=== PATIENT | female | born 1990 | race Caucasian/White ===

== ENCOUNTER → 2023-12-25 | Outpatient (CLI) | payer OTHER, SELFPAY ==
[2024-01-01 21:07] LABS: HPV APTIMA, High Risk Positive (Negative); HPV Genotype 16, Aptima Negative (Negative); HPV Genotype 18,45 Aptima Positive (Negative)
== END | disposition home or self-care (01) ==
PROVIDERS: Referring Provider Nurse Practitioner Family; Visit Provider Nurse Practitioner Family
DX: Z12.4 Encounter for screening for malignant neoplasm of cervix (principal)
CPT/HCPCS: 87624; 88175; G0145

== ENCOUNTER → 2024-03-01 | Outpatient (CLI) | payer OTHER, SELFPAY ==
[2024-03-04 21:07] LABS: Chlamydia By Nucleic Acid AMP Negative (Negative); Gonococcus By Nucleic Acid AMP Negative (Negative)
== END | disposition home or self-care (01) ==
LOC: LABSPEC 15:40
PROVIDERS: Referring Provider Advanced Practice Midwife; Visit Provider Advanced Practice Midwife
DX: Z34.00 Encounter for supervision of normal first pregnancy, unspecified trimester (principal)
CPT/HCPCS: 87086; 87491; 87591

== ENCOUNTER → 2024-04-02 | Outpatient (CLI) | payer OTHER, SELFPAY ==
[2024-04-02 10:59] LABS: Absolute Lymphocyte Count 2.43 X10^3/uL (0.83-4.51); Absolute Neutrophil Count 6.7 X10^3/uL (2.0-7.7); Basophil# 0.03 X10^3/uL; Basophil% 0.3 % (0-1); Eosinophil# 0.13 X10^3/uL; Eosinophils% 1.3 % (0-5); Hematocrit 38.5 % (37-47); Lymphocyte # 2.43 X10^3/ul (0.83-4.51); Lymphocyte % 24.8 % (19-41); Mean Corp Hgb Conc 33.8 g/dL (32-36); Mean Corpuscular Hgb 28.1 pg (27.0-32.0); Mean Corpuscular Volume 83.2 fL (81-99); Mean Platelet Vol. 11.4 fl (6.2-12.0); Monocyte# 0.51 X10^3/uL; Monocyte% 5.2 % (0-10); NRBC Flagged by Analyzer 0 % (0-5); Neutrophil # 6.67 X10^3/uL (2.7-7.7); Neutrophil % 68.1 % (47-70); Platelet Count 269 K/mm3 (150-450); RBC Distribution Width CV 13.6 % (11.6-14.6); RBC Distribution Width SD 41.1 fl (35.1-43.9); Red Blood Count 4.63 M/mm3 (4.2-5.4); White Blood Count 9.8 K/mm3 (4.4-11.0)
[2024-04-02 20:39] LABS: HIV Nonreactive (Nonreactive); Hepatitis C Antibody Nonreactive (Nonreactive); Rubella IgG REAC (Nonreactive); Syphilis Antibodies Nonreactive (Nonreactive)
[2024-04-03 16:05] LABS: Hepatitis B Surface Antigen Nonreactive (Nonreactive)
[2024-04-03 20:54] LABS: Hemoglobin A1c 5.2 % (<=5.6)
== END | disposition home or self-care (01) ==
LOC: BWCLAB 09:51
PROVIDERS: Referring Provider Advanced Practice Midwife; Visit Provider Advanced Practice Midwife
DX: Z34.01 Encounter for supervision of normal first pregnancy, first trimester (principal)
CPT/HCPCS: 83036; 85025; 86703; 86762; 86780; 86803; 86850; 86900; 86901; 87340

== ENCOUNTER → 2024-06-24 | Outpatient (CLI) | payer OTHER, SELFPAY ==
[2024-06-24 16:58] LABS: Absolute Lymphocyte Count 1.97 X10^3/uL (0.83-4.51); Absolute Neutrophil Count 7.8 X10^3/uL (2.0-7.7); Basophil# 0.02 X10^3/uL; Basophil% 0.2 % (0-1); Hematocrit 33.4 % (37-47); Lymphocyte # 1.97 X10^3/ul (0.83-4.51); Lymphocyte % 18.8 % (19-41); Mean Corp Hgb Conc 32.9 g/dL (32-36); Mean Corpuscular Hgb 27.9 pg (27.0-32.0); Mean Corpuscular Volume 84.8 fL (81-99); Mean Platelet Vol. 10.4 fl (6.2-12.0); Monocyte# 0.52 X10^3/uL; NRBC Flagged by Analyzer 0 % (0-5); Neutrophil % 74.5 % (47-70); Platelet Count 290 K/mm3 (150-450); RBC Distribution Width CV 14.4 % (11.6-14.6); RBC Distribution Width SD 44.6 fl (35.1-43.9); Red Blood Count 3.94 M/mm3 (4.2-5.4); White Blood Count 10.5 K/mm3 (4.4-11.0)
[2024-06-24 17:47] LABS: Glucose Challenge Gest 1H 50g 139 mg/dL (70-140); HIV Nonreactive (Nonreactive); Syphilis Antibodies Nonreactive (Nonreactive)
== END | disposition home or self-care (01) ==
LOC: BWCLAB 15:37
PROVIDERS: Obstetrics & Gynecology; Referring Provider Advanced Practice Midwife; Visit Provider Advanced Practice Midwife
DX: O09.92 Supervision of high risk pregnancy, unspecified, second trimester (principal); Z3A.00 Weeks of gestation of pregnancy not specified; Z13.1 Encounter for screening for diabetes mellitus
CPT/HCPCS: 36415; 82950; 85025; 86703; 86780

== ENCOUNTER → 2024-07-03 | Outpatient (CLI) | payer OTHER, SELFPAY ==
[2024-07-03 07:13] LABS: Glucose GTT-Gestation. Fasting 96 mg/dL (<105)
[2024-07-03 11:26] LABS: Glucose GTT-Gestational 1 Hr 162 mg/dL (<190)
[2024-07-03 13:07] LABS: Glucose GTT-Gestational 3 Hr 134 L (<145)
[2024-07-03 13:27] LABS: Glucose GTT-Gestational 2 Hr 103 mg/dL (<165)
== END | disposition home or self-care (01) ==
LOC: LAB 06:44
PROVIDERS: Referring Provider Obstetrics & Gynecology; Visit Provider Obstetrics & Gynecology
DX: Z13.1 Encounter for screening for diabetes mellitus (principal)
CPT/HCPCS: 36415; 82951; 82952

== ENCOUNTER → 2024-07-22 | Outpatient (CLI) | payer OTHER, SELFPAY ==
--- NOTE | 2024-07-22 16:05 | US_ITS ---
PROCEDURE: OB LIMITED WITH BIOMETRICS 07/22/2024 REASON FOR EXAM: GROWTH TECHNIQUE: OB LIMITED WITH BIOMETRICS COMPARISON: None FINDINGS Number: 1 Position: Vertex Placental Position: Posterior and not low-lying Placental Abnormalities: No evidence of previa. DIMENSIONS: Biparietal Diameter: 8.3 cm: 33 weeks and 4 days: 98 percentile./ Head Circumference: 30.4 cm: 33 weeks and 6 days: 93rd percentile/ Abdominal Circumference: 27.4 cm: 31 weeks and 3 days: 72nd percentile/ Femur Length: 6.1 cm: 31 weeks and 6 days: 71st percentile/ ESTIMATED WEIGHT: 1880 g plus/-282 g ESTIMATED WEIGHT PERCENTILE (24+ weeks): 83 ESTIMATED GESTATIONAL AGE: Baseline: 30 weeks and 4 days By Ultrasound: 33 weeks and 0 days ESTIMATED DATE OF DELIVERY: Baseline: September 26, 2024 By Ultrasound: September 09, 2024 BIOPHYSICAL ASSESSMENT: Amniotic Fluid Volume: 5.7 Amniotic Fluid Index: 11.2 (8-24 cm normal range) Cardiac Motion: 152 beats per minute (average) Trunk and Limb Motion: Present. MATERNAL ANATOMY: Adnexa: Neither maternal ovary is successfully identified. US/OB Limited With Biometrics IMPRESSION: Single live intrauterine gestation with a mean gestational age of 33 weeks and 0 days. Reading Location: [facility]--1
== END | disposition home or self-care (01) ==
LOC: US 16:02
PROVIDERS: Referring Provider Nurse Practitioner Women's Health; Visit Provider Nurse Practitioner Women's Health
DX: O26.849 Uterine size-date discrepancy, unspecified trimester (principal); Z3A.00 Weeks of gestation of pregnancy not specified
CPT/HCPCS: 76816

== ENCOUNTER → 2024-08-21 | Outpatient (CLI) | payer OTHER, SELFPAY ==
--- NOTE | 2024-08-21 07:55 | US_ITS ---
PROCEDURE: OB LIMITED WITH BIOMETRICS 08/21/2024 REASON FOR EXAM: GROWTH Large for dates. TECHNIQUE: OB LIMITED WITH BIOMETRICS COMPARISON: Prior study dated July 22, 2024. FINDINGS Number: 1 Position: Vertex Placental Position: Posterior and not low-lying. Placental Abnormalities: No evidence of previa. DIMENSIONS: Biparietal Diameter: 9.4 cm: 38 weeks and 2 days: 100 percentile/ Head Circumference: 32.5 cm: 36 weeks and 5 days: 64 percentile/ Abdominal Circumference: 33.2 cm: 37 weeks and 1 day: 97 percentile/ Femur Length: 7.2 cm: 37 weeks and 1 day: 91st percentile/ ESTIMATED WEIGHT: 3220 g plus/-483 g ESTIMATED WEIGHT PERCENTILE (24+ weeks): 97 ESTIMATED GESTATIONAL AGE: Baseline: 34 weeks and 6 days By Ultrasound: 36 weeks and 6 days ESTIMATED DATE OF DELIVERY: Baseline: September 26, 2024 By Ultrasound: September 12, 2024 BIOPHYSICAL ASSESSMENT: Amniotic Fluid Volume: 5.3 cm Amniotic Fluid Index: 11.5 (8-24 cm normal range) Cardiac Motion: 145 beats per minute (average) Trunk and Limb Motion: Present. MATERNAL ANATOMY: Adnexa: Neither maternal ovary is successfully identified. US/OB Limited With Biometrics IMPRESSION: Single live intrauterine gestation with a mean gestational age of 37 weeks and 1 day. The measurements obtained today fall with the normal expected range. Reading Location: [place] [id number]
--- NOTE | 2024-08-21 07:55 | US_ITS ---
PROCEDURE: OB LIMITED WITH BIOMETRICS 08/21/2024 REASON FOR EXAM: GROWTH Large for dates. TECHNIQUE: OB LIMITED WITH BIOMETRICS COMPARISON: Prior study dated July 22, 2024. FINDINGS Number: 1 Position: Vertex Placental Position: Posterior and not low-lying. Placental Abnormalities: No evidence of previa. DIMENSIONS: Biparietal Diameter: 9.4 cm: 38 weeks and 2 days: 100 percentile/ Head Circumference: 32.5 cm: 36 weeks and 5 days: 64 percentile/ Abdominal Circumference: 33.2 cm: 37 weeks and 1 day: 97 percentile/ Femur Length: 7.2 cm: 37 weeks and 1 day: 91st percentile/ ESTIMATED WEIGHT: 3220 g plus/-483 g ESTIMATED WEIGHT PERCENTILE (24+ weeks): 97 ESTIMATED GESTATIONAL AGE: Baseline: 34 weeks and 6 days By Ultrasound: 36 weeks and 6 days ESTIMATED DATE OF DELIVERY: Baseline: September 26, 2024 By Ultrasound: September 12, 2024 BIOPHYSICAL ASSESSMENT: Amniotic Fluid Volume: 5.3 cm Amniotic Fluid Index: 11.5 (8-24 cm normal range) Cardiac Motion: 145 beats per minute (average) Trunk and Limb Motion: Present. MATERNAL ANATOMY: Adnexa: Neither maternal ovary is successfully identified. US/OB Limited With Biometrics IMPRESSION: Single live intrauterine gestation with a mean gestational age of 37 weeks and 1 day. The measurements obtained today fall with the normal expected range. Reading Location: [place] [id number]
--- OUTSIDE RECORDS SUMMARY | 2024-08-21 08:18 | XMS RPT_ITS | CCD ---
Author Organization [facility] CliniSyga Care Team Providers Care Home Health Care Physician Name Role Phone Ankush CHOPRA-CLaura Attending Provider [phone] Ankush CHOPRA-CLaura Referring Provider [phone] Care Physician, No Primary Primary Care Provider Unavailable Care Physician, No Primary Referring Provider Un available Earline Andrade CNM Attending Provider [phone] Earline Andrade CNM Referring Provider [phone] Shmuel JURADO, Dr. Pollock Attending Provider [phone] NO PRIMARY CARE, MD Primary Care Unavailable KEVIN DEE Attending Unavailable MARIS ARAGON Referring Unavailabl e MARIS ARAGON Referring Unavailabl e NO PRIMARY CARE, Primary Care Unavailable TIMOTEO GUERRERO Attending Unavailable Care Physician, No Primary Primary Care Provider Unavailable Shea Farley Attending Provider [phone] Dr. Rhina Sweeney DO Attending Provider Care Physician, No Primary Primary Care Provider Unavailable Care Physician, No Primary Referring Provider Un available Earline Andrade CNM Attending Provider [phone] Earline Andrade CNM Referring Provider [phone] Dr. Rhina Sweeney DO Referring Provider Jennifre CHOPRA-CShea Referring Provider [phone] Care Physician, No Primary Primary Care Provider Unavailable Care Physician, No Primary Referring Provider Un available Earline Andrade CNM Attending Provider [phone] Earline Andrade CNM Referring Provider [phone] Care Physician, No Primary Primary Care Unava ilable Jennifer PUMP INSTALLATION AND SERVICERShea Referring Unavailable Shea Rodriguez NP Attending Unavailable Care Physician, No Primary Referring Unava ilable Care Physician, No Primary Primary Care Unava ilable Rhina Sweeney Attending Unavailabl e Care Physician, No Primary Primary Care Unava ilable Care Physician, No Primary Referring Unava ilable Maris Aragon Attending Unavailable Care Physician, No Primary Primary Care Unava ilable Care Physician, No Primary Referring Unava ilable Rhina Sweeney Attending Unavailabl e Care Physician, No Primary Primary Care Unava ilable Care Physician, No Primary Referring Unava ilable [place] PUMP INSTALLATION AND SERVICER, Shea Attending Unavailable Care Physician, No Primary Primary Care Unava ilable Care Physician, No Primary Referring Unava ilable Earline Andrade Attending Unavailable Care Physician, No Primary Primary Care Unava ilable Care Physician, No Primary Referring Unava ilable Earline Andrade Attending Unavailable Care Physician, No Primary Primary Care Unava ilable Care Physician, No Primary Referring Unava ilable [place] PU[employer] INSTALLATION AND SERVICER, Shea Attending Unavailable Care Physician, No Primary Primary Care Unava ilable Care Physician, No Primary Referring Unava ilable Jennifer PUMP INSTALLATION AND SERVICER, Shea Attending Unavailable Care Physician, No Primary Primary Care Unava ilable Rhina Sweeney Attending Unavailabl e Care Physician, No Primary Referring Unava ilable Laura Lechuga Attending Unavailable Barkman, Laura Referring Unavailable Laura Lechuga Attending Unavailable Care Physician, No Primary Primary Care Unava ilable Care Physician, No Primary Primary Care Unava ilable Earline Andrade Attending Unavailable Earline Andrade Referring Unavailable Care Physician, No Primary Primary Care Unava ilable Earline Andrade Attending Unavailable Earline Andrade Referring Unavailable Care Physician, No Primary Primary Care Unava ilable Earline Andrade Attending Unavailable Earline Andrade Referring Unavailable Care Physician, No Primary Primary Care Unava ilable Rhina Sweeney Referring Unavailabl e Rhina Sweeney Attending Unavailabl e Care Physician, No Primary Primary Care Unava ilable [place] PU[employer] INSTALLATION AND SERVICER, Shea Referring Unavailable [place] PU[employer] INSTALLATION AND SERVICER, Shea Attending Unavailable Medications Current Medications Medication Drug Class(es) Dates Sig (Normalized) Sig (Original) Blood-Glucose Meter misc (5 sources) Start: 07-03-2024 Blood-Glucose Meter misc Active 0 .MEDSUPPLY 1 0 July 03, 2024 12:00am As directed- Test fasting 3-4 times per week Start: 07-03-2024 Blood-Glucose Meter misc Active 0 .MEDSUPPLY 1 July 03, 2024 12:00am As directed- Test fasting 3-4 times per week Mv-Mins 42-Zeth-Ijgyc No.1-D hearn (Pnv-Revere) 28-1-300 mg capsule (7 sources) Start: 02-23-2024 Mv-Mins 71-Iro n-Folic No.1-Dha (Pnv-Revere) 28-1-300 mg capsule Active NMA PO February 23, 2024 1:00am Problems Active Problems Problem Classification Problem Date Documented Da te Episodic/Chronic Diabetes or abnormal glucose tolerance complicating ; childbirth; or the puerperium (14 sources) with abnormal glucose tolerance test; Translations: [Abnormal glucose complicating ] Onset: 08-12-2024 07-03-2024 Episodic Comment on above: normal 3 hr, however the fasting was elevated. - monitor at home fasting levels normal 3 hr, however the fasting was elevated. - monitor at home fasting levels: 2 wk of readings WNL except 2 and states high carb snack night prior. Will continue to monitor Early or threatened labor (2 sources) Premature uterine contraction; Translations: [False labor before 37 completed weeks of gestation, unspecified trimester] 08-12-2024 Episodic Immunizations and screening for infectious disease (1 source) Encounter for immunization; Translations: [Encounter for immunization] Onset: 07-16-2024 Episodic Other complications of ; puerperium affecting management of mother (10 sources) Large for gestation age fetus 07-16-2024 Episodic Comment on above: Growth US Growth US: 83% EFW, 72% AC 30wk Other complications of (20 sources) Maternal obesity complicating , childbirth and the puerperium, antepartum; Translations: [Obesity complicating , unspecified trimester] 04-04-2024 Chronic Comment on above: HgbA1c 5.2 , BMI 44. HgbA1c 5.2 , BMI 44. - weekly nsts starting at 34 weeks Other complications of (1 source) Obesity complicating , third trimester; Translations: [Obesity complicating , third trimester] Onset: 08-12-2024 Chronic Other complications of (1 source) Obesity complicating , second trimester; Translations: [Obesity complicating , second trimester] Onset: 06-24-2024 Chronic Other complications of (1 source) Obesity complicating , unspecified trimester; Translations: [Obesity complicating , unspecified trimester] Onset: 04-02-2024 Chronic Other complications of (20 sources) High risk ; Translations: [Supervision of high risk , unspecified, unspecified trimester] 04-03-2024 Episodic Comment on above: PRR, , LORY , Mc Other complications of (3 sources) Excessive growth affecting management of mother; Translations: [Maternal care for excessive growth, unspecified trimester, not applicable or unspecified] 08-12-2024 Episodic Comment on above: Growth US: 83% EFW, 72% AC 30wk. Rpt 4wkNST wkly at 34 wk. FBS daily WNL Other complications of (2 sources) Uterine size-date discrepancy, unspecified trimester; Translations: [Uterine size-date discrepancy, unspecified trimester] Onset: 07-25-2024 Episodic Other complications of (1 source) Maternal care for excessive growth, unspecified trimester, not applicable or unspecified; Translations: [Maternal care for excessive growth, unspecified trimester, not applicable or unspecified] Onset: 08-19-2024 Episodic Other complications of (1 source) Other abnormal findings on screening of mother; Translations: [Other abnormal findings on screening of mother] Onset: 08-19-2024 Episodic Other complications of (1 source) Supervision of high risk , unspecified, third trimester; Translations: [Supervision of high risk , unspecified, third trimester] Onset: 08-12-2024 Episodic Other complications of (1 source) Supervision of high risk , unspecified, second trimester; Translations: [Supervision of high risk , unspecified, second trimester] Onset: 06-27-2024 Episodic Other screening for suspected conditions (not mental disorders or infectious disease) (2 sources) Encounter for screening for diabetes mellitus; Translations: [Encounter for screening for malignant neoplasm of cervix] Onset: 01-22-2024 Episodic Other upper respiratory disease (20 sources) Seasonal allergy; Translations: [Other seasonal allergic rhinitis] 12-25-2023 Chronic Other upper respiratory disease (1 source) Other seasonal allergic rhinitis; Translations: [Other seasonal allergic rhinitis] Onset: 08-12-2024 Chronic Residual codes; unclassified (1 source) 33 weeks gestation of ; Translations: [33 weeks gestation of ] Onset: 08-12-2024 Episodic Residual codes; unclassified (1 source) 26 weeks gestation of ; Translations: [26 weeks gestation of ] Onset: 06-24-2024 Episodic Viral infection (20 sources) Human papilloma virus infection; Translations: [Papillomavirus as the cause of diseases classified elsewhere] Onset: 08-12-2024 01-08-2024 Episodic Comment on above: pap neg 2017 & 2023. Repeat pap 2024 pap neg 2017 & 2023. Repeat pap 2024 @ pp visit Past or Other Problems Problem Classification Problem Date Documented Da te Episodic/Chronic Other complications of (1 source) Supervision of high risk , unspecified, unspecified trimester; Translations: [Supervision of high risk , unspecified, unspecified trimester] Onset: 04-02-2024 Episodic Other and delivery including normal (20 sources) Normal ; Translations: [Encounter for supervision of normal first , unspecified trimester] Onset: 03-20-2024 04-02-2024 Episodic Comment on above: NIPT low risk NIPT low risk, nl an atomy Residual codes; unclassified (1 source) 14 weeks gestation of ; Translations: [14 weeks gestation of ] Onset: 04-02-2024 Episodic Residual codes; unclassified (1 source) 10 weeks gestation of ; Translations: [10 weeks gestation of ] Onset: 03-01-2024 Episodic Results Test Name Value Interpretation Reference Range Facility Fiber Analyst Office Visit Reporton 08-19-2024 Fiber Analyst Office Visit Report [facility] [address], [address] [place] [address] OFFICE VISIT Date of Service: 08/19/24 MR#: [id number] Acct: [id number] Name: SAMEER CABALLERO KELSEY Rep #: [id number] : 1990 Provider: Dr. Rhina Santos DO Age/Sex: 34/F [place] [facility] [place]: Signed Intake Vital Signs 07/16/24 15:29 08/12/24 08:12 08/19/24 08:37 08/19/24 08:37 Height 5 ft 5 in 5 ft 5 in 5 ft 5 in 5 ft 5 in Weight: 298 lb 6 oz BMI 49.6 BP 126/77 H Intake Visit Reasons: 35 wk ob/nst 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: 35wk Ob/nst Hematology Nurse Educator Required: No Is patient in pain?: No Allergies No Known Allergies Allergy (Verified 08/19/24 08:35) Medications ???Medication ???Instructions ???Recorded ???Confirmed ???Type multivit-min no.71-iron fum 28 cap PO 02/23/24 08/19/24 History mg-folate no.1 1 mg-dha 300 mg capsule (PNV-Revere) blood sugar diagnostic (Blood #120 ea 07/03/24 08/19/24 Rx Glucose Test strips) blood-glucose meter #1 ea 07/03/24 08/19/24 Rx lancets #100 ea 07/03/24 08/19/24 Rx Last Menstrual Period: 12/21/23 : No Have you fallen in the past year?: No PFSH PFSH Medical History Seasonal allergies History of frequent headaches Surgical History [address] teeth extracted Family History Grandmother CVA (cerebral vascular accident) Maternal Diabetes Maternal Grandfather Myocardial infarction, Onset Age: 54 Maternal Social History adopted: No household members: spouse housing: house number of children: 0 current occupational status: employed current occupation: [employer] current occupational exposures/hazards: No pets and animals: Yes pets and animals: dog(s) history of recent travel: Yes ([place] in January) out of state: Yes out of country: No sexually active: Yes Smoking Status: Never smoker alcohol intake: current alcohol intake frequency: other details: once a month- not while substance use type: does not use well-balanced diet: about half the time caffeine: No eating out: 1-3 times/week during the past year weight has: remained stable what type of physical activity do you participate in: none ganesh/jewish: Latter Day seatbelt use: always do you feel safe at home: Yes additional social history: - Mc - hankins History 1 Elective abortions Hx Para 0 Spontaneous abortions Hx # Term Pregnancies Ectopic pregnancies Hx # Pregnancies Multiple births # of living children HPI 35 wk ob/nst Details: SAMEER CABALLERO is a 34 year old who presents for routine OB visit. OB Visit LORY Calculator Estimated Delivery Date Method Current WG Current Estimate 09/26/24 LMP (Certain) 34w 4d Other Estimates 09/25/24 Ultrasound #1 34w 5d Expected Delivery Route/Plan Labor Preferences- CB/BF classes: scheduled labor support person: Mc labor intervention preferences: open to epidural pain management options preferred: cut cord/dad catch: cord : yes PP control planned: discussed discussed possible routes of delivery and associated risks: [] special requests: [] Specific Issue/Plans Covid status: [] Flu vaccine: [] Tdap vaccine: given Rhogam: na LARC form signed: yes Problem list reviewed and updated with the most current plan of care details and appropriate orders placed. Relevant counseling for the gestational age provided. Continue routine care and follow up unless otherwise noted in visit notes/problem list details Initial Weight: 267 lb Date -???-???-???-???-???- ???-???-???-???-???-? ??-???- EGA Weight BP Urine Prot -???-???-???-???-???- ???-???-???-???-???-? ??-???- Glucose FHR FuHt Pres Dilation -???-???-???-???-???- ???-???-???-???-???-? ??-???- Effaced St Visit Note 03/01/24 -???-???-???-???-???- ???-???-???-???-???-? ??-???- 10w 1d 267 lb 2 oz (+2 oz) 137/83 -???-???-???-???-???- ???-???-???-???-???-? ??-???- 172 -???-???-???-???-???- ???-???-???-???-???-? ??-???- KW- CRL cons with dates. accepts NIPT. Labs at next appt 04/02/24 -???-???-???-???-???- ???-???-???-???-???-? ??-???- 14w 5d 265 lb 8 oz (-1 lb 8 oz) 133/86 Negative -???-???-???-???-???- ???-???-???-???-???-? ??-???- Negative 155 -???-???-???-???-???- ???-???-???-???-???-? ??-???- Sm- no vb cr amping labs today 05/02/24 -???-???-???-???-???- ???-???-???-???-???-? ??-???- 19w 0d 278 lb 2 oz (+11 lb 2 oz) 126/84 Negative -???-???-???-???-???- ???-???-???-???-???-? ??-???- Negative 146 -???-???-???-???-???- ???-???-???-???-???-? ??-???- (more content not included)... Normal [facility] - Chemistry and C hemistry - challengeOrdered By: Rhina Murcia on 08-12-2024 Glucose Ql (U) Negative [facility] - UrinalysisOrder ed By: Rhina Divina on 08-12-2024 Protein Ql (U) Negative [facility] Fiber Analyst Office Visit Reporton 08-12-2024 Fiber Analyst Office Visit Report [facility] [address], [address] [place] [address] OFFICE VISIT Date of Service: 08/12/24 MR#: [id number] Acct: [id number] Name: SAMEER CABALLERO Rep #: [id number] : 1990 Provider: Dr. Rhina Santos DO Age/Sex: 34/F [place] [facility] [place] Status: Signed Intake Vital Signs 07/16/24 15:29 07/30/24 08:28 08/12/24 08:11 08/12/24 08:12 Height 5 ft 5 in 5 ft 5 in 5 ft 5 in 5 ft 5 in Weight: 297 lb 6 oz BMI 49.4 BP 130/84 H Intake Visit Reasons: 34 wk ob/NST Hematology Nurse Educator Required: No Is patient in pain?: No Allergies No Known Allergies Allergy (Verified 08/12/24 08:11) Medications ???Medication ???Instructions ???Recorded ???Confirmed ???Type multivit-min no.71-iron fum 28 cap PO 02/23/24 08/12/24 History mg-folate no.1 1 mg-dha 300 mg capsule (PNV-Revere) blood sugar diagnostic (Blood #120 ea 07/03/24 08/12/24 Rx Glucose Test strips) blood-glucose meter #1 ea 07/03/24 08/12/24 Rx lancets #100 ea 07/03/24 08/12/24 Rx Last Menstrual Period: 12/21/23 Zika: Zika virus screening: Negative : No PFSH PFSH Medical History Seasonal allergies History of frequent headaches Surgical History [address] teeth extracted Family History Grandmother CVA (cerebral vascular accident) Maternal Diabetes Maternal Grandfather Myocardial infarction, Onset Age: 54 Maternal Social History adopted: No household members: spouse housing: house number of children: 0 current occupational status: employed current occupation: [employer] current occupational exposures/hazards: No pets and animals: Yes pets and animals: dog(s) history of recent travel: Yes ([place] in January) out of state: Yes out of country: No sexually active: Yes Smoking Status: Never smoker alcohol intake: current alcohol intake frequency: other details: once a month- not while substance use type: does not use well-balanced diet: about half the time caffeine: No eating out: 1-3 times/week during the past year weight has: remained stable what type of physical activity do you participate in: none ganesh/jewish: Latter Day seatbelt use: always do you feel safe at home: Yes additional social history: - Mc - hankins History 1 Elective abortions Hx Para 0 Spontaneous abortions Hx # Term Pregnancies Ectopic pregnancies Hx # Pregnancies Multiple births # of living children HPI 34 wk ob/NST Details: SAMEER CABALLERO is a 34 year old who presents for routine OB visit. OB Visit LORY Calculator Estimated Delivery Date Method Current WG Current Estimate 09/26/24 LMP (Certain) 33w 4d Other Estimates 09/25/24 Ultrasound #1 33w 5d Expected Delivery Route/Plan Labor Preferences- CB/BF classes: scheduled labor support person: Mc labor intervention preferences: open to epidural pain management options preferred: cut cord/dad catch: cord : yes PP control planned: discussed discussed possible routes of delivery and associated risks: [] special requests: [] Specific Issue/Plans Covid status: [] Flu vaccine: [] Tdap vaccine: given Rhogam: na LARC form signed: yes Problem list reviewed and updated with the most current plan of care details and appropriate orders placed. Relevant counseling for the gestational age provided. Continue routine care and follow up unless otherwise noted in visit notes/problem list details Initial Weight: 267 lb Date -???-???-???-???-???- ???-???-???-???-???-? ??-???- EGA Weight BP Urine Prot -???-???-???-???-???- ???-???-???-???-???-? ??-???- Glucose FHR FuHt Pres Dilation -???-???-???-???-???- ???-???-???-???-???-? ??-???- Effaced St Visit Note 03/01/24 -???-???-???-???-???- ???-???-???-???-???-? ??-???- 10w 1d 267 lb 2 oz (+2 oz) 137/83 -???-???-???-???-???- ???-???-???-???-???-? ??-???- 172 -???-???-???-???-???- ???-???-???-???-???-? ??-???- KW- CRL cons with dates. accepts NIPT. Labs at next appt 04/02/24 -???-???-???-???-???- ???-???-???-???-???-? ??-???- 14w 5d 265 lb 8 oz (-1 lb 8 oz) 133/86 Negative -???-???-???-???-???- ???-???-???-???-???-? ??-???- Negative 155 -???-???-???-???-???- ???-???-???-???-???-? ??-???- Sm- no vb cr amping labs today 05/02/24 -???-???-???-???-???- ???-???-???-???-???-? ??-???- 19w 0d 278 lb 2 oz (+11 lb 2 oz) 126/84 Negative -???-???-???-???-???- ???-???-???-???-???-? ??-???- Negative 146 -???-???-???-???-???- ???-???-???-???-???-? ??-???- MH-No VB. N (more content not included)... Normal [facility] - Chemistry and C hemistry - challengeOrdered By: Shea Rodriguez on 07-30-2024 Glucose Ql (U) Negative [facility] - UrinalysisOrder ed By: Shea Rodriguez on 07-30-2024 Protein Ql (U) Negative [facility] Fiber Analyst Office Visit Reporton 07-30-2024 Fiber Analyst Office Visit Report [facility] [address], [address] [place] [address] OFFICE VISIT Date of Service: 07/30/24 MR#: [id number] Acct: [id number] Name: SAMEER CABALLERO Rep #: [id number] : 1990 Provider: NERY hsieh Age/Sex: 34/F [place] [facility] [place] Status: Signed Intake Vital Signs 06/24/24 15:33 07/16/24 15:29 07/30/24 08:22 07/30/24 08:28 Height 5 ft 5 in 5 ft 5 in 5 ft 5 in 5 ft 5 in Weight: 292 lb BMI 48.6 BP 118/78 Intake Visit Reasons: 32wk ob 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: 32 Week OB Hematology Nurse Educator Required: No Is patient in pain?: No Allergies No Known Allergies Allergy (Verified 07/30/24 08:22) Medications ???Medication ???Instructions ???Recorded ???Confirmed ???Type multivit-min no.71-iron fum 28 cap PO 02/23/24 07/30/24 History mg-folate no.1 1 mg-dha 300 mg capsule (PNV-Revere) blood sugar diagnostic (Blood #120 ea 07/03/24 07/30/24 Rx Glucose Test strips) blood-glucose meter #1 ea 07/03/24 07/30/24 Rx lancets #100 ea 07/03/24 07/30/24 Rx Last Menstrual Period: 12/21/23 Zika: Zika virus screening: Negative : No PFSH PFSH Medical History Seasonal allergies History of frequent headaches Surgical History [address] teeth extracted Family History Grandmother CVA (cerebral vascular accident) Maternal Diabetes Maternal Grandfather Myocardial infarction, Onset Age: 54 Maternal Social History adopted: No household members: spouse housing: house number of children: 0 current occupational status: employed current occupation: [employer] current occupational exposures/hazards: No pets and animals: Yes pets and animals: dog(s) history of recent travel: Yes ([facility] in January) out of state: Yes out of country: No sexually active: Yes Smoking Status: Never smoker alcohol intake: current alcohol intake frequency: other details: once a month- not while substance use type: does not use well-balanced diet: about half the time caffeine: No eating out: 1-3 times/week during the past year weight has: remained stable what type of physical activity do you participate in: none ganesh/jewish: Latter Day seatbelt use: always do you feel safe at home: Yes additional social history: - Mc - hankins History 1 Elective abortions Hx Para 0 Spontaneous abortions Hx # Term Pregnancies Ectopic pregnancies Hx # Pregnancies Multiple births # of living children HPI 32wk ob Details: SAMEER CABALLERO is a 34 year old who presents for routine OB visit. OB Visit LORY Calculator Estimated Delivery Date Method Current WG Current Estimate 09/26/24 LMP (Certain) 31w 5d Other Estimates 09/25/24 Ultrasound #1 31w 6d Expected Delivery Route/Plan Labor Preferences- CB/BF classes: scheduled labor support person: Mc labor intervention preferences: open to epidural pain management options preferred: cut cord/dad catch: cord : yes PP control planned: discussed discussed possible routes of delivery and associated risks: [] special requests: [] Specific Issue/Plans Covid status: [] Flu vaccine: [] Tdap vaccine: given Rhogam: na LARC form signed: yes Problem list reviewed and updated with the most current plan of care details and appropriate orders placed. Relevant counseling for the gestational age provided. Continue routine care and follow up unless otherwise noted in visit notes/problem list details Initial Weight: 267 lb Date -???-???-???-???-???- ???-???-???-???-???-? ??-???- EGA Weight BP Urine Prot -???-???-???-???-???- ???-???-???-???-???-? ??-???- Glucose FHR FuHt Pres Dilation -???-???-???-???-???- ???-???-???-???-???-? ??-???- Effaced St Visit Note 03/01/24 -???-???-???-???-???- ???-???-???-???-???-? ??-???- 10w 1d 267 lb 2 oz (+2 oz) 137/83 -???-???-???-???-???- ???-???-???-???-???-? ??-???- 172 -???-???-???-???-???- ???-???-???-???-???-? ??-???- KW- CRL cons with dates. accepts NIPT. Labs at next appt 04/02/24 -???-???-???-???-???- ???-???-???-???-???-? ??-???- 14w 5d 265 lb 8 oz (-1 lb 8 oz) 133/86 Negative -???-???-???-???-???- ???-???-???-???-???-? ??-???- Negative 155 -???-???-???-???-???- ???-???-???-???-???-? ??-???- Sm- no vb cr amping labs today 05/02/24 -???-???-???-???-???- ???-???-???-???-???-? ??-???- 19w 0d 278 lb 2 oz (+11 lb 2 oz) 126/84 Negative -???-???-???-???-???- ???-???-???-???-???-? ??-???- Negative 146 -???-???-???-???-???- ???-???-???-???-???-? ??-???- - (more content not included)... Normal [facility] OB Limited With [employer] 07-22-2024 OB Limited With [facility]ometric[facility] [address] [place] [id number] OB Limited With Biometrics MR#: [id number] Acct: [id number] Name: SAMEER CABALLERO Rep #: [id number] : 1990 F 34 From: Kale moyer MD PCP: Care Physician,No Primary Status: [facility] [place] [facility] CLI Study: OB Limited With Biometrics Date of Exam: 07/22 Exam# [id number] Ordering Dr: Shea Rodriguez NP PUMP INSTALLATION AND SERVICER -C PROCEDURE: OB LIMITED WITH BIOMETRICS 07/22/2024 REASON FOR EXAM: GROWTH TECHNIQUE: OB LIMITED WITH BIOMETRICS COMPARISON: None FINDINGS Number: 1 Position: Vertex Placental Position: Posterior and not low-lying Placental Abnormalities: No evidence of previa. DIMENSIONS: Biparietal Diameter: 8.3 cm: 33 weeks and 4 days: 98 percentile./ Head Circumference: 30.4 cm: 33 weeks and 6 days: 93rd percentile/ Abdominal Circumference: 27.4 cm: 31 weeks and 3 days: 72nd percentile/ Femur Length: 6.1 cm: 31 weeks and 6 days: 71st percentile/ ESTIMATED WEIGHT: 1880 g plus/-282 g ESTIMATED WEIGHT PERCENTILE (24+ weeks): 83 ESTIMATED GESTATIONAL AGE: Baseline: 30 weeks and 4 days By Ultrasound: 33 weeks and 0 days ESTIMATED DATE OF DELIVERY: Baseline: September 26, 2024 By Ultrasound: September 09, 2024 BIOPHYSICAL ASSESSMENT: Amniotic Fluid Volume: 5.7 Amniotic Fluid Index: 11.2 (8-24 cm normal range) Cardiac Motion: 152 beats per minute (average) Trunk and Limb Motion: Present. MATERNAL ANATOMY: Adnexa: Neither maternal ovary is successfully identified. US/OB Limited With Biometrics IMPRESSION: Single live intrauterine gestation with a mean gestational age of 33 weeks and 0 days. 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-C Shea Rodriguez; No Primary Care Physician Dispensing And Measuring Optician: Signed Normal [facility] Laboratory - Chemistry and C hemistry - challengeOrdered By: Shea Rodriguez on 07-16-2024 Glucose Ql (U) Negative [facility] Laboratory - UrinalysisOrder ed By: Shea Rodriguez on 07-16-2024 Protein Ql (U) Negative [facility] Fiber Analyst Office Visit Reporton 07-16-2024 Fiber Analyst Office Visit Report [facility], [address] [place] [address] OFFICE VISIT Date of Service: 07/16/24 MR#: [id number] Acct: [id number] Name: SAMEER CABALLERO Rep #: [id number] : 1990 Provider: NERY hsieh Age/Sex: 34/F [place] [facility] [place] Status: Signed Intake Vital Signs 05/02/24 08:39 06/24/24 15:33 07/16/24 15:29 Height 5 ft 5 in 5 ft 5 in 5 ft 5 in Weight: 295 lb 4 oz BMI 49.1 BP 120/74 Intake Visit Reasons: 30wk ob 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: 30 Week OB Hematology Nurse Educator Required: No Is patient in pain?: No Allergies No Known Allergies Allergy (Verified 07/16/24 15:29) Medications ???Medication ???Instructions ???Recorded ???Confirmed ???Type multivit-min no.71-iron fum 28 cap PO 02/23/24 07/16/24 History mg-folate no.1 1 mg-dha 300 mg capsule (PNV-Revere) blood sugar diagnostic (Blood #120 ea 07/03/24 07/16/24 Rx Glucose Test strips) blood-glucose meter #1 ea 07/03/24 07/16/24 Rx lancets #100 ea 07/03/24 07/16/24 Rx Last Menstrual Period: 12/21/23 Zika: Zika virus screening: Negative : No PFSH PFSH Medical History Seasonal allergies History of frequent headaches Surgical History [address] teeth extracted Family History Grandmother CVA (cerebral vascular accident) Maternal Diabetes Maternal Grandfather Myocardial infarction, Onset Age: 54 Maternal Social History adopted: No household members: spouse housing: house number of children: 0 current occupational status: employed current occupation: [employer] current occupational exposures/hazards: No pets and animals: Yes pets and animals: dog(s) history of recent travel: Yes ([place] in January) out of state: Yes out of country: No sexually active: Yes Smoking Status: Never smoker alcohol intake: current alcohol intake frequency: other details: once a month- not while substance use type: does not use well-balanced diet: about half the time caffeine: No eating out: 1-3 times/week during the past year weight has: remained stable what type of physical activity do you participate in: none ganesh/jewish: Latter Day seatbelt use: always do you feel safe at home: Yes additional social history: - Mc - hankins History 1 Elective abortions Hx Para 0 Spontaneous abortions Hx # Term Pregnancies Ectopic pregnancies Hx # Pregnancies Multiple births # of living children HPI 30wk ob Details: SAMEER CABALLERO is a 34 year old who presents for routine OB visit. OB Visit LORY Calculator Estimated Delivery Date Method Current WG Current Estimate 09/26/24 LMP (Certain) 29w 5d Other Estimates 09/25/24 Ultrasound #1 29w 6d Expected Delivery Route/Plan Labor Preferences- CB/BF classes: scheduled labor support person: Mc labor intervention preferences: open to epidural pain management options preferred: cut cord/dad catch: cord : yes PP control planned: discussed discussed possible routes of delivery and associated risks: [] special requests: [] Specific Issue/Plans Covid status: [] Flu vaccine: [] Tdap vaccine: given Rhogam: na LARC form signed: yes Problem list reviewed and updated with the most current plan of care details and appropriate orders placed. Relevant counseling for the gestational age provided. Continue routine care and follow up unless otherwise noted in visit notes/problem list details Initial Weight: 267 lb Date -???-???-???-???-???- ???-???-???-???-???-? ??-???- EGA Weight BP Urine Prot -???-???-???-???-???- ???-???-???-???-???-? ??-???- Glucose FHR FuHt Pres Dilation -???-???-???-???-???- ???-???-???-???-???-? ??-???- Effaced St Visit Note 03/01/24 -???-???-???-???-???- ???-???-???-???-???-? ??-???- 10w 1d 267 lb 2 oz (+2 oz) 137/83 -???-???-???-???-???- ???-???-???-???-???-? ??-???- 172 -???-???-???-???-???- ???-???-???-???-???-? ??-???- KW- CRL cons with dates. accepts NIPT. Labs at next appt 04/02/24 -???-???-???-???-???- ???-???-???-???-???-? ??-???- 14w 5d 265 lb 8 oz (-1 lb 8 oz) 133/86 Negative -???-???-???-???-???- ???-???-???-???-???-? ??-???- Negative 155 -???-???-???-???-???- ???-???-???-???-???-? ??-???- Sm- no vb cr amping labs today 05/02/24 -???-???-???-???-???- ???-???-???-???-???-? ??-???- 19w 0d 278 lb 2 oz (+11 lb 2 oz) 126/84 Negative -???-???-???-???-???- ???-???-???-???-???-? ??-???- Negative 146 -???-???-???-???-???- ???-???-???-???-???-? ??-???- MH-No VB. Na usea resol (more content not included)... Normal [facility] Gestational GTT 3HR 100gon 0 07-03-2024 GEST GTT 100gm Normal [facility] Comment on above: Order Comment: Y Result Comment: FAST ING 96 Col: 07/03/24 0648 GLUCOSE TOLERANCE TEST FOR Reference Interval GESTATIONAL DIABETES Fasting <105 mg/dL 1 hour <190 mg/dl 2 hour <165 mg/dl 3 hour <145 mg/dl 1 HR GLU 162 Col: 07/03/24 0818 2 HR GLU 103 Col: 07/03/24 0918 3 HR GLU 134 Col: 07/03/24 1014 Performed By: #### L 500.4710 #### [facility] Laboratory [facility] [place], [address] Quantitative serum or plasma 3 hour gestational glucose tolerance panelOrdered By: Rhina Murcia on 07-03-2024 Glucose tolerance 3 hours gestational panel See comment [facility] Comment on above: FASTING 96 Col: 05/09/30 0648GLUCOSE TOLERANCE TEST FOR Reference Interval GESTATIONAL DIABETES Fasting <105 mg/dL 1 hour <190 mg/dl 2 hour <165 mg/dl 3 hour <145 mg/dl 1 HR GLU 162 Col: 07/03/24 0818 2 HR GLU 103 Col: 07/03/24 0918 3 HR GLU 134 Col: 07/03/24 1014 Absolute lymphocyte countOrd ered By: Rhina Murcia on 06-24-2024 Lymphocytes Auto (Unsp spec) [#/Vol] 1.97 10*3/uL 0.83-4.51 [facility] Absolute neutrophil countOrd ered By: Rhina Murcia on 06-24-2024 Neutrophils (Bld) [#/Vol] 7.8 10*3/uL High 2.0-7.7 [facility] Automated lymphocyte count a s percentage of total leukocytesOrdered By: Rhina Murcia on 06-24-2024 Lymphocytes/100 WBC Auto (Unsp spec) 18.8 % Low 19-41 [facility] Basophil percentageOrdered B y: Rhina Murcia on 06-24-2024 Basophils/100 WBC (Bld) 0.2 % 0-1 [facility] CBC W/Diff, Automatedon 06-06 Absolute Lymph 1.97 X10 3/uL Normal 0.83-4.51 [facility] Comment on above: Performed By: #### L 509.8002, L100.0100, L3890.6006, L501.0250 #### [facility] [address] [place], [address] Absolute Neut 7.8 X10 3/uL High 2.0-7.7 [facility] Comment on above: Performed By: #### L 509.8002, L100.0100, L3890.6006, L501.0250 #### [facility] [address] [place], [address] Basophils/100 WBC (Bld) 0.2 % Normal 0-1 [facility] Comment on above: Performed By: #### L 509.8002, L100.0100, L3890.6006, L501.0250 #### [facility] [address] [place], [address] Eosinophils/100 WBC (Bld) 1.0 % Normal 0-5 [facility] Comment on above: Performed By: #### L 509.8002, L100.0100, L3890.6006, L501.0250 #### [facility] [address] [place], [address] Erythrocyte distribution width (RBC) [Ratio] 14.4 % Normal 11.6-14.6 [facility] Comment on above: Performed By: #### L 509.8002, L100.0100, L3890.6006, L501.0250 #### [facility] [address] [place], [address] Hematocrit (Bld) [Volume fraction] 33.4 % Low 37-47 [facility] Comment on above: Performed By: #### L 509.8002, L100.0100, L3890.6006, L501.0250 #### [facility] [address] [place], [address] Hemoglobin (Bld) [Mass/Vol] 11.0 g/dL Low 12.0-15.0 [facility] Comment on above: Performed By: #### L 509.8002, L100.0100, L3890.6006, L501.0250 #### [facility] [address] [place], [address] IG% 0.500 Normal 0.0-0.9 [facility] Comment on above: Result Comment: IG% - Immature Granulocytes (promyelocytes, myelocytes and metamyelocytes) > 1% indicates that a LEFT SHIFT is Present. Performed By: #### L 509.8002, L100.0100, L3890.6006, L501.0250 #### [facility] [address] [place], [address] Lymphocytes/100 WBC (Bld) 18.8 % Low 19-41 [facility] Comment on above: Performed By: #### L 509.8002, L100.0100, L3890.6006, L501.0250 #### [facility] [address] [place], [address] MCH (RBC) [Entitic mass] 27.9 pg Normal 27.0-32.0 [facility] Comment on above: Performed By: #### L 509.8002, L100.0100, L3890.6006, L501.0250 #### [facility] [address] [place], [address] MCHC (RBC) [Mass/Vol] 32.9 g/dL Normal 32-36 [facility] Comment on above: Performed By: #### L 509.8002, L100.0100, L3890.6006, L501.0250 #### [facility] [address] [place], [address] MCV (RBC) [Entitic vol] 84.8 fL Normal 81-99 [facility] Comment on above: Performed By: #### L 509.8002, L100.0100, L3890.6006, L501.0250 #### [facility] [address] [place], [address] Monocytes/100 WBC (Bld) 5.0 % Normal 0-10 [facility] Comment on above: Performed By: #### L 509.8002, L100.0100, L3890.6006, L501.0250 #### [facility] [address] [place], [address] Neutrophils/100 WBC (Bld) 74.5 % High 47-70 [facility] Comment on above: Performed By: #### L 509.8002, L100.0100, L3890.6006, L501.0250 #### [facility] [address] [place], [address] Nucleated RBC (Bld) [#/Vol] 0 10*3/uL Normal 0-5 [facility] Comment on above: Performed By: #### L 509.8002, L100.0100, L3890.6006, L501.0250 #### [facility] [address] [place], [address] Platelet mean volume (Bld) [Entitic vol] 10.4 fL Normal 6.2-12.0 [facility] Comment on above: Performed By: #### L 509.8002, L100.0100, L3890.6006, L501.0250 #### [facility] [address] [place], [address] Platelets (Bld) [#/Vol] 290 10*3/uL Normal 150-450 [facility] Comment on above: Performed By: #### L 509.8002, L100.0100, L3890.6006, L501.0250 #### [facility] [address] [place], [address] RBC (Bld) [#/Vol] 3.94 10*6/uL Low 4.2-5.4 [facility] Comment on above: Performed By: #### L 509.8002, L100.0100, L3890.6006, L501.0250 #### [facility] [address] [place], [address] RDW SD 44.6 fl High 35.1-43.9 [facility] Comment on above: Performed By: #### L 509.8002, L100.0100, L3890.6006, L501.0250 #### [facility] [address] [place], [address] WBC (Bld) [#/Vol] 10.5 10*3/uL Normal 4.4-11.0 [facility] Comment on above: Performed By: #### L 509.8002, L100.0100, L3890.6006, L501.0250 #### [facility] [address] [place], [address] Eosinophil percentageOrdered By: Rhina Murcia on 06-24-2024 Eosinophils/100 WBC (Bld) 1.0 % 0-5 [facility] Erythrocyte distribution wid th ratioOrdered By: Rhina Murcia on 06-24-2024 Erythrocyte distribution width (RBC) [Ratio] 14.4 % 11.6-14.6 [facility] Erythrocyte distribution wid th standard deviationOrdered By: Rhina Murcia on 06-24-2024 Erythrocyte distribution width (RBC) [Ratio] 44.6 fl High 35.1-43.9 [facility] Glucose Challenge Gest 1H 50 abdirahman 06-24-2024 GLU GEST 50g 1H 139 mg/dL Normal 70-140 [facility] Comment on above: Performed By: #### L 509.8002, L100.0100, L3890.6006, L501.0250 #### [facility] [address] [place], [place], [id number] Glucose measurement at 2 virgen rs post-dose gestational glucose tolerance testOrdered By: Rhina Murcia on 06-24-2024 Glucose [Mass/Vol] 139 mg/dL 70-140 [facility] HIVon 06-24-2024 HIV Non-Reactive Normal Nonreactive [facility] Comment on above: Result Comment: Non- Reactive Reactive Repeatedly reactive samples must be confirmed according to CDC recommended confirmatory algorithms. The subresults for either HIVAG or AHIV can be used as an aid in the selection of the confirmation algorithm for reactive samples. Send out specimens with Reactive results to [facility] for confirmation. Order the HIV antibody detection and differentiation: lc#[id number] Performed By: #### L 509.8002, L100.0100, L3890.6006, L501.0250 #### [facility] [address] [place], [place], [address] Hematocrit Auto (Bld) [Volum e fraction]Ordered By: Rhina Murcia on 06-24-2024 Hematocrit (Bld) [Volume fraction] 33.4 % Low 37-47 [facility] Hemoglobin measurementOrdere d By: Rhina Murcia on 06-24-2024 Hemoglobin (Bld) [Mass/Vol] 11.0 g/dL Low 12.0-15.0 [facility] Immature granulocytes/100 WB C Auto (Bld)Ordered By: Rhina Murcia on 06-24-2024 Immature granulocytes/100 WBC (Bld) 0.500 % 0.0-0.9 [facility] Comment on above: IG% - Immature Granu locytes (promyelocytes, myelocytes and metamyelocytes) > 1% indicates that a LEFT SHIFT is Present. Laboratory - Chemistry and C hemistry - challengeOrdered By: Rhina Murcia on 06-24-2024 Glucose Ql (U) Negative [facility] Laboratory - UrinalysisOrder ed By: Rhina Murcia on 06-24-2024 Protein Ql (U) Negative [facility] MCV (mean corpuscular volume ) determinationOrdered By: Rhina Murcia on 06-24-2024 MCV (RBC) [Entitic vol] 84.8 fL 81-99 [facility] Mean corpuscular hemoglobin (MCH) determinationOrdered By: Rhina Murcia on 06-24-2024 MCH (RBC) [Entitic mass] 27.9 pg 27.0-32.0 [facility] Mean corpuscular hemoglobin concentration (MCHC) determinationOrdered By: Rhina Murcia on 06-24-2024 MCHC (RBC) [Mass/Vol] 32.9 g/dL 32-36 [facility] Mean platelet volume determi nationOrdered By: Rhina Murcia on 06-24-2024 Platelet mean volume (Bld) [Entitic vol] 10.4 fL 6.2-12.0 [facility] Monocyte percentageOrdered B y: Rhina Murcia on 06-24-2024 Monocytes/100 WBC (Bld) 5.0 % 0-10 [facility] Neutrophil percentageOrdered By: Rhina Murcia on 06-24-2024 Neutrophils/100 WBC (Bld) 74.5 % High 47-70 [facility] No Panel InformationOrdered By: Rhina Murcia on 06-24-2024 HIV (1&2) Antibody Non-Reactive Nonreactive [facility] Comment on above: Non-ReactiveReactive Repeatedly reactive samples must be confirmed according to CDC recommended confirmatory algorithms. The subresults for either HIVAG or AHIV can be used as an aid in the selection of the confirmation algorithm for reactive samples.Send out specimens with Reactive results to [facility] for confirmation.Order the HIV antibody detection and differentiation: #[id number] Nucleated red blood cell per centageOrdered By: Rhina Murcia on 06-24-2024 Nucleated RBC/100 WBC (Bld) [Ratio] 0 % 0-5 [facility] Fiber Analyst Office Visit Reporton 06-24-2024 Fiber Analyst Office Visit Report [facility] [address] [place] [address], [address] [place] [address] OFFICE VISIT Date of Service: 06/24/24 MR#: [id number] Acct: [id number] Name: SAMEER CABALLERO Rep #: [id number] : 1990 Provider: Dr. Rhina Santos DO Age/Sex: 34/F [place] [facility] [place]: Signed Intake Vital Signs 05/02/24 08:23 05/02/24 08:39 05/29/24 07:31 06/24/24 15:31 06/24/24 15:33 Height 5 ft 5 in 5 ft 5 in 5 ft 5 in 5 ft 5 in 5 ft 5 in Weight: 291 lb 4 oz BMI 48.4 BP 127/83 H Intake Visit Reasons: 27wk ob/glucose Hematology Nurse Educator Required: No Is patient in pain?: No Allergies No Known Allergies Allergy (Verified 06/24/24 15:31) Medications ???Medication ???Instructions ???Recorded ???Confirmed ???Type multivit-min no.71-iron fum 28 cap PO 02/23/24 06/24/24 History mg-folate no.1 1 mg-dha 300 mg capsule (PNV-Revere) Last Menstrual Period: 12/21/23 Zika: Zika virus screening: Negative : No PFSH PFSH Medical History Seasonal allergies History of frequent headaches Surgical History [address] teeth extracted Family History Grandmother CVA (cerebral vascular accident) Maternal Diabetes Maternal Grandfather Myocardial infarction, Onset Age: 54 Maternal Social History adopted: No household members: spouse housing: house number of children: 0 current occupational status: employed current occupation: [employer] current occupational exposures/hazards: No pets and animals: Yes pets and animals: dog(s) history of recent travel: Yes ([place] in January) out of state: Yes out of country: No sexually active: Yes Smoking Status: Never smoker alcohol intake: current alcohol intake frequency: other details: once a month- not while substance use type: does not use well-balanced diet: about half the time caffeine: No eating out: 1-3 times/week during the past year weight has: remained stable what type of physical activity do you participate in: none ganesh/jewish: Latter Day seatbelt use: always do you feel safe at home: Yes additional social history: - Mc - hankins History 1 Elective abortions Hx Para 0 Spontaneous abortions Hx # Term Pregnancies Ectopic pregnancies Hx # Pregnancies Multiple births # of living children HPI 27wk ob/glucose Details: SAMEER CABALLERO is a 34 year old who presents for routine OB visit. OB Visit LORY Calculator Estimated Delivery Date Method Current WG Current Estimate 09/26/24 LMP (Certain) 26w 4d Other Estimates 09/25/24 Ultrasound #1 26w 5d Expected Delivery Route/Plan Labor Preferences- CB/BF classes: [] labor support person: [] labor intervention preferences: [] pain management options preferred: [] cut cord/dad catch: [] : [] PP control planned: [] discussed possible routes of delivery and associated risks: [] special requests: [] Specific Issue/Plans Covid status: [] Flu vaccine: [] Tdap vaccine: [] Rhogam: [] LARC form signed: [] Problem list reviewed and updated with the most current plan of care details and appropriate orders placed. Relevant counseling for the gestational age provided. Continue routine care and follow up unless otherwise noted in visit notes/problem list details Initial Weight: 267 lb Date -???-???-???-???-???- ???-???-???-???-???-? ??-???- EGA Weight BP Urine Prot -???-???-???-???-???- ???-???-???-???-???-? ??-???- Glucose FHR FuHt Pres Dilation -???-???-???-???-???- ???-???-???-???-???-? ??-???- Effaced St Visit Note 03/01/24 -???-???-???-???-???- ???-???-???-???-???-? ??-???- 10w 1d 267 lb 2 oz (+2 oz) 137/83 -???-???-???-???-???- ???-???-???-???-???-? ??-???- 172 -???-???-???-???-???- ???-???-???-???-???-? ??-???- KW- CRL cons with dates. accepts NIPT. Labs at next appt 04/02/24 -???-???-???-???-???- ???-???-???-???-???-? ??-???- 14w 5d 265 lb 8 oz (-1 lb 8 oz) 133/86 Negative -???-???-???-???-???- ???-???-???-???-???-? ??-???- Negative 155 -???-???-???-???-???- ???-???-???-???-???-? ??-???- Sm- no vb cr amping labs today 05/02/24 -???-???-???-???-???- ???-???-???-???-???-? ??-???- 19w 0d 278 lb 2 oz (+11 lb 2 oz) 126/84 Negative -???-???-???-???-???- ???-???-???-???-???-? ??-???- Negative 146 -???-???-???-???-???- ???-???-???-???-???-? ??-???- MH-No VB. Na usea resolved. Anatomy US next week 05/29/24 -???-???-???-???-???- ???-???-???-???-???-? ??-???- 22w 6d 285 lb 6 oz (+18 lb 6 oz) 120/80 Negative -???-???-???-???-???- ?? (more content not included)... Normal [facility] Platelet countOrdered By: Valdemar Murcia on 06-24-2024 Platelets (Bld) [#/Vol] 290 10*3/uL 150-450 [facility] RBC Auto (Bld) [#/Vol]Ordere d By: Rhina Murcia on 06-24-2024 RBC (Bld) [#/Vol] 3.94 10*6/uL Low 4.2-5.4 [facility] Syphilis Antibodieson 2024 Syphilis Abs Non-Reactive Normal Nonreactive [facility] Comment on above: Performed By: #### L 509.8002, L100.0100, L3890.6006, L501.0250 #### [facility] [address] [place], [place] [address] [place], [address] White blood cell (WBC) count Ordered By: Rhina Murcia on 06-24-2024 WBC (Bld) [#/Vol] 10.5 10*3/uL 4.4-11.0 [facility] Laboratory - Chemistry and C hemistry - challengeOrdered By: Earline Andrade on 05-29-2024 Glucose Ql (U) Negative [facility] Laboratory - UrinalysisOrder ed By: Earline Andrade on 05-29-2024 Protein Ql (U) Negative [facility] Fiber Analyst Office Visit Reporton 05-29-2024 Fiber Analyst [facility] [address] [place] [address], [address] [place] [address] OFFICE VISIT Date of Service: 05/29/24 MR#: [id number] Acct: [id number] Name: SAMEER CABALLERO Rep #: [id number] : 1990 Provider: MARIO Fournier ams Age/Sex: 34/F Location: [facility] [place] Status: Signed Intake Vital Signs 03/01/24 14:33 05/02/24 08:39 05/29/24 07:25 05/29/24 07:31 Height 5 ft 5 in 5 ft 5 in 5 ft 5 in 5 ft 5 in Weight: 285 lb 6 oz BMI 47.5 BP 120/80 Intake Visit Reasons: 23wk ob Hematology Nurse Educator Required: No Is patient in pain?: No Allergies No Known Allergies Allergy (Verified 05/29/24 07:23) Medications ???Medication ???Instructions ???Recorded ???Confirmed ???Type multivit-min no.71-iron fum 28 cap PO 02/23/24 05/29/24 History mg-folate no.1 1 mg-dha 300 mg capsule (PNV-Revere) Last Menstrual Period: 12/21/23 Do you think of yourself as: straight/heterosexual Current gender identity: female Zika: Zika virus screening: Negative : No PFSH PFSH Medical History Seasonal allergies History of frequent headaches Surgical History [address] teeth extracted Family History Grandmother CVA (cerebral vascular accident) Maternal Diabetes Maternal Grandfather Myocardial infarction, Onset Age: 54 Maternal Social History adopted: No household members: spouse housing: house number of children: 0 current occupational status: employed current occupation: [employer] current occupational exposures/hazards: No pets and animals: Yes pets and animals: dog(s) history of recent travel: Yes ([place] in January) out of state: Yes out of country: No sexually active: Yes do you think of yourself as: straight/heterosexual current gender identity: female Smoking Status: Never smoker alcohol intake: current alcohol intake frequency: other details: once a month- not while substance use type: does not use well-balanced diet: about half the time caffeine: No eating out: 1-3 times/week during the past year weight has: remained stable what type of physical activity do you participate in: none ganesh/jewish: Latter Day seatbelt use: always do you feel safe at home: Yes additional social history: - Mc - hankins History 1 Elective abortions Hx Para 0 Spontaneous abortions Hx # Term Pregnancies Ectopic pregnancies Hx # Pregnancies Multiple births # of living children HPI 23wk ob Details: SAMEER CABALLERO is a 34 year old who presents for routine OB visit. OB Visit LORY Calculator Estimated Delivery Date Method Current WG Current Estimate 09/26/24 LMP (Certain) 22w 6d Other Estimates 09/25/24 Ultrasound #1 23w 0d Expected Delivery Route/Plan Labor Preferences- CB/BF classes: [] labor support person: [] labor intervention preferences: [] pain management options preferred: [] cut cord/dad catch: [] : [] PP control planned: [] discussed possible routes of delivery and associated risks: [] special requests: [] Specific Issue/Plans Covid status: [] Flu vaccine: [] Tdap vaccine: [] Rhogam: [] LARC form signed: [] Problem list reviewed and updated with the most current plan of care details and appropriate orders placed. Relevant counseling for the gestational age provided. Continue routine care and follow up unless otherwise noted in visit notes/problem list details Initial Weight: 267 lb Date -???-???-???-???-???- ???-???-???-???-???-? ??-???- EGA Weight BP Urine Prot -???-???-???-???-???- ???-???-???-???-???-? ??-???- Glucose FHR FuHt Pres Dilation -???-???-???-???-???- ???-???-???-???-???-? ??-???- Effaced St Visit Note 03/01/24 -???-???-???-???-???- ???-???-???-???-???-? ??-???- 10w 1d 267 lb 2 oz (+2 oz) 137/83 -???-???-???-???-???- ???-???-???-???-???-? ??-???- 172 -???-???-???-???-???- ???-???-???-???-???-? ??-???- KW- CRL cons with dates. accepts NIPT. Labs at next appt 04/02/24 -???-???-???-???-???- ???-???-???-???-???-? ??-???- 14w 5d 265 lb 8 oz (-1 lb 8 oz) 133/86 Negative -???-???-???-???-???- ???-???-???-???-???-? ??-???- Negative 155 -???-???-???-???-???- ???-???-???-???-???-? ??-???- Sm- no vb cr amping labs today 05/02/24 -???-???-???-???-???- ???-???-???-???-???-? ??-???- 19w 0d 278 lb 2 oz (+11 lb 2 oz) 126/84 Negative -???-???-???-???-???- ???-???-???-???-???-? ??-???- Negative 146 -???-???-???-???-???- ???-???-???-???-???-? ??-???- MH-No VB. Na usea resolved. Anatomy US next week 05/29/24 -???-???-???-???-???- ???-???- (more content not included)... Normal [facility] - Chemistry and C hemistry - challengeOrdered By: Shea Rodriguez on 05-02-2024 Glucose Ql (U) Negative [facility] - UrinalysisOrder ed By: Shea Rodriguez on 05-02-2024 Protein Ql (U) Negative [facility] Fiber Analyst Office Visit Reporton 05-02-2024 Fiber Analyst Office Visit Report [facility] [address], [address] [place] [address] OFFICE VISIT Date of Service: 05/02/24 MR#: [id number] Acct: [id number] Name: SAMEER CABALLERO Rep #: [id number] : 1990 Provider: NERY hsieh Age/Sex: 33/F [place] [facility] [place]: Signed Intake Vital Signs 03/01/24 14:33 04/02/24 09:19 05/02/24 08:23 Height 5 ft 5 in 5 ft 5 in 5 ft 5 in Weight: 278 lb 2 oz BMI 46.3 BP 126/84 H Intake Visit Reasons: 18 wk ob 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: 18 Week OB Hematology Nurse Educator Required: No Is patient in pain?: No Allergies No Known Allergies Allergy (Verified 05/02/24 08:23) Medications ???Medication ???Instructions ???Recorded ???Confirmed ???Type multivit-min no.71-iron fum 28 cap PO 02/23/24 05/02/24 History mg-folate no.1 1 mg-dha 300 mg capsule (PNV-Revere) Last Menstrual Period: 12/21/23 Zika: Zika virus screening: Negative : No PFSH PFSH Medical History Seasonal allergies History of frequent headaches Surgical History [address] teeth extracted Family History Grandmother CVA (cerebral vascular accident) Maternal Diabetes Maternal Grandfather Myocardial infarction, Onset Age: 54 Maternal Social History adopted: No household members: spouse housing: house number of children: 0 current occupational status: employed current occupation: [employer] current occupational exposures/hazards: No pets and animals: Yes pets and animals: dog(s) history of recent travel: Yes ([place] in January) out of state: Yes out of country: No sexually active: Yes Smoking Status: Never smoker alcohol intake: current alcohol intake frequency: other details: once a month- not while substance use type: does not use well-balanced diet: about half the time caffeine: No eating out: 1-3 times/week during the past year weight has: remained stable what type of physical activity do you participate in: none ganesh/jewish: Latter Day seatbelt use: always do you feel safe at home: Yes additional social history: - Mc - hankins History 1 Elective abortions Hx Para 0 Spontaneous abortions Hx # Term Pregnancies Ectopic pregnancies Hx # Pregnancies Multiple births # of living children HPI 18 wk ob Details: SAMEER CABALLERO is a 33 year old who presents for routine OB visit. OB Visit LORY Calculator Estimated Delivery Date Method Current WG Current Estimate 09/26/24 LMP (Certain) 19w 0d Other Estimates 09/25/24 Ultrasound #1 19w 1d Expected Delivery Route/Plan Labor Preferences- CB/BF classes: [] labor support person: [] labor intervention preferences: [] pain management options preferred: [] cut cord/dad catch: [] : [] PP control planned: [] discussed possible routes of delivery and associated risks: [] special requests: [] Specific Issue/Plans Covid status: [] Flu vaccine: [] Tdap vaccine: [] Rhogam: [] LARC form signed: [] Problem list reviewed and updated with the most current plan of care details and appropriate orders placed. Relevant counseling for the gestational age provided. Continue routine care and follow up unless otherwise noted in visit notes/problem list details Initial Weight: 267 lb Date -???-???-???-???-???- ???-???-???-???-???-? ??-???- EGA Weight BP Urine Prot -???-???-???-???-???- ???-???-???-???-???-? ??-???- Glucose FHR FuHt Pres Dilation -???-???-???-???-???- ???-???-???-???-???-? ??-???- Effaced St Visit Note 03/01/24 -???-???-???-???-???- ???-???-???-???-???-? ??-???- 10w 1d 267 lb 2 oz (+2 oz) 137/83 -???-???-???-???-???- ???-???-???-???-???-? ??-???- 172 -???-???-???-???-???- ???-???-???-???-???-? ??-???- KW- CRL cons with dates. accepts NIPT. Labs at next appt 04/02/24 -???-???-???-???-???- ???-???-???-???-???-? ??-???- 14w 5d 265 lb 8 oz (-1 lb 8 oz) 133/86 Negative -???-???-???-???-???- ???-???-???-???-???-? ??-???- Negative 155 -???-???-???-???-???- ???-???-???-???-???-? ??-???- Sm- no vb cr amping labs today 05/02/24 -???-???-???-???-???- ???-???-???-???-???-? ??-???- 19w 0d 278 lb 2 oz (+11 lb 2 oz) 126/84 Negative -???-???-???-???-???- ???-???-???-???-???-? ??-???- Negative 146 -???-???-???-???-???- ???-???-???-???-???-? ??-???- MH-No VB. Na usea resolved. Anatomy US next week ACOG First Trimester First Trimester: Desire for , Alcohol, Tobacco Cessation, Illicit/Recreational Drug/Substance Use, Intimate Partner Violence, Barriers to care (more content not included)... Normal [facility] Hemoglobin A1con 04-03-2024 HbA1c (Bld) [Mass fraction] 5.2 % Low <=5.6 [facility] Comment on above: Performed By: #### L 509.8002, L100.0100, L3890.6006, L501.0250 #### [facility] [address] [place], [address] L3890.6102on 04-03-2024 HEP B Surf Ag Non-Reactive Normal Nonreactive [facility] Comment on above: Result Comment: Reac tive: Presumptive evidence of HBV. Repeatedly reactive samples must be confirmed using a neutralization test (Ele[employer]ys HBsAg Confirmatory Test) Non-Reactive: HBsAg not detected; does not exclude the possibility of exposure to HBV Performed By: #### L 509.8002, L100.0100, L3890.6006, L501.0250 #### [facility] [address] [place], [address] Absolute lymphocyte countOrd ered By: Earline Andrade on 04-02-2024 Lymphocytes Auto (Unsp spec) [#/Vol] 2.43 10*3/uL 0.83-4.51 [facility] Absolute neutrophil countOrd ered By: Earline Andrade on 04-02-2024 Neutrophils (Bld) [#/Vol] 6.7 10*3/uL 2.0-7.7 [facility] Automated lymphocyte count a s percentage of total leukocytesOrdered By: Earilne Andrade on 04-02-2024 Lymphocytes/100 WBC Auto (Unsp spec) 24.8 % 19-41 [facility] Basophil percentageOrdered B y: Earline Andrade on 04-02-2024 Basophils/100 WBC (Bld) 0.3 % 0-1 [facility] CBC W/Diff, Automatedon 03-10 Absolute Lymph 2.43 X10 3/uL Normal 0.83-4.51 [facility] Comment on above: Performed By: #### L 509.8002, BTS, L900.0098, L3890.6102, L100.0100, L501.9985, L3890.6301, L3890.6006, L509.4006 #### [facility] [address] [place], [address] Absolute Neut 6.7 X10 3/uL Normal 2.0-7.7 [facility] Comment on above: Performed By: #### L 509.8002, BTS, L900.0098, L3890.6102, L100.0100, L501.9985, L3890.6301, L3890.6006, L509.4006 #### [facility] [address] [place], [address] Basophils/100 WBC (Bld) 0.3 % Normal 0-1 [facility] Comment on above: Performed By: #### L 509.8002, BTS, L900.0098, L3890.6102, L100.0100, L501.9985, L3890.6301, L3890.6006, L509.4006 #### [facility] [address] [place], [address] Eosinophils/100 WBC (Bld) 1.3 % Normal 0-5 [facility] Comment on above: Performed By: #### L 509.8002, BTS, L900.0098, L3890.6102, L100.0100, L501.9985, L3890.6301, L3890.6006, L509.4006 #### [facility] [address] [place], [address] Erythrocyte distribution width (RBC) [Ratio] 13.6 % Normal 11.6-14.6 [facility] Comment on above: Performed By: #### L 509.8002, BTS, L900.0098, L3890.6102, L100.0100, L501.9985, L3890.6301, L3890.6006, L509.4006 #### [facility] [address] [facility] [place], [address] Hematocrit (Bld) [Volume fraction] 38.5 % Normal 37-47 [facility] Comment on above: Performed By: #### L 509.8002, BTS, L900.0098, L3890.6102, L100.0100, L501.9985, L3890.6301, L3890.6006, L509.4006 #### [facility] [address] [place], [address] Hemoglobin (Bld) [Mass/Vol] 13.0 g/dL Normal 12.0-15.0 [facility] Comment on above: Performed By: #### L 509.8002, BTS, L900.0098, L3890.6102, L100.0100, L501.9985, L3890.6301, L3890.6006, L509.4006 #### [facility] [address] [place], [address] IG% 0.300 Normal 0.0-0.9 [facility] Comment on above: Result Comment: IG% - Immature Granulocytes (promyelocytes, myelocytes and metamyelocytes) > 1% indicates that a LEFT SHIFT is Present. Performed By: #### L 509.8002, BTS, L900.0098, L3890.6102, L100.0100, L501.9985, L3890.6301, L3890.6006, L509.4006 #### [facility] [address] [place], [address] Lymphocytes/100 WBC (Bld) 24.8 % Normal 19-41 [facility] Comment on above: Performed By: #### L 509.8002, BTS, L900.0098, L3890.6102, L100.0100, L501.9985, L3890.6301, L3890.6006, L509.4006 #### [facility] [address] [place], [address] MCH (RBC) [Entitic mass] 28.1 pg Normal 27.0-32.0 [facility] Comment on above: Performed By: #### L 509.8002, BTS, L900.0098, L3890.6102, L100.0100, L501.9985, L3890.6301, L3890.6006, L509.4006 #### [facility] [address] [place], [address] MCHC (RBC) [Mass/Vol] 33.8 g/dL Normal 32-36 [facility] Comment on above: Performed By: #### L 509.8002, BTS, L900.0098, L3890.6102, L100.0100, L501.9985, L3890.6301, L3890.6006, L509.4006 #### [facility] [address] [place], [address] MCV (RBC) [Entitic vol] 83.2 fL Normal 81-99 [facility] Comment on above: Performed By: #### L 509.8002, BTS, L900.0098, L3890.6102, L100.0100, L501.9985, L3890.6301, L3890.6006, L509.4006 #### [facility] [address] [place], [address] Monocytes/100 WBC (Bld) 5.2 % Normal 0-10 [facility] Comment on above: Performed By: #### L 509.8002, BTS, L900.0098, L3890.6102, L100.0100, L501.9985, L3890.6301, L3890.6006, L509.4006 #### [facility] [address] [place], [address] Neutrophils/100 WBC (Bld) 68.1 % Normal 47-70 [facility] Comment on above: Performed By: #### L 509.8002, BTS, L900.0098, L3890.6102, L100.0100, L501.9985, L3890.6301, L3890.6006, L509.4006 #### [facility] [address] [place], [address] Nucleated RBC (Bld) [#/Vol] 0 10*3/uL Normal 0-5 [facility] Comment on above: Performed By: #### L 509.8002, BTS, L900.0098, L3890.6102, L100.0100, L501.9985, L3890.6301, L3890.6006, L509.4006 #### [facility] [address] [place], [address] Platelet mean volume (Bld) [Entitic vol] 11.4 fL Normal 6.2-12.0 [facility] Comment on above: Performed By: #### L 509.8002, BTS, L900.0098, L3890.6102, L100.0100, L501.9985, L3890.6301, L3890.6006, L509.4006 #### [facility] [address] [place], [address] ( Platelets (Bld) [#/Vol] 269 10*3/uL Normal 150-450 [facility] Comment on above: Performed By: #### L 509.8002, BTS, L900.0098, L3890.6102, L100.0100, L501.9985, L3890.6301, L3890.6006, L509.4006 #### [facility] [address] [place], [address] (725 RBC (Bld) [#/Vol] 4.63 10*6/uL Normal 4.2-5.4 [facility] Comment on above: Performed By: #### L 509.8002, BTS, L900.0098, L3890.6102, L100.0100, L501.9985, L3890.6301, L3890.6006, L509.4006 #### [facility] [address] [place], [address] ( RDW SD 41.1 fl Normal 35.1-43.9 [facility] Comment on above: Performed By: #### L 509.8002, BTS, L900.0098, L3890.6102, L100.0100, L501.9985, L3890.6301, L3890.6006, L509.4006 #### [facility] [address] [place], [address] ( WBC (Bld) [#/Vol] 9.8 10*3/uL Normal 4.4-11.0 [facility] Comment on above: Performed By: #### L 509.8002, BTS, L900.0098, L3890.6102, L100.0100, L501.9985, L3890.6301, L3890.6006, L509.4006 #### [facility] [address] [place], [address] Eosinophil percentageOrdered By: Earline Andrade on 04-02-2024 Eosinophils/100 WBC (Bld) 1.3 % 0-5 [facility] Erythrocyte distribution wid th ratioOrdered By: Earline Andrade on 04-02-2024 Erythrocyte distribution width (RBC) [Ratio] 13.6 % 11.6-14.6 [facility] Erythrocyte distribution wid th standard deviationOrdered By: Earline Andrade on 04-02-2024 Erythrocyte distribution width (RBC) [Entitic vol] 41.1 fL 35.1-43.9 [facility] Erythrocyte distribution width (RBC) [Ratio] 41.1 fl 35.1-43.9 [facility] HBV surface Ag Ql (S)Ordered By: Earline Andrade on 04-02-2024 Hepatitis B Surface Antigen Non-Reactive Nonreactive [facility] Comment on above: Reactive: Presumptiv e evidence of HBV. Repeatedly reactive samples must be confirmed using a neutralization test ([employer] HBsAg Confirmatory Test)Non-Reactive: HBsAg not detected; does not exclude the possibility of exposure to HBV Hematocrit Auto (Bld) [Volum e fraction]Ordered By: Earline Andrade on 04-02-2024 Hematocrit (Bld) [Volume fraction] 38.5 % 37-47 [facility] Hemoglobin A1c percentageOrd ered By: Earline Andrade on 04-02-2024 HbA1c (Bld) [Mass fraction] 5.2 % Low >5.7 [facility] Hemoglobin measurementOrdere d By: Earline Andrade on 04-02-2024 Hemoglobin (Bld) [Mass/Vol] 13.0 g/dL 12.0-15.0 [facility] Hepatitis C antibodyOrdered By: Earline Andrade on 04-02-2024 Hepatitis C Antibody Non-Reactive Nonreactive [facility] Comment on above: Reactive: Presumptiv e evidence of antibodies to HCV. Follow CDC recommendations for supplemental testing.Non-Reactive: Antibodies to HCV were not detected; does not exclude the possibility of exposure to HCVReactive Results are presumptive evidence of antibodies to HCV. Follow CDC recommendations for supplemental testing.Order confirmation testing: HCV Quant by PCR testing - HCVPCR #[id number] Non Reactive: < 0.8 Equivocal: >/= 0.8 to < 1.0 Reactive: >/= 1.0The CDC requires that a reactive/equivocal HCV antibody result be sent out for confirmation. HCV Quant by PCR testing. Immature granulocytes/100 WB C Auto (Bld)Ordered By: Earline Andrade on 04-02-2024 Immature granulocytes/100 WBC (Bld) 0.300 % 0.0-0.9 [facility] Comment on above: IG% - Immature Granu locytes (promyelocytes, myelocytes and metamyelocytes) > 1% indicates that a LEFT SHIFT is Present. L3890.6006on 04-02-2024 HIV Non-Reactive Normal Nonreactive [facility] Comment on above: Result Comment: Non- Reactive Reactive Repeatedly reactive samples must be confirmed according to CDC recommended confirmatory algorithms. The subresults for either HIVAG or AHIV can be used as an aid in the selection of the confirmation algorithm for reactive samples. Send out specimens with Reactive results to [facility] for confirmation. Order the HIV antibody detection and differentiation: lc#[id number] Performed By: #### L 509.8002, L100.0100, L3890.6006, L501.0250 #### [facility] [place], [address] L3890.6301on 04-02-2024 Hepatitis C Ab Non-Reactive Normal Nonreactive [facility] Comment on above: Result Comment: Reac tive: Presumptive evidence of antibodies to HCV. Follow CDC recommendations for supplemental testing. Non-Reactive: Antibodies to HCV were not detected; does not exclude the possibility of exposure to HCV Reactive Results are presumptive evidence of antibodies to HCV. Follow CDC recommendations for supplemental testing. Order confirmation testing: HCV Quant by PCR testing - HCVPCR #[id number] Non Reactive: < 0.8 Equivocal: >/= 0.8 to < 1.0 Reactive: >/= 1.0 The CDC requires that a reactive/equivocal HCV antibody result be sent out for confirmation. HCV Quant by PCR testing. Performed By: #### L 509.8002, L100.0100, L3890.6006, L501.0250 #### [facility] [address] [place], [address] L509.4006on 04-02-2024 Rubella IgG REAC Normal Nonreactive [facility] Comment on above: Result Comment: Anti body Result: Interpretation Non-Reactive: Non-Immune Reactive: Immune The following results were obtained with the [employer]ys Rubella IgG assay. Results from assays of other manufacturers cannot be used interchangeably. Performed By: #### L 509.8002, BTS, L900.0098, L3890.6102, L100.0100, L501.9985, L3890.6301, L3890.6006, L509.4006 #### [facility] [address] [facility] [place], [address] L509.8002on 04-02-2024 Syphilis Abs Non-Reactive Normal Nonreactive [facility] Comment on above: Performed By: #### L 509.8002, L100.0100, L3890.6006, L501.0250 #### [facility] [address] [facility] [place], [address] Laboratory - Chemistry and C hemistry - challengeOrdered By: Maris Aragon on 04-02-2024 Glucose Ql (U) Negative [facility] - Microbiology an d Antimicrobial susceptibilityOrdered By: Earline Andrade on 04-02-2024 HBV surface Ag Ql (S) Non-Reactive Nonreactive [facility] Comment on above: Reactive: Presumptiv e evidence of HBV. Repeatedly reactive samples must be confirmed using a neutralization test ([employer]ys HBsAg Confirmatory Test)Non-Reactive: HBsAg not detected; does not exclude the possibility of exposure to HBV Laboratory - UrinalysisOrder ed By: Maris Aragon on 04-02-2024 Protein Ql (U) Negative [facility] Lymphocytes Auto (Unsp spec) [#/Vol]Ordered By: Earline Andrade on 04-02-2024 Lymphocytes (Bld) [#/Vol] 2.43 10*3/uL 0.83-4.51 [facility] Lymphocytes/100 WBC Auto (Un sp spec)Ordered By: Earline Andrade on 04-02-2024 Lymphocytes/100 WBC (Bld) 24.8 % 19-41 [facility] MCV (mean corpuscular volume ) determinationOrdered By: Earline Andrade on 04-02-2024 MCV (RBC) [Entitic vol] 83.2 fL 81-99 [facility] Mean corpuscular hemoglobin (MCH) determinationOrdered By: Earline Andrade on 04-02-2024 MCH (RBC) [Entitic mass] 28.1 pg 27.0-32.0 [facility] Mean corpuscular hemoglobin concentration (MCHC) determinationOrdered By: Earline Andrade on 04-02-2024 MCHC (RBC) [Mass/Vol] 33.8 g/dL 32-36 [facility] Mean platelet volume determi nationOrdered By: Earline Andrade on 04-02-2024 Platelet mean volume (Bld) [Entitic vol] 11.4 fL 6.2-12.0 [facility] Miscellaneous procedureOrder ed By: Earline Andrade on 04-02-2024 Miscellaneous Test Comment SEE SCANNED REPORT [facility] Monocyte percentageOrdered B y: Earline Andrade on 04-02-2024 Monocytes/100 WBC (Bld) 5.2 % 0-10 [facility] NATERAon 04-02-2024 NATURA SEE SCANNED REPORT Normal [facility] Comment on above: Performed By: #### L 509.8002, BTS, L900.0098, L3890.6102, L100.0100, L501.9985, L3890.6301, L3890.6006, L509.4006 #### [facility] [address] [place], [address] Neutrophil percentageOrdered By: Earline Andrade on 04-02-2024 Neutrophils/100 WBC (Bld) 68.1 % 47-70 [facility] No Panel InformationOrdered By: Earline Andrade on 04-02-2024 HIV (1&2) Antibody Non-Reactive Nonreactive [facility] Comment on above: Non-ReactiveReactive Repeatedly reactive samples must be confirmed according to CDC recommended confirmatory algorithms. The subresults for either HIVAG or AHIV can be used as an aid in the selection of the confirmation algorithm for reactive samples.Send out specimens with Reactive results to [facility] for confirmation.Order the HIV antibody detection and differentiation: #[id number] Rubella IgG Antibody REAC Nonreactive [facility] Comment on above: Antibody Result: Int erpretationNon-Reactive: Non-ImmuneReactive: ImmuneThe following results were obtained with the [employer]ys Rubella IgG assay. Results from assays of other manufacturers cannot be used interchangeably. Syphilis Total Antibody Non-Reactive Nonreactiv e [facility] Nucleated red blood cell per centageOrdered By: Earline Andrade on 04-02-2024 Nucleated RBC/100 WBC (Bld) [Ratio] 0 % 0-5 [facility] Fiber Analyst Office Visit Reporton 04-02-2024 Fiber Analyst Office Visit Report [facility] [address], [address] [place] [address] OFFICE VISIT Date of Service: 04/02/24 MR#: [id number] Acct: [id number] Name: SAMEER CABALLERO Rep #: [id number] : 1990 Provider: Dr. Maris yang MD Age/Sex: 33/F [place] [facility] [place]: Signed Intake Vital Signs 12/25/23 07:48 03/01/24 14:33 04/02/24 09:19 Height 5 ft 5 in 5 ft 5 in 5 ft 5 in Weight: 265 lb 8 oz BMI 44.1 BP 133/86 H Intake Visit Reasons: 14wk OB Hematology Nurse Educator Required: No Is patient in pain?: No Feel stressed/tense/nervou s/anxious/difficulty sleeping: not at all Allergies No Known Allergies Allergy (Verified 04/02/24 09:20) Medications ???Medication ???Instructions ???Recorded ???Confirmed ???Type multivit-min no.71-iron fum 28 cap PO 02/23/24 04/02/24 History mg-folate no.1 1 mg-dha 300 mg capsule (PNV-Revere) Last Menstrual Period: 12/21/23 Zika: Zika virus screening: Negative : No Have you fallen in the past year?: No PFSH PFSH Medical History Seasonal allergies History of frequent headaches Surgical History [address] teeth extracted Family History Grandmother CVA (cerebral vascular accident) Maternal Diabetes Maternal Grandfather Myocardial infarction, Onset Age: 54 Maternal Social History adopted: No household members: spouse housing: house number of children: 0 current occupational status: employed current occupation: [employer] current occupational exposures/hazards: No pets and animals: Yes pets and animals: dog(s) history of recent travel: Yes ([facility] in January) out of state: Yes out of country: No sexually active: Yes Smoking Status: Never smoker alcohol intake: current alcohol intake frequency: other details: once a month- not while substance use type: does not use well-balanced diet: about half the time caffeine: No eating out: 1-3 times/week during the past year weight has: remained stable what type of physical activity do you participate in: none ganesh/jewish: Latter Day seatbelt use: always do you feel safe at home: Yes additional social history: - Mc - hankins History 1 Elective abortions Hx Para 0 Spontaneous abortions Hx # Term Pregnancies Ectopic pregnancies Hx # Pregnancies Multiple births # of living children HPI 14wk OB Details: SAMEER CABALLERO is a 33 year old who presents for routine OB visit. OB Visit LORY Calculator Estimated Delivery Date Method Current WG Current Estimate 09/26/24 LMP (Certain) 14w 5d Other Estimates 09/25/24 Ultrasound #1 14w 6d Expected Delivery Route/Plan Labor Preferences- CB/BF classes: [] labor support person: [] labor intervention preferences: [] pain management options preferred: [] cut cord/dad catch: [] : [] PP control planned: [] discussed possible routes of delivery and associated risks: [] special requests: [] Specific Issue/Plans Covid status: [] Flu vaccine: [] Tdap vaccine: [] Rhogam: [] LARC form signed: [] Problem list reviewed and updated with the most current plan of care details and appropriate orders placed. Relevant counseling for the gestational age provided. Continue routine care and follow up unless otherwise noted in visit notes/problem list details Initial Weight: 267 lb Date -???-???-???-???-???- ???-???-???-???-???-? ??-???- EGA Weight BP Urine Prot -???-???-???-???-???- ???-???-???-???-???-? ??-???- Glucose FHR FuHt Pres Dilation -???-???-???-???-???- ???-???-???-???-???-? ??-???- Effaced St Visit Note 03/01/24 -???-???-???-???-???- ???-???-???-???-???-? ??-???- 10w 1d 267 lb 2 oz (+2 oz) 137/83 -???-???-???-???-???- ???-???-???-???-???-? ??-???- 172 -???-???-???-???-???- ???-???-???-???-???-? ??-???- KW- CRL cons with dates. accepts NIPT. Labs at next appt 04/02/24 -???-???-???-???-???- ???-???-???-???-???-? ??-???- 14w 5d 265 lb 8 oz (-1 lb 8 oz) 133/86 Negative -???-???-???-???-???- ???-???-???-???-???-? ??-???- Negative 155 -???-???-???-???-???- ???-???-???-???-???-? ??-???- Sm- no vb cr amping labs today ACOG First Trimester First Trimester: Desire for , Alcohol, Tobacco Cessation, Illicit/Recreational Drug/Substance Use, Intimate Partner Violence, Barriers to care, Unstable Housing, Communication Barriers, Environmental/Work Hazards, Anticipated Course of Care, Use of Any medications, Sexual activity, Exercise, Dental Care, Sauna/Hot tub use, Seat Belt use, Childb (more content not included)... Normal [facility] Platelet countOrdered By: Ishan Andrade on 04-02-2024 Platelets (Bld) [#/Vol] 269 10*3/uL 150-450 [facility] RBC Auto (Bld) [#/Vol]Ordere d By: Earline Andrade on 04-02-2024 RBC (Bld) [#/Vol] 4.63 10*6/uL 4.2-5.4 [facility] Type AND Screenon 04-02-2024 Ab SCREEN GEL Negative Normal [facility] Comment on above: Order Comment: PN Performed By: #### L 509.8002, BTS, L900.0098, L3890.6102, L100.0100, L501.9985, L3890.6301, L3890.6006, L509.4006 #### [facility] [address] [place], [place], [id number] White blood cell (WBC) count Ordered By: Earline Andrade on 04-02-2024 WBC (Bld) [#/Vol] 9.8 10*3/uL 4.4-11.0 [facility] Chlamydia/GC MICAH aptimaon CHLAMY,NUC ACID Negative Normal Negative [facility] Comment on above: Performed By: #### L 509.8002, L100.0100, L3890.6006, L501.0250 #### [facility] [address] [place], [place], [address] GC BY NUC ACID Negative Normal Negative [facility] Comment on above: Result Comment: Perf ormed at: =G - [facility] [address] [id number] Acquisition Analyst: Lori Coppola MD, Phone: [phone] Performed By: #### L 509.8002, L100.0100, L3890.6006, L501.0250 #### [facility] [address] [place], [address] Urine Cultureon 03-02-2024 URC Culture exhibits no growth. Normal [facility] Comment on above: Performed By: #### L 509.8002, L100.0100, L3890.6006, L501.0250 #### [facility] [address] [place], [address] C. trachomatis rRNA MICAH+prob e Ql (Unsp spec)Ordered By: Earline Andrade on 03-01-2024 Chlamydia DNA (MICAH) Negative Negative [facility] Chlamydia trachomatis rRNA d etection by probe and target amplification methodOrdered By: Earline Andrade on 03-01-2024 C. trachomatis rRNA MICAH+probe Ql (Unsp spec) Negative Negative [facility] Neisseria gonorrhoeae nuclei c acid detection by amplified probe techniqueOrdered By: Earline Andrade on 03-01-2024 N. gonorrhoeae DNA MICAH+probe Ql (Unsp spec) Negative Negative [facility] Comment on above: Performed at: =G - [facility] [address] [id number] Director: Lori Coppola MD, Phone: [phone] Fiber Analyst Office Visit Reporton 03-01-2024 Fiber Analyst Office Visit Report [facility], [address] [place] [address] OFFICE VISIT Date of Service: 03/01/24 MR#: [id number] Acct: [id number] Name: SAMEER CABALLERO Rep #: [id number] : 1990 Provider: MARIO Fournier ams Age/Sex: 33/F [place] [facility] [place] Status: Signed Intake Vital Signs 12/25/23 07:48 03/01/24 14:33 Height 5 ft 5 in 5 ft 5 in Weight: 268 lb 267 lb 2 oz BMI 44.6 44.4 BP 132/85 H 137/83 H 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, LMP 12/20, LORY 09/26/24 Hematology Nurse Educator Required: No Is patient in pain?: No Allergies No Known Allergies Allergy (Verified 03/01/24 14:31) Medications ???Medication ???Instructions ???Recorded ???Confirmed ???Type multivit-min no.71-iron fum 28 cap PO 02/23/24 02/23/24 History mg-folate no.1 1 mg-dha 300 mg capsule (PNV-Revere) Last Menstrual Period: 12/21/23 Zika: Zika virus screening: Negative : Yes Have you fallen in the past year?: No PFSH PFSH Medical History Seasonal allergies History of frequent headaches Surgical History [address] teeth extracted Family History Grandmother CVA (cerebral vascular accident) Maternal Diabetes Maternal Grandfather Myocardial infarction, Onset Age: 54 Maternal Social History adopted: No household members: spouse housing: house number of children: 0 service: No current occupational status: employed current occupation: [employer] current occupational exposures/hazards: No pets and animals: Yes pets and animals: dog(s) history of recent travel: [place] out of state: Yes out of country: No sexually active: Yes Smoking Status: Never smoker alcohol intake: current alcohol intake frequency: other details: once a month- not while substance use type: does not use well-balanced diet: about half the time caffeine: No eating out: 1-3 times/week during the past year weight has: remained stable what type of physical activity do you participate in: none ganesh/jewish: Latter Day seatbelt use: always do you feel safe at home: Yes additional social history: - Mc - hankins History 1 Elective abortions Hx Para 0 Spontaneous abortions Hx # Term Pregnancies Ectopic pregnancies Hx # Pregnancies Multiple births # of living children HPI New OB, LMP 12/20, LORY 09/26/24 Details: SAMEER CABALLERO is a 33 year old who presents for New OB visit. OB Visit LORY Calculator Estimated Delivery Date Method Current WG Current Estimate 09/26/24 LMP (Certain) 10w 1d Other Estimates 09/25/24 Ultrasound #1 10w 2d Comments: HIV: Urine Culture: Sequential Screen: NIPT Screen: Estimated Due Date: 09/26/24 Expected Delivery Route/Plan Labor Preferences- CB/BF classes: [] labor support person: [] labor intervention preferences: [] pain management options preferred: [] cut cord/dad catch: [] : [] PP control planned: [] discussed possible routes of delivery and associated risks: [] special requests: [] Specific Issue/Plans Covid status: [] Flu vaccine: [] Tdap vaccine: [] Rhogam: [] LARC form signed: [] Problem list reviewed and updated with the most current plan of care details and appropriate orders placed. Relevant counseling for the gestational age provided. Continue routine care and follow up unless otherwise noted in visit notes/problem list details Initial Weight: 267 lb Date -???-???-???-???-???- ???-???-???-???-???-? ??-???- EGA Weight BP Urine Prot -???-???-???-???-???- ???-???-???-???-???-? ??-???- Glucose FHR FuHt Pres Dilation -???-???-???-???-???- ???-???-???-???-???-? ??-???- Effaced St Visit Note 03/01/24 -???-???-???-???-???- ???-???-???-???-???-? ??-???- 10w 1d 267 lb 2 oz (+2 oz) 137/83 -???-???-???-???-???- ???-???-???-???-???-? ??-???- 172 -???-???-???-???-???- ???-???-???-???-???-? ??-???- KW- CRL cons with dates. accepts NIPT. Labs at next appt Menstrual History Last Menstrual Period: 12/21/23 Reported LMP: definite Normal amount/duration: Yes Frequency in days: 28 On hormonal BC at conception: No hCG+: 01/16/24 Antepartum Record Genetic Screening: Congenital Heart Defect: Other, Neural Tube Defect: Other, Hemoglobinopathy Or Carrier: Other, Cystic Fibrosis: Other, Chromosome Abnormality: Other, Jayesh-Sachs: Other, Hemophilia: Other, Intellectual Disability/Autism: Other, Recurrent Loss/Stillbirth: Other, Other Structural Defect: Other, Other Genetic Disease: (more content not included)... Normal [facility] Urine cultureOrdered By: Riccardo Andrade on 03-01-2024 Bacteria identified Cx Nom (U) Culture exhibits no growth. [facility] PAP IG HPV APTIMA 16/18,45on 01-01-2024 ADEQ Comment Normal . [facility] Comment on above: Order Comment: Speci men Comment: [id number] Specimen Comment: Source.............Cervix Specimen Comment: No. of containers..01 ThinPrep Vial Result Comment: Sati sfactory for evaluation. Endocervical and/or squamous metaplastic cells (endocervical component) are present. Performed By: #### L 7400.0280 #### [facility] [address] [place], [address] COMM . Normal . [facility] Comment on above: Order Comment: Speci men Comment: [id number] Specimen Comment: Source.............Cervix Specimen Comment: No. of containers..01 ThinPrep Vial Performed By: #### L 7400.0280 #### [facility] [address] [place], [place], [address] COMMENT Comment Normal . [facility] Comment on above: Order Comment: Speci men Comment: [id number] Specimen Comment: Source.............Cervix Specimen Comment: No. of containers..01 ThinPrep Vial Result Comment: This liquid based ThinPrep(R) pap test was screened with the use of an image guided system. Performed By: #### L 7400.0280 #### [facility] [address] [place], [place], [id number] DIAG Comment Normal . [facility] Comment on above: Order Comment: Speci men Comment: [id number] Specimen Comment: Source.............Cervix Specimen Comment: No. of containers..01 ThinPrep Vial Result Comment: NEGA TIVE FOR INTRAEPITHELIAL LESION OR MALIGNANCY. Performed By: #### L 7400.0280 #### [facility] [address] [place], [place], [id number] HPV APTIMA, HR Positive Abnormal Negative [facility] Comment on above: Order Comment: Speci men Comment: [id number] Specimen Comment: Source.............Cervix Specimen Comment: No. of containers..01 ThinPrep Vial Result Comment: This nucleic acid amplification test detects fourteen high- risk HPV types (16,18,31,33,35,39,45,51,52,56,58,59,66,68) without differentiation. Performed By: #### L 7400.0280 #### [facility] [address] [place], [address] HPV Lizette 18,45 Positive Abnormal Negative [facility] Comment on above: Order Comment: Speci men Comment: [id number] Specimen Comment: Source.............Cervix Specimen Comment: No. of containers..01 ThinPrep Vial Result Comment: Perf ormed at: [facility] [address] [place], [place] [id number] Acquisition Analyst: Alexandro Burrell PhD, Phone: [phone] Performed at: [address] [id number] Acquisition Analyst: Lori Coppola MD, Phone: [phone] Performed at: =[address] [id number] Acquisition Analyst: Lori Coppola MD, Phone: [phone] Performed By: #### L 7400.0280 #### [facility] [address] [place], [address] HPV Lizette Rfx Comment Normal . [facility] Comment on above: Order Comment: Speci men Comment: [id number] Specimen Comment: Source.............Cervix Specimen Comment: No. of containers..01 ThinPrep Vial Result Comment: Yecenia chávez, see HPV Genotype results. Performed By: #### L 7400.0280 #### [facility] [address] [place], [address] HPV Genotype 16 Negative Normal Negative [facility] Comment on above: Order Comment: Speci men Comment: [id number] Specimen Comment: Source.............Cervix Specimen Comment: No. of containers..01 ThinPrep Vial Performed By: #### L 7400.0280 #### [facility] [address] [place], [address] PAPSMR Comment Normal . [facility] Comment on above: Order Comment: Speci men Comment: [id number] Specimen Comment: Source.............Cervix Specimen Comment: No. of containers..01 ThinPrep Vial Result Comment: The Pap smear is a screening test designed to aid in the detection of premalignant and malignant conditions of the uterine cervix. It is not a diagnostic procedure and should not be used as the sole means of detecting cervical cancer. Both false-positive and false-negative reports do occur. Performed By: #### L 7400.0280 #### [facility] [address] [place], [place], [address] PERFORM Comment Normal . [facility] Comment on above: Order Comment: Speci men Comment: [id number] Specimen Comment: Source.............Cervix Specimen Comment: No. of containers..01 ThinPrep Vial Result Comment: Maritza Silva, Point Of Care Technician (ASCP) Performed By: #### Rajesh 7400.0280 #### [facility] [address] [place], [place], [id number] Pinion Polisher Cyto stain Nom (C vx/Vag) [ID]Ordered By: Laura Lechuga on 12-25-2023 Pap Smear Performed By Comment . [facility] Comment on above: Cata Silva, Cyto technologist (ASCP) Cytology report Cyto stain D oc (Cvx/Vag)Ordered By: Laura Lechuga on 12-25-2023 Thin Prep Pap Smear Comment . [facility] Comment on above: The Pap smear is a s creening test designed to aid in thedetection of premalignant and malignant conditions of theuterine cervix. It is not a diagnostic procedure andshould not be used as the sole means of detecting cervicalcancer. Both false-positive and false-negative reports dooccur. Cytology report Cyto stain.t hin prep Doc (Cvx/Vag)Ordered By: Laura Lechuga on 12-25-2023 HPV Genotype Special Info Comment . [facility] Comment on above: Criteria met, see HP V Genotype results. HPV 16 DNA Probe+sig amp Ql (Cvx)Ordered By: Laura Lechuga on 12-25-2023 HPV Type 16 Comment Negative Negative [facility] HPV 16+18+31+33+35+39+45+51+ 52+56+58+59+66+68 DNA Probe+sig amp Ql (Cvx)Ordered By: Laura Lechuga on 12-25-2023 Human Papillomavirus High Risk Positive High Negative [facility] Comment on above: This nucleic acid am plification test detects fourteen high-risk HPV types (16,18,31,33,35,39,45,51,52,56,58,59,66,68)without differentiation. HPV E6+E7 mRNA MICAH+probe Ql (Cvx)Ordered By: Laura Lechuga on 12-25-2023 HPV Type 18 Comment Positive High Negative [facility] Comment on above: Performed at: [facility] [id number] Director: Alexandro Burrell PhD, Phone: [phone] at: - [facility] [id number] Director: Lori Coppola MD, Phone: [phone] at: = - [facility] [id number] Director: Lori Coppola MD, Phone: [phone] Image-guided ThinPrep PapOrd ered By: Laura Lechuga on 12-25-2023 Pap Smear Note Comment . [facility] Comment on above: This liquid based Th inPrep(R) pap test was screened withthe use of an image guided system. Image-guided liquid-based Pa pOrdered By: Laura Lechuga on 12-25-2023 Pap Smear Diagnosis Comment . [facility] Comment on above: NEGATIVE FOR INTRAEP ITHELIAL LESION OR MALIGNANCY. Fiber Analyst Office Visit Reporton 12-25-2023 Fiber Analyst Office Visit Report [facility] [address], [address] [place] [address] OFFICE VISIT Date of Service: 12/25/23 MR#: [id number] Acct: [id number] Name: SAMEER CABALLERO Rep #: [id number] : 1990 Provider: NERY De La Cruz Age/Sex: 33/F Location: 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 Is patient in pain?: No Allergies No Known Allergies Allergy (Unverified 12/25/23 07:49) Medications ???Medication ???Instructions ???Recorded ???Confirmed ???Type NK 12/25/23 12/25/23 History Is last menstrual period known: Yes Last Menstrual Period: 12/21/23 Post menopausal: No Patient : No : No Do you think of yourself as: straight/heterosexual Current gender identity: female Control Method: none PFSH Medical History (Updated 12/25/23 @ 07:55 by Tiffanie Mckeon) Seasonal allergies History of frequent headaches Family History (Updated 12/25/23 @ 07:56 by Tiffanie Mckeon) Other CVA (cerebral vascular accident) Diabetes Heart disease Social History adopted: No household members: spouse housing: house number of children: 0 current occupational status: employed current occupation: [employer] current occupational exposures/hazards: No pets and animals: Yes pets and animals: dog(s) history of recent travel: No sexually active: Yes Smoking Status: Never smoker alcohol intake: current alcohol intake frequency: other details: once a month substance use type: does not use well-balanced diet: daily or most days caffeine: Yes Type: carbonated beverages Number of servings: 1 and coffee Number of servings: 1 eating out: 1-3 times/week what type of physical activity do you participate in: none ganesh/jewish: Latter Day seatbelt use: always do you feel safe at home: Yes additional social history: - Mc - hankins HPI Encounter for routine gynecological examination Details: SAMEER CABALLERO is a 33 year old who presents for annual exam. 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 She is unsure where this was at. She reports no issues or concerns today. Last PAP: 2018 History of abnormal PAP: None Last mammogram: None History of abnormal mammogram: None Colon cancer screening: None Other preventative health care screenings: Primary Care Doctor: none. Female Reproductive History Last Menstrual Period: 12/21/23 Cycle Length: 21-35 Bleeding Duration: 5 Questions: metorrhagia: No, sexually active: Yes, dyspareunia: No and PCB: No ROS Const Constitutional: Denies chills, fatigue, fever(s), headache(s) or weight loss Eyes Eyes: Denies change in vision ENT ENT: Denies dizziness Resp Resp: Denies cough GI GI: Denies abdominal pain, constipation or nausea : Denies difficulty voiding, dysuria, hematuria, nipple discharge, pelvic pain, prolapse symptoms, urinary incontinence, vaginal discharge, vaginal dryness, vaginal odor or vaginal pruritus Skin Skin/Breast: Denies alopecia, rash, breast mass, breast pain, breast skin changes or nipple discharge Neuro Neuro: Denies dizziness Psych Psych: Denies anxiety or depression Endo Endo: Denies cold intolerance, excessive sweating or heat intolerance Exam Const General: cooperative, healthy appearing, comfortable, no acute distress, well groomed and well hydrated Nutritional Appearance: well nourished Orientation: alert, awake and oriented x3 HENMT Head: normal to inspection and normocephalic Ears: hearing grossly normal bilaterally and external ears normal Nose: external nose normal Face and sinus: normal facial exam Eyes General: appearance normal, both eyes and all related structures Neck Neck: normal visual inspection, full ROM and no lymphadenopathy Chest Chest palpation inspection: normal inspection of the chest Breast inspection: normal inspection of the breasts and normal inspection of the axillae Breast palpation: normal palpation of the breasts, normal palpation of the axillae and no axillary lymphadenopathy Resp Effort Inspection: normal respiratory effort, able to speak in complete sentences and symmetric chest movement GI Inspection: normal to inspection Palpation: soft and no hepatosplenomegaly General: bladder normal to palpation External Female Exam: normal external appearance and normal appearance of the urethra Urethra: normal appearance of the urethra Speculum Exam - Vagina: normal appearance of the vagina, normal vaginal discharge, no lesions and nontender Speculum Exam - Cervix: normal appearance of the cervix (menses present), no lesions and no masses Bimanual Exam- Vagina Uterus: normal bimanual exam, uterine size normal (more content not included)... Normal [facility] Service comment (Unsp spec) [Interp]Ordered By: Laura Lechuga on 12-25-2023 Pap Smear Comment (3) . . [facility] Vital Signs Date Time Vital Sign Value Performing Clinician Alber olvera 08-19-2024 08:37-0400 Body height 165.1 cm No Primary Care Physician [facility] 08-19-2024 08:37-0400 Body mass index (BMI) [Ratio] 49.6 kg/m2 No Primary Care Physician [facility] 08-19-2024 08:37-0400 Body weight 135.34 kg No Primary Care Physician [facility] 08-19-2024 08:37-0400 Diastolic blood pressure 77 mm[Hg] No Primary Care Physician [facility] 08-19-2024 08:37-0400 Systolic blood pressure 126 mm[Hg] No Primary Care Physician [facility] 08-12-2024 08:11-0400 Body mass index (BMI) [Ratio] 49.4 kg/m2 No Primary Care Physician [facility] 08-12-2024 08:11-0400 Body weight 134.88 kg No Primary Care Physician [facility] 08-12-2024 08:11-0400 Diastolic blood pressure 84 mm[Hg] No Primary Care Physician [facility] 08-12-2024 08:11-0400 Systolic blood pressure 130 mm[Hg] No Primary Care Physician [facility] 07-30-2024 08:28-0400 Body height 165.1 cm No Primary Care Physician [facility] 07-30-2024 08:22-0400 Body mass index (BMI) [Ratio] 48.6 kg/m2 No Primary Care Physician [facility] 07-30-2024 08:22-0400 Body weight 132.44 kg No Primary Care Physician [facility] 07-30-2024 08:22-0400 Diastolic blood pressure 78 mm[Hg] No Primary Care Physician [facility] 07-30-2024 08:22-0400 Systolic blood pressure 118 mm[Hg] No Primary Care Physician [facility] 07-16-2024 15:29-0400 Body height 165.1 cm No Primary Care Physician [facility] 07-16-2024 15:29-0400 Body mass index (BMI) [Ratio] 49.1 kg/m2 No Primary Care Physician [facility] 07-16-2024 15:29-0400 Body weight 133.92 kg No Primary Care Physician [facility] 07-16-2024 15:29-0400 Diastolic blood pressure 74 mm[Hg] No Primary Care Physician [facility] 07-16-2024 15:29-0400 Systolic blood pressure 120 mm[Hg] No Primary Care Physician [facility] 06-24-2024 15:33-0400 Body height 165.1 cm No Primary Care Physician [facility] 06-24-2024 15:31-0400 Body mass index (BMI) [Ratio] 48.4 kg/m2 No Primary Care Physician [facility] 06-24-2024 15:31-0400 Body weight 132.1 kg No Primary Care Physician [facility] 06-24-2024 15:31-0400 Diastolic blood pressure 83 mm[Hg] No Primary Care Physician [facility] 06-24-2024 15:31-0400 Systolic blood pressure 127 mm[Hg] No Primary Care Physician [facility] 05-29-2024 07:25-0400 Body mass index (BMI) [Ratio] 47.5 kg/m2 No Primary Care Physician [facility] 05-29-2024 07:25-0400 Body weight 129.44 kg No Primary Care Physician [facility] 05-29-2024 07:25-0400 Diastolic blood pressure 80 mm[Hg] No Primary Care Physician [facility] 05-29-2024 07:25-0400 Systolic blood pressure 120 mm[Hg] No Primary Care Physician [facility] 05-02-2024 08:23-0400 Body mass index (BMI) [Ratio] 46.3 kg/m2 No Primary Care Physician [facility] 05-02-2024 08:23-0400 Body weight 126.15 kg No Primary Care Physician [facility] 05-02-2024 08:23-0400 Diastolic blood pressure 84 mm[Hg] No Primary Care Physician [facility] 05-02-2024 08:23-0400 Systolic blood pressure 126 mm[Hg] No Primary Care Physician [facility] 04-02-2024 09:19-0500 Body height 165.1 cm Laura GABRIEL Work Phone: [facility] 04-02-2024 09:19-0500 Body mass index (BMI) [Ratio] 44.1 kg/m2 Laura Ramirezman [employer] IN[employer]ATION [employer] Work Phone: [facility] 04-02-2024 09:19-0500 Body weight 120.42 kg Laura Jamesman [employer]ATION [employer] Work Phone: [facility] 04-02-2024 09:19-0500 Diastolic blood pressure 86 mm[Hg] Laura Ramirezman [employer] IN[employer]ATION [employer] Work Phone: [facility] 04-02-2024 09:19-0500 Systolic blood pressure 133 mm[Hg] Laura Ramirezman [employer]ATION [employer] Work Phone: [facility] 03-01-2024 14:33-0500 Body mass index (BMI) [Ratio] 44.4 kg/m2 Laura Ramirezman [employer]ATION [employer] Work Phone: [facility] 03-01-2024 14:33-0500 Body weight 121.16 kg Laura Ramirezman [employer] IN[employer]ATION [employer] SERVIC[employer] Work Phone: [facility] 03-01-2024 14:33-0500 Diastolic blood pressure 83 mm[Hg] Laura Ramirezman [employer]ATION [employer] SERVICER[employer] Work Phone: [facility] 03-01-2024 14:33-0500 Systolic blood pressure 137 mm[Hg] Laura Ramirezman [employer] IN[employer]ATION [employer] SERVICER[employer] Work Phone: [facility] 12-25-2023 07:48-0500 Body mass index (BMI) [Ratio] 44.6 kg/m2 Laura Ramirezman [employer]ATION [employer] Work Phone: [facility] 12-25-2023 07:48-0500 Body weight 121.56 kg Laura Ramirezman [employer]ATION [employer] Work Phone: [facility] 12-25-2023 07:48-0500 Diastolic blood pressure 85 mm[Hg] Laura Ramirezman [employer] IN[employer]ATION [employer] SERV[employer] Work Phone: [facility] 12-25-2023 07:48-0500 Systolic blood pressure 132 mm[Hg] Laura Ramirezman [employer] INST[employer]ATION AND SERVICER[employer]C Work Phone: [facility] Encounters Encounter Date Encounter Type Care Provider Facility Start: 08-21-2024 ambulatory No Primary Car e Physician Facility:[facility] Start: 08-19-2024 End: 08-19-[address] Rhina Sweeney DO -[facility] Work Phone: Start: 08-19-2024 End: 08-19-2024 ambulatory No Primary Care Physician -[facility] Start: 08-12-2024 End: 08-12-[address] Rhina Sweeney DO -[facility] Work Phone: Start: 08-12-2024 End: 08-12-2024 ambulatory No Primary Care Physician Facility:[facility] Start: 07-30-2024 End: 07-30-2024 Patient encounter procedure Shea Rodriguez [employer] IN[employer]ATION [employer] SERVICER-C -[facility] Work Phone: Start: 07-30-2024 End: 07-30-2024 ambulatory No Primary Care Physician [facility] Work Phone: Start: 07-22-2024 End: 07-22-2024 ambulatory No Primary Care Physician [facility] Work Phone: Start: 07-22-2024 End: 07-22-2024 Patient encounter procedure Shea Rodriguez PU[employer] INSTALLATION AND SERVICER-C -[facility] Work Phone: Start: 07-22-2024 End: 07-22-2024 ambulatory No Primary Care Physician Facility:[facility] Start: 07-16-2024 End: 07-16-2024 Patient encounter procedure Shea Rodriguez [employer] IN[employer]ATION [employer] SERVICER-C -[facility] Work Phone: Start: 07-16-2024 End: 07-16-2024 ambulatory No Primary Care Physician [facility] Work Phone: Start: 07-03-2024 End: 07-03-2024 ambulatory No Primary Care Physician [facility] Work Phone: Start: 07-03-2024 End: 07-03-[address] [facility] Work Phone: Start: 07-03-2024 End: 07-03-2024 ambulatory No Primary Care Physician Facility:[facility] Start: 06-24-2024 End: 06-24-[address] Rhina Sweeney DO -[facility] Work Phone: Start: 06-24-2024 End: 06-24-2024 ambulatory No Primary Care Physician [facility] Work Phone: Start: 06-24-2024 End: 06-24-2024 ambulatory No Primary Care Physician Facility:[facility] Start: 05-29-2024 End: 05-29-2024 Patient encounter procedure Earline Andrade CNM -[facility] Start: 05-29-2024 End: 05-29-2024 ambulatory No Primary Care Physician Facility:[facility] Start: 05-23-2024 End: 05-23-2024 ambulatory MARIS ARAGON [facility] Start: 05-07-2024 End: 05-07-2024 ambulatory MD NO PRIMARY CARE [facility] Start: 05-02-2024 End: 05-02-2024 Patient encounter procedure Shea GABRIEL -[facility] Work Phone: Start: 05-02-2024 End: 05-02-2024 ambulatory No Primary Care Physician Facility:[facility] Start: 04-02-2024 End: 04-02-[address] Maris Aragon MD -[facility] Work Phone: Start: 04-02-2024 End: 04-02-2024 ambulatory Laura GABRIEL Work Phone: [facility] Work Phone: Start: 04-02-2024 End: 04-02-2024 ambulatory No Primary Care Physician Facility:[facility] Start: 03-01-2024 End: 03-01-2024 Patient encounter procedure Earline Andrade CNM -[facility] Work Phone: Start: 03-01-2024 End: 03-01-2024 Patient encounter procedure [facility] Work [facility]: Start: 03-01-2024 End: 03-01-2024 ambulatory No Primary Care Physician Facility:[facility] Start: 03-01-2024 End: 03-01-2024 ambulatory No Primary Care Physician Facility:[facility] Start: 12-25-2023 End: 12-25-2023 Patient encounter procedure Laura GABRIEL -[facility] Work Phone: Start: 12-25-2023 End: 12-25-2023 Patient encounter procedure Laura GABRIEL -[facility] Start: 12-25-2023 End: 12-25-2023 Patient encounter status Laura GABRIEL [facility] Start: 12-25-2023 End: 12-25-2023 ambulatory Laura Lechuga Facility:[facility] Start: 12-25-2023 End: 12-25-2023 ambulatory Laura Lechuga Facility:[facility] Procedures Date Procedure Procedure Detail Performing Clinician Start: 07-22-2024 Ultrasound scan for growth No Primary Care Physician Start: 06-24-2024 Serologic test for syphilis No Primary Care Physician Start: 04-02-2024 Hepatitis C antibody measurement No Primary Care Physician Comment on above: Reactive: Presumptiv e evidence of antibodies to HCV. Follow CDC recommendations for supplemental testing.Non-Reactive: Antibodies to HCV were not detected; does not exclude the possibility of exposure to HCVReactive Results are presumptive evidence of antibodies to HCV. Follow CDC recommendations for supplemental testing.Order confirmation testing: HCV Quant by PCR testing - HCVPCR #[id number] Non Reactive: < 0.8 Equivocal: >/= 0.8 to < 1.0 Reactive: >/= 1.0The CDC requires that a reactive/equivocal HCV antibody result be sent out for confirmation. HCV Quant by PCR testing. Start: 04-02-2024 Procedure No Primary Care Physician Start: 03-01-2024 Urine culture Laura GABRIEL Work Phone: Plan of Treatment Date Care Activity Detail Author Start: 06-24-2024 CBC W Auto Different ial panel - Blood [facility] Start: 06-24-2024 Measurement of gluco se 2 hours after glucose challenge for glucose tolerance test [facility] Start: 06-24-2024 Serologic test for syphilis [facility] Start: 06-24-2024 [facility] Erythrocyte mean cor puscular volume determination [facility] Biophysical pr ofile panel US [facility] Hematocrit [Volume F raction] of Blood [facility] Hemoglobin [Mass/volume] in Blood [facility] Leukocytes [#/volume] in Blood [facility] Mean corpuscular hem oglobin concentration determination [facility] Mean corpuscular hem oglobin determination [facility] Neutrophil count [facility] Neutrophil percent d ifferential count [facility] Platelets [#/volume] in Blood [facility] Red blood cell count [facility] Red cell distributio n width determination [facility] Ultrasound scan for growth [facility] Immunizations Immunization Date Immunization Notes Care Provider [facility] 07-16-2024 tetanus toxoid, redu geneva diphtheria toxoid, and acellular pertussis vaccine, adsorbed No Primary Care Physician [facility] Payers Date Payer Category Payer Self-pay 2023 Unknown [id number] 1990 Unknown [id number] 2.16. [id number] 1990 Unknown [id number] 2.16. [id number] Unknown [id number] 2.16.8 [id number] Unknown [id number] 2.16.8 [id number] Unknown [id number] 2.16.8 40.1.003898.3.579.2.462 Unknown [id number] 2.16.8 40.1.075901.3.579.2.462 Unknown [id number] 2.16.8 40.1.250474.3.579.2.462 Unknown [id number] 2.16.8 40.1.524613.3.579.2.462 Unknown [id number] 2.16.8 40.1.067248.3.579.2.462 Unknown [id number] 2.16.8 40.1.845061.3.579.2.462 Unknown [id number] 2.16.8 40.1.254754.3.579.2.462 Unknown [id number] 2.16.8 40.1.193983.3.579.2.462 Unknown [id number] 2.16.8 40.1.252634.3.579.2.462 Unknown [id number] 2.16.8 40.1.136020.3.579.2.462 Unknown [id number] 2.16.8 40.1.186423.3.579.2.462 Unknown [id number] 2.16.8 40.1.386833.3.579.2.462 Unknown [id number] 2.16.8 40.1.013197.3.579.2.462 Unknown [id number] 2.16.8 40.1.837919.3.579.2.462 Unknown [id number] 2.16.8 [id number] Social History Date Type Detail Facility Start: 02-23-2024 End: 05-02-2024 Tobacco smoking status CAIS Never smoked tobacco (finding) [facility] Start: 04-14-2024 Sex Male (finding) [facility] Start: 1990 Sex Assigned At Female [facility] Gender Identity Identifies as fe male gender (finding) [facility] Sexual Orientation Heterosexual (finding) [facility] Medical Equipment Procedure Code Equipment Code Equipment Origin al Text Equipment Identifier Dates Blood Sugar Diagnostic (Blood Glucose Test) strip Start: 07-03-2024 Lancets misc Start: 07-03-2024 Blood Sugar Diagnostic (Blood Glucose Test) strip Start: 07-03-2024 Lancets misc Start: 07-03-2024 Blood Sugar Diagnostic (Blood Glucose Test) strip Start: 07-03-2024 Lancets misc Start: 07-03-2024 Blood Sugar Diagnostic (Blood Glucose Test) strip Start: 07-03-2024 Lancets misc Start: 07-03-2024 Blood Sugar Diagnostic (Blood Glucose Test) strip Start: 07-03-2024 Lancets misc Start: 07-03-2024 Clinical Notes 12-25-2023 to 07-23-2024 Note Date & Type Note Facility 07-23-2024 Radiology Diagnostic study note [facility] Imaging Services [address] [place], [place] [address] OB Limited With Biometrics MR#: [id number] Acct: [id number] Name: SAMEER CABALLERO Rep #: [id number] : 1990 F 34 From: Armani Jalloh MD PCP: Care Physician,No Primary Status: REG CLI Study:OB Limited With Biometrics Date of Exam : 07/22/24 Exam# [id number] Ordering Dr: 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 DIMENSIONS: Biparietal Diameter: 8.3 cm: 33 weeks and 4 days: 98 percentile./ Head Circumference: 30.4 cm: 33 weeks and 6 days: 93rd percentile/ Abdominal Circumference: 27.4 cm: 31 weeks and 3 days: 72nd percentile/ Femur Length: 6.1 cm: 31 weeks and 6 days: 71st percentile/ ESTIMATED WEIGHT: 1880 g plus/-282 g ESTIMATED WEIGHT PERCENTILE (24+ weeks): 83 ESTIMATED GESTATIONAL AGE: Baseline: 30 weeks and 4 days By Ultrasound: 33 weeks and 0 days ESTIMATED DATE OF DELIVERY: Baseline: September 26, 2024 By Ultrasound: September 09, 2024 BIOPHYSICAL ASSESSMENT: Amniotic Fluid Volume: 5.7 Amniotic Fluid Index: 11.2 (8-24 cm normal range) Cardiac Motion: 152 beats per minute (average) Trunk and Limb Motion: Present. MATERNAL ANATOMY: Adnexa: Neither maternal ovary is successfully identified. US/OB Limited With Biometrics IMPRESSION: Single live intrauterine gestation with a mean gestational age of 33 weeks and 0days. Reading Location: [place] [address] CC: NERY Rodriguez; No Primary Care Physician ~ Dispensing And Measuring Optician: Signed [facility] 06-24-2024 Progress note [facility] 06-24-2024 Progress note Note Date/Time June 24, 2024 3:50pm [facility] [address], [address] [place] [address] OFFICE VISIT Date of Service: 06/24/24 MR#: [id number] Acct: [id number] Name: SAMEER CABALLERO Rep #: [id number] : 1990 Provider: Dr. Madeline Sweeney DO Age/Sex: 34/F [place] [facility] Status: Signed Intake Vital Signs 05/02/24 08:23 05/02/24 08:39 05/29/24 07:31 06/24/24 15:31 06/24/24 15:33 Height 5 ft 5 in 5 ft 5 in 5 ft 5 in 5 ft 5 in 5 ft 5 in Weight: 291 lb 4 oz BMI 48.4 BP 127/83 H Intake Visit Reasons: 27wk ob/glucose Hematology Nurse Educator Required: No Is patient in pain?: No Allergies No Known Allergies Allergy (Verified 06/24/24 15:31) Medications ?Medication ?Instructions ?Recorded ?Confirmed ?Type multivit-min no.71-iron fum 28 cap PO 02/23/24 5 History mg-folate no.1 1 mg-dha 300 mg capsule (PNV-Revere) Last Menstrual Period: 12/21/23 Zika: Zika virus screening: Negative : No PFSH PFSH Medical History Seasonal allergies History of frequent headaches Surgical History [address] teeth extracted Family History Grandmother CVA (cerebral vascular accident) Maternal Diabetes Maternal Grandfather Myocardial infarction, Onset Age: 54 Maternal Social History adopted: No household members: spouse housing: house number of children: 0 current occupational status: employed current occupation: [employer] current occupational exposures/hazards: No pets and animals: Yes pets and animals: dog(s) history of recent travel: Yes ([place] & [place] in January) out of state: Yes out of country: No sexually active: Yes Smoking Status: Never smoker alcohol intake: current alcohol intake frequency: other details: once a month- not while substance use type: does not use well-balanced diet: about half the time caffeine: No eating out: 1-3 times/week during the past year weight has: remained stable what type of physical activity do you participate in: none ganesh/jewish: Latter Day seatbelt use: always do you feel safe at home: Yes additional social history: - Mc - hankins History 1 Elective abortions Hx Para 0 Spontaneous abortions Hx # Term Pregnancies Ectopic pregnancies Hx # Pregnancies Multiple births # of living children HPI 27wk ob/glucose Details: SAMEER CABALLERO is a 34 year old who presents for routine OB visit. OB Visit LORY Calculator Estimated Delivery Date Method Current WG Current Estimate 09/26/24 LMP (Certain) 26w 4d Other Estimates 09/25/24 Ultrasound #1 26w 5d Expected Delivery Route/Plan Labor Preferences- CB/BF classes: [] labor support person: [] labor intervention preferences: [] pain management options preferred: [] cut cord/dad catch: [] : [] PP control planned: [] discussed possible routes of delivery and associated risks: [] special requests: [] Specific Issue/Plans Covid status: [] Flu vaccine: [] Tdap vaccine: [] Rhogam: [] LARC form signed: [] Problem list reviewed and updated with the most current plan of care details and appropriate orders placed. Relevant counseling for the gestational age provided. Continue routine care and follow up unless otherwise noted in visit notes/problem list details Initial Weight: 267 lb Date -?-?-?-?-?-?-?-?-?-?-?-?- EGA Weight BP Urine Prot -?-?-?-?-?-?-?-?-?-?-?-?- Glucose FHR FuHt Pres Dilation -?-?-?-?-?-?-?-?-?-?-?-?- Effaced St Visit Note 03/01/24 -?-?-?-?-?-?-?-?-?-?-?-?- 10w 1d 267 lb 2 oz (+2 oz) 137/83 -?-?-?-?-?-?-?-?-?-?-?-?- 172 -?-?-?-?-?-?-?-?-?-?-?-?- KW- CRL cons wit h dates. accepts NIPT. Labs at next appt 04/02/24 -?-?-?-?-?-?-?-?-?-?-?-?- 14w 5d 265 lb 8 oz (-1 lb 8 oz) 133/86 Negative -?-?-?-?-?-?-?-?-?-?-?-?- Negative 155 -?-?-?-?-?-?-?-?-?-?-?-?- Sm- no vb crampi ng labs today 05/02/24 -?-?-?-?-?-?-?-?-?-?-?-?- 19w 0d 278 lb 2 oz (+11 lb 2 oz) 126/84 Negative -?-?-?-?-?-?-?-?-?-?-?-?- Negative 146 -?-?-?-?-?-?--?-?-?-?-?-?- MH-No VB. Nausea resolved. Anatomy US next week 05/29/24 -?-?-?-?-?-?-?-?-?-?-?-?- 22w 6d 285 lb 6 oz (+18 lb 6 oz) 120/80 Negative -?-?-?-?-?-?-?-?-?-?-?-?- Negative 155 22 -?-?-?-?-?-?-?-?-?-?-?-?- KW- no vb/ctx. s ome fm. KW- no vb/ctx. some fm. disc ussed CBE classes. glucose discussed 06/24/24 -?-?-?-?-?-?-?-?-?-?-?-?- 26w 4d 291 lb 4 oz (+24 lb 4 oz) 127/83 -?-?-?-?-?-?-?-?-?-?-?-?- 154 28 -?-?-?-?-?-?-?-?-?-?-?-?- JV- feels dizzy at night on her back. we discussed propping mattress. GCT and 3rd trimester labs today ACOG First Trimester First Trimester: Desire for , Alcohol, Tobacco Cessation, Illicit/Recreational Drug/Substance Use, Intimate Partner Violence, Barriers to care, Unstable Housing, Communication Barriers, Environmental/Work Hazards, Anticipated Course of Care, Use of Any medications, Sexual activity, Exercise, Dental Care, Sauna/Hot tub use, Seat Belt use, Childbirth classes/Hospital facilities, Travel, Indications for Ultrasound and Screening for Aneuploidy; Discussed Toxoplasmosis Precations and Discussed Second Trimester Second Trimester: Signs and Symptoms of Labor, Selecting a care provider, Reproductive Life Planning & Contreception, Care Planning, Depression/Anxiety and Intimate Partner Violence; Discussed Tobacco Cessation Third Trimester Third Trimester: Pain Management Plans, Labor support person(s), Immediate Larc, Signs and Symptoms of Preeclampsia, Infant Feeding No , [place] Education and Family Medical Leave or Disability Forms Coding Level of Care Code OB Routine Diagnoses Supervision of high risk in second trimester O09.92 Trimester: second trimester Obesity affecting in second trimester, unspecified obesity type O99.212 Obesity type affecting : unspecified obesity Trimester: second trimester 26 weeks gestation of Z3A.26 Weeks of gestation: 26 weeks HPV in female 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 (3) : Status: Acute Qualifiers: Weeks of gestation: 26 weeks Qualified Code(s): Z3A.26 - 26 weeks gestation of Comment: NIPT low risk, nl anatomy (4) HPV in female: Status: Acute Comment: pap neg 2017 & 2023. Repeat pap 2024 (5) Seasonal allergies: Status: Acute Orders: Orders POC Urinalysis 2 Dip (Clinic) Today CBC W/Diff, Automated Today O09.92 - Supervision of high risk , unspecified, second trimester Glucose Challenge Gest 1H 50g Today O09.92 - Supervision of high risk , unspecified, second trimester, Z13.1 - Encounter for screening for diabetes mellitus HIV Today O09.92 - Supervision of high risk , unspecified, second trimester Syphilis Antibodies Today O09.92 - Supervision of high risk , unspecified, second trimester 06/24/24 1550 <Electronically signed by Rhina Torres DO> Date _ Rhina Sweeney DO Cosigner Signature: Date (if applicable) CC: ~ [facility] Work Phone: [phone]) 766-864703-27-2025 Evaluation note* Diagnosis Onset Date Resolution Status Admit Date 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 May 02, 2024 8:11am Obesity affecting acute May 02, 2024 8:11am acute May 02 8:11am Seasonal allergies acute May 02, 2024 8:11am Supervision of high-risk acute May 02, 2024 8:11am 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 May 29, 2024 7:20am Obesity affecting acute May 29, 2024 7:20am acute May 29 7:20am Seasonal allergies acute May 29, 2024 7:20am Supervision of high-risk acute May 29, 2024 7:20am 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 June 24, 2 025 3:30pm Obesity affecting acute June 24, 2024 3:30pm acute June 24, 2024 3:30pm Seasonal allergies acute June 242024 3:30pm Supervision of high-risk acute June 24, 2024 3 :30pm Abnormal glucose tolerance t est during , antepartum acute Jul 3:24pm Obesity affecting acute July 16, 2024 3:24pm acute July 16 3:24pm Seasonal allergies acute July 072024 3:24pm Supervision of high-risk acute July 16, 2024 3:24pm LGA (large for gestational a ge) fetus deleted July 16, 2024 3:24pm Abnormal glucose tolerance t est during , antepartum acute Jul 8:19am Obesity affecting acute July 30, 2024 8:19am acute July 30 8:19am Supervision of high-risk acute July 30, 2024 8:19am LGA (large for gestational a ge) fetus deleted July 30, 2024 8:19am Abnormal glucose tolerance t est during , antepartum acute Aug 8:07am 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 August 12, 025 8:07am LGA (large for gestational a ge) fetus affecting management of mother acute August 12, 2024 8 :07am Obesity affecting acute August 12, 2024 8:07am acute August 12, 2024 8:07am Seasonal allergies acute August 122024 8:07am Supervision of high-risk acute August 12, 2024 8 :07am LGA (large for gestational a ge) fetus deleted August 12, 2024 8 :07am Abnormal glucose tolerance t est during , antepartum acute Aug 8:32am 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 August 19, 2024 8:32am LGA (large for gestational a ge) fetus affecting management of mother acute August 19, 2024 8:32am Obesity affecting acute August 19, 2024 8:32am acute August 19 8:32am contractions acute August 19, 2024 8:32am Seasonal allergies acute August 062024 8:32am Supervision of high-risk acute August 19, 2024 8:32am [facility] Work Phone: 1([phone]) 880-191102-25-2025 Evaluation note* Diagnosis Onset Date Resolution Status Admit Date 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 April 022024 9:16am Obesity affecting acute April 02, 2024 9:16am acute April 02, 2024 9:16am Seasonal allergies acute 2024 9:16am Supervision of high-risk acute April 02 9:16am 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 May 02, 2024 8:11am Obesity affecting acute May 02, 2024 8:11am acute May 02 8:11am Seasonal allergies acute May 02, 2024 8:11am Supervision of high-risk acute May 02, 2024 8:11am 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 May 29, 2024 7:20am Obesity affecting acute May 29, 2024 7:20am acute May 29 7:20am Seasonal allergies acute May 29, 2024 7:20am Supervision of high-risk acute May 29, 2024 7:20am 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 June 24, 025 3:30pm Obesity affecting acute June 24, 2024 3:30pm acute June 24, 2024 3:30pm Seasonal allergies acute June 242024 3:30pm Supervision of high-risk acute June 24, 2024 3 :30pm [facility] Work Phone: 1(119) 650-192802-25-2025 Evaluation note* Diagnosis Onset Date Resolution Status Admit Date 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 April 022024 9:16am Obesity affecting acute April 02, 2024 9:16am acute April 02, 2024 9:16am Seasonal allergies acute 2024 9:16am Supervision of high-risk acute April 02 025 9:16am 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 May 02, 2024 8:11am Obesity affecting acute May 02, 2024 8:11am acute May 02 8:11am Seasonal allergies acute May 02, 2024 8:11am Supervision of high-risk acute May 02, 2024 8:11am 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 May 29, 2024 7:20am Obesity affecting acute May 29, 2024 7:20am acute May 29 7:20am Seasonal allergies acute May 29, 2024 7:20am Supervision of high-risk acute May 29, 2024 7:20am 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 June 24, 2 025 3:30pm Obesity affecting acute June 24, 2024 3:30pm acute June 24, 2024 3:30pm Seasonal allergies acute June 242024 3:30pm Supervision of high-risk acute June 24, 2024 3 :30pm Abnormal glucose tolerance test during , antepartum acute July 16, 2024 3:24pm 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 July 16, 2024 3:24pm LGA (large for gestational age) fetus acute July 16, 2024 3:24pm Obesity affecting acute July 16, 2024 3:24pm acute July 16 3:24pm Seasonal allergies acute July 072024 3:24pm Supervision of high-risk acute July 16, 2024 3:24pm [facility] Work Phone: 1([phone]) 665-418702-25-2025 Evaluation note* Diagnosis Onset Date Resolution Status Admit Date 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 April 022024 9:16am Obesity affecting acute April 02, 2024 9:16am acute April 02, 2024 9:16am Seasonal allergies acute 2024 9:16am Supervision of high-risk acute April 02, 2 025 9:16am 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 May 02, 2024 8:11am Obesity affecting acute May 02, 2024 8:11am acute May 02 8:11am Seasonal allergies acute May 02, 2024 8:11am Supervision of high-risk acute May 02, 2024 8:11am 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 May 29, 2024 7:20am Obesity affecting acute May 29, 2024 7:20am acute May 29 7:20am Seasonal allergies acute May 29, 2024 7:20am Supervision of high-risk acute May 29, 2024 7:20am 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 June 24, 2 025 3:30pm Obesity affecting acute June 24, 2024 3:30pm acute June 24, 2024 3:30pm Seasonal allergies acute June 242024 3:30pm Supervision of high-risk acute June 24, 2024 3 :30pm Abnormal glucose tolerance test during , antepartum acute July 16, 2024 3:24pm LGA (large for gestational age) fetus acute July 16, 2024 3:24pm Obesity affecting acute July 16, 2024 3:24pm acute July 16 3:24pm Seasonal allergies acute July 072024 3:24pm Supervision of high-risk acute July 16, 2024 3:24pm [facility] Work Phone: 1(225) 182-752702-25-2025 Evaluation note* Diagnosis Onset Date Resolution Status Admit Date 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 April 022024 9:16am Obesity affecting acute April 02, 2024 9:16am acute April 02, 2024 9:16am Seasonal allergies acute 2024 9:16am Supervision of high-risk acute April 02, 025 9:16am 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 May 02, 2024 8:11am Obesity affecting acute May 02, 2024 8:11am acute May 02 8:11am Seasonal allergies acute May 02, 2024 8:11am Supervision of high-risk acute May 02, 2024 8:11am 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 May 29, 2024 7:20am Obesity affecting acute May 29, 2024 7:20am acute May 29 7:20am Seasonal allergies acute May 29, 2024 7:20am Supervision of high-risk acute May 29, 2024 7:20am 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 June 24, 2 025 3:30pm Obesity affecting acute June 24, 2024 3:30pm acute June 24, 2024 3:30pm Seasonal allergies acute June 242024 3:30pm Supervision of high-risk acute June 24, 2024 3 :30pm Abnormal glucose tolerance test during , antepartum acute July 16, 2024 3:24pm LGA (large for gestational age) fetus acute July 16, 2024 3:24pm Obesity affecting acute July 16, 2024 3:24pm acute July 16 3:24pm Seasonal allergies acute July 072024 3:24pm Supervision of high-risk acute July 16, 2024 3:24pm Abnormal glucose tolerance test during , antepartum acute July 30, 2024 8:19am 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 July 30, 2024 8:19am LGA (large for gestational age) fetus acute July 30, 2024 8:19am Obesity affecting acute July 30, 2024 8:19am acute July 30 8:19am Seasonal allergies acute July 082024 8:19am Supervision of high-risk acute July 30, 2024 8:19am [facility] Work Phone: 1(221) 556-994601-24-2025 Evaluation note* Diagnosis Onset Date Resolution Status Admit Date 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 February 2:07pm Obesity affecting acute March 01, 2024 2:07pm acute March 01, 2024 2:07pm Seasonal allergies acute 2024 2:07pm Supervision of normal first resolved March 01 2:07pm 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 April 022024 9:16am Obesity affecting acute April 02, 2024 9:16am acute April 02, 2024 9:16am Seasonal allergies acute 2024 9:16am Supervision of high-risk acute April 02 9:16am 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 May 02, 2024 8:11am Obesity affecting acute May 02, 2024 8:11am acute May 02 8:11am Seasonal allergies acute May 02, 2024 8:11am Supervision of high-risk acute May 02, 2024 8:11am 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 May 29, 2024 7:20am Obesity affecting acute May 29, 2024 7:20am acute May 29 7:20am Seasonal allergies acute May 29, 2024 7:20am Supervision of high-risk acute May 29, 2024 7:20am 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 June 24, 2 025 3:30pm Obesity affecting acute June 24, 2024 3:30pm acute June 24, 2024 3:30pm Seasonal allergies acute June 242024 3:30pm Supervision of high-risk acute June 24, 2024 3 :30pm [facility] Work Phone: 1(571) 967-100811-18-2024 NotePap Smear Specimen AdequacyNovember 2023 6:44pmComment.Satisfactory for evaluation. Endocervical and/or squamous metaplasticcells (endocervical component)are present.[facility] INTER[facility]ACED A#[id number] Southeastern Medical CenterComment on above:Satisfactory for evaluation. Endocervical and/or squamous metaplasticcells (endocervical component)are present.12-25-2023 Evaluation note* Diagnosis Onset Date Resolution Status Admit Date Encounter for routine gynecological examination noneactive Novemb er 2023 7:33am 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 February 2:07pm Obesity affecting acute March 01, 2024 2:07pm acute March 01, 2024 2:07pm Seasonal allergies acute 2024 2:07pm Supervision of normal first resolved March 01 2:07pm 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 April 022024 9:16am Obesity affecting acute April 02, 2024 9:16am acute April 02, 2024 9:16am Seasonal allergies acute 2024 9:16am Supervision of high-risk acute April 02, 2 025 9:16am [facility] Work Phone: Reason for referral (narrative)No reason for referral information availableWMercy Health Work Phone: 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 and Reason for Visit 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 Admit Date Annual ([employer]) December 25, 2023 7:33am PAP December 25, 2023 5:42pm New OB, LMP 11/14, LORY 09/26/24 February 072024 2:07pm 14wk OB April 02, 2024 9:16am Reason for Visit Admit Date Encounter for routine gynecological exam ination December 25, 2023 7:33am HPV in female March 01, 2024 2 :07pm Obesity affecting February 2:07pm March 01, 2024 2 :07pm Seasonal allergies March 01, 2024 2 :07pm Supervision of normal first [facility] 2024 2:07pm HPV in female April 02, 2024 9:16am Obesity affecting March 9:16am April 02, 2024 9:16am Seasonal allergies April 02, 2024 9:16am Supervision of high-risk u [email or web address] 9:16am 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 Admit Date New OB, LMP 12/20, LORY 09/26/24 February 072024 2:07pm 14wk OB April 02, 2024 9:16am 19wk ob May 02, 2024 8:1 1am 23wk ob May 29, 2024 7:2 0am 27wk ob/glucose June 24, 2024 3:30p m Reason for Visit Admit Date HPV in female March 01, 2024 2 :07pm Obesity affecting February 2:07pm March 01, 2024 2 :07pm Seasonal allergies March 01, 2024 2 :07pm Supervision of normal first [facility] 2024 2:07pm HPV in female April 02, 2024 9:16am Obesity affecting March 9:16am April 02, 2024 9:16am Seasonal allergies April 02, 2024 9:16am Supervision of high-risk Elvis [email or web address] 9:16am HPV in female May 02, 2024 8:1 1am Obesity affecting May 02, 2024 8:11am May 02, 2024 8:1 1am Seasonal allergies May 02, 2024 8:1 1am Supervision of high-risk May 02, 2024 8:11am HPV in female May 29, 2024 7:2 0am Obesity affecting May 29, 2024 7:20am May 29, 2024 7:2 0am Seasonal allergies May 29, 2024 7:2 0am Supervision of high-risk May 29, 2024 7:20am HPV in female June 24, 2024 3:30p m Obesity affecting June 24 3:30pm June 24, 2024 3:30p m Seasonal allergies June 24, 2024 3:30p m Supervision of high-risk June 062024 3:30pm 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 Admit Date 14wk OB April 02, 2024 9:16am 19wk ob May 02, 2024 8:1 1am 23wk ob May 29, 2024 7:2 0am 27wk ob/glucose June 24, 2024 3:30p m /E ORDER July 03, 2024 6:42a m Reason for Visit Admit Date HPV in female April 02, 2024 9:16am Obesity affecting March 9:16am April 02, 2024 9:16am Seasonal allergies April 02, 2024 9:16am Supervision of high-risk Febru 2024 9:16am HPV in female May 02, 2024 8:1 1am Obesity affecting May 02, 2024 8:11am May 02, 2024 8:1 1am Seasonal allergies May 02, 2024 8:1 1am Supervision of high-risk May 02, 2024 8:11am HPV in female May 29, 2024 7:2 0am Obesity affecting May 29, 2024 7:20am May 29, 2024 7:2 0am Seasonal allergies May 29, 2024 7:2 0am Supervision of high-risk May 29, 2024 7:20am HPV in female June 24, 2024 3:30p m Obesity affecting June 24 3:30pm June 24, 2024 3:30p m Seasonal allergies June 24, 2024 3:30p m Supervision of high-risk June 062024 3:30pm 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 Admit Date 14wk OB April 02, 2024 9:16am 19wk ob May 02, 2024 8:1 1am 23wk ob May 29, 2024 7:2 0am 27wk ob/glucose June 24, 2024 3:30p m /E ORDER July 03, 2024 6:42a m 30wk ob July 16, 2024 3:24 pm Reason for Visit Admit Date HPV in female April 02, 2024 9:16am Obesity affecting March 9:16am April 02, 2024 9:16am Seasonal allergies April 02, 2024 9:16am Supervision of high-risk Febru [email or web address] 9:16am HPV in female May 02, 2024 8:1 1am Obesity affecting May 02, 2024 8:11am May 02, 2024 8:1 1am Seasonal allergies May 02, 2024 8:1 1am Supervision of high-risk May 02, 2024 8:11am HPV in female May 29, 2024 7:2 0am Obesity affecting May 29, 2024 7:20am May 29, 2024 7:2 0am Seasonal allergies May 29, 2024 7:2 0am Supervision of high-risk May 29, 2024 7:20am HPV in female June 24, 2024 3:30p m Obesity affecting June 24 3:30pm June 24, 2024 3:30p m Seasonal allergies June 24, 2024 3:30p m Supervision of high-risk June 062024 3:30pm Abnormal glucose tolerance t est during , antepartum July 16, 2024 3:24pm HPV in female July 16, 2024 3:24 pm LGA (large for gestational age) fetus Ju 2024 3:24pm Obesity affecting July 16, 2 025 3:24pm July 16, 2024 3:24 pm Seasonal allergies July 16, 2024 3:24 pm Supervision of high-risk July 16, 2024 3:24pm 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 Admit Date 14wk OB April 02, 2024 9:16am 19wk ob May 02, 2024 8:1 1am 23wk ob May 29, 2024 7:2 0am 27wk ob/glucose June 24, 2024 3:30p m /E ORDER July 03, 2024 6:42a m 30wk ob July 16, 2024 3:24 pm GROWTH July 22, 2024 4:02 pm Reason for Visit Admit Date HPV in female April 02, 2024 9:16am Obesity affecting March 9:16am April 02, 2024 9:16am Seasonal allergies April 02, 2024 9:16am Supervision of high-risk Febru [email or web address] 9:16am HPV in female May 02, 2024 8:1 1am Obesity affecting May 02, 2024 8:11am May 02, 2024 8:1 1am Seasonal allergies May 02, 2024 8:1 1am Supervision of high-risk May 02, 2024 8:11am HPV in female May 29, 2024 7:2 0am Obesity affecting May 29, 2024 7:20am May 29, 2024 7:2 0am Seasonal allergies May 29, 2024 7:2 0am Supervision of high-risk May 29, 2024 7:20am HPV in female June 24, 2024 3:30p m Obesity affecting June 24 3:30pm June 24, 2024 3:30p m Seasonal allergies June 24, 2024 3:30p m Supervision of high-risk June 062024 3:30pm Abnormal glucose tolerance t est during , antepartum July 16, 2024 3:24pm LGA (large for gestational age) fetus Ju 2024 3:24pm Obesity affecting July 16, 2 025 3:24pm July 16, 2024 3:24 pm Seasonal allergies July 16, 2024 3:24 pm Supervision of high-risk July 16, 2024 3:24pm 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 Admit Date 14wk OB April 02, 2024 9:16am 19wk ob May 02, 2024 8:1 1am 23wk ob May 29, 2024 7:2 0am 27wk ob/glucose June 24, 2024 3:30p m /E ORDER July 03, 2024 6:42a m 30wk ob July 16, 2024 3:24 pm GROWTH July 22, 2024 4:02 pm 32wk ob July 30, 2024 8:19 am Reason for Visit Admit Date HPV in female April 02, 2024 9:16am Obesity affecting March 9:16am April 02, 2024 9:16am Seasonal allergies April 02, 2024 9:16am Supervision of high-risk Febru [email or web address] 9:16am HPV in female May 02, 2024 8:1 1am Obesity affecting May 02, 2024 8:11am May 02, 2024 8:1 1am Seasonal allergies May 02, 2024 8:1 1am Supervision of high-risk May 02, 2024 8:11am HPV in female May 29, 2024 7:2 0am Obesity affecting May 29, 2024 7:20am May 29, 2024 7:2 0am Seasonal allergies May 29, 2024 7:2 0am Supervision of high-risk May 29, 2024 7:20am HPV in female June 24, 2024 3:30p m Obesity affecting June 24 3:30pm June 24, 2024 3:30p m Seasonal allergies June 24, 2024 3:30p m Supervision of high-risk June 062024 3:30pm Abnormal glucose tolerance t est during , antepartum July 16, 2024 3:24pm LGA (large for gestational age) fetus Ju 2024 3:24pm Obesity affecting July 16, 025 3:24pm July 16, 2024 3:24 pm Seasonal allergies July 16, 2024 3:24 pm Supervision of high-risk July 16, 2024 3:24pm Abnormal glucose tolerance t est during , antepartum July 30, 2024 8:19am HPV in female July 30, 2024 8:19 am LGA (large for gestational age) fetus Ju 2024 8:19am Obesity affecting July 30, 2 025 8:19am July 30, 2024 8:19 am Seasonal allergies July 30, 2024 8:19 am Supervision of high-risk July 30, 2024 8:19am 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 Admit Date 19wk ob May 02, 2024 8:1 1am 23wk ob May 29, 2024 7:2 0am 27wk ob/glucose June 24, 2024 3:30p m /E ORDER July 03, 2024 6:42a m 30wk ob July 16, 2024 3:24 pm GROWTH July 22, 2024 4:02 pm 32wk ob July 30, 2024 8:19 am 34 wk ob/NST August 12, 2024 8:07a m 35 wk ob/nst August 19, 2024 8:32 am Reason for Visit Admit Date HPV in female May 02, 2024 8:1 1am Obesity affecting May 02, 2024 8:11am May 02, 2024 8:1 1am Seasonal allergies May 02, 2024 8:1 1am Supervision of high-risk May 02, 2024 8:11am HPV in female May 29, 2024 7:2 0am Obesity affecting May 29, 2024 7:20am May 29, 2024 7:2 0am Seasonal allergies May 29, 2024 7:2 0am Supervision of high-risk May 29, 2024 7:20am HPV in female June 24, 2024 3:30p m Obesity affecting June 24 3:30pm June 24, 2024 3:30p m Seasonal allergies June 24, 2024 3:30p m Supervision of high-risk June 062024 3:30pm Abnormal glucose tolerance test during p regnancy, antepartum July 16, 2024 3:24pm Obesity affecting July 16, 025 3:24pm July 16, 2024 3:24 pm Seasonal allergies July 16, 2024 3:24 pm Supervision of high-risk July 16, 2024 3:24pm LGA (large for gestational age) fetus Ju 2024 3:24pm Abnormal glucose tolerance test during p regnancy, antepartum July 30, 2024 8:19am Obesity affecting July 30, 2 025 8:19am July 30, 2024 8:19 am Supervision of high-risk July 30, 2024 8:19am LGA (large for gestational age) fetus Ju ne 2024 8:19am Abnormal glucose tolerance test during p regnancy, antepartum August 12, 2024 8:07am HPV in female August 12, 2024 8:07a m LGA (large for gestational a ge) fetus affecting management of mother August 12, 2024 8:07am Obesity affecting August 12 8:07am August 12, 2024 8:07a m Seasonal allergies August 12, 2024 8:07a m Supervision of high-risk August 12, 2024 8:07am LGA (large for gestational age) fetus Ju 2024 8:07am Abnormal glucose tolerance test during p regnancy, antepartum August 19, 2024 8:32am HPV in female August 19, 2024 8:32 am LGA (large for gestational a ge) fetus affecting management of mother August 19, 2024 8:32am Obesity affecting August 19 8:32am August 19, 2024 8:32 am contractions August 19, 2024 8:3 2am Seasonal allergies August 19, 2024 8:32 am Supervision of high-risk August 19, 2024 8:32am Family History No Family History Records Found Relationship Condition Age at Onset Recorded Date/T zully grandmother Cerebrovascular accident (CVA) Unknown Diabetes mellitus Unknown grandfather Myocardial infarction 54 Summary Purpose Advance Directives No Advanced Directives Records FoundNo Advanced Directives Records Found Additional Source Comments Care Teams (unrecognized sec tion and content) Team Status: Active Member Role Status Dates No Primary Care Physician Primary Care Provider Active Team Status: Inactive Member Role Status Dates NERY Hudson Attending Provider Active Start: December 25, 2023 End: December 25, 2023 Team Status: Inactive Member Role Status Dates NERY Hudson Attending Provider Active Start: December 25, 2023 End: December 25, 2023 NERY Hudson Referring Provider Active Start: December 25, 2023 End: December 25, 2023 No Primary Care Physician Primary Care Provider Active Start: December 25, 2023 End: December 25, 2023 Team Status: Inactive Member Role Status Dates No Primary Care Physician Primary Care Provider Active Start: March 01, 2024 End: March 01, 2024 No Primary Care Physician Referring Provider Active Start: March 01, 2024 End: March 01, 2024 Earline Andrade CNM Attending Provider Active S tart: March 01, 2024 End: March 01, 2024 Team Status: Inactive Member Role Status Dates No Primary Care Physician Primary Care Provider Active Start: March 01, 2024 End: March 01, 2024 Earline Andrade CNM Attending Provider Active S tart: March 01, 2024 End: March 01, 2024 Earline Andrade CNM Referring Provider Active S tart: March 01, 2024 End: March 01, 2024 Team Status: Inactive Member Role Status Dates No Primary Care Physician Primary Care Provider Active Start: April 02, 2024 End: April 02, 2024 No Primary Care Physician Referring Provider Active Start: April 02, 2024 End: April 02, 2024 Dr. Maris Aragon MD Attending Provider Active Start: April 02, 2024 End: April 02, 2024 Team Status: Inactive Member Role Status Dates No Primary Care Physician Primary Care Provider Active Start: April 02, 2024 End: April 02, 2024 Earline Andrade CNM Attending Provider Active S tart: April 02, 2024 End: April 02, 2024 Earline Andrade CNM Referring Provider Active S tart: April 02, 2024 End: April 02, 2024 Team Status: Inactive Member Role Status Dates No Primary Care Physician Primary Care Provider Active Start: May 02, 2024 End: May 02, 2024 No Primary Care Physician Referring Provider Active Start: May 02, 2024 End: May 02, 2024 Shea Rodriguez NP, [employer] IN[employer]ATION AND SERVICER-C Attending Provider Active Start: May 02, 2024 End: May 02, 2024 Team Status: Inactive Member Role Status Dates No Primary Care Physician Primary Care Provider Active Start: May 29, 2024 End: May 29, 2024 No Primary Care Physician Referring Provider Active Start: May 29, 2024 End: May 29, 2024 Earline Andrade CNM Attending Provider Active S tart: May 29, 2024 End: May 29, 2024 Team Status: Inactive Member Role Status Dates No Primary Care Physician Primary Care Provider Active Start: June 24, 2024 End: June 24, 2024 No Primary Care Physician Referring Provider Active Start: June 24, 2024 End: June 24, 2024 Dr. Rhina Sweeney DO Attending Provider Activ e Start: June 24, 2024 End: June 24, 2024 Team Status: Active Member Role Status Dates No Primary Care Physician Primary Care Provider Active Start: June 24, 2024 Earline Andrade CNM Attending Provider Active S tart: June 24, 2024 Earline Andrade CNM Referring Provider Active S tart: June 24, 2024 Team Status: Inactive Member Role Status Dates No Primary Care Physician Primary Care Provider Active Start: June 24, 2024 End: June 24, 2024 Earline Andrade CNM Attending Provider Active S tart: June 24, 2024 End: June 24, 2024 Earline Andrade CNM Referring Provider Active S tart: June 24, 2024 End: June 24, 2024 Team Status: Inactive Member Role Status Dates No Primary Care Physician Primary Care Provider Active Start: July 03, 2024 End: July 03, 2024 Dr. Rhina Sweeney , DO Attending Provider Activ e Start: July 03, 2024 End: July 03, 2024 Dr. Rhina Sweeney , DO Referring Provider Activ e Start: July 03, 2024 End: July 03, 2024 Team Status: Inactive Member Role Status Dates No Primary Care Physician Primary Care Provider Active Start: July 16, 2024 End: July 16, 2024 No Primary Care Physician Referring Provider Active Start: July 16, 2024 End: July 16, 2024 Shea Rodriguez [employer] IN[employer]ATION [employer] SERVICER, [employer]ATION [employer]ER-C Attending Provider Active Start: July 16, 2024 End: July 16, 2024 Team Status: Inactive Member Role Status Dates No Primary Care Physician Primary Care Provider Active Start: July 22, 2024 End: July 22, 2024 Shea Rodriguez [employer] IN[employer]ATION AND SERVICER, [employer]ATION AND SERVICER-C Attending Provider Active Start: July 22, 2024 End: July 22, 2024 Shea Rodriguez [employer] INST[employer]ATION AND SERVICER, [employer]ATION AND SERVICER-C Referring Provider Active Start: July 22, 2024 End: July 22, 2024 Team Status: Inactive Member Role Status Dates No Primary Care Physician Primary Care Provider Active Start: July 30, 2024 End: July 30, 2024 No Primary Care Physician Referring Provider Active Start: July 30, 2024 End: July 30, 2024 Shea Rodriguez [employer] INST[employer]ATION AND SERVICER, [employer] IN[employer]ATION AND SERVICER-C Attending Provider Active Start: July 30, 2024 End: July 30, 2024 Team Status: Active Member Role/Relationship Status Dates No Primary Care Physician Primary Care Provider Active Team Status: Inactive Member Role/Relationship Status Dates No Primary Care Physician Primary Care Provider Active Start: May 02, 2024 End: May 02, 2024 No Primary Care Physician Referring Provider Active Start: May 02, 2024 End: May 02, 2024 Shea Rodriguez [employer], [employer] Attending Provider Active Start: May 02, 2024 End: May 02, 2024 Team Status: Inactive Member Role/Relationship Status Dates No Primary Care Physician Primary Care Provider Active Start: May 29, 2024 End: May 29, 2024 No Primary Care Physician Referring Provider Active Start: May 29, 2024 End: May 29, 2024 Earline Andrade CNM Attending Provider Active S tart: May 29, 2024 End: May 29, 2024 Team Status: Inactive Member Role/Relationship Status Dates No Primary Care Physician Primary Care Provider Active Start: June 24, 2024 End: June 24, 2024 No Primary Care Physician Referring Provider Active Start: June 24, 2024 End: June 24, 2024 Dr. Rhina Sweeney DO Attending Provider Activ e Start: June 24, 2024 End: June 24, 2024 Team Status: Inactive Member Role/Relationship Status Dates No Primary Care Physician Primary Care Provider Active Start: June 24, 2024 End: June 24, 2024 Earline Andrade CNM Attending Provider Active S tart: June 24, 2024 End: June 24, 2024 Earline Andrade CNM Referring Provider Active S tart: June 24, 2024 End: June 24, 2024 Team Status: Inactive Member Role/Relationship Status Dates No Primary Care Physician Primary Care Provider Active Start: July 03, 2024 End: July 03, 2024 Dr. Rhina Sweeney DO Attending Provider Activ e Start: July 03, 2024 End: July 03, 2024 Dr. Rhina Sweeney DO Referring Provider Activ e Start: July 03, 2024 End: July 03, 2024 Team Status: Inactive Member Role/Relationship Status Dates No Primary Care Physician Primary Care Provider Active Start: July 16, 2024 End: July 16, 2024 No Primary Care Physician Referring Provider Active Start: July 16, 2024 End: July 16, 2024 Shea [place] [employer], [employer] Attending Provider Active Start: July 16, 2024 End: July 16, 2024 Team Status: Inactive Member Role/Relationship Status Dates No Primary Care Physician Primary Care Provider Active Start: July 22, 2024 End: July 22, 2024 Shea Rodriguez [employer], [employer] Attending Provider Active Start: July 22, 2024 End: July 22, 2024 Shea Rodriguez [employer], [employer] Referring Provider Active Start: July 22, 2024 End: July 22, 2024 Team Status: Inactive Member Role/Relationship Status Dates No Primary Care Physician Primary Care Provider Active Start: July 30, 2024 End: July 30, 2024 No Primary Care Physician Referring Provider Active Start: July 30, 2024 End: July 30, 2024 Shea Rodriguez [employer], [employer] Attending Provider Active Start: July 30, 2024 End: July 30, 2024 Team Status: Inactive Member Role/Relationship Status Dates No Primary Care Physician Primary Care Provider Active Start: August 12, 2024 End: August 12, 2024 No Primary Care Physician Referring Provider Active Start: August 12, 2024 End: August 12, 2024 Dr. Rhina Sweeney DO Attending Provider Activ e Start: August 12, 2024 End: August 12, 2024 Team Status: Inactive Member Role/Relationship Status Dates No Primary Care Physician Primary Care Provider Active Start: August 19, 2024 End: August 19, 2024 No Primary Care Physician Referring Provider Active Start: August 19, 2024 End: August 19, 2024 Dr. Rhina Sweeney DO Attending Provider Activ e Start: August 19, 2024 End: August 19, 2024 Goals (unrecognized section and content) Goals may be documented in a n alternate sectionGoals may be documented in an alternate sectionGoals may be documented in an alternate sectionGoals may be documented in an alternate sectionGoals may be documented in an alternate sectionGoals may be documented in an alternate sectionGoals may be documented in an alternate section INFORMATION SOURCE (unrecogn ized section and content) DATE CREATED AUTHOR 05/25/2024 [facility] DATE CREATED AUTHOR 'Linsey SIDHU ATJOSHUA 08/21/2024 [facility] FOR RECORDS PERTAINING TO PATIENTS WHO ARE OR HAVE BEEN ENROLLED IN A CHEMICAL DEPENDENCY/SUBSTANCEABUSE PROGRAM, SOME INFORMATION MAY BE OMITTED. This clinical summary was aggregated from multiple sources. Caution should be exercised in using it in the provision of clinical care. This summary normalizes information from multiple sources, and as a consequence, information in this document may materially change the coding, format and clinical context of patient data. In addition, data may be omitted in some cases. CLINICAL DECISIONS SHOULD BE BASED ON THE PRIMARY CLINICAL RECORDS. [facility]. provides no warranty or guarantee of the accuracy or completeness of information in this document.
--- OUTSIDE RECORDS SUMMARY | 2024-08-21 08:18 | XMS RPT_ITS | CCD ---
Author Organization [facility]iniSyn[facility] Care Team Providers Care Special Makeup Fx Artist Instructor Name Role Phone Ankush CHOPRA-CLaura Attending Provider [phone] Ankush CHOPRA-CLaura Referring Provider [phone] Care Physician, No Primary Primary Care Provider Unavailable Care Physician, No Primary Referring Provider Un available Earline Andrade CNM Attending Provider [phone] Earline Andrade CNM Referring Provider [phone] Shmuel JURADO, Dr. Pollock Attending Provider [phone] NO PRIMARY CARE, MD Primary Care Unavailable KEVIN DEE Attending Unavailable MARIS ARAGON Referring Unavailabl e MARIS ARAGON Referring Unavailabl e NO PRIMARY CARE, Primary Care Unavailable TIMOTEO GUERRERO Attending Unavailable Care Physician, No Primary Primary Care Provider Unavailable Shea Farley Attending Provider [phone] Dr. Rhina Sweeney DO Attending Provider Care Physician, No Primary Primary Care Provider Unavailable Care Physician, No Primary Referring Provider Un available Earline Andrade CNM Attending Provider [phone] Earline Andrade CNM Referring Provider [phone] Dr. Rhina Sweeney DO Referring Provider Jennifer CHOPRA-CShea Referring Provider [phone] Care Physician, No Primary Primary Care Provider Unavailable Care Physician, No Primary Referring Provider Un available Earline Andrade CNM Attending Provider [phone] Earline Andrade CNM Referring Provider [phone] Care Physician, No Primary Primary Care Unava ilable Jennifer STEAMER TENDERShea Referring Unavailable Shea Rodriguez NP Attending Unavailable [...] Care Physician, No Primary Referring Unava ilable [place] STEAMER TENDER, Shea Attending Unavailable Care Physician, No Primary Primary Care Unava ilable Care Physician, No Primary Referring Unava ilable Earline Andrade Attending Unavailable Care Physician, No Primary Primary Care Unava ilable Care Physician, No Primary Referring Unava ilable Earline Andrade Attending Unavailable Care Physician, No Primary Primary Care Unava ilable Care Physician, No Primary Referring Unava ilable [place] STEAMER TENDER, Shea Attending Unavailable Care Physician, No Primary Primary Care Unava ilable Care Physician, No Primary Referring Unava ilable Jennifer STEAMER TENDER, Shea Attending Unavailable Care Physician, No Primary [...] Physician, No Primary Primary Care Unava ilable [place] STEAMER TENDER, Shea Referring Unavailable [place] STEAMER TENDER, Shea Attending Unavailable Medications Current Medications Medication Drug Class(es) Dates Sig (Normalized) Sig (Original) Blood-Glucose Meter misc (5 sources) Start: 07-03-2024 Blood-Glucose Meter misc Active 0 .MEDSUPPLY 1 0 July 03, 2024 12:00am As directed- Test fasting 3-4 times per week Start: 07-03-2024 Blood-Glucose Meter misc Active 0 .MEDSUPPLY 1 July 03, 2024 12:00am As directed- Test fasting 3-4 times per week Mv-Mins 00-Wcaq-Gylcu No.1-D hearn (Pnv-Mclean) 28-1-300 mg capsule (7 sources) Start: 02-23-2024 Mv-Mins 71-Iro n-Folic No.1-Dha (Pnv-Mclean) 28-1-300 mg capsule Active NMA PO February [...] Test Name Value Interpretation Reference Range Facility Carbon Paste Mixer Operator Office Visit Reporton 08-19-2024 Carbon Paste Mixer Operator Office Visit Report [facility] [address], [address] [place] [address] OFFICE VISIT Date of Service: 08/19/24 MR#: [id number] Acct: [id number] Name: SAMEER CABALLERO KELSEY Rep #: [id number] : 1990 Provider: Dr. Rhina Santos DO Age/Sex: 34/F [place] [facility] [place]: Signed Intake Vital Signs 07/16/24 15:29 08/12/24 08:12 08/19/24 08:37 08/19/24 08:37 Height 5 ft 5 in 5 ft 5 in 5 ft 5 in 5 ft 5 in Weight: 298 lb 6 oz BMI 49.6 BP 126/77 H Intake Visit Reasons: 35 wk ob/nst 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: 35wk Ob/nst Electrician Constructor Supervisor Required: No Is patient in pain?: No Allergies No Known Allergies Allergy (Verified 08/19/24 08:35) Medications ???Medication ???Instructions ???Recorded ???Confirmed ???Type multivit-min no.71-iron fum 28 cap PO 02/23/24 08/19/24 History mg-folate no.1 1 mg-dha 300 mg capsule (PNV-Mclean) blood sugar diagnostic (Blood #120 ea 07/03/24 08/19/24 Rx Glucose Test strips) blood-glucose meter #1 ea 07/03/24 08/19/24 Rx lancets #100 ea 07/03/24 08/19/24 Rx Last Menstrual Period: 12/21/23 : No Have you fallen in the past year?: No PFSH PFSH Medical History Seasonal allergies History of frequent headaches Surgical History Reed teeth extracted Family History Grandmother CVA (cerebral vascular accident) Maternal Diabetes Maternal Grandfather Myocardial infarction, Onset Age: 54 Maternal Social History adopted: No household members: spouse housing: house number of children: 0 current occupational status: employed current occupation: [employer] current occupational exposures/hazards: No pets and animals: Yes pets and animals: dog(s) history of recent travel: Yes ([employer] [place] in January) out of state: Yes [...] physical activity do you participate in: none ganesh/pentecostalism: Catholic seatbelt use: always do you feel safe [...] ???-???-???-???-???-? ??-???- (more content not included)... Normal [facility] Laboratory - Chemistry and C hemistry - challengeOrdered By: Rhina Murcia on 08-12-2024 Glucose Ql (U) Negative [facility] Laboratory - UrinalysisOrder ed By: Rhina Divina on 08-12-2024 Protein Ql (U) Negative [facility] Carbon Paste Mixer Operator Office Visit Reporton 08-12-2024 Carbon Paste Mixer Operator Office Visit Report [facility] [address], [address] [place] [address] OFFICE VISIT Date of Service: 08/12/24 MR#: [id number] Acct: [id number] Name: SAMEER CABALLERO Rep #: [id number] : 1990 Provider: Dr. Rhina Santos DO Age/Sex: 34/F [place] [facility] [place]: Signed Intake Vital Signs 07/16/24 15:29 07/30/24 08:28 08/12/24 08:11 08/12/24 08:12 Height 5 ft 5 in 5 ft 5 in 5 ft 5 in 5 ft 5 in Weight: 297 lb 6 oz BMI 49.4 BP 130/84 H Intake Visit Reasons: 34 wk ob/NST Electrician Constructor Supervisor Required: No Is patient in pain?: No Allergies No Known Allergies Allergy (Verified 08/12/24 08:11) Medications ???Medication ???Instructions ???Recorded ???Confirmed ???Type multivit-min no.71-iron fum 28 cap PO 02/23/24 08/12/24 History mg-folate no.1 1 mg-dha 300 mg capsule (PNV-Mclean) blood sugar diagnostic (Blood #120 ea 07/03/24 08/12/24 Rx Glucose Test strips) blood-glucose meter #1 ea 07/03/24 08/12/24 Rx lancets #100 ea 07/03/24 08/12/24 Rx Last Menstrual Period: 12/21/23 Zika: Zika virus screening: Negative : No PFSH PFSH Medical History Seasonal allergies History of frequent headaches Surgical History Reed teeth extracted Family History Grandmother CVA (cerebral vascular accident) Maternal Diabetes Maternal Grandfather Myocardial infarction, Onset Age: 54 Maternal Social History adopted: No household members: spouse housing: house number of children: 0 current occupational status: employed current occupation: [employer] current occupational exposures/hazards: No pets and animals: [...] physical activity do you participate in: none ganesh/pentecostalism: Catholic seatbelt use: always do you feel safe [...] VB. N (more content not included)... Normal [facility] Laboratory - Chemistry and C hemistry - challengeOrdered By: Shea Rodriguez on 07-30-2024 Glucose Ql (U) Negative [facility] Laboratory - UrinalysisOrder ed By: Shea Rodriguez on 07-30-2024 Protein Ql (U) Negative [facility] Carbon Paste Mixer Operator Office Visit Reporton 07-30-2024 Carbon Paste Mixer Operator Office Visit Report [facility] [address], [address] [place] [address] OFFICE VISIT Date of Service: 07/30/24 MR#: [id number] Acct: [id number] Name: SAMEER CABALLERO Rep #: [id number] : 1990 Provider: NERY hsieh Age/Sex: 34/F Location[place] [facility] [place]: Signed Intake Vital Signs 06/24/24 15:33 07/16/24 15:29 07/30/24 08:22 07/30/24 08:28 Height 5 ft 5 in 5 ft 5 in 5 ft 5 in 5 ft 5 in Weight: 292 lb BMI 48.6 BP 118/78 Intake Visit Reasons: 32wk ob 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: 32 Week OB Electrician Constructor Supervisor Required: No Is patient in pain?: No Allergies No Known Allergies Allergy (Verified 07/30/24 08:22) Medications ???Medication ???Instructions ???Recorded ???Confirmed ???Type multivit-min no.71-iron fum 28 cap PO 02/23/24 07/30/24 History mg-folate no.1 1 mg-dha 300 mg capsule (PNV-Mclean) blood sugar diagnostic (Blood #120 ea 07/03/24 07/30/24 Rx Glucose Test strips) blood-glucose meter #1 ea 07/03/24 07/30/24 Rx lancets #100 ea 07/03/24 07/30/24 Rx Last Menstrual Period: 12/21/23 Zika: Zika virus screening: Negative : No PFSH PFSH Medical History Seasonal allergies History of frequent headaches Surgical History Reed teeth extracted Family History Grandmother CVA (cerebral vascular accident) Maternal Diabetes Maternal Grandfather Myocardial infarction, Onset Age: 54 Maternal Social History adopted: No household members: spouse housing: house number of children: 0 current occupational status: employed current occupation: [employer] current occupational exposures/hazards: No pets and animals: Yes pets and animals: dog(s) history of recent travel: Yes ([facility] in January) out of state: Yes [...] physical activity do you participate in: none ganesh/pentecostalism: Catholic seatbelt use: always do you feel safe [...] ??-???- - (more content not included)... Normal [facility] OB Limited With Biometricson 07-22-2024 OB Limited With Biometrics [facility] Imaging Services [address] [place] [id number] OB Limited With Biometrics MR#: [id number] Acct: [id number] Name: SAMEER CABALLERO Rep #: [id number] : 1990 F 34 From: Kale moyer MD PCP: Care Physician,No Primary Status: [facility] CLI Study: OB Limited With Biometrics Date of Exam: 07/22 Exam# [id number] Ordering Dr: Shea Rodriguez NP STEAMER TENDER -C PROCEDURE: OB LIMITED WITH BIOMETRICS 07/22/2024 [...] 33 weeks and 0 days. Reading Location: [place] [address] CC: STEAMER TENDER-C Shea Rodriguez; No Primary Care Physician Strategic Partner Development Manager: Signed Normal [facility] Laboratory - Chemistry and C hemistry - challengeOrdered By: Shea Rodriguez on 07-16-2024 Glucose Ql (U) Negative [facility] Laboratory - UrinalysisOrder ed By: Shea Rodriguez on 07-16-2024 Protein Ql (U) Negative [facility] Carbon Paste Mixer Operator Office Visit Reporton 07-16-2024 Carbon Paste Mixer Operator Office Visit Report [facility], [address] [place] [address] OFFICE VISIT Date of Service: 07/16/24 MR#: [id number] Acct: [id number] Name: SAMEER CABALLERO Rep #: [id number] : 1990 Provider: NERY hsieh Age/Sex: 34/F Location[place] [facility] [place]: Signed Intake Vital Signs 05/02/24 08:39 06/24/24 15:33 07/16/24 15:29 Height 5 ft 5 in 5 ft 5 in 5 ft 5 in Weight: 295 lb 4 oz BMI 49.1 BP 120/74 Intake Visit Reasons: 30wk ob 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: 30 Week OB Electrician Constructor Supervisor Required: No Is patient in pain?: No Allergies No Known Allergies Allergy (Verified 07/16/24 15:29) Medications ???Medication ???Instructions ???Recorded ???Confirmed ???Type multivit-min no.71-iron fum 28 cap PO 02/23/24 07/16/24 History mg-folate no.1 1 mg-dha 300 mg capsule (PNV-Mclean) blood sugar diagnostic (Blood #120 ea 07/03/24 07/16/24 Rx Glucose Test strips) blood-glucose meter #1 ea 07/03/24 07/16/24 Rx lancets #100 ea 07/03/24 07/16/24 Rx Last Menstrual Period: 12/21/23 Zika: Zika virus screening: Negative : No PFSH PFSH Medical History Seasonal allergies History of frequent headaches Surgical History Reed teeth extracted Family History Grandmother CVA (cerebral vascular accident) Maternal Diabetes Maternal Grandfather Myocardial infarction, Onset Age: 54 Maternal Social History adopted: No household members: spouse housing: house number of children: 0 current occupational status: employed current occupation: [employer] current occupational exposures/hazards: No pets and animals: [...] physical activity do you participate in: none ganesh/pentecostalism: Catholic seatbelt use: always do you feel safe [...] usea resol (more content not included)... Normal [facility] Gestational GTT 3HR 100gon 0 07-03-2024 GEST GTT 100gm Normal [facility] Comment on above: Order Comment: [...] 1014 Performed By: #### L 500.4710 #### [facility] Laboratory [facility] [place], [address] Quantitative serum or plasma 3 hour gestational glucose tolerance panelOrdered By: Rhina Murcia on 07-03-2024 Glucose tolerance 3 hours gestational panel See comment [facility] Comment on above: FASTING 96 [...] Auto (Unsp spec) [#/Vol] 1.97 10*3/uL 0.83-4.51 [facility] Absolute neutrophil countOrd ered By: Rhina Murcia on 06-24-2024 Neutrophils (Bld) [#/Vol] 7.8 10*3/uL High 2.0-7.7 [facility] Automated lymphocyte count a s percentage of total leukocytesOrdered By: Rhina Murcia on 06-24-2024 Lymphocytes/100 WBC Auto (Unsp spec) 18.8 % Low 19-41 [facility] Basophil percentageOrdered B y: Rhina Murcia on 06-24-2024 Basophils/100 WBC (Bld) 0.2 % 0-1 [facility] CBC W/Diff, Automatedon 06-06 Absolute Lymph 1.97 X10 3/uL Normal 0.83-4.51 [facility] Comment on above: Performed By: #### L 509.8002, L100.0100, L3890.6006, L501.0250 #### [facility] Laboratory [address] [place], [address] Absolute Neut 7.8 X10 3/uL High 2.0-7.7 [facility] Comment on above: Performed By: #### L 509.8002, L100.0100, L3890.6006, L501.0250 #### [facility] [address] [place], [address] Basophils/100 WBC (Bld) 0.2 % Normal 0-1 [facility] Comment on above: Performed By: #### L 509.8002, L100.0100, L3890.6006, L501.0250 #### [facility] [address] [place], [address] Eosinophils/100 WBC (Bld) 1.0 % Normal 0-5 [facility] Comment on above: Performed By: #### L 509.8002, L100.0100, L3890.6006, L501.0250 #### [facility] [address] [place], [address] Erythrocyte distribution width (RBC) [Ratio] 14.4 % Normal 11.6-14.6 [facility] Comment on above: Performed By: #### L 509.8002, L100.0100, L3890.6006, L501.0250 #### [facility] [address] [place], [address] Hematocrit (Bld) [Volume fraction] 33.4 % Low 37-47 [facility] Comment on above: Performed By: #### L 509.8002, L100.0100, L3890.6006, L501.0250 #### [facility] [address] [place], [address] Hemoglobin (Bld) [Mass/Vol] 11.0 g/dL Low 12.0-15.0 [facility] Comment on above: Performed By: #### L 509.8002, L100.0100, L3890.6006, L501.0250 #### [facility] [address] [place], [address] IG% 0.500 Normal 0.0-0.9 [facility] Comment on above: Result Comment: IG% - Immature Granulocytes (promyelocytes, myelocytes and metamyelocytes) > 1% indicates that a LEFT SHIFT is Present. Performed By: #### L 509.8002, L100.0100, L3890.6006, L501.0250 #### [facility] [address] [place], [address] Lymphocytes/100 WBC (Bld) 18.8 % Low 19-41 [facility] Comment on above: Performed By: #### L 509.8002, L100.0100, L3890.6006, L501.0250 #### [facility] [address] [place], [address] MCH (RBC) [Entitic mass] 27.9 pg Normal 27.0-32.0 [facility] Comment on above: Performed By: #### L 509.8002, L100.0100, L3890.6006, L501.0250 #### [facility] [address] [place], [address] MCHC (RBC) [Mass/Vol] 32.9 g/dL Normal 32-[address] [facility] Comment on above: Performed By: #### L 509.8002, L100.0100, L3890.6006, L501.0250 #### [facility] [address] [place], [address] MCV (RBC) [Entitic vol] 84.8 fL Normal 81-99 [facility] Comment on above: Performed By: #### L 509.8002, L100.0100, L3890.6006, L501.0250 #### [facility] [address] [place], [address] Monocytes/100 WBC (Bld) 5.0 % Normal 0-10 [facility] Comment on above: Performed By: #### L 509.8002, L100.0100, L3890.6006, L501.0250 #### [facility] [address] [place], [address] Neutrophils/100 WBC (Bld) 74.5 % High 47-70 [facility] Comment on above: Performed By: #### L 509.8002, L100.0100, L3890.6006, L501.0250 #### [facility] [address] [place], [address] Nucleated RBC (Bld) [#/Vol] 0 10*3/uL Normal 0-5 [facility] Comment on above: Performed By: #### L 509.8002, L100.0100, L3890.6006, L501.0250 #### [facility] [address] [place], [address] Platelet mean volume (Bld) [Entitic vol] 10.4 fL Normal 6.2-12.0 [facility] Comment on above: Performed By: #### L 509.8002, L100.0100, L3890.6006, L501.0250 #### [facility] [address] [place], [address] Platelets (Bld) [#/Vol] 290 10*3/uL Normal 150-450 [facility] Comment on above: Performed By: #### L 509.8002, L100.0100, L3890.6006, L501.0250 #### [facility] [address] [place], [address] RBC (Bld) [#/Vol] 3.94 10*6/uL Low 4.2-5.4 [facility] Comment on above: Performed By: #### L 509.8002, L100.0100, L3890.6006, L501.0250 #### [facility] [address] [place], [address] RDW SD 44.6 fl High 35.1-43.9 [facility] Comment on above: Performed By: #### L 509.8002, L100.0100, L3890.6006, L501.0250 #### [facility] [address] [place], [address] WBC (Bld) [#/Vol] 10.5 10*3/uL Normal 4.4-11.0 [facility] Comment on above: Performed By: #### L 509.8002, L100.0100, L3890.6006, L501.0250 #### [facility] [address] [place], [address] Eosinophil percentageOrdered By: Rhina Murcia on 06-24-2024 Eosinophils/100 WBC (Bld) 1.0 % 0-5 [facility] Erythrocyte distribution wid th ratioOrdered By: Rhina Murcia on 06-24-2024 Erythrocyte distribution width (RBC) [Ratio] 14.4 % 11.6-14.6 [facility] Erythrocyte distribution wid th standard deviationOrdered By: Rhina Murcia on 06-24-2024 Erythrocyte distribution width (RBC) [Ratio] 44.6 fl High 35.1-43.9 [facility] Glucose Challenge Gest 1H 50 abdirahman 06-24-2024 GLU GEST 50g 1H 139 mg/dL Normal 70-140 [facility] Comment on above: Performed By: #### L 509.8002, L100.0100, L3890.6006, L501.0250 #### [facility] [address] [place], [place], [address] Glucose measurement at 2 virgen rs post-dose gestational glucose tolerance testOrdered By: Rhina Murcia on 06-24-2024 Glucose [Mass/Vol] 139 mg/dL 70-140 [facility] HIVon 06-24-2024 HIV Non-Reactive Normal Nonreactive [facility] Comment on above: Result Comment: Non- Reactive Reactive Repeatedly reactive samples must be confirmed according to CDC recommended confirmatory algorithms. The subresults for either HIVAG or AHIV can be used as an aid in the selection of the confirmation algorithm for reactive samples. Send out specimens with Reactive results to [facility] for confirmation. Order the HIV antibody detection and differentiation: lc#[id number] Performed By: #### L 509.8002, L100.0100, L3890.6006, L501.0250 #### [facility] [address] [place], [place], [address] Hematocrit Auto (Bld) [Volum e fraction]Ordered By: Rhina Murcia on 06-24-2024 Hematocrit (Bld) [Volume fraction] 33.4 % Low 37-47 [facility] Hemoglobin measurementOrdere d By: Rhina Murcia on 06-24-2024 Hemoglobin (Bld) [Mass/Vol] 11.0 g/dL Low 12.0-15.0 [facility] Immature granulocytes/100 WB C Auto (Bld)Ordered By: Rhina Murcia on 06-24-2024 Immature granulocytes/100 WBC (Bld) 0.500 % 0.0-0.9 [facility] Comment on above: IG% - Immature Granu locytes (promyelocytes, myelocytes and metamyelocytes) > 1% indicates that a LEFT SHIFT is Present. Laboratory - Chemistry and C hemistry - challengeOrdered By: Rhina Murcia on 06-24-2024 Glucose Ql (U) Negative [facility] Laboratory - UrinalysisOrder ed By: Rhina Murcia on 06-24-2024 Protein Ql (U) Negative [facility] MCV (mean corpuscular volume ) determinationOrdered By: Rhina Murcia on 06-24-2024 MCV (RBC) [Entitic vol] 84.8 fL 81-99 [facility] Mean corpuscular hemoglobin (MCH) determinationOrdered By: Rhina Murcia on 06-24-2024 MCH (RBC) [Entitic mass] 27.9 pg 27.0-32.0 [facility] Mean corpuscular hemoglobin concentration (MCHC) determinationOrdered By: Rhina Murcia on 06-24-2024 MCHC (RBC) [Mass/Vol] 32.9 g/dL 32-[address] [facility] Mean platelet volume determi nationOrdered By: Rhina Murcia on 06-24-2024 Platelet mean volume (Bld) [Entitic vol] 10.4 fL 6.2-12.0 [facility] Monocyte percentageOrdered B y: Rhina Murcia on 06-24-2024 Monocytes/100 WBC (Bld) 5.0 % 0-10 [facility] Neutrophil percentageOrdered By: Rhina Murcia on 06-24-2024 Neutrophils/100 WBC (Bld) 74.5 % High 47-70 [facility] No Panel InformationOrdered By: Rhina Murcia on 06-24-2024 HIV (1&2) Antibody Non-Reactive Nonreactive [facility] Comment on above: Non-ReactiveReactive Repeatedly reactive samples must be confirmed according to CDC recommended confirmatory algorithms. The subresults for either HIVAG or AHIV can be used as an aid in the selection of the confirmation algorithm for reactive samples.Send out specimens with Reactive results to [facility] for confirmation.Order the HIV antibody detection and differentiation: #[id number] Nucleated red blood cell per centageOrdered By: Rhina Murcai on 06-24-2024 Nucleated RBC/100 WBC (Bld) [Ratio] 0 % 0-5 [facility] Carbon Paste Mixer Operator Office Visit Reporton 06-24-2024 Carbon Paste Mixer Operator Office Visit Report [facility] [address] [place] [address], [address] [place] [address] OFFICE VISIT Date of Service: 06/24/24 MR#: [id number] Acct: [id number] Name: SAMEER CABALLERO Rep #: [id number] : 1990 Provider: Dr. Rhina Santos DO Age/Sex: 34/F [place] [facility] [place] Status: Signed Intake Vital Signs 05/02/24 08:23 05/02/24 08:39 05/29/24 07:31 06/24/24 15:31 06/24/24 15:33 Height 5 ft 5 in 5 ft 5 in 5 ft 5 in 5 ft 5 in 5 ft 5 in Weight: 291 lb 4 oz BMI 48.4 BP 127/83 H Intake Visit Reasons: 27wk ob/glucose Electrician Constructor Supervisor Required: No Is patient in pain?: No Allergies No Known Allergies Allergy (Verified 06/24/24 15:31) Medications ???Medication ???Instructions ???Recorded ???Confirmed ???Type multivit-min no.71-iron fum 28 cap PO 02/23/24 06/24/24 History mg-folate no.1 1 mg-dha 300 mg capsule (PNV-Mclean) Last Menstrual Period: 12/21/23 Zika: Zika virus screening: Negative : No PFSH PFSH Medical History Seasonal allergies History of frequent headaches Surgical History Reed teeth extracted Family History Grandmother CVA (cerebral vascular accident) Maternal Diabetes Maternal Grandfather Myocardial infarction, Onset Age: 54 Maternal Social History adopted: No household members: spouse housing: house number of children: 0 current occupational status: employed current occupation: [employer] current occupational exposures/hazards: No pets and animals: Yes pets and animals: dog(s) history of recent travel: Yes ([place] in January) out of state: Yes [...] physical activity do you participate in: none ganesh/pentecostalism: Catholic seatbelt use: always do you feel safe [...] -???-???-???-???-???- ?? (more content not included)... Normal [facility] Platelet countOrdered By: Valdemar Murcia on 06-24-2024 Platelets (Bld) [#/Vol] 290 10*3/uL 150-450 [facility] RBC Auto (Bld) [#/Vol]Ordere d By: Rhina Murcia on 06-24-2024 RBC (Bld) [#/Vol] 3.94 10*6/uL Low 4.2-5.4 [facility] Syphilis Antibodieson 2024 Syphilis Abs Non-Reactive Normal Nonreactive [facility] Comment on above: Performed By: #### L 509.8002, L100.0100, L3890.6006, L501.0250 #### [facility] Laboratory [address] [place], [place] [address], [address] White blood cell (WBC) count Ordered By: Rhina Murcia on 06-24-2024 WBC (Bld) [#/Vol] 10.5 10*3/uL 4.4-11.0 [facility] Laboratory - Chemistry and C hemistry - challengeOrdered By: Earline Andrade on 05-29-2024 Glucose Ql (U) Negative [facility] Laboratory - UrinalysisOrder ed By: Earline Andrade on 05-29-2024 Protein Ql (U) Negative [facility] [employer] Operator Office Visit Reporton 05-29-2024 [employer]er Operator [facility] [address] [place] [address], [address] [place] [address] OFFICE VISIT Date of Service: 05/29/24 MR#: [id number] Acct: [id number] Name: SAMEER CABALLERO Rep #: [id number] : 1990 Provider: MARIO Fournier ams Age/Sex: 34/F [place] [facility] [place] Status: Signed Intake Vital Signs 03/01/24 14:33 05/02/24 08:39 05/29/24 07:25 05/29/24 07:31 Height 5 ft 5 in 5 ft 5 in 5 ft 5 in 5 ft 5 in Weight: 285 lb 6 oz BMI 47.5 BP 120/80 Intake Visit Reasons: 23wk ob Electrician Constructor Supervisor Required: No Is patient in pain?: No Allergies No Known Allergies Allergy (Verified 05/29/24 07:23) Medications ???Medication ???Instructions ???Recorded ???Confirmed ???Type multivit-min no.71-iron fum 28 cap PO 02/23/24 05/29/24 History mg-folate no.1 1 mg-dha 300 mg capsule (PNV-Mclean) Last Menstrual Period: 12/21/23 Do you think of yourself as: straight/heterosexual Current gender identity: female Zika: Zika virus screening: Negative : No PFSH PFSH Medical History Seasonal allergies History of frequent headaches Surgical History Reed teeth extracted Family History Grandmother CVA (cerebral vascular accident) Maternal Diabetes Maternal Grandfather Myocardial infarction, Onset Age: 54 Maternal Social History adopted: No household members: spouse housing: house number of children: 0 current occupational status: employed current occupation: [employer] current occupational exposures/hazards: No pets and animals: [...] physical activity do you participate in: none ganesh/pentecostalism: Catholic seatbelt use: always do you feel safe [...] -???-???-???-???-???- ???-???- (more content not included)... Normal [facility] Laboratory - Chemistry and C hemistry - challengeOrdered By: Shea Rodriguez on 05-02-2024 Glucose Ql (U) Negative [facility] Laboratory - UrinalysisOrder ed By: Shea Rodriguez on 05-02-2024 Protein Ql (U) Negative [facility] [employer] Paste Mixer Operator Office Visit Reporton 05-02-2024 Carbon Paste Mixer Operator Office Visit Report [facility] [address], [address] [place] [address] OFFICE VISIT Date of Service: 05/02/24 MR#: [id number] Acct: [id number] Name: SAMEER CABALLERO Rep #: [id number] : 1990 Provider: NERY hsieh Age/Sex: 33/F [place] [facility] [place]: Signed Intake Vital Signs 03/01/24 14:33 04/02/24 09:19 05/02/24 08:23 Height 5 ft 5 in 5 ft 5 in 5 ft 5 in Weight: 278 lb 2 oz BMI 46.3 BP 126/84 H Intake Visit Reasons: 18 wk ob 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: 18 Week OB Electrician Constructor Supervisor Required: No Is patient in pain?: No Allergies No Known Allergies Allergy (Verified 05/02/24 08:23) Medications ???Medication ???Instructions ???Recorded ???Confirmed ???Type multivit-min no.71-iron fum 28 cap PO 02/23/24 05/02/24 History mg-folate no.1 1 mg-dha 300 mg capsule (PNV-Mclean) Last Menstrual Period: 12/21/23 Zika: Zika virus screening: Negative : No PFSH PFSH Medical History Seasonal allergies History of frequent headaches Surgical History Reed teeth extracted Family History Grandmother CVA (cerebral vascular accident) Maternal Diabetes Maternal Grandfather Myocardial infarction, Onset Age: 54 Maternal Social History adopted: No household members: spouse housing: house number of children: 0 current occupational status: employed current occupation: [employer] current occupational exposures/hazards: No pets and animals: Yes pets and animals: dog(s) history of recent travel: Yes [place]) out of state: Yes [...] physical activity do you participate in: none ganesh/pentecostalism: Catholic seatbelt use: always do you feel safe [...] to care (more content not included)... Normal [facility] Hemoglobin A1con 04-03-2024 HbA1c (Bld) [Mass fraction] 5.2 % Low <=5.6 [facility] Comment on above: Performed By: #### L 509.8002, L100.0100, L3890.6006, L501.0250 #### [facility] Laboratory [address] [place], [address] L3890.6102on 04-03-2024 HEP B Surf Ag Non-Reactive Normal Nonreactive [facility] Comment on above: Result Comment: Reac tive: Presumptive evidence of HBV. Repeatedly reactive samples must be confirmed using a neutralization test (Elecsys HBsAg Confirmatory Test) Non-Reactive: HBsAg not detected; does not exclude the possibility of exposure to HBV Performed By: #### L 509.8002, L100.0100, L3890.6006, L501.0250 #### [facility] [address] [place], [address] Absolute lymphocyte countOrd ered By: Earline Andrade on 04-02-2024 Lymphocytes Auto (Unsp spec) [#/Vol] 2.43 10*3/uL 0.83-4.51 [facility] Absolute neutrophil countOrd ered By: Earline Andrade on 04-02-2024 Neutrophils (Bld) [#/Vol] 6.7 10*3/uL 2.0-7.7 [facility] Automated lymphocyte count a s percentage of total leukocytesOrdered By: Earline Andrade on 04-02-2024 Lymphocytes/100 WBC Auto (Unsp spec) 24.8 % 19-41 [facility] Basophil percentageOrdered B y: Earline Andrade on 04-02-2024 Basophils/100 WBC (Bld) 0.3 % 0-1 [facility] CBC W/Diff, Automatedon 03-10 Absolute Lymph 2.43 X10 3/uL Normal 0.83-4.51 [facility] Comment on above: Performed By: #### L 509.8002, BTS, L900.0098, L3890.6102, L100.0100, L501.9985, L3890.6301, L3890.6006, L509.4006 #### [facility] [address] [place], [address] Absolute Neut 6.7 X10 3/uL Normal 2.0-7.7 [facility] Comment on above: Performed By: #### L 509.8002, BTS, L900.0098, L3890.6102, L100.0100, L501.9985, L3890.6301, L3890.6006, L509.4006 #### [facility] [address] [place], [address] Basophils/100 WBC (Bld) 0.3 % Normal 0-1 [facility] Comment on above: Performed By: #### L 509.8002, BTS, L900.0098, L3890.6102, L100.0100, L501.9985, L3890.6301, L3890.6006, L509.4006 #### [facility] [address] [place], [address] Eosinophils/100 WBC (Bld) 1.3 % Normal 0-5 [facility] Comment on above: Performed By: #### L 509.8002, BTS, L900.0098, L3890.6102, L100.0100, L501.9985, L3890.6301, L3890.6006, L509.4006 #### [facility] [address] [place], [address] Erythrocyte distribution width (RBC) [Ratio] 13.6 % Normal 11.6-14.6 [facility] Comment on above: Performed By: #### L 509.8002, BTS, L900.0098, L3890.6102, L100.0100, L501.9985, L3890.6301, L3890.6006, L509.4006 #### [facility] [address] [facility] [place], [address] Hematocrit (Bld) [Volume fraction] 38.5 % Normal 37-47 [facility] Comment on above: Performed By: #### L 509.8002, BTS, L900.0098, L3890.6102, L100.0100, L501.9985, L3890.6301, L3890.6006, L509.4006 #### [facility] [address] [place], [address] Hemoglobin (Bld) [Mass/Vol] 13.0 g/dL Normal 12.0-15.0 [facility] Comment on above: Performed By: #### L 509.8002, BTS, L900.0098, L3890.6102, L100.0100, L501.9985, L3890.6301, L3890.6006, L509.4006 #### [facility] [address] [place], [address] IG% 0.300 Normal 0.0-0.9 [facility] Comment on above: Result Comment: IG% - Immature Granulocytes (promyelocytes, myelocytes and metamyelocytes) > 1% indicates that a LEFT SHIFT is Present. Performed By: #### L 509.8002, BTS, L900.0098, L3890.6102, L100.0100, L501.9985, L3890.6301, L3890.6006, L509.4006 #### [facility] [address] [place], [address] Lymphocytes/100 WBC (Bld) 24.8 % Normal 19-41 [facility] Comment on above: Performed By: #### L 509.8002, BTS, L900.0098, L3890.6102, L100.0100, L501.9985, L3890.6301, L3890.6006, L509.4006 #### [facility] [address] [place], [address] MCH (RBC) [Entitic mass] 28.1 pg Normal 27.0-32.0 [facility] Comment on above: Performed By: #### L 509.8002, BTS, L900.0098, L3890.6102, L100.0100, L501.9985, L3890.6301, L3890.6006, L509.4006 #### [facility] [address] [place], [address] MCHC (RBC) [Mass/Vol] 33.8 g/dL Normal 32-[address] [facility] Comment on above: Performed By: #### L 509.8002, BTS, L900.0098, L3890.6102, L100.0100, L501.9985, L3890.6301, L3890.6006, L509.4006 #### [facility] [address] [place], [address] MCV (RBC) [Entitic vol] 83.2 fL Normal 81-99 [facility] Comment on above: Performed By: #### L 509.8002, BTS, L900.0098, L3890.6102, L100.0100, L501.9985, L3890.6301, L3890.6006, L509.4006 #### [facility] [address] [place], [address] Monocytes/100 WBC (Bld) 5.2 % Normal 0-10 [facility] Comment on above: Performed By: #### L 509.8002, BTS, L900.0098, L3890.6102, L100.0100, L501.9985, L3890.6301, L3890.6006, L509.4006 #### [facility] [address] [place], [address] Neutrophils/100 WBC (Bld) 68.1 % Normal 47-70 [facility] Comment on above: Performed By: #### L 509.8002, BTS, L900.0098, L3890.6102, L100.0100, L501.9985, L3890.6301, L3890.6006, L509.4006 #### [facility] [address] [place], [address] Nucleated RBC (Bld) [#/Vol] 0 10*3/uL Normal 0-5 [facility] Comment on above: Performed By: #### L 509.8002, BTS, L900.0098, L3890.6102, L100.0100, L501.9985, L3890.6301, L3890.6006, L509.4006 #### [facility] [address] [place], [address] Platelet mean volume (Bld) [Entitic vol] 11.4 fL Normal 6.2-12.0 [facility] Comment on above: Performed By: #### L 509.8002, BTS, L900.0098, L3890.6102, L100.0100, L501.9985, L3890.6301, L3890.6006, L509.4006 #### [facility] [address] [place], [address] ( Platelets (Bld) [#/Vol] 269 10*3/uL Normal 150-450 [facility] Comment on above: Performed By: #### L 509.8002, BTS, L900.0098, L3890.6102, L100.0100, L501.9985, L3890.6301, L3890.6006, L509.4006 #### [facility] [address] [place], [address] (935 RBC (Bld) [#/Vol] 4.63 10*6/uL Normal 4.2-5.4 [facility] Comment on above: Performed By: #### L 509.8002, BTS, L900.0098, L3890.6102, L100.0100, L501.9985, L3890.6301, L3890.6006, L509.4006 #### [facility] [address] [place], [address] ( RDW SD 41.1 fl Normal 35.1-43.9 [facility] Comment on above: Performed By: #### L 509.8002, BTS, L900.0098, L3890.6102, L100.0100, L501.9985, L3890.6301, L3890.6006, L509.4006 #### [facility] [address] [place], [address] ( WBC (Bld) [#/Vol] 9.8 10*3/uL Normal 4.4-11.0 [facility] Comment on above: Performed By: #### L 509.8002, BTS, L900.0098, L3890.6102, L100.0100, L501.9985, L3890.6301, L3890.6006, L509.4006 #### [facility] [address] [place], [address] Eosinophil percentageOrdered By: Earline Andrade on 04-02-2024 Eosinophils/100 WBC (Bld) 1.3 % 0-5 [facility] Erythrocyte distribution wid th ratioOrdered By: Earline Andrade on 04-02-2024 Erythrocyte distribution width (RBC) [Ratio] 13.6 % 11.6-14.6 [facility] Erythrocyte distribution wid th standard deviationOrdered By: Earline Andrade on 04-02-2024 Erythrocyte distribution width (RBC) [Entitic vol] 41.1 fL 35.1-43.9 [facility] Erythrocyte distribution width (RBC) [Ratio] 41.1 fl 35.1-43.9 [facility] HBV surface Ag Ql (S)Ordered By: Earline Andrade on 04-02-2024 Hepatitis B Surface Antigen Non-Reactive Nonreactive [facility] Comment on above: Reactive: Presumptiv e evidence of HBV. Repeatedly reactive samples must be confirmed using a neutralization test ([employer]ys HBsAg Confirmatory Test)Non-Reactive: HBsAg not detected; does not exclude the possibility of exposure to HBV Hematocrit Auto (Bld) [Volum e fraction]Ordered By: Earline Andrade on 04-02-2024 Hematocrit (Bld) [Volume fraction] 38.5 % 37-47 [facility] Hemoglobin A1c percentageOrd ered By: Earline Andrade on 04-02-2024 HbA1c (Bld) [Mass fraction] 5.2 % Low >5.7 [facility] Hemoglobin measurementOrdere d By: Earline Andrade on 04-02-2024 Hemoglobin (Bld) [Mass/Vol] 13.0 g/dL 12.0-15.0 [facility] Hepatitis C antibodyOrdered By: Earline Andrade on 04-02-2024 Hepatitis C Antibody Non-Reactive Nonreactive [facility] Comment on above: Reactive: Presumptiv e evidence of antibodies to HCV. Follow CDC recommendations for supplemental testing.Non-Reactive: Antibodies to HCV were not detected; does not exclude the possibility of exposure to HCVReactive Results are presumptive evidence of antibodies to HCV. Follow CDC recommendations for supplemental testing.Order confirmation testing: HCV Quant by PCR testing - HCVPCR #[id number] Non Reactive: < 0.8 Equivocal: >/= 0.8 to < 1.0 Reactive: >/= 1.0The CDC requires that a reactive/equivocal HCV antibody result be sent out for confirmation. HCV Quant by PCR testing. Immature granulocytes/100 WB C Auto (Bld)Ordered By: Earline Andrade on 04-02-2024 Immature granulocytes/100 WBC (Bld) 0.300 % 0.0-0.9 [facility] Comment on above: IG% - Immature Granu locytes (promyelocytes, myelocytes and metamyelocytes) > 1% indicates that a LEFT SHIFT is Present. L3890.6006on 04-02-2024 HIV Non-Reactive Normal Nonreactive [facility] Comment on above: Result Comment: Non- Reactive Reactive Repeatedly reactive samples must be confirmed according to CDC recommended confirmatory algorithms. The subresults for either HIVAG or AHIV can be used as an aid in the selection of the confirmation algorithm for reactive samples. Send out specimens with Reactive results to [facility] for confirmation. Order the HIV antibody detection and differentiation: lc#[id number] Performed By: #### L 509.8002, L100.0100, L3890.6006, L501.0250 #### [facility] Laboratory [facility] [place], [address] L3890.6301on 04-02-2024 Hepatitis C Ab Non-Reactive Normal Nonreactive [facility] Comment on above: Result Comment: Reac tive: Presumptive evidence of antibodies to HCV. Follow CDC recommendations for supplemental testing. Non-Reactive: Antibodies to HCV were not detected; does not exclude the possibility of exposure to HCV Reactive Results are presumptive evidence of antibodies to HCV. Follow CDC recommendations for supplemental testing. Order confirmation testing: HCV Quant by PCR testing - HCVPCR #[id number] Non Reactive: < 0.8 Equivocal: >/= 0.8 to < 1.0 Reactive: >/= 1.0 The CDC requires that a reactive/equivocal HCV antibody result be sent out for confirmation. HCV Quant by PCR testing. Performed By: #### L 509.8002, L100.0100, L3890.6006, L501.0250 #### [facility] [address] [place], [address] L509.4006on 04-02-2024 Rubella IgG REAC Normal Nonreactive [facility] Comment on above: Result Comment: Anti body Result: Interpretation Non-Reactive: Non-Immune Reactive: Immune The following results were obtained with the [employer]ys Rubella IgG assay. Results from assays of other manufacturers cannot be used interchangeably. Performed By: #### L 509.8002, BTS, L900.0098, L3890.6102, L100.0100, L501.9985, L3890.6301, L3890.6006, L509.4006 #### [facility] [address] [facility] [place], [address] L509.8002on 04-02-2024 Syphilis Abs Non-Reactive Normal Nonreactive [facility] Comment on above: Performed By: #### L 509.8002, L100.0100, L3890.6006, L501.0250 #### [facility] [address] [facility] [place], [address] Laboratory - Chemistry and C hemistry - challengeOrdered By: Maris Aragon on 04-02-2024 Glucose Ql (U) Negative [facility] Laboratory - Microbiology an d Antimicrobial susceptibilityOrdered By: Earline Andrade on 04-02-2024 HBV surface Ag Ql (S) Non-Reactive Nonreactive [facility] Comment on above: Reactive: Presumptiv e evidence of HBV. Repeatedly reactive samples must be confirmed using a neutralization test (Ele[employer]ys HBsAg Confirmatory Test)Non-Reactive: HBsAg not detected; does not exclude the possibility of exposure to HBV Laboratory - UrinalysisOrder ed By: Maris Aragon on 04-02-2024 Protein Ql (U) Negative [facility] Lymphocytes Auto (Unsp spec) [#/Vol]Ordered By: Earline Andrade on 04-02-2024 Lymphocytes (Bld) [#/Vol] 2.43 10*3/uL 0.83-4.51 [facility] Lymphocytes/100 WBC Auto (Un sp spec)Ordered By: Earline Andrade on 04-02-2024 Lymphocytes/100 WBC (Bld) 24.8 % 19-41 [facility] MCV (mean corpuscular volume ) determinationOrdered By: Earline Andrade on 04-02-2024 MCV (RBC) [Entitic vol] 83.2 fL 81-99 [facility] Mean corpuscular hemoglobin (MCH) determinationOrdered By: Earline Andrade on 04-02-2024 MCH (RBC) [Entitic mass] 28.1 pg 27.0-32.0 [facility] Mean corpuscular hemoglobin concentration (MCHC) determinationOrdered By: Earline Andrade on 04-02-2024 MCHC (RBC) [Mass/Vol] 33.8 g/dL 32-[address] [facility] Mean platelet volume determi nationOrdered By: Earline Andrade on 04-02-2024 Platelet mean volume (Bld) [Entitic vol] 11.4 fL 6.2-12.0 [facility] Miscellaneous procedureOrder ed By: Earline Andrade on 04-02-2024 Miscellaneous Test Comment SEE SCANNED REPORT [facility] Monocyte percentageOrdered B y: Earline Andrade on 04-02-2024 Monocytes/100 WBC (Bld) 5.2 % 0-10 [facility] NATERAon 04-02-2024 NATURA SEE SCANNED REPORT Normal [facility] Comment on above: Performed By: #### L 509.8002, BTS, L900.0098, L3890.6102, L100.0100, L501.9985, L3890.6301, L3890.6006, L509.4006 #### [facility] [address] [place], [address] Neutrophil percentageOrdered By: Earline Andrade on 04-02-2024 Neutrophils/100 WBC (Bld) 68.1 % 47-70 [facility] No Panel InformationOrdered By: Earline Andrade on 04-02-2024 HIV (1&2) Antibody Non-Reactive Nonreactive [facility] Comment on above: Non-ReactiveReactive Repeatedly reactive samples must be confirmed according to CDC recommended confirmatory algorithms. The subresults for either HIVAG or AHIV can be used as an aid in the selection of the confirmation algorithm for reactive samples.Send out specimens with Reactive results to [facility] for confirmation.Order the HIV antibody detection and differentiation: #[id number] Rubella IgG Antibody REAC Nonreactive [facility] Comment on above: Antibody Result: Int erpretationNon-Reactive: Non-ImmuneReactive: ImmuneThe following results were obtained with the Ele[employer]ys Rubella IgG assay. Results from assays of other manufacturers cannot be used interchangeably. Syphilis Total Antibody Non-Reactive Nonreactiv e [facility] Nucleated red blood cell per centageOrdered By: Earline Andrade on 04-02-2024 Nucleated RBC/100 WBC (Bld) [Ratio] 0 % 0-5 [facility] [employer] Operator Office Visit Reporton 04-02-2024 Carbon Paste Mixer Operator Office Visit Report [facility] [address], [address] [place] [address] OFFICE VISIT Date of Service: 04/02/24 MR#: [id number] Acct: [id number] Name: SAMEER CABALLERO Rep #: [id number] : 1990 Provider: Dr. Maris yang MD Age/Sex: 33/F [place] [facility] [place]: Signed Intake Vital Signs 12/25/23 07:48 03/01/24 14:33 04/02/24 09:19 Height 5 ft 5 in 5 ft 5 in 5 ft 5 in Weight: 265 lb 8 oz BMI 44.1 BP 133/86 H Intake Visit Reasons: 14wk OB Electrician Constructor Supervisor Required: No Is patient in pain?: No Feel stressed/tense/nervou s/anxious/difficulty sleeping: not at all Allergies No Known Allergies Allergy (Verified 04/02/24 09:20) Medications ???Medication ???Instructions ???Recorded ???Confirmed ???Type multivit-min no.71-iron fum 28 cap PO 02/23/24 04/02/24 History mg-folate no.1 1 mg-dha 300 mg capsule (PNV-Mclean) Last Menstrual Period: 12/21/23 Zika: Zika virus screening: Negative : No Have you fallen in the past year?: No PFSH PFSH Medical History Seasonal allergies History of frequent headaches Surgical History Reed teeth extracted Family History Grandmother CVA (cerebral vascular accident) Maternal Diabetes Maternal Grandfather Myocardial infarction, Onset Age: 54 Maternal Social History adopted: No household members: spouse housing: house number of children: 0 current occupational status: employed current occupation: [employer] current occupational exposures/hazards: No pets and animals: Yes pets and animals: dog(s) history of recent travel: Yes ([facility] in January) out of state: Yes [...] physical activity do you participate in: none ganesh/pentecostalism: Catholic seatbelt use: always do you feel safe [...] use, Childb (more content not included)... Normal [facility] Platelet countOrdered By: Ishan Andrade on 04-02-2024 Platelets (Bld) [#/Vol] 269 10*3/uL 150-450 [facility] RBC Auto (Bld) [#/Vol]Ordere d By: Earline Andrade on 04-02-2024 RBC (Bld) [#/Vol] 4.63 10*6/uL 4.2-5.4 [facility] Type AND Screenon 04-02-2024 Ab SCREEN GEL Negative Normal [facility] Comment on above: Order Comment: PN Performed By: #### L 509.8002, BTS, L900.0098, L3890.6102, L100.0100, L501.9985, L3890.6301, L3890.6006, L509.4006 #### [facility] [address] [place], [place], [id number] White blood cell (WBC) count Ordered By: Earline Andrade on 04-02-2024 WBC (Bld) [#/Vol] 9.8 10*3/uL 4.4-11.0 [facility] Chlamydia/GC MICAH aptimaon CHLAMY,NUC ACID Negative Normal Negative [facility] Comment on above: Performed By: #### L 509.8002, L100.0100, L3890.6006, L501.0250 #### [facility] [address] [place], [place], [address] GC BY NUC ACID Negative Normal Negative [facility] Comment on above: Result Comment: Perf ormed at: =G - [facility] [address] [id number] Hardwood Floor Sander: Lori Coppola MD, Phone: [phone] Performed By: #### L 509.8002, L100.0100, L3890.6006, L501.0250 #### [facility] [address] [place], [address] Urine Cultureon 03-02-2024 URC Culture exhibits no growth. Normal [facility] Comment on above: Performed By: #### L 509.8002, L100.0100, L3890.6006, L501.0250 #### [facility] [address] [place], [address] C. trachomatis rRNA MICAH+prob e Ql (Unsp spec)Ordered By: Earline Andrade on 03-01-2024 Chlamydia DNA (MICAH) Negative Negative [facility] Chlamydia trachomatis rRNA d etection by probe and target amplification methodOrdered By: Earline Andrade on 03-01-2024 C. trachomatis rRNA MICAH+probe Ql (Unsp spec) Negative Negative [facility] Neisseria gonorrhoeae nuclei c acid detection by amplified probe techniqueOrdered By: Earline Andrade on 03-01-2024 N. gonorrhoeae DNA MICAH+probe Ql (Unsp spec) Negative Negative [facility] Comment on above: Performed at: =G - [facility] [address] [id number] Director: Lori Coppola MD, Phone: [phone] Carbon Paste Mixer Operator Office Visit Reporton 03-01-2024 Carbon Paste Mixer Operator Office Visit Report [facility]'[address], [address] [place] [address] OFFICE VISIT Date of Service: 03/01/24 MR#: [id number] Acct: [id number] Name: SAMEER CABALLERO Rep #: [id number] : 1990 Provider: MARIO Fournier ams Age/Sex: 33/F Location[place] [facility] [place] Status: Signed Intake Vital Signs 12/25/23 07:48 03/01/24 14:33 Height 5 ft 5 in 5 ft 5 in Weight: 268 lb 267 lb 2 oz BMI 44.6 44.4 BP 132/85 H 137/83 H 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, LMP 12/20, LORY 09/26/24 Electrician Constructor Supervisor Required: No Is patient in pain?: No Allergies No Known Allergies Allergy (Verified 03/01/24 14:31) Medications ???Medication ???Instructions ???Recorded ???Confirmed ???Type multivit-min no.71-iron fum 28 cap PO 02/23/24 02/23/24 History mg-folate no.1 1 mg-dha 300 mg capsule (PNV-Mclean) Last Menstrual Period: 12/21/23 Zika: Zika virus screening: Negative : Yes Have you fallen in the past year?: No PFSH PFSH Medical History Seasonal allergies History of frequent headaches Surgical History Reed teeth extracted Family History Grandmother CVA (cerebral vascular accident) Maternal Diabetes Maternal Grandfather Myocardial infarction, Onset Age: 54 Maternal Social History adopted: No household members: spouse housing: house number of children: 0 service: No current occupational status: employed current occupation: [employer] current occupational exposures/hazards: No pets and animals: [...] physical activity do you participate in: none ganesh/pentecostalism: Catholic seatbelt use: always do you feel safe at home: Yes additional social history: - Cm - hankins History 1 Elective abortions Hx [...] Genetic Disease: (more content not included)... Normal [facility] Urine cultureOrdered By: Riccardo Andrade on 03-01-2024 Bacteria identified Cx Nom (U) Culture exhibits no growth. [facility] PAP IG HPV APTIMA 16/18,45on 01-01-2024 ADEQ Comment Normal . [facility] Comment on above: Order Comment: Speci men Comment: [id number] Specimen Comment: Source.............Cervix Specimen Comment: No. of containers..01 ThinPrep Vial Result Comment: Sati sfactory for evaluation. Endocervical and/or squamous metaplastic cells (endocervical component) are present. Performed By: #### L 7400.0280 #### [facility] [address] [place], [address] COMM . Normal . [facility] Comment on above: Order Comment: Speci men Comment: [id number] Specimen Comment: Source.............Cervix Specimen Comment: No. of containers..01 ThinPrep Vial Performed By: #### L 7400.0280 #### [facility] [address] [place], [place], [address] COMMENT Comment Normal . [facility] Comment on above: Order Comment: Speci men Comment: [id number] Specimen Comment: Source.............Cervix Specimen Comment: No. of containers..01 ThinPrep Vial Result Comment: This liquid based ThinPrep(R) pap test was screened with the use of an image guided system. Performed By: #### L 7400.0280 #### [facility] [address] [place], [place], [address] DIAG Comment Normal . [facility] Comment on above: Order Comment: Speci men Comment: [id number] Specimen Comment: Source.............Cervix Specimen Comment: No. of containers..01 ThinPrep Vial Result Comment: NEGA TIVE FOR INTRAEPITHELIAL LESION OR MALIGNANCY. Performed By: #### L 7400.0280 #### [facility] [address] [place], [place], [address] HPV APTIMA, HR Positive Abnormal Negative [facility] Comment on above: Order Comment: Speci men Comment: [id number] Specimen Comment: Source.............Cervix Specimen Comment: No. of containers..01 ThinPrep Vial Result Comment: This nucleic acid amplification test detects fourteen high- risk HPV types (16,18,31,33,35,39,45,51,52,56,58,59,66,68) without differentiation. Performed By: #### L 7400.0280 #### [facility] [address] [place], [address] HPV Lizette 18,45 Positive Abnormal Negative [facility] Comment on above: Order Comment: Speci men Comment: [id number] Specimen Comment: Source.............Cervix Specimen Comment: No. of containers..01 ThinPrep Vial Result Comment: Perf ormed at: [facility] [address] [place], [place] [id number] Hardwood Floor Sander: Alexandro Burrell PhD, Phone: [phone] Performed at: [address] [id number] Hardwood Floor Sander: Lori Coppola MD, Phone: [phone] Performed at: =[address] [id number] Hardwood Floor Sander: Lori Coppola MD, Phone: [phone] Performed By: #### L 7400.0280 #### [facility] [address] [place], [address] HPV Lizette Rfx Comment Normal . [facility] Comment on above: Order Comment: Speci men Comment: [id number] Specimen Comment: Source.............Cervix Specimen Comment: No. of containers..01 ThinPrep Vial Result Comment: Yecenia chávez, see HPV Genotype results. Performed By: #### L 7400.0280 #### [facility] [address] [place], [address] HPV Genotype 16 Negative Normal Negative [facility] Comment on above: Order Comment: Speci men Comment: [id number] Specimen Comment: Source.............Cervix Specimen Comment: No. of containers..01 ThinPrep Vial Performed By: #### L 7400.0280 #### [facility] [address] [place], [address] PAPSMR Comment Normal . [facility] Comment on above: Order Comment: Speci men Comment: [id number] Specimen Comment: Source.............Cervix Specimen Comment: No. of [...] occur. Performed By: #### L 7400.0280 #### [facility] [address] [place], [place], [address] PERFORM Comment Normal . [facility] Comment on above: Order Comment: Speci men Comment: [id number] Specimen Comment: Source.............Cervix Specimen Comment: No. of containers..01 ThinPrep Vial Result Comment: Maritza Silva, Recoater (ASCP) Performed By: #### Rajesh 7400.0280 #### [facility] [address] [place], [place], [id number] Knifeman Cyto stain Nom (C vx/Vag) [ID]Ordered By: Laura Lechuga on 12-25-2023 Pap Smear Performed By Comment . [facility] Comment on above: Cata Silva, Cyto technologist (ASCP) Cytology report Cyto stain D oc (Cvx/Vag)Ordered By: Laura Lechuga on 12-25-2023 Thin Prep Pap Smear Comment . [facility] Comment on above: The Pap smear is [...] 12-25-2023 HPV Genotype Special Info Comment . [facility] Comment on above: Criteria met, see HP V Genotype results. HPV 16 DNA Probe+sig amp Ql (Cvx)Ordered By: Laura Lechuga on 12-25-2023 HPV Type 16 Comment Negative Negative [facility] HPV 16+18+31+33+35+39+45+51+ 52+56+58+59+66+68 DNA Probe+sig amp Ql (Cvx)Ordered By: Laura Lechuga on 12-25-2023 Human Papillomavirus High Risk Positive High Negative [facility] Comment on above: This nucleic acid am plification test detects fourteen high-risk HPV types (16,18,31,33,35,39,45,51,52,56,58,59,66,68)without differentiation. HPV E6+E7 mRNA MICAH+probe Ql (Cvx)Ordered By: Laura Lechuga on 12-25-2023 HPV Type 18 Comment Positive High Negative [facility] Comment on above: Performed at: [facility] [employer] [id number] Director: Alexandro Burrell PhD, Phone: [phone] at: - [facility] [id number] Director: Lori Coppola MD, Phone: [phone] at: = - [facility] [id number] Director: Lori Coppola MD, Phone: [phone] Image-guided ThinPrep PapOrd ered By: Laura Lechuga on 12-25-2023 Pap Smear Note Comment . [facility] Comment on above: This liquid based Th inPrep(R) pap test was screened withthe use of an image guided system. Image-guided liquid-based Pa pOrdered By: Laura Lechuga on 12-25-2023 Pap Smear Diagnosis Comment . [facility] Comment on above: NEGATIVE FOR INTRAEP ITHELIAL LESION OR MALIGNANCY. 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 Has not been to a quality tech since 2018ish. She is unsure where this [...] size normal (more content not included)... Normal [facility] Service comment (Unsp spec) [Interp]Ordered By: Laura Lechuga on 12-25-2023 Pap Smear Comment (3) . . [facility] Vital Signs Date Time Vital Sign Value Performing Clinician Alber olvera 08-19-2024 08:37-0400 Body height 165.1 cm No Primary Care Physician [facility] 08-19-2024 08:37-0400 Body mass index (BMI) [Ratio] 49.6 kg/m2 No Primary Care Physician [facility] 08-19-2024 08:37-0400 Body weight 135.34 kg No Primary Care Physician [facility] 08-19-2024 08:37-0400 Diastolic blood pressure 77 mm[Hg] No Primary Care Physician [facility] 08-19-2024 08:37-0400 Systolic blood pressure 126 mm[Hg] No Primary Care Physician [facility] 08-12-2024 08:11-0400 Body mass index (BMI) [Ratio] 49.4 kg/m2 No Primary Care Physician [facility] 08-12-2024 08:11-0400 Body weight 134.88 kg No Primary Care Physician [facility] 08-12-2024 08:11-0400 Diastolic blood pressure 84 mm[Hg] No Primary Care Physician [facility] 08-12-2024 08:11-0400 Systolic blood pressure 130 mm[Hg] No Primary Care Physician [facility] 07-30-2024 08:28-0400 Body height 165.1 cm No Primary Care Physician [facility] 07-30-2024 08:22-0400 Body mass index (BMI) [Ratio] 48.6 kg/m2 No Primary Care Physician [facility] 07-30-2024 08:22-0400 Body weight 132.44 kg No Primary Care Physician [facility] 07-30-2024 08:22-0400 Diastolic blood pressure 78 mm[Hg] No Primary Care Physician [facility] 07-30-2024 08:22-0400 Systolic blood pressure 118 mm[Hg] No Primary Care Physician [facility] 07-16-2024 15:29-0400 Body height 165.1 cm No Primary Care Physician [facility] 07-16-2024 15:29-0400 Body mass index (BMI) [Ratio] 49.1 kg/m2 No Primary Care Physician [facility] 07-16-2024 15:29-0400 Body weight 133.92 kg No Primary Care Physician [facility] 07-16-2024 15:29-0400 Diastolic blood pressure 74 mm[Hg] No Primary Care Physician [facility] 07-16-2024 15:29-0400 Systolic blood pressure 120 mm[Hg] No Primary Care Physician [facility] 06-24-2024 15:33-0400 Body height 165.1 cm No Primary Care Physician [facility] 06-24-2024 15:31-0400 Body mass index (BMI) [Ratio] 48.4 kg/m2 No Primary Care Physician [facility] 06-24-2024 15:31-0400 Body weight 132.1 kg No Primary Care Physician [facility] 06-24-2024 15:31-0400 Diastolic blood pressure 83 mm[Hg] No Primary Care Physician [facility] 06-24-2024 15:31-0400 Systolic blood pressure 127 mm[Hg] No Primary Care Physician [facility] 05-29-2024 07:25-0400 Body mass index (BMI) [Ratio] 47.5 kg/m2 No Primary Care Physician [facility] 05-29-2024 07:25-0400 Body weight 129.44 kg No Primary Care Physician [facility] 05-29-2024 07:25-0400 Diastolic blood pressure 80 mm[Hg] No Primary Care Physician [facility] 05-29-2024 07:25-0400 Systolic blood pressure 120 mm[Hg] No Primary Care Physician [facility] 05-02-2024 08:23-0400 Body mass index (BMI) [Ratio] 46.3 kg/m2 No Primary Care Physician [facility] 05-02-2024 08:23-0400 Body weight 126.15 kg No Primary Care Physician [facility] 05-02-2024 08:23-0400 Diastolic blood pressure 84 mm[Hg] No Primary Care Physician [facility] 05-02-2024 08:23-0400 Systolic blood pressure 126 mm[Hg] No Primary Care Physician [facility] 04-02-2024 09:19-0500 Body height 165.1 cm Laura GABRIEL Work Phone: [facility] 04-02-2024 09:19-0500 Body mass index (BMI) [Ratio] 44.1 kg/m2 Laura Ramirezman STEAMER TENDER-C Work Phone: [facility] 04-02-2024 09:19-0500 Body weight 120.42 kg Laura Jamesman STEAMER TENDER-C Work Phone: [facility] 04-02-2024 09:19-0500 Diastolic blood pressure 86 mm[Hg] Laura Ramirezman STEAMER TENDER-C Work Phone: [facility] 04-02-2024 09:19-0500 Systolic blood pressure 133 mm[Hg] Laura Ramirezman STEAMER TENDER-C Work Phone: [facility] 03-01-2024 14:33-0500 Body mass index (BMI) [Ratio] 44.4 kg/m2 Laura Ramirezman STEAMER TENDER-C Work Phone: [facility] 03-01-2024 14:33-0500 Body weight 121.16 kg Laura Ramirezman STEAMER TENDER-C Work Phone: [facility] 03-01-2024 14:33-0500 Diastolic blood pressure 83 mm[Hg] Laura Ramirezman STEAMER TENDER-C Work Phone: [facility] 03-01-2024 14:33-0500 Systolic blood pressure 137 mm[Hg] Laura Ramirezman STEAMER TENDER-C Work Phone: [facility] 12-25-2023 07:48-0500 Body mass index (BMI) [Ratio] 44.6 kg/m2 Laura Ramirezman STEAMER TENDER-C Work Phone: [facility] 12-25-2023 07:48-0500 Body weight 121.56 kg Laura Ramirezman STEAMER TENDER-C Work Phone: [facility] 12-25-2023 07:48-0500 Diastolic blood pressure 85 mm[Hg] Laura Ramirezman STEAMER TENDER-C Work Phone: [facility] 12-25-2023 07:48-0500 Systolic blood pressure 132 mm[Hg] Laura Ramirezman STEAMER TENDER-C Work Phone: [facility] Encounters Encounter Date Encounter Type Care Provider Facility Start: 08-21-2024 ambulatory No Primary Car e Physician Facility:[facility] Start: 08-19-2024 End: 08-19-[address] Rhina Sweeney DO -[facility] Work Phone: Start: 08-19-2024 End: 08-19-2024 ambulatory No Primary Care Physician -[facility] Start: 08-12-2024 End: 08-12-[address] Rhina Sweeney DO -[facility] Work Phone: Start: 08-12-2024 End: 08-12-2024 ambulatory No Primary Care Physician Facility:[facility] Start: 07-30-2024 End: 07-30-2024 Patient encounter procedure Shea Rodriguez STEAMER TENDER-C -[facility] Work Phone: Start: 07-30-2024 End: 07-30-2024 ambulatory No Primary Care Physician [facility] Work Phone: Start: 07-22-2024 End: 07-22-2024 ambulatory No Primary Care Physician [facility] Work Phone: Start: 07-22-2024 End: 07-22-2024 Patient encounter procedure Shea Rodriguez STEAMER TENDER-C -[facility] Work Phone: Start: 07-22-2024 End: 07-22-2024 ambulatory No Primary Care Physician Facility:[facility] Start: 07-16-2024 End: 07-16-2024 Patient encounter procedure Shea Rodriguez STEAMER TENDER-C -[facility] Work Phone: Start: 07-16-2024 End: 07-16-2024 ambulatory No Primary Care Physician [facility] Work Phone: Start: 07-03-2024 End: 07-03-2024 ambulatory No Primary Care Physician [facility] Work Phone: Start: 07-03-2024 End: 07-03-[address] [facility] Work Phone: Start: 07-03-2024 End: 07-03-2024 ambulatory No Primary Care Physician Facility:[facility] Start: 06-24-2024 End: 06-24-[address] Rhina Sweeney DO -[facility] Work Phone: Start: 06-24-2024 End: 06-24-2024 ambulatory No Primary Care Physician [facility] Work Phone: Start: 06-24-2024 End: 06-24-2024 ambulatory No Primary Care Physician Facility:[facility] Start: 05-29-2024 End: 05-29-2024 Patient encounter procedure Earline Andrade CNM -[facility] Start: 05-29-2024 End: 05-29-2024 ambulatory No Primary Care Physician Facility:[facility] Start: 05-23-2024 End: 05-23-2024 ambulatory MARIS ARAGON [facility] Start: 05-07-2024 End: 05-07-2024 ambulatory MD NO PRIMARY CARE [facility] Start: 05-02-2024 End: 05-02-2024 Patient encounter procedure Shea GABRIEL -[facility] Work Phone: Start: 05-02-2024 End: 05-02-2024 ambulatory No Primary Care Physician Facility:[facility] Start: 04-02-2024 End: 04-02-[address] Maris Aragon MD -[facility] Work Phone: Start: 04-02-2024 End: 04-02-2024 ambulatory Laura GABRIEL Work Phone: [facility] Work Phone: Start: 04-02-2024 End: 04-02-2024 ambulatory No Primary Care Physician Facility:[facility] Start: 03-01-2024 End: 03-01-2024 Patient encounter procedure Earline Andrade CNM -[facility] Work Phone: Start: 03-01-2024 End: 03-01-2024 Patient encounter [facility] Work [facility]: Start: 03-01-2024 End: 03-01-2024 ambulatory No Primary Care Physician Facility:[facility] Start: 03-01-2024 End: 03-01-2024 ambulatory No Primary Care Physician Facility:[facility] Start: 12-25-2023 End: 12-25-2023 Patient encounter procedure Laura GABRIEL -[facility] Work Phone: Start: 12-25-2023 End: 12-25-2023 Patient encounter procedure Laura GABRIEL -[facility] Start: 12-25-2023 End: 12-25-2023 Patient encounter status Laura GABRIEL [facility] Start: 12-25-2023 End: 12-25-2023 ambulatory Laura Lechuga Facility:[facility] Start: 12-25-2023 End: 12-25-2023 ambulatory Laura Lechuga Facility:[facility] Procedures Date Procedure Procedure Detail [...] HCV Quant by PCR testing - HCVPCR #[id number] Non Reactive: < 0.8 Equivocal: >/= 0.8 [...] W Auto Different ial panel - Blood [facility] Start: 06-24-2024 Measurement of gluco se 2 hours after glucose challenge for glucose tolerance test [facility] Start: 06-24-2024 Serologic test for syphilis [facility] Start: 06-24-2024 [facility] Erythrocyte mean cor puscular volume determination [facility] Biophysical pr ofile panel US [facility] Hematocrit [Volume F raction] of Blood [facility] Hemoglobin [Mass/volume] in Blood [facility] Leukocytes [#/volume] in Blood [facility] Mean corpuscular hem oglobin concentration determination [facility] Mean corpuscular hem oglobin determination [facility] Neutrophil count [facility] Neutrophil percent d ifferential count [facility] Platelets [#/volume] in Blood [facility] Red blood cell count [facility] Red cell distributio n width determination [facility] Ultrasound scan for growth [facility] Immunizations Immunization Date Immunization Notes [facility] Provider [facility] tetanus toxoid, redu geneva diphtheria toxoid, and acellular pertussis vaccine, adsorbed No Primary Care Physician [facility] Payers Date Payer Category Payer Self-pay 2023 Unknown [id number] 1990 Unknown [id number] 2.16. [id number] 1990 Unknown [id number] 2.16. 840.1.850199.3.579.2.479 Unknown [id number] 2.16.8 40.1.236778.3.579.2.462 Unknown [id number] 2.16.8 40.1.496936.3.579.2.462 Unknown [id number] 2.16.8 40.1.710359.3.579.2.462 Unknown [id number] 2.16.8 40.1.105305.3.579.2.462 Unknown [id number] 2.16.8 40.1.120221.3.579.2.462 Unknown [id number] 2.16.8 40.1.821870.3.579.2.462 Unknown [id number] 2.16.8 40.1.906176.3.579.2.462 Unknown [id number] 2.16.8 40.1.915534.3.579.2.462 Unknown [id number] 2.16.8 40.1.419995.3.579.2.462 Unknown [id number] 2.16.8 40.1.165822.3.579.2.462 Unknown [id number] 2.16.8 40.1.220396.3.579.2.462 Unknown [id number] 2.16.8 40.1.395273.3.579.2.462 Unknown [id number] 2.16.8 40.1.239487.3.579.2.462 Unknown [id number] 2.16.8 40.1.406240.3.579.2.462 Unknown [id number] 2.16.8 40.1.047269.3.579.2.462 Unknown [id number] 2.16.8 [id number] Unknown [id number] Social History Date Type Detail Facility Start: 02-23-2024 End: 05-02-2024 Tobacco smoking status COIS Never smoked tobacco (finding) [facility] Start: 04-14-2024 Sex Male (finding) [facility] Start: 1990 Sex Assigned At Female [facility] Gender Identity Identifies as fe male gender (finding) [facility] Sexual Orientation Heterosexual (finding) [facility] Medical Equipment Procedure Code Equipment [...] Note Facility 07-23-2024 Radiology Diagnostic study note [facility] Imaging Services [address] [place], [place] [address] OB Limited With Biometrics MR#: [id number] Acct: [id number] Name: SAMEER CABALLERO Rep #: [id number] : 1990 F 34 From: Armani Jalloh MD PCP: Care Physician,No Primary Status: REG CLI Study:OB Limited With Biometrics Date of Exam : 07/22/24 Exam# [id number] Ordering Dr: Shea Rodriguez STEAMER TENDER STEAMER TENDER-C PROCEDURE: OB LIMITED WITH BIOMETRICS 07/22/2024 REASON [...] of 33 weeks and 0days. Reading Location: [place] [address] CC: NERY Rodriguez; No Primary Care Physician ~ Strategic Partner Development Manager: Signed [facility] 06-24-2024 Progress note [facility] 06-24-2024 Progress note Note Date/Time June 24, 2024 3:50pm [facility] [address], [address] [place] [address] OFFICE VISIT Date of Service: 06/24/24 MR#: [id number] Acct: [id number] Name: SAMEER CABALLERO Rep #: [id number] : 1990 Provider: Dr. 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 Is patient in pain?: No Allergies No Known Allergies Allergy (Verified 06/24/24 15:31) Medications ?Medication ?Instructions ?Recorded ?Confirmed ?Type multivit-min no.71-iron fum 28 cap PO 02/23/24 5 History mg-folate no.1 1 mg-dha 300 mg capsule (PNV-Mclean) Last Menstrual Period: 12/21/23 Zika: Zika virus screening: Negative : No PFSH PFSH Medical History Seasonal allergies History of frequent headaches Surgical History Reed teeth extracted Family History Grandmother CVA (cerebral vascular accident) Maternal Diabetes Maternal Grandfather Myocardial infarction, Onset Age: 54 Maternal Social History adopted: No household members: spouse housing: house number of children: 0 current occupational status: employed current occupation: [employer] current occupational exposures/hazards: No pets and animals: [...] physical activity do you participate in: none ganesh/pentecostalism: Catholic seatbelt use: always do you feel safe [...] Symptoms of Preeclampsia, Infant Feeding No , [place] Education and Family Medical Leave or Disability [...] Cosigner Signature: Date (if applicable) CC: ~ [email or web address] Work Phone: 1(738) 922-375203-27-2025 Evaluation note* Diagnosis Onset Date Resolution Status [...] of high-risk acute August 19, 2024 8:32am [facility] Work Phone: 1(763) 455-146802-25-2025 Evaluation note* Diagnosis Onset Date Resolution Status [...] high-risk acute June 24, 2024 3 :30pm [facility] Work Phone: 1(157) 934-731002-25-2025 Evaluation note* Diagnosis Onset Date Resolution Status [...] of high-risk acute July 16, 2024 3:24pm [facility] Work Phone: 1([phone]) 669-763102-25-2025 Evaluation note* Diagnosis Onset Date Resolution Status [...] of high-risk acute July 16, 2024 3:24pm [facility] Work Phone: 1([phone]) 750-536902-25-2025 Evaluation note* Diagnosis Onset Date Resolution Status [...] of high-risk acute July 30, 2024 8:19am [facility] Work Phone: 1(790) 304-679501-24-2025 Evaluation note* Diagnosis Onset Date Resolution Status [...] high-risk acute June 24, 2024 3 :30pm [facility] Work Phone: 1(158) 367-795111-18-2024 NotePap Smear Specimen AdequacyNovember 2023 6:44pmComment.Satisfactory for evaluation. Endocervical and/or squamous metaplasticcells (endocervical component)are present.[facility] INTERFACED A#[id number] Children'S Medical CenterComment on above:Satisfactory for evaluation. 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) December 25, 2023 7:33am PAP December 25, [...] 2024 2 :07pm Supervision of normal first [facility] 2024 2:07pm HPV in female April 02, [...] 2024 2 :07pm Supervision of normal first [facility] 2024 2:07pm HPV in female April 02, [...] End: May 02, 2024 Shea Rodriguez NP, STEAMER TENDER-C Attending Provider Active Start: May 02, 2024 [...] 2024 End: July 16, 2024 Shea Rodriguez STEAMER TENDER, STEAMER TENDER-C Attending Provider Active Start: July 16, 2024 End: July 16, 2024 Team Status: Inactive Member Role Status Dates No Primary Care Physician Primary Care Provider Active Start: July 22, 2024 End: July 22, 2024 Shea Rodriguez STEAMER TENDER, STEAMER TENDER-C Attending Provider Active Start: July 22, 2024 End: July 22, 2024 Shea Rodriguez STEAMER TENDER, STEAMER TENDER-C Referring Provider Active Start: July 22, 2024 End: July 22, 2024 Team Status: Inactive Member Role Status Dates No Primary Care Physician Primary Care Provider Active Start: July 30, 2024 End: July 30, 2024 No Primary Care Physician Referring Provider Active Start: July 30, 2024 End: July 30, 2024 Shea Rodriguez STEAMER TENDER, STEAMER TENDER-C Attending Provider Active Start: July 30, 2024 [...] 2024 End: May 02, 2024 Shea Rodriguez STEAMER TENDER, STEAMER TENDER-C Attending Provider Active Start: May 02, 2024 [...] 16, 2024 End: July 16, 2024 Shea [place] STEAMER TENDER, STEAMER TENDER-C Attending Provider Active Start: July 16, 2024 End: July 16, 2024 Team Status: Inactive Member Role/Relationship Status Dates No Primary Care Physician Primary Care Provider Active Start: July 22, 2024 End: July 22, 2024 Shea Rodriguez STEAMER TENDER, STEAMER TENDER-C Attending Provider Active Start: July 22, 2024 End: July 22, 2024 Shea Rodriguez STEAMER TENDER, STEAMER TENDER-C Referring Provider Active Start: July 22, 2024 End: July 22, 2024 Team Status: Inactive Member Role/Relationship Status Dates No Primary Care Physician Primary Care Provider Active Start: July 30, 2024 End: July 30, 2024 No Primary Care Physician Referring Provider Active Start: July 30, 2024 End: July 30, 2024 Shea Rodriguez STEAMER TENDER, STEAMER TENDER-C Attending Provider Active Start: July 30, 2024 [...] section and content) DATE CREATED AUTHOR 05/25/2024 [facility] DATE CREATED AUTHOR 'Linsey SIDHU ATJOSHUA 08/21/2024 [facility] FOR RECORDS PERTAINING TO PATIENTS WHO ARE [...] BE BASED ON THE PRIMARY CLINICAL RECORDS. [facility] [employer] [facility]. provides no warranty or guarantee of the accuracy or completeness of information in this document.
== END | disposition home or self-care (01) ==
PROVIDERS: Referring Provider Nurse Practitioner Women's Health; Visit Provider Nurse Practitioner Women's Health
DX: O26.843 Uterine size-date discrepancy, third trimester (principal); O36.63X0 Maternal care for excessive fetal growth, third trimester, not applicable or unspecified; Z3A.37 37 weeks gestation of pregnancy
CPT/HCPCS: 76816

== ENCOUNTER 2024-08-26 09:37 | Outpatient (CLI) | payer OTHER, SELFPAY ==
[2024-08-26 09:46] VITALS: RESP 16
[2024-08-26 09:47] VITALS: BP 142/75; PULSE 99
[2024-08-26 09:49] VITALS: BMI 50.6
--- NOTE | 2024-08-26 09:53 | US_ITS ---
EXAM: US Biophysical Profile Without Non-Stress Testing CLINICAL INDICATION: NON-REACTIVE NST TECHNIQUE: Real-time ultrasound of the maternal pelvis for biophysical profile evaluation with image documentation. COMPARISON: No relevant prior studies available. FINDINGS: BREATHING MOVEMENTS: Present. Score 2/2. GROSS BODY MOVEMENTS: Present. Score 2/2. TONE: Present. Score 2/2. QUALITATIVE AMNIOTIC FLUID VOLUME: EVI 15.7 cm. Largest fluid is 4.96 cm. FETUS: age 37 weeks and 4 days. HEART RATE: heart rate 150 beats per minute. PRESENTATION: Cephalic presentation. PLACENTA: Posterior placenta. OTHER FINDINGS: LORY 09/26/2024. US/OB Biophysical Prof W/O NST IMPRESSION: No acute findings. Normal biophysical profile with score of 8/8. Reading Location: [facility]
[2024-08-26 10:11] LABS: Color, Urine Yellow (Yellow); Glucose, Dipstick Normal (Normal); Ketone-Dipstick Negative (Negative); Leukocyte Esterase-Dipstick 25 /ul (Negative); Nitrite-Dipstick Negative (Negative); Occult Blood-Urine Negative /ul (Negative); Protein-Dipstick 15 mg/dl (Negative); Specific Gravity, Urine 1.015 (1.002-1.030); Urine Bilirubin Dipstick Negative (Negative)
[2024-08-26 10:22] VITALS: BP 136/62; PULSE 87
--- NOTE | 2024-08-26 11:49 | OB.TRI.PN ---
Progress Notes Date of Service: 08/26/24 Progress Note: Patient presents for triage evaluation secondary to non reactive NST in the office at 35 weeks FHT: 140 Moderate variability reactive no decelerations category I tracing [place]: irregular Contractions Assessment and plan: BPP 8/, Reactive NST, reassuring maternal and status patient discharged to home to follow-up in office at next appt. See problem list details for additional plan information. Laboratory Studies: Laboratory Tests 08/26/24 Range/Units 10:00 Urine Color Yellow (Yellow) Urine Clarity Cloudy (Clear) Urine pH 7.0 (5.0 - 8.0) Ur Specific [place] 1.015 (1.002-1.030) Urine Protein 15 H (Negative) mg/dl Urine Glucose (UA) Normal (Normal) mg/dl Urine Ketones Negative (Negative) mg/dl Urine Occult Blood Negative (Negative) /ul Urine Nitrite Negative (Negative) Urine Bilirubin Negative (Negative) mg/dL Urine Urobilinogen Normal (Normal) mg/dl Ur Leukocyte Esterase 25 H (Negative) /ul Charges/Coding Multi Select Codes Urinary/Genital Urinary/Genital CPT Codes: 75840-64 non-stress test Interp Assessment & Plan (1) Non-stress test nonreactive: COMMENT: in office BPP 8/. reactive on WP. d/c home (2) contractions: (3) LGA (large for gestational age) fetus affecting management of mother: COMMENT: Growth US: 97%ile NST wkly at 34 wk. BS daily WNL. discussed R/B/A of IOL at 39 weeks 97th% overall and 100th% for head, start monitoring glucose levels fasting and 2 hour postprandial. Continue weekly NSTs. estimating to be 10 pounds so it was communicated that we may recommend a section if goes all the way to term. early induction is not always recommended as induction could result in the baby getting stuck. If natural labor happens before 40 weeks we can see how it goes. (4) Abnormal glucose tolerance test during , antepartum: COMMENT: normal 3 hr, however the fasting was elevated. - monitor at home fasting levels: 2 wk of readings WNL except 2 and states high carb snack night prior. Will continue to monitor (5) Supervision of high-risk : QUALIFIERS: Trimester: third trimester Qualified Code(s): O09.93 - Supervision of high risk , unspecified, third trimester COMMENT: PRR, , LORY 09/26/24, Mc (6) Obesity affecting : QUALIFIERS: Trimester: third trimester Obesity type affecting : unspecified obesity Qualified Code(s): O99.213 - Obesity complicating , third trimester COMMENT: HgbA1c 5.2 , BMI 44. 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 Repeat pap 2024 @ pp visit (9) Seasonal allergies:
--- OUTSIDE RECORDS SUMMARY | 2024-08-26 19:31 | XMS RPT_ITS | CCD ---
Author Organization [facility] Care Team Providers Care Medical Billing Supervisor Name Role Phone Ankush CHOPRA-CLaura Attending Provider [phone] Ankush AVENDANOCLaura Referring Provider [phone] Care Physician, No Primary Primary Care Provider Unavailable Care Physician, No Primary Referring Provider Un available Earline Andrade CNM Attending Provider [phone] Earline Andrade CNM Referring Provider [phone] Shmuel JURADO, Dr. Pollock Attending Provider [phone] NO PRIMARY CARE, MD Primary Care Unavailable KEVIN DEE Attending Unavailable MARIS ARAGON Referring Unavailabl e MARIS ARAGON Referring Unavailabl e NO PRIMARY CARE, Primary Care Unavailable TIMOTEO GUERRERO Attending Unavailable Care Physician, No Primary Primary Care Provider Unavailable Shea Farley Attending Provider [phone] Dr. Rhina Sweeney DO Attending Provider Care Physician, No Primary Primary Care Provider Unavailable Care Physician, No Primary Referring Provider Un available Earline Andrade CNM Attending Provider [phone] Earline Andrade CNM Referring Provider [phone] Dr. Rhina Sweeney DO Referring Provider Shea Farley Referring Provider [phone] Care Physician, No Primary Primary Care Provider Unavailable Care Physician, No Primary Referring Provider Un available Earline Andrade CNM Attending Provider [phone] Earline Andrade CNM Referring Provider [phone] Care Physician, No Primary Primary Care Unava ilable Shea Rodriguez Referring Unavailable Shea Rodriguez Attending Unavailable Care Physician, No Primary Primary Care Unava ilable Care Physician, No Primary Referring Unava ilable Earline Andrade Attending Unavailable Care Physician, No Primary Primary Care Unava ilable Care Physician, No Primary Referring Unava ilable Earline Andrade Attending Unavailable Rhina Sweeney Attending Unavailabl e Care Physician, No Primary Primary Care Unava ilable Care Physician, No Primary Referring Unava ilable Care Physician, No Primary Primary Care Unava ilable Shea Rodriguez Attending Unavailable Care Physician, No Primary Referring Unava ilable Care Physician, No Primary Primary Care Unava ilable Shea Rodriguez Attending Unavailable Care Physician, No Primary Referring Unava ilable Care Physician, No Primary Referring Unava ilable Care Physician, No Primary Primary Care Unava ilable Rhina Sweeney Attending Unavailsonu e BarkLaura stern Attending Unavailable Care Physician, No Primary Referring Unava ilable Care Physician, No Primary Primary Care Unava ilable Rhina Sweeney Attending Unavailabl e Care Physician, No Primary Primary Care Unava ilable Care Physician, No Primary Referring Unava ilable Maris Aragon Attending Unavailable Care Physician, No Primary Primary Care Unava ilable Care Physician, No Primary Referring Unava ilable Shea Rodriguez Attending Unavailable Care Physician, No Primary Primary Care Unava ilable Care Physician, No Primary Referring Unava ilable Maris Aragon Attending Unavailable Care Physician, No Primary Primary Care Unava ilable Earline Andrade Attending Unavailable Earline Andrade Referring Unavailable Laura Lechuga Referring Unavailable Laura Lechuga Attending Unavailable Care Physician, No Primary Primary Care Unava ilable Care Physician, No Primary Primary Care Unava ilable Earline Andrade Attending Unavailable Earline Andrade Referring Unavailable Care Physician, No Primary Primary Care Unava ilable Earline Andrade Attending Unavailable Earline Andrade Referring Unavailable Rhina Sweeney Attending Unavailabl e Care Physician, No Primary Primary Care Unava ilable Rhina Sweeney Referring Unavailabl e Care Physician, No Primary Primary Care Unava ilShea Damon Referring Unavailable Shea Rodriguez Attending Unavailable Shmuel JURADO, Dr. Pollock Attending Provider Earline Andrade CNM Other Provider Medications Current Medications Medication Drug Class(es) Dates Sig (Normalized) Sig (Original) Blood-Glucose Meter misc (8 sources) Start: 07-03-2024 Blood-Glucose Meter misc Active 0 .MEDSUPPLY 1 0 July 03, 2024 12:00am As directed- Test fasting 3-4 times per week Start: 07-03-2024 Blood-Glucose Meter misc Active 0 .MEDSUPPLY 1 July 03, 2024 12:00am As directed- Test fasting 3-4 times per week Mv-Mins 36-Ixmy-Xsunk No.1-D hearn (Pnv-[place]) 28-1-300 mg capsule (10 sources) Start: 02-23-2024 Mv-Mins 71-Iro n-Folic No.1-Dha (Pnv-[place]) 28-1-300 mg capsule Active NMA PO February 23, 2024 1:00am Problems Active Problems Problem Classification Problem Date Documented Da te Episodic/Chronic Diabetes or abnormal glucose tolerance complicating ; childbirth; or the puerperium (20 sources) with abnormal glucose tolerance test; Translations: [...] continue to monitor Early or threatened labor (13 sources) Premature uterine contraction; Translations: [False labor before 37 completed weeks of gestation, unspecified trimester] 08-12-2024 Episodic Immunizations and screening for infectious disease (1 source) Encounter for immunization; Translations: [Encounter for immunization] Onset: 07-16-2024 Episodic Other complications of ; puerperium affecting management of mother (19 sources) Large for gestation age fetus 07-16-2024 [...] , LORY , Mc Other complications of (17 sources) Excessive growth affecting management of mother; Translations: [Maternal care for excessive growth, unspecified trimester, not applicable or unspecified] 08-12-2024 Episodic Comment on above: Growth US: 83% EFW, 72% AC 30wk. Rpt 4wkNST wkly at 34 wk. FBS daily WNL Growth US: 97%ileNST wkly at 34 wk. BS daily WNL. discussed R/B/A of IOL at 39 weeks 97th% overall and 100th% for head, start monitoring glucose levels fasting and 2 hour postprandial. Continue weekly NSTs. estimating to be 10 pounds so it was communicated that we may recommend a section if goes all the way to term. early induction is not always recommended as induction could result in the baby getting stuck. If natural labor happens before 40 weeks we can see how it goes. Other complications of (2 sources) Uterine size-date [...] unspecified, second trimester] Onset: 06-27-2024 Episodic Other complications of (4 sources) Abnormal findings on screening of mother; Translations: [Other abnormal findings on screening of mother] 08-26-2024 Episodic Comment on above: in office BPP 09/13. r eactive on WP. d/c home Other and delivery including normal (20 sources) Normal ; Translations: [Encounter for supervision of normal first , unspecified trimester] Onset: 03-20-2024 04-02-2024 Episodic Comment on above: NIPT low risk NIPT low risk, nl an atomy Other screening for suspected conditions (not mental [...] , unspecified, unspecified trimester] Onset: 04-02-2024 Episodic Residual codes; unclassified (1 source) 14 weeks gestation of ; Translations: [14 weeks gestation of ] Onset: 04-02-2024 Episodic Residual codes; unclassified (1 source) 10 weeks gestation of ; Translations: [10 weeks gestation of ] Onset: 03-01-2024 Episodic Results Test Name Value Interpretation Reference Range Facility Bilirubin Test strip Ql (U)O rdered By: Earline Andrade on 08-26-2024 Bilirubin Ql (U) Negative Negative [facility] Ketones Test strip Ql (U)Ord ered By: Earline Andrade on 08-26-2024 Ketones Ql (U) Negative Negative [facility] Nitrite Test strip Ql (U)Ord ered By: Earline Andrade on 08-26-2024 Nitrite Ql (U) Negative Negative [facility] Protein Test strip Ql (U)Ord ered By: Earline Andrade on 08-26-2024 Protein Ql (U) 15 mg/dl High Negative [facility] Urine clarityOrdered By: Riccardo Andrade on 08-26-2024 Clarity (U) Cloudy Clear [facility] Urine color determinationOrd ered By: Earline Andrade on 08-26-2024 Color (U) Yellow Yellow [facility] Urine glucose detectionOrder ed By: Earline Andrade on 08-26-2024 Glucose Ql (U) Normal mg/dl Normal [facility] Urine leukocyte esterase det ection by dipstickOrdered By: Earline Andrade on 08-26-2024 Leukocyte esterase Test strip Ql (U) 25 /ul High Negative [facility] Urine pHOrdered By: Earline mirza on 08-26-2024 pH (U) 7.0 [pH] 5.0 - 8.0 [facility] Urine specific gravity measu rementOrdered By: Earline Andrade on 08-26-2024 Specific gravity (U) [Rel density] 1.015 1.002-1.030 [facility] Urine urobilinogen measureme ntOrdered By: Earline Andrade on 08-26-2024 Urobilinogen Ql (U) Normal mg/dl Normal [facility] OB Limited With Biometricson 08-21-2024 OB Limited With Biometrics [facility] Imaging Services [address] [place] [address] [id number] OB Limited With Biometrics MR#: [id number] Acct: [id number] Name: SAMEER CABALLERO Rep #: [id number] : 1990 F 34 From: Kale moyer MD PCP: Care Physician,No Primary Status: REG CLI Study: OB Limited With Biometrics Date of Exam: 08/21 Exam# [id number] Ordering Dr: Shea Rodriguez NP PYROTECHNIC MIXER -C PROCEDURE: OB LIMITED WITH BIOMETRICS 08/21/2024 REASON FOR EXAM: GROWTH Large for dates. TECHNIQUE: OB LIMITED WITH BIOMETRICS COMPARISON: Prior study dated July 22, 2024. FINDINGS Number: 1 Position: Vertex Placental Position: Posterior and not low-lying. Placental Abnormalities: No evidence of previa. DIMENSIONS: Biparietal Diameter: 9.4 cm: 38 weeks and 2 days: 100 percentile/ Head Circumference: 32.5 cm: 36 weeks and 5 days: 64 percentile/ Abdominal Circumference: 33.2 cm: 37 weeks and 1 day: 97 percentile/ Femur Length: 7.2 cm: 37 weeks and 1 day: 91st percentile/ ESTIMATED WEIGHT: 3220 g plus/-483 g ESTIMATED WEIGHT PERCENTILE (24+ weeks): 97 ESTIMATED GESTATIONAL AGE: Baseline: 34 weeks and 6 days By Ultrasound: 36 weeks and 6 days ESTIMATED DATE OF DELIVERY: Baseline: September 26, 2024 By Ultrasound: September 12, 2024 BIOPHYSICAL ASSESSMENT: Amniotic Fluid Volume: 5.3 cm Amniotic Fluid Index: 11.5 (8-24 cm normal range) Cardiac Motion: 145 beats per minute (average) Trunk and Limb Motion: Present. MATERNAL ANATOMY: Adnexa: Neither maternal ovary is successfully identified. US/OB Limited With Biometrics IMPRESSION: Single live intrauterine gestation with a mean gestational age of 37 weeks and 1 day. The measurements obtained today fall with the normal expected range. Reading Location: [facility] CC: PYROTECHNIC MIXER-Ronnie Rodriguez; No Primary Care Physician Fruit Buying Grader: Signed Normal [facility] Laboratory - Chemistry and C hemistry - challengeOrdered By: Rhina Murcia on 08-19-2024 Glucose Ql (U) Negative [facility] Laboratory - UrinalysisOrder ed By: Rhina Murcia on 08-19-2024 Protein Ql (U) Negative [facility] Roller Skate Repairer Office Visit Reporton 08-19-2024 Roller Skate Repairer Office Visit Report [facility]'s [address], [address] [place] [address] OFFICE VISIT Date of Service: 08/19/24 MR#: [id number] Acct: [id number] Name: SAMEER CABALLERO Rep #: [id number] : 1990 Provider: [...] 35 wk ob/nst 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 Is patient in pain?: No Allergies No Known Allergies Allergy (Verified 08/19/24 08:35) Medications ???Medication ???Instructions ???Recorded ???Confirmed ???Type multivit-min no.71-iron fum 28 cap PO 02/23/24 08/19/24 History mg-folate no.1 1 mg-dha 300 mg capsule (PNV-[place]) blood sugar diagnostic (Blood #120 ea 07/03/24 08/19/24 Rx Glucose Test strips) blood-glucose meter #1 ea 07/03/24 08/19/24 Rx lancets #100 ea 07/03/24 08/19/24 Rx Last Menstrual Period: 12/21/23 : No Have you fallen in the past year?: No PFSH PFSH Medical History Seasonal allergies History of frequent headaches Surgical History Ackerly teeth extracted Family History Grandmother CVA (cerebral vascular accident) Maternal Diabetes Maternal Grandfather Myocardial infarction, Onset Age: 54 Maternal Social History adopted: No household members: spouse housing: house number of children: 0 current occupational status: employed current occupation: [employer] current occupational exposures/hazards: No pets and animals: [...] physical activity do you participate in: none ganesh/protestant: Samaritan seatbelt use: always do you feel safe [...] ???-???-???-???-???-? ??-???- (more content not included)... Normal [facility] Laboratory - Chemistry and C hemistry - challengeOrdered By: Rhina Murcia on 08-12-2024 Glucose Ql (U) Negative [facility] Laboratory - UrinalysisOrder ed By: Rhina Murcia on 08-12-2024 Protein Ql (U) Negative [facility] Roller Skate Repairer Office Visit Reporton 08-12-2024 Roller Skate Repairer Office Visit Report [facility]'s [address], [address] [place] [address] OFFICE VISIT Date of Service: 08/12/24 MR#: [id number] Acct: [id number] Name: SAMEER CABALLERO Rep #: [id number] [...] H Intake Visit Reasons: 34 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 Is patient in pain?: No Allergies No Known Allergies Allergy (Verified 08/12/24 08:11) Medications ???Medication ???Instructions ???Recorded ???Confirmed ???Type multivit-min no.71-iron fum 28 cap PO 02/23/24 08/12/24 History mg-folate no.1 1 mg-dha 300 mg capsule (PNV-[place]) blood sugar diagnostic (Blood #120 ea 07/03/24 08/12/24 Rx Glucose Test strips) blood-glucose meter #1 ea 07/03/24 08/12/24 Rx lancets #100 ea 07/03/24 08/12/24 Rx Last Menstrual Period: 12/21/23 Zika: Zika virus screening: Negative : No PFSH PFSH Medical History Seasonal allergies History of frequent headaches Surgical History Ackerly teeth extracted Family History Grandmother CVA (cerebral vascular accident) Maternal Diabetes Maternal Grandfather Myocardial infarction, Onset Age: 54 Maternal Social History adopted: No household members: spouse housing: house number of children: 0 current occupational status: employed current occupation: [employer] current occupational exposures/hazards: No pets and animals: Yes pets and animals: dog(s) history of recent travel: Yes ([facility] in January) out of state: [...] physical activity do you participate in: none ganesh/protestant: Samaritan seatbelt use: always do you feel safe at home: Yes additional social history: - Mc - hankins History 1 Elective abortions Hx Para 0 Spontaneous abortions Hx # Term Pregnancies Ectopic pregnancies Hx # Pregnancies Multiple births # of living children HPI 34 wk ob/NST Details: SAMEER CABALELRO is a 34 year old who presents [...] ???-???-???-???-???-? ??-???- Negative 146 -???-???-???-???-???- ???-???-???-???-???-? ??-???- -No VB. N (more content not included)... Normal [facility] Laboratory - Chemistry and C hemistry - challengeOrdered By: Shea Rodriguez on 07-30-2024 Glucose Ql (U) Negative [facility] Laboratory - UrinalysisOrder ed By: Shea Rodriguez on 07-30-2024 Protein Ql (U) Negative [facility] Roller Skate Repairer Office Visit Reporton 07-30-2024 Roller Skate Repairer Office Visit Report [address], [address] [place] [address] OFFICE VISIT Date of Service: 07/30/24 MR#: [id number] Acct: [id number] Name: SAMEER CABALLERO Rep #: [id number] [...] 32wk ob 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: 32 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 Is patient in pain?: No Allergies No Known Allergies Allergy (Verified 07/30/24 08:22) Medications ???Medication ???Instructions ???Recorded ???Confirmed ???Type multivit-min no.71-iron fum 28 cap PO 02/23/24 07/30/24 History mg-folate no.1 1 mg-dha 300 mg capsule (PNV-[place]) blood sugar diagnostic (Blood #120 ea 07/03/24 07/30/24 Rx Glucose Test strips) blood-glucose meter #1 ea 07/03/24 07/30/24 Rx lancets #100 ea 07/03/24 07/30/24 Rx Last Menstrual Period: 12/21/23 Zika: Zika virus screening: Negative : No PFSH PFSH Medical History Seasonal allergies History of frequent headaches Surgical History Ackerly teeth extracted Family History Grandmother CVA (cerebral vascular accident) Maternal Diabetes Maternal Grandfather Myocardial infarction, Onset Age: 54 Maternal Social History adopted: No household members: spouse housing: house number of children: 0 current occupational status: employed current occupation: [employer] current occupational exposures/hazards: No pets and animals: [...] physical activity do you participate in: none ganesh/protestant: Samaritan seatbelt use: always do you feel safe [...] ???-???-???-???-???-? ??-???- Negative 146 -???-???-???-???-???- ???-???-???-???-???-? ??-???- MH- (more content not included)... Normal [facility] OB Limited With Biometricson 07-22-2024 OB Limited With Biometrics [facility] Imaging Services [address] [place], [place] [id number] OB Limited With Biometrics MR#: [id number] Acct: [id number] Name: SAMEER CABALLERO Rep #: [id number] : 1990 F 34 From: Kale moyer MD PCP: Care Physician,No Primary Status: REG CLI Study: OB Limited With Biometrics Date of Exam: 07/22 Exam# [id number] Ordering Dr: Shea Rodriguez PYROTECHNIC MIXER PYROTECHNIC MIXER -C PROCEDURE: OB LIMITED WITH BIOMETRICS 07/22/2024 [...] 33 weeks and 0 days. Reading Location: [place] [address] CC: NERY Rodriguez; No Primary Care Physician Fruit Buying Grader: Signed Normal [facility] Laboratory - Chemistry and C hemistry - challengeOrdered By: Shea Rodriguez on 07-16-2024 Glucose Ql (U) Negative [facility] Laboratory - UrinalysisOrder ed By: Shea Rodriguez on 07-16-2024 Protein Ql (U) Negative [facility] Roller Skate Repairer Office Visit Reporton 07-16-2024 Roller Skate Repairer Office Visit Report [facility]'s [address], [address] [place] [address] OFFICE VISIT Date of Service: 07/16/24 MR#: [id number] Acct: [id number] Name: SAMEER CABALLERO Rep #: [id number] : 1990 Provider: NERY hsieh Age/Sex: 34/F [place] [facility] [place] Status: Signed Intake Vital Signs 05/02/24 08:39 06/24/24 15:33 07/16/24 15:29 Height 5 ft 5 in 5 ft 5 in 5 ft 5 in Weight: 295 lb 4 oz BMI 49.1 BP 120/74 Intake Visit Reasons: 30wk ob 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: 30 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 Is patient in pain?: No Allergies No Known Allergies Allergy (Verified 07/16/24 15:29) Medications ???Medication ???Instructions ???Recorded ???Confirmed ???Type multivit-min no.71-iron fum 28 cap PO 02/23/24 07/16/24 History mg-folate no.1 1 mg-dha 300 mg capsule (PNV-[place]) blood sugar diagnostic (Blood #120 ea 07/03/24 07/16/24 Rx Glucose Test strips) blood-glucose meter #1 ea 07/03/24 07/16/24 Rx lancets #100 ea 07/03/24 07/16/24 Rx Last Menstrual Period: 12/21/23 Zika: Zika virus screening: Negative : No PFSH PFSH Medical History Seasonal allergies History of frequent headaches Surgical History Ackerly teeth extracted Family History Grandmother CVA (cerebral vascular accident) Maternal Diabetes Maternal Grandfather Myocardial infarction, Onset Age: 54 Maternal Social History adopted: No household members: spouse housing: house number of children: 0 current occupational status: employed current occupation: [employer] current occupational exposures/hazards: No pets and animals: Yes pets and animals: dog(s) history of recent travel: Yes ([place] in [place]) out of state: Yes [...] physical activity do you participate in: none ganesh/protestant: Samaritan seatbelt use: always do you feel safe [...] usea resol (more content not included)... Normal [facility] Gestational GTT 3HR 100gon 0 07-03-2024 GEST GTT 100gm Normal [facility] Comment on above: Order Comment: [...] 1014 Performed By: #### L 500.4710 #### [facility] Laboratory [address] [place], [place] [address]all [facility], [address] Quantitative serum or plasma 3 hour gestational glucose tolerance panelOrdered By: Rhina Murcia on 07-03-2024 Glucose tolerance 3 hours gestational panel See comment [facility] Comment on above: FASTING 96 Col: 0509/30 0648GLUCOSE TOLERANCE TEST FOR Reference Interval GESTATIONAL DIABETES Fasting <105 mg/dL 1 hour <190 mg/dl 2 hour <165 mg/dl 3 hour <145 mg/dl 1 HR GLU 162 Col: 07/03/24 0818 2 HR GLU 103 Col: 07/03/24 0918 3 HR GLU 134 Col: 07/03/24 1014 Absolute lymphocyte countOrd ered By: Rhina Divina on 06-24-2024 Lymphocytes Auto (Unsp spec) [#/Vol] 1.97 10*3/uL 0.83-4.51 [facility] Absolute neutrophil countOrd ered By: Rhina Divina on 06-24-2024 Neutrophils (Bld) [#/Vol] 7.8 10*3/uL High 2.0-7.7 [facility] Automated lymphocyte count a s percentage of total leukocytesOrdered By: Rhinabev Murcia on 06-24-2024 Lymphocytes/100 WBC Auto (Unsp spec) 18.8 % Low - [facility] Basophil percentageOrdered B y: Rhina Divina on 06-24-2024 Basophils/100 WBC (Bld) 0.2 % 0-1 [facility] CBC W/Diff, Automatedon 06-06 Absolute Lymph 1.97 X10 3/uL Normal 0.83-4.51 [facility] Comment on above: Performed By: #### L 509.8002, L100.0100, L3890.6006, L501.0250 #### [facility] Laboratory [address] [place], [address] Absolute Neut 7.8 X10 3/uL High 2.0-7.7 [facility] Comment on above: Performed By: #### L 509.8002, L100.0100, L3890.6006, L501.0250 #### [facility] Laboratory [address] [place], [address] Basophils/100 WBC (Bld) 0.2 % Normal 0-1 [facility] Comment on above: Performed By: #### L 509.8002, L100.0100, L3890.6006, L501.0250 #### [facility] [address] [place], [address] Eosinophils/100 WBC (Bld) 1.0 % Normal 0-5 [facility] Comment on above: Performed By: #### L 509.8002, L100.0100, L3890.6006, L501.0250 #### [facility] [address] [place], [address] Erythrocyte distribution width (RBC) [Ratio] 14.4 % Normal 11.6-14.6 [facility] Comment on above: Performed By: #### L 509.8002, L100.0100, L3890.6006, L501.0250 #### [facility] Laboratory [address] [place], [address] Hematocrit (Bld) [Volume fraction] 33.4 % Low 37-47 [facility] Comment on above: Performed By: #### L 509.8002, L100.0100, L3890.6006, L501.0250 #### [facility] Laboratory [address] [place], [address] Hemoglobin (Bld) [Mass/Vol] 11.0 g/dL Low 12.0-15.0 [facility] Comment on above: Performed By: #### L 509.8002, L100.0100, L3890.6006, L501.0250 #### [facility] Laboratory [address] [place], [address] IG% 0.500 Normal 0.0-0.9 [facility] Comment on above: Result Comment: IG% - Immature Granulocytes (promyelocytes, myelocytes and metamyelocytes) > 1% indicates that a LEFT SHIFT is Present. Performed By: #### L 509.8002, L100.0100, L3890.6006, L501.0250 #### [facility] Laboratory [address] [place], [address] Lymphocytes/100 WBC (Bld) 18.8 % Low 19-41 [facility] Comment on above: Performed By: #### L 509.8002, L100.0100, L3890.6006, L501.0250 #### [facility] [address] [place], [address] MCH (RBC) [Entitic mass] 27.9 pg Normal 27.0-32.0 [facility] Comment on above: Performed By: #### L 509.8002, L100.0100, L3890.6006, L501.0250 #### [facility] [address] [place], [address] MCHC (RBC) [Mass/Vol] 32.9 g/dL Normal 32-36 [facility] Comment on above: Performed By: #### L 509.8002, L100.0100, L3890.6006, L501.0250 #### [facility] [address] [place], [address] MCV (RBC) [Entitic vol] 84.8 fL Normal 81-99 [facility] Comment on above: Performed By: #### L 509.8002, L100.0100, L3890.6006, L501.0250 #### [facility] [address] [place], [address] Monocytes/100 WBC (Bld) 5.0 % Normal 0-10 [facility] Comment on above: Performed By: #### L 509.8002, L100.0100, L3890.6006, L501.0250 #### [facility] [address] [place], [address] Neutrophils/100 WBC (Bld) 74.5 % High 47-70 [facility] Comment on above: Performed By: #### L 509.8002, L100.0100, L3890.6006, L501.0250 #### [facility] [address] [place], [address] Nucleated RBC (Bld) [#/Vol] 0 10*3/uL Normal 0-5 [facility] Comment on above: Performed By: #### L 509.8002, L100.0100, L3890.6006, L501.0250 #### [facility] [address] [place], [address] Platelet mean volume (Bld) [Entitic vol] 10.4 fL Normal 6.2-12.0 [facility] Comment on above: Performed By: #### L 509.8002, L100.0100, L3890.6006, L501.0250 #### [facility] [address] [place], [address] Platelets (Bld) [#/Vol] 290 10*3/uL Normal 150-450 [facility] Comment on above: Performed By: #### L 509.8002, L100.0100, L3890.6006, L501.0250 #### [facility] [address] [place], [address] RBC (Bld) [#/Vol] 3.94 10*6/uL Low 4.2-5.4 [facility] Comment on above: Performed By: #### L 509.8002, L100.0100, L3890.6006, L501.0250 #### [facility] [address] [place], [address] RDW SD 44.6 fl High 35.1-43.9 [facility] Comment on above: Performed By: #### L 509.8002, L100.0100, L3890.6006, L501.0250 #### [facility] [address] [place], [address] WBC (Bld) [#/Vol] 10.5 10*3/uL Normal 4.4-11.0 [facility] Comment on above: Performed By: #### L 509.8002, L100.0100, L3890.6006, L501.0250 #### [facility] [address] [place], [address] Eosinophil percentageOrdered By: Rhina Murcia on 06-24-2024 Eosinophils/100 WBC (Bld) 1.0 % 0-5 [facility] Erythrocyte distribution wid th ratioOrdered By: Rhina Murcia on 06-24-2024 Erythrocyte distribution width (RBC) [Ratio] 14.4 % 11.6-14.6 [facility] Erythrocyte distribution wid th standard deviationOrdered By: Rhina Murcia on 06-24-2024 Erythrocyte distribution width (RBC) [Ratio] 44.6 fl High 35.1-43.9 [facility] Glucose Challenge Gest 1H 50 abdirahman 06-24-2024 GLU GEST 50g 1H 139 mg/dL Normal 70-140 [facility] Comment on above: Performed By: #### L 509.8002, L100.0100, L3890.6006, L501.0250 #### [facility] [address] [place], [address] Glucose measurement at 2 virgen rs post-dose gestational glucose tolerance testOrdered By: Rhina Murcia on 06-24-2024 Glucose [Mass/Vol] 139 mg/dL 70-140 [facility] HIVon 06-24-2024 HIV Non-Reactive Normal Nonreactive [facility] Comment on above: Result Comment: Non- Reactive Reactive Repeatedly reactive samples must be confirmed according to CDC recommended confirmatory algorithms. The subresults for either HIVAG or AHIV can be used as an aid in the selection of the confirmation algorithm for reactive samples. Send out specimens with Reactive results to [facility] for confirmation. Order the HIV antibody detection and differentiation: lc#[id number] Performed By: #### L 509.8002, L100.0100, L3890.6006, L501.0250 #### [facility] [address] [place], [address] Hematocrit Auto (Bld) [Volum e fraction]Ordered By: Rhina Murcia on 06-24-2024 Hematocrit (Bld) [Volume fraction] 33.4 % Low 37-47 [facility] Hemoglobin measurementOrdere d By: Rhina Murcia on 06-24-2024 Hemoglobin (Bld) [Mass/Vol] 11.0 g/dL Low 12.0-15.0 [facility] Immature granulocytes/100 WB C Auto (Bld)Ordered By: Rhina Murcia on 06-24-2024 Immature granulocytes/100 WBC (Bld) 0.500 % 0.0-0.9 [facility] Comment on above: IG% - Immature Granu locytes (promyelocytes, myelocytes and metamyelocytes) > 1% indicates that a LEFT SHIFT is Present. Laboratory - Chemistry and C hemistry - challengeOrdered By: Rhina Murcia on 06-24-2024 Glucose Ql (U) Negative [facility] Laboratory - UrinalysisOrder ed By: Rhina Murcia on 06-24-2024 Protein Ql (U) Negative [facility] MCV (mean corpuscular volume ) determinationOrdered By: Rhina Murcia on 06-24-2024 MCV (RBC) [Entitic vol] 84.8 fL 81-99 [facility] Mean corpuscular hemoglobin (MCH) determinationOrdered By: Rhina Murcia on 06-24-2024 MCH (RBC) [Entitic mass] 27.9 pg 27.0-32.0 [facility] Mean corpuscular hemoglobin concentration (MCHC) determinationOrdered By: Rhina Murcia on 06-24-2024 MCHC (RBC) [Mass/Vol] 32.9 g/dL 32-36 [facility] Mean platelet volume determi nationOrdered By: Rhina Murcia on 06-24-2024 Platelet mean volume (Bld) [Entitic vol] 10.4 fL 6.2-12.0 [facility] Monocyte percentageOrdered B y: Rhina Murcia on 06-24-2024 Monocytes/100 WBC (Bld) 5.0 % 0-10 [facility] Neutrophil percentageOrdered By: Rhina Murcia on 06-24-2024 Neutrophils/100 WBC (Bld) 74.5 % High 47-70 [facility] No Panel InformationOrdered By: Rhina Murcia on 06-24-2024 HIV (1&2) Antibody Non-Reactive Nonreactive [facility] Comment on above: Non-ReactiveReactive Repeatedly reactive samples must be confirmed according to CDC recommended confirmatory algorithms. The subresults for either HIVAG or AHIV can be used as an aid in the selection of the confirmation algorithm for reactive samples.Send out specimens with Reactive results to [facility] for confirmation.Order the HIV antibody detection and differentiation: #[id number] Nucleated red blood cell per centageOrdered By: Rhina Murcia on 06-24-2024 Nucleated RBC/100 WBC (Bld) [Ratio] 0 % 0-5 [facility] [employer]aire[employer] Office Visit Reporton 06-24-2024 [employer]ate Repairer Office Visit Report [facility]'s [address], [address] [place] [address] OFFICE VISIT Date of Service: 06/24/24 MR#: [id number] Acct: [id number] Name: SAMEER CABALLERO Rep #: [id number] [...] 127/83 H Intake Visit 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 Is patient in pain?: No Allergies No Known Allergies Allergy (Verified 06/24/24 15:31) Medications ???Medication ???Instructions ???Recorded ???Confirmed ???Type multivit-min no.71-iron fum 28 cap PO 02/23/24 06/24/24 History mg-folate no.1 1 mg-dha 300 mg capsule (PNV-[place]) Last Menstrual Period: 12/21/23 Zika: Zika virus screening: Negative : No PFSH PFSH Medical History Seasonal allergies History of frequent headaches Surgical History Ackerly teeth extracted Family History Grandmother CVA (cerebral vascular accident) Maternal Diabetes Maternal Grandfather Myocardial infarction, Onset Age: 54 Maternal Social History adopted: No household members: spouse housing: house number of children: 0 current occupational status: employed current occupation: [employer] current occupational exposures/hazards: No pets and animals: Yes pets and animals: dog(s) history of recent travel: Yes ([place]) out of state: Yes [...] physical activity do you participate in: none ganesh/protestant: Samaritan seatbelt use: always do you feel safe [...] -???-???-???-???-???- ?? (more content not included)... Normal [facility] Platelet countOrdered By: Valdemar Murcia on 06-24-2024 Platelets (d) [#/Vol] 290 10*3/uL 150-450 [facility] RBC Auto (d) [#/Vol]Ordere d By: Rhina Murcia on 06-24-2024 RBC (Bld) [#/Vol] 3.94 10*6/uL Low 4.2-5.4 [facility] Syphilis Antibodieson 2024 Syphilis Abs Non-Reactive Normal Nonreactive [facility] Comment on above: Performed By: #### L 254.1746, L100.0100, L3890.6006, L501.0250 #### [facility] [address] [place], [address] White blood cell (WBC) count Ordered By: Rhina Murcia on 06-24-2024 WBC (Bld) [#/Vol] 10.5 10*3/uL 4.4-11.0 [facility] Laboratory - Chemistry and C hemistry - challengeOrdered By: Earline Andrade on 05-29-2024 Glucose Ql (U) Negative [facility] Laboratory - UrinalysisOrder ed By: Earline Andrade on 05-29-2024 Protein Ql (U) Negative [facility] Roller Skate Repairer Office Visit Reporton 05-29-2024 Roller Skate Repairer Office Visit Report [facility]'s [address], [address] [place] [address] OFFICE VISIT Date of Service: 05/29/24 MR#: [id number] Acct: [id number] Name: SAMEER CABALLERO Rep #: [id number] : 1990 Provider: MARIO Fournier ams Age/Sex: 34/F Location: [facility] [place] Status: Signed Intake Vital Signs 03/01/24 14:33 05/02/24 08:39 05/29/24 07:25 05/29/24 07:31 Height 5 ft 5 in 5 ft 5 in 5 ft 5 in 5 ft 5 in Weight: 285 lb 6 oz BMI 47.5 BP 120/80 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 Is patient in pain?: No Allergies No Known Allergies Allergy (Verified 05/29/24 07:23) Medications ???Medication ???Instructions ???Recorded ???Confirmed ???Type multivit-min no.71-iron fum 28 cap PO 02/23/24 05/29/24 History mg-folate no.1 1 mg-dha 300 mg capsule (PNV-[place]) Last Menstrual Period: 12/21/23 Do you think of yourself as: straight/heterosexual Current gender identity: female Zika: Zika virus screening: Negative : No PFSH PFSH Medical History Seasonal allergies History of frequent headaches Surgical History Ackerly teeth extracted Family History Grandmother CVA (cerebral vascular accident) Maternal Diabetes Maternal Grandfather Myocardial infarction, Onset Age: 54 Maternal Social History adopted: No household members: spouse housing: house number of children: 0 current occupational status: employed current occupation: [employer] current occupational exposures/hazards: No pets and animals: [...] physical activity do you participate in: none ganesh/protestant: Samaritan seatbelt use: always do you feel safe [...] -???-???-???-???-???- ???-???- (more content not included)... Normal [facility] Laboratory - Chemistry and C hemistry - challengeOrdered By: Shea Rodriguez on 05-02-2024 Glucose Ql (U) Negative [facility] Laboratory - UrinalysisOrder ed By: Shea Rodriguez on 05-02-2024 Protein Ql (U) Negative [facility] Roller Skate Repairer Office Visit Reporton 05-02-2024 Roller Skate Repairer Office Visit Report [facility]'s [address], [address] [place] [address] OFFICE VISIT Date of Service: 05/02/24 MR#: [id number] Acct: [id number] Name: SAMEER CABALLERO Rep #: [id number] : 1990 Provider: NERY hsieh Age/Sex: 33/F Location[place] [facility] [place] Status: Signed Intake Vital Signs 01/24/25 14:33 04/02/24 09:19 05/02/24 08:23 Height 5 ft 5 in 5 ft 5 in 5 ft 5 in Weight: 278 lb 2 oz BMI 46.3 BP 126/84 H Intake Visit Reasons: 18 wk ob 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: 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 Is patient in pain?: No Allergies No Known Allergies Allergy (Verified 05/02/24 08:23) Medications ???Medication ???Instructions ???Recorded ???Confirmed ???Type multivit-min no.71-iron fum 28 cap PO 02/23/24 05/02/24 History mg-folate no.1 1 mg-dha 300 mg capsule (PNV-[place]) Last Menstrual Period: 12/21/23 Zika: Zika virus screening: Negative : No PFSH PFSH Medical History Seasonal allergies History of frequent headaches Surgical History Ackerly teeth extracted Family History Grandmother CVA (cerebral vascular accident) Maternal Diabetes Maternal Grandfather Myocardial infarction, Onset Age: 54 Maternal Social History adopted: No household members: spouse housing: house number of children: 0 current occupational status: employed current occupation: [employer] current occupational exposures/hazards: No pets and animals: Yes pets and animals: dog(s) history of recent travel: Yes ([facility] in January) out of state: [...] physical activity do you participate in: none ganesh/protestant: Samaritan seatbelt use: always do you feel safe [...] to care (more content not included)... Normal [facility] Hemoglobin A1con 04-03-2024 HbA1c (Bld) [Mass fraction] 5.2 % Low <=5.6 [facility] Comment on above: Performed By: #### L 509.8002, L100.0100, L3890.6006, L501.0250 #### [facility] [address] [facility] [place], [place], [address] L3890.6102on 04-03-2024 HEP B Surf Ag Non-Reactive Normal Nonreactive [facility] Comment on above: Result Comment: Reac tive: Presumptive evidence of HBV. Repeatedly reactive samples must be confirmed using a neutralization test ([facility] HBsAg Confirmatory Test) Non-Reactive: HBsAg not detected; does not exclude the possibility of exposure to HBV Performed By: #### L 509.8002, L100.0100, L3890.6006, L501.0250 #### [facility] [address] [facility]. [place], [place], [id number] Absolute lymphocyte countOrd ered By: Earline Andrade on 04-02-2024 Lymphocytes Auto (Unsp spec) [#/Vol] 2.43 10*3/uL 0.83-4.51 [facility] Absolute neutrophil countOrd ered By: Earline Andrade on 04-02-2024 Neutrophils (Bld) [#/Vol] 6.7 10*3/uL 2.0-7.7 [facility] Automated lymphocyte count a s percentage of total leukocytesOrdered By: Earline Andrade on 04-02-2024 Lymphocytes/100 WBC Auto (Unsp spec) 24.8 % 19-41 [facility] Basophil percentageOrdered B y: Earline Andrade on 04-02-2024 Basophils/100 WBC (Bld) 0.3 % 0-1 [facility] CBC W/Diff, Automatedon 03-10 Absolute Lymph 2.43 X10 3/uL Normal 0.83-4.51 [facility] Comment on above: Performed By: #### L 509.8002, BTS, L900.0098, L3890.6102, L100.0100, L501.9985, L3890.6301, L3890.6006, L509.4006 #### [facility] [address] [place], [address] Absolute Neut 6.7 X10 3/uL Normal 2.0-7.7 [facility] Comment on above: Performed By: #### L 509.8002, BTS, L900.0098, L3890.6102, L100.0100, L501.9985, L3890.6301, L3890.6006, L509.4006 #### [facility] [address] [place], [address] Basophils/100 WBC (Bld) 0.3 % Normal 0-1 [facility] Comment on above: Performed By: #### L 509.8002, BTS, L900.0098, L3890.6102, L100.0100, L501.9985, L3890.6301, L3890.6006, L509.4006 #### [facility] [address] [place], [address] Eosinophils/100 WBC (Bld) 1.3 % Normal 0-5 [facility] Comment on above: Performed By: #### L 509.8002, BTS, L900.0098, L3890.6102, L100.0100, L501.9985, L3890.6301, L3890.6006, L509.4006 #### [facility] [address] [place], [address] Erythrocyte distribution width (RBC) [Ratio] 13.6 % Normal 11.6-14.6 [facility] Comment on above: Performed By: #### L 509.8002, BTS, L900.0098, L3890.6102, L100.0100, L501.9985, L3890.6301, L3890.6006, L509.4006 #### [facility] [address] [place], [address] Hematocrit (Bld) [Volume fraction] 38.5 % Normal 37-47 [facility] Comment on above: Performed By: #### L 509.8002, BTS, L900.0098, L3890.6102, L100.0100, L501.9985, L3890.6301, L3890.6006, L509.4006 #### [facility] [address] [place], [address] Hemoglobin (Bld) [Mass/Vol] 13.0 g/dL Normal 12.0-15.0 [facility] Comment on above: Performed By: #### L 509.8002, BTS, L900.0098, L3890.6102, L100.0100, L501.9985, L3890.6301, L3890.6006, L509.4006 #### [facility] [address] [place], [address] ( IG% 0.300 Normal 0.0-0.9 [facility] Comment on above: Result Comment: IG% - Immature Granulocytes (promyelocytes, myelocytes and metamyelocytes) > 1% indicates that a LEFT SHIFT is Present. Performed By: #### L 509.8002, BTS, L900.0098, L3890.6102, L100.0100, L501.9985, L3890.6301, L3890.6006, L509.4006 #### [facility] [address] [place], [address] Lymphocytes/100 WBC (Bld) 24.8 % Normal 19-41 [facility] Comment on above: Performed By: #### L 509.8002, BTS, L900.0098, L3890.6102, L100.0100, L501.9985, L3890.6301, L3890.6006, L509.4006 #### [facility] [address] [place], [address] MCH (RBC) [Entitic mass] 28.1 pg Normal 27.0-32.0 [facility] Comment on above: Performed By: #### L 509.8002, BTS, L900.0098, L3890.6102, L100.0100, L501.9985, L3890.6301, L3890.6006, L509.4006 #### [facility] [address] [place], [address] MCHC (RBC) [Mass/Vol] 33.8 g/dL Normal 32-36 [facility] Comment on above: Performed By: #### L 509.8002, BTS, L900.0098, L3890.6102, L100.0100, L501.9985, L3890.6301, L3890.6006, L509.4006 #### [facility] [address] [place], [address] MCV (RBC) [Entitic vol] 83.2 fL Normal 81-99 [facility] Comment on above: Performed By: #### L 509.8002, BTS, L900.0098, L3890.6102, L100.0100, L501.9985, L3890.6301, L3890.6006, L509.4006 #### [facility] [address] [place], [address] Monocytes/100 WBC (Bld) 5.2 % Normal 0-10 [facility] Comment on above: Performed By: #### L 509.8002, BTS, L900.0098, L3890.6102, L100.0100, L501.9985, L3890.6301, L3890.6006, L509.4006 #### [facility] [address] [place], [address] Neutrophils/100 WBC (Bld) 68.1 % Normal 47-70 [facility] Comment on above: Performed By: #### L 509.8002, BTS, L900.0098, L3890.6102, L100.0100, L501.9985, L3890.6301, L3890.6006, L509.4006 #### [facility] [address] [place], [address] Nucleated RBC (Bld) [#/Vol] 0 10*3/uL Normal 0-5 [facility] Comment on above: Performed By: #### L 509.8002, BTS, L900.0098, L3890.6102, L100.0100, L501.9985, L3890.6301, L3890.6006, L509.4006 #### [facility] [address] [facility] [place], [address] Platelet mean volume (Bld) [Entitic vol] 11.4 fL Normal 6.2-12.0 [facility] Comment on above: Performed By: #### L 509.8002, BTS, L900.0098, L3890.6102, L100.0100, L501.9985, L3890.6301, L3890.6006, L509.4006 #### [facility] [address] [place], [address] Platelets (Bld) [#/Vol] 269 10*3/uL Normal 150-450 [facility] Comment on above: Performed By: #### L 509.8002, BTS, L900.0098, L3890.6102, L100.0100, L501.9985, L3890.6301, L3890.6006, L509.4006 #### [facility] [address] [place], [address] RBC (Bld) [#/Vol] 4.63 10*6/uL Normal 4.2-5.4 [facility] Comment on above: Performed By: #### L 509.8002, BTS, L900.0098, L3890.6102, L100.0100, L501.9985, L3890.6301, L3890.6006, L509.4006 #### [facility] [address] [place], [address] RDW SD 41.1 fl Normal 35.1-43.9 [facility] Comment on above: Performed By: #### L 509.8002, BTS, L900.0098, L3890.6102, L100.0100, L501.9985, L3890.6301, L3890.6006, L509.4006 #### [facility] [address] [place], [address] WBC (Bld) [#/Vol] 9.8 10*3/uL Normal 4.4-11.0 [facility] Comment on above: Performed By: #### L 509.8002, BTS, L900.0098, L3890.6102, L100.0100, L501.9985, L3890.6301, L3890.6006, L509.4006 #### [facility] [address] [facility] [place], [address] Eosinophil percentageOrdered By: Earline Andrade on 04-02-2024 Eosinophils/100 WBC (Bld) 1.3 % 0-5 [facility] Erythrocyte distribution wid th ratioOrdered By: Earline Andrade on 04-02-2024 Erythrocyte distribution width (RBC) [Ratio] 13.6 % 11.6-14.6 [facility] Erythrocyte distribution wid th standard deviationOrdered By: Earline Andrade on 04-02-2024 Erythrocyte distribution width (RBC) [Entitic vol] 41.1 fL 35.1-43.9 [facility] Erythrocyte distribution width (RBC) [Ratio] 41.1 fl 35.1-43.9 [facility] HBV surface Ag Ql (S)Ordered By: Earline Andrade on 04-02-2024 Hepatitis B Surface Antigen Non-Reactive Nonreactive [facility] Comment on above: Reactive: Presumptiv e evidence of HBV. Repeatedly reactive samples must be confirmed using a neutralization test ([facility] HBsAg Confirmatory Test)Non-Reactive: HBsAg not detected; does not exclude the possibility of exposure to HBV Hematocrit Auto (Bld) [Volum e fraction]Ordered By: Earline Andrade on 04-02-2024 Hematocrit (Bld) [Volume fraction] 38.5 % 37-47 [facility] Hemoglobin A1c percentageOrd ered By: Earline Andrade on 04-02-2024 HbA1c (Bld) [Mass fraction] 5.2 % Low >5.7 [facility] Hemoglobin measurementOrdere d By: Earline Andrade on 04-02-2024 Hemoglobin (Bld) [Mass/Vol] 13.0 g/dL 12.0-15.0 [facility] Hepatitis C antibodyOrdered By: Earline Andrade on 04-02-2024 Hepatitis C Antibody Non-Reactive Nonreactive [facility] Comment on above: Reactive: Presumptiv e evidence of antibodies to HCV. Follow CDC recommendations for supplemental testing.Non-Reactive: Antibodies to HCV were not detected; does not exclude the possibility of exposure to HCVReactive Results are presumptive evidence of antibodies to HCV. Follow CDC recommendations for supplemental testing.Order confirmation testing: HCV Quant by PCR testing - HCVPCR lc#[id number] Non Reactive: < 0.8 Equivocal: >/= 0.8 to < 1.0 Reactive: >/= 1.0The CDC requires that a reactive/equivocal HCV antibody result be sent out for confirmation. HCV Quant by PCR testing. Immature granulocytes/100 WB C Auto (Bld)Ordered By: Earline Andrade on 04-02-2024 Immature granulocytes/100 WBC (Bld) 0.300 % 0.0-0.9 [facility] Comment on above: IG% - Immature Granu locytes (promyelocytes, myelocytes and metamyelocytes) > 1% indicates that a LEFT SHIFT is Present. L3890.6006on 04-02-2024 HIV Non-Reactive Normal Nonreactive [facility] Comment on above: Result Comment: Non- Reactive Reactive Repeatedly reactive samples must be confirmed according to CDC recommended confirmatory algorithms. The subresults for either HIVAG or AHIV can be used as an aid in the selection of the confirmation algorithm for reactive samples. Send out specimens with Reactive results to [facility] for confirmation. Order the HIV antibody detection and differentiation: [id number] Performed By: #### L 509.8002, L100.0100, L3890.6006, L501.0250 #### [facility] Laboratory [address] [place], [address] L3890.6301on 04-02-2024 Hepatitis C Ab Non-Reactive Normal Nonreactive [facility] Comment on above: Result Comment: Reac tive: Presumptive evidence of antibodies to HCV. Follow CDC recommendations for supplemental testing. Non-Reactive: Antibodies to HCV were not detected; does not exclude the possibility of exposure to HCV Reactive Results are presumptive evidence of antibodies to HCV. Follow CDC recommendations for supplemental testing. Order confirmation testing: HCV Quant by PCR testing - HCVPCR #[id number] Non Reactive: < 0.8 Equivocal: >/= 0.8 to < 1.0 Reactive: >/= 1.[address] [facility] requires that a reactive/equivocal HCV antibody result be sent out for confirmation. HCV Quant by PCR testing. Performed By: #### L 509.8002, L100.0100, L3890.6006, L501.0250 #### [facility] Laboratory [address] [place], [address] L509.4006on 04-02-2024 Rubella IgG REAC Normal Nonreactive [facility] Comment on above: Result Comment: Anti body Result: Interpretation Non-Reactive: Non-Immune Reactive: Immune The following results were obtained with the Elecsys Rubella IgG assay. Results from assays of other manufacturers cannot be used interchangeably. Performed By: #### L 509.8002, BTS, L900.0098, L3890.6102, L100.0100, L501.9985, L3890.6301, L3890.6006, L509.4006 #### [facility] Laboratory [address] [place], [address] L509.8002on 04-02-2024 Syphilis Abs Non-Reactive Normal Nonreactive [facility] Comment on above: Performed By: #### L 509.8002, L100.0100, L3890.6006, L501.0250 #### [facility] [address] [place], [address] Laboratory - Chemistry and C hemistry - challengeOrdered By: Maris Aragon on 04-02-2024 Glucose Ql (U) Negative [facility] Laboratory - Microbiology an d Antimicrobial susceptibilityOrdered By: Earline Andrade on 04-02-2024 HBV surface Ag Ql (S) Non-Reactive Nonreactive [facility] Comment on above: Reactive: Presumptiv e evidence of HBV. Repeatedly reactive samples must be confirmed using a neutralization test (Elecsys HBsAg Confirmatory Test)Non-Reactive: HBsAg not detected; does not exclude the possibility of exposure to HBV Laboratory - UrinalysisOrder ed By: Maris Aragon on 04-02-2024 Protein Ql (U) Negative [facility] Lymphocytes Auto (Unsp spec) [#/Vol]Ordered By: Earline Andrade on 04-02-2024 Lymphocytes (Bld) [#/Vol] 2.43 10*3/uL 0.83-4.51 [facility] Lymphocytes/100 WBC Auto (Un sp spec)Ordered By: Earline Andrade on 04-02-2024 Lymphocytes/100 WBC (Bld) 24.8 % 19-41 [facility] MCV (mean corpuscular volume ) determinationOrdered By: Earline Andrade on 04-02-2024 MCV (RBC) [Entitic vol] 83.2 fL 81-99 [facility] Mean corpuscular hemoglobin (MCH) determinationOrdered By: Earline Andrade on 04-02-2024 MCH (RBC) [Entitic mass] 28.1 pg 27.0-32.0 [facility] Mean corpuscular hemoglobin concentration (MCHC) determinationOrdered By: Earline Andrade on 04-02-2024 MCHC (RBC) [Mass/Vol] 33.8 g/dL 32-36 [facility] Mean platelet volume determi nationOrdered By: Earline Andrade on 04-02-2024 Platelet mean volume (Bld) [Entitic vol] 11.4 fL 6.2-12.0 [facility] Miscellaneous procedureOrder ed By: Earline Andrade on 04-02-2024 Miscellaneous Test Comment SEE SCANNED REPORT [facility] Monocyte percentageOrdered B y: Earline Andrade on 04-02-2024 Monocytes/100 WBC (Bld) 5.2 % 0-10 [facility] NATERAon 04-02-2024 NATURA SEE SCANNED REPORT Normal [facility] Comment on above: Performed By: #### L 509.8002, BTS, L900.0098, L3890.6102, L100.0100, L501.9985, L3890.6301, L3890.6006, L509.4006 #### [facility] Laboratory [address] [place], [address] Neutrophil percentageOrdered By: Earline Andrade on 04-02-2024 Neutrophils/100 WBC (Bld) 68.1 % 47-70 [facility] No Panel InformationOrdered By: Earline Andrade on 04-02-2024 HIV (1&2) Antibody Non-Reactive Nonreactive [facility] Comment on above: Non-ReactiveReactive Repeatedly reactive samples must be confirmed according to CDC recommended confirmatory algorithms. The subresults for either HIVAG or AHIV can be used as an aid in the selection of the confirmation algorithm for reactive samples.Send out specimens with Reactive results to [facility] for confirmation.Order the HIV antibody detection and differentiation: #[id number] Rubella IgG Antibody REAC Nonreactive [facility] Comment on above: Antibody Result: Int erpretationNon-Reactive: Non-ImmuneReactive: ImmuneThe following results were obtained with the Elecsys Rubella IgG assay. Results from assays of other manufacturers cannot be used interchangeably. Syphilis Total Antibody Non-Reactive Nonreactiv e [facility] Nucleated red blood cell per centageOrdered By: Earline Andrade on 04-02-2024 Nucleated RBC/100 WBC (Bld) [Ratio] 0 % 0-5 [facility] Roller Skate Repairer Office Visit Reporton 04-02-2024 Roller Skate Repairer Office Visit Report [facility]'[address], [address] [place] [address] OFFICE VISIT Date of Service: 04/02/24 MR#: [id number] Acct: [id number] Name: SAMEER CABALLERO Rep #: [id number] : 1990 Provider: Dr. 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 Is patient in pain?: No Feel stressed/tense/nervou s/anxious/difficulty sleeping: not at all Allergies No Known Allergies Allergy (Verified 04/02/24 09:20) Medications ???Medication ???Instructions ???Recorded ???Confirmed ???Type multivit-min no.71-iron fum 28 cap PO 02/23/24 04/02/24 History mg-folate no.1 1 mg-dha 300 mg capsule (PNV-[place]) Last Menstrual Period: 12/21/23 Zika: Zika virus screening: Negative : No Have you fallen in the past year?: No PFSH PFSH Medical History Seasonal allergies History of frequent headaches Surgical History Ackerly teeth extracted Family History Grandmother CVA (cerebral vascular accident) Maternal Diabetes Maternal Grandfather Myocardial infarction, Onset Age: 54 Maternal Social History adopted: No household members: spouse housing: house number of children: 0 current occupational status: employed current occupation: [employer] current occupational exposures/hazards: No pets and animals: [...] physical activity do you participate in: none ganesh/protestant: Samaritan seatbelt use: always do you feel safe [...] use, Childb (more content not included)... Normal [facility] Platelet countOrdered By: Ishan Andrade on 04-02-2024 Platelets (Bld) [#/Vol] 269 10*3/uL 150-450 [facility] RBC Auto (d) [#/Vol]Ordere d By: Earline Andrade on 04-02-2024 RBC (Bld) [#/Vol] 4.63 10*6/uL 4.2-5.4 [facility] Type AND Screenon 04-02-2024 Ab SCREEN GEL Negative Normal [facility] Comment on above: Order Comment: PN Performed By: #### L 509.8002, BTS, L900.0098, L3890.6102, L100.0100, L501.9985, L3890.6301, L3890.6006, L509.4006 #### [facility] Laboratory [address] [place], [address] White blood cell (WBC) count Ordered By: Earline Andrade on 04-02-2024 WBC (Bld) [#/Vol] 9.8 10*3/uL 4.4-11.0 [facility] Chlamydia/GC MICAH aptimaon CHLAMY,NUC ACID Negative Normal Negative [facility] Comment on above: Performed By: #### L 509.8002, L100.0100, L3890.6006, L501.0250 #### [facility] Laboratory [address] [place], [address] GC BY NUC ACID Negative Normal Negative [facility] Comment on above: Result Comment: Perf ormed at: =G - [facility] [address] [id number] Residential Building Inspector: Lori Coppola MD, Phone: [phone] Performed By: #### L 509.8002, L100.0100, L3890.6006, L501.0250 #### [facility] Laboratory [address] [place], [address] Urine Cultureon 03-02-2024 URC Culture exhibits no growth. Normal [facility] Comment on above: Performed By: #### L 509.8002, L100.0100, L3890.6006, L501.0250 #### [facility] Laboratory [address] [place], [address] C. trachomatis rRNA MICAH+prob e Ql (Unsp spec)Ordered By: Earline Andrade on 03-01-2024 Chlamydia DNA (MICAH) Negative Negative [facility] Chlamydia trachomatis rRNA d etection by probe and target amplification methodOrdered By: Earline Andrade on 03-01-2024 C. trachomatis rRNA MICAH+probe Ql (Unsp spec) Negative Negative [facility] Neisseria gonorrhoeae nuclei c acid detection by amplified probe techniqueOrdered By: Earline Andrade on 03-01-2024 N. gonorrhoeae DNA MCIAH+probe Ql (Unsp spec) Negative Negative [facility] Comment on above: Performed at: =[address] [id number] Director: Lori Coppola MD, Phone: [phone] Roller Skate Repairer Office Visit Reporton 03-01-2024 Roller Skate Repairer Office Visit Report [facility]'s [address], [address] [place] [address] OFFICE VISIT Date of Service: 03/01/24 MR#: [id number] Acct: [id number] Name: SAMEER CABALLERO Rep #: [id number] : 1990 Provider: MARIO Fournier ams Age/Sex: 33/F [place] [facility] [place]: Signed Intake Vital Signs 12/25/23 07:48 03/01/24 14:33 Height 5 ft 5 in 5 ft 5 in Weight: 268 lb 267 lb 2 oz BMI 44.6 44.4 BP 132/85 H 137/83 H 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, LMP 12/20, LORY 09/26/24 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 Is patient in pain?: No Allergies No Known Allergies Allergy (Verified 03/01/24 14:31) Medications ???Medication ???Instructions ???Recorded ???Confirmed ???Type multivit-min no.71-iron fum 28 cap PO 02/23/24 02/23/24 History mg-folate no.1 1 mg-dha 300 mg capsule (PNV-[place]) Last Menstrual Period: 12/21/23 Zika: Zika virus screening: Negative : Yes Have you fallen in the past year?: No PFSH PFSH Medical History Seasonal allergies History of frequent headaches Surgical History Ackerly teeth extracted Family History Grandmother CVA (cerebral vascular accident) Maternal Diabetes Maternal Grandfather Myocardial infarction, Onset Age: 54 Maternal Social History adopted: No household members: spouse housing: house number of children: 0 service: No current occupational status: employed current occupation: [employer] current occupational exposures/hazards: No pets and animals: Yes pets and animals: dog(s) history of recent travel: Yes ([employer] [place] in January) out of state: Yes [...] physical activity do you participate in: none ganesh/protestant: Samaritan seatbelt use: always do you feel safe [...] Genetic Disease: (more content not included)... Normal [facility] Urine cultureOrdered By: Riccardo Andrade on 03-01-2024 Bacteria identified Cx Nom (U) Culture exhibits no growth. [facility] PAP IG HPV APTIMA 16/18,45on 01-01-2024 ADEQ Comment Normal . [facility] Comment on above: Order Comment: Speci men Comment: [id number] Specimen Comment: Source.............Cervix Specimen Comment: No. of containers..01 ThinPrep Vial Result Comment: Sati sfactory for evaluation. Endocervical and/or squamous metaplastic cells (endocervical component) are present. Performed By: #### L 7400.0280 #### [facility] Laboratory [address] [place], [place], [address] COMM . Normal . [facility] Comment on above: Order Comment: Speci men Comment: [id number] Specimen Comment: Source.............Cervix Specimen Comment: No. of containers..01 ThinPrep Vial Performed By: #### L 7400.0280 #### [facility] Laboratory [address] [place], [address] COMMENT Comment Normal . [facility] Comment on above: Order Comment: Speci men Comment: [id number] Specimen Comment: Source.............Cervix Specimen Comment: No. of containers..01 ThinPrep Vial Result Comment: This liquid based ThinPrep(R) pap test was screened with the use of an image guided system. Performed By: #### L 7400.0280 #### [facility] [address] [place], [place], [address] DIAG Comment Normal . [facility] Comment on above: Order Comment: Speci men Comment: [id number] Specimen Comment: Source.............Cervix Specimen Comment: No. of containers..01 ThinPrep Vial Result Comment: NEGA TIVE FOR INTRAEPITHELIAL LESION OR MALIGNANCY. Performed By: #### L 7400.0280 #### [facility] Laboratory [address] [place], [place], [address] HPV APTIMA, HR Positive Abnormal Negative [facility] Comment on above: Order Comment: Speci men Comment: [id number] Specimen Comment: Source.............Cervix Specimen Comment: No. of containers..01 ThinPrep Vial Result Comment: This nucleic acid amplification test detects fourteen high- risk HPV types (16,18,31,33,35,39,45,51,52,56,58,59,66,68) without differentiation. Performed By: #### L 7400.0280 #### [facility] Laboratory [address] [place], [place], [address] HPV Lizette 18,45 Positive Abnormal Negative [facility] Comment on above: Order Comment: Speci men Comment: [id number] Specimen Comment: Source.............Cervix Specimen Comment: No. of containers..01 ThinPrep Vial Result Comment: Perf ormed at: [address] [id number] Residential Building Inspector: Alexandro Burrell PhD, Phone: [phone] Performed at: [address] [id number] Residential Building Inspector: Lori Coppola MD, Phone: [phone] Performed at: =[address] [id number] Residential Building Inspector: Lori Coppola MD, Phone: [phone] Performed By: #### L 7400.0280 #### [facility] [address] [place], [address] HPV Lizette Rfx Comment Normal . [facility] Comment on above: Order Comment: Speci men Comment: [id number] Specimen Comment: Source.............Cervix Specimen Comment: No. of containers..01 ThinPrep Vial Result Comment: Yecenia chávez, see HPV Genotype results. Performed By: #### L 7400.0280 #### [facility] [address] [place], [address] HPV Genotype 16 Negative Normal Negative [facility] Comment on above: Order Comment: Speci men Comment: [id number] Specimen Comment: Source.............Cervix Specimen Comment: No. of containers..01 ThinPrep Vial Performed By: #### L 7400.0280 #### [facility] [address] [place], [address] PAPSMR Comment Normal . [facility] Comment on above: Order Comment: Speci men Comment: [id number] Specimen Comment: Source.............Cervix Specimen Comment: No. of [...] occur. Performed By: #### L 7400.0280 #### [facility] Laboratory [address] [place], [address] PERFORM Comment Normal . [facility] Comment on above: Order Comment: Speci men Comment: [id number] Specimen Comment: Source.............Cervix Specimen Comment: No. of containers..01 ThinPrep Vial Result Comment: Maritza Silva, Furniture Removalist'S Assistant (ASCP) Performed By: #### L 7400.0280 #### [facility] [address] [place], [address] Typists Supervisor Cyto stain Nom (C vx/Vag) [ID]Ordered By: Laura Lechuga on 12-25-2023 Pap Smear Performed By Comment . [facility] Comment on above: Cata Silva, Cyto technologist (ASCP) Cytology report Cyto stain D oc (Cvx/Vag)Ordered By: Laura Lechuga on 12-25-2023 Thin Prep Pap Smear Comment . [facility] Comment on above: The Pap smear [...] 12-25-2023 HPV Genotype Special Info Comment . [facility] Comment on above: Criteria met, see HP V Genotype results. HPV 16 DNA Probe+sig amp Ql (Cvx)Ordered By: Laura Lechuga on 12-25-2023 HPV Type 16 Comment Negative Negative [facility] HPV 16+18+31+33+35+39+45+51+ 52+56+58+59+66+68 DNA Probe+sig amp Ql (Cvx)Ordered By: Laura Lechuga on 12-25-2023 Human Papillomavirus High Risk Positive High Negative [facility] Comment on above: This nucleic acid am plification test detects fourteen high-risk HPV types (16,18,31,33,35,39,45,51,52,56,58,59,66,68)without differentiation. HPV E6+E7 mRNA MICAH+probe Ql (Cvx)Ordered By: Laura Lechuga on 12-25-2023 HPV Type 18 Comment Positive High Negative [facility] Comment on above: Performed at: [facility] [place], [place] [id number] Director: Alexandro Burrell PhD, Phone: [phone] at: [address] [id number] Director: Lori Coppola MD, Phone: [phone] at: =[facility] [id number] Director: Lori Coppola MD, Phone: [phone] Image-guided ThinPrep PapOrd ered By: Laura Lechuga on 12-25-2023 Pap Smear Note Comment . [facility] Comment on above: This liquid based Th inPrep(R) pap test was screened withthe use of an image guided system. Image-guided liquid-based Pa pOrdered By: Laura Lechuga on 12-25-2023 Pap Smear Diagnosis Comment . [facility] Comment on above: NEGATIVE FOR INTRAEP ITHELIAL LESION OR MALIGNANCY. 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 Is patient in pain?: No Allergies No Known Allergies Allergy (Unverified 12/25/23 07:49) Medications ???Medication ???Instructions ???Recorded ???Confirmed ???Type NK 12/25/23 12/25/23 History Is last menstrual period known: Yes Last Menstrual Period: 12/21/23 Post menopausal: No Patient : No : No Do you think of yourself as: straight/heterosexual Current gender identity: female Control Method: none [facility] Medical History (Updated 12/25/23 @ 07:55 by Tiffanie Mckeon) Seasonal allergies History of frequent headaches Family History (Updated 12/25/23 @ 07:56 by Tiffanie Mckeon) Other CVA (cerebral vascular accident) Diabetes Heart disease Social History adopted: No household members: spouse housing: house number of children: 0 current occupational status: employed current occupation: [employer] current occupational exposures/hazards: No pets and animals: [...] physical activity do you participate in: none ganesh/protestant: Samaritan seatbelt use: always do you feel safe at home: Yes additional social history: - Mc - hankins HPI Encounter for routine gynecological examination Details: SAMEER CABALLERO is a 33 year old who presents for annual exam. Has not been to a pilot captain since 2018ish. She is unsure where this [...] size normal (more content not included)... Normal [facility] Service comment (Unsp spec) [Interp]Ordered By: Laura Lechuga on 12-25-2023 Pap Smear Comment (3) . . [facility] Vital Signs Date Time Vital Sign Value Performing Clinician Faci lity 08-26-2024 10:22-0400 Diastolic blood pressure 62 mm[Hg] No Primary Care Physician [facility] 08-26-2024 10:22-0400 Heart rate 87 /min No Primary Care Physician [facility] 08-26-2024 10:22-0400 Systolic blood pressure 136 mm[Hg] No Primary Care Physician [facility] 08-26-2024 09:49-0400 Body height 165.1 cm No Primary Care Physician [facility] 08-26-2024 09:49-0400 Body mass index (BMI) [Ratio] 50.6 kg/m2 No Primary Care Physician [facility] 08-26-2024 09:49-0400 Body weight 138.1 kg No Primary Care Physician [facility] 08-26-2024 09:46-0400 Respiratory rate 16 /min No Primary Care Physician [facility] 08-26-2024 08:40-0400 Body height 165.1 cm No Primary Care Physician [facility] 08-26-2024 08:40-0400 Body mass index (BMI) [Ratio] 50.4 kg/m2 No Primary Care Physician [facility] 08-26-2024 08:40-0400 Body weight 137.55 kg No Primary Care Physician [facility] 08-26-2024 08:40-0400 Diastolic blood pressure 84 mm[Hg] No Primary Care Physician [facility] 08-26-2024 08:40-0400 Systolic blood pressure 127 mm[Hg] No Primary Care Physician [facility] 08-19-2024 08:37-0400 Body height 165.1 cm No Primary Care Physician [facility] 08-19-2024 08:37-0400 Body mass index (BMI) [Ratio] 49.6 kg/m2 No Primary Care Physician [facility] 08-19-2024 08:37-0400 Body weight 135.34 kg No Primary Care Physician [facility] 08-19-2024 08:37-0400 Diastolic blood pressure 77 mm[Hg] No Primary Care Physician [facility] 08-19-2024 08:37-0400 Systolic blood pressure 126 mm[Hg] No Primary Care Physician [facility] 08-12-2024 08:11-0400 Body mass index (BMI) [Ratio] 49.4 kg/m2 No Primary Care Physician [facility] 08-12-2024 08:11-0400 Body weight 134.88 kg No Primary Care Physician [facility] 08-12-2024 08:11-0400 Diastolic blood pressure 84 mm[Hg] No Primary Care Physician [facility] 08-12-2024 08:11-0400 Systolic blood pressure 130 mm[Hg] No Primary Care Physician [facility] 07-30-2024 08:28-0400 Body height 165.1 cm No Primary Care Physician [facility] 07-30-2024 08:22-0400 Body mass index (BMI) [Ratio] 48.6 kg/m2 No Primary Care Physician [facility] 07-30-2024 08:22-0400 Body weight 132.44 kg No Primary Care Physician [facility] 07-30-2024 08:22-0400 Diastolic blood pressure 78 mm[Hg] No Primary Care Physician [facility] 07-30-2024 08:22-0400 Systolic blood pressure 118 mm[Hg] No Primary Care Physician [facility] 07-16-2024 15:29-0400 Body height 165.1 cm No Primary Care Physician [facility] 07-16-2024 15:29-0400 Body mass index (BMI) [Ratio] 49.1 kg/m2 No Primary Care Physician [facility] 07-16-2024 15:29-0400 Body weight 133.92 kg No Primary Care Physician [facility] 07-16-2024 15:29-0400 Diastolic blood pressure 74 mm[Hg] No Primary Care Physician [facility] 07-16-2024 15:29-0400 Systolic blood pressure 120 mm[Hg] No Primary Care Physician [facility] 06-24-2024 15:33-0400 Body height 165.1 cm No Primary Care Physician [facility] 06-24-2024 15:31-0400 Body mass index (BMI) [Ratio] 48.4 kg/m2 No Primary Care Physician [facility] 06-24-2024 15:31-0400 Body weight 132.1 kg No Primary Care Physician [facility] 06-24-2024 15:31-0400 Diastolic blood pressure 83 mm[Hg] No Primary Care Physician [facility] 06-24-2024 15:31-0400 Systolic blood pressure 127 mm[Hg] No Primary Care Physician [facility] 05-29-2024 07:25-0400 Body mass index (BMI) [Ratio] 47.5 kg/m2 No Primary Care Physician [facility] 05-29-2024 07:25-0400 Body weight 129.44 kg No Primary Care Physician [facility] 05-29-2024 07:25-0400 Diastolic blood pressure 80 mm[Hg] No Primary Care Physician [facility] 05-29-2024 07:25-0400 Systolic blood pressure 120 mm[Hg] No Primary Care Physician [facility] 05-02-2024 08:23-0400 Body mass index (BMI) [Ratio] 46.3 kg/m2 No Primary Care Physician [facility] 05-02-2024 08:23-0400 Body weight 126.15 kg No Primary Care Physician [facility] 05-02-2024 08:23-0400 Diastolic blood pressure 84 mm[Hg] No Primary Care Physician [facility] 05-02-2024 08:23-0400 Systolic blood pressure 126 mm[Hg] No Primary Care Physician [facility] 04-02-2024 09:19-0500 Body height 165.1 cm Laura GABRIEL Work Phone: [facility] 04-02-2024 09:19-0500 Body mass index (BMI) [Ratio] 44.1 kg/m2 Laura Barkman [employer] Work Phone: [facility] 04-02-2024 09:19-0500 Body weight 120.42 kg Laura Barkman [employer] Work Phone: [facility] 04-02-2024 09:19-0500 Diastolic blood pressure 86 mm[Hg] Laura Barkman [employer] Work Phone: [facility] 04-02-2024 09:19-0500 Systolic blood pressure 133 mm[Hg] Laura Barkman [employer] Work Phone: [facility] 03-01-2024 14:33-0500 Body mass index (BMI) [Ratio] 44.4 kg/m2 Laura Barkman [employer] Work Phone: [facility] 03-01-2024 14:33-0500 Body weight 121.16 kg Laura Barkman [employer] Work Phone: [facility] 03-01-2024 14:33-0500 Diastolic blood pressure 83 mm[Hg] Laura Barkman [employer] Work Phone: [facility] 03-01-2024 14:33-0500 Systolic blood pressure 137 mm[Hg] Laura Barkman [employer] Work Phone: [facility] 12-25-2023 07:48-0500 Body mass index (BMI) [Ratio] 44.6 kg/m2 Laura Barkman [employer] Work Phone: [facility] 12-25-2023 07:48-0500 Body weight 121.56 kg Laura Barkman [employer] Work Phone: [facility] 12-25-2023 07:48-0500 Diastolic blood pressure 85 mm[Hg] Laura Barkman [employer] Work Phone: [facility] 12-25-2023 07:48-0500 Systolic blood pressure 132 mm[Hg] Laura Lechuga [employer] Work Phone: [facility] Encounters Encounter Date Encounter Type Care Provider Facility Start: 08-26-2024 Non-patient / Non-visit Earline Andrade CNM -[facility] Start: 08-26-2024 End: 08-26-2024 ambulatory No Primary Care Physician Facility:[facility] Start: 08-26-2024 End: 08-26-[address] Maris Aragon MD -[facility] Work Phone: Start: 08-21-2024 End: 08-21-2024 Patient encounter procedure Shea Rodriguez [employer] -[facility] Work Phone: Start: 08-21-2024 End: 08-21-2024 ambulatory No Primary Care Physician Facility:[facility] Start: 08-19-2024 End: 08-19-[address] Rhina Sweeney DO -[facility] Work Phone: Start: 08-19-2024 End: 08-19-2024 ambulatory No Primary Care Physician -[facility] Start: 08-12-2024 End: 08-12-[address] Rhina Sweeney DO -[facility] Work Phone: Start: 08-12-2024 End: 08-12-2024 ambulatory No Primary Care Physician Facility:[facility] Start: 07-30-2024 End: 07-30-2024 Patient encounter procedure Shea Rodriguez [employer] -[facility] Work Phone: Start: 07-30-2024 End: 07-30-2024 ambulatory No Primary Care Physician [facility] Work Phone: Start: 07-22-2024 End: 07-22-2024 ambulatory No Primary Care Physician [facility] Work Phone: Start: 07-22-2024 End: 07-22-2024 Patient encounter procedure Shea Rodriguez [employer] -Ultrasound [facility] Work Phone: Start: 07-22-2024 End: 07-22-2024 ambulatory No Primary Care Physician Facility:[facility] Start: 07-16-2024 End: 07-16-2024 Patient encounter procedure Shea GABRIEL -[facility] Work Phone: Start: 07-16-2024 End: 07-16-2024 ambulatory No Primary Care Physician [facility] Work Phone: Start: 07-03-2024 End: 07-03-2024 ambulatory No Primary Care Physician [facility] Work Phone: Start: 07-03-2024 End: 07-03-[address] Rhina Sweeney DO -Laboratory Work Phone: Start: 07-03-2024 End: 07-03-2024 ambulatory Rhina Sweeney Facility:[facility] Start: 06-24-2024 End: 06-24-[address] Rhina Sweeney DO -[facility] Work Phone: Start: 06-24-2024 End: 06-24-2024 ambulatory No Primary Care Physician [facility] Work Phone: Start: 06-24-2024 End: 06-24-2024 ambulatory No Primary Care Physician Facility:[facility] Start: 05-29-2024 End: 05-29-2024 Patient encounter procedure Earline Andrade CNM -[facility] Start: 05-29-2024 End: 05-29-2024 ambulatory No Primary Care Physician Facility:[facility] Start: 05-23-2024 End: 05-23-2024 ambulatory MARIS ARAGON [facility] Start: 05-07-2024 End: 05-07-2024 ambulatory NO PRIMARY CARE [facility] Start: 05-02-2024 End: 05-02-2024 Patient encounter procedure Shea GABRIEL -[facility] Work Phone: Start: 05-02-2024 End: 05-02-2024 ambulatory No Primary Care Physician Facility:[facility] Start: 04-02-2024 End: 04-02-[address] Maris Aragon MD -[facility] Work Phone: Start: 04-02-2024 End: 04-02-2024 ambulatory Laura GABRIEL Work Phone: [facility] Work Phone: Start: 04-02-2024 End: 04-02-2024 ambulatory No Primary Care Physician Facility:[facility] Start: 03-01-2024 End: 03-01-2024 Patient encounter procedure Earline Andrade CNM -Laboratory, Spec[facility] Work Phone: Start: 03-01-2024 End: 03-01-2024 Patient encounter procedure Earline Andrade CNM -[facility] Work Phone: Start: 03-01-2024 End: 03-01-2024 ambulatory No Primary Care Physician Facility:[facility] Start: 03-01-2024 End: 03-01-2024 ambulatory No Primary Care Physician Facility:[facility] Start: 12-25-2023 End: 12-25-2023 Patient encounter procedure Laura GABRIEL -Labor[facility], [facility] Work Phone: Start: 12-25-2023 End: 12-25-2023 Patient encounter procedure Laura GABRIEL -[facility] Start: 12-25-2023 End: 12-25-2023 Patient encounter status Laura GABRIEL [facility] Start: 12-25-2023 End: 12-25-2023 ambulatory Laura Lechuga Facility:[facility] Start: 12-25-2023 End: 12-25-2023 ambulatory Laura Lechuga Facility:[facility] Procedures Date Procedure Procedure Detail Performing Clinician Start: 08-26-2024 End: 08-26-2024 Bacterial nucleic acid assay No Primary Care Physician Start: 08-26-2024 Urnls dip stick/tabl et reagent auto microscopy No Primary Care Physician Start: 08-26-2024 Ultrasonography for biophysical profile without non-stress testing No Primary Care Physician Start: 08-21-2024 Ultrasound scan for growth No Primary Care Physician Start: 07-22-2024 Ultrasound scan for growth No [...] HCV Quant by PCR testing - HCVPCR #[id number] Non Reactive: < 0.8 Equivocal: >/= 0.8 to < 1.0 Reactive: >/= 1.0The CDC requires that a reactive/equivocal HCV antibody result be sent out for confirmation. HCV Quant by PCR testing. Start: 04-02-2024 Procedure No Primary Care Physician Start: 03-01-2024 Urine culture Laura chavarria [employer] Work Phone: Plan of Treatment Date Care Activity Detail Author Start: 08-26-2024 Bacteria identified in Urine by Culture Urine Culture [facility] Start: 08-26-2024 Group B Streptococcus Culture Group B Streptococcus Culture [facility] Start: 08-26-2024 [facility] Start: 08-26-2024 Nonstress test [facility] Start: 08-26-2024 Biophysical profile panel US [facility] Start: 08-26-2024 Obstetric monitoring [facility] Start: 08-26-2024 Ultrasonography for biophysical profile without non-stress testing OB Biophysical Prof W/O NST [facility] Start: 08-26-2024 Vital signs measurements [facility] Start: 08-26-2024 End: 08-26-2024 [facility] Start: 08-26-2024 Patient discharge [facility] Start: 06-24-2024 CBC W Auto Differential panel - Blood [facility] Start: 06-24-2024 Measurement of glucose 2 hours after glucose challenge for glucose tolerance test [facility] Start: 06-24-2024 Serologic test for syphilis [facility] Start: 06-24-2024 [facility] Beta-hemolytic Streptococcus culture [facility] Erythrocyte mean corpuscular volume determination [facility] Biophysical pr ofile panel US [facility] Hematocrit [Volume Fraction] of Blood [facility] Hemoglobin [Mass/vol ume] in Blood [facility] Leukocytes [#/volume ] in Blood [facility] Mean corpuscular hemoglobin concentration determination [facility] Mean corpuscular hemoglobin determination [facility] Neutrophil count [facility] Neutrophil percent differential count [facility] Patient Education Kick Counts ED False Labor OB Triage: Return to Hospital or Notify Physician if you Experience: [facility] Work Phone: Platelets [#/volume] in Blood [facility] Red blood cell count [facility] Red cell distributio n width determination [facility] Ultrasound scan for growth [facility] Urine culture [facility] Immunizations Immunization Date Immunization Notes Care Provider Fa cility 07-16-2024 tetanus toxoid, redu geneva diphtheria toxoid, and acellular pertussis vaccine, adsorbed No Primary Care Physician [facility] Payers Date Payer Category Payer Self-pay 2023 Unknown [id number] 1990 Unknown [id number] 2. [id number] 1990 Unknown [id number] 2.16. [id number] Unknown [id number] 2.16.8 [id number] Unknown [id number] 2.16.8 [id number] Unknown [id number] 2.16.8 [id number] Unknown [id number] 2.16.8 40.1.812999.3.579.2.462 Unknown [id number] 2.16.8 40.1.049265.3.579.2.462 Unknown [id number] 2.16.8 40.1.225627.3.579.2.462 Unknown [id number] 2.16.8 40.1.715773.3.579.2.462 Unknown [id number] 2.16.8 40.1.795419.3.579.2.462 Unknown [id number] 2.16.8 40.1.269870.3.579.2.462 Unknown [id number] 2.16.8 40.1.121964.3.579.2.462 Unknown [id number] 2.16.8 40.1.062994.3.579.2.462 Unknown [id number] 2.16.8 40.1.203467.3.579.2.462 Unknown [id number] 2.16.8 40.1.882583.3.579.2.462 Unknown [id number] 2.16.8 40.1.753674.3.579.2.462 Unknown [id number] 2.16.8 40.1.978841.3.579.2.462 Unknown [id number] 2.16.8 40.1.392319.3.579.2.462 Unknown [id number] 2.16.8 40.1.553849.3.579.2.462 Unknown [id number] 2.16.8 [id number] Social History Date Type Detail Facility Start: 02-23-2024 End: 05-02-2024 Tobacco smoking status [facility] Never smoked tobacco (finding) [facility] Start: 04-14-2024 Sex Male (finding) [facility] Start: 1990 Sex Assigned At Female [facility] Gender Identity Identifies as fe male gender (finding) [facility] Sexual Orientation Heterosexual (finding) [facility] Medical Equipment Procedure Code Equipment Code Equipment Origin al Text Equipment Identifier Dates Blood Sugar Diagnostic (Blood Glucose Test) strip Start: 07-03-2024 [facility] Start: 07-03-2024 Blood Sugar Diagnostic (Blood Glucose [...] misc Start: 07-03-2024 Clinical Notes 12-25-2023 to 08-26-2024 Note Date & Type Note Facility 08-26-2024 Progress note [facility] 08-21-2024 Radiology Diagnostic study note [facility] Imaging Services [address], [place] [address] OB Limited With Biometrics MR#: [id number] Acct: [id number] Name: SAMEER CABALLERO Rep #: [id number] : 1990 F 34 From: Armani Jalloh MD PCP: Care Physician,No Primary Status: REG CLI Study:OB Limited With Biometrics Date of Exam : 08/21/24 Exam# [id number] Ordering Dr: Shea Rodriguez [employer] PROCEDURE: OB LIMITED WITH BIOMETRICS 08/21/2024 REASON FOR EXAM: GROWTH Large for dates. TECHNIQUE: OB LIMITED WITH BIOMETRICS COMPARISON: Prior study dated July 22, 2024. FINDINGS Number: 1 Position: Vertex Placental Position: Posterior and not low-lying. Placental Abnormalities: No evidence of previa. DIMENSIONS: Biparietal Diameter: 9.4 cm: 38 weeks and 2 days: 100 percentile/ Head Circumference: 32.5 cm: 36 weeks and 5 days: 64 percentile/ Abdominal Circumference: 33.2 cm: 37 weeks and 1 day: 97 percentile/ Femur Length: 7.2 cm: 37 weeks and 1 day: 91st percentile/ ESTIMATED WEIGHT: 3220 g plus/-483 g ESTIMATED WEIGHT PERCENTILE (24+ weeks): 97 ESTIMATED GESTATIONAL AGE: Baseline: 34 weeks and 6 days By Ultrasound: 36 weeks and 6 days ESTIMATED DATE OF DELIVERY: Baseline: September 26, 2024 By Ultrasound: September 12, 2024 BIOPHYSICAL ASSESSMENT: Amniotic Fluid Volume: 5.3 cm Amniotic Fluid Index: 11.5 (8-24 cm normal range) Cardiac Motion: 145 beats per minute (average) Trunk and Limb Motion: Present. MATERNAL ANATOMY: Adnexa: Neither maternal ovary is successfully identified. US/OB Limited With Biometrics IMPRESSION: Single live intrauterine gestation with a mean gestational age of 37 weeks and 1day. The measurements obtained today fall with the normal expected range. Reading Location: [place] [address] CC: [employer] Shea Rodriguez; No Primary Care Physician ~ Fruit Buying Grader: Signed [facility] 07-23-2024 Radiology Diagnostic study note [facility] Imaging Services [address] [place] [address] OB Limited With Biometrics MR#: [id number] Acct: [id number] Name: SAMEER CABALLERO Rep #: [id number] : 1990 F 34 From: Armani Jalloh MD PCP: Care Physician,No Primary Status: REG CLI Study:OB Limited With Biometrics Date of Exam : 07/22/24 Exam# [id number] Ordering Dr: Shea Rodriguez NP [employer] PROCEDURE: OB LIMITED WITH BIOMETRICS 07/22/2024 REASON [...] of 33 weeks and 0days. Reading Location: [place] [address] CC: NERY Rodriguze; No Primary Care Physician ~ Fruit Buying Grader: Signed [facility] 06-24-2024 Progress note [facility] 06-24-2024 Progress note Note Date/Time June 24, 2024 3:50pm [facility] [address], [address] [place] [address] OFFICE VISIT Date of Service: 06/24/24 MR#: [id number] Acct: [id number] Name: SAMEER CABALLERO Rep #: [id number] : 1990 Provider: Dr. 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 Is patient in pain?: No Allergies No Known Allergies Allergy (Verified 06/24/24 15:31) Medications ?Medication ?Instructions ?Recorded ?Confirmed ?Type multivit-min no.71-iron fum 28 cap PO 02/23/24 5 History mg-folate no.1 1 mg-dha 300 mg capsule (PNV-[place]) Last Menstrual Period: 12/21/23 Zika: Zika virus screening: Negative : No PFSH PFSH Medical History Seasonal allergies History of frequent headaches Surgical History [place]cker[place] teeth extracted Family History Grandmother CVA (cerebral vascular accident) Maternal Diabetes Maternal Grandfather Myocardial infarction, Onset Age: 54 Maternal Social History adopted: No household members: spouse housing: house number of children: 0 current occupational status: employed current occupation: [employer] current occupational exposures/hazards: No pets and animals: [...] physical activity do you participate in: none ganesh/protestant: [employer]aritan seatbelt use: always do you feel safe [...] -?-?-?-?-?-?-?-?-?-?-?-?- Negative 155 -?-?-?-?-?-?-?-?-?-?-?-?- Sm- no vb ingridi ng labs today 05/02/24 -?-?-?-?-?-?-?-?-?-?-?-?- 19w 0d [...] Symptoms of Preeclampsia, Infant Feeding No , Education and Family Medical Leave or Disability [...] high risk , unspecified, second trimester 06/24/24 8180 <Electronically signed by Rhina Torres DO> Date _ Rhina Garland Signature: Date (if applicable) CC: ~ [facility] Work Phone: 1(905) 356-857603-27-2025 Evaluation note* Diagnosis Onset Date Resolution Status [...] 8:07am 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 August 12, 2 025 8:07am LGA (large for gestational a [...] of high-risk acute August 19, 2024 8:32am [facility] Work Phone: 1(579) 403-525703-27-2025 Evaluation note* Diagnosis Onset Date Resolution Status [...] 8:07am 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 August 12, 8:07am LGA (large for gestational a ge) [...] of high-risk acute August 19, 2024 8:32am Abnormal glucose tolerance t est during , antepartum acute Aug 8:38am 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 August 26, 2024 8:38am LGA (large for gestational a ge) fetus affecting management of mother acute August 26, 2024 8:38am Obesity affecting acute August 26, 2024 8:38am acute August 26 8:38am contractions acute August 26, 2024 8:38am Seasonal allergies acute August 072024 8:38am Supervision of high-risk acute August 26, 2024 8:38am [facility] Work Phone: 1(794) 971-124103-27-2025 Evaluation note* Diagnosis Onset Date Resolution Status [...] 8:07am 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 August 12, 2 025 8:07am LGA (large for gestational a [...] of high-risk acute August 19, 2024 8:32am Abnormal glucose tolerance t est during , antepartum acute Aug 8:38am 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 August 26, 2024 8:38am LGA (large for gestational a ge) fetus affecting management of mother acute August 26, 2024 8:38am Obesity affecting acute August 26, 2024 8:38am acute August 26 8:38am contractions acute August 26, 2024 8:38am Seasonal allergies acute August 072024 8:38am Supervision of high-risk acute August 26, 2024 8:38am Abnormal glucose tolerance t est during , antepartum acute Aug 9:37am 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 August 26, 2024 9:37am LGA (large for gestational a ge) fetus affecting management of mother acute August 26, 2024 9:37am Non-stress test nonreactive acute August 26, 2024 9:37am Obesity affecting acute August 26, 2024 9:37am acute August 26 9:37am contractions acute August 26, 2024 9:37am Seasonal allergies acute August 072024 9:37am Supervision of high-risk acute August 26, 2024 9:37am [facility] Work Phone: 1(356) 206-476202-25-2025 Evaluation note* Diagnosis Onset Date Resolution Status [...] high-risk acute June 24, 2024 3 :30pm [facility] Work Phone: 1([phone]) 154-862902-25-2025 Evaluation note* Diagnosis Onset Date Resolution Status Admit Date 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 April 022024 9:16am Obesity affecting acute April 02, 2024 9:16am acute April 02, 2024 9:16am Seasonal allergies acute 2024 9:16am Supervision of high-risk acute April 02, 9:16am 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 May 02, [...] of high-risk acute July 16, 2024 3:24pm [facility] Work Phone: 1(305) 755-104802-25-2025 Evaluation note* Diagnosis Onset Date Resolution Status [...] of high-risk acute July 16, 2024 3:24pm [facility] Work Phone: 1([phone]) 458-243402-25-2025 Evaluation note* Diagnosis Onset Date Resolution Status [...] of high-risk acute July 30, 2024 8:19am [facility] Work Phone: 1([phone]) 426-126501-24-2025 Evaluation note* Diagnosis Onset Date Resolution Status [...] high-risk acute June 24, 2024 3 :30pm [facility] Work Phone: 1(165) 516-616811-18-2024 NotePap Smear Specimen AdequacyNov2023 6:44pmComment.Satisfactory for evaluation. Endocervical and/or squamous metaplasticcells (endocervical component)are present.[facility] INTERFACED A#[id number] ClinicComment on above:Satisfactory for evaluation. Endocervical and/or squamous [...] 9:16am Supervision of high-risk acute April 02, 9:16am [facility] Work Phone: Progress note Author Earline Andrade [facility] Note Date/Time August 26, 2024 11:5 1am [facility] Medical Records Department [address] [place] [address] OB Triage Progress Note 08/26/24 1149 MR#: [id number] Acct: [id number] Name: SAMEER CABALLERO Rep #:[id number] : 1990 34 From: Earline Andrade CNM PCP: Care Physician,No Primary Status :REG CLI Y DOS: Location: [id number] Progress Notes Date of Service: 08/26/24 Progress Note: Patient presents for triage evaluation secondary to non reactive NST in the office at 35 weeks FHT: 140 Moderate variability reactive no decelerations category I tracing [place]: irregular Contractions Assessment and plan: BPP 09/13, Reactive NST, reassuring maternal and statuspatient discharged to home to follow-up in office at next appt. See problem list details for additional plan information. Laboratory Studies: Laboratory Tests 08/26/24 Range/Units 10:00 Urine Color Yellow (Yellow) Urine Clarity Cloudy (Clear) Urine pH 7.0 (5.0 - 8.0) Ur Specific [employer] [place] 1.015 (1.002-1.030) Urine Protein 15 H (Negative) mg/dl Urine Glucose (UA) Normal (Normal) mg/dl Urine Ketones Negative (Negative) mg/dl Urine Occult Blood Negative (Negative) /ul Urine Nitrite Negative (Negative) Urine Bilirubin Negative (Negative) mg/dL Urine Urobilinogen Normal (Normal) mg/dl Ur Leukocyte Esterase 25 H (Negative) /ul Charges/Coding Multi Select Codes Urinary/Genital Urinary/Genital CPT Codes: 58049-40 non-stress test Interp Assessment & Plan (1) Non-stress test nonreactive: COMMENT: in office BPP 09/13. reactive on WP. d/c home (2) contractions: (3) LGA (large for gestational age) fetus affecting management of mother: COMMENT: Growth US: 97%ile NST wkly at 34 wk. BS daily WNL. discussed R/B/A of IOL at 39 weeks 97th% overall and 100th% for head, start monitoring glucose levels fasting and 2 hour postprandial. Continue weekly NSTs. estimating to be 10 pounds so it wascommunicated that we may recommend a section if goes all the way to term. early induction is not always recommended as induction could result in thebaby getting stuck. If natural labor happens before 40 weeks we can see how it goes. (4) Abnormal glucose tolerance test during , antepartum: COMMENT: normal 3 hr, however the fasting was elevated. - monitor at home fasting levels: 2 wk of readings WNL except 2 and states high carb snack night prior. Will continue to monitor (5) Supervision of high-risk : QUALIFIERS: Trimester: third trimester Qualified Code(s): O09.93 - Supervision of high risk , unspecified, third trimester COMMENT: PRR, , LORY 09/26/24, Mc (6) Obesity affecting : QUALIFIERS: Trimester: third trimester Obesity type affecting : unspecified obesity Qualified Code(s): O99.213 - Obesity complicating , third trimester COMMENT: HgbA1c 5.2 , BMI 44. 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 Repeat pap 2024 @ pp visit (9) Seasonal allergies: 08/26/24 1151 <Electronically signed by Earline rutherford CNM> Date _ Earline Andrade CNM Cosigner Signature (if applicable): Date CC: MARIO Andrade; No Primary Care Physician ~ Signed [facility] Work Phone: Reason for referral (narrative)No reason for referral information availableWC[facility] Work Phone: 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 and Reason for Visit 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 Admit Date Annual (ALLERGIST/MD) December 25, 2023 7:33am PAP December 25, 2023 5:42pm New OB, LMP 12/20, LORY 09/26/24 February 072024 2:07pm 14wk OB April 02, 2024 9:16am Reason for Visit Admit Date Encounter for routine gynecological exam ination December 25, 2023 7:33am HPV in female March 01, 2024 2 :07pm Obesity affecting February 2:07pm March 01, 2024 2 :07pm Seasonal allergies March 01, 2024 2 :07pm Supervision of normal first Ja ary 2024 2:07pm HPV in female April 02, 2024 9:16am Obesity affecting March 9:16am April 02, 2024 9:16am Seasonal allergies April 02, 2024 9:16am Supervision of high-risk Febru mell 2024 9:16am 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 Admit Date New OB, [...] 2024 2 :07pm Supervision of normal first nujewell 2024 2:07pm HPV in female April 02, 2024 9:16am Obesity affecting March 9:16am April 02, 2024 9:16am Seasonal allergies April 02, 2024 9:16am Supervision of high-risk 2024 9:16am HPV in female May 02, [...] April 02, 2024 9:16am Supervision of high-risk 2024 9:16am HPV in female May 02, [...] April 02, 2024 9:16am Supervision of high-risk 2024 9:16am HPV in female May 02, [...] gestational age) fetus Ju ne 2024 8:19am Obesity affecting July 30, 2 [...] for gestational age) fetus Ju ne 2024 3:24pm Abnormal glucose tolerance test during p regnancy, antepartum July 30, 2024 8:19am Obesity affecting July 30, 025 8:19am July 30, 2024 8:19 am [...] August 19, 2024 8:32am Obesity affecting August 19, 025 8:32am Vicky 14th, 2025 8:32 am contractions August 19, 2024 8:3 2am Seasonal allergies August 19, 2024 8:32 am Supervision of high-risk August 19, 2024 8:32am 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 Admit Date 19wk ob May [...] wk ob/nst August 19, 2024 8:32 am GROWTH August 21, 2024 7:51 am 36 wk ob/nst August 26, 2024 8:38 am Reason for Visit Admit Date HPV [...] 16, 2024 3:24pm Obesity affecting July 16, 2 025 3:24pm July 16, 2024 3:24 pm Seasonal allergies July 16, 2024 3:24 pm Supervision of high-risk July 16, 2024 3:24pm LGA (large for gestational age) fetus Ju 2024 3:24pm Abnormal glucose tolerance test during p regnancy, antepartum July 30, 2024 8:19am Obesity affecting July 30, 025 8:19am July 30, 2024 8:19 am [...] August 19, 2024 8:32am Obesity affecting August 19, 025 8:32am August 19, 2024 8:32 am contractions August 19, 2024 8:3 2am Seasonal allergies August 19, 2024 8:32 am Supervision of high-risk August 19, 2024 8:32am Abnormal glucose tolerance test during p regnancy, antepartum August 26, 2024 8:38am HPV in female August 26, 2024 8:38 am LGA (large for gestational a ge) fetus affecting management of mother August 26, 2024 8:38am Obesity affecting August 26 025 8:38am August 26, 2024 8:38 am contractions August 26, 2024 8:3 8am Seasonal allergies August 26, 2024 8:38 am Supervision of high-risk August 26, 2024 8:38am 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 Admit Date 19wk ob May 02, 2024 8:1 1am wk ob May 29, 2024 7:2 0am 27wk ob/glucose June 24, 2024 3:30p m /E ORDER July 03, 2024 6:42a m 30wk ob July 16, 2024 3:24 pm GROWTH July 22, 2024 4:02 pm 32wk ob July 30, 2024 8:19 am 34 wk ob/NST August 12, 2024 8:07a m 35 wk ob/nst August 19, 2024 8:32 am GROWTH August 21, 2024 7:51 am 36 wk ob/nst August 26, 2024 8:38 am EXTENDED MONITORING/BPP August 26, 2024 9:37am EXTENDED MONITORING/BPP August 26, 2024 11:49am Reason for Visit Admit Date HPV in [...] 16, 2024 3:24pm Obesity affecting July 16, 2 [...] for gestational age) fetus Ju 2024 8:19am Abnormal glucose tolerance test during [...] 19, 2024 8:32am Obesity affecting August 19 025 8:32am August 19, 2024 8:32 am contractions August 19, 2024 8:3 2am Seasonal allergies August 19, 2024 8:32 am Supervision of high-risk August 19, 2024 8:32am Abnormal glucose tolerance test during p regnancy, antepartum August 26, 2024 8:38am HPV in female August 26, 2024 8:38 am LGA (large for gestational a ge) fetus affecting management of mother August 26, 2024 8:38am Obesity affecting August 26 025 8:38am August 26, 2024 8:38 am contractions August 26, 2024 8:3 8am Seasonal allergies August 26, 2024 8:38 am Supervision of high-risk August 26, 2024 8:38am Abnormal glucose tolerance test during p regnancy, antepartum August 26, 2024 9:37am HPV in female August 26, 2024 9:37 am LGA (large for gestational a ge) fetus affecting management of mother August 26, 2024 9:37am Non-stress test nonreactive August 26, 025 9:37am Obesity affecting August 26 025 9:37am August 26, 2024 9:37 am contractions August 26, 2024 9:3 7am Seasonal allergies August 26, 2024 9:37 am Supervision of high-risk August 26, 2024 9:37am Family History Relationship Condition Age at Onset Recorded Date/T [...] End: May 02, 2024 Shea Rodriguez NP, PYROTECHNIC MIXER-C Attending Provider Active Start: May 02, 2024 [...] End: June 24, 2024 Dr. Rhina Sweeney , Attending Provider Activ e Start: June 24, [...] July 03, 2024 Dr. Rhina Sweeney , Attending Provider Activ e Start: July 03, [...] 2024 End: July 16, 2024 Shea Rodriguez PYROTECHNIC MIXER, PYROTECHNIC MIXER-C Attending Provider Active Start: July 16, 2024 End: July 16, 2024 Team Status: Inactive Member Role Status Dates No Primary Care Physician Primary Care Provider Active Start: July 22, 2024 End: July 22, 2024 Shea Rodriguez PYROTECHNIC MIXER, PYROTECHNIC MIXER-C Attending Provider Active Start: July 22, 2024 End: July 22, 2024 Shea Rodriguez PYROTECHNIC MIXER, PYROTECHNIC MIXER-C Referring Provider Active Start: July 22, 2024 End: July 22, 2024 Team Status: Inactive Member Role Status Dates No Primary Care Physician Primary Care Provider Active Start: July 30, 2024 End: July 30, 2024 No Primary Care Physician Referring Provider Active Start: July 30, 2024 End: July 30, 2024 Shea Rodriguez PYROTECHNIC MIXER, PYROTECHNIC MIXER-C Attending Provider Active Start: July 30, 2024 [...] 2024 End: May 02, 2024 Shea Rodriguez PYROTECHNIC MIXER, PYROTECHNIC MIXER-C Attending Provider Active Start: May 02, 2024 [...] End: June 24, 2024 Dr. Rhina Sweeney , Attending Provider Activ e Start: June 24, [...] July 03, 2024 Dr. Rhina Sweeney , Attending Provider Activ e Start: July 03, [...] 2024 End: July 16, 2024 Shea Rodriguez PYROTECHNIC MIXER, PYROTECHNIC MIXER-C Attending Provider Active Start: July 16, 2024 End: July 16, 2024 Team Status: Inactive Member Role/Relationship Status Dates No Primary Care Physician Primary Care Provider Active Start: July 22, 2024 End: July 22, 2024 Shea Rodriguez PYROTECHNIC MIXER, PYROTECHNIC MIXER-C Attending Provider Active Start: July 22, 2024 End: July 22, 2024 Shea Rodriguez PYROTECHNIC MIXER, PYROTECHNIC MIXER-C Referring Provider Active Start: July 22, 2024 End: July 22, 2024 Team Status: Inactive Member Role/Relationship Status Dates No Primary Care Physician Primary Care Provider Active Start: July 30, 2024 End: July 30, 2024 No Primary Care Physician Referring Provider Active Start: July 30, 2024 End: July 30, 2024 Shea Rodriguez PYROTECHNIC MIXER, PYROTECHNIC MIXER-C Attending Provider Active Start: July 30, 2024 End: July 30, 2024 Team Status: Inactive Member Role/Relationship Status Dates No Primary Care Physician Primary Care Provider Active Start: August 12, 2024 End: August 12, 2024 No Primary Care Physician Referring Provider Active Start: August 12, 2024 End: August 12, 2024 Dr. Rhina Sweeney , Attending Provider Activ e Start: August 12, 2024 End: August 12, 2024 Team Status: Inactive Member Role/Relationship Status Dates No Primary Care Physician Primary Care Provider Active Start: August 19, 2024 End: August 19, 2024 No Primary Care Physician Referring Provider Active Start: August 19, 2024 End: August 19, 2024 Dr. Rhina Sweeney , DO Attending Provider Activ e Start: August 19, 2024 End: August 19, 2024 Team Status: Active Member Role/Relationship Status Dates No Primary Care Physician Primary Care Provider Active Start: August 21, 2024 Shea Rodriguez PYROTECHNIC MIXER, PYROTECHNIC MIXER-C Attending Provider Active Start: August 21, 2024 Shea Rodriguez PYROTECHNIC MIXER, PYROTECHNIC MIXER-C Referring Provider Active Start: August 21, 2024 Team Status: Inactive Member Role/Relationship Status Dates No Primary Care Physician Primary Care Provider Active Start: August 26, 2024 End: August 26, 2024 No Primary Care Physician Referring Provider Active Start: August 26, 2024 End: August 26, 2024 Dr. Maris Aragon MD Attending Provider Active Start: August 26, 2024 End: August 26, 2024 Team Status: Inactive Member Role/Relationship Status Dates No Primary Care Physician Primary Care Provider Active Start: August 26, 2024 End: August 26, 2024 Earline Andrade CNM Attending Provider Active S tart: August 26, 2024 End: August 26, 2024 Earline Andrade CNM Referring Provider Active S tart: August 26, 2024 End: August 26, 2024 Team Status: Active Member Role/Relationship Status Dates No Primary Care Physician Primary Care Provider Active Start: August 26, 2024 Earline Andrade CNM Attending Provider Active S tart: August 26, 2024 Earline Andrade CNM Referring Provider Active S tart: August 26, 2024 Earline Andrade CNM Other Provider Active Start : August 26, 2024 Team Status: Inactive Member Role/Relationship Status Dates No Primary Care Physician Primary Care Provider Active Start: August 21, 2024 End: August 21, 2024 Shea Rodriguez NP, NP-C Attending Provider Active Start: August 21, 2024 End: August 21, 2024 Shea Rodriguez NP, NP-Ronnie Referring Provider Active Start: August 21, 2024 End: August 21, 2024 Goals (unrecognized section and content) Goals [...] section and content) DATE CREATED AUTHOR 05/25/2024 [facility] DATE CREATED AUTHOR AUTHOR'S THEA PALMER 08/24/2024 [facility] FOR RECORDS PERTAINING TO PATIENTS WHO ARE [...] BE BASED ON THE PRIMARY CLINICAL RECORDS. [facility]. provides no warranty or guarantee of the accuracy or completeness of information in this document.
== END 2024-08-26 11:25 | disposition home or self-care (01) ==
LOC: WPOUT 09:39 → WP 09:39
PROVIDERS: Referring Provider Advanced Practice Midwife; Visit Provider Advanced Practice Midwife
DX: O36.8330 Maternal care for abnormalities of the fetal heart rate or rhythm, third trimester, not applicable or unspecified (principal); O60.03 Preterm labor without delivery, third trimester; O36.63X0 Maternal care for excessive fetal growth, third trimester, not applicable or unspecified; O99.810 Abnormal glucose complicating pregnancy; O99.213 Obesity complicating pregnancy, third trimester; Z3A.35 35 weeks gestation of pregnancy
CPT/HCPCS: 59025; 59050; 76819; 81002; 87081; 87086; 87088; 87653; 99221; G0378

== ENCOUNTER 2024-09-13 12:00 | Outpatient (CLI) | payer OTHER, SELFPAY ==
[2024-09-13 13:17] LABS: Hematocrit 31.8 % (37-47); Hemoglobin 10.3 g/dL (12.0-15.0); Mean Corp Hgb Conc 32.4 g/dL (32-36); Mean Corpuscular Volume 80.3 fL (81-99); Mean Platelet Vol. 10.9 fl (6.2-12.0); Platelet Count 263 K/mm3 (150-450); RBC Distribution Width CV 15.1 % (11.6-14.6); RBC Distribution Width SD 43.8 fl (35.1-43.9); Red Blood Count 3.96 M/mm3 (4.2-5.4); White Blood Count 9.3 K/mm3 (4.4-11.0)
[2024-09-13 13:36] LABS: AST(SGOT) 18 U/L (<=31); Alanine Aminotransfer ALT/SGPT 8 U/L (<=34); Uric Acid 3.5 mg/dL (2.6-6.0)
[2024-09-13 13:37] LABS: Creatinine, Urine (random) 80.80 mg/dL (28.00-217.00); Protein, Urine (Random) 16.2 mg/dL (0.0-12.0); Protein:Creat Ratio 200 mg/g CRE (0-200)
[2024-09-13 14:03] VITALS: BP 148/87; PULSE 106
[2024-09-13 14:09] VITALS: PULSE 104; O2SAT 99
[2024-09-13 14:10] VITALS: RESP 16; TEMP 36.6
[2024-09-13 14:18] VITALS: BP 143/78; PULSE 92
--- NOTE | 2024-09-13 14:44 | US_ITS ---
PROCEDURE: OB BIOPHYSICAL PROF W/O NST 09/13/2024 REASON FOR EXAM: Preeclampsia TECHNIQUE: OB BIOPHYSICAL PROF W/O NST COMPARISON: August 26, 2024 FINDINGS Number: 1 Position: Vertex Placental Position: Posterior and fundal Placental Abnormalities: No evidence of previa. Placental grade 2. BIOPHYSICAL ASSESSMENT: Amniotic Fluid Volume: Subjectively normal. Amniotic Fluid Index: 21 (8-24 cm normal range) Cardiac Motion: 157 (average) Trunk and Limb Motion: Present. LMP: December 21, 2023. Previously established LORY September 26, 2024. Estimated age previously established 38 weeks, 1 day. US/OB Biophysical Prof W/O NST IMPRESSION: 1. No acute findings. Biophysical profile 09/13. Reading Location: [id number]
[2024-09-13 15:51] VITALS: BP 131/85; PULSE 95
[2024-09-13 16:11] VITALS: BP 136/82; PULSE 96
[2024-09-13 16:17] VITALS: BMI 52.2
--- NOTE | 2024-09-13 16:31 | OB.TRI.PN_ITS ---
Progress Notes Date of Service: 09/13/24 Progress Note: Patient presents for triage evaluation secondary to elevated BP at home at 38.1 weeks. FHT: 140 Moderate variability reactive no decelerations category I tracing [place]: irregular Contractions Assessment and plan: normal pre e labs, BPP 8/8, Reactive NST, reassuring maternal and status patient discharged to home to follow-up in office at next scheduled appt. See problem list details for additional plan information. Laboratory Studies: Laboratory Tests 09/13/24 Range/Units 13:00 WBC 9.3 (4.4-11.0) K/mm3 RBC 3.96 L (4.2-5.4) M/mm3 Hgb 10.3 L (12.0-15.0) g/dL Hct 31.8 L (37-47) % MCV 80.3 L (81-99) fL MCH 26.0 L (27.0-32.0) pg MCHC 32.4 (32-36) g/dL RDW Std Deviation 43.8 (35.1-43.9) fl RDW Coeff of [place] 15.1 H (11.6-14.6) % Plt Count 263 (150-450) K/mm3 MPV 10.9 (6.2-12.0) fl Creatinine 0.51 L (0.70-1.20) mg/dL Est GFR (MDRD) Non-Af 127 (>60) Uric Acid 3.5 (2.6-6.0) mg/dL AST 18 (<=31) U/L ALT 8 (<=34) U/L U Random Total Protein 16.2 H (0.0-12.0) mg/dL Urine Creatinine 80.80 (28.00-217.00) mg/dL Protein/Creatinin Ratio 200 (0-200) mg/g CRE Charges/Coding Multi Select Codes Visit Charges Office Visit/Consults: 85737 OV L3 Est 20min Urinary/Genital Urinary/Genital CPT Codes: 68795-02 non-stress test Interp Assessment & Plan (1) Elevated BP without diagnosis of hypertension: (2) Non-stress test nonreactive: COMMENT: in office BPP 8/8. reactive on WP. d/c home (3) contractions: (4) LGA (large for gestational age) fetus affecting management of mother: COMMENT: Growth US: 97%ile NST wkly at 34 wk. BS daily WNL. discussed R/B/A of IOL at 39 weeks 97th% overall and 100th% for head, start monitoring glucose levels fasting and 2 hour postprandial. Continue weekly NSTs. estimating to be 10 pounds so it was communicated that we may recommend a section if goes all the way to term. early induction is not always recommended as induction could result in the baby getting stuck. If natural labor happens before 40 weeks we can see how it goes. (5) Abnormal glucose tolerance test during , antepartum: COMMENT: normal 3 hr, however the fasting was elevated. - monitor at home fasting levels: 2 wk of readings WNL except 2 and states high carb snack night prior. Will continue to monitor (6) Supervision of high-risk : QUALIFIERS: Trimester: third trimester Qualified Code(s): O09.93 - Supervision of high risk , unspecified, third trimester COMMENT: PRR, , LORY 09/26/24, Mc (7) Obesity affecting : QUALIFIERS: Trimester: third trimester Obesity type affecting : unspecified obesity Qualified Code(s): O99.213 - Obesity complicating , third trimester COMMENT: HgbA1c 5.2 , BMI 44. 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 Repeat pap 2024 @ pp visit (10) Seasonal allergies:
== END 2024-09-13 16:22 | disposition home or self-care (01) ==
LOC: WPOUT 12:06 → WP 12:07
PROVIDERS: Referring Provider Advanced Practice Midwife; Visit Provider Advanced Practice Midwife
DX: O47.1 False labor at or after 37 completed weeks of gestation (principal); O26.893 Other specified pregnancy related conditions, third trimester; R03.0 Elevated blood-pressure reading, without diagnosis of hypertension; O36.63X0 Maternal care for excessive fetal growth, third trimester, not applicable or unspecified; O99.810 Abnormal glucose complicating pregnancy; O99.213 Obesity complicating pregnancy, third trimester; O09.93 Supervision of high risk pregnancy, unspecified, third trimester; Z3A.38 38 weeks gestation of pregnancy
CPT/HCPCS: 36415; 59025; 59050; 76819; 82565; 82570; 84156; 84450; 84460; 84550; 85027; 99221; G0378

== ENCOUNTER 2024-09-20 04:59 | Inpatient (IN) | payer OTHER, SELFPAY ==
[2024-09-20] VITALS (19 sets, daily range): BP systolic 107–158; BP diastolic 69–109; PULSE 68–99; RESP 12–26; TEMP 36.2–36.4; O2SAT 94–100; BMI 52.4
--- OUTSIDE RECORDS SUMMARY | 2024-09-20 04:58 | XMS RPT_ITS | CCD ---
Author Organization [facility] CliniSyut Care Team Providers Care Manager Area Name Role Phone Ankush CHOPRA-CLaura Attending Provider [phone] Ankush CHOPRA-CLaura Referring Provider Care Physician, No Primary Primary Care Provider Unavailable Care Physician, No Primary Referring Provider Un available Earline Andrade CNM Attending Provider [phone] Earline Andrade CNM Referring Provider [phone] Shmuel JURADO, Dr. Pollock Attending Provider Care Physician, No Primary Primary Care Provider Unavailable Shea Farley Attending Provider [phone] Dr. Rhina Sweeney DO Attending Provider Care Physician, No Primary Primary Care Provider Unavailable Care Physician, No Primary Referring Provider Un available Earline Andrade CNM Attending Provider [phone] Earline Andrade CNM Referring Provider [phone] Dr. Rhina Sweeney DO Referring Provider Shea Farley Referring Provider [phone] Care Physician, No Primary Primary Care Provider Unavailable Care Physician, No Primary Referring Provider Un available Earline Andrade CNM Attending Provider [phone] Earline Andrade CNM Referring Provider [phone] Dr. Maris Aragon MD Attending Provider Earline Andrade CNM Other Provider Care Physician, No Primary Primary Care Provider Unavailable Care Physician, No Primary Referring Provider Un available Shea Farley Attending Provider MARIS ARAGON Referring UnavailKEVIN Tyler Attending Unavailable NO PRIMARY CARE, Primary Care Unavailable TIMOTEO GUERRERO Attending Unavailable NO PRIMARY CARE, Primary Care Unavailable MARIS ARAGON Referring UnavailPETE Mills Attending Unavailable RHINA AGGARWAL Referring Unavailab crow NO PRIMARY CARE, Primary Care Unavailable Care Physician, No Primary Referring Unava ilable Care Physician, No Primary Primary Care Unava ilable Rhina Sweeney Attending Unavailabl e Care Physician, No Primary Referring Unava ilable Care Physician, No Primary Primary Care Unava ilable Rhina Sweeney Attending Unavailabl e Care Physician, No Primary Primary Care Unava ilable Earline Andrade Referring Unavailable Earline Andrade Attending Unavailable Earline Andrade Referring Unavailable Earline Andrade Attending Unavailable Care Physician, No Primary Primary Care Unava ilable Rhina Sweeney Attending Unavailabl e Care Physician, No Primary Referring Unava ilable Care Physician, No Primary Primary Care Unava ilable Care Physician, No Primary Referring Unava ilable Care Physician, No Primary Primary Care Unava ilable Rhina Sweeney Attending UnavailMaris Mcduffie Attending Unavailable Care Physician, No Primary Referring Unava ilable Care Physician, No Primary Primary Care Unava ilable Care Physician, No Primary Referring Unava ilable Care Physician, No Primary Primary Care Unava ilable Rhina Sweeney Attending Unavailsonu e Earline Andrade Referring Unavailable Earline Andrade Attending Unavailable Care Physician, No Primary Primary Care Unava ilable Jennifer MATHEMATICS LECTURER, Shea Attending Unavailable Jennifer MATHEMATICS LECTURER, Shea Referring Unavailable Care Physician, No Primary Primary Care Unava ilable Jennifer MATHEMATICS LECTURER, Shea Attending Unavailable [place] MATHEMATICS LECTURER, Shea Referring Unavailable Care Physician, No Primary Primary Care Unava ilable Care Physician, No Primary Primary Care Unava ilable Earline Andrade Attending Unavailable Earline Andrade Referring Unavailable Care Physician, No Primary Primary Care Unava ilable Rhina Sweeney Admitting UnavailRhina Montanez Attending Unavailabl e Care Physician, No Primary Referring Unava ilable Care Physician, No Primary Primary Care Unava ilable Earline nAdrade Attending Unavailable Laura Lechuga Attending Unavailable Care Physician, No Primary Referring Unava ilable Earline Andrade Attending Unavailable Care Physician, No Primary Primary Care Unava ilable Care Physician, No Primary Primary Care Unava ilable Earline Andrade Attending Unavailable Earline Andrade Referring Unavailable Care Physician, No Primary Primary Care Unava ilable Laura Lechuga Attending Unavailable Laura Lechuga Referring Unavailable Care Physician, No Primary Primary Care Unava ilable Rhina Sweeney Attending Unavailabl e Vande Velde, Rhina Referring Unavailabl e Care Physician, No Primary Primary Care Unava ilable Grace Murcia, Rhina Referring Unavailabl e Robee Velchapo, Rhina Attending Unavailabl e Jennifer MATHEMATICS LECTURER, Shea Attending Unavailable Care Physician, No Primary Referring Unava ilable Care Physician, No Primary Primary Care Unava ilable Care Physician, No Primary Referring Unava ilable Care Physician, No Primary Primary Care Unava ilable Rhina Sweeney Attending Unavailsonu e Jennifer MATHEMATICS LECTURER, Shea Attending Unavailable Care Physician, No Primary Referring Unava ilable Care Physician, No Primary Primary Care Unava ilable Jennifer MATHEMATICS LECTURER, Shea Attending Unavailable Care Physician, No Primary Referring Unava ilable Care Physician, No Primary Primary Care Unava ilable Care Physician, No Primary Primary Care Unava ilable Earline Andrade Attending Unavailable Earline Andrade Referring Unavailable Earline Andrade Consulting Unavailable Care Physician, No Primary Primary Care Unava ilable Earline Andrade Attending Unavailable Earline Andrade Referring Unavailable Earline Andrade Consulting Unavailable Maris Aragon Attending Unavailable Care Physician, No Primary Referring Unava ilable Care Physician, No Primary Primary Care Unava ilable Care Physician, No Primary Referring Unava ilable Care Physician, No Primary Primary Care Unava ilable Earline Andrade Attending Unavailable Medications Current Medications Medication Drug Class(es) Dates Sig (Normalized) Sig (Original) Blood-Glucose Meter misc (12 sources) Start: 07-03-2024 Blood-Glucose Meter misc Active 0 .MEDSUPPLY 1 0 July 03, 2024 12:00am As directed- Test fasting 3-4 times per week Start: 07-03-2024 Blood-Glucose Meter misc Active 0 .MEDSUPPLY 1 July 03, 2024 12:00am As directed- Test fasting 3-4 times per week Mv-Mins 23-Iqta-Lbmho No.1-D hearn (Pnv-[place]) 28-1-300 mg capsule (14 sources) Start: 02-23-2024 Mv-Mins 71-Iro n-Folic No.1-Dha (Pnv-[place]) 28-1-300 mg capsule Active NMA PO February 23, 2024 1:00am Problems Active Problems Problem Classification Problem Date Documented Date Episodic/Chronic Diabetes or abnormal glucose tolerance complicating ; childbirth; or the puerperium (20 sources) with abnormal glucose tolerance test; Translations: [Abnormal glucose complicating ] Onset: 09-16-2024 07-03-2024 Episodic Comment on above: normal 3 hr, however the fasting was elevated. - monitor at home fasting levels normal 3 hr, however the fasting was elevated. - monitor at home fasting levels: 2 wk of readings WNL except 2 and states high carb snack night prior. Will continue to monitor Early or threatened labor (20 sources) Premature uterine contraction; Translations: [False labor before 37 completed weeks of gestation, unspecified trimester] Onset: 09-16-2024 08-12-2024 Episodic Immunizations and screening for infectious disease (1 source) Encounter for immunization; Translations: [Encounter for immunization] Onset: 07-16-2024 Episodic Other circulatory disease (3 sources) Elevated blood-pressure reading without diagnosis of hypertension; Translations: [Elevated blood-pressure reading, without diagnosis of hypertension] 09-13-2024 Episodic Other circulatory disease (2 sources) Elevated blood-pressure reading, without diagnosis of hypertension; Translations: [Elevated blood-pressure reading, without diagnosis of hypertension] Onset: 09-16-2024 Episodic Other complications of ; puerperium affecting management of mother (20 sources) Large for gestation age fetus 07-16-2024 [...] starting at 34 weeks Other complications of (2 sources) Obesity complicating , third trimester; Translations: [Obesity complicating , third trimester] Onset: 09-16-2024 Chronic Other complications of (1 source) Obesity [...] , LORY , Mc Other complications of (20 sources) Excessive growth affecting management of mother; [...] see how it goes. Other complications of (20 sources) Abnormal findings on screening of mother; Translations: [Other abnormal findings on screening of mother] 08-26-2024 Episodic Comment on above: in office [facility] 09/13. r eactive on WP. d/c home Other complications of (2 sources) Maternal care for excessive growth, unspecified trimester, not applicable or unspecified; Translations: [Maternal care for excessive growth, unspecified trimester, not applicable or unspecified] Onset: 09-17-2024 Episodic Other complications of (2 sources) Other abnormal findings on screening of mother; Translations: [Other abnormal findings on screening of mother] Onset: 09-16-2024 Episodic Other complications of (2 sources) Supervision of high risk , unspecified, third trimester; Translations: [Supervision of high risk , unspecified, third trimester] Onset: 09-16-2024 Episodic Other complications of (1 source) Maternal care for abnormalities of the heart rate or rhythm, third trimester, not applicable or unspecified; Translations: [Maternal care for abnormalities of the heart rate or rhythm, third trimester, not applicable or unspecified] Onset: 09-05-2024 Episodic Other complications of (1 source) Uterine size-date discrepancy, unspecified trimester; Translations: [Uterine size-date discrepancy, unspecified trimester] Onset: 08-26-2024 Episodic Other complications of (1 source) Supervision [...] rhinitis] 12-25-2023 Chronic Other upper respiratory disease (2 sources) Other seasonal allergic rhinitis; Translations: [Other seasonal allergic rhinitis] Onset: 09-16-2024 Chronic Residual codes; unclassified (1 source) 38 weeks gestation of ; Translations: [38 weeks gestation of ] Onset: 09-17-2024 Episodic Residual codes; unclassified (2 sources) 37 weeks gestation of ; Translations: [37 weeks gestation of ] Onset: 09-16-2024 Episodic Residual codes; unclassified (1 source) 35 weeks gestation of ; Translations: [35 weeks gestation of ] Onset: 09-05-2024 Episodic Residual codes; unclassified (1 source) 33 weeks gestation of ; Translations: [33 weeks gestation of ] Onset: 08-12-2024 Episodic Residual codes; unclassified (1 source) 26 weeks gestation of ; Translations: [26 weeks gestation of ] Onset: 06-24-2024 Episodic Viral infection (20 sources) Human papilloma virus infection; Translations: [Papillomavirus as the cause of diseases classified elsewhere] Onset: 09-16-2024 01-08-2024 Episodic Comment on above: pap neg [...] risk NIPT low risk, nl an atomy GBS neg, NIPT low ri sk, nl anatomy Residual codes; unclassified (1 source) 14 weeks gestation of ; Translations: [14 weeks gestation of ] Onset: 04-02-2024 Episodic Residual codes; unclassified (1 source) 10 weeks gestation of ; Translations: [10 weeks gestation of ] Onset: 03-01-2024 Episodic Results Test Name Value Interpretation Reference Range Facility Concert Singer Office Visit Reporton 09-17-2024 Concert Singer Office Visit Report [facility] [address], [address] [place] [address] OFFICE VISIT Date of Service: 09/17/24 MR#: [id number] Acct: [id number] Name: SAMEER CABALLERO Rep #: [id number] : 1990 Provider: MARIO Fournier ams Age/Sex: 34/F Location: [facility] [place] Status: Signed Intake Vital Signs 07/16/24 15:29 09/10/24 08:26 09/13/24 16:17 09/17/24 13:22 Height 5 ft 5 in 5 ft 5 in 5 ft 5 in 5 ft 5 in Weight: 314 lb 6 oz BMI 52.3 BP 138/98 H Intake Visit Reasons: 39 wk ob/nst 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 Is patient in pain?: No Allergies No Known Allergies Allergy (Verified 09/17/24 13:20) Medications ???Medication ???Instructions ???Recorded ???Confirmed ???Type multivit-min no.71-iron fum 28 cap PO 02/23/24 09/17/24 History mg-folate no.1 1 mg-dha 300 mg capsule (PNV-[place]) blood sugar diagnostic (Blood #120 ea 07/03/24 09/17/24 Rx Glucose Test strips) blood-glucose meter #1 ea 07/03/24 09/17/24 Rx lancets #100 ea 07/03/24 09/17/24 Rx Last Menstrual Period: 12/21/23 : No PFSH PFSH Medical History Seasonal allergies History of frequent headaches Surgical History [place] teeth extracted Family History Grandmother CVA (cerebral vascular accident) Maternal Diabetes Maternal Grandfather Myocardial infarction, Onset Age: 54 Maternal Social History adopted: No household members: spouse housing: house number of children: 0 current occupational status: employed current occupation: [employer] current occupational exposures/hazards: No pets and animals: Yes pets and animals: dog(s) history of recent travel: Yes ([facility] in January) out of state: Yes out [...] physical activity do you participate in: none ganesh/jain: Buddhist seatbelt use: always do you feel safe at home: Yes additional social history: - Mc - hankins History 1 Elective abortions Hx Para 0 Spontaneous abortions Hx # Term Pregnancies Ectopic pregnancies Hx # Pregnancies Multiple births # of living children HPI 39 wk ob/nst Details: SAMEER CABALLERO is a 34 year old who presents for routine OB visit. OB Visit LORY Calculator Estimated Delivery Date Method Current WG Current Estimate 09/26/24 LMP (Certain) 38w 5d Other Estimates 09/25/24 Ultrasound #1 38w 6d Expected Delivery Route/Plan Labor Preferences- CB/BF [...] Negative 146 -???-???-???-???-???- ???-???-???-???-???-? ??-???- -No VB. Na usea resolved. Anatomy US next wee (more content not included)... Normal [facility] AST(SGOT)Ordered By: Earline colorado on 09-13-2024 AST [Catalytic activity/Vol] 18 U/L Normal <=31 [facility] Comment on above: Performed By: #### L 501.1105, L501.1400, L501.0900, L100.0500, L501.4405, L501.4100 ####[facility] [id number] [place], [place], [id number] Automated blood erythrocyte countOrdered By: Earline Andrade on 09-13-2024 RBC (Bld) [#/Vol] 3.96 10*6/uL Low 4.2-5.4 [facility] Comment on above: Performed By: #### L 501.1105, L501.1400, L501.0900, L100.0500, L501.4405, L501.4100 #### [facility] Laboratory [address] [place], [place], [id number] Automated blood hematocrit ( percentage)Ordered By: Earline Andrade on 09-13-2024 Hematocrit (Bld) [Volume fraction] 31.8 % Low 37-47 [facility] Comment on above: Performed By: #### L 501.1105, L501.1400, L501.0900, L100.0500, L501.4405, L501.4100 #### [facility] [address] [place], [place], [id number] CBC-Complete Blood Cnt No Di ffon 09-13-2024 RDW SD 43.8 fl Normal 35.1-43.9 [facility] Comment on above: Performed By: #### L 501.1105, L501.1400, L501.0900, L100.0500, L501.4405, L501.4100 #### [facility] [address] [place], [place], [id number] Erythrocyte distribution wid th ratioOrdered By: Earline Andrade on 09-13-2024 Erythrocyte distribution width (RBC) [Ratio] 15.1 % High 11.6-14.6 [facility] Comment on above: Performed By: #### L 501.1105, L501.1400, L501.0900, L100.0500, L501.4405, L501.4100 #### [facility] [address] [facility] [place], [place], [id number] Erythrocyte distribution wid th standard deviationOrdered By: Earline Andrade on 09-13-2024 Erythrocyte distribution width (RBC) [Ratio] 43.8 fl 35.1-43.9 [facility] Glomerular filtration rate ( GFR) estimation/1.73 sq m using serum, plasma, or whole bOrdered By: Earline Andrade on 09-13-2024 GFR/1.73 sq M.predicted among non-blacks MDRD (S/P/Bld) [Vol rate/Area] 127 mL/min/{1.73_m2} Normal >60 [facility] Comment on above: mL/min/1.73m2 CKD-EP I Creatinine Equation (2020) Result Comment: mL/m in/1.73m2 CKD-EPI Creatinine Equation (2020) Performed By: #### L 501.1105, L501.1400, L501.0900, L100.0500, L501.4405, L501.4100 #### [facility] [address] [place], [address] Hemoglobin measurementOrdere d By: Earline Andrade on 09-13-2024 Hemoglobin (Bld) [Mass/Vol] 10.3 g/dL Low 12.0-15.0 [facility] Comment on above: Performed By: #### L 501.1105, L501.1400, L501.0900, L100.0500, L501.4405, L501.4100 #### [facility] [address] [place], [place], [phone] MCV (mean corpuscular volume ) determinationOrdered By: Earline Andrade on 09-13-2024 MCV (RBC) [Entitic vol] 80.3 fL Low 81-99 [facility] Comment on above: Performed By: #### L 501.1105, L501.1400, L501.0900, L100.0500, L501.4405, L501.4100 #### [facility] [address] [place], [address] Mean corpuscular hemoglobin (MCH) determinationOrdered By: Earline Andrade on 09-13-2024 MCH (RBC) [Entitic mass] 26.0 pg Low 27.0-32.0 [facility] Comment on above: Performed By: #### L 501.1105, L501.1400, L501.0900, L100.0500, L501.4405, L501.4100 #### [facility] [address] [place], [address] Mean corpuscular hemoglobin concentration (MCHC) determinationOrdered By: Earline Andrade on 09-13-2024 MCHC (RBC) [Mass/Vol] 32.4 g/dL Normal 32-36 [facility] Comment on above: Performed By: #### L 501.1105, L501.1400, L501.0900, L100.0500, L501.4405, L501.4100 #### [facility] [address] [place], [address] Mean platelet volume determi nationOrdered By: Earline Andrade on 09-13-2024 Platelet mean volume (Bld) [Entitic vol] 10.9 fL Normal 6.2-12.0 [facility] Comment on above: Performed By: #### L 501.1105, L501.1400, L501.0900, L100.0500, L501.4405, L501.4100 #### [facility] [address] [place], [address] OB Biophysical Prof W/O NSTo n 09-13-2024 OB Biophysical Prof W/O NST [facility] [address] [place] [address] OB Biophysical Prof W/O NST MR#: [id number] Acct: [id number] Name: SAMEER CABALLERO Rep #: [id number] : 1990 F 34 From: Thomas Britton MD PCP: Care Physician,No Primary Status: DEP CLI Study: OB Biophysical Prof W/O NST Date of Exam: 09/30 Exam# [id number] Ordering Dr: Earline Andrade [facility] ADDENDUM by Dr. Thomas Britton MD on 09/14/24 at 0635 Voice recognition error. This was omitted. Amniotic Fluid Volume: 2/2 Movements: 2/2 Tone: 2/2 Breathin/2 Total: 8 Position: Cephalic Reading Location: [id number] 09/14/24 0636 Date cc: MARIO Andrade; No Primary Care Physician * Signed PROCEDURE: OB BIOPHYSICAL PROF W/O NST 09/13/2024 REASON FOR EXAM: Preeclampsia TECHNIQUE: OB BIOPHYSICAL PROF W/O NST COMPARISON: August 26, 2024 FINDINGS Number: 1 Position: Vertex Placental Position: Posterior and fundal Placental Abnormalities: No evidence of previa. Placental grade 2. BIOPHYSICAL ASSESSMENT: Amniotic Fluid Volume: Subjectively normal. Amniotic Fluid Index: 21 (8-24 cm normal range) Cardiac Motion: 157 (average) Trunk and Limb Motion: Present. LMP: December 21, 2023. Previously established LORY September 26, 2024. Estimated age previously established 38 weeks, 1 day. US/OB Biophysical Prof W/O NST IMPRESSION: 1. No acute findings. Biophysical profile 09/13. Reading Location: [id number] CC: MARIO Andrade; No Primary Care Physician Director Geophysical Laboratory: Signed Normal [facility] OB Triage Progress Noteon OB Triage Progress Note [facility] Medical Records Department [address] [place] [address] OB Triage Progress Note 09/13/24 1631 MR#: [id number] Acct: [id number] Name: SAMEER CABALLERO Rep #: [id number] : 1990 34 From: Earline Andrade CNM PCP: Care Physician,No Primary Status:DEP CLI Y DOS: Location: WPOUT Progress Notes Date of Service: 09/13/24 Progress Note: Patient presents for triage evaluation secondary to elevated BP at home at 38.1 weeks. FHT: 140 Moderate variability reactive no decelerations category I tracing [place]: irregular Contractions Assessment and plan: normal pre e labs, BPP 09/13, Reactive NST, reassuring maternal and status patient discharged to home to follow-up in office at next scheduled appt. See problem list details for additional plan information. Laboratory Studies: Laboratory Tests 09/13/24 Range/Units 13:00 WBC 9.3 (4.4-11.0) K/mm3 RBC 3.96 L (4.2-5.4) M/mm3 Hgb 10.3 L (12.0-15.0) g/dL Hct 31.8 L (37-47) % MCV 80.3 L (81-99) fL MCH 26.0 L (27.0-32.0) pg MCHC 32.4 (32-36) g/dL RDW Std Deviation 43.8 (35.1-43.9) fl RDW Coeff of Rosetta 15.1 H (11.6-14.6) % Plt Count 263 (150-450) K/mm3 MPV 10.9 (6.2-12.0) fl Creatinine 0.51 L (0.70-1.20) mg/dL Est GFR (MDRD) Non-Af 127 (>60) Uric Acid 3.5 (2.6-6.0) mg/dL AST 18 (<=31) U/L ALT 8 (<=34) U/L U Random Total Protein 16.2 H (0.0-12.0) mg/dL Urine Creatinine 80.80 (28.00-217.00) mg/dL Protein/Creatinin Ratio 200 (0-200) mg/g CRE Charges/Coding Multi Select Codes Visit Charges Office Visit/Consults: 93205 OV L3 Est 20min Urinary/Genital Urinary/Genital CPT Codes: 58867-83 non-stress test Interp Assessment Plan (1) Elevated BP without diagnosis of hypertension: (2) Non-stress test nonreactive: COMMENT: in office BPP 09/13. reactive on WP. d/c home (3) contractions: (4) LGA (large for gestational age) fetus affecting [...] weeks we can see how it goes. (5) Abnormal glucose tolerance test during , antepartum: COMMENT: normal 3 hr, however the fasting was elevated. - monitor at home fasting levels: 2 wk of readings WNL except 2 and states high carb snack night prior. Will continue to monitor (6) Supervision of high-risk : QUALIFIERS: Trimester: third trimester Qualified Code(s): O09.93 - Supervision of high risk , unspecified, third trimester COMMENT: PRR, , LORY 09/26/24, Mc (7) Obesity affecting : QUALIFIERS: Trimester: third trimester Obesity type affecting : unspecified obesity Qualified Code(s): O99.213 - Obesity complicating , third trimester COMMENT: HgbA1c 5.2 , BMI 44. - weekly nsts starting at 34 weeks (8) : QUALIFIERS: Weeks of gestation: 37 weeks Qualified Code(s): Z3A.37 - 37 weeks gestation of COMMENT: GBS neg, NIPT low risk, nl anatomy (9) HPV in female: COMMENT: pap neg 2017 2023. Repeat pap 2024 @ pp visit (10) Seasonal allergies: 09/13/24 1635 Date Earline Andrade CNM Cosigner Signature (if applicable): Date CC: MARIO Andrade; No Primary Care Physician Signed Normal [facility] Platelet countOrdered By: Ishan Andrade on 09-13-2024 Platelets (Bld) [#/Vol] 263 10*3/uL Normal 150-450 [facility] Comment on above: Performed By: #### L 501.1105, L501.1400, L501.0900, L100.0500, L501.4405, L501.4100 #### [facility] Laboratory [facility] [place] [address], [address] Protein+Creatinine Ratio,Uri neon 09-13-2024 PROT:CRE RATIO 200 mg/g CRE Normal 0-200 [facility] Comment on above: Performed By: #### L 501.1105, L501.1400, L501.0900, L100.0500, L501.4405, L501.4100 #### [facility] [address] [place], [address] UR CREAT 80.80 mg/dL Normal 28.00-217.00 [facility] Comment on above: Performed By: #### L 501.1105, L501.1400, L501.0900, L100.0500, L501.4405, L501.4100 #### [facility] [address] [place], [address] Random urine creatinine dequan urement (mass/volume)Ordered By: Earline Andrade on 09-13-2024 Creatinine Unsp time (U) [Mass/Vol] 80.80 mg/dL 28.00-217.00 [facility] Serum creatinine measurement (mass/volume)Ordered By: Earline Andrade on 09-13-2024 Creatinine [Mass/Vol] 0.51 mg/dL Low 0.70-1.20 [facility] Comment on above: Performed By: #### L 501.1105, L501.1400, L501.0900, L100.0500, L501.4405, L501.4100 #### [facility] [address] [place], [address] Serum or plasma alanine ferris otransferase (ALT) measurementOrdered By: Earline Andrade on 09-13-2024 ALT [Catalytic activity/Vol] 8 U/L Normal <=34 [facility] Comment on above: Performed By: #### L 501.1105, L501.1400, L501.0900, L100.0500, L501.4405, L501.4100 ####[facility] [address] [place], [address] Serum or plasma uric acid me asurement (mass/volume)Ordered By: Earline Andrade on 09-13-2024 Urate [Mass/Vol] 3.5 mg/dL 2.6-6.0 [facility] Comment on above: The drugs N-Acetylcy steine and Metamizole may falsely depress this assay. Uric Acidon 09-13-2024 URIC 3.5 mg/dL Normal 2.6-6.0 [facility] Comment on above: Result Comment: The drugs N-Acetylcysteine and Metamizole may falsely depress this assay. Performed By: #### L 501.1105, L501.1400, L501.0900, L100.0500, L501.4405, L501.4100 #### [facility] [address] [place], [place], [id number] Urine protein measurement (m ass/volume)Ordered By: Earline Andrade on 09-13-2024 Protein (U) [Mass/Vol] 16.2 mg/dL High 0.0-12.0 [facility] Comment on above: Performed By: #### L 501.1105, L501.1400, L501.0900, L100.0500, L501.4405, L501.4100 #### [facility] [address] [place], [place], [id number] Urine protein/creatinine mas s ratioOrdered By: Earline Andrade on 09-13-2024 Protein/Creatinine (U) [Mass ratio] 200 mg/g CRE 0-200 [facility] White blood cell (WBC) count Ordered By: Earline Andrade on 09-13-2024 WBC (Bld) [#/Vol] 9.3 10*3/uL Normal 4.4-11.0 [facility] Comment on above: Performed By: #### L 501.1105, L501.1400, L501.0900, L100.0500, L501.4405, L501.4100 #### [facility] [address] [place], [place], [id number] Laboratory - Chemistry and C hemistry - challengeOrdered By: Rhina Murcia on 09-10-2024 Glucose Ql (U) Negative [facility] Laboratory - UrinalysisOrder ed By: Rhina Murcia on 09-10-2024 Protein Ql (U) Negative [facility] Concert Singer Office Visit Reporton 09-10-2024 Concert Singer Office Visit Report [facility] [address], [address] [place] [address] OFFICE VISIT Date of Service: 09/10/24 MR#: [id number] Acct: [id number] Name: SAMEER CABALLERO Rep #: [id number] : 1990 Provider: Dr. 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 Is patient in pain?: No Allergies No Known Allergies Allergy (Verified 09/10/24 08:25) Medications ???Medication ???Instructions ???Recorded ???Confirmed ???Type multivit-min no.71-iron fum 28 cap PO 02/23/24 09/10/24 History mg-folate no.1 1 mg-dha 300 mg capsule (PNV-[place]) blood sugar diagnostic (Blood #120 ea 07/03/24 09/10/24 Rx Glucose Test strips) blood-glucose meter #1 ea 07/03/24 09/10/24 Rx lancets #100 ea 07/03/24 09/10/24 Rx Last Menstrual Period: 12/21/23 Zika: Zika virus screening: Negative : No PFSH PFSH Medical History Seasonal allergies History of frequent headaches Surgical History Bapchule teeth extracted Family History Grandmother CVA (cerebral vascular accident) Maternal Diabetes Maternal Grandfather Myocardial infarction, Onset Age: 54 Maternal Social History adopted: No household members: spouse housing: house number of children: 0 current occupational status: employed current occupation: [employer] current occupational exposures/hazards: No pets and animals: [...] physical activity do you participate in: none ganesh/jain: Buddhist seatbelt use: always do you feel safe at home: Yes additional social history: - Mc - hankins History 1 Elective abortions Hx Para 0 Spontaneous abortions Hx # Term Pregnancies Ectopic pregnancies Hx # Pregnancies Multiple births # of living children HPI 38 wk ob/nst Details: SAMEER CABALLERO is a 34 year old who presents for routine OB visit. OB Visit LORY Calculator Estimated Delivery Date Method Current WG Current Estimate 09/26/24 LMP (Certain) 37w 5d Other Estimates 09/25/24 Ultrasound #1 37w 6d Expected Delivery Route/Plan Labor Preferences- CB/BF [...] VB. N (more content not included)... Normal [facility] Laboratory - Chemistry and C hemistry - challengeOrdered By: Rhina Murcia on 09-02-2024 Glucose Ql (U) Negative [facility] Laboratory - UrinalysisOrder ed By: Rhina Murcia on 09-02-2024 Protein Ql (U) Negative [facility] Concert Singer Office Visit Reporton 09-02-2024 Concert Singer Office Visit Report [facility] [address], [address] [place] [address] OFFICE VISIT Date of Service: 09/02/24 MR#: [id number] Acct: [id number] Name: SAMEER CABALLERO Rep #: [id number] : 1990 Provider: Dr. 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 Is patient in pain?: No Allergies No Known Allergies Allergy (Verified 09/02/24 08:49) Medications ???Medication ???Instructions ???Recorded ???Confirmed ???Type multivit-min no.71-iron fum 28 cap PO 02/23/24 09/02/24 History mg-folate no.1 1 mg-dha 300 mg capsule (PNV-[place]) blood sugar diagnostic (Blood #120 ea 07/03/24 09/02/24 Rx Glucose Test strips) blood-glucose meter #1 ea 07/03/24 09/02/24 Rx lancets #100 ea 07/03/24 09/02/24 Rx Last Menstrual Period: 12/21/23 Zika: Zika virus screening: Negative : No PFSH PFSH Medical History Seasonal allergies History of frequent headaches Surgical History Bapchule teeth extracted Family History Grandmother CVA (cerebral vascular accident) Maternal Diabetes Maternal Grandfather Myocardial infarction, Onset Age: 54 Maternal Social History adopted: No household members: spouse housing: house number of children: 0 current occupational status: employed current occupation: [employer] current occupational exposures/hazards: No pets and animals: Yes pets and animals: dog(s) history of recent travel: Yes ([place] in January) out of state: Yes [...] physical activity do you participate in: none ganesh/jain: Buddhist seatbelt use: always do you feel safe at home: Yes additional social history: - Mc - hankins History 1 Elective abortions Hx Para 0 Spontaneous abortions Hx # Term Pregnancies Ectopic pregnancies Hx # Pregnancies Multiple births # of living children HPI 37 wk ob/nst Details: SAMEER CABALLERO is a 34 year old who presents for routine OB visit. OB Visit LORY Calculator Estimated Delivery Date Method Current WG Current Estimate 09/26/24 LMP (Certain) 36w 4d Other Estimates 09/25/24 Ultrasound #1 36w 5d Expected Delivery Route/Plan Labor Preferences- CB/BF [...] ???-???-???-???-???-? ??-???- Negative 155 -???-???-???-???-???- ???-???-???-???-???-? ??-???- - no vb cr amping labs today 05/02/24 -???-???-???-???-???- ???-???-???-???-???-? ??-???- 19w 0d 278 lb 2 oz (+11 lb 2 oz) 126/84 Negative -???-???-???-???-???- ???-???-???-???-???-? ??-???- Negative 146 -???-???-???-???-???- ???-???-???-???-???-? ??-???- -No VB. N (more content not included)... Normal [facility] Rule out Beta Strep (Grp. B) on 08-29-2024 RAMANDEEP Group B Beta Streptococcus is not isolated. Normal [facility] Comment on above: Performed By: #### M 8200.0100 #### [facility] [place], [address] Urine Cultureon 08-27-2024 URC Mixed Gram Positive Organisms Valier Count 11,000-25,000 MIXC Mixed contaminants. Submit a new specimen if indicated. Normal [facility] Comment on above: Performed By: #### M 100.2200 #### [facility] [address] [place], [address] Bilirubin Test strip Ql (U)O rdered By: Earline Andrade on 08-26-2024 Bilirubin Ql (U) Negative Negative [facility] Ketones Test strip Ql (U)Ord ered By: Earline Andrade on 08-26-2024 Ketones Ql (U) Negative Negative [facility] Laboratory - Chemistry and C hemistry - challengeOrdered By: Maris Aragon on 08-26-2024 Glucose Ql (U) Negative [facility] Laboratory - UrinalysisOrder ed By: Maris Aragon on 08-26-2024 Protein Ql (U) Negative [facility] M8200.0100on 08-26-2024 M8200.0100 Negative Normal [facility] Comment on above: Performed By: #### M 8200.0100 #### [facility] [address] [place], [address] OB Biophysical Prof W/O NSTo n 08-26-2024 OB Biophysical Prof W/O NST [facility] Imaging Services [address] [place], [place] [address] OB Biophysical Prof W/O NST MR#: [id number] Acct: [id number] Name: SAMEER CABALLERO Rep #: [id number] : 1990 F 34 From: Shai Samayoa MD PCP: Care Physician,No Primary Status: DEP CLI Study: OB Biophysical Prof W/O NST Date of Exam: 08/07 03/02 Exam# [id number] Ordering Dr: Earline Andrade CNM EXAM: US Biophysical Profile Without Non-Stress Testing CLINICAL INDICATION: NON-REACTIVE NST TECHNIQUE: Real-time ultrasound of the maternal pelvis for biophysical profile evaluation with image documentation. COMPARISON: No relevant prior studies available. FINDINGS: BREATHING MOVEMENTS: Present. Score 2/2. GROSS BODY MOVEMENTS: Present. Score 2/2. TONE: Present. Score 2/2. QUALITATIVE AMNIOTIC FLUID VOLUME: EVI 15.7 cm. Largest fluid is 4.96 cm. FETUS: age 37 weeks and 4 days. HEART RATE: heart rate 150 beats per minute. PRESENTATION: Cephalic presentation. PLACENTA: Posterior placenta. OTHER FINDINGS: LORY 09/26/2024. US/OB Biophysical Prof W/O NST IMPRESSION: No acute findings. Normal biophysical profile with score of 8/8. Reading [facility] CC: MARIO Andrade; No Primary Care Physician Director Geophysical Laboratory: Signed Normal [facility] OB Triage Progress Noteon OB Triage Progress Note [facility] Medical Records Department [address] [place] [address] OB Triage Progress Note 08/26/24 1149 MR#: [id number] Acct: [id number] Name: SAMEER CABALLERO Rep #: [id number] : 1990 34 From: Earline Andrade CNM PCP: Care Physician,No Primary Status:REG CLI Y DOS: Location: [id number] Progress Notes Date of Service: 08/26/24 Progress Note: Patient presents for triage evaluation secondary to non reactive NST in the office at 35 weeks FHT: 140 Moderate variability reactive no decelerations category I tracing [place]: irregular Contractions Assessment and plan: BPP 8/8, Reactive NST, reassuring maternal and status patient discharged to home to follow-up in office at next appt. See problem list details for additional plan information. Laboratory Studies: Laboratory Tests 08/26/24 Range/Units 10:00 Urine Color Yellow (Yellow) Urine Clarity Cloudy (Clear) Urine pH 7.0 (5.0 - 8.0) Ur Specific [place] 1.015 (1.002-1.030) Urine Protein 15 H (Negative) mg/dl Urine Glucose (UA) Normal (Normal) mg/dl Urine Ketones Negative (Negative) mg/dl Urine Occult Blood Negative (Negative) /ul Urine Nitrite Negative (Negative) Urine Bilirubin Negative (Negative) mg/dL Urine Urobilinogen Normal (Normal) mg/dl Ur Leukocyte Esterase 25 H (Negative) /ul Charges/Coding Multi Select Codes Urinary/Genital Urinary/Genital CPT Codes: 85280-14 non-stress test Interp Assessment Plan (1) Non-stress test nonreactive: COMMENT: in [...] HPV in female: COMMENT: pap neg 2017 2023. Repeat pap 2024 @ pp visit (9) Seasonal allergies: 08/26/24 1151 Date Tamia Andrade CNM Cosigner Signature (if applicable): Date CC: MARIO Andrade; No Primary Care Physician Signed Normal [facility] Concert Singer Office Visit Reporton 08-26-2024 Concert Singer Office Visit Report [facility] [address], [address] [place] [address] OFFICE VISIT Date of Service: 08/26/24 MR#: [id number] Acct: [id number] Name: SAMEER CABALLERO Rep #: [id number] : 1990 Provider: Dr. 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 Is patient in pain?: No Allergies No Known Allergies Allergy (Verified 08/26/24 08:41) Medications ???Medication ???Instructions ???Recorded ???Confirmed ???Type multivit-min no.71-iron fum 28 cap PO 02/23/24 08/26/24 History mg-folate no.1 1 mg-dha 300 mg capsule (PNV-[place]) blood sugar diagnostic (Blood #120 ea 07/03/24 08/26/24 Rx Glucose Test strips) blood-glucose meter #1 ea 07/03/24 08/26/24 Rx lancets #100 ea 07/03/24 08/26/24 Rx Last Menstrual Period: 12/21/23 Zika: Zika virus screening: Negative : No PFSH PFSH Medical History Seasonal allergies History of frequent headaches Surgical History Bapchule teeth extracted Family History Grandmother CVA (cerebral vascular accident) Maternal Diabetes Maternal Grandfather Myocardial infarction, Onset Age: 54 Maternal Social History adopted: No household members: spouse housing: house number of children: 0 current occupational status: employed current occupation: [employer] current occupational exposures/hazards: No pets and animals: [...] physical activity do you participate in: none ganesh/jain: Buddhist seatbelt use: always do you feel safe at home: Yes additional social history: - Mc - hankins History 1 Elective abortions Hx Para 0 Spontaneous abortions Hx # Term Pregnancies Ectopic pregnancies Hx # Pregnancies Multiple births # of living children HPI 36 wk ob/nst Details: SAMEER CABALLERO is a 34 year old who presents for routine OB visit. OB Visit LORY Calculator Estimated Delivery Date Method Current WG Current Estimate 09/26/24 LMP (Certain) 35w 4d Other Estimates 09/25/24 Ultrasound #1 35w 5d Expected Delivery Route/Plan Labor Preferences- CB/BF [...] VB. Na usea resolved. Anatomy US next we (more content not included)... Normal [facility] Protein Test strip Ql (U)Ord ered By: Earline Andrade on 08-26-2024 Protein Ql (U) 15 mg/dl High Negative [facility] Screening beta-hemolytic Str eptococcus cultureOrdered By: Earline Andrade on 08-26-2024 Beta-hemolytic Streptococcus culture Group B Beta Streptococcus is not isolated. [facility] Urinalysis, Routine (Dipstic k)on 08-26-2024 BILIRUBIN URINE Negative Normal Negative [facility] Comment on above: Order Comment: LEWIS CTOR TO SPECIFY Performed By: #### M 100.2200, L7000.1800 #### [facility] [address] [place], [address] GLUCOSE, UR Normal Normal Normal [facility] Comment on above: Order Comment: LEWIS CTOR TO SPECIFY Performed By: #### M 100.2200, L7000.1800 #### [facility] [address] [place], [address] KETONE UR Negative Normal Negative [facility] Comment on above: Order Comment: LEWIS CTOR TO SPECIFY Performed By: #### M 100.2200, L7000.1800 #### [facility] [address] [place], [address] LEUK ESTERASE 25 /ul Abnormal Negative [facility] Comment on above: Order Comment: LEWIS CTOR TO SPECIFY Performed By: #### M 100.2200, L7000.1800 #### [facility] [address] [place], [address] OCCULT BLOOD-UR Negative Normal Negative [facility] Comment on above: Order Comment: LEWIS CTOR TO SPECIFY Performed By: #### M 100.2200, L7000.1800 #### [facility] [address] [place], [address] pH UR 7.0 Normal 5.0 - 8.0 [facility] Comment on above: Order Comment: LEWIS CTOR TO SPECIFY Performed By: #### M 100.2200, L7000.1800 #### [facility] [address] [place], [address] PROT DIPSTX 15 mg/dl Abnormal Negative [facility] Comment on above: Order Comment: LEWIS CTOR TO SPECIFY Performed By: #### M 100.2200, L7000.1800 #### [facility] [address] [place], [address] SP.GR. DIPSTX 1.015 Normal 1.002-1.030 [facility] Comment on above: Order Comment: LEWIS CTOR TO SPECIFY Performed By: #### M 100.2200, L7000.1800 #### [facility] [address] [place], [address] UROBILI Normal Normal Normal [facility] Comment on above: Order Comment: LEWIS CTOR TO SPECIFY Performed By: #### M 100.2200, L7000.1800 #### [facility] [address] [place], [address] Urine clarityOrdered By: Riccardo Andrade on 08-26-2024 Clarity (U) Cloudy Normal Clear [facility] Comment on above: Order Comment: LEWIS CTOR TO SPECIFY Performed By: #### M 100.2200, L7000.1800 #### [facility] [address] [place], [place], [address] Urine color determinationOrd ered By: Earline Andrade on 08-26-2024 Color (U) Yellow Normal Yellow [facility] Comment on above: Order Comment: LEWIS CTOR TO SPECIFY Performed By: #### M 100.2200, L7000.1800 #### [facility] [address] [place], [place], [id number] Urine cultureOrdered By: Riccardo Andrade on 08-26-2024 Bacteria identified Cx Nom (U) Positive Abnormal [facility] Urine glucose detectionOrder ed By: Earline Andrade on 08-26-2024 Glucose Ql (U) Normal mg/dl Normal [facility] Urine leukocyte esterase det ection by dipstickOrdered By: Earline Andrade on 08-26-2024 Leukocyte esterase Test strip Ql (U) 25 /ul High Negative [facility] Urine nitrite test by dipsti ckOrdered By: Earline Andrade on 08-26-2024 Nitrite Ql (U) Negative Normal Negative [facility] Comment on above: Order Comment: LEWIS CTOR TO SPECIFY Performed By: #### M 100.2200, L7000.1800 #### [facility] [address] [place], [place], [id number] Urine pHOrdered By: Earline mirza on 08-26-2024 pH (U) 7.0 [pH] 5.0 - 8.0 [facility] Urine specific gravity measu rementOrdered By: Earline Andrade on 08-26-2024 Specific gravity (U) [Rel density] 1.015 1.002-1.030 [facility] Urine urobilinogen measureme ntOrdered By: Earline Andrade on 08-26-2024 Urobilinogen Ql (U) Normal mg/dl Normal [facility] OB Limited With Biometricson 08-21-2024 OB Limited With Biometrics [facility] Imaging Services [address] [place], [place] [address] OB Limited With Biometrics MR#: [id number] Acct: [id number] Name: SAMEER CABALLERO Rep #: [id number] : 1990 F 34 From: Kale moyer MD PCP: Care Physician,No Primary Status: REG CL Study: OB Limited With Biometrics Date of Exam: 08/21 Exam# [id number] Ordering Dr: Shea Rodriguez NP, NP -Ronnie PROCEDURE: OB LIMITED WITH BIOMETRICS 08/21/2024 REASON [...] with the normal expected range. Reading Location: [place] [address] CC: MATHEMATICS LECTURER-Ronnie Rodriguez; No Primary Care Physician Director Geophysical Laboratory: Signed Normal [facility] Laboratory - Chemistry and C hemistry - challengeOrdered By: Rhina Murcia on 08-19-2024 Glucose Ql (U) Negative [facility] Laboratory - UrinalysisOrder ed By: Rhina Murcia on 08-19-2024 Protein Ql (U) Negative [facility] Concert Singer Office Visit Reporton 08-19-2024 Concert Singer Office Visit Report [facility] [address], [address] [place] [address] OFFICE VISIT Date of Service: 08/19/24 MR#: [id number] Acct: [id number] Name: SAMEER CABALLERO Rep #: [id number] : 1990 Provider: Dr. 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 Is patient in pain?: No Allergies No Known Allergies Allergy (Verified 08/19/24 08:35) Medications ???Medication ???Instructions ???Recorded ???Confirmed ???Type multivit-min no.71-iron fum 28 cap PO 02/23/24 08/19/24 History mg-folate no.1 1 mg-dha 300 mg capsule (PNV-[place]) blood sugar diagnostic (Blood #120 ea 07/03/24 08/19/24 Rx Glucose Test strips) blood-glucose meter #1 ea 07/03/24 08/19/24 Rx lancets #100 ea 07/03/24 08/19/24 Rx Last Menstrual Period: 12/21/23 : No Have you fallen in the past year?: No PFSH PFSH Medical History Seasonal allergies History of frequent headaches Surgical History Bapchule teeth extracted Family History Grandmother CVA (cerebral vascular accident) Maternal Diabetes Maternal Grandfather Myocardial infarction, Onset Age: 54 Maternal Social History adopted: No household members: spouse housing: house number of children: 0 current occupational status: employed current occupation: [employer] current occupational exposures/hazards: No pets and animals: Yes pets and animals: dog(s) history of recent travel: Yes ([place] in January) out of state: Yes [...] physical activity do you participate in: none ganesh/jain: Buddhist seatbelt use: always do you feel safe [...] ???-???-???-???-???-? ??-???- (more content not included)... Normal [facility] Laboratory - Chemistry and C hemistry - challengeOrdered By: Rhina Murcia on 08-12-2024 Glucose Ql (U) Negative [facility] Laboratory - UrinalysisOrder ed By: Rhina Murcia on 08-12-2024 Protein Ql (U) Negative [facility] Concert Singer Office Visit Reporton 08-12-2024 Concert Singer Office Visit Report [facility] [address], [address] [place] [address] OFFICE VISIT Date of Service: 08/12/24 MR#: [id number] Acct: [id number] Name: SAMEER CABALLERO Rep #: [id number] : 1990 Provider: Dr. 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 Is patient in pain?: No Allergies No Known Allergies Allergy (Verified 08/12/24 08:11) Medications ???Medication ???Instructions ???Recorded ???Confirmed ???Type multivit-min no.71-iron fum 28 cap PO 02/23/24 08/12/24 History mg-folate no.1 1 mg-dha 300 mg capsule (PNV-[place]) blood sugar diagnostic (Blood #120 ea 07/03/24 08/12/24 Rx Glucose Test strips) blood-glucose meter #1 07/03/24 08/12/24 Rx lancets #100 07/03/24 08/12/24 Rx Last Menstrual Period: 12/21/23 Zika: Zika virus screening: Negative : No PFSH PFSH Medical History Seasonal allergies History of frequent headaches Surgical History Bapchule teeth extracted Family History Grandmother CVA (cerebral vascular accident) Maternal Diabetes Maternal Grandfather Myocardial infarction, Onset Age: 54 Maternal Social History adopted: No household members: spouse housing: house number of children: 0 current occupational status: employed current occupation: [employer] current occupational exposures/hazards: No pets and animals: Yes pets and animals: dog(s) history of recent travel: Yes ([facility] in January) out of state: Yes out [...] physical activity do you participate in: none ganesh/jain: Buddhist seatbelt use: always do you feel safe [...] VB. N (more content not included)... Normal [facility] Laboratory - Chemistry and C hemistry - challengeOrdered By: Shea Rodriguez on 07-30-2024 Glucose Ql (U) Negative [facility] - UrinalysisOrder ed By: Shea Rodriguez on 07-30-2024 Protein Ql (U) Negative [facility] Concert Singer Office Visit Reporton 07-30-2024 Concert Singer Office Visit Report [facility] [address], [address] [place] [address] OFFICE VISIT Date of Service: 07/30/24 MR#: [id number] Acct: [id number] Name: SAMEER CABALLERO Rep #: [id number] : 1990 Provider: NERY hsieh Age/Sex: 34/F Location: [facility] [place] Status: Signed Intake Vital Signs 06/24/24 15:33 07/16/24 15:29 07/30/24 08:22 07/30/24 08:28 Height 5 ft 5 in 5 ft 5 in 5 ft 5 in 5 ft 5 in Weight: 292 lb BMI 48.6 BP 118/78 Intake Visit Reasons: 32wk ob 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 Is patient in pain?: No Allergies No Known Allergies Allergy (Verified 07/30/24 08:22) Medications ???Medication ???Instructions ???Recorded ???Confirmed ???Type multivit-min no.71-iron fum 28 cap PO 02/23/24 07/30/24 History mg-folate no.1 1 mg-dha 300 mg capsule (PNV-[place]) blood sugar diagnostic (Blood #120 ea 07/03/24 07/30/24 Rx Glucose Test strips) blood-glucose meter #1 ea 07/03/24 07/30/24 Rx lancets #100 ea 07/03/24 07/30/24 Rx Last Menstrual Period: 12/21/23 Zika: Zika virus screening: Negative : No PFSH PFSH Medical History Seasonal allergies History of frequent headaches Surgical History Bapchule teeth extracted Family History Grandmother CVA (cerebral vascular accident) Maternal Diabetes Maternal Grandfather Myocardial infarction, Onset Age: 54 Maternal Social History adopted: No household members: spouse housing: house number of children: 0 current occupational status: employed current occupation: [employer] current occupational exposures/hazards: No pets and animals: Yes pets and animals: dog(s) history of recent travel: Yes ([place] in January) out of state: Yes [...] physical activity do you participate in: none ganesh/jain: Buddhist seatbelt use: always do you feel safe [...] ??-???- MH- (more content not included)... Normal [facility] OB Limited With Biometricson 07-22-2024 OB Limited With Biometrics [facility] [address] [place] [address] OB Limited With Biometrics MR#: [id number] Acct: [id number] Name: SAMEER CABALLERO Rep #: [id number] : 1990 F 34 From: Kale moyer MD PCP: Care Physician,No Primary Status: REG CLI Study: OB Limited With Biometrics Date of Exam: 07/22 Exam# [id number] Ordering Dr: Shea Rodriguez NP MATHEMATICS LECTURER -C PROCEDURE: OB LIMITED WITH BIOMETRICS 07/22/2024 [...] 33 weeks and 0 days. Reading Location: [facility] CC: NERY Rodriguez; No Primary Care Physician Director Geophysical Laboratory: Signed Normal [facility] - Chemistry and C hemistry - challengeOrdered By: Shea Rodriguez on 07-16-2024 Glucose Ql (U) Negative [facility] - UrinalysisOrder ed By: Shea Rodriguez on 07-16-2024 Protein Ql (U) Negative [facility] Concert Singer Office Visit Reporton 07-16-2024 Concert Singer Office Visit Report [facility] [address], [address] [place] [address] OFFICE VISIT Date of Service: 07/16/24 MR#: [id number] Acct: [id number] Name: SAMEER CABALLERO Rep #: [id number] : 1990 Provider: NERY hsieh Age/Sex: 34/F Location: [facility] Status: Signed Intake Vital Signs 05/02/24 08:39 06/24/24 15:33 07/16/24 15:29 Height 5 ft 5 in 5 ft 5 in 5 ft 5 in Weight: 295 lb 4 oz BMI 49.1 BP 120/74 Intake Visit Reasons: 30wk ob 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 Is patient in pain?: No Allergies No Known Allergies Allergy (Verified 07/16/24 15:29) Medications ???Medication ???Instructions ???Recorded ???Confirmed ???Type multivit-min no.71-iron fum 28 cap PO 02/23/24 07/16/24 History mg-folate no.1 1 mg-dha 300 mg capsule (PNV-[place]) blood sugar diagnostic (Blood #120 ea 07/03/24 07/16/24 Rx Glucose Test strips) blood-glucose meter #1 ea 07/03/24 07/16/24 Rx lancets #100 ea 07/03/24 07/16/24 Rx Last Menstrual Period: 12/21/23 Zika: Zika virus screening: Negative : No PFSH PFSH Medical History Seasonal allergies History of frequent headaches Surgical History Bapchule teeth extracted Family History Grandmother CVA (cerebral vascular accident) Maternal Diabetes Maternal Grandfather Myocardial infarction, Onset Age: 54 Maternal Social History adopted: No household members: spouse housing: house number of children: 0 current occupational status: employed current occupation: [employer] current occupational exposures/hazards: No pets and animals: Yes pets and animals: dog(s) history of recent travel: Yes ([place] in January) out of state: Yes [...] physical activity do you participate in: none ganesh/jain: Buddhist seatbelt use: always do you feel safe [...] usea resol (more content not included)... Normal [facility] Gestational GTT 3HR 100gon 0 07-03-2024 GEST GTT 100gm Normal [facility] Comment on above: Order Comment: Y Result Comment: FAST ING 96 Col: 07/03/24 0648 GLUCOSE TOLERANCE TEST FOR Reference Interval GESTATIONAL DIABETES Fasting <105 mg/dL 1 hour <190 mg/dl 2 hour <165 mg/dl 3 hour <145 mg/dl 1 HR GLU 162 Col: 07/03/24 0818 2 HR GLU 103 Col: 07/03/24 0918 3 HR GLU 134 Col: 07/03/24 1014 Performed By: #### M 8200.0100 #### [facility] [place], [address] Quantitative serum or plasma 3 hour gestational glucose tolerance panelOrdered By: Rhina Murcia on 07-03-2024 Glucose tolerance 3 hours gestational panel See comment [facility] Comment on above: FASTING 96 Col: 06/07 09/30 0648GLUCOSE TOLERANCE TEST FOR Reference Interval GESTATIONAL DIABETES Fasting <105 mg/dL 1 hour <190 mg/dl 2 hour <165 mg/dl 3 hour <145 mg/dl 1 HR GLU 162 Col: 07/03/24 0818 2 HR GLU 103 Col: 07/03/24 0918 3 HR GLU 134 Col: 07/03/24 1014 Absolute lymphocyte countOrd ered By: Rhina Murcia on 06-24-2024 Lymphocytes Auto (Unsp spec) [#/Vol] 1.97 10*3/uL 0.83-4.51 [facility] Absolute neutrophil countOrd ered By: Rhina Murcia on 06-24-2024 Neutrophils (Bld) [#/Vol] 7.8 10*3/uL High 2.0-7.7 [facility] Automated lymphocyte count a s percentage of total leukocytesOrdered By: Rhina Murcia on 06-24-2024 Lymphocytes/100 WBC Auto (Unsp spec) 18.8 % Low 19-41 [facility] Basophil percentageOrdered B y: Rhina Murcia on 06-24-2024 Basophils/100 WBC (Bld) 0.2 % 0-1 [facility] CBC W/Diff, Automatedon 06-06 Absolute Lymph 1.97 X10 3/uL Normal 0.83-4.51 [facility] Comment on above: Performed By: #### L 3890.6006, L509.8002, L100.0100, L501.0250 ####[facility] [address] [place], [address] Absolute Neut 7.8 X10 3/uL High 2.0-7.7 [facility] Comment on above: Performed By: #### L 3890.6006, L509.8002, L100.0100, L501.0250 ####[facility] [address] [place], [address] Basophils/100 WBC (Bld) 0.2 % Normal 0-1 [facility] Comment on above: Performed By: #### L 3890.6006, L509.8002, L100.0100, L501.0250 ####[facility] [address] [place], [address] Eosinophils/100 WBC (Bld) 1.0 % Normal 0-5 [facility] Comment on above: Performed By: #### L 3890.6006, L509.8002, L100.0100, L501.0250 ####[facility] [address] [place], [address] Erythrocyte distribution width (RBC) [Ratio] 14.4 % Normal 11.6-14.6 [facility] Comment on above: Performed By: #### L 3890.6006, L509.8002, L100.0100, L501.0250 ####[facility] [address] [place], [address] Hematocrit (Bld) [Volume fraction] 33.4 % Low 37-47 [facility] Comment on above: Performed By: #### L 3890.6006, L509.8002, L100.0100, L501.0250 ####[facility] [address] [place], [address] Hemoglobin (Bld) [Mass/Vol] 11.0 g/dL Low 12.0-15.0 [facility] Comment on above: Performed By: #### L 3890.6006, L509.8002, L100.0100, L501.0250 ####[facility] [address] [place], [address] IG% 0.500 Normal 0.0-0.9 [facility] Comment on above: Result Comment: IG% - Immature Granulocytes (promyelocytes, myelocytes and metamyelocytes) > 1% indicates that a LEFT SHIFT is Present. Performed By: #### L 3890.6006, L509.8002, L100.0100, L501.0250 ####[facility] [address] [place], [address] Lymphocytes/100 WBC (Bld) 18.8 % Low 19-41 [facility] Comment on above: Performed By: #### L 3890.6006, L509.8002, L100.0100, L501.0250 ####[facility] [address] [place], [address] MCH (RBC) [Entitic mass] 27.9 pg Normal 27.0-32.0 [facility] Comment on above: Performed By: #### L 3890.6006, L509.8002, L100.0100, L501.0250 ####[facility] [address] [place], [address] MCHC (RBC) [Mass/Vol] 32.9 g/dL Normal 32-36 [facility] Comment on above: Performed By: #### L 3890.6006, L509.8002, L100.0100, L501.0250 ####[facility] [address] [place], [address] MCV (RBC) [Entitic vol] 84.8 fL Normal 81-99 [facility] Comment on above: Performed By: #### L 3890.6006, L509.8002, L100.0100, L501.0250 ####[facility] [address] [place], [address] Monocytes/100 WBC (Bld) 5.0 % Normal 0-10 [facility] Comment on above: Performed By: #### L 3890.6006, L509.8002, L100.0100, L501.0250 ####[facility] [address] [place], [address] Neutrophils/100 WBC (Bld) 74.5 % High 47-70 [facility] Comment on above: Performed By: #### L 3890.6006, L509.8002, L100.0100, L501.0250 ####[facility] [address] [place], [address] Nucleated RBC (Bld) [#/Vol] 0 10*3/uL Normal 0-5 [facility] Comment on above: Performed By: #### L 3890.6006, L509.8002, L100.0100, L501.0250 ####[facility] [address] [place], [address] Platelet mean volume (Bld) [Entitic vol] 10.4 fL Normal 6.2-12.0 [facility] Comment on above: Performed By: #### L 3890.6006, L509.8002, L100.0100, L501.0250 ####[facility] [address] [place], [address] Platelets (Bld) [#/Vol] 290 10*3/uL Normal 150-450 [facility] Comment on above: Performed By: #### L 3890.6006, L509.8002, L100.0100, L501.0250 ####[facility] [address] [place], [address] RBC (Bld) [#/Vol] 3.94 10*6/uL Low 4.2-5.4 [facility] Comment on above: Performed By: #### L 3890.6006, L509.8002, L100.0100, L501.0250 ####[facility] [address] [place], [address] RDW SD 44.6 fl High 35.1-43.9 [facility] Comment on above: Performed By: #### L 3890.6006, L509.8002, L100.0100, L501.0250 ####[facility] [address] [place], [address] WBC (Bld) [#/Vol] 10.5 10*3/uL Normal 4.4-11.0 [facility] Comment on above: Performed By: #### L 3890.6006, L509.8002, L100.0100, L501.0250 ####[facility] [address] [place], [place], [address] Eosinophil percentageOrdered By: Rhina Divina on 06-24-2024 Eosinophils/100 WBC (Bld) 1.0 % 0-5 [facility] Erythrocyte distribution wid th ratioOrdered By: Rhina Divina on 06-24-2024 Erythrocyte distribution width (RBC) [Ratio] 14.4 % 11.6-14.6 [facility] Erythrocyte distribution wid th standard deviationOrdered By: Rhina Divina on 06-24-2024 Erythrocyte distribution width (RBC) [Ratio] 44.6 fl High 35.1-43.9 [facility] Glucose Challenge Gest 1H 50 abdirahman 06-24-2024 GLU GEST 50g 1H 139 mg/dL Normal 70-140 [facility] Comment on above: Performed By: #### L 3890.6006, L509.8002, L100.0100, L501.0250 ####[facility] [address] [place], [place], [address] Glucose measurement at 2 virgen rs post-dose gestational glucose tolerance testOrdered By: Rhinabev Murcia on 06-24-2024 Glucose [Mass/Vol] 139 mg/dL 70-140 [facility] HIVon 06-24-2024 HIV Non-Reactive Normal Nonreactive [facility] Comment on above: Result Comment: Non- Reactive Reactive Repeatedly reactive samples must be confirmed according to CDC recommended confirmatory algorithms. The subresults for either HIVAG or AHIV can be used as an aid in the selection of the confirmation algorithm for reactive samples. Send out specimens with Reactive results to [facility] for confirmation. Order the HIV antibody detection and differentiation: lc#[id number] Performed By: #### L 3890.6006, L509.8002, L100.0100, L501.0250 ####[facility] [address] [place], [place], [address] Hematocrit Auto (Bld) [Volum e fraction]Ordered By: Rhina Murcia on 06-24-2024 Hematocrit (Bld) [Volume fraction] 33.4 % Low 37-47 [facility] Hemoglobin measurementOrdere d By: Rhina Murcia on 06-24-2024 Hemoglobin (Bld) [Mass/Vol] 11.0 g/dL Low 12.0-15.0 [facility] Immature granulocytes/100 WB C Auto (Bld)Ordered By: Rhina Murcia on 06-24-2024 Immature granulocytes/100 WBC (Bld) 0.500 % 0.0-0.9 [facility] Comment on above: IG% - Immature Granu locytes (promyelocytes, myelocytes and metamyelocytes) > 1% indicates that a LEFT SHIFT is Present. Laboratory - Chemistry and C hemistry - challengeOrdered By: Rhina Murcia on 06-24-2024 Glucose Ql (U) Negative [facility] - UrinalysisOrder ed By: Rhina Murcia on 06-24-2024 Protein Ql (U) Negative [facility] MCV (mean corpuscular volume ) determinationOrdered By: Rhina Murcia on 06-24-2024 MCV (RBC) [Entitic vol] 84.8 fL 81-99 [facility] Mean corpuscular hemoglobin (MCH) determinationOrdered By: Rhina Murcia on 06-24-2024 MCH (RBC) [Entitic mass] 27.9 pg 27.0-32.0 [facility] Mean corpuscular hemoglobin concentration (MCHC) determinationOrdered By: Rhina Murcia on 06-24-2024 MCHC (RBC) [Mass/Vol] 32.9 g/dL 32-36 [facility] Mean platelet volume determi nationOrdered By: Rhina Murcia on 06-24-2024 Platelet mean volume (Bld) [Entitic vol] 10.4 fL 6.2-12.0 [facility] Monocyte percentageOrdered B y: Rhina Murcia on 06-24-2024 Monocytes/100 WBC (Bld) 5.0 % 0-10 [facility] Neutrophil percentageOrdered By: Rhina Murcia on 06-24-2024 Neutrophils/100 WBC (Bld) 74.5 % High 47-70 [facility] No Panel InformationOrdered By: Rhina Murcia on 06-24-2024 HIV (1&2) Antibody Non-Reactive Nonreactive [facility] Comment on above: Non-ReactiveReactive Repeatedly reactive samples must be confirmed according to CDC recommended confirmatory algorithms. The subresults for either HIVAG or AHIV can be used as an aid in the selection of the confirmation algorithm for reactive samples.Send out specimens with Reactive results to [facility] for confirmation.Order the HIV antibody detection and differentiation: #[id number] Nucleated red blood cell per centageOrdered By: Rhina Murcia on 06-24-2024 Nucleated RBC/100 WBC (Bld) [Ratio] 0 % 0-5 [facility] Concert Singer Office Visit Reporton 06-24-2024 Concert Singer Office Visit Report [facility]'[address], [address] [place] [address] OFFICE VISIT Date of Service: 06/24/24 MR#: [id number] Acct: [id number] Name: SAMEER CABALLERO Rep #: [id number] : 1990 Provider: Dr. 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 Is patient in pain?: No Allergies No Known Allergies Allergy (Verified 06/24/24 15:31) Medications ???Medication ???Instructions ???Recorded ???Confirmed ???Type multivit-min no.71-iron fum 28 cap PO 02/23/24 06/24/24 History mg-folate no.1 1 mg-dha 300 mg capsule (PNV-[place]) Last Menstrual Period: 12/21/23 Zika: Zika virus screening: Negative : No PFSH PFSH Medical History Seasonal allergies History of frequent headaches Surgical History Bapchule teeth extracted Family History Grandmother CVA (cerebral vascular accident) Maternal Diabetes Maternal Grandfather Myocardial infarction, Onset Age: 54 Maternal Social History adopted: No household members: spouse housing: house number of children: 0 current occupational status: employed current occupation: [employer] current occupational exposures/hazards: No pets and animals: Yes pets and animals: dog(s) history of recent travel: Yes ([place] in January) out of state: Yes [...] physical activity do you participate in: none ganesh/jain: Buddhist seatbelt use: always do you feel safe [...] -???-???-???-???-???- ?? (more content not included)... Normal [facility] Platelet countOrdered By: Valdemar Murcia on 06-24-2024 Platelets (Bld) [#/Vol] 290 10*3/uL 150-450 [facility] RBC Auto (Bld) [#/Vol]Ordere d By: Rhina Murcia on 06-24-2024 RBC (Bld) [#/Vol] 3.94 10*6/uL Low 4.2-5.4 [facility] Syphilis Antibodieson 2024 Syphilis Abs Non-Reactive Normal Nonreactive [facility] Comment on above: Performed By: #### L 3890.6006, L509.8002, L100.0100, L501.0250 ####[facility] [address] [place], [address] White blood cell (WBC) count Ordered By: Rhina Murcia on 06-24-2024 WBC (Bld) [#/Vol] 10.5 10*3/uL 4.4-11.0 [facility] Laboratory - Chemistry and C hemistry - challengeOrdered By: Earline Andrade on 05-29-2024 Glucose Ql (U) Negative [facility] - UrinalysisOrder ed By: Earline Andrade on 05-29-2024 Protein Ql (U) Negative [facility] Concert Singer Office Visit Reporton 05-29-2024 Concert Singer Office Visit Report [facility] [address], [address] [place] [address] OFFICE VISIT Date of Service: 05/29/24 MR#: [id number] Acct: [id number] Name: SAMEER CABALLERO Rep #: [id number] : 1990 Provider: MARIO Fournier ams Age/Sex: 34/F Location: [facility] Status: Signed Intake Vital Signs 03/01/24 14:33 05/02/24 08:39 05/29/24 07:25 05/29/24 07:31 Height 5 ft 5 in 5 ft 5 in 5 ft 5 in 5 ft 5 in Weight: 285 lb 6 oz BMI 47.5 BP 120/80 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 Is patient in pain?: No Allergies No Known Allergies Allergy (Verified 05/29/24 07:23) Medications ???Medication ???Instructions ???Recorded ???Confirmed ???Type multivit-min no.71-iron fum 28 cap PO 02/23/24 05/29/24 History mg-folate no.1 1 mg-dha 300 mg capsule (PNV-[place]) Last Menstrual Period: 12/21/23 Do you think of yourself as: straight/heterosexual Current gender identity: female Zika: Zika virus screening: Negative : No PFSH PFSH Medical History Seasonal allergies History of frequent headaches Surgical History Bapchule teeth extracted Family History Grandmother CVA (cerebral vascular accident) Maternal Diabetes Maternal Grandfather Myocardial infarction, Onset Age: 54 Maternal Social History adopted: No household members: spouse housing: house number of children: 0 current occupational status: employed current occupation: [employer] current occupational exposures/hazards: No pets and animals: [...] physical activity do you participate in: none ganesh/jain: Buddhist seatbelt use: always do you feel safe [...] -???-???-???-???-???- ???-???- (more content not included)... Normal [facility] Laboratory - Chemistry and C hemistry - challengeOrdered By: Shea Rodriguez on 05-02-2024 Glucose Ql (U) Negative [facility] Laboratory - UrinalysisOrder ed By: Shea Rodriguez on 05-02-2024 Protein Ql (U) Negative [facility] Concert Singer Office Visit Reporton 05-02-2024 Concert Singer Office Visit Report [facility] [address], [address] [place] [address] OFFICE VISIT Date of Service: 05/02/24 MR#: [id number] Acct: [id number] Name: SAMEER CABALLERO Rep #: [id number] : 1990 Provider: NERY hsieh Age/Sex: 33/F Location: [facility] Status: Signed Intake Vital Signs 03/01/24 14:33 04/02/24 09:19 05/02/24 08:23 Height 5 ft 5 in 5 ft 5 in 5 ft 5 in Weight: 278 lb 2 oz BMI 46.3 BP 126/84 H Intake Visit Reasons: 18 wk ob 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 Is patient in pain?: No Allergies No Known Allergies Allergy (Verified 05/02/24 08:23) Medications ???Medication ???Instructions ???Recorded ???Confirmed ???Type multivit-min no.71-iron fum 28 cap PO 02/23/24 05/02/24 History mg-folate no.1 1 mg-dha 300 mg capsule (PNV-[place]) Last Menstrual Period: 12/21/23 Zika: Zika virus screening: Negative : No PFSH PFSH Medical History Seasonal allergies History of frequent headaches Surgical History Bapchule teeth extracted Family History Grandmother CVA (cerebral vascular accident) Maternal Diabetes Maternal Grandfather Myocardial infarction, Onset Age: 54 Maternal Social History adopted: No household members: spouse housing: house number of children: 0 current occupational status: employed current occupation: [employer] current occupational exposures/hazards: No pets and animals: Yes pets and animals: dog(s) history of recent travel: Yes ([facility] in January) out of state: Yes out [...] physical activity do you participate in: none ganesh/jain: Buddhist seatbelt use: always do you feel safe [...] to care (more content not included)... Normal [facility] Hemoglobin A1con 04-03-2024 HbA1c (Bld) [Mass fraction] 5.2 % Low <=5.6 [facility] Comment on above: Performed By: #### M 8200.0100 #### [facility] [address] [place], [address] L3890.6102on 04-03-2024 HEP B Surf Ag Non-Reactive Normal Nonreactive [facility] Comment on above: Result Comment: Reac tive: Presumptive evidence of HBV. Repeatedly reactive samples must be confirmed using a neutralization test ([employer] HBsAg Confirmatory Test) Non-Reactive: HBsAg not detected; does not exclude the possibility of exposure to HBV Performed By: #### M 8200.0100 #### [facility] [address] [place], [address] Absolute lymphocyte countOrd ered By: Earline Andrade on 04-02-2024 Lymphocytes Auto (Unsp spec) [#/Vol] 2.43 10*3/uL 0.83-4.51 [facility] Absolute neutrophil countOrd ered By: Earline Andrade on 04-02-2024 Neutrophils (Bld) [#/Vol] 6.7 10*3/uL 2.0-7.7 [facility] Automated lymphocyte count a s percentage of total leukocytesOrdered By: Earline Andrade on 04-02-2024 Lymphocytes/100 WBC Auto (Unsp spec) 24.8 % 19-41 [facility] Basophil percentageOrdered B y: Earline Andrade on 04-02-2024 Basophils/100 WBC (Bld) 0.3 % 0-1 [facility] CBC W/Diff, Automatedon 03-10 Absolute Lymph 2.43 X10 3/uL Normal 0.83-4.51 [facility] Comment on above: Performed By: #### L 3890.6006, L509.4006, L509.8002, BTS, L900.0098, L3890.6102, L100.0100, L501.9985, L3890.6301 ####[facility] [address] [place], [address] Absolute Neut 6.7 X10 3/uL Normal 2.0-7.7 [facility] Comment on above: Performed By: #### L 3890.6006, L509.4006, L509.8002, BTS, L900.0098, L3890.6102, L100.0100, L501.9985, L3890.6301 ####[facility] [address] [place], [address] Basophils/100 WBC (Bld) 0.3 % Normal 0-1 [facility] Comment on above: Performed By: #### L 3890.6006, L509.4006, L509.8002, BTS, L900.0098, L3890.6102, L100.0100, L501.9985, L3890.6301 ####[facility] [address] [facility] [place], [address] Eosinophils/100 WBC (Bld) 1.3 % Normal 0-5 [facility] Comment on above: Performed By: #### L 3890.6006, L509.4006, L509.8002, BTS, L900.0098, L3890.6102, L100.0100, L501.9985, L3890.6301 ####[facility] [address] [facility] [place], [address] Erythrocyte distribution width (RBC) [Ratio] 13.6 % Normal 11.6-14.6 [facility] Comment on above: Performed By: #### L 3890.6006, L509.4006, L509.8002, BTS, L900.0098, L3890.6102, L100.0100, L501.9985, L3890.6301 ####[facility] [address] [place], [address] Hematocrit (Bld) [Volume fraction] 38.5 % Normal 37-47 [facility] Comment on above: Performed By: #### L 3890.6006, L509.4006, L509.8002, BTS, L900.0098, L3890.6102, L100.0100, L501.9985, L3890.6301 ####[facility] [address] [place], [address] Hemoglobin (Bld) [Mass/Vol] 13.0 g/dL Normal 12.0-15.0 [facility] Comment on above: Performed By: #### L 3890.6006, L509.4006, L509.8002, BTS, L900.0098, L3890.6102, L100.0100, L501.9985, L3890.6301 ####[facility] [address] [place], [address] IG% 0.300 Normal 0.0-0.9 [facility] Comment on above: Result Comment: IG% - Immature Granulocytes (promyelocytes, myelocytes and metamyelocytes) > 1% indicates that a LEFT SHIFT is Present. Performed By: #### L 3890.6006, L509.4006, L509.8002, BTS, L900.0098, L3890.6102, L100.0100, L501.9985, L3890.6301 ####[facility] [address] [place], [address] Lymphocytes/100 WBC (Bld) 24.8 % Normal 19-41 [facility] Comment on above: Performed By: #### L 3890.6006, L509.4006, L509.8002, BTS, L900.0098, L3890.6102, L100.0100, L501.9985, L3890.6301 ####[facility] [address] [place], [address] MCH (RBC) [Entitic mass] 28.1 pg Normal 27.0-32.0 [facility] Comment on above: Performed By: #### L 3890.6006, L509.4006, L509.8002, BTS, L900.0098, L3890.6102, L100.0100, L501.9985, L3890.6301 ####[facility] [address] [place], [address] MCHC (RBC) [Mass/Vol] 33.8 g/dL Normal 32-36 [facility] Comment on above: Performed By: #### L 3890.6006, L509.4006, L509.8002, BTS, L900.0098, L3890.6102, L100.0100, L501.9985, L3890.6301 ####[facility] [address] [place], [address] MCV (RBC) [Entitic vol] 83.2 fL Normal 81-99 [facility] Comment on above: Performed By: #### L 3890.6006, L509.4006, L509.8002, BTS, L900.0098, L3890.6102, L100.0100, L501.9985, L3890.6301 ####[facility] [address] [place], [address] Monocytes/100 WBC (Bld) 5.2 % Normal 0-10 [facility] Comment on above: Performed By: #### L 3890.6006, L509.4006, L509.8002, BTS, L900.0098, L3890.6102, L100.0100, L501.9985, L3890.6301 ####[facility] [address] [place], [address] Neutrophils/100 WBC (Bld) 68.1 % Normal 47-70 [facility] Comment on above: Performed By: #### L 3890.6006, L509.4006, L509.8002, BTS, L900.0098, L3890.6102, L100.0100, L501.9985, L3890.6301 ####[facility] [address] [place], [address] Nucleated RBC (Bld) [#/Vol] 0 10*3/uL Normal 0-5 [facility] Comment on above: Performed By: #### L 3890.6006, L509.4006, L509.8002, BTS, L900.0098, L3890.6102, L100.0100, L501.9985, L3890.6301 ####[facility] [address] [place], [address] Platelet mean volume (Bld) [Entitic vol] 11.4 fL Normal 6.2-12.0 [facility] Comment on above: Performed By: #### L 3890.6006, L509.4006, L509.8002, BTS, L900.0098, L3890.6102, L100.0100, L501.9985, L3890.6301 ####[facility] [address] [place], [address]( Platelets (Bld) [#/Vol] 269 10*3/uL Normal 150-450 [facility] Comment on above: Performed By: #### L 3890.6006, L509.4006, L509.8002, BTS, L900.0098, L3890.6102, L100.0100, L501.9985, L3890.6301 ####[facility] [address] [place], [address] RBC (Bld) [#/Vol] 4.63 10*6/uL Normal 4.2-5.4 [facility] Comment on above: Performed By: #### L 3890.6006, L509.4006, L509.8002, BTS, L900.0098, L3890.6102, L100.0100, L501.9985, L3890.6301 ####[facility] [address] [place], [address] RDW SD 41.1 fl Normal 35.1-43.9 [facility] Comment on above: Performed By: #### L 3890.6006, L509.4006, L509.8002, BTS, L900.0098, L3890.6102, L100.0100, L501.9985, L3890.6301 ####[facility] [address] [place], [place], [address](676) WBC (Bld) [#/Vol] 9.8 10*3/uL Normal 4.4-11.0 [facility] Comment on above: Performed By: #### L 3890.6006, L509.4006, L509.8002, BTS, L900.0098, L3890.6102, L100.0100, L501.9985, L3890.6301 ####[facility] [address] [place], [place], [address] Eosinophil percentageOrdered By: Earline Andrade on 04-02-2024 Eosinophils/100 WBC (Bld) 1.3 % 0-5 [facility] Erythrocyte distribution wid th ratioOrdered By: Earline Andrade on 04-02-2024 Erythrocyte distribution width (RBC) [Ratio] 13.6 % 11.6-14.6 [facility] Erythrocyte distribution wid th standard deviationOrdered By: Earline Andrade on 04-02-2024 Erythrocyte distribution width (RBC) [Entitic vol] 41.1 fL 35.1-43.9 [facility] Erythrocyte distribution width (RBC) [Ratio] 41.1 fl 35.1-43.9 [facility] HBV surface Ag Ql (S)Ordered By: Earline Andrade on 04-02-2024 Hepatitis B Surface Antigen Non-Reactive Nonreactive [facility] Comment on above: Reactive: Presumptiv e evidence of HBV. Repeatedly reactive samples must be confirmed using a neutralization test ([employer] HBsAg Confirmatory Test)Non-Reactive: HBsAg not detected; does not exclude the possibility of exposure to HBV Hematocrit Auto (Bld) [Volum e fraction]Ordered By: Earline Andrade on 04-02-2024 Hematocrit (Bld) [Volume fraction] 38.5 % 37-47 [facility] Hemoglobin A1c percentageOrd ered By: Earline Andrade on 04-02-2024 HbA1c (Bld) [Mass fraction] 5.2 % Low >5.7 [facility] Hemoglobin measurementOrdere d By: Earline Andrade on 04-02-2024 Hemoglobin (Bld) [Mass/Vol] 13.0 g/dL 12.0-15.0 [facility] Hepatitis C antibodyOrdered By: Earline Andrade on 04-02-2024 Hepatitis C Antibody Non-Reactive Nonreactive [facility] Comment on above: Reactive: Presumptiv e evidence of antibodies to HCV. Follow CDC recommendations for supplemental testing.Non-Reactive: Antibodies to HCV were not detected; does not exclude the possibility of exposure to HCVReactive Results are presumptive evidence of antibodies to HCV. Follow CDC recommendations for supplemental testing.Order confirmation testing: HCV Quant by PCR testing - HCVPCR #[id number] Non Reactive: < 0.8 Equivocal: >/= 0.8 to < 1.0 Reactive: >/= 1.0The CDC requires that a reactive/equivocal HCV antibody result be sent out for confirmation. HCV Quant by PCR testing. Immature granulocytes/100 WB C Auto (Bld)Ordered By: Earline Andrade on 04-02-2024 Immature granulocytes/100 WBC (Bld) 0.300 % 0.0-0.9 [facility] Comment on above: IG% - Immature Granu locytes (promyelocytes, myelocytes and metamyelocytes) > 1% indicates that a LEFT SHIFT is Present. L3890.6006on 04-02-2024 HIV Non-Reactive Normal Nonreactive [facility] Comment on above: Result Comment: Non- Reactive Reactive Repeatedly reactive samples must be confirmed according to CDC recommended confirmatory algorithms. The subresults for either HIVAG or AHIV can be used as an aid in the selection of the confirmation algorithm for reactive samples. Send out specimens with Reactive results to [facility] for confirmation. Order the HIV antibody detection and differentiation: #[id number] Performed By: #### M 8200.0100 #### [facility] [address] [place], [address] L3890.6301on 04-02-2024 Hepatitis C Ab Non-Reactive Normal Nonreactive [facility] Comment on above: Result Comment: Reac tive: Presumptive evidence of antibodies to HCV. Follow CDC recommendations for supplemental testing. Non-Reactive: Antibodies to HCV were not detected; does not exclude the possibility of exposure to HCV Reactive Results are presumptive evidence of antibodies to HCV. Follow CDC recommendations for supplemental testing. Order confirmation testing: HCV Quant by PCR testing - HCVPCR #[id number] Non Reactive: < 0.8 Equivocal: >/= 0.8 to < 1.0 Reactive: >/= 1.0 The [facility] requires that a reactive/equivocal HCV antibody result be sent out for confirmation. HCV Quant by PCR testing. Performed By: #### M 8200.0100 #### [facility] [address] [facility] [place], [address] L509.4006on 04-02-2024 Rubella IgG REAC Normal Nonreactive [facility] Comment on above: Result Comment: Anti body Result: Interpretation Non-Reactive: Non-Immune Reactive: Immune The following results were obtained with the [employer] Rubella IgG assay. Results from assays of other manufacturers cannot be used interchangeably. Performed By: #### L 3890.6006, L509.4006, L509.8002, BTS, L900.0098, L3890.6102, L100.0100, L501.9985, L3890.6301 ####[facility] [address] [place], [address] L509.8002on 04-02-2024 Syphilis Abs Non-Reactive Normal Nonreactive [facility] Comment on above: Performed By: #### M 8200.0100 #### [facility] [address] [facility] [place], [address] Laboratory - Chemistry and C hemistry - challengeOrdered By: Maris Aragon on 04-02-2024 Glucose Ql (U) Negative [facility] Laboratory - Microbiology an d Antimicrobial susceptibilityOrdered By: Earline Andrade on 04-02-2024 HBV surface Ag Ql (S) Non-Reactive Nonreactive [facility] Comment on above: Reactive: Presumptiv e evidence of HBV. Repeatedly reactive samples must be confirmed using a neutralization test ([employer] HBsAg Confirmatory Test)Non-Reactive: HBsAg not detected; does not exclude the possibility of exposure to HBV Laboratory - UrinalysisOrder ed By: Maris Aragon on 04-02-2024 Protein Ql (U) Negative [facility] Lymphocytes Auto (Unsp spec) [#/Vol]Ordered By: Earline Andrade on 04-02-2024 Lymphocytes (Bld) [#/Vol] 2.43 10*3/uL 0.83-4.51 [facility] Lymphocytes/100 WBC Auto (Un sp spec)Ordered By: Earilne Andrade on 04-02-2024 Lymphocytes/100 WBC (Bld) 24.8 % 19-41 [facility] MCV (mean corpuscular volume ) determinationOrdered By: Earline Andrade on 04-02-2024 MCV (RBC) [Entitic vol] 83.2 fL 81-99 [facility] Mean corpuscular hemoglobin (MCH) determinationOrdered By: Earline Andrade on 04-02-2024 MCH (RBC) [Entitic mass] 28.1 pg 27.0-32.0 [facility] Mean corpuscular hemoglobin concentration (MCHC) determinationOrdered By: Earline Andrade on 04-02-2024 MCHC (RBC) [Mass/Vol] 33.8 g/dL 32-36 [facility] Mean platelet volume determi nationOrdered By: Earline Andrade on 04-02-2024 Platelet mean volume (Bld) [Entitic vol] 11.4 fL 6.2-12.0 [facility] Miscellaneous procedureOrder ed By: Earline Andrade on 04-02-2024 Miscellaneous Test Comment SEE SCANNED REPORT [facility] Monocyte percentageOrdered B y: Earline Andrade on 04-02-2024 Monocytes/100 WBC (Bld) 5.2 % 0-10 [facility] NATERAon 04-02-2024 NATURA SEE SCANNED REPORT Normal [facility] Comment on above: Performed By: #### L 3890.6006, L509.4006, L509.8002, BTS, L900.0098, L3890.6102, L100.0100, L501.9985, L3890.6301 ####[facility] [address] [place], [address] Neutrophil percentageOrdered By: Earline Andrade on 04-02-2024 Neutrophils/100 WBC (Bld) 68.1 % 47-70 [facility] No Panel InformationOrdered By: Earline Andrade on 04-02-2024 HIV (1&2) Antibody Non-Reactive Nonreactive [facility] Comment on above: Non-ReactiveReactive Repeatedly reactive samples must be confirmed according to CDC recommended confirmatory algorithms. The subresults for either HIVAG or AHIV can be used as an aid in the selection of the confirmation algorithm for reactive samples.Send out specimens with Reactive results to [facility] for confirmation.Order the HIV antibody detection and differentiation: #[id number] Rubella IgG Antibody REAC Nonreactive [facility] Comment on above: Antibody Result: Int erpretationNon-Reactive: Non-ImmuneReactive: ImmuneThe following results were obtained with the [employer] Rubella IgG assay. Results from assays of other manufacturers cannot be used interchangeably. Syphilis Total Antibody Non-Reactive Nonreactiv e [facility] Nucleated red blood cell per centageOrdered By: Earline Andrade on 04-02-2024 Nucleated RBC/100 WBC (Bld) [Ratio] 0 % 0-5 [facility] Concert Singer Office Visit Reporton 04-02-2024 Concert Singer Office Visit Report [facility]'[address], [address] [place] [address] OFFICE VISIT Date of Service: 04/02/24 MR#: [id number] Acct: [id number] Name: FEDERICOSAMEER KELSEY Rep #: [id number] : 1990 Provider: Dr. 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 Is patient in pain?: No Feel stressed/tense/nervou s/anxious/difficulty sleeping: not at all Allergies No Known Allergies Allergy (Verified 04/02/24 09:20) Medications ???Medication ???Instructions ???Recorded ???Confirmed ???Type multivit-min no.71-iron fum 28 cap PO 02/23/24 04/02/24 History mg-folate no.1 1 mg-dha 300 mg capsule (PNV-[place]) Last Menstrual Period: 12/21/23 Zika: Zika virus screening: Negative : No Have you fallen in the past year?: No PFSH PFSH Medical History Seasonal allergies History of frequent headaches Surgical History Bapchule teeth extracted Family History Grandmother CVA (cerebral vascular accident) Maternal Diabetes Maternal Grandfather Myocardial infarction, Onset Age: 54 Maternal Social History adopted: No household members: spouse housing: house number of children: 0 current occupational status: employed current occupation: [employer] current occupational exposures/hazards: No pets and animals: Yes pets and animals: dog(s) history of recent travel: Yes ([facility] in January) out of state: Yes out [...] physical activity do you participate in: none ganesh/jain: Buddhist seatbelt use: always do you feel safe [...] use, Childb (more content not included)... Normal [facility] Platelet countOrdered By: Ishan Andrade on 04-02-2024 Platelets (Bld) [#/Vol] 269 10*3/uL 150-450 [facility] RBC Auto (Bld) [#/Vol]Ordere d By: Earline Andrade on 04-02-2024 RBC (Bld) [#/Vol] 4.63 10*6/uL 4.2-5.4 [facility] Type AND Screenon 04-02-2024 Ab SCREEN GEL Negative Normal [facility] Comment on above: Order Comment: PN Performed By: #### L 3890.6006, L509.4006, L509.8002, BTS, L900.0098, L3890.6102, L100.0100, L501.9985, L3890.6301 ####[facility] [address] [place], [address] White blood cell (WBC) count Ordered By: Earline Andrade on 04-02-2024 WBC (Bld) [#/Vol] 9.8 10*3/uL 4.4-11.0 [facility] Chlamydia/GC MICAH aptimaon CHLAMY,NUC ACID Negative Normal Negative [facility] Comment on above: Performed By: #### M 100.2200, L7000.1800 #### [facility] [address] [place], [address] GC BY NUC ACID Negative Normal Negative [facility] Comment on above: Result Comment: Perf ormed at: =G - [facility] [address] [place], [place] [id number] Teacher Music: Lori Coppola MD, Phone: [phone] Performed By: #### M 100.2200, L7000.1800 #### [facility] [address] [place], [address] Urine Cultureon 03-02-2024 URC Culture exhibits no growth. Normal [facility] Comment on above: Performed By: #### M 100.2200, L7000.1800 #### [facility] [address] [place], [address] C. trachomatis rRNA MICAH+prob e Ql (Unsp spec)Ordered By: Earline Andrade on 03-01-2024 Chlamydia DNA (MICAH) Negative Negative [facility] Chlamydia trachomatis rRNA d etection by probe and target amplification methodOrdered By: Earlien Andrade on 03-01-2024 C. trachomatis rRNA MICAH+probe Ql (Unsp spec) Negative Negative [facility] Neisseria gonorrhoeae nuclei c acid detection by amplified probe techniqueOrdered By: Earline Andrade on 03-01-2024 N. gonorrhoeae DNA MICAH+probe Ql (Unsp spec) Negative Negative [facility] Comment on above: Performed at: =G - [facility] [address] [place], [place] [id number] Director: Lori Coppola MD, Phone: [phone] Concert Singer Office Visit Reporton 03-01-2024 Concert Singer Office Visit Report [facility]'[address] [place] [address] OFFICE VISIT Date of Service: 03/01/24 MR#: [id number] Acct: [id number] Name: SAMEER CABALLERO Rep #: [id number] : 1990 Provider: MARIO Fournier ams Age/Sex: 33/F Location: [facility] [place] Status: Signed Intake Vital Signs 12/25/23 07:48 03/01/24 14:33 Height 5 ft 5 in 5 ft 5 in Weight: 268 lb 267 lb 2 oz BMI 44.6 44.4 BP 132/85 H 137/83 H 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, 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, 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 Is patient in pain?: No Allergies No Known Allergies Allergy (Verified 03/01/24 14:31) Medications ???Medication ???Instructions ???Recorded ???Confirmed ???Type multivit-min no.71-iron fum 28 cap PO 02/23/24 02/23/24 History mg-folate no.1 1 mg-dha 300 mg capsule (PNV-[place]) Last Menstrual Period: 12/21/23 Zika: Zika virus screening: Negative : Yes Have you fallen in the past year?: No PFSH PFSH Medical History Seasonal allergies History of frequent headaches Surgical History Bapchule teeth extracted Family History Grandmother CVA (cerebral vascular accident) Maternal Diabetes Maternal Grandfather Myocardial infarction, Onset Age: 54 Maternal Social History adopted: No household members: spouse housing: house number of children: 0 service: No current occupational status: employed current occupation: [employer] current occupational exposures/hazards: No pets and animals: [...] physical activity do you participate in: none ganesh/jain: Buddhist seatbelt use: always do you feel safe [...] Genetic Disease: (more content not included)... Normal [facility] Urine cultureOrdered By: Riccardo Andrade on 03-01-2024 Bacteria identified Cx Nom (U) Culture exhibits no growth. [facility] PAP IG HPV APTIMA 16/18,45on 01-01-2024 ADEQ Comment Normal . [facility] Comment on above: Order Comment: Speci men Comment: [id number] Comment: Source.............CervixSpecimen Comment: No. of containers..01 ThinPrep Vial Result Comment: Sati sfactory for evaluation. Endocervical and/or squamous metaplastic cells (endocervical component) are present. Performed By: #### M 8200.0100 #### [facility] [address] [place], [place], [address] COMM . Normal . [facility] Comment on above: Order Comment: Speci men Comment: [id number] Comment: Source.............CervixSpecimen Comment: No. of containers..01 ThinPrep Vial Performed By: #### M 8200.0100 #### [facility] [address] [place], [address] COMMENT Comment Normal . [facility] Comment on above: Order Comment: Speci men Comment: [id number] Comment: Source.............CervixSpecimen Comment: No. of containers..01 ThinPrep Vial Result Comment: This liquid based ThinPrep(R) pap test was screened with the use of an image guided system. Performed By: #### Cm 8200.0100 #### [facility] [address] [place], [place], [id number] DIAG Comment Normal . [facility] Comment on above: Order Comment: Speci men Comment: [id number] Comment: Source.............CervixSpecimen Comment: No. of containers..01 ThinPrep Vial Result Comment: NEGA TIVE FOR INTRAEPITHELIAL LESION OR MALIGNANCY. Performed By: #### M 8200.0100 #### [facility] [address] [place], [place], [address] HPV APTIMA, HR Positive Abnormal Negative [facility] Comment on above: Order Comment: Speci men Comment: [id number] Comment: Source.............CervixSpecimen Comment: No. of containers..01 ThinPrep Vial Result Comment: This nucleic acid amplification test detects fourteen high- risk HPV types (16,18,31,33,35,39,45,51,52,56,58,59,66,68) without differentiation. Performed By: #### M 8200.0100 #### [facility] [address] [place], [place], [address] HPV Lizette 18,45 Positive Abnormal Negative [facility] Comment on above: Order Comment: Speci men Comment: [id number] Comment: Source.............CervixSpecimen Comment: No. of containers..01 ThinPrep Vial Result Comment: Perf ormed at: [address] [id number] Teacher Music: Alexandro Burrell PhD, Phone: [phone] Performed at: [address] [id number] Teacher Music: Lori Coppola MD, Phone: [phone] Performed at: =[address] [id number] Teacher Music: Lori Coppola MD, Phone: [phone] Performed By: #### M 8200.0100 #### [facility] [address] [facility] [address] [place], [place], [address] HPV Lizette Rfx Comment Normal . [facility] Comment on above: Order Comment: Speci men Comment: [id number] Comment: Source.............CervixSpecimen Comment: No. of containers..01 ThinPrep Vial Result Comment: Yecenia chávez, see HPV Genotype results. Performed By: #### M 8200.0100 #### [facility] [address] [place], [address] HPV Genotype 16 Negative Normal Negative [facility] Comment on above: Order Comment: Speci men Comment: [id number] Comment: Source.............CervixSpecimen Comment: No. of containers..01 ThinPrep Vial Performed By: #### M 8200.0100 #### [facility] [address] [place], [place], [address] PAPSMR Comment Normal . [facility] Comment on above: Order Comment: Speci men Comment: [id number] Comment: Source.............CervixSpecimen Comment: No. of containers..01 ThinPrep Vial Result Comment: The Pap smear is a screening test designed to aid in the detection of premalignant and malignant conditions of the uterine cervix. It is not a diagnostic procedure and should not be used as the sole means of detecting cervical cancer. Both false-positive and false-negative reports do occur. Performed By: #### M 8200.0100 #### [facility] [address] [place], [place], [id number] PERFORM Comment Normal . [facility] Comment on above: Order Comment: Speci men Comment: [id number] Comment: Source.............CervixSpecimen Comment: No. of containers..01 ThinPrep Vial Result Comment: Maritza Silva, Jewellery Designer (ASCP) Performed By: #### Cm 8200.0100 #### [facility] [address] [place], [place], [id number] Plsql Developer Cyto stain Nom (C vx/Vag) [ID]Ordered By: Laura Lechuga on 12-25-2023 Pap Smear Performed By Comment . [facility] Comment on above: Cata Silva, Cyto technologist (ASCP) Cytology report Cyto stain D oc (Cvx/Vag)Ordered By: Laura Lechuga on 12-25-2023 Thin Prep Pap Smear Comment . [facility] Comment on above: The Pap smear is [...] 12-25-2023 HPV Genotype Special Info Comment . [facility] Comment on above: Criteria met, see HP V Genotype results. HPV 16 DNA Probe+sig amp Ql (Cvx)Ordered By: Laura Lechuga on 12-25-2023 HPV Type 16 Comment Negative Negative [facility] HPV 16+18+31+33+35+39+45+51+ 52+56+58+59+66+68 DNA Probe+sig amp Ql (Cvx)Ordered By: Laura Lechuga on 12-25-2023 Human Papillomavirus High Risk Positive High Negative [facility] Comment on above: This nucleic acid am plification test detects fourteen high-risk HPV types (16,18,31,33,35,39,45,51,52,56,58,59,66,68)without differentiation. HPV E6+E7 mRNA MICAH+probe Ql (Cvx)Ordered By: Laura Lechuga on 12-25-2023 HPV Type 18 Comment Positive High Negative [facility] Comment on above: Performed at: [facility] [address] [id number] Director: Alexandro Burrell PhD, Phone: [phone] at: [facility] [address] [id number] Director: Lori Coppola MD, Phone: [phone] at: = - [address] [id number] Director: Lori Coppola MD, Phone: [phone] Image-guided ThinPrep PapOrd ered By: Laura Lechuga on 12-25-2023 Pap Smear Note Comment . [facility] Comment on above: This liquid based Th inPrep(R) pap test was screened withthe use of an image guided system. Image-guided liquid-based Pa pOrdered By: Laura Lechuga on 12-25-2023 Pap Smear Diagnosis Comment . [facility] Comment on above: NEGATIVE FOR INTRAEP ITHELIAL LESION OR MALIGNANCY. 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 Has not been to a cane pusher since 2018ish. She is unsure where this [...] size normal (more content not included)... Normal [facility] Service comment (Unsp spec) [Interp]Ordered By: Laura Lechuga on 12-25-2023 Pap Smear Comment (3) . . [facility] Vital Signs Date Time Vital Sign Value Performing Clinician Alber olvera 09-17-2024 13:22-0400 Body height 165.1 cm No Primary Care Physician [facility] 09-17-2024 13:22-0400 Body mass index (BMI) [Ratio] 52.3 kg/m2 No Primary Care Physician [facility] 09-17-2024 13:22-0400 Body weight 142.59 kg No Primary Care Physician [facility] 09-17-2024 13:22-0400 Diastolic blood pressure 98 mm[Hg] No Primary Care Physician [facility] 09-17-2024 13:22-0400 Systolic blood pressure 138 mm[Hg] No Primary Care Physician [facility] 09-13-2024 16:17-0400 Body height 165.1 cm No Primary Care Physician [facility] 09-13-2024 16:17-0400 Body mass index (BMI) [Ratio] 52.2 kg/m2 No Primary Care Physician [facility] 09-13-2024 16:17-0400 Body weight 142.42 kg No Primary Care Physician [facility] 09-13-2024 16:11-0400 Diastolic blood pressure 82 mm[Hg] No Primary Care Physician [facility] 09-13-2024 16:11-0400 Heart rate 96 /min No Primary Care Physician [facility] 09-13-2024 16:11-0400 Systolic blood pressure 136 mm[Hg] No Primary Care Physician [facility] 09-13-2024 14:10-0400 Body temperature 97.9 [degF] No Primary Care Physician [facility] 09-13-2024 14:10-0400 Respiratory rate 16 /min No Primary Care Physician [facility] 09-13-2024 14:09-0400 SaO2% (BldA) [Mass fraction] 99 % No Primary Care Physician [facility] 09-10-2024 08:26-0400 Body height 165.1 cm No Primary Care Physician [facility] 09-10-2024 08:25-0400 Body mass index (BMI) [Ratio] 51.8 kg/m2 No Primary Care Physician [facility] 09-10-2024 08:25-0400 Body weight 141.26 kg No Primary Care Physician [facility] 09-10-2024 08:25-0400 Diastolic blood pressure 88 mm[Hg] No Primary Care Physician [facility] 09-10-2024 08:25-0400 Systolic blood pressure 139 mm[Hg] No Primary Care Physician [facility] 09-02-2024 08:49-0400 Body height 165.1 cm No Primary Care Physician [facility] 09-02-2024 08:49-0400 Body mass index (BMI) [Ratio] 50 kg/m2 No Primary Care Physician [facility] 09-02-2024 08:49-0400 Body weight 136.3 kg No Primary Care Physician [facility] 09-02-2024 08:49-0400 Diastolic blood pressure 87 mm[Hg] No Primary Care Physician [facility] 09-02-2024 08:49-0400 Systolic blood pressure 132 mm[Hg] No Primary Care Physician [facility] 08-26-2024 10:22-0400 Diastolic blood pressure 62 mm[Hg] No Primary Care Physician [facility] 08-26-2024 10:22-0400 Heart rate 87 /min No Primary Care Physician [facility] 08-26-2024 10:22-0400 Systolic blood pressure 136 mm[Hg] No Primary Care Physician [facility] 08-26-2024 09:49-0400 Body height 165.1 cm No Primary Care Physician [facility] 08-26-2024 09:49-0400 Body mass index (BMI) [Ratio] 50.6 kg/m2 No Primary Care Physician [facility] 08-26-2024 09:49-0400 Body weight 138.1 kg No Primary Care Physician [facility] 08-26-2024 09:46-0400 Respiratory rate 16 /min No Primary Care Physician [facility] 08-26-2024 08:40-0400 Body height 165.1 cm No Primary Care Physician [facility] 08-26-2024 08:40-0400 Body mass index (BMI) [Ratio] 50.4 kg/m2 No Primary Care Physician [facility] 08-26-2024 08:40-0400 Body weight 137.55 kg No Primary Care Physician [facility] 08-26-2024 08:40-0400 Diastolic blood pressure 84 mm[Hg] No Primary Care Physician [facility] 08-26-2024 08:40-0400 Systolic blood pressure 127 mm[Hg] No Primary Care Physician [facility] 08-19-2024 08:37-0400 Body height 165.1 cm No Primary Care Physician [facility] 08-19-2024 08:37-0400 Body mass index (BMI) [Ratio] 49.6 kg/m2 No Primary Care Physician [facility] 08-19-2024 08:37-0400 Body weight 135.34 kg No Primary Care Physician [facility] 08-19-2024 08:37-0400 Diastolic blood pressure 77 mm[Hg] No Primary Care Physician [facility] 08-19-2024 08:37-0400 Systolic blood pressure 126 mm[Hg] No Primary Care Physician [facility] 08-12-2024 08:11-0400 Body mass index (BMI) [Ratio] 49.4 kg/m2 No Primary Care Physician [facility] 08-12-2024 08:11-0400 Body weight 134.88 kg No Primary Care Physician [facility] 08-12-2024 08:11-0400 Diastolic blood pressure 84 mm[Hg] No Primary Care Physician [facility] 08-12-2024 08:11-0400 Systolic blood pressure 130 mm[Hg] No Primary Care Physician [facility] 07-30-2024 08:28-0400 Body height 165.1 cm No Primary Care Physician [facility] 07-30-2024 08:22-0400 Body mass index (BMI) [Ratio] 48.6 kg/m2 No Primary Care Physician [facility] 07-30-2024 08:22-0400 Body weight 132.44 kg No Primary Care Physician [facility] 07-30-2024 08:22-0400 Diastolic blood pressure 78 mm[Hg] No Primary Care Physician [facility] 07-30-2024 08:22-0400 Systolic blood pressure 118 mm[Hg] No Primary Care Physician [facility] 07-16-2024 15:29-0400 Body height 165.1 cm No Primary Care Physician [facility] 07-16-2024 15:29-0400 Body mass index (BMI) [Ratio] 49.1 kg/m2 No Primary Care Physician [facility] 07-16-2024 15:29-0400 Body weight 133.92 kg No Primary Care Physician [facility] 07-16-2024 15:29-0400 Diastolic blood pressure 74 mm[Hg] No Primary Care Physician [facility] 07-16-2024 15:29-0400 Systolic blood pressure 120 mm[Hg] No Primary Care Physician [facility] 06-24-2024 15:33-0400 Body height 165.1 cm No Primary Care Physician [facility] 06-24-2024 15:31-0400 Body mass index (BMI) [Ratio] 48.4 kg/m2 No Primary Care Physician [facility] 06-24-2024 15:31-0400 Body weight 132.1 kg No Primary Care Physician [facility] 06-24-2024 15:31-0400 Diastolic blood pressure 83 mm[Hg] No Primary Care Physician [facility] 06-24-2024 15:31-0400 Systolic blood pressure 127 mm[Hg] No Primary Care Physician [facility] 05-29-2024 07:25-0400 Body mass index (BMI) [Ratio] 47.5 kg/m2 No Primary Care Physician [facility] 05-29-2024 07:25-0400 Body weight 129.44 kg No Primary Care Physician [facility] 05-29-2024 07:25-0400 Diastolic blood pressure 80 mm[Hg] No Primary Care Physician [facility] 05-29-2024 07:25-0400 Systolic blood pressure 120 mm[Hg] No Primary Care Physician [facility] 05-02-2024 08:23-0400 Body mass index (BMI) [Ratio] 46.3 kg/m2 No Primary Care Physician [facility] 05-02-2024 08:23-0400 Body weight 126.15 kg No Primary Care Physician [facility] 05-02-2024 08:23-0400 Diastolic blood pressure 84 mm[Hg] No Primary Care Physician [facility] 05-02-2024 08:23-0400 Systolic blood pressure 126 mm[Hg] No Primary Care Physician [facility] 04-02-2024 09:19-0500 Body height 165.1 cm Laura Ramirezman MATHEMATICS LECTURER-C Work Phone: [facility] 04-02-2024 09:19-0500 Body mass index (BMI) [Ratio] 44.1 kg/m2 Laura Ramirezman MATHEMATICS LECTURER-C Work Phone: [facility] 04-02-2024 09:19-0500 Body weight 120.42 kg Laura Ramirezman MATHEMATICS LECTURER-C Work Phone: [facility] 04-02-2024 09:19-0500 Diastolic blood pressure 86 mm[Hg] Laura Ramirezman MATHEMATICS LECTURER-C Work Phone: [facility] 04-02-2024 09:19-0500 Systolic blood pressure 133 mm[Hg] Laura Ramirezman MATHEMATICS LECTURER-C Work Phone: [facility] 03-01-2024 14:33-0500 Body mass index (BMI) [Ratio] 44.4 kg/m2 Laura Barkman MATHEMATICS LECTURER-C Work Phone: [facility] 03-01-2024 14:33-0500 Body weight 121.16 kg Laura Ramirezman MATHEMATICS LECTURER-C Work Phone: [facility] 03-01-2024 14:33-0500 Diastolic blood pressure 83 mm[Hg] Laura Ramirezman MATHEMATICS LECTURER-C Work Phone: [facility] 03-01-2024 14:33-0500 Systolic blood pressure 137 mm[Hg] Laura Barkman MATHEMATICS LECTURER-C Work Phone: [facility] 12-25-2023 07:48-0500 Body mass index (BMI) [Ratio] 44.6 kg/m2 Laura Ramirezman MATHEMATICS LECTURER-C Work Phone: [facility] 12-25-2023 07:48-0500 Body weight 121.56 kg Laura Ramirezman MATHEMATICS LECTURER-C Work Phone: [facility] 12-25-2023 07:48-0500 Diastolic blood pressure 85 mm[Hg] Laura Lechuga MATHEMATICS LECTURER-C Work Phone: [facility] 12-25-2023 07:48-0500 Systolic blood pressure 132 mm[Hg] Laura Lechuga MATHEMATICS LECTURER-C Work Phone: [facility] Encounters Encounter Date Encounter Type Care Provider Facility Start: 09-25-2024 ambulatory Rhina Maysty:[facility] Start: 09-23-2024 ambulatory No Primary Car e Physician Facility:[facility] Start: 09-20-2024 ambulatory No Primary Car e Physician Facility:[facility] Start: 09-17-2024 End: 09-17-2024 Patient encounter procedure Earline Andrade CNM -[facility] Work Phone: Start: 09-17-2024 End: 09-17-2024 ambulatory No Primary Care Physician [facility] Start: 09-13-2024 Non-patient / Non-visit [facility] Start: 09-13-2024 End: 09-13-2024 ambulatory No Primary Care Physician -[facility] Start: 09-13-2024 End: 09-13-2024 Patient encounter procedure Earline Andrade CNM -[facility] Work Phone: Start: 09-10-2024 End: 09-10-[address] Rhina Sweeney DO -[facility] Work Phone: Start: 09-10-2024 End: 09-10-2024 ambulatory No Primary Care Physician -[facility] Start: 09-02-2024 End: 09-02-[address] Rhina Sweeney DO -[facility] Work Phone: Start: 09-02-2024 End: 09-02-2024 ambulatory No Primary Care Physician -[facility] Start: 08-26-2024 ambulatory No Primary Car e Physician Facility:[facility] Start: 08-26-2024 Non-patient / Non-visit Earline Andrade CNM -[facility] Start: 08-26-2024 End: 08-26-[address] Maris Aragon MD -[facility] Work Phone: Start: 08-26-2024 End: 08-26-2024 ambulatory No Primary Care Physician -[facility] Start: 08-21-2024 End: 08-21-2024 ambulatory No Primary Care Physician -Ultrasound [facility] Start: 08-21-2024 End: 08-21-2024 Patient encounter procedure Shea Rodriguez MATHEMATICS LECTURER-C -Ultrasound [facility] Work Phone: Start: 08-21-2024 End: 08-21-2024 ambulatory Shea Rodriguez MATHEMATICS LECTURER Facility:[facility] Start: 08-19-2024 End: 08-19-[address] Rhina Sweeney DO -[facility] Work Phone: Start: 08-19-2024 End: 08-19-2024 ambulatory No Primary Care Physician [facility] Start: 08-12-2024 End: 08-12-[address] Rhina Sweeney DO -[facility] Work Phone: Start: 08-12-2024 End: 08-12-2024 ambulatory No Primary Care Physician Facility:[facility] Start: 07-30-2024 End: 07-30-2024 Patient encounter procedure Shea Rodriguez MATHEMATICS LECTURER-C -[facility] Work Phone: Start: 07-30-2024 End: 07-30-2024 ambulatory No Primary Care Physician [facility] Work Phone: Start: 07-22-2024 End: 07-22-2024 ambulatory No Primary Care Physician [facility] Work Phone: Start: 07-22-2024 End: 07-22-2024 Patient encounter procedure Shea [place] MATHEMATICS LECTURER-C -Ultrasound [facility] Work Phone: Start: 07-22-2024 End: 07-22-2024 ambulatory Shea Jennifer MATHEMATICS LECTURER Facility:[facility] Start: 07-16-2024 End: 07-16-2024 Patient encounter procedure Shea Rodriguez MATHEMATICS LECTURER-C -[facility] Work Phone: Start: 07-16-2024 End: 07-16-2024 ambulatory No Primary Care Physician [facility] Work Phone: Start: 07-03-2024 End: 07-03-2024 ambulatory No Primary Care Physician [facility] Work Phone: Start: 07-03-2024 End: 07-03-[address] Rhina Sweeney DO -Laboratory Work Phone: Start: 07-03-2024 End: 07-03-2024 ambulatory No Primary Care Physician Facility:[facility] Start: 06-24-2024 End: 06-24-[address] Rhina Sweeney DO -[facility] Work Phone: Start: 06-24-2024 End: 06-24-2024 ambulatory No Primary Care Physician [facility] Work Phone: Start: 06-24-2024 End: 06-24-2024 ambulatory Earline Andrade Facility:[facility] Start: 05-29-2024 End: 05-29-2024 Patient encounter procedure Earline UP -[facility] Start: 05-29-2024 End: 05-29-2024 ambulatory No Primary Care Physician Facility:[facility] Start: 05-23-2024 End: 05-23-2024 ambulatory TIMOTEO GUERRERO [facility] Start: 05-07-2024 End: 05-07-2024 ambulatory MARIS ARAGON [facility] Start: 05-02-2024 End: 05-02-2024 Patient encounter procedure Shea Rodriguez MATHEMATICS LECTURER-C -[facility] Work Phone: Start: 05-02-2024 End: 05-02-2024 ambulatory Shea Rodriguez MATHEMATICS LECTURER Facility:[facility] Start: 04-02-2024 End: 04-02-[address] Maris Aragon MD -[facility] Work Phone: Start: 04-02-2024 End: 04-02-2024 ambulatory Laura GABRIEL Work Phone: [facility] Work Phone: Start: 04-02-2024 End: 04-02-2024 ambulatory Earline Andrade Facility:[facility] Start: 03-01-2024 End: 03-01-2024 Patient encounter procedure Earline Andrade CNCm -Laboratory, Specimen Work Phone: Start: 03-01-2024 End: 03-01-2024 Patient encounter procedure Earline Andrade CNM -[facility] Work Phone: Start: 03-01-2024 End: 03-01-2024 ambulatory No Primary Care Physician Facility:[facility] Start: 03-01-2024 End: 03-01-2024 ambulatory No Primary Care Physician Facility:[facility] Start: 12-25-2023 End: 12-25-2023 Patient encounter procedure Laura GABRIEL -Laboratory, [facility] Work Phone: Start: 12-25-2023 End: 12-25-2023 Patient encounter procedure Laura GABRIEL -[facility] Start: 12-25-2023 End: 12-25-2023 Patient encounter status Laura GABRIEL [facility] Start: 12-25-2023 End: 12-25-2023 ambulatory Laura Lechuga Facility:[facility] Start: 12-25-2023 End: 12-25-2023 ambulatory No Primary Care Physician Facility:[facility] Procedures Date Procedure Procedure Detail Performing Clinician Start: 09-13-2024 Ultrasonography for biophysical profile without non-stress testing No Primary Care Physician Start: 08-26-2024 End: 08-26-2024 Bacterial nucleic acid assay No Primary Care Physician Start: 08-26-2024 Beta-hemolytic Strep tococcus culture No Primary Care Physician Start: 08-26-2024 Urine culture No Primar y Care Physician Start: 08-26-2024 Urnls dip stick/tabl [...] HCV Quant by PCR testing - HCVPCR #[id number] Non Reactive: < 0.8 Equivocal: >/= 0.8 to < 1.0 Reactive: >/= 1.0The [facility] requires that a reactive/equivocal HCV antibody result be sent out for confirmation. HCV Quant by PCR testing. Start: 04-02-2024 Procedure No Primary Care Physician Start: 03-01-2024 Urine culture Laura AVENDANOC Work Phone: Plan of Treatment Date Care Activity Detail Author Start: 09-13-2024 Biophysical profile panel [facility] Start: 09-13-2024 Ultrasonography for biophysical profile without non-stress testing OB Biophysical Prof W/O NST [facility] Start: 09-13-2024 Nonstress test [facility] Start: 09-13-2024 Obstetric monitoring [facility] Start: 09-13-2024 [facility] Start: 09-13-2024 Vital signs measurements [facility] Start: 09-13-2024 Patient discharge [facility] Start: 08-26-2024 Bacteria identified in Urine by Culture Urine Culture [facility] Start: 08-26-2024 Group B Streptococcus Culture Group B Streptococcus Culture [facility] Start: 08-26-2024 [facility] Start: 08-26-2024 Nonstress test [facility] Start: 08-26-2024 Biophysical profile panel [facility] Start: 08-26-2024 Obstetric monitoring [facility] Start: 08-26-2024 Ultrasonography for biophysical profile without non-stress testing OB Biophysical Prof W/O NST [facility] Start: 08-26-2024 Vital signs measurements [facility] Start: 08-26-2024 End: 08-26-2024 [facility] Start: 08-26-2024 Patient discharge [facility] Start: 06-24-2024 CBC W Auto Differential panel - Blood [facility] Start: 06-24-2024 Measurement of glucose 2 hours after glucose challenge for glucose tolerance test [facility] Start: 06-24-2024 Serologic test for syphilis [facility] Start: 06-24-2024 [facility] Beta-hemolytic Streptococcus culture [facility] Erythrocyte mean corpuscular volume determination [facility] Biophysical pr ofile panel US [facility] Hematocrit [Volume Fraction] of Blood [facility] Hemoglobin [Mass/vol ume] in Blood [facility] Leukocytes [#/volume ] in Blood [facility] Mean corpuscular hemoglobin concentration determination [facility] Mean corpuscular hemoglobin determination [facility] Neutrophil count [facility] Neutrophil percent differential count [facility] Patient Education Kick Counts ED False Labor OB Triage: Return to Hospital or Notify Physician if you Experience: [facility] Work Phone: Platelets [#/volume] in Blood [facility] Red blood cell count [facility] Red cell distributio n width determination [facility] Ultrasound scan for growth [facility] Ultrasound scan for growth [facility] Urine culture [facility] Immunizations Immunization Date Immunization Notes Care Provider Fa cility 07-16-2024 tetanus toxoid, redu geneva diphtheria toxoid, and acellular pertussis vaccine, adsorbed No Primary Care Physician [facility] Payers Date Payer Category Payer Self-pay 2023 Unknown [id number] 1990 Unknown [id number] 2.16. [id number] 1992 Unknown [id number] 2.16. 840.1.559715.3.579.2.479 1992 Unknown [id number] 2.16. 840.1.245965.3.579.2.479 Unknown [id number] 2.16.8 40.1.478715.3.579.2.462 Unknown [id number] 2.16.8 40.1.633604.3.579.2.462 Unknown [id number] 2.16.8 40.1.624036.3.579.2.462 Unknown [id number] 2.16.8 40.1.135325.3.579.2.462 Unknown [id number] 2.16.8 40.1.557423.3.579.2.462 Unknown [id number] 2.16.8 40.1.770641.3.579.2.462 Unknown [id number] 2.16.8 40.1.300092.3.579.2.462 Unknown [id number] 2.16.8 40.1.895638.3.579.2.462 Unknown [id number] 2.16.8 40.1.783423.3.579.2.462 Unknown [id number] 2.16.8 40.1.314142.3.579.2.462 Unknown [id number] 2.16.8 40.1.032535.3.579.2.462 Unknown [id number] 2.16.8 40.1.219432.3.579.2.462 Unknown [id number] 2.16.8 40.1.979724.3.579.2.462 Unknown [id number] 2.16.8 40.1.880531.3.579.2.462 Unknown [id number] 2.16.8 40.1.756856.3.579.2.462 Unknown [id number] 2.16.8 40.1.736931.3.579.2.462 Unknown [id number] 2.16.8 40.1.449607.3.579.2.462 Unknown [id number] 2.16.8 40.1.631982.3.579.2.462 Unknown [id number] 2.16.8 40.1.143107.3.579.2.462 Unknown [id number] 2.16.8 40.1.870658.3.579.2.462 Unknown [id number] 2.16.8 40.1.961821.3.579.2.462 Unknown [id number] 2.16.8 40.1.110898.3.579.2.462 Unknown [id number] 2.16.8 40.1.506767.3.579.2.462 Unknown [id number] 2.16.8 40.1.057647.3.579.2.462 Unknown [id number] 2.16.8 40.1.656128.3.579.2.462 Unknown [id number] 2.16.8 40.1.303498.3.579.2.462 Unknown [id number] 2.16.8 40.1.791465.3.579.2.462 Unknown [id number] 2.16.8 40.1.220149.3.579.2.462 Social History Date Type Detail Facility Start: 02-23-2024 End: 05-02-2024 Tobacco smoking status OHIS Never smoked tobacco (finding) [facility] Start: 04-14-2024 Sex Male (finding) [facility] Start: 1990 Sex Assigned At Female [facility] Gender Identity Identifies as fe male gender (finding) [facility] Sexual Orientation Heterosexual (finding) [facility] Medical Equipment Procedure Code Equipment Code Equipment Origin al Text Equipment Identifier Dates Blood Sugar Diagnostic (Blood Glucose Test) strip Start: 07-03-2024 Lancets misc Start: 07-03-2024 Blood Sugar Diagnostic (Blood Glucose Test) strip Start: 07-03-2024 Lancets mis Start: 07-03-2024 Blood Sugar Diagnostic (Blood Glucose [...] misc Start: 07-03-2024 Clinical Notes 12-25-2023 to 09-17-2024 Note Date & Type Note Facility 09-17-2024 Progress note Note Date/Time September 17, 2024 1:56pm [facility] [address], [address] [place] [address] OFFICE VISIT Date of Service: 09/17/24 MR#: [id number] Acct: [id number] Name: SAMEER CABALLERO Rep #: [id number] : 1990 Provider: MARIO Andrade Age/Sex: 34/F Location: [facility] Status: Signed Intake Vital Signs 07/16/24 15:29 09/10/24 08:26 09/13/24 16:17 09/17/24 13:22 Height 5 ft 5 in 5 ft 5 in 5 ft 5 in 5 ft 5 in Weight: 314 lb 6 oz BMI 52.3 BP 138/98 H Intake Visit Reasons: 39 wk ob/nst 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 Is patient in pain?: No Allergies No Known Allergies Allergy (Verified 09/17/24 13:20) Medications ?Medication ?Instructions ?Recorded ?Confirmed ?Type multivit-min no.71-iron fum 28 cap PO 02/23/24 5 History mg-folate no.1 1 mg-dha 300 mg capsule (PNV-[place]) blood sugar diagnostic (Blood #120 ea 07/03/24 5 Rx Glucose Test strips) blood-glucose meter #1 ea 07/03/24 09/17/24 Rx lancets #100 ea 07/03/24 09/17/24 Rx Last Menstrual Period: 12/21/23 : No PFSH PFSH Medical History Seasonal allergies History of frequent headaches Surgical History Bapchule teeth extracted Family History Grandmother CVA (cerebral vascular accident) Maternal Diabetes Maternal Grandfather Myocardial infarction, Onset Age: 54 Maternal Social History adopted: No household members: spouse housing: house number of children: 0 current occupational status: employed current occupation: [employer] current occupational exposures/hazards: No pets and animals: Yes pets and animals: dog(s) history of recent travel: Yes ([place] & [place] in January) out of state: [...] physical activity do you participate in: none ganesh/jain: Buddhist seatbelt use: always do you feel safe at home: Yes additional social history: - Mc - hankins History 1 Elective abortions Hx Para 0 Spontaneous abortions Hx # Term Pregnancies Ectopic pregnancies Hx # Pregnancies Multiple births # of living children HPI 39 wk ob/nst Details: SAMEER CABALLERO is a 34 year old who presents for routine OB visit. OB Visit LORY Calculator Estimated Delivery Date Method Current WG Current Estimate 09/26/24 LMP (Certain) 38w 5d Other Estimates 09/25/24 Ultrasound #1 38w 6d Expected Delivery Route/Plan Labor Preferences- CB/BF [...] 2 oz) 126/84 Negative -?-?-?-?-?-?-?-?-?-?-?-?- Negative 146 -?-?-?-?-?-?-?-?-?-?-?-?- MH-No VB. Nausea resolved. Anatomy US next week 05/29/24 -?-?-?-?-?-?-?-?-?-?-?-?- 22w 6d 285 lb 6 oz (+18 lb 6 oz) 120/80 Negative -?-?-?-?-?-?-?-?-?-?-?-?- Negative 155 22 -?-?-?-?-?-?-?-?-?-?-?-?- KW- no vb/ctx. s ome fm. KW- no vb/ctx. some fm. disc ussed CBE classes. glucose discussed 06/24/24 -?-?-?-?-?-?-?-?-?-?-?-?- 26w 4d 291 lb 4 oz (+24 lb 4 oz) 127/83 Negative -?-?-?-?-?-?-?-?-?-?-?-?- Negative 154 28 -?-?-?-?-?-?-?-?-?-?-?-?- JAlexandro- feels dizzy at night on her back. we discussed propping mattress. GCT and 3rd trimester labs today 07/16/24 -?-?-?-?-?-?-?-?-?-?-?-?- 29w 5d 295 lb 4 oz (+28 lb 4 oz) 120/74 Negative -?-?-?-?-?-?-?-?-?-?-?-?- Negative 152 32 -?-?-?-?-?-?-?-?-?-?-?-?- MH-No VB, lof. G ood FM. tdap, larc. Growth US. 07/30/24 -?-?-?-?-?-?-?-?-?-?-?-?- 31w 5d 292 lb (+25 lb) 118/78 Negative -?-?-?-?-?-?-?-?-?-?-?-?- Negative 158 35 -?-?-?-?-?-?-?-?-?-?-?-?- MH-No VB, LOF. G ood Fm. FBS WNL except 2 in 2 weeks. Growth US WNL. rpt 4 wk 08/12/24 -?-?-?-?-?-?-?-?-?-?-?-?- 33w 4d 297 lb 6 oz (+30 lb 6 oz) 130/84 Negative -?-?-?-?-?-?-?-?-?-?-?-?- Negative 140 38 0 -?-?-?-?-?-?-?-?-?-?-?-?- -4 JV- ultr asound due next week. nst reactive. trevon often but cx is closed and she is not feeling them. She did have sex recently. PTL precautions discussed. 08/19/24 -?-?-?-?-?-?-?-?-?-?-?-?- 34w 4d 298 lb 6 oz (+31 lb 6 oz) 126/77 Negative -?-?-?-?-?-?-?-?-?-?-?-?- Negative 140 0.5 -?-?-?-?-?-?-?-?-?-?-?-?- 30 -4 JV- still trevon on the monitor. Today I can almost get my finger through to the head. She feels them less. Plan for gbs next visit incase she goes into labor a little early. 08/26/24 -?-?-?-?-?-?-?-?-?-?-?-?- 35w 4d 303 lb 4 oz (+36 lb 4 oz) 127/84 Negative -?-?-?-?-?-?-?-?-?-?-?-?- Negative 140 -?-?-?-?-?-?-?-?-?-?-?-?- SM- no vb lof go od fm irregular ctx 09/02/24 -?-?-?-?-?-?-?-?-?-?-?-?- 36w 4d 300 lb 8 oz (+33 lb 8 oz) 132/87 Negative -?-?-?-?-?-?-?-?-?-?-?-?- Negative 150 0.5 -?-?-?-?-?-?-?-?-?-?-?-?- -4 JV- fast ing levels are normal, there was one 1 hr pp that was 165. plan is to repeat the growth scan at the beginning of 39 weeks. patient states that if LGA she wants a section over IOL, especially if not a favorable cervix. 09/10/24 -?-?-?-?-?-?-?-?-?-?-?-?- 37w 5d 311 lb 7 oz (+44 lb 7 oz) 139/88 Negative -?-?-?-?-?-?-?-?-?-?-?-?- Negative 140 0.5 -?-?-?-?-?-?-?-?-?-?-?-?- JV- growth scan with [facility] can not be done prior to the . will ask mfm. NST reactive. 09/17/24 -?-?-?-?-?-?-?-?-?-?-?-?- 38w 5d 314 lb 6 oz (+47 lb 6 oz) 138/98 Negative -?-?-?-?-?-?-?-?-?-?-?-?- Negative 145 2 -?-?-?-?-?-?-?-?-?-?-?-?- 60 -2 KW- No vb/ lof/ctx. good fm. Had growth US and BPP today with MFM 09/13. EFW today 4561 grams and >99% AC is 99%. Fasting sugars are 70s-80s. requesting P C/S due to size. ACOG First Trimester First Trimester: Desire for [...] Symptoms of Preeclampsia, Infant Feeding No , [place] Education and Family Medical Leave or Disability Forms ROS Const Reports system reviewed and no additional complaints, except as documented Eyes Reports system reviewed and no additional complaints, except as documented ENT Reports system reviewed and no additional complaints, except as documented Card Reports system reviewed and no additional complaints, except as documented Resp Reports system reviewed and no additional complaints, except as documented GI Reports system reviewed and no additional complaints, except as documented, Denies nausea and Denies vomiting Reports system reviewed and no additional complaints, except as documented Musc Reports system reviewed and no additional complaints, except as documented Skin/Breast Reports system reviewed and no additional complaints, except as documented Neuro Yes system reviewed and no additional complaints, except as documented Psych Reports system reviewed and no additional complaints, except as documented Endo Reports system reviewed and no additional complaints, except as documented Marlon/Lymph Reports system reviewed and no additional complaints, except as documented Aller/Immun Reports system reviewed and no additional complaints, except as documented Exam Const General: cooperative, healthy appearing and no acute distress Orientation: alert, awake and oriented x3 Neck Neck: normal visual inspection and full ROM Resp Effort & Inspection: normal respiratory effort, able to speak in complete sentences and symmetric chest movement GI Inspection: normal to inspection Palpation: soft and other Other: gravid Skin General: no rashes or lesions noted Neuro General: patient alert, patient awake and patient oriented x3 Cognition: normal cognition Speech: speech normal Gait: normal gait Motor: muscle tone normal throughout Extrem General: normal to inspection and full ROM Psych Appearance: grossly normal Mental Status: mental status grossly normal Mood: congruent mood Affect: normal affect Speech and Movement: speech and movement normal Attitude: cooperative Thought Process: normal Thought Content: normal Judgment: judgment good Results POC Urinalysis 2 Dip (Clinic) Office Urine Glucose Negative Last Edit by Kenya Fermin on 09/17/24 13:35 Office Urine Protein Negative Last Edit by Kenya Fermin on 09/17/24 13:35 Coding Level of Care Code OB Routine Diagnoses Elevated BP without diagnosis of hypertension R03.0 Non-stress test nonreactive O28.8 contractions O47.00 LGA (large for gestational age) fetus affecting management of mother O36.60X0 Abnormal glucose tolerance test during , antepartum O99.810 Supervision of high risk in third trimester O09.93 Trimester: third trimester Obesity affecting in third trimester, unspecified obesity type O99.213 Obesity type affecting : unspecified obesity Trimester: third trimester 38 weeks gestation of Z3A.38 Weeks of gestation: 38 weeks HPV in female 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 reactive on WP. d/c home (3) contractions: Status: Acute (4) LGA (large for gestational age) fetus affecting management of mother: Status: Acute Comment: Growth US: 97%ile NST wkly at 34 [...] weeks we can see how it goes. (5) Abnormal glucose tolerance test during , antepartum: Status: Acute Comment: normal 3 hr, however the fasting was elevated. - monitor at home fasting levels: 2 wk of readings WNL except 2 and states high carb snack night prior. Will continue to monitor (6) Supervision of high-risk : Status: Acute Qualifiers: Trimester: third trimester Qualified Code(s): O09.93 - Supervision of high risk , unspecified, third trimester Comment: PRR, , LORY 09/26/24, Mc (7) Obesity affecting : Status: Acute Qualifiers: Obesity type affecting : unspecified obesity Trimester: third trimester Qualified Code(s): O99.213 - Obesity complicating , third trimester Comment: HgbA1c 5.2 , BMI 44. - weekly nsts starting at 34 weeks (8) : Status: Acute Qualifiers: Weeks of gestation: 38 weeks Qualified Code(s): Z3A.38 - 38 weeks gestation of Comment: GBS neg, NIPT low risk, nl anatomy (9) HPV in female: Status: Acute Comment: pap neg 2017 & 2023. Repeat pap 2024 @ pp visit (10) Seasonal allergies: Status: Acute Orders: Orders POC Urinalysis 2 Dip (Clinic) Today Plan Details Additional Comments: ACOG trimester education reviewed and updated. see problem list details for updated plan management information and see below for orders placed at this visit. GA appropriate handout given. 09/17/24 9867 <Electronically signed by Earline rutherford CNM> Date _ Earline Andrade CNM [facility] Signature: Date (if applicable) CC: ~ [facility] Work Phone: 1(573) 340-624408-12-2025 [facility] [address] [place] [address], [address] [place] [address] OFFICE VISIT Date of Service: 09/17/24 MR#: [id number] Acct: [id number] Name: SAMEER CABALLERO Rep #: [id number] : 1990 Provider: MARIO Andrade Age/Sex: 34/F Location: [facility] [place] Status: Signed Intake Vital Signs 07/16/24 15:29 09/10/24 08:26 09/13/24 16:17 09/17/24 13:22 Height 5 ft 5 in 5 ft 5 in 5 ft 5 in 5 ft 5 in Weight: 314 lb 6 oz BMI 52.3 BP 138/98 H Intake Visit Reasons: 39 wk ob/nst 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 Is patient in pain?: No Allergies No Known Allergies Allergy (Verified 09/17/24 13:20) Medications ?Medication ?Instructions ?Recorded ?Confirmed ?Type multivit-min no.71-iron fum 28 cap PO 02/23/24 5 History mg-folate no.1 1 mg-dha 300 mg capsule (PNV-[place]) blood sugar diagnostic (Blood #120 ea 07/03/24 5 Rx Glucose Test strips) blood-glucose meter #1 ea 07/03/24 09/17/24 Rx lancets #100 ea 07/03/24 09/17/24 Rx Last Menstrual Period: 12/21/23 : No PFSH PFSH Medical History Seasonal allergies History of frequent headaches Surgical History Bapchule teeth extracted Family History Grandmother CVA (cerebral vascular accident) Maternal Diabetes Maternal Grandfather Myocardial infarction, Onset Age: 54 Maternal Social History adopted: No household members: spouse housing: house number of children: 0 current occupational status: employed current occupation: [employer] current occupational exposures/hazards: No pets and animals: [...] physical activity do you participate in: none ganesh/jain: Buddhist seatbelt use: always do you feel safe at home: Yes additional social history: - Mc - hankins History 1 Elective abortions Hx Para 0 Spontaneous abortions Hx # Term Pregnancies Ectopic pregnancies Hx # Pregnancies Multiple births # of living children HPI 39 wk ob/nst Details: SAMEER CABALLERO is a 34 year old who presents for routine OB visit. OB Visit LORY Calculator Estimated Delivery Date Method Current WG Current Estimate 09/26/24 LMP (Certain) 38w 5d Other Estimates 09/25/24 Ultrasound #1 38w 6d Expected Delivery Route/Plan Labor Preferences- CB/BF [...] current plan of care details and appropriate ordersplaced. Relevant counseling for the gestational age provided. [...] 2 oz) 126/84 Negative -?-?-?-?-?-?-?-?-?-?-?-?- Negative 146 -?-?-?-?-?-?-?-?-?-?-?-?- MH-No VB. Nausea resolved. Anatomy US next week 05/29/24 -?-?-?-?-?-?-?-?-?-?-?-?- 22w 6d 285 lb 6 oz (+18 lb 6 oz) 120/80 Negative -?-?-?-?-?-?-?-?-?-?-?-?- Negative 155 22 -?-?-?-?-?-?-?-?-?-?-?-?- KW- no vb/ctx. s ome fm. KW- no vb/ctx. some fm. disc ussed CBE classes. glucose discussed 06/24/24 -?-?-?-?-?-?-?-?-?-?-?-?- 26w 4d 291 lb 4 oz (+24 lb 4 oz) 127/83 Negative -?-?-?-?-?-?-?-?-?-?-?-?- Negative 154 28 -?-?-?-?-?-?-?-?-?-?-?-?- JV- feels dizzy at night on her back. we discussed propping mattress. GCT and 3rd trimester labs today 07/16/24 -?-?-?-?-?-?-?-?-?-?-?-?- 29w 5d 295 lb 4 oz (+28 lb 4 oz) 120/74 Negative -?-?-?-?-?-?-?-?-?-?-?-?- Negative 152 32 -?-?-?-?-?-?-?-?-?-?-?-?- -No VB, lof. G ood FM. tdap, larc. Growth US. 07/30/24 -?-?-?-?-?-?-?-?-?-?-?-?- 31w 5d 292 lb (+25 lb) 118/78 Negative -?-?-?-?-?-?-?-?-?-?-?-?- Negative 158 35 -?-?-?-?-?-?-?-?-?-?-?-?- -No VB, LOF. G ood Fm. FBS WNL except 2 in 2 weeks. Growth US WNL. rpt 4 wk 08/12/24 -?-?-?-?-?-?-?-?-?-?-?-?- 33w 4d 297 lb 6 oz (+30 lb 6 oz) 130/84 Negative -?-?-?-?-?-?-?-?-?-?-?-?- Negative 140 38 0 -?-?-?-?-?-?-?-?-?-?-?-?- -4 JV- ultr asound due next week. nst reactive. trevon often but cx is closed and she is not feeling them. She did have sex recently. PTL precautions discussed. 08/19/24 -?-?-?-?-?-?-?-?-?-?-?-?- 34w 4d 298 lb 6 oz (+31 lb 6 oz) 126/77 Negative -?-?-?-?-?-?-?-?-?-?-?-?- Negative 140 0.5 -?-?-?-?-?-?-?-?-?-?-?-?- 30 -4 JV- still trevon on the monitor. Today I can almost get my finger through to the head. She feels them less. Plan for gbs next visit incase she goes into labor a little early. 08/26/24 -?-?-?-?-?-?-?-?-?-?-?-?- 35w 4d 303 lb 4 oz (+36 lb 4 oz) 127/84 Negative -?-?-?-?-?-?-?-?-?-?-?-?- Negative 140 -?-?-?-?-?-?-?-?-?-?-?-?- SM- no vb lof go od fm irregular ctx 09/02/24 -?-?-?-?-?-?-?-?-?-?-?-?- 36w 4d 300 lb 8 oz (+33 lb 8 oz) 132/87 Negative -?-?-?-?-?-?-?-?-?-?-?-?- Negative 150 0.5 -?-?-?-?-?-?-?-?-?-?-?-?- -4 JV- fast ing levels are normal, there was one 1 hr pp that was 165. plan is to repeat the growth scan at the beginning of 39 weeks. patient states that if LGA she wants a section over IOL, especially if not a favorable cervix. 09/10/24 -?-?-?-?-?-?-?-?-?-?-?-?- 37w 5d 311 lb 7 oz (+44 lb 7 oz) 139/88 Negative -?-?-?-?-?-?-?-?-?-?-?-?- Negative 140 0.5 -?-?-?-?-?-?-?-?-?-?-?-?- JV- growth scan with [facility] can not be done prior to the . will ask mfm. NST reactive. 09/17/24 -?-?-?-?-?-?-?-?-?-?-?-?- 38w 5d 314 lb 6 oz (+47 lb 6 oz) 138/98 Negative -?-?-?-?-?-?-?-?-?-?-?-?- Negative 145 2 -?-?-?-?-?-?-?-?-?-?-?-?- 60 -2 KW- No vb/ lof/ctx. good fm. Had growth US and BPP today with MFM 09/13. EFW today 4561 grams and >99% AC is 99%. Fasting sugars are 70s-80s. requesting P C/S due to size. ACOG First Trimester First Trimester: Desire for [...] Immediate [place], Signs and Symptoms of Preeclampsia, Feeding No , [place] Education and Family Medical Leave or Disability Forms ROS Const Reports system reviewed and no additional complaints, except as documented Eyes Reports system reviewed and no additional complaints, except as documented ENT Reports system reviewed and no additional complaints, except as documented Card Reports system reviewed and no additional complaints, except as documented Resp Reports system reviewed and no additional complaints, except as documented GI Reports system reviewed and no additional complaints, except as documented, Denies nausea and Denies vomiting Reports system reviewed and no additional complaints, except as documented Musc Reports system reviewed and no additional complaints, except as documented Skin/Breast Reports system reviewed and no additional complaints, except as documented Neuro Yes system reviewed and no additional complaints, except as documented Psych Reports system reviewed and no additional complaints, except as documented Endo Reports system reviewed and no additional complaints, except as documented Marlon/Lymph Reports system reviewed and no additional complaints, except as documented Aller/Immun Reports system reviewed and no additional complaints, except as documented Exam Const General: cooperative, healthy appearing and no acute distress Orientation: alert, awake and oriented x3 Neck Neck: normal visual inspection and full ROM Resp Effort & Inspection: normal respiratory effort, able to speak in complete sentences and symmetric chest movement GI Inspection: normal to inspection Palpation: soft and other Other: gravid Skin General: no rashes or lesions noted Neuro General: patient alert, patient awake and patient oriented x3 Cognition: normal cognition Speech: speech normal Gait: normal gait Motor: muscle tone normal throughout Extrem General: normal to inspection and full ROM Psych Appearance: grossly normal Mental Status: mental status grossly normal Mood: congruent mood Affect: normal affect Speech and Movement: speech and movement normal Attitude: cooperative Thought Process: normal Thought Content: normal Judgment: judgment good Results POC Urinalysis 2 Dip (Clinic) Office Urine Glucose Negative Last Edit by Kenya Fermin on 09/17/24 13:35 Office Urine Protein Negative Last Edit by Kenya Fermin on 09/17/24 13:35 Coding Level of Care Code OB Routine Diagnoses Elevated BP without diagnosis of hypertension R03.0 Non-stress test nonreactive O28.8 contractions O47.00 LGA (large for gestational age) fetus affecting management of mother O36.60X0 Abnormal glucose tolerance test during , antepartum O99.810 Supervision of high risk in third trimester O09.93 Trimester: third trimester Obesity affecting in third trimester, unspecified obesity type O99.213 Obesity type affecting : unspecified obesity Trimester: third trimester 38 weeks gestation of Z3A.38 Weeks of gestation: 38 weeks HPV in female B97.7 Seasonal allergies J30.2 Assessment and Plan Assessment and Plan (1) Elevated BP without diagnosis of hypertension: Status: Acute (2) Non-stress test nonreactive: Status: Acute Comment: in office BPP 8/8. reactive on WP. d/c home (3) contractions: Status: Acute (4) LGA (large for gestational age) fetus affecting management of mother: Status: Acute Comment: Growth US: 97%ile NST wkly at 34 wk. BS daily WNL. discussed R/B/A of IOL at 39 weeks 97th% overall and 100th% for head, start monitoring glucose levels fasting and 2 hour postprandial.Continue weekly NSTs. estimating to be 10 pounds so it was communicated that we may recommend a section if goes all the way to term. early induction is not always recommended as induction could result in the baby getting stuck. If natural labor happens before 40 weeks we can see how it goes. (5) Abnormal glucose tolerance test during , antepartum: Status: Acute Comment: normal 3 hr, however the fasting was elevated. - monitor at home fasting levels: 2 wk of readings WNL except 2 and states high carb snack night prior. Will continue to monitor (6) Supervision of high-risk : Status: Acute Qualifiers: Trimester: third trimester Qualified Code(s): O09.93 - Supervision of high risk , unspecified, third trimester Comment: ANTWON , LORY 09/26/24, Mc (7) Obesity affecting : Status: Acute Qualifiers: Obesity type affecting : unspecified obesity Trimester: third trimester Qualified Code(s):O99.213 - Obesity complicating , third trimester Comment: HgbA1c 5.2 , BMI 44. - weekly nsts starting at 34 weeks (8) : Status: Acute Qualifiers: Weeks of gestation: 38 weeks Qualified Code(s): Z3A.38 - 38 weeks gestation of Comment: GBS neg, NIPT low risk, nl anatomy (9) HPV in female: Status: Acute Comment: pap neg 2017 & 2023. Repeat pap 2024 @ pp visit (10) Seasonal allergies: Status: Acute Orders: Orders POC Urinalysis 2 Dip (Clinic) Today Plan Details Additional Comments: ACOG trimester education reviewed and updated. see problem list details for updated plan management information and see below for orders placed atthis visit. [place] appropriate handout given. 09/17/24 1356 s JEOVANNYM> Date _ Earline Acevedo Signature: Date (if applicable) CC: ~ [id number] [facility] [address] [place] [address], [address] [place] [address] OFFICE VISIT Date of Service: 09/10/24 MR#: [id number] Acct: [id number] Name: SAMEER CABALLERO Rep #: [id number] : 1990 Provider: Dr. 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 Is patient in pain?: No Allergies No Known Allergies Allergy (Verified 09/10/24 08:25) Medications ?Medication ?Instructions ?Recorded ?Confirmed ?Type multivit-min no.71-iron fum 28 cap PO 02/23/24 5 History mg-folate no.1 1 mg-dha 300 mg capsule (PNV-[place]) blood sugar diagnostic (Blood #120 ea 07/03/24 5 Rx Glucose Test strips) blood-glucose meter #1 07/03/24 09/10/24 Rx lancets #100 07/03/24 09/10/24 Rx Last Menstrual Period: 12/21/23 Zika: Zika virus screening: Negative : No PFSH PFSH Medical History Seasonal allergies History of frequent headaches Surgical History Bapchule teeth extracted Family History Grandmother CVA (cerebral vascular accident) Maternal Diabetes Maternal Grandfather Myocardial infarction, Onset Age: 54 Maternal Social History adopted: No household members: spouse housing: house number of children: 0 current occupational status: employed current occupation: [employer] current occupational exposures/hazards: No pets and animals: [...] physical activity do you participate in: none ganesh/jain: Buddhist seatbelt use: always do you feel safe at home: Yes additional social history: - Mc - hankins History 1 Elective abortions Hx Para 0 Spontaneous abortions Hx # Term Pregnancies Ectopic pregnancies Hx # Pregnancies Multiple births # of living children HPI 38 wk ob/nst Details: SAMEER CABALLERO is a 34 year old who presents for routine OB visit. OB Visit LORY Calculator Estimated Delivery Date Method Current WG Current Estimate 09/26/24 LMP (Certain) 37w 5d Other Estimates 09/25/24 Ultrasound #1 37w 6d Expected Delivery Route/Plan Labor Preferences- CB/BF [...] current plan of care details and appropriate ordersplaced. Relevant counseling for the gestational age provided. [...] 2 oz) 126/84 Negative -?-?-?-?-?-?-?-?-?-?-?-?- Negative 146 -?-?-?-?-?-?-?-?-?-?-?-?- MH-No VB. Nausea resolved. Anatomy US next week 05/29/24 -?-?-?-?-?-?-?-?-?-?-?-?- 22w 6d 285 lb 6 oz (+18 lb 6 oz) 120/80 Negative -?-?-?-?-?-?--?-?-?-?-?-?- Negative 155 22 -?-?-?-?-?-?-?-?-?-?-?-?- KW- no vb/ctx. s ome fm. KW- no vb/ctx. some fm. disc ussed CBE classes. glucose discussed 06/24/24 -?-?-?-?-?-?-?-?-?-?-?-?- 26w 4d 291 lb 4 oz (+24 lb 4 oz) 127/83 Negative -?-?-?-?-?-?-?-?-?-?-?-?- Negative 154 28 -?-?-?-?-?-?-?-?-?-?-?-?- JV- feels dizzy at night on her back. we discussed propping mattress. GCT and 3rd trimester labs today 07/16/24 -?-?-?-?-?-?-?-?-?-?-?-?- 29w 5d 295 lb 4 oz (+28 lb 4 oz) 120/74 Negative -?-?-?-?-?-?-?-?-?-?-?-?- Negative 152 32 -?-?-?-?-?-?-?-?-?-?-?-?- MH-No CLINTON, yoselynfJuliane G ood FM. tdap, larc. Growth US. 07/30/24 -?-?-?-?-?-?-?-?-?-?-?-?- 31w 5d 292 lb (+25 lb) 118/78 Negative -?-?-?-?-?-?-?-?-?-?-?-?- Negative 158 35 -?-?-?-?-?-?-?-?-?-?-?-?- MH-No CLINTON, YOSELYNFJuliane G ood Fm. FBS WNL except 2 in 2 weeks. Growth WNL. rpt 4 wk 08/12/24 -?-?-?-?-?--?-?-?-?-?-?-?- 33w 4d 297 lb 6 oz (+30 lb 6 oz) 130/84 Negative -?-?-?-?-?-?-?-?-?-?-?-?- Negative 140 38 0 -?-?-?-?-?-?-?-?-?-?-?-?- -4 JV- ultr asound due next week. nst reactive. trevon often but cx is closed and she is not feeling them. She did have sex recently. PTL precautions discussed. 08/19/24 -?-?-?-?-?-?-?-?-?-?-?-?- 34w 4d 298 lb 6 oz (+31 lb 6 oz) 126/77 Negative -?-?-?-?-?-?-?-?-?-?-?-?- Negative 140 0.5 -?-?-?-?-?-?-?-?-?-?-?-?- 30 -4 JV- still trevon on the monitor. Today I can almost get my finger through to the head. She feels them less. Plan for gbs next visit incase she goes into labor a little early. 08/26/24 -?-?-?-?-?-?-?-?-?-?-?-?- 35w 4d 303 lb 4 oz (+36 lb 4 oz) 127/84 Negative -?-?-?-?-?-?-?-?-?-?-?-?- Negative 140 -?-?-?-?-?-?-?-?-?-?-?-?- SM- no vb lof go od fm irregular ctx 09/02/24 -?-?-?-?-?-?-?-?-?-?-?-?- 36w 4d 300 lb 8 oz (+33 lb 8 oz) 132/87 Negative -?-?-?-?-?-?-?-?-?-?-?-?- Negative 150 0.5 -?-?-?-?-?-?-?-?-?-?-?-?- -4 JV- fast ing levels are normal, there was one 1 hr pp that was 165. plan is to repeat the growth scan at the beginning of 39 weeks. patient states that if LGA she wants a section over IOL, especially if not a favorable cervix. 09/10/24 -?-?-?-?-?-?-?-?-?-?-?-?- 37w 5d 311 lb 7 oz (+44 lb 7 oz) 139/88 Negative -?-?-?-?-?-?-?-?-?-?-?-?- Negative 140 0.5 -?-?-?-?-?-?-?-?-?-?-?-?- JV- growth scan with [facility] can not be done prior to the . will ask mfm. NST reactive. ACOG First Trimester First Trimester: Desire for [...] Symptoms of Preeclampsia, Infant Feeding No , [place] Education and Family Medical Leave or Disability Forms Office Procedures Non-stress Test Non-Stress Test Indications for Monitoring: Yes Morbid obesity Heart Rate Variability: moderate Movement: Present Decelerations: Absent Contractions: Absent Impression: Yes Reactive Non-Stress Test Results POC Urinalysis 2 Dip (Clinic) Office Urine Glucose Negative Last Edit by Damaris Easley on 09/10/24 08: 53 Office Urine Protein Negative Last Edit by Damaris Easley on 09/10/24 08: 53 Coding Level of Care Code OB Routine Diagnoses Non-stress test nonreactive O28.8 contractions O47.00 LGA (large for gestational age) fetus affecting management of mother O36.60X0 Abnormal glucose tolerance test during , antepartum O99.810 Supervision of high risk in third trimester O09.93 Trimester: third trimester Obesity affecting in third trimester, unspecified obesity type O99.213 Obesity type affecting : unspecified obesity Trimester: third trimester 37 weeks gestation of Z3A.37 Weeks of gestation: 37 weeks 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 reactive on WP. d/c home (2) contractions: Status: Acute (3) LGA (large for gestational age) fetus affecting management of mother: Status: Acute Comment: Growth US: 97%ile NST wkly at 34 wk. BS daily WNL. discussed R/B/A of IOL at 39 weeks 97th% overall and 100th% for head, start monitoring glucose levels fasting and 2 hour postprandial.Continue weekly NSTs. estimating to be 10 pounds so it was communicated that we may recommend a section if goes all the way to term. early induction is not always recommended as induction could result in the baby getting stuck. If natural labor happens before 40 weeks we can see how it goes. (4) Abnormal glucose tolerance test during , antepartum: Status: Acute Comment: normal 3 hr, however the fasting was elevated. - monitor at home fasting levels: 2 wk of readings WNL except 2 and states high carb snack night prior. Will continue to monitor (5) Supervision of high-risk : Status: Acute Qualifiers: Trimester: third trimester Qualified Code(s): O09.93 - Supervision of high risk , unspecified, third trimester Comment: PRR, , LORY 09/26/24, Mc (6) Obesity affecting : Status: Acute Qualifiers: Obesity type affecting : unspecified obesity Trimester: third trimester Qualified Code(s):O99.213 - Obesity complicating , third trimester Comment: HgbA1c 5.2 , BMI 44. - weekly nsts starting at 34 weeks (7) : Status: Acute Qualifiers: Weeks of gestation: 37 weeks Qualified Code(s): Z3A.37 - 37 weeks gestation of Comment: GBS neg, NIPT low risk, nl anatomy (8) HPV in female: Status: Acute Comment: pap neg 2017 & 2023. Repeat pap 2024 @ pp visit (9) Seasonal allergies: Status: Acute Orders: Orders POC Urinalysis 2 Dip (Clinic) Today OB NST Today O36.60X0 - Maternal care for excessive growth, unspecified trimester, not applicable or unspecified 09/10/24912 anthony Murcia DO> Date _ Rhina Sweeney DO [facility] Signature: Date (if applicable) CC: ~ [facility]07-28-2025 Progress [facility] [address] [place] [address], [address] [place] [address] OFFICE VISIT Date of Service: 09/02/24 MR#: [id number] Acct: [id number] Name: SAMEER CABALLERO Rep #: [id number] : 1990 Provider: Dr. 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 Is patient in pain?: No Allergies No Known Allergies Allergy (Verified 09/02/24 08:49) Medications ?Medication ?Instructions ?Recorded ?Confirmed ?Type multivit-min no.71-iron fum 28 cap PO 02/23/24 5 History mg-folate no.1 1 mg-dha 300 mg capsule (PNV-[place]) blood sugar diagnostic (Blood #120 ea 07/03/24 5 Rx Glucose Test strips) blood-glucose meter #1 ea 07/03/24 09/02/24 Rx lancets #100 ea 07/03/24 09/02/24 Rx Last Menstrual Period: 12/21/23 Zika: Zika virus screening: Negative : No PFSH PFSH Medical History Seasonal allergies History of frequent headaches Surgical History Bapchule teeth extracted Family History Grandmother CVA (cerebral vascular accident) Maternal Diabetes Maternal Grandfather Myocardial infarction, Onset Age: 54 Maternal Social History adopted: No household members: spouse housing: house number of children: 0 current occupational status: employed current occupation: [employer] current occupational exposures/hazards: No pets and animals: [...] physical activity do you participate in: none ganesh/jain: Buddhist seatbelt use: always do you feel safe at home: Yes additional social history: - Mc - hankins History 1 Elective abortions Hx Para 0 Spontaneous abortions Hx # Term Pregnancies Ectopic pregnancies Hx # Pregnancies Multiple births # of living children HPI 37 wk ob/nst Details: SAMEER CABALLERO is a 34 year old who presents for routine OB visit. OB Visit LORY Calculator Estimated Delivery Date Method Current WG Current Estimate 09/26/24 LMP (Certain) 36w 4d Other Estimates 09/25/24 Ultrasound #1 36w 5d Expected Delivery Route/Plan Labor Preferences- CB/BF [...] current plan of care details and appropriate ordersplaced. Relevant counseling for the gestational age provided. [...] 2 oz) 126/84 Negative -?-?-?-?-?-?-?-?-?-?-?-?- Negative 146 -?-?-?-?-?-?-?-?-?-?-?-?- MH-No VB. Nausea resolved. Anatomy US next week 05/29/24 -?-?-?-?-?-?-?-?-?-?-?-?- 22w 6d 285 lb 6 oz (+18 lb 6 oz) 120/80 Negative -?-?-?-?-?-?--?-?-?-?-?-?- Negative 155 22 -?-?-?-?-?-?-?-?-?-?-?-?- KW- no vb/ctx. s ome fm. KW- no vb/ctx. some fm. disc ussed CBE classes. glucose discussed 06/24/24 -?-?-?-?-?-?-?-?-?-?-?-?- 26w 4d 291 lb 4 oz (+24 lb 4 oz) 127/83 Negative -?-?-?-?-?-?-?-?-?-?-?-?- Negative 154 28 -?-?-?-?-?-?-?-?-?-?-?-?- JV- feels dizzy at night on her back. we discussed propping mattress. GCT and 3rd trimester labs today 07/16/24 -?-?-?-?-?-?-?-?-?-?-?-?- 29w 5d 295 lb 4 oz (+28 lb 4 oz) 120/74 Negative -?-?-?-?-?-?-?-?-?-?-?-?- Negative 152 32 -?-?-?-?-?-?-?-?-?-?-?-?- MH-No CLINTON, G ood FM. tdap, larc. Growth US. 07/30/24 -?-?-?-?-?-?-?-?-?-?-?-?- 31w 5d 292 lb (+25 lb) 118/78 Negative -?-?-?-?-?-?-?-?-?-?-?-?- Negative 158 35 -?-?-?-?-?-?-?-?-?-?-?-?- MH-No CLINTON, LOF. Valerie bullard Fm. FBS WNL except 2 in 2 weeks. Growth WNL. rpt 4 wk 08/12/24 -?-?-?-?-?--?-?-?-?-?-?-?- 33w 4d 297 lb 6 oz (+30 lb 6 oz) 130/84 Negative -?-?-?-?-?-?-?-?-?-?-?-?- Negative 140 38 0 -?-?-?-?-?-?-?-?-?-?-?-?- -4 JV- ultr asound due next week. nst reactive. trevon often but cx is closed and she is not feeling them. She did have sex recently. PTL precautions discussed. 08/19/24 -?-?-?-?-?-?-?-?-?-?-?-?- 34w 4d 298 lb 6 oz (+31 lb 6 oz) 126/77 Negative -?-?-?-?-?-?-?-?-?-?-?-?- Negative 140 0.5 -?-?-?-?-?-?-?-?-?-?-?-?- 30 -4 JV- still trevon on the monitor. Today I can almost get my finger through to the head. She feels them less. Plan for gbs next visit incase she goes into labor a little early. 08/26/24 -?-?-?-?-?-?-?-?-?-?-?-?- 35w 4d 303 lb 4 oz (+36 lb 4 oz) 127/84 Negative -?-?-?-?-?-?-?-?-?-?-?-?- Negative 140 -?-?-?-?-?-?-?-?-?-?-?-?- SM- no vb lof go od fm irregular ctx 09/02/24 -?-?-?-?-?-?-?-?-?-?-?-?- 36w 4d 300 lb 8 oz (+33 lb 8 oz) 132/87 Negative -?-?-?-?-?-?-?-?-?-?-?-?- Negative 150 0.5 -?-?-?-?-?-?-?-?-?-?-?-?- -4 JV- fast ing levels are normal, there was one 1 hr pp that was 165. plan is to repeat the growth scan at the beginning of 39 weeks. patient states that if LGA she wants a section over IOL, especially if not a favorable cervix. ACOG First Trimester First Trimester: Desire for [...] and Family Medical Leave or Disability Forms Office Procedures Non-stress Test Non-Stress Test Indications for Monitoring: Yes Morbid obesity Heart Rate Baseline: 150 Heart Rate Variability: moderate Movement: Present Heart Rate Accelerations: Present Decelerations: Absent Contractions: Absent Impression: Yes Reactive Non-Stress Test Results POC Urinalysis 2 Dip (Clinic) Office Urine Glucose Negative Last Edit by Damaris Easley on 09/02/24 09: 30 Office Urine Protein Negative Last Edit by Damaris Easley on 09/02/24 09: 30 Coding Level of Care Code OB Routine Diagnoses Non-stress test nonreactive O28.8 contractions O47.00 LGA (large for gestational age) fetus affecting management of mother O36.60X0 Abnormal glucose tolerance test during , antepartum O99.810 Supervision of high risk in third trimester O09.93 Trimester: third trimester Obesity affecting in third trimester, unspecified obesity type O99.213 Obesity type affecting : unspecified obesity Trimester: third trimester 36 weeks gestation of Z3A.36 Weeks of gestation: 36 weeks HPV in female B97.7 Seasonal allergies J30.2 CPT Codes Non-Stress Test (98716) Assessment and Plan Assessment and Plan (1) Non-stress test nonreactive: Status: Acute Comment: in office BPP 09/13. reactive on WP. d/c home (2) contractions: Status: Acute (3) LGA (large for gestational age) fetus affecting management of mother: Status: Acute Comment: Growth US: 97%ile NST wkly at 34 wk. BS daily WNL. discussed R/B/A of IOL at 39 weeks 97th% overall and 100th% for head, start monitoring glucose levels fasting and 2 hour postprandial.Continue weekly NSTs. estimating to be 10 pounds so it was communicated that we may recommend a section if goes all the way to term. early induction is not always recommended as induction could result in the baby getting stuck. If natural labor happens before 40 weeks we can see how it goes. (4) Abnormal glucose tolerance test during , antepartum: Status: Acute Comment: normal 3 hr, however the fasting was elevated. - monitor at home fasting levels: 2 wk of readings WNL except 2 and states high carb snack night prior. Will continue to monitor (5) Supervision of high-risk : Status: Acute Qualifiers: Trimester: third trimester Qualified Code(s): O09.93 - Supervision of high risk , unspecified, third trimester Comment: PRR, , LORY 09/26/24, Mc (6) Obesity affecting : Status: Acute Qualifiers: Obesity type affecting : unspecified obesity Trimester: third trimester Qualified Code(s):O99.213 - Obesity complicating , third trimester Comment: HgbA1c 5.2 , BMI 44. 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 Repeat pap 2024 @ pp visit (9) Seasonal allergies: Status: Acute Orders: Orders POC Urinalysis 2 Dip (Clinic) Today OB NST Today O36.60X0 - Maternal care for excessive growth, unspecified trimester, not applicable or unspecified OB Limited With Biometrics 3 Weeks O36.60X0 - Maternal care for excessive growth, unspecifiedtrimester, not applicable or unspecified 09/02/24 1007 e Divina DO> Date _ Rhina Sweeney DO Cosigner Signature: Date (if applicable) CC: ~ [facility]07-21-2025 Progress note [facility] Medical Records Department [address] [place] [address] OB Triage Progress Note 08/26/24 1149 MR#: [id number] Acct: [id number] Name: SAMEER CABALLERO Rep #:[id number] : 1990 34 From: Earline Andrade CNM PCP: Care Physician,No Primary Status :REG CLI Y DOS: Location: [place] [address] Progress Notes Date of Service: 08/26/24 Progress Note: Patient presents for triage evaluation secondary to non reactive NST in the office at 35 weeks FHT: 140 Moderate variability reactive no decelerations category I tracing [place]: irregular Contractions Assessment and plan: BPP 8/, Reactive NST, reassuring maternal and statuspatient discharged to home to follow-up in office at next appt. See problem list details for additional plan information. Laboratory Studies: Laboratory Tests 08/26/24 Range/Units 10:00 Urine Color Yellow (Yellow) Urine Clarity Cloudy (Clear) Urine pH 7.0 (5.0 - 8.0) Ur Specific [place] 1.015 (1.002-1.030) Urine Protein 15 H (Negative) mg/dl Urine Glucose (UA) Normal (Normal) mg/dl Urine Ketones Negative (Negative) mg/dl Urine Occult Blood Negative (Negative) /ul Urine Nitrite Negative (Negative) Urine Bilirubin Negative (Negative) mg/dL Urine Urobilinogen Normal (Normal) mg/dl Ur Leukocyte Esterase 25 H (Negative) /ul Charges/Coding Multi Select Codes Urinary/Genital Urinary/Genital CPT Codes: 81870-15 non-stress test Interp Assessment & Plan (1) Non-stress test nonreactive: COMMENT: in office BPP 8/. reactive on WP. d/c home (2) contractions: (3) LGA (large for gestational age) fetus affecting management of mother: COMMENT: Growth US: 97%ile NST wkly at 34 wk. BS daily WNL. discussed R/B/A of IOL at 39 weeks 97th% overall and 100th% for head, start monitoring glucose levels fasting and 2 hour postprandial.Continue weekly NSTs. estimating to be 10 pounds [...] pp visit (9) Seasonal allergies: 08/26/24 1151 s CNM> Date _ Earline Andrade CNM Cosigner Signature (if applicable): Date CC: MARIO Andrade; No Primary Care Physician ~ Signed [facility]07-16-2025 Radiology Diagnostic study note [facility] Imaging Services [address] [place] [address] [id number] OB Limited With Biometrics MR#: [id number] Acct: [id number] Name: SAMEER CABALLERO Rep #: [id number] : 1990 F 34 From: Armani Jalloh MD PCP: Care Physician,No Primary Status: REG CLI Study:OB Limited With Biometrics Date of Exam : 08/21/24 Exam# [id number] Ordering Dr: Shea Rodriguez MATHEMATICS LECTURER MATHEMATICS LECTURER-C PROCEDURE: OB LIMITED WITH BIOMETRICS 08/21/2024 REASON [...] with the normal expected range. Reading Location: [place] [address] CC: MATHEMATICS LECTURER-C Shea Rodriguez; No Primary Care Physician ~ Director Geophysical Laboratory: Signed [facility]06-17-2025 Radiology Diagnostic study note [facility] Imaging Services [address] [place] [address] OB Limited With Biometrics MR#: [id number] Acct: [id number] Name: SAMEER CABALLERO Rep #: [id number] : 1990 F 34 From: Armani Jalloh MD PCP: Care Physician,No Primary Status: REG CLI Study:OB Limited With Biometrics Date of Exam : 07/22/24 Exam# [id number] Ordering Dr: Shea Rodriguez NP MATHEMATICS LECTURER-Ronnie PROCEDURE: OB LIMITED WITH BIOMETRICS 07/22/2024 REASON [...] of 33 weeks and 0days. Reading Location: [place] [address] CC: NERY Rodriguez; No Primary Care Physician ~ Director Geophysical Laboratory: Signed [facility]05-19-2025 Progress [facility] [address], [address] [place] [address] OFFICE VISIT Date of Service: 06/24/24 MR#: [id number] Acct: [id number] Name: SAMEER CABALLERO Rep #: [id number] : 1990 Provider: Dr. 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 Is patient in pain?: No Allergies No Known Allergies Allergy (Verified 06/24/24 15:31) Medications ?Medication ?Instructions ?Recorded ?Confirmed ?Type multivit-min no.71-iron fum 28 cap PO 02/23/24 5 History mg-folate no.1 1 mg-dha 300 mg capsule (PNV-[place]) Last Menstrual Period: 12/21/23 Zika: Zika virus screening: Negative : No PFSH PFSH Medical History Seasonal allergies History of frequent headaches Surgical History Bapchule teeth extracted Family History Grandmother CVA (cerebral vascular accident) Maternal Diabetes Maternal Grandfather Myocardial infarction, Onset Age: 54 Maternal Social History adopted: No household members: spouse housing: house number of children: 0 current occupational status: employed current occupation: [employer] current occupational exposures/hazards: No pets and animals: [...] physical activity do you participate in: none ganesh/jain: Buddhist seatbelt use: always do you feel safe [...] current plan of care details and appropriate ordersplaced. Relevant counseling for the gestational age provided. [...] risk , unspecified, second trimester 06/24/24 1550 e Velde DO> Date _ Rhina Garland Signature: Date (if applicable) CC: ~ [facility]05-19-2025 Progress note Author Rhina Murcia [facility] Note Date/Time June 24, 2024 3:50p m [facility] [address], [address] [place] [address] OFFICE VISIT Date of Service: 06/24/24 MR#: [id number] Acct: [id number] Name: SAMEER CABALLERO Rep #: [id number] : 1990 Provider: Dr. 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 Is patient in pain?: No Allergies No Known Allergies Allergy (Verified 06/24/24 15:31) Medications ?Medication ?Instructions ?Recorded ?Confirmed ?Type multivit-min no.71-iron fum 28 cap PO 02/23/24 5 History mg-folate no.1 1 mg-dha 300 mg capsule (PNV-[place]) Last Menstrual Period: 12/21/23 Zika: Zika virus screening: Negative : No PFSH PFSH Medical History Seasonal allergies History of frequent headaches Surgical History Bapchule teeth extracted Family History Grandmother CVA (cerebral vascular accident) Maternal Diabetes Maternal Grandfather Myocardial infarction, Onset Age: 54 Maternal Social History adopted: No household members: spouse housing: house number of children: 0 current occupational status: employed current occupation: [employer] current occupational exposures/hazards: No pets and animals: [...] physical activity do you participate in: none ganesh/jain: Buddhist seatbelt use: always do you feel safe [...] Immediate [place], Signs and Symptoms of Preeclampsia, Feeding No , [place] Education and Family Medical Leave or Disability [...] Cosigner Signature: Date (if applicable) CC: ~ [facility] Work Phone: 1(345) 287-168404-23-2025 Evaluation note* Diagnosis Onset Date Resolution Status Admit Date 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 May 29, 2024 [...] Aug 8:07am 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 August 12 8:07am LGA (large for gestational a ge) [...] of high-risk acute August 26, 2024 9:37am Abnormal glucose tolerance t est during , antepartum acute Aug 8:33am 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 September 02, 2024 8:33am LGA (large for gestational a ge) fetus affecting management of mother acute September 02, 2024 8:33am Non-stress test nonreactive acute September 02, 2024 8:33am Obesity affecting acute September 02, 2024 8:33am acute September 02 8:33am contractions acute September 02, 2024 8:33am Seasonal allergies acute August 072024 8:33am Supervision of high-risk acute September 02, 2024 8:33am [facility] Work Phone: 1(922) 796-195804-23-2025 Evaluation note* Diagnosis Onset Date Resolution Status Admit Date 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 May 29, 2024 [...] of high-risk acute August 26, 2024 9:37am Abnormal glucose tolerance t est during , antepartum acute Aug 8:33am 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 September 02, 2024 8:33am LGA (large for gestational a ge) fetus affecting management of mother acute September 02, 2024 8:33am Non-stress test nonreactive acute September 02, 2024 8:33am Obesity affecting acute September 02, 2024 8:33am acute September 02 8:33am contractions acute September 02, 2024 8:33am Seasonal allergies acute August 072024 8:33am Supervision of high-risk acute September 02, 2024 8:33am Abnormal glucose tolerance t est during , antepartum acute Sep 8:15am 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 September 10, 2024 8:15am LGA (large for gestational a ge) fetus affecting management of mother acute September 10, 2024 8:15am Non-stress test nonreactive acute September 10, 2024 8:15am Obesity affecting acute September 10, 2024 8:15am acute September 10 8:15am contractions acute 2024 8:15am Seasonal allergies acute September 10, 2024 8:15am Supervision of high-risk acute September 10, 2024 8:15am [facility] Work Phone: 1(424) 133-947604-23-2025 Evaluation note* Diagnosis Onset Date Resolution Status Admit Date 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 May 29, 2024 7:20am Obesity affecting acute May 29, 2024 7:20am acute May 29 7:20am Seasonal allergies acute May 29, 2024 7:20am Supervision of high-risk acute May 29, 2024 7:20am 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 June 24, 3:30pm Obesity affecting acute June 24, 2024 [...] of high-risk acute August 26, 2024 9:37am Abnormal glucose tolerance t est during , antepartum acute Aug 8:33am 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 September 02, 2024 8:33am LGA (large for gestational a ge) fetus affecting management of mother acute September 02, 2024 8:33am Non-stress test nonreactive acute September 02, 2024 8:33am Obesity affecting acute September 02, 2024 8:33am acute September 02 8:33am contractions acute September 02, 2024 8:33am Seasonal allergies acute August 072024 8:33am Supervision of high-risk acute September 02, 2024 8:33am Abnormal glucose tolerance t est during , antepartum acute Sep 8:15am 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 September 10, 2024 8:15am LGA (large for gestational a ge) fetus affecting management of mother acute September 10, 2024 8:15am Non-stress test nonreactive acute September 10, 2024 8:15am Obesity affecting acute September 10, 2024 8:15am acute September 10 8:15am contractions acute 2024 8:15am Seasonal allergies acute September 10, 2024 8:15am Supervision of high-risk acute September 10, 2024 8:15am Abnormal glucose tolerance t est during , antepartum acute Sep 12:00pm Elevated BP without diagnosi s of hypertension acute September 13, 2024 12:00pm 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 September 13, 2024 12:00pm LGA (large for gestational a ge) fetus affecting management of mother acute September 13, 2024 12:00pm Non-stress test nonreactive acute September 13, 2024 12:00pm Obesity affecting acute September 13, 2024 12:00pm acute September 13 12:00pm contractions acute 2024 12:00pm Seasonal allergies acute September 13, 2024 12:00pm Supervision of high-risk acute September 13, 2024 12:00pm Abnormal glucose tolerance t est during , antepartum acute Sep 1:17pm Elevated BP without diagnosi s of hypertension acute September 17 1:17pm 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 September 1:17pm LGA (large for gestational a ge) fetus affecting management of mother acute September 17 1:17pm Non-stress test nonreactive acute September 17, 2024 1:17pm Obesity affecting acute September 17, 2024 1:17pm acute September 17, 025 1:17pm contractions acute Augu 2024 1:17pm Seasonal allergies acute September 17, 2024 1:17pm Supervision of high-risk acute September 17 1:17pm [facility] Work Phone: 1(640) 328-773003-27-2025 Evaluation note* Diagnosis Onset Date Resolution Status [...] of high-risk acute August 19, 2024 8:32am [facility] Work Phone: 1(983) 389-233003-27-2025 Evaluation note* Diagnosis Onset Date Resolution Status [...] 7:20am 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 June 24, 3:30pm Obesity affecting acute June 24, 2024 [...] of high-risk acute August 26, 2024 8:[address] [facility] Work Phone: 1(492) 990-264503-27-2025 Evaluation note* Diagnosis Onset Date Resolution Status [...] of high-risk acute August 26, 2024 9:37am [facility] Work Phone: 1(539) 548-951802-25-2025 Evaluation note* Diagnosis Onset Date Resolution Status Admit Date 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 April 022024 9:16am Obesity affecting acute April 02, 2024 9:16am acute April 02, 2024 9:16am Seasonal allergies acute 2024 9:16am Supervision of high-risk acute February 25th, 2 025 9:16am 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 [...] high-risk acute June 24, 2024 3 :30pm [facility] Work Phone: 1(565) 800-514402-25-2025 Evaluation note* Diagnosis Onset Date Resolution Status [...] high-risk acute July 16, 2024 3:24pm [facility] Work Phone: 1(331) 487-780702-25-2025 Evaluation note* Diagnosis Onset Date Resolution Status [...] of high-risk acute July 16, 2024 3:24pm [facility] Work Phone: 1(331) 337-424002-25-2025 Evaluation note* Diagnosis Onset Date Resolution Status [...] of high-risk acute July 30, 2024 8:19am [facility] Work Phone: 1([phone]) 452-267901-24-2025 Evaluation note* Diagnosis Onset Date Resolution Status [...] high-risk acute June 24, 2024 3 :30pm [facility] Work Phone: 1([phone]) 286-561311-18-2024 NotePap Smear Specimen AdequacyNovember 2023 6:44pmComment.Satisfactory for evaluation. Endocervical and/or squamous metaplasticcells (endocervical component)are present.LABawe.sm INTERFACED A#[id number] Riverside Methodist HospitalComment on above:Satisfactory for evaluation. Endocervical and/or squamous metaplasticcells (endocervical component)are present.12-25-2023 Evaluation note* Diagnosis Onset Date Resolution Status Admit Date Encounter for routine gynecological examination noneactive Novemb er 2023 7:33am 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 February 2:07pm Obesity affecting acute March 01, 2024 2:07pm acute March 01, 2024 2:07pm Seasonal allergies acute Janua2024 2:07pm Supervision of normal first resolved March 01 2:07pm 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 April 022024 9:16am Obesity affecting acute April 02, 2024 9:16am acute April 02, 2024 9:16am Seasonal allergies acute Februa 2024 9:16am Supervision of high-risk acute April 02, 9:16am [facility] Work Phone: Progress note Author Earline Andrade [facility] Note Date/Time August 26, 2024 11:5 1am [facility] Medical Records Department [address] [place] [address] OB Triage Progress Note 08/26/24 1149 MR#: [id number] Acct: [id number] Name: SAMEER CABALLERO Rep #:[id number] : 1990 34 From: Earline Andrade CNM PCP: Care Physician,No Primary Status :REG CLI Y DOS: Location: [place] [id number] Progress Notes Date of Service: 08/26/24 Progress Note: Patient presents for triage evaluation secondary to non reactive NST in the office at 35 weeks FHT: 140 Moderate variability reactive no decelerations category I tracing [place]: irregular Contractions Assessment and plan: BPP 09/13, Reactive NST, reassuring maternal and statuspatient discharged to home to follow-up in office at next appt. See problem list details for additional plan information. Laboratory Studies: Laboratory Tests 08/26/24 Range/Units 10:00 Urine Color Yellow (Yellow) Urine Clarity Cloudy (Clear) Urine pH 7.0 (5.0 - 8.0) Ur Specific [place] 1.015 (1.002-1.030) Urine Protein 15 H (Negative) mg/dl Urine Glucose (UA) Normal (Normal) mg/dl Urine Ketones Negative (Negative) mg/dl Urine Occult Blood Negative (Negative) /ul Urine Nitrite Negative (Negative) Urine Bilirubin Negative (Negative) mg/dL Urine Urobilinogen Normal (Normal) mg/dl Ur Leukocyte Esterase 25 H (Negative) /ul Charges/Coding Multi Select Codes Urinary/Genital Urinary/Genital CPT Codes: 89720-22 non-stress test Interp Assessment & Plan (1) [...] Andrade; No Primary Care Physician ~ Signed [facility] Work Phone: Progress note Author Rhina Murcia [facility] Note Date/Time September 02, 2024 10:0 5am [facility] [address], [address] [place] [address] OFFICE VISIT Date of Service: 09/02/24 MR#: [id number] Acct: [id number] Name: SAMEER CABALLERO Rep #: [id number] : 1990 Provider: Dr. 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 Is patient in pain?: No Allergies No Known Allergies Allergy (Verified 09/02/24 08:49) Medications ?Medication ?Instructions ?Recorded ?Confirmed ?Type multivit-min no.71-iron fum 28 cap PO 02/23/24 5 History mg-folate no.1 1 mg-dha 300 mg capsule (PNV-[place]) blood sugar diagnostic (Blood #120 ea 07/03/24 5 Rx Glucose Test strips) blood-glucose meter #1 ea 07/03/24 09/02/24 Rx lancets #100 ea 07/03/24 09/02/24 Rx Last Menstrual Period: 12/21/23 Zika: Zika virus screening: Negative : No PFSH PFSH Medical History Seasonal allergies History of frequent headaches Surgical History Bapchule teeth extracted Family History Grandmother CVA (cerebral vascular accident) Maternal Diabetes Maternal Grandfather Myocardial infarction, Onset Age: 54 Maternal Social History adopted: No household members: spouse housing: house number of children: 0 current occupational status: employed current occupation: [employer] current occupational exposures/hazards: No pets and animals: [...] physical activity do you participate in: none ganesh/jain: Buddhist seatbelt use: always do you feel safe at home: Yes additional social history: - Mc - hankins History 1 Elective abortions Hx Para 0 Spontaneous abortions Hx # Term Pregnancies Ectopic pregnancies Hx # Pregnancies Multiple births # of living children HPI 37 wk ob/nst Details: SAMEER CABALLERO is a 34 year old who presents for routine OB visit. OB Visit LORY Calculator Estimated Delivery Date Method Current WG Current Estimate 09/26/24 LMP (Certain) 36w 4d Other Estimates 09/25/24 Ultrasound #1 36w 5d Expected Delivery Route/Plan Labor Preferences- CB/BF [...] -?-?-?-?-?-?-?-?-?-?-?-?- Negative 155 -?-?-?-?-?-?-?-?-?-?-?-?- Sm- no vb crameenakshii ng labs today 05/02/24 -?-?-?-?-?-?-?-?-?-?-?-?- 19w 0d 278 lb 2 oz (+11 lb 2 oz) 126/84 Negative -?-?-?-?-?-?-?-?-?-?-?-?- Negative 146 -?-?-?-?-?-?-?-?-?-?-?-?- MH-No VB. Nausea resolved. Anatomy US next week 05/29/24 -?-?-?-?-?-?-?-?-?-?-?-?- 22w 6d 285 lb 6 oz (+18 lb 6 oz) 120/80 Negative -?-?-?-?-?-?--?-?-?-?-?-?- Negative 155 22 -?-?-?-?-?-?-?-?-?-?-?-?- KW- no vb/ctx. s ome fm. KW- no vb/ctx. some fm. disc ussed CBE classes. glucose discussed 06/24/24 -?-?-?-?-?-?-?-?-?-?-?-?- 26w 4d 291 lb 4 oz (+24 lb 4 oz) 127/83 Negative -?-?-?-?-?-?-?-?-?-?-?-?- Negative 154 28 -?-?-?-?-?-?-?-?-?-?-?-?- JV- feels dizzy at night on her back. we discussed propping mattress. GCT and 3rd trimester labs today 07/16/24 -?-?-?-?-?-?-?-?-?-?-?-?- 29w 5d 295 lb 4 oz (+28 lb 4 oz) 120/74 Negative -?-?-?-?-?-?-?-?-?-?-?-?- Negative 152 32 -?-?-?-?-?-?-?-?-?-?-?-?- MH-No VB, lof. G ood FM. tdap, larc. Growth US. 07/30/24 -?-?-?-?-?-?-?-?-?-?-?-?- 31w 5d 292 lb (+25 lb) 118/78 Negative -?-?-?-?-?-?-?-?-?-?-?-?- Negative 158 35 -?-?-?-?-?-?-?-?-?-?-?-?- MH-No VB, LOF. G ood Fm. FBS WNL except 2 in 2 weeks. Growth US WNL. rpt 4 wk 08/12/24 -?-?-?-?-?--?-?-?-?-?-?-?- 33w 4d 297 lb 6 oz (+30 lb 6 oz) 130/84 Negative -?-?-?-?-?-?-?-?-?-?-?-?- Negative 140 38 0 -?-?-?-?-?-?-?-?-?-?-?-?- -4 JV- ultr asound due next week. nst reactive. trevon often but cx is closed and she is not feeling them. She did have sex recently. PTL precautions discussed. 08/19/24 -?-?-?-?-?-?-?-?-?-?-?-?- 34w 4d 298 lb 6 oz (+31 lb 6 oz) 126/77 Negative -?-?-?-?-?-?-?-?-?-?-?-?- Negative 140 0.5 -?-?-?-?-?-?-?-?-?-?-?-?- 30 -4 JV- still trevon on the monitor. Today I can almost get my finger through to the head. She feels them less. Plan for gbs next visit incase she goes into labor a little early. 08/26/24 -?-?-?-?-?-?-?-?-?-?-?-?- 35w 4d 303 lb 4 oz (+36 lb 4 oz) 127/84 Negative -?-?-?-?-?-?-?-?-?-?-?-?- Negative 140 -?-?-?-?-?-?-?-?-?-?-?-?- SM- no vb lof go od fm irregular ctx 09/02/24 -?-?-?-?-?-?-?-?-?-?-?-?- 36w 4d 300 lb 8 oz (+33 lb 8 oz) 132/87 Negative -?-?-?-?-?-?-?-?-?-?-?-?- Negative 150 0.5 -?-?-?-?-?-?-?-?-?-?-?-?- -4 JV- fast ing levels are normal, there was one 1 hr pp that was 165. plan is to repeat the growth scan at the beginning of 39 weeks. patient states that if LGA she wants a section over IOL, especially if not a favorable cervix. ACOG First Trimester First Trimester: Desire for [...] and Family Medical Leave or Disability Forms Office Procedures Non-stress Test Non-Stress Test Indications for Monitoring: Yes Morbid obesity Heart Rate Baseline: 150 Heart Rate Variability: moderate Movement: Present Heart Rate Accelerations: Present Decelerations: Absent Contractions: Absent Impression: Yes Reactive Non-Stress Test Results POC Urinalysis 2 Dip (Clinic) Office Urine Glucose Negative Last Edit by Damaris Easley on 09/02/24 09: 30 Office Urine Protein Negative Last Edit by Damaris Easley on 09/02/24 09: 30 Coding Level of Care Code OB Routine Diagnoses Non-stress test nonreactive O28.8 contractions O47.00 LGA (large for gestational age) fetus affecting management of mother O36.60X0 Abnormal glucose tolerance test during , antepartum O99.810 Supervision of high risk in third trimester O09.93 Trimester: third trimester Obesity affecting in third trimester, unspecified obesity type O99.213 Obesity type affecting : unspecified obesity Trimester: third trimester 36 weeks gestation of Z3A.36 Weeks of gestation: 36 weeks 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 reactive on WP. d/c home (2) contractions: Status: Acute (3) LGA (large for gestational age) fetus affecting management of mother: Status: Acute Comment: Growth US: 97%ile NST wkly at 34 [...] Abnormal glucose tolerance test during , antepartum: Status: Acute Comment: normal 3 hr, however the fasting was elevated. - monitor at home fasting levels: 2 wk of readings WNL except 2 and states high carb snack night prior. Will continue to monitor (5) Supervision of high-risk : Status: Acute Qualifiers: Trimester: third trimester Qualified Code(s): O09.93 - Supervision of high risk , unspecified, third trimester Comment: PRR, , LORY 09/26/24, Mc (6) Obesity affecting : Status: Acute Qualifiers: Obesity type affecting : unspecified obesity Trimester: third trimester Qualified Code(s): O99.213 - Obesity complicating , third trimester Comment: HgbA1c 5.2 , BMI 44. 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 Repeat pap 2024 @ pp visit (9) Seasonal allergies: Status: Acute Orders: Orders POC Urinalysis 2 Dip (Clinic) Today OB NST Today O36.60X0 - Maternal care for excessive growth, unspecified trimester, not applicable or unspecified OB Limited With Biometrics 3 Weeks O36.60X0 - Maternal care for excessive growth, unspecified trimester, not applicable or unspecified 09/02/24 1007 <Electronically signed by Rhina Torres DO> Date _ Rhina Sweeney DO Cosigner Signature: Date (if applicable) CC: ~ [facility] Work Phone: Progress note Author Rhina Murcia [facility] Note Date/Time September 10, 2024 9:[address] [place] [address] [facility] [address] [place] [address], [address] [place] [address] OFFICE VISIT Date of Service: 09/10/24 MR#: [id number] Acct: [id number] Name: SAMEER CABALLERO Rep #: [id number] : 1990 Provider: Dr. 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 Is patient in pain?: No Allergies No Known Allergies Allergy (Verified 09/10/24 08:25) Medications ?Medication ?Instructions ?Recorded ?Confirmed ?Type multivit-min no.71-iron fum 28 cap PO 02/23/24 5 History mg-folate no.1 1 mg-dha 300 mg capsule (PNV-[place]) blood sugar diagnostic (Blood #120 ea 07/03/24 5 Rx Glucose Test strips) blood-glucose meter #1 kimi 07/03/24 09/10/24 Rx lancets #100 kimi 07/03/24 09/10/24 Rx Last Menstrual Period: 12/21/23 Zika: Zika virus screening: Negative : No PFSH PFSH Medical History Seasonal allergies History of frequent headaches Surgical History Bapchule teeth extracted Family History Grandmother CVA (cerebral vascular accident) Maternal Diabetes Maternal Grandfather Myocardial infarction, Onset Age: 54 Maternal Social History adopted: No household members: spouse housing: house number of children: 0 current occupational status: employed current occupation: [employer] current occupational exposures/hazards: No pets and animals: [...] physical activity do you participate in: none ganesh/jain: Buddhist seatbelt use: always do you feel safe at home: Yes additional social history: - Mc - hankins History 1 Elective abortions Hx Para 0 Spontaneous abortions Hx # Term Pregnancies Ectopic pregnancies Hx # Pregnancies Multiple births # of living children HPI 38 wk ob/nst Details: SAMEER CABALLERO is a 34 year old who presents for routine OB visit. OB Visit LORY Calculator Estimated Delivery Date Method Current WG Current Estimate 09/26/24 LMP (Certain) 37w 5d Other Estimates 09/25/24 Ultrasound #1 37w 6d Expected Delivery Route/Plan Labor Preferences- CB/BF [...] 2 oz) 126/84 Negative -?-?-?-?-?-?-?-?-?-?-?-?- Negative 146 -?-?-?-?-?-?-?-?-?-?-?-?- MH-No VB. Nausea resolved. Anatomy US next week 05/29/24 -?-?-?-?-?-?-?-?-?-?-?-?- 22w 6d 285 lb 6 oz (+18 lb 6 oz) 120/80 Negative -?-?-?-?-?-?--?-?-?-?-?-?- Negative 155 22 -?-?-?-?-?-?-?-?-?-?-?-?- KW- no vb/ctx. s ome fm. KW- no vb/ctx. some fm. disc ussed CBE classes. glucose discussed 06/24/24 -?-?-?-?-?-?-?-?-?-?-?-?- 26w 4d 291 lb 4 oz (+24 lb 4 oz) 127/83 Negative -?-?-?-?-?-?-?-?-?-?-?-?- Negative 154 28 -?-?-?-?-?-?-?-?-?-?-?-?- ISIAH- feels dizzy at night on her back. we discussed propping mattress. GCT and 3rd trimester labs today 07/16/24 -?-?-?-?-?-?-?-?-?-?-?-?- 29w 5d 295 lb 4 oz (+28 lb 4 oz) 120/74 Negative -?-?-?-?-?-?-?-?-?-?-?-?- Negative 152 32 -?-?-?-?-?-?-?-?-?-?-?-?- MH-No VB, lof. G ood FM. tdap, larc. Growth US. 07/30/24 -?-?-?-?-?-?-?-?-?-?-?-?- 31w 5d 292 lb (+25 lb) 118/78 Negative -?-?-?-?-?-?-?-?-?-?-?-?- Negative 158 35 -?-?-?-?-?-?-?-?-?-?-?-?- MH-No VB, LOF. G ood Fm. FBS WNL except 2 in 2 weeks. Growth US WNL. rpt 4 wk 08/12/24 -?-?-?-?-?--?-?-?-?-?-?-?- 33w 4d 297 lb 6 oz (+30 lb 6 oz) 130/84 Negative -?-?-?-?-?-?-?-?-?-?-?-?- Negative 140 38 0 -?-?-?-?-?-?-?-?-?-?-?-?- -4 JV- ultr asound due next week. nst reactive. trevon often but cx is closed and she is not feeling them. She did have sex recently. PTL precautions discussed. 08/19/24 -?-?-?-?-?-?-?-?-?-?-?-?- 34w 4d 298 lb 6 oz (+31 lb 6 oz) 126/77 Negative -?-?-?-?-?-?-?-?-?-?-?-?- Negative 140 0.5 -?-?-?-?-?-?-?-?-?-?-?-?- 30 -4 JV- still trevon on the monitor. Today I can almost get my finger through to the head. She feels them less. Plan for gbs next visit incase she goes into labor a little early. 08/26/24 -?-?-?-?-?-?-?-?-?-?-?-?- 35w 4d 303 lb 4 oz (+36 lb 4 oz) 127/84 Negative -?-?-?-?-?-?-?-?-?-?-?-?- Negative 140 -?-?-?-?-?-?-?-?-?-?-?-?- SM- no vb lof go od fm irregular ctx 09/02/24 -?-?-?-?-?-?-?-?-?-?-?-?- 36w 4d 300 lb 8 oz (+33 lb 8 oz) 132/87 Negative -?-?-?-?-?-?-?-?-?-?-?-?- Negative 150 0.5 -?-?-?-?-?-?-?-?-?-?-?-?- -4 JV- fast ing levels are normal, there was one 1 hr pp that was 165. plan is to repeat the growth scan at the beginning of 39 weeks. patient states that if LGA she wants a section over IOL, especially if not a favorable cervix. 09/10/24 -?-?-?-?-?-?-?-?-?-?-?-?- 37w 5d 311 lb 7 oz (+44 lb 7 oz) 139/88 Negative -?-?-?-?-?-?-?-?-?-?-?-?- Negative 140 0.5 -?-?-?-?-?-?-?-?-?-?-?-?- JV- growth scan with [facility] can not be done prior to the 18. will ask mfm. NST reactive. ACOG First Trimester First Trimester: Desire for [...] Immediate [place], Signs and Symptoms of Preeclampsia, Feeding No , [place] Education and Family Medical Leave or Disability Forms Office Procedures Non-stress Test Non-Stress Test Indications for Monitoring: Yes Morbid obesity Heart Rate Variability: moderate Movement: Present Decelerations: Absent Contractions: Absent Impression: Yes Reactive Non-Stress Test Results POC Urinalysis 2 Dip (Clinic) Office Urine Glucose Negative Last Edit by Damaris Easley on 09/10/24 08: 53 Office Urine Protein Negative Last Edit by Damaris Easley on 09/10/24 08: 53 Coding Level of Care Code OB Routine Diagnoses Non-stress test nonreactive O28.8 contractions O47.00 LGA (large for gestational age) fetus affecting management of mother O36.60X0 Abnormal glucose tolerance test during , antepartum O99.810 Supervision of high risk in third trimester O09.93 Trimester: third trimester Obesity affecting in third trimester, unspecified obesity type O99.213 Obesity type affecting : unspecified obesity Trimester: third trimester 37 weeks gestation of Z3A.37 Weeks of gestation: 37 weeks 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 reactive on WP. d/c home (2) contractions: Status: Acute (3) LGA (large for gestational age) fetus affecting management of mother: Status: Acute Comment: Growth US: 97%ile NST wkly at 34 [...] Abnormal glucose tolerance test during , antepartum: Status: Acute Comment: normal 3 hr, however the fasting was elevated. - monitor at home fasting levels: 2 wk of readings WNL except 2 and states high carb snack night prior. Will continue to monitor (5) Supervision of high-risk : Status: Acute Qualifiers: Trimester: third trimester Qualified Code(s): O09.93 - Supervision of high risk , unspecified, third trimester Comment: PRR, , LORY 09/26/24, Mc (6) Obesity affecting : Status: Acute Qualifiers: Obesity type affecting : unspecified obesity Trimester: third trimester Qualified Code(s): O99.213 - Obesity complicating , third trimester Comment: HgbA1c 5.2 , BMI 44. - weekly nsts starting at 34 weeks (7) : Status: Acute Qualifiers: Weeks of gestation: 37 weeks Qualified Code(s): Z3A.37 - 37 weeks gestation of Comment: GBS neg, NIPT low risk, nl anatomy (8) HPV in female: Status: Acute Comment: pap neg 2017 & 2023. Repeat pap 2024 @ pp visit (9) Seasonal allergies: Status: Acute Orders: Orders POC Urinalysis 2 Dip (Clinic) Today OB NST Today O36.60X0 - Maternal care for excessive growth, unspecified trimester, not applicable or unspecified 09/10/24912 <Electronically signed by Rhina Torres DO> Date _ Rhina Sweeney DO Cosigner Signature: Date (if applicable) CC: ~ 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 7:33am PAP December 25, [...] 2024 2 :07pm Supervision of normal first Robby warren 2024 2:07pm HPV in female April 02, [...] 2 :07pm Supervision of normal first [facility] 2024 2:07pm HPV in female April 02, [...] 02, 2024 9:16am Supervision of high-risk u 2024 9:16am HPV in female May 02, [...] Ju 2024 3:24pm Obesity affecting July 16, 3:24pm July 16, 2024 3:24 pm Seasonal allergies July 16, 2024 3:24 pm Supervision of high-risk July 16, 2024 3:24pm Abnormal glucose tolerance t est during , antepartum July 30, 2024 8:19am HPV in female July 30, 2024 8:19 am LGA (large for gestational age) fetus Ju 2024 8:19am Obesity affecting July 30, 025 [...] July 30, 2024 8:19am Obesity affecting July 30 025 8:19am July 30, 2024 8:19 am [...] July 30, 2024 8:19am Obesity affecting July 30 025 8:19am July 30, 2024 8:19 am [...] 2024 9:37am Non-stress test nonreactive August 26, 2 025 9:37am Obesity affecting August 26, 2 025 9:37am August 26, 2024 9:37 am contractions August 26, 2024 9:3 7am Seasonal allergies August 26, 2024 9:37 am Supervision of high-risk August 26, 2024 9:37am 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 Admit Date 23wk ob May 29, 2024 7:2 0am [...] 9:37am EXTENDED MONITORING/BPP August 26, 2024 11:49am 37 wk ob/nst September 02, 2024 8:33 am Reason for Visit Admit Date HPV in female May 29, 2024 7:2 [...] July 30, 2024 8:19am Obesity affecting July 30 025 8:19am July 30, 2024 8:19 am [...] August 26, 2024 8:38am Obesity affecting August 26, 025 8:38am August 26, 2024 8:38 am [...] August 26, 025 9:37am Obesity affecting August 26, 025 9:37am August 26, 2024 9:37 am contractions August 26, 2024 9:3 7am Seasonal allergies August 26, 2024 9:37 am Supervision of high-risk August 26, 2024 9:37am Abnormal glucose tolerance test during p regnancy, antepartum September 02, 2024 8:33am HPV in female September 02, 2024 8:33 am LGA (large for gestational a ge) fetus affecting management of mother September 02, 2024 8:33am Non-stress test nonreactive September 02, 025 8:33am Obesity affecting September 02, 025 8:33am September 02, 2024 8:33 am contractions September 02, 2024 8:3 3am Seasonal allergies September 02, 2024 8:33 am Supervision of high-risk September 02, 2024 8:33am 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 Admit Date 23wk ob May 29, 2024 7:2 0am [...] 9:37am EXTENDED MONITORING/BPP August 26, 2024 11:49am 37 wk ob/nst September 02, 2024 8:33 am 38 wk ob/nst September 10, 2024 8:1 5am Reason for Visit Admit Date HPV in female May 29, 2024 7:2 [...] July 16, 2024 3:24pm Obesity affecting July 16 025 3:24pm July 16, 2024 3:24 pm [...] LGA (large for gestational age) fetus Ju ly 2024 8:07am Abnormal glucose tolerance test during [...] August 26, 2024 8:38am Obesity affecting August 26, 025 8:38am August 26, 2024 8:38 am [...] 2024 9:37am Non-stress test nonreactive August 26, 9:37am Obesity affecting August 26, 025 9:37am August 26, 2024 9:37 am contractions August 26, 2024 9:3 7am Seasonal allergies August 26, 2024 9:37 am Supervision of high-risk August 26, 2024 9:37am Abnormal glucose tolerance test during p regnancy, antepartum September 02, 2024 8:33am HPV in female September 02, 2024 8:33 am LGA (large for gestational a ge) fetus affecting management of mother September 02, 2024 8:33am Non-stress test nonreactive September 02 8:33am Obesity affecting September 02, 025 8:33am September 02, 2024 8:33 am contractions September 02, 2024 8:3 3am Seasonal allergies September 02, 2024 8:33 am Supervision of high-risk September 02, 2024 8:33am Abnormal glucose tolerance test during p regnancy, antepartum September 10, 2024 8:15am HPV in female September 10, 2024 8:1 5am LGA (large for gestational a ge) fetus affecting management of mother September 10, 2024 8:15am Non-stress test nonreactive September 10, 2024 8:15am Obesity affecting September 10, 2024 8:15am September 10, 2024 8:1 5am contractions September 10, 2024 8: 15am Seasonal allergies September 10, 2024 8:1 5am Supervision of high-risk Augus t 2024 8:15am 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 Admit Date wk ob May 29, 2024 7:2 0am [...] 9:37am EXTENDED MONITORING/BPP August 26, 2024 11:49am 37 wk ob/nst September 02, 2024 8:33 am 38 wk ob/nst September 10, 2024 8:1 5am R/O PRE E September 13, 2024 12: 00pm 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 Admit Date wk ob May 29, 2024 7:2 0am [...] 9:37am EXTENDED MONITORING/BPP August 26, 2024 11:49am 37 wk ob/nst September 02, 2024 8:33 am 38 wk ob/nst September 10, 2024 8:1 5am R/O PRE E September 13, 2024 12: 00pm R/O PRE E September 13, 2024 4:3 1pm 39 wk ob September 17, 2024 1: 17pm Reason for Visit Admit Date HPV in female May 29, 2024 7:2 [...] August 26, 2024 8:38am Obesity affecting August 26, 025 8:38am August 26, 2024 8:38 am [...] 26, 2024 9:37am Non-stress test nonreactive August 26 9:37am Obesity affecting August 26 025 9:37am August 26, 2024 9:37 am contractions August 26, 2024 9:3 7am Seasonal allergies August 26, 2024 9:37 am Supervision of high-risk August 26, 2024 9:37am Abnormal glucose tolerance test during p regnancy, antepartum September 02, 2024 8:33am HPV in female September 02, 2024 8:33 am LGA (large for gestational a ge) fetus affecting management of mother September 02, 2024 8:33am Non-stress test nonreactive September 02, 025 8:33am Obesity affecting September 02 025 8:33am September 02, 2024 8:33 am contractions September 02, 2024 8:3 3am Seasonal allergies September 02, 2024 8:33 am Supervision of high-risk September 02, 2024 8:33am Abnormal glucose tolerance test during p regnancy, antepartum September 10, 2024 8:15am HPV in female September 10, 2024 8:1 5am LGA (large for gestational a ge) fetus affecting management of mother September 10, 2024 8:15am Non-stress test nonreactive September 10, 2024 8:15am Obesity affecting September 10, 2024 8:15am September 10, 2024 8:1 5am contractions September 10, 2024 8: 15am Seasonal allergies September 10, 2024 8:1 5am Supervision of high-risk Augus t 2024 8:15am Abnormal glucose tolerance test during p regnancy, antepartum September 13, 2024 12:00pm Elevated BP without diagnosis of hyperte nsion September 13, 2024 12:00pm HPV in female September 13, 2024 12: 00pm LGA (large for gestational a ge) fetus affecting management of mother September 13, 2024 12:00pm Non-stress test nonreactive September 13, 2024 12:00pm Obesity affecting September 13, 2024 12:00pm September 13, 2024 12: 00pm contractions September 13, 2024 12 :00pm Seasonal allergies September 13, 2024 12: 00pm Supervision of high-risk Augus t 2024 12:00pm Abnormal glucose tolerance test during p regnancy, antepartum September 17, 2024 1:17pm Elevated BP without diagnosis of hyperte nsion September 17, 2024 1:17pm HPV in female September 17, 2024 1: 17pm LGA (large for gestational a ge) fetus affecting management of mother September 17, 2024 1:17pm Non-stress test nonreactive September 17, 2024 1:17pm Obesity affecting September 17, 2024 1:17pm September 17, 2024 1: 17pm contractions September 17, 2024 1 :17pm Seasonal allergies September 17, 2024 1: 17pm Supervision of high-risk Augus t 2024 1:17pm Family History No Family History Records Found [...] End: May 02, 2024 Shea Rodriguez NP, NP-C Attending Provider Active Start: May 02, 2024 [...] June 24, 2024 Dr. Rhina Sweeney , DO Attending Provider Activ e Start: June [...] 2024 End: July 16, 2024 Shea Rodriguez NP, MATHEMATICS LECTURER-C Attending Provider Active Start: July 16, 2024 End: July 16, 2024 Team Status: Inactive Member Role Status Dates No Primary Care Physician Primary Care Provider Active Start: July 22, 2024 End: July 22, 2024 Shea Rodriguez MATHEMATICS LECTURER, MATHEMATICS LECTURER-C Attending Provider Active Start: July 22, 2024 End: July 22, 2024 Shea Rodriguez MATHEMATICS LECTURER, MATHEMATICS LECTURER-C Referring Provider Active Start: July 22, 2024 End: July 22, 2024 Team Status: Inactive Member Role Status Dates No Primary Care Physician Primary Care Provider Active Start: July 30, 2024 End: July 30, 2024 No Primary Care Physician Referring Provider Active Start: July 30, 2024 End: July 30, 2024 Shea Rodriguez MATHEMATICS LECTURER, MATHEMATICS LECTURER-C Attending Provider Active Start: July 30, 2024 [...] 2024 End: May 02, 2024 Shea Rodriguez MATHEMATICS LECTURER, MATHEMATICS LECTURER-C Attending Provider Active Start: May 02, 2024 [...] July 03, 2024 Dr. Rhina Sweeney , Referring Provider Activ e Start: July 03, 2024 End: July 03, 2024 Team Status: Inactive Member Role/Relationship Status Dates No Primary Care Physician Primary Care Provider Active Start: July 16, 2024 End: July 16, 2024 No Primary Care Physician Referring Provider Active Start: July 16, 2024 End: July 16, 2024 Shea Rodriguez MATHEMATICS LECTURER, MATHEMATICS LECTURER-C Attending Provider Active Start: July 16, 2024 End: July 16, 2024 Team Status: Inactive Member Role/Relationship Status Dates No Primary Care Physician Primary Care Provider Active Start: July 22, 2024 End: July 22, 2024 Shea Rodriguez MATHEMATICS LECTURER, MATHEMATICS LECTURER-C Attending Provider Active Start: July 22, 2024 End: July 22, 2024 Shea Rodriguez MATHEMATICS LECTURER, MATHEMATICS LECTURER-C Referring Provider Active Start: July 22, 2024 End: July 22, 2024 Team Status: Inactive Member Role/Relationship Status Dates No Primary Care Physician Primary Care Provider Active Start: July 30, 2024 End: July 30, 2024 No Primary Care Physician Referring Provider Active Start: July 30, 2024 End: July 30, 2024 Shea Rodriguez MATHEMATICS LECTURER, MATHEMATICS LECTURER-C Attending Provider Active Start: July 30, 2024 [...] Active Start: August 21, 2024 Shea Rodriguez MATHEMATICS LECTURER, MATHEMATICS LECTURER-C Attending Provider Active Start: August 21, 2024 Shea Rodriguez MATHEMATICS LECTURER, MATHEMATICS LECTURER-C Referring Provider Active Start: August 21, 2024 [...] 2024 End: August 21, 2024 Shea Rodriguez MATHEMATICS LECTURER, MATHEMATICS LECTURER-C Attending Provider Active Start: August 21, 2024 End: August 21, 2024 Shea Rodriguez MATHEMATICS LECTURER, MATHEMATICS LECTURER-C Referring Provider Active Start: August 21, 2024 End: August 21, 2024 Team Status: Inactive Member [...] June 24, 2024 Dr. Rhina Sweeney , DO Attending Provider Activ e Start: June [...] 2024 End: July 16, 2024 Shea Rodriguez MATHEMATICS LECTURER, MATHEMATICS LECTURER-C Attending Provider Active Start: July 16, 2024 End: July 16, 2024 Team Status: Inactive Member Role/Relationship Status Dates No Primary Care Physician Primary Care Provider Active Start: July 22, 2024 End: July 22, 2024 Shea Rodriguez MATHEMATICS LECTURER, MATHEMATICS LECTURER-C Attending Provider Active Start: July 22, 2024 End: July 22, 2024 Shea Rodriguez MATHEMATICS LECTURER, MATHEMATICS LECTURER-C Referring Provider Active Start: July 22, 2024 End: July 22, 2024 Team Status: Inactive Member Role/Relationship Status Dates No Primary Care Physician Primary Care Provider Active Start: July 30, 2024 End: July 30, 2024 No Primary Care Physician Referring Provider Active Start: July 30, 2024 End: July 30, 2024 Shea Rodriguez MATHEMATICS LECTURER, MATHEMATICS LECTURER-C Attending Provider Active Start: July 30, 2024 [...] 2024 End: August 19, 2024 Team Status: Inactive Member Role/Relationship Status Dates No Primary Care Physician Primary Care Provider Active Start: August 21, 2024 End: August 21, 2024 Shea Rodriguez MATHEMATICS LECTURER, MATHEMATICS LECTURER-C Attending Provider Active Start: August 21, 2024 End: August 21, 2024 Shea Rodriguez MATHEMATICS LECTURER, MATHEMATICS LECTURER-C Referring Provider Active Start: August 21, 2024 End: August 21, 2024 Team Status: Inactive Member [...] Care Physician Primary Care Provider Active Start: September 02, 2024 End: September 02, 2024 No Primary Care Physician Referring Provider Active Start: September 02, 2024 End: September 02, 2024 Dr. Rhina Sweeney DO Attending Provider Activ e Start: September 02, 2024 End: September 02, 2024 Team Status: Inactive Member Role/Relationship Status Dates No Primary Care Physician Primary Care Provider Active Start: September 10, 2024 End: September 10, 2024 No Primary Care Physician Referring Provider Active Start: September 10, 2024 End: September 10, 2024 Dr. Rhina Sweeney , Attending Provider Activ e Start: September 10, 2024 End: September 10, 2024 Team Status: Inactive Member Role/Relationship Status Dates No Primary Care Physician Primary Care Provider Active Start: September 13, 2024 End: September 13, 2024 Earline Andrade CNM Attending Provider Active S tart: September 13, 2024 End: September 13, 2024 Earline Andrade CNM Referring Provider Active S tart: September 13, 2024 End: September 13, 2024 Team Status: Active Member Role/Relationship Status Dates No Primary Care Physician Primary Care Provider Active Start: September 13, 2024 Earline Andrade CNM Attending Provider Active S tart: September 13, 2024 Earline Andrade CNM Referring Provider Active S tart: September 13, 2024 Earline Andrade CNM Other Provider Active Start : September 13, 2024 Team Status: Inactive Member Role/Relationship Status Dates No Primary Care Physician Primary Care Provider Active Start: September 17, 2024 End: September 17, 2024 No Primary Care Physician Referring Provider Active Start: September 17, 2024 End: September 17, 2024 Earline Andrade CNM Attending Provider Active S tart: September 17, 2024 End: September 17, 2024 Goals (unrecognized section and content) Goals [...] ized section and content) DATE CREATED AUTHOR 09/19/2024 [facility] DATE CREATED AUTHOR AUTHOR'S ORGANIZ ATION 09/19/2024 [facility] FOR RECORDS PERTAINING TO PATIENTS WHO [...] BE BASED ON THE PRIMARY CLINICAL RECORDS. [employer] provides no warranty or guarantee of the accuracy or completeness of information in this document.
[2024-09-20] MEDS: Lactated Ringers 1,000 ML 999 ML IV (05:07)
--- OUTSIDE RECORDS SUMMARY | 2024-09-20 05:14 | XMS RPT_ITS | CCD ---
Author Organization [facility] CliniSyut Care Team Providers Care Produce Team Member Name Role Phone Ankush CHOPRA-CLaura Attending Provider [...] No Primary Primary Care Unava ilable Jennifer BANK PRESIDENT, Shea Attending Unavailable Jennifer BANK PRESIDENT, Shea Referring Unavailable Care Physician, No Primary Primary Care Unava ilable Jennifer BANK PRESIDENT, Shea Attending Unavailable [place] BANK PRESIDENT, Shea Referring Unavailable Care Physician, No Primary Primary Care Unava ilable Care Physician, No Primary Primary Care Unava ilable Earline Andrade Attending Unavailable Earline Andrade Referring Unavailable Care Physician, No Primary Primary Care Unava ilable Rhina Sweeney Admitting UnavailRhina Montanze Attending Unavailabl e Care Physician, No Primary Referring Unava ilable Care Physician, No Primary Primary Care Unava ilable Earline Andrade Attending Unavailable Laura Lechuga Attending Unavailable Care [...] Robee Velchapo, Rhina Attending Unavailabl e Jennifer BANK PRESIDENT, Shea Attending Unavailable Care Physician, No Primary Referring Unava ilable Care Physician, No Primary Primary Care Unava ilable Care Physician, No Primary Referring Unava ilable Care Physician, No Primary Primary Care Unava ilable Rhina Sweeney Attending Unavailsonu e Jennifer BANK PRESIDENT, Shea Attending Unavailable Care Physician, No Primary Referring Unava ilable Care Physician, No Primary Primary Care Unava ilable Jennifer BANK PRESIDENT, Shea Attending Unavailable Care Physician, No Primary [...] Test fasting 3-4 times per week Mv-Mins 98-Dtvh-Najev No.1-D hearn (Pnv-[place]) 28-1-300 mg capsule (14 sources) Start: 02-23-2024 Mv-Mins 71-Iro n-Folic No.1-Dha (Pnv-[place]) 28-1-300 mg capsule Active NMA PO February [...] 08-26-2024 Episodic Comment on above: in office [facility] 09/13. r eactive on WP. [...] Test Name Value Interpretation Reference Range Facility Curriculum Supervisor Office Visit Reporton 09-17-2024 Curriculum Supervisor Office Visit Report [facility] [address], [address] [place] [address] OFFICE VISIT Date of Service: 09/17/24 MR#: [id number] Acct: [id number] Name: SAMEER CABALLERO Rep #: [id number] : 1990 Provider: MARIO Fournier ams Age/Sex: 34/F [place] [facility] [place] Status: Signed Intake Vital Signs 07/16/24 15:29 09/10/24 08:26 09/13/24 16:17 09/17/24 13:22 Height 5 ft 5 in 5 ft 5 in 5 ft 5 in 5 ft 5 in Weight: 314 lb 6 oz BMI 52.3 BP 138/98 H Intake Visit Reasons: 39 wk ob/nst 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: 39wk ob/nst Auth Specialist Required: No Is patient in pain?: No Allergies No Known Allergies Allergy (Verified 09/17/24 13:20) Medications ???Medication ???Instructions ???Recorded ???Confirmed ???Type multivit-min no.71-iron fum 28 cap PO 02/23/24 09/17/24 History mg-folate no.1 1 mg-dha 300 mg capsule (PNV-[place]) blood sugar diagnostic (Blood #120 ea 07/03/24 09/17/24 Rx Glucose Test strips) blood-glucose meter #1 ea 07/03/24 09/17/24 Rx lancets #100 ea 07/03/24 09/17/24 Rx Last Menstrual Period: 12/21/23 : No PFSH PFSH Medical History Seasonal allergies History of frequent headaches Surgical History [place] teeth extracted Family History Grandmother CVA (cerebral vascular accident) Maternal Diabetes Maternal Grandfather Myocardial infarction, Onset Age: 54 Maternal Social History adopted: No household members: spouse housing: house number of children: 0 current occupational status: employed current occupation: [email or web address] current occupational exposures/hazards: No pets and animals: Yes pets and animals: dog(s) history of recent travel: Yes ([facility] in January) out of state: [...] physical activity do you participate in: none ganesh/yazidism: Jewish seatbelt use: always do you feel safe [...] next wee (more content not included)... Normal [facility] AST(SGOT)Ordered By: Earline colorado on 09-13-2024 AST [Catalytic activity/Vol] 18 U/L Normal <=31 [facility] Comment on above: Performed By: #### L 501.1105, L501.1400, L501.0900, L100.0500, L501.4405, L501.4100 ####[facility] [address] [place], [place], [id number] Automated blood erythrocyte countOrdered By: Earline Andrade on 09-13-2024 RBC (Bld) [#/Vol] 3.96 10*6/uL Low 4.2-5.4 [facility] Comment on above: Performed By: #### L 501.1105, L501.1400, L501.0900, L100.0500, L501.4405, L501.4100 #### [facility] Laboratory [address] [place], [place], [phone] Automated blood hematocrit ( percentage)Ordered By: Earline Andrade on 09-13-2024 Hematocrit (Bld) [Volume fraction] 31.8 % Low 37-47 [facility] Comment on above: Performed By: #### L 501.1105, L501.1400, L501.0900, L100.0500, L501.4405, L501.4100 #### [facility] Laboratory [address] [place], [place], [phone] CBC-Complete Blood Cnt No Di ffon 09-13-2024 RDW SD 43.8 fl Normal 35.1-43.9 [facility] Comment on above: Performed By: #### L 501.1105, L501.1400, L501.0900, L100.0500, L501.4405, L501.4100 #### [facility] Laboratory [address] [place], [place], [phone] Erythrocyte distribution wid th ratioOrdered By: Earline Andrade on 09-13-2024 Erythrocyte distribution width (RBC) [Ratio] 15.1 % High 11.6-14.6 [facility] Comment on above: Performed By: #### L 501.1105, L501.1400, L501.0900, L100.0500, L501.4405, L501.4100 #### [facility] Laboratory [address] [facility] [place], [place], [phone] Erythrocyte distribution wid th standard deviationOrdered By: Earline Andrade on 09-13-2024 Erythrocyte distribution width (RBC) [Ratio] 43.8 fl 35.1-43.9 [facility] Glomerular filtration rate ( GFR) estimation/1.73 sq m using serum, plasma, or whole bOrdered By: Earline Andrade on 09-13-2024 GFR/1.73 sq M.predicted among non-blacks MDRD (S/P/Bld) [Vol rate/Area] 127 mL/min/{1.73_m2} Normal >60 [facility] Comment on above: mL/min/1.73m2 CKD-EP I Creatinine Equation (2020) Result Comment: mL/m in/1.73m2 CKD-EPI Creatinine Equation (2020) Performed By: #### L 501.1105, L501.1400, L501.0900, L100.0500, L501.4405, L501.4100 #### [facility] Laboratory [address] [place], [address] Hemoglobin measurementOrdere d By: Earline Andrade on 09-13-2024 Hemoglobin (Bld) [Mass/Vol] 10.3 g/dL Low 12.0-15.0 [facility] Comment on above: Performed By: #### L 501.1105, L501.1400, L501.0900, L100.0500, L501.4405, L501.4100 #### [facility] Laboratory [address] [place], [place], [phone] MCV (mean corpuscular volume ) determinationOrdered By: Earline Andrade on 09-13-2024 MCV (RBC) [Entitic vol] 80.3 fL Low 81-99 [facility] Comment on above: Performed By: #### L 501.1105, L501.1400, L501.0900, L100.0500, L501.4405, L501.4100 #### [facility] Laboratory [address] [place], [address] Mean corpuscular hemoglobin (MCH) determinationOrdered By: Earline Andrade on 09-13-2024 MCH (RBC) [Entitic mass] 26.0 pg Low 27.0-32.0 [facility] Comment on above: Performed By: #### L 501.1105, L501.1400, L501.0900, L100.0500, L501.4405, L501.4100 #### [facility] Laboratory [address] [place], [address] Mean corpuscular hemoglobin concentration (MCHC) determinationOrdered By: Earline Andrade on 09-13-2024 MCHC (RBC) [Mass/Vol] 32.4 g/dL Normal 32-36 [facility] Comment on above: Performed By: #### L 501.1105, L501.1400, L501.0900, L100.0500, L501.4405, L501.4100 #### [facility] Laboratory [address] [place], [address] Mean platelet volume determi nationOrdered By: Earline Andrade on 09-13-2024 Platelet mean volume (Bld) [Entitic vol] 10.9 fL Normal 6.2-12.0 [facility] Comment on above: Performed By: #### L 501.1105, L501.1400, L501.0900, L100.0500, L501.4405, L501.4100 #### [facility] Laboratory [address] [place], [address] OB Biophysical Prof W/O NSTo n 09-13-2024 OB Biophysical Prof W/O NST [facility] Imaging Services [address] [place] [address] OB Biophysical Prof W/O NST MR#: [id number] Acct: [id number] Name: SAMEER CABALLERO Rep #: [id number] : 1990 F 34 From: Thomas Britton MD PCP: Care Physician,No Primary Status: DEP CLI Study: OB Biophysical Prof W/O NST Date of Exam: 09/30 Exam# [id number] Ordering Dr: Earline Andrade [facility] ADDENDUM by Dr. Thomas Britton MD on 09/14/24 at 0635 Voice recognition error. This was omitted. Amniotic Fluid Volume: 2/2 Movements: 2/2 Tone: 2/2 Breathin/2 Total: 8 Position: Cephalic Reading Location: [id number] 09/14/24 0636 Date cc: MARIO Andrade; No [...] acute findings. Biophysical profile 09/13. Reading Location: [id number] CC: MARIO Andrade; No Primary Care Physician Oiler Helper: Signed Normal [facility] OB Triage Progress Noteon OB Triage Progress Note [facility] Medical Records Department [address] [place] [address] OB Triage Progress Note 09/13/24 1631 MR#: [id number] Acct: [id number] Name: SAMEER CABALLREO Rep #: [id number] : 1990 34 From: Earline Andrade CNM PCP: Care Physician,No Primary Status:DEP CLI Y DOS: Location: [facility]OUT Progress Notes Date of Service: 09/13/24 Progress Note: Patient presents for triage evaluation secondary to elevated BP at home at 38.1 weeks. FHT: 140 Moderate variability reactive no decelerations category I tracing Wrens: irregular Contractions Assessment and plan: normal pre [...] Multi Select Codes Visit Charges Office Visit/Consults: 81725 OV L3 Est 20min Urinary/Genital Urinary/Genital CPT Codes: 86759-00 non-stress test Interp Assessment Plan (1) Elevated [...] Andrade; No Primary Care Physician Signed Normal [facility] Platelet countOrdered By: Ishan Andrade on 09-13-2024 Platelets (Bld) [#/Vol] 263 10*3/uL Normal 150-450 [facility] Comment on above: Performed By: #### L 501.1105, L501.1400, L501.0900, L100.0500, L501.4405, L501.4100 #### [facility] Laboratory [facility] [place], [address] Protein+Creatinine Ratio,Uri neon 09-13-2024 PROT:CRE RATIO 200 mg/g CRE Normal 0-200 [facility] Comment on above: Performed By: #### L 501.1105, L501.1400, L501.0900, L100.0500, L501.4405, L501.4100 #### [facility] Laboratory [address] [place], [address] UR CREAT 80.80 mg/dL Normal 28.00-217.00 [facility] Comment on above: Performed By: #### L 501.1105, L501.1400, L501.0900, L100.0500, L501.4405, L501.4100 #### [facility] Laboratory [address] [place], [address] Random urine creatinine dequan urement (mass/volume)Ordered By: Earline Andrade on 09-13-2024 Creatinine Unsp time (U) [Mass/Vol] 80.80 mg/dL 28.00-217.00 [facility] Serum creatinine measurement (mass/volume)Ordered By: Earline Andrade on 09-13-2024 Creatinine [Mass/Vol] 0.51 mg/dL Low 0.70-1.20 [facility] Comment on above: Performed By: #### L 501.1105, L501.1400, L501.0900, L100.0500, L501.4405, L501.4100 #### [facility] Laboratory [address] [place], [address] Serum or plasma alanine ferris otransferase (ALT) measurementOrdered By: Earline Andrade on 09-13-2024 ALT [Catalytic activity/Vol] 8 U/L Normal <=34 [facility] Comment on above: Performed By: #### L 501.1105, L501.1400, L501.0900, L100.0500, L501.4405, L501.4100 ####[facility] [address] [place], [address] Serum or plasma uric acid me asurement (mass/volume)Ordered By: Earline Andrade on 09-13-2024 Urate [Mass/Vol] 3.5 mg/dL 2.6-6.0 [facility] Comment on above: The drugs N-Acetylcy steine and Metamizole may falsely depress this assay. Uric Acidon 09-13-2024 URIC 3.5 mg/dL Normal 2.6-6.0 [facility] Comment on above: Result Comment: The drugs N-Acetylcysteine and Metamizole may falsely depress this assay. Performed By: #### L 501.1105, L501.1400, L501.0900, L100.0500, L501.4405, L501.4100 #### [facility] Laboratory [address] [facility] [place], [place], [phone] Urine protein measurement (m ass/volume)Ordered By: Earline Andrade on 09-13-2024 Protein (U) [Mass/Vol] 16.2 mg/dL High 0.0-12.0 [facility] Comment on above: Performed By: #### L 501.1105, L501.1400, L501.0900, L100.0500, L501.4405, L501.4100 #### [facility] Laboratory [address] [facility] [place], [place], [phone] Urine protein/creatinine mas s ratioOrdered By: Earline Andrade on 09-13-2024 Protein/Creatinine (U) [Mass ratio] 200 mg/g CRE 0-200 [facility] White blood cell (WBC) count Ordered By: Earline Andrade on 09-13-2024 WBC (Bld) [#/Vol] 9.3 10*3/uL Normal 4.4-11.0 [facility] Comment on above: Performed By: #### L 501.1105, L501.1400, L501.0900, L100.0500, L501.4405, L501.4100 #### [facility] Laboratory [address] [facility] [place], [place], [id number] Laboratory - Chemistry and C hemistry - challengeOrdered By: Rhina Murcia on 09-10-2024 Glucose Ql (U) Negative [facility] Laboratory - UrinalysisOrder ed By: Rhnia Murcia on 09-10-2024 Protein Ql (U) Negative [facility] Curriculum Supervisor Office Visit Reporton 09-10-2024 Curriculum Supervisor Office Visit Report [facility] [address], [address] [place] [address] OFFICE VISIT Date of Service: 09/10/24 MR#: [id number] Acct: [id number] Name: SAMEER CABALLERO Rep #: [id number] : 1990 Provider: Dr. Rhina Santos DO Age/Sex: 34/F Location[place] [facility] [place] Status: Signed Intake Vital Signs 07/16/24 15:29 09/02/24 08:49 09/10/24 08:25 09/10/24 08:26 Height 5 ft 5 in 5 ft 5 in 5 ft 5 in 5 ft 5 in Weight: 311 lb 7 oz BMI 51.8 BP 139/88 H Intake Visit Reasons: 38 wk ob/nst Auth Specialist Required: No Is patient in pain?: No Allergies No Known Allergies Allergy (Verified 09/10/24 08:25) Medications ???Medication ???Instructions ???Recorded ???Confirmed ???Type multivit-min no.71-iron fum 28 cap PO 02/23/24 09/10/24 History mg-folate no.1 1 mg-dha 300 mg capsule (PNV-[place]) blood sugar diagnostic (Blood #120 ea 07/03/24 09/10/24 Rx Glucose Test strips) blood-glucose meter #1 ea 07/03/24 09/10/24 Rx lancets #100 ea 07/03/24 09/10/24 Rx Last Menstrual Period: 12/21/23 Zika: Zika virus screening: Negative : No PFSH PFSH Medical History Seasonal allergies History of frequent headaches Surgical History [place] teeth extracted Family History Grandmother CVA (cerebral vascular accident) Maternal Diabetes Maternal Grandfather Myocardial infarction, Onset Age: 54 Maternal Social History adopted: No household members: spouse housing: house number of children: 0 current occupational status: employed current occupation: [email or web address] current occupational exposures/hazards: No pets and animals: [...] physical activity do you participate in: none ganesh/yazidism: Jewish seatbelt use: always do you feel safe [...] VB. N (more content not included)... Normal [facility] Laboratory - Chemistry and C hemistry - challengeOrdered By: Rhina Murcia on 09-02-2024 Glucose Ql (U) Negative [facility] Laboratory - UrinalysisOrder ed By: Rhina Murcia on 09-02-2024 Protein Ql (U) Negative [facility] Curriculum Supervisor Office Visit Reporton 09-02-2024 Curriculum Supervisor Office Visit Report [facility] [address], [address] [place] [address] OFFICE VISIT Date of Service: 09/02/24 MR#: [id number] Acct: [id number] Name: SAMEER CABALLERO Rep #: [id number] : 1990 Provider: Dr. Rhina Santos, Age/Sex: 34/F Location[place] [facility] [place] Status: Signed Intake Vital Signs 07/16/24 15:29 08/26/24 09:49 09/02/24 08:49 09/02/24 08:49 Height 5 ft 5 in 5 ft 5 in 5 ft 5 in 5 ft 5 in Weight: 300 lb 8 oz BMI 50.0 BP 132/87 H Intake Visit Reasons: 37 wk ob/nst Auth Specialist Required: No Is patient in pain?: No Allergies No Known Allergies Allergy (Verified 09/02/24 08:49) Medications ???Medication ???Instructions ???Recorded ???Confirmed ???Type multivit-min no.71-iron fum 28 cap PO 02/23/24 09/02/24 History mg-folate no.1 1 mg-dha 300 mg capsule (PNV-[place]) blood sugar diagnostic (Blood #120 ea 07/03/24 09/02/24 Rx Glucose Test strips) blood-glucose meter #1 ea 07/03/24 09/02/24 Rx lancets #100 ea 07/03/24 09/02/24 Rx Last Menstrual Period: 12/21/23 Zika: Zika virus screening: Negative : No PFSH PFSH Medical History Seasonal allergies History of frequent headaches Surgical History [place] teeth extracted Family History Grandmother CVA (cerebral vascular accident) Maternal Diabetes Maternal Grandfather Myocardial infarction, Onset Age: 54 Maternal Social History adopted: No household members: spouse housing: house number of children: 0 current occupational status: employed current occupation: [email or web address] current occupational exposures/hazards: No pets and animals: Yes pets and animals: dog(s) history of recent travel: [place]) out of state: Yes [...] physical activity do you participate in: none ganesh/yazidism: Jewish seatbelt use: always do you feel safe [...] VB. N (more content not included)... Normal [facility] Rule out Beta Strep (Grp. B) on 08-29-2024 RAMANDEEP Group B Beta Streptococcus is not isolated. Normal [facility] Comment on above: Performed By: #### M 8200.0100 #### [facility] Laboratory [place], [address] Urine Cultureon 08-27-2024 URC Mixed Gram Positive Organisms [place] Count 11,000-25,000 MIXC Mixed contaminants. Submit a new specimen if indicated. Normal [facility] Comment on above: Performed By: #### M 100.2200 #### [facility] Laboratory [address] [place], [address] Bilirubin Test strip Ql (U)O rdered By: Earline Andrade on 08-26-2024 Bilirubin Ql (U) Negative Negative [facility] Ketones Test strip Ql (U)Ord ered By: Earline Andrade on 08-26-2024 Ketones Ql (U) Negative Negative [facility] Laboratory - Chemistry and C hemistry - challengeOrdered By: Maris Aragon on 08-26-2024 Glucose Ql (U) Negative [facility] Laboratory - UrinalysisOrder ed By: Maris Aragon on 08-26-2024 Protein Ql (U) Negative [facility] M8200.0100on 08-26-2024 M8200.0100 Negative Normal [facility] Comment on above: Performed By: #### M 8200.0100 #### [facility] Laboratory [address] [place], [address] OB Biophysical Prof W/O NSTo n 08-26-2024 OB Biophysical Prof W/O NST [facility] Imaging Services [address] [place], [place] [address] OB Biophysical Prof W/O NST MR#: [id number] Acct: [id number] Name: SAMEER CABALLERO Rep #: [id number] : 1990 F 34 From: Shai Samyaoa MD PCP: Care Physician,No Primary Status: DEP CLI Study: OB Biophysical Prof W/O NST Date of Exam: 08/07 03/02 Exam# [id number] Ordering Dr: Earline Andrade CNM EXAM: US Biophysical Profile Without Non-Stress Testing CLINICAL INDICATION: NON-REACTIVE NST TECHNIQUE: Real-time ultrasound of the maternal pelvis for biophysical profile evaluation with image documentation. COMPARISON: No relevant prior studies available. FINDINGS: BREATHING MOVEMENTS: Present. Score 2/2. GROSS BODY MOVEMENTS: Present. Score 2/2. TONE: Present. Score 2/2. QUALITATIVE AMNIOTIC FLUID VOLUME: VEI 15.7 cm. Largest fluid is 4.96 cm. FETUS: age 37 weeks and 4 days. HEART RATE: heart rate 150 beats per minute. PRESENTATION: Cephalic presentation. PLACENTA: Posterior placenta. OTHER FINDINGS: LORY 09/26/2024. US/OB Biophysical Prof W/O NST IMPRESSION: No acute findings. Normal biophysical profile with score of 8/8. Reading Location: [facility] CC: MARIO Andrade; No Primary Care Physician Oiler Helper: Signed Normal [facility] OB Triage Progress Noteon OB Triage Progress Note [facility] Medical Records Department [address] [place] [address] OB Triage Progress Note 08/26/24 1149 MR#: [id number] Acct: [id number] Name: SAMEER CABALLERO Rep #: [id number] : 1990 34 From: Earline Andrade CNM PCP: Care Physician,No Primary Status:REG CLI Y DOS: [facility] Progress Notes Date of Service: 08/26/24 Progress Note: Patient presents for triage evaluation secondary to non reactive NST in the office at 35 weeks FHT: 140 Moderate variability reactive no decelerations category I tracing Wrens: irregular Contractions Assessment and plan: BPP 8/8, Reactive NST, reassuring maternal and status patient discharged to home to follow-up in office at next appt. See problem list details for additional plan information. Laboratory Studies: Laboratory Tests 08/26/24 Range/Units 10:00 Urine Color Yellow (Yellow) Urine Clarity Cloudy (Clear) Urine pH 7.0 (5.0 - 8.0) Ur Specific [place] 1.015 (1.002-1.030) Urine Protein 15 H (Negative) mg/dl Urine Glucose (UA) Normal (Normal) mg/dl Urine Ketones Negative (Negative) mg/dl Urine Occult Blood Negative (Negative) /ul Urine Nitrite Negative (Negative) Urine Bilirubin Negative (Negative) mg/dL Urine Urobilinogen Normal (Normal) mg/dl Ur Leukocyte Esterase 25 H (Negative) /ul Charges/Coding Multi Select Codes Urinary/Genital Urinary/Genital CPT Codes: 43698-78 non-stress test Interp Assessment Plan (1) Non-stress [...] Andrade; No Primary Care Physician Signed Normal [facility] Curriculum Supervisor Office Visit Reporton 08-26-2024 Curriculum Supervisor Office Visit Report [facility] Emergency Department [address], [address] [place] [address] OFFICE VISIT Date of Service: 08/26/24 MR#: [id number] Acct: [id number] Name: SAMEER CABALLERO Rep #: [id number] : 1990 Provider: Dr. Maris yang MD Age/Sex: 34/F Location: [facility] [place] Status: Signed Intake Vital Signs 07/16/24 15:29 08/19/24 08:37 08/26/24 08:40 Height 5 ft 5 in 5 ft 5 in 5 ft 5 in Weight: 303 lb 4 oz BMI 50.4 BP 127/84 H Intake Visit Reasons: 36 wk ob/nst Auth Specialist Required: No Is patient in pain?: No Allergies No Known Allergies Allergy (Verified 08/26/24 08:41) Medications ???Medication ???Instructions ???Recorded ???Confirmed ???Type multivit-min no.71-iron fum 28 cap PO 02/23/24 08/26/24 History mg-folate no.1 1 mg-dha 300 mg capsule (PNV-[place]) blood sugar diagnostic (Blood #120 ea 07/03/24 08/26/24 Rx Glucose Test strips) blood-glucose meter #1 ea 07/03/24 08/26/24 Rx lancets #100 ea 07/03/24 08/26/24 Rx Last Menstrual Period: 12/21/23 Zika: Zika virus screening: Negative : No PFSH PFSH Medical History Seasonal allergies History of frequent headaches Surgical History [place] teeth extracted Family History Grandmother CVA (cerebral vascular accident) Maternal Diabetes Maternal Grandfather Myocardial infarction, Onset Age: 56 Maternal Social History adopted: No household members: spouse housing: house number of children: 0 current occupational status: employed current occupation: [email or web address] current occupational exposures/hazards: No pets and animals: [...] physical activity do you participate in: none ganesh/yazidism: Jewish seatbelt use: always do you feel safe [...] next we (more content not included)... Normal [facility] Protein Test strip Ql (U)Ord ered By: Earline Andrade on 08-26-2024 Protein Ql (U) 15 mg/dl High Negative [facility] Screening beta-hemolytic Str eptococcus cultureOrdered By: Earline Andrade on 08-26-2024 Beta-hemolytic Streptococcus culture Group B Beta Streptococcus is not isolated. [facility] Urinalysis, Routine (Dipstic k)on 08-26-2024 BILIRUBIN URINE Negative Normal Negative [facility] Comment on above: Order Comment: LEWIS CTOR TO SPECIFY Performed By: #### M 100.2200, L7000.1800 #### [facility] Laboratory [address] [place], [address] GLUCOSE, UR Normal Normal Normal [facility] Comment on above: Order Comment: LEWIS CTOR TO SPECIFY Performed By: #### M 100.2200, L7000.1800 #### [facility] Laboratory [address] [place], [address] KETONE UR Negative Normal Negative [facility] Comment on above: Order Comment: LEWIS CTOR TO SPECIFY Performed By: #### M 100.2200, L7000.1800 #### [facility] Laboratory [address] [place], [address] LEUK ESTERASE 25 /ul Abnormal Negative [facility] Comment on above: Order Comment: LEWIS CTOR TO SPECIFY Performed By: #### M 100.2200, L7000.1800 #### [facility] Laboratory [address] [place], [address] OCCULT BLOOD-UR Negative Normal Negative [facility] Comment on above: Order Comment: LEWIS CTOR TO SPECIFY Performed By: #### M 100.2200, L7000.1800 #### [facility] Laboratory [address] [place], [address] pH UR 7.0 Normal 5.0 - 8.0 [facility] Comment on above: Order Comment: LEWIS CTOR TO SPECIFY Performed By: #### M 100.2200, L7000.1800 #### [facility] Laboratory [address] [place], [address] PROT DIPSTX 15 mg/dl Abnormal Negative [facility] Comment on above: Order Comment: LEWIS CTOR TO SPECIFY Performed By: #### M 100.2200, L7000.1800 #### [facility] Laboratory [address] [place], [address] SP.GR. DIPSTX 1.015 Normal 1.002-1.030 [facility] Comment on above: Order Comment: LEWIS CTOR TO SPECIFY Performed By: #### M 100.2200, L7000.1800 #### [facility] Laboratory [address] [place], [address] UROBILI Normal Normal Normal [facility] Comment on above: Order Comment: LEWIS CTOR TO SPECIFY Performed By: #### M 100.2200, L7000.1800 #### [facility] Laboratory [address] [place], [address] Urine clarityOrdered By: Riccardo Andrade on 08-26-2024 Clarity (U) Cloudy Normal Clear [facility] Comment on above: Order Comment: LEWIS CTOR TO SPECIFY Performed By: #### M 100.2200, L7000.1800 #### [facility] Laboratory [address] [place], [place], [id number] Urine color determinationOrd ered By: Earline Andrade on 08-26-2024 Color (U) Yellow Normal Yellow [facility] Comment on above: Order Comment: LEWIS CTOR TO SPECIFY Performed By: #### M 100.2200, L7000.1800 #### [facility] Laboratory [address] [place], [place], [id number] Urine cultureOrdered By: Riccardo Andrade on 08-26-2024 Bacteria identified Cx Nom (U) Positive Abnormal [facility] Urine glucose detectionOrder ed By: Earline Andrade on 08-26-2024 Glucose Ql (U) Normal mg/dl Normal [facility] Urine leukocyte esterase det ection by dipstickOrdered By: Earline Andrade on 08-26-2024 Leukocyte esterase Test strip Ql (U) 25 /ul High Negative [facility] Urine nitrite test by dipsti ckOrdered By: Earline Andrade on 08-26-2024 Nitrite Ql (U) Negative Normal Negative [facility] Comment on above: Order Comment: LEWIS CTOR TO SPECIFY Performed By: #### M 100.2200, L7000.1800 #### [facility] Laboratory [address] [place], [place], [id number] Urine pHOrdered By: Earline mirza on 08-26-2024 pH (U) 7.0 [pH] 5.0 - 8.0 [facility] Urine specific gravity measu rementOrdered By: Earline Andrade on 08-26-2024 Specific gravity (U) [Rel density] 1.015 1.002-1.030 [facility] Urine urobilinogen measureme ntOrdered By: Earline Andrade on 08-26-2024 Urobilinogen Ql (U) Normal mg/dl Normal [facility] OB Limited With Biometricson 08-21-2024 OB Limited With Biometrics [facility] Imaging Services [address] [place], [place] [address] OB Limited With Biometrics MR#: [id number] Acct: [id number] Name: SAMEER CABALLERO Rep #: [id number] : 1990 F 34 From: Kale moyer MD PCP: Care Physician,No Primary Status: REG CL Study: OB Limited With Biometrics Date of Exam: 08/21 Exam# [id number] Ordering Dr: Shea Rodriguez NP, NP -Ronnie [...] with the normal expected range. Reading Location: [place] [address] CC: BANK PRESIDENT-Ronnie Rodriguez; No Primary Care Physician Oiler Helper: Signed Normal [facility] Laboratory - Chemistry and C hemistry - challengeOrdered By: Rhina Murcia on 08-19-2024 Glucose Ql (U) Negative [facility] Laboratory - UrinalysisOrder ed By: Rhina Murcia on 08-19-2024 Protein Ql (U) Negative [facility] Curriculum Supervisor Office Visit Reporton 08-19-2024 Curriculum Supervisor Office Visit Report [facility]'s [address], [address] [place] [address] OFFICE VISIT Date of Service: 08/19/24 MR#: [id number] Acct: [id number] Name: SAMEER CABALLERO Rep #: [id number] : 1990 Provider: Dr. Rhina Santos DO Age/Sex: 34/F [place] [facility] [place]: Signed Intake Vital Signs 07/16/24 15:29 08/12/24 08:12 08/19/24 08:37 08/19/24 08:37 Height 5 ft 5 in 5 ft 5 in 5 ft 5 in 5 ft 5 in Weight: 298 lb 6 oz BMI 49.6 BP 126/77 H Intake Visit Reasons: 35 wk ob/nst 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: 35wk Ob/nst Auth Specialist Required: No Is patient in pain?: No Allergies No Known Allergies Allergy (Verified 08/19/24 08:35) Medications ???Medication ???Instructions ???Recorded ???Confirmed ???Type multivit-min no.71-iron fum 28 cap PO 02/23/24 08/19/24 History mg-folate no.1 1 mg-dha 300 mg capsule (PNV-[place]) blood sugar diagnostic (Blood #120 ea 07/03/24 08/19/24 Rx Glucose Test strips) blood-glucose meter #1 ea 07/03/24 08/19/24 Rx lancets #100 ea 07/03/24 08/19/24 Rx Last Menstrual Period: 12/21/23 : No Have you fallen in the past year?: No PFSH PFSH Medical History Seasonal allergies History of frequent headaches Surgical History [place] teeth extracted Family History Grandmother CVA (cerebral vascular accident) Maternal Diabetes Maternal Grandfather Myocardial infarction, Onset Age: 54 Maternal Social History adopted: No household members: spouse housing: house number of children: 0 current occupational status: employed current occupation: [email or web address] current occupational exposures/hazards: No pets and animals: [...] physical activity do you participate in: none ganesh/yazidism: Jewish seatbelt use: always do you feel safe [...] ???-???-???-???-???-? ??-???- (more content not included)... Normal [facility] Laboratory - Chemistry and C hemistry - challengeOrdered By: Rhina Murcia on 08-12-2024 Glucose Ql (U) Negative [facility] Laboratory - UrinalysisOrder ed By: Rhina Murcia on 08-12-2024 Protein Ql (U) Negative [facility] Curriculum Supervisor Office Visit Reporton 08-12-2024 Curriculum Supervisor Office Visit Report [facility]'s [address], [address] [place] [address] OFFICE VISIT Date of Service: 08/12/24 MR#: [id number] Acct: [id number] Name: SAMEER CABALLERO Rep #: [id number] : 1990 Provider: Dr. Rhina Santos DO Age/Sex: 34/F Location: [facility] [place] Status: Signed Intake Vital Signs 07/16/24 15:29 07/30/24 08:28 08/12/24 08:11 08/12/24 08:12 Height 5 ft 5 in 5 ft 5 in 5 ft 5 in 5 ft 5 in Weight: 297 lb 6 oz BMI 49.4 BP 130/84 H Intake Visit Reasons: 34 wk ob/NST Auth Specialist Required: No Is patient in pain?: No Allergies No Known Allergies Allergy (Verified 08/12/24 08:11) Medications ???Medication ???Instructions ???Recorded ???Confirmed ???Type multivit-min no.71-iron fum 28 cap PO 02/23/24 08/12/24 History mg-folate no.1 1 mg-dha 300 mg capsule (PNV-[place]) blood sugar diagnostic (Blood #120 ea 07/03/24 08/12/24 Rx Glucose Test strips) blood-glucose meter #1 07/03/24 08/12/24 Rx lancets #100 07/03/24 08/12/24 Rx Last Menstrual Period: 12/21/23 Zika: Zika virus screening: Negative : No PFSH PFSH Medical History Seasonal allergies History of frequent headaches Surgical History [place] teeth extracted Family History Grandmother CVA (cerebral vascular accident) Maternal Diabetes Maternal Grandfather Myocardial infarction, Onset Age: 54 Maternal Social History adopted: No household members: spouse housing: house number of children: 0 current occupational status: employed current occupation: [email or web address] current occupational exposures/hazards: No pets and animals: Yes pets and animals: dog(s) history of recent travel: Yes ([facility] in January) out of state: Yes out [...] physical activity do you participate in: none ganesh/yazidism: Jewish seatbelt use: always do you feel safe [...] VB. N (more content not included)... Normal [facility] Laboratory - Chemistry and C hemistry - challengeOrdered By: Shea Rodriguez on 07-30-2024 Glucose Ql (U) Negative [facility] Laboratory - UrinalysisOrder ed By: Shea Rodriguez on 07-30-2024 Protein Ql (U) Negative [facility] Curriculum Supervisor Office Visit Reporton 07-30-2024 Curriculum Supervisor Office Visit Report [facility]'s [address], [address] [place] [address] OFFICE VISIT Date of Service: 07/30/24 MR#: [id number] Acct: [id number] Name: SAMEER CABALLERO Rep #: [id number] : 1990 Provider: NERY hsieh Age/Sex: 34/F Location: [facility] [place] Status: Signed Intake Vital Signs 06/24/24 15:33 07/16/24 15:29 07/30/24 08:22 07/30/24 08:28 Height 5 ft 5 in 5 ft 5 in 5 ft 5 in 5 ft 5 in Weight: 292 lb BMI 48.6 BP 118/78 Intake Visit Reasons: 32wk ob 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: 32 Week OB Auth Specialist Required: No Is patient in pain?: No Allergies No Known Allergies Allergy (Verified 07/30/24 08:22) Medications ???Medication ???Instructions ???Recorded ???Confirmed ???Type multivit-min no.71-iron fum 28 cap PO 02/23/24 07/30/24 History mg-folate no.1 1 mg-dha 300 mg capsule (PNV-[place]) blood sugar diagnostic (Blood #120 ea 07/03/24 07/30/24 Rx Glucose Test strips) blood-glucose meter #1 ea 07/03/24 07/30/24 Rx lancets #100 ea 07/03/24 07/30/24 Rx Last Menstrual Period: 12/21/23 Zika: Zika virus screening: Negative : No PFSH PFSH Medical History Seasonal allergies History of frequent headaches Surgical History [place] teeth extracted Family History Grandmother CVA (cerebral vascular accident) Maternal Diabetes Maternal Grandfather Myocardial infarction, Onset Age: 54 Maternal Social History adopted: No household members: spouse housing: house number of children: 0 current occupational status: employed current occupation: [email or web address] current occupational exposures/hazards: No pets and animals: [...] physical activity do you participate in: none ganesh/yazidism: Jewish seatbelt use: always do you feel safe [...] ??-???- MH- (more content not included)... Normal [facility] OB Limited With Biometricson 07-22-2024 OB Limited With Biometrics [facility] Imaging Services [address] [place] [address] OB Limited With Biometrics MR#: [id number] Acct: [id number] Name: SAMEER CABALLERO Rep #: [id number] : 1990 F 34 From: Kale moyer MD PCP: Care Physician,No Primary Status: REG CLI Study: OB Limited With Biometrics Date of Exam: 07/22 Exam# [id number] Ordering Dr: Shea Rodriguez NP BANK PRESIDENT -C PROCEDURE: OB LIMITED WITH BIOMETRICS 07/22/2024 [...] 33 weeks and 0 days. Reading Location: [facility] CC: NERY Rodriguez; No Primary Care Physician Oiler Helper: Signed Normal [facility] Laboratory - Chemistry and C hemistry - challengeOrdered By: Shea Rodriguez on 07-16-2024 Glucose Ql (U) Negative [facility] Laboratory - UrinalysisOrder ed By: Shea Rodriguez on 07-16-2024 Protein Ql (U) Negative [facility] Curriculum Supervisor Office Visit Reporton 07-16-2024 Curriculum Supervisor Office Visit Report [facility]'s [address], [address] [place] [address] OFFICE VISIT Date of Service: 07/16/24 MR#: [id number] Acct: [id number] Name: SAMEER CABALLERO Rep #: [id number] : 1990 Provider: NERY hsieh Age/Sex: 34/F Location: [facility] [place] Status: Signed Intake Vital Signs 05/02/24 08:39 06/24/24 15:33 07/16/24 15:29 Height 5 ft 5 in 5 ft 5 in 5 ft 5 in Weight: 295 lb 4 oz BMI 49.1 BP 120/74 Intake Visit Reasons: 30wk ob 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: 30 Week OB Auth Specialist Required: No Is patient in pain?: No Allergies No Known Allergies Allergy (Verified 07/16/24 15:29) Medications ???Medication ???Instructions ???Recorded ???Confirmed ???Type multivit-min no.71-iron fum 28 cap PO 02/23/24 07/16/24 History mg-folate no.1 1 mg-dha 300 mg capsule (PNV-[place]) blood sugar diagnostic (Blood #120 ea 07/03/24 07/16/24 Rx Glucose Test strips) blood-glucose meter #1 ea 07/03/24 07/16/24 Rx lancets #100 ea 07/03/24 07/16/24 Rx Last Menstrual Period: 12/21/23 Zika: Zika virus screening: Negative : No PFSH PFSH Medical History Seasonal allergies History of frequent headaches Surgical History [place] teeth extracted Family History Grandmother CVA (cerebral vascular accident) Maternal Diabetes Maternal Grandfather Myocardial infarction, Onset Age: 54 Maternal Social History adopted: No household members: spouse housing: house number of children: 0 current occupational status: employed current occupation: [email or web address] current occupational exposures/hazards: No pets and animals: Yes pets and animals: dog(s) history of recent travel: Yes ([place] in January) out of state: Yes [...] physical activity do you participate in: none ganesh/yazidism: Jewish seatbelt use: always do you feel safe [...] usea resol (more content not included)... Normal [facility] Gestational GTT 3HR 100gon 0 07-03-2024 GEST GTT 100gm Normal [facility] Comment on above: Order Comment: [...] 1014 Performed By: #### M 8200.0100 #### [facility] Laboratory [facility] [place], [address] Quantitative serum or plasma 3 hour gestational glucose tolerance panelOrdered By: Rhina Murcia on 07-03-2024 Glucose tolerance 3 hours gestational panel See comment [facility] Comment on above: FASTING 96 Col: 06/07 [...] Auto (Unsp spec) [#/Vol] 1.97 10*3/uL 0.83-4.51 [facility] Absolute neutrophil countOrd ered By: Rhina Murcia on 06-24-2024 Neutrophils (Bld) [#/Vol] 7.8 10*3/uL High 2.0-7.7 [facility] Automated lymphocyte count a s percentage of total leukocytesOrdered By: Rhina Murcia on 06-24-2024 Lymphocytes/100 WBC Auto (Unsp spec) 18.8 % Low 19-41 [facility] Basophil percentageOrdered B y: Rhina Murcia on 06-24-2024 Basophils/100 WBC (Bld) 0.2 % 0-1 [facility] CBC W/Diff, Automatedon 06-06 Absolute Lymph 1.97 X10 3/uL Normal 0.83-4.51 [facility] Comment on above: Performed By: #### L 3890.6006, L509.8002, L100.0100, L501.0250 ####[facility] [address] [place], [address] Absolute Neut 7.8 X10 3/uL High 2.0-7.7 [facility] Comment on above: Performed By: #### L 3890.6006, L509.8002, L100.0100, L501.0250 ####[facility] [address] [place], [address] Basophils/100 WBC (Bld) 0.2 % Normal 0-1 [facility] Comment on above: Performed By: #### L 3890.6006, L509.8002, L100.0100, L501.0250 ####[facility] [address] [place], [address] Eosinophils/100 WBC (Bld) 1.0 % Normal 0-5 [facility] Comment on above: Performed By: #### L 3890.6006, L509.8002, L100.0100, L501.0250 ####[facility] [address] [place], [address] Erythrocyte distribution width (RBC) [Ratio] 14.4 % Normal 11.6-14.6 [facility] Comment on above: Performed By: #### L 3890.6006, L509.8002, L100.0100, L501.0250 ####[facility] [address] [place], [address] Hematocrit (Bld) [Volume fraction] 33.4 % Low 37-47 [facility] Comment on above: Performed By: #### L 3890.6006, L509.8002, L100.0100, L501.0250 ####[facility] [address] [place], [address] Hemoglobin (Bld) [Mass/Vol] 11.0 g/dL Low 12.0-15.0 [facility] Comment on above: Performed By: #### L 3890.6006, L509.8002, L100.0100, L501.0250 ####[facility] [address] [place], [address] IG% 0.500 Normal 0.0-0.9 [facility] Comment on above: Result Comment: IG% - Immature Granulocytes (promyelocytes, myelocytes and metamyelocytes) > 1% indicates that a LEFT SHIFT is Present. Performed By: #### L 3890.6006, L509.8002, L100.0100, L501.0250 ####[facility] [address] [place], [address] Lymphocytes/100 WBC (Bld) 18.8 % Low 19-41 [facility] Comment on above: Performed By: #### L 3890.6006, L509.8002, L100.0100, L501.0250 ####[facility] [address] [place], [address] MCH (RBC) [Entitic mass] 27.9 pg Normal 27.0-32.0 [facility] Comment on above: Performed By: #### L 3890.6006, L509.8002, L100.0100, L501.0250 ####[facility] [address] [place], [address] MCHC (RBC) [Mass/Vol] 32.9 g/dL Normal 32-36 [facility] Comment on above: Performed By: #### L 3890.6006, L509.8002, L100.0100, L501.0250 ####[facility] [address] [place], [address] MCV (RBC) [Entitic vol] 84.8 fL Normal 81-99 [facility] Comment on above: Performed By: #### L 3890.6006, L509.8002, L100.0100, L501.0250 ####[facility] [address] [place], [address] Monocytes/100 WBC (Bld) 5.0 % Normal 0-10 [facility] Comment on above: Performed By: #### L 3890.6006, L509.8002, L100.0100, L501.0250 ####[facility] [address] [place], [address] Neutrophils/100 WBC (Bld) 74.5 % High 47-70 [facility] Comment on above: Performed By: #### L 3890.6006, L509.8002, L100.0100, L501.0250 ####[facility] [address] [place], [address] Nucleated RBC (Bld) [#/Vol] 0 10*3/uL Normal 0-5 [facility] Comment on above: Performed By: #### L 3890.6006, L509.8002, L100.0100, L501.0250 ####[facility] [address] [place], [address] Platelet mean volume (Bld) [Entitic vol] 10.4 fL Normal 6.2-12.0 [facility] Comment on above: Performed By: #### L 3890.6006, L509.8002, L100.0100, L501.0250 ####[facility] [address] [place], [address] Platelets (Bld) [#/Vol] 290 10*3/uL Normal 150-450 [facility] Comment on above: Performed By: #### L 3890.6006, L509.8002, L100.0100, L501.0250 ####[facility] [address] [place], [address] RBC (Bld) [#/Vol] 3.94 10*6/uL Low 4.2-5.4 [facility] Comment on above: Performed By: #### L 3890.6006, L509.8002, L100.0100, L501.0250 ####[facility] [address] [place], [address] RDW SD 44.6 fl High 35.1-43.9 [facility] Comment on above: Performed By: #### L 3890.6006, L509.8002, L100.0100, L501.0250 ####[facility] [address] [place], [address] WBC (Bld) [#/Vol] 10.5 10*3/uL Normal 4.4-11.0 [facility] Comment on above: Performed By: #### L 3890.6006, L509.8002, L100.0100, L501.0250 ####[facility] [address] [place], [place], [address] Eosinophil percentageOrdered By: Rhina Divina on 06-24-2024 Eosinophils/100 WBC (Bld) 1.0 % 0-5 [facility] Erythrocyte distribution wid th ratioOrdered By: Rhina Divina on 06-24-2024 Erythrocyte distribution width (RBC) [Ratio] 14.4 % 11.6-14.6 [facility] Erythrocyte distribution wid th standard deviationOrdered By: Rhina Divina on 06-24-2024 Erythrocyte distribution width (RBC) [Ratio] 44.6 fl High 35.1-43.9 [facility] Glucose Challenge Gest 1H 50 abdirahman 06-24-2024 GLU GEST 50g 1H 139 mg/dL Normal 70-140 [facility] Comment on above: Performed By: #### L 3890.6006, L509.8002, L100.0100, L501.0250 ####[facility] [address] [place], [place], [id number] Glucose measurement at 2 virgen rs post-dose gestational glucose tolerance testOrdered By: Rhinabev Murcia on 06-24-2024 Glucose [Mass/Vol] 139 mg/dL 70-140 [facility] HIVon 06-24-2024 HIV Non-Reactive Normal Nonreactive [facility] Comment on above: Result Comment: Non- Reactive Reactive Repeatedly reactive samples must be confirmed according to CDC recommended confirmatory algorithms. The subresults for either HIVAG or AHIV can be used as an aid in the selection of the confirmation algorithm for reactive samples. Send out specimens with Reactive results to [facility] for confirmation. Order the HIV antibody detection and differentiation: lc#[id number] Performed By: #### L 3890.6006, L509.8002, L100.0100, L501.0250 ####[facility] [address] [place], [place], [id number] Hematocrit Auto (Bld) [Volum e fraction]Ordered By: Rhina Murcia on 06-24-2024 Hematocrit (Bld) [Volume fraction] 33.4 % Low 37-47 [facility] Hemoglobin measurementOrdere d By: Rhina Murcia on 06-24-2024 Hemoglobin (Bld) [Mass/Vol] 11.0 g/dL Low 12.0-15.0 [facility] Immature granulocytes/100 WB C Auto (Bld)Ordered By: Rhina Murcia on 06-24-2024 Immature granulocytes/100 WBC (Bld) 0.500 % 0.0-0.9 [facility] Comment on above: IG% - Immature Granu locytes (promyelocytes, myelocytes and metamyelocytes) > 1% indicates that a LEFT SHIFT is Present. Laboratory - Chemistry and C hemistry - challengeOrdered By: Rhina Murcia on 06-24-2024 Glucose Ql (U) Negative [facility] Laboratory - UrinalysisOrder ed By: Rhina Murcia on 06-24-2024 Protein Ql (U) Negative [facility] MCV (mean corpuscular volume ) determinationOrdered By: Rhina Murcia on 06-24-2024 MCV (RBC) [Entitic vol] 84.8 fL 81-99 [facility] Mean corpuscular hemoglobin (MCH) determinationOrdered By: Rhina Murcia on 06-24-2024 MCH (RBC) [Entitic mass] 27.9 pg 27.0-32.0 [facility] Mean corpuscular hemoglobin concentration (MCHC) determinationOrdered By: Rhina Murcia on 06-24-2024 MCHC (RBC) [Mass/Vol] 32.9 g/dL 32-36 [facility] Mean platelet volume determi nationOrdered By: Rhina Murcia on 06-24-2024 Platelet mean volume (Bld) [Entitic vol] 10.4 fL 6.2-12.0 [facility] Monocyte percentageOrdered B y: Rhina Murcia on 06-24-2024 Monocytes/100 WBC (Bld) 5.0 % 0-10 [facility] Neutrophil percentageOrdered By: Rhina Murcia on 06-24-2024 Neutrophils/100 WBC (Bld) 74.5 % High 47-70 [facility] No Panel InformationOrdered By: Rhina Murcia on 06-24-2024 HIV (1&2) Antibody Non-Reactive Nonreactive [facility] Comment on above: Non-ReactiveReactive Repeatedly reactive samples must be confirmed according to CDC recommended confirmatory algorithms. The subresults for either HIVAG or AHIV can be used as an aid in the selection of the confirmation algorithm for reactive samples.Send out specimens with Reactive results to [facility] for confirmation.Order the HIV antibody detection and differentiation: #[id number] Nucleated red blood cell per centageOrdered By: Rhina Murcia on 06-24-2024 Nucleated RBC/100 WBC (Bld) [Ratio] 0 % 0-5 [facility] Curriculum Supervisor Office Visit Reporton 06-24-2024 Curriculum Supervisor Office Visit Report [facility]'[address], [address] [place] [address] OFFICE VISIT Date of Service: 06/24/24 MR#: [id number] Acct: [id number] Name: SAMEER CABALLERO Rep #: [id number] : 1990 Provider: Dr. Rhina Santos DO Age/Sex: 34/F Location[place] [facility] [place] Status: Signed Intake Vital Signs 05/02/24 08:23 05/02/24 08:39 05/29/24 07:31 06/24/24 15:31 06/24/24 15:33 Height 5 ft 5 in 5 ft 5 in 5 ft 5 in 5 ft 5 in 5 ft 5 in Weight: 291 lb 4 oz BMI 48.4 BP 127/83 H Intake Visit Reasons: 27wk ob/glucose Auth Specialist Required: No Is patient in pain?: No Allergies No Known Allergies Allergy (Verified 06/24/24 15:31) Medications ???Medication ???Instructions ???Recorded ???Confirmed ???Type multivit-min no.71-iron fum 28 cap PO 02/23/24 06/24/24 History mg-folate no.1 1 mg-dha 300 mg capsule (PNV-[place]) Last Menstrual Period: 12/21/23 Zika: Zika virus screening: Negative : No PFSH PFSH Medical History Seasonal allergies History of frequent headaches Surgical History [place] teeth extracted Family History Grandmother CVA (cerebral vascular accident) Maternal Diabetes Maternal Grandfather Myocardial infarction, Onset Age: 54 Maternal Social History adopted: No household members: spouse housing: house number of children: 0 current occupational status: employed current occupation: [email or web address] current occupational exposures/hazards: No pets and animals: Yes pets and animals: dog(s) history of recent travel: Yes ([employer] [place] in January) out of state: Yes [...] physical activity do you participate in: none ganesh/yazidism: Jewish seatbelt use: always do you feel safe [...] -???-???-???-???-???- ?? (more content not included)... Normal [facility] Platelet countOrdered By: Valdemar Murcia on 06-24-2024 Platelets (Bld) [#/Vol] 290 10*3/uL 150-450 [facility] RBC Auto (Bld) [#/Vol]Ordere d By: Rhina Murcia on 06-24-2024 RBC (Bld) [#/Vol] 3.94 10*6/uL Low 4.2-5.4 [facility] Syphilis Antibodieson 2024 Syphilis Abs Non-Reactive Normal Nonreactive [facility] Comment on above: Performed By: #### L 3890.6006, L509.8002, L100.0100, L501.0250 ####[facility] [address] [place], [address] White blood cell (WBC) count Ordered By: Rhina Murcia on 06-24-2024 WBC (Bld) [#/Vol] 10.5 10*3/uL 4.4-11.0 [facility] Laboratory - Chemistry and C hemistry - challengeOrdered By: Earline Andraed on 05-29-2024 Glucose Ql (U) Negative [facility] Laboratory - UrinalysisOrder ed By: Earline Andrade on 05-29-2024 Protein Ql (U) Negative [facility] Curriculum Supervisor Office Visit Reporton 05-29-2024 Curriculum Supervisor Office Visit Report [facility] [address], [address] [place] [address] OFFICE VISIT Date of Service: 05/29/24 MR#: [id number] Acct: [id number] Name: SAMEER CABALLERO Rep #: [id number] : 1990 Provider: MARIO Fournier ams Age/Sex: 34/F Location: [facility] [place].[facility] Status: Signed Intake Vital Signs 03/01/24 14:33 05/02/24 08:39 05/29/24 07:25 05/29/24 07:31 Height 5 ft 5 in 5 ft 5 in 5 ft 5 in 5 ft 5 in Weight: 285 lb 6 oz BMI 47.5 BP 120/80 Intake Visit Reasons: 23wk ob Auth Specialist Required: No Is patient in pain?: No Allergies No Known Allergies Allergy (Verified 05/29/24 07:23) Medications ???Medication ???Instructions ???Recorded ???Confirmed ???Type multivit-min no.71-iron fum 28 cap PO 02/23/24 05/29/24 History mg-folate no.1 1 mg-dha 300 mg capsule (PNV-[place]) Last Menstrual Period: 12/21/23 Do you think of yourself as: straight/heterosexual Current gender identity: female Zika: Zika virus screening: Negative : No PFSH PFSH Medical History Seasonal allergies History of frequent headaches Surgical History [place] teeth extracted Family History Grandmother CVA (cerebral vascular accident) Maternal Diabetes Maternal Grandfather Myocardial infarction, Onset Age: 54 Maternal Social History adopted: No household members: spouse housing: house number of children: 0 current occupational status: employed current occupation: [email or web address] current occupational exposures/hazards: No pets and animals: [...] physical activity do you participate in: none ganesh/yazidism: Jewish seatbelt use: always do you feel safe [...] -???-???-???-???-???- ???-???- (more content not included)... Normal [facility] Laboratory - Chemistry and C hemistry - challengeOrdered By: Shea Rodriguez on 05-02-2024 Glucose Ql (U) Negative [facility] Laboratory - UrinalysisOrder ed By: Shea Rodriguez on 05-02-2024 Protein Ql (U) Negative [facility] Curriculum Supervisor Office Visit Reporton 05-02-2024 Curriculum Supervisor Office Visit Report [facility]'s [address], [address] [place] [address] OFFICE VISIT Date of Service: 05/02/24 MR#: [id number] Acct: [id number] Name: SAMEER CABALLERO Rep #: [id number] : 1990 Provider: NERY hsieh Age/Sex: 33/F Location: [facility] Status: Signed Intake Vital Signs 03/01/24 14:33 04/02/24 09:19 05/02/24 08:23 Height 5 ft 5 in 5 ft 5 in 5 ft 5 in Weight: 278 lb 2 oz BMI 46.3 BP 126/84 H Intake Visit Reasons: 18 wk ob 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: 18 Week OB Auth Specialist Required: No Is patient in pain?: No Allergies No Known Allergies Allergy (Verified 05/02/24 08:23) Medications ???Medication ???Instructions ???Recorded ???Confirmed ???Type multivit-min no.71-iron fum 28 cap PO 02/23/24 05/02/24 History mg-folate no.1 1 mg-dha 300 mg capsule (PNV-[place]) Last Menstrual Period: 12/21/23 Zika: Zika virus screening: Negative : No PFSH PFSH Medical History Seasonal allergies History of frequent headaches Surgical History [place] teeth extracted Family History Grandmother CVA (cerebral vascular accident) Maternal Diabetes Maternal Grandfather Myocardial infarction, Onset Age: 54 Maternal Social History adopted: No household members: spouse housing: house number of children: 0 current occupational status: employed current occupation: [email or web address] current occupational exposures/hazards: No pets and animals: Yes pets and animals: dog(s) history of recent travel: Yes ([facility] in January) out of state: Yes out [...] physical activity do you participate in: none ganesh/yazidism: Jewish seatbelt use: always do you feel safe [...] to care (more content not included)... Normal [facility] Hemoglobin A1con 04-03-2024 HbA1c (Bld) [Mass fraction] 5.2 % Low <=5.6 [facility] Comment on above: Performed By: #### M 8200.0100 #### [facility] Laboratory [address] [place], [address] L3890.6102on 04-03-2024 HEP B Surf Ag Non-Reactive Normal Nonreactive [facility] Comment on above: Result Comment: Reac tive: Presumptive evidence of HBV. Repeatedly reactive samples must be confirmed using a neutralization test ([employer] HBsAg Confirmatory Test) Non-Reactive: HBsAg not detected; does not exclude the possibility of exposure to HBV Performed By: #### M 8200.0100 #### [facility] Laboratory [address] [place], [address] Absolute lymphocyte countOrd ered By: Earline Andrade on 04-02-2024 Lymphocytes Auto (Unsp spec) [#/Vol] 2.43 10*3/uL 0.83-4.51 [facility] Absolute neutrophil countOrd ered By: Earline Andrade on 04-02-2024 Neutrophils (Bld) [#/Vol] 6.7 10*3/uL 2.0-7.7 [facility] Automated lymphocyte count a s percentage of total leukocytesOrdered By: Earline Andrade on 04-02-2024 Lymphocytes/100 WBC Auto (Unsp spec) 24.8 % 19-41 [facility] Basophil percentageOrdered B y: Earline Andrade on 04-02-2024 Basophils/100 WBC (Bld) 0.3 % 0-1 [facility] CBC W/Diff, Automatedon 03-10 Absolute Lymph 2.43 X10 3/uL Normal 0.83-4.51 [facility] Comment on above: Performed By: #### L 3890.6006, L509.4006, L509.8002, BTS, L900.0098, L3890.6102, L100.0100, L501.9985, L3890.6301 ####[facility] [address] [place], [address] Absolute Neut 6.7 X10 3/uL Normal 2.0-7.7 [facility] Comment on above: Performed By: #### L 3890.6006, L509.4006, L509.8002, BTS, L900.0098, L3890.6102, L100.0100, L501.9985, L3890.6301 ####[facility] [address] [place], [address] Basophils/100 WBC (Bld) 0.3 % Normal 0-1 [facility] Comment on above: Performed By: #### L 3890.6006, L509.4006, L509.8002, BTS, L900.0098, L3890.6102, L100.0100, L501.9985, L3890.6301 ####[facility] [address] [facility] [place], [address] Eosinophils/100 WBC (Bld) 1.3 % Normal 0-5 [facility] Comment on above: Performed By: #### L 3890.6006, L509.4006, L509.8002, BTS, L900.0098, L3890.6102, L100.0100, L501.9985, L3890.6301 ####[facility] [address] [place], [address] Erythrocyte distribution width (RBC) [Ratio] 13.6 % Normal 11.6-14.6 [facility] Comment on above: Performed By: #### L 3890.6006, L509.4006, L509.8002, BTS, L900.0098, L3890.6102, L100.0100, L501.9985, L3890.6301 ####[facility] [address] [place], [address] Hematocrit (Bld) [Volume fraction] 38.5 % Normal 37-47 [facility] Comment on above: Performed By: #### L 3890.6006, L509.4006, L509.8002, BTS, L900.0098, L3890.6102, L100.0100, L501.9985, L3890.6301 ####[facility] [address] [place], [address] Hemoglobin (Bld) [Mass/Vol] 13.0 g/dL Normal 12.0-15.0 [facility] Comment on above: Performed By: #### L 3890.6006, L509.4006, L509.8002, BTS, L900.0098, L3890.6102, L100.0100, L501.9985, L3890.6301 ####[facility] [address] [place], [address] IG% 0.300 Normal 0.0-0.9 [facility] Comment on above: Result Comment: IG% - Immature Granulocytes (promyelocytes, myelocytes and metamyelocytes) > 1% indicates that a LEFT SHIFT is Present. Performed By: #### L 3890.6006, L509.4006, L509.8002, BTS, L900.0098, L3890.6102, L100.0100, L501.9985, L3890.6301 ####[facility] [address] [place], [address] Lymphocytes/100 WBC (Bld) 24.8 % Normal 19-41 [facility] Comment on above: Performed By: #### L 3890.6006, L509.4006, L509.8002, BTS, L900.0098, L3890.6102, L100.0100, L501.9985, L3890.6301 ####[facility] [address] [place], [address] MCH (RBC) [Entitic mass] 28.1 pg Normal 27.0-32.0 [facility] Comment on above: Performed By: #### L 3890.6006, L509.4006, L509.8002, BTS, L900.0098, L3890.6102, L100.0100, L501.9985, L3890.6301 ####[facility] [address] [place], [address] MCHC (RBC) [Mass/Vol] 33.8 g/dL Normal 32-36 [facility] Comment on above: Performed By: #### L 3890.6006, L509.4006, L509.8002, BTS, L900.0098, L3890.6102, L100.0100, L501.9985, L3890.6301 ####[facility] [address] [place], [address] MCV (RBC) [Entitic vol] 83.2 fL Normal 81-99 [facility] Comment on above: Performed By: #### L 3890.6006, L509.4006, L509.8002, BTS, L900.0098, L3890.6102, L100.0100, L501.9985, L3890.6301 ####[facility] [address] [place], [address] Monocytes/100 WBC (Bld) 5.2 % Normal 0-10 [facility] Comment on above: Performed By: #### L 3890.6006, L509.4006, L509.8002, BTS, L900.0098, L3890.6102, L100.0100, L501.9985, L3890.6301 ####[facility] [address] [place], [address] Neutrophils/100 WBC (Bld) 68.1 % Normal 47-70 [facility] Comment on above: Performed By: #### L 3890.6006, L509.4006, L509.8002, BTS, L900.0098, L3890.6102, L100.0100, L501.9985, L3890.6301 ####[facility] [address] [place], [address] Nucleated RBC (Bld) [#/Vol] 0 10*3/uL Normal 0-5 [facility] Comment on above: Performed By: #### L 3890.6006, L509.4006, L509.8002, BTS, L900.0098, L3890.6102, L100.0100, L501.9985, L3890.6301 ####[facility] [address] [place], [address] Platelet mean volume (Bld) [Entitic vol] 11.4 fL Normal 6.2-12.0 [facility] Comment on above: Performed By: #### L 3890.6006, L509.4006, L509.8002, BTS, L900.0098, L3890.6102, L100.0100, L501.9985, L3890.6301 ####[facility] [address] [place], [address]( Platelets (Bld) [#/Vol] 269 10*3/uL Normal 150-450 [facility] Comment on above: Performed By: #### L 3890.6006, L509.4006, L509.8002, BTS, L900.0098, L3890.6102, L100.0100, L501.9985, L3890.6301 ####[facility] [address] [place], [address] RBC (Bld) [#/Vol] 4.63 10*6/uL Normal 4.2-5.4 [facility] Comment on above: Performed By: #### L 3890.6006, L509.4006, L509.8002, BTS, L900.0098, L3890.6102, L100.0100, L501.9985, L3890.6301 ####[facility] [address] [place], [address] RDW SD 41.1 fl Normal 35.1-43.9 [facility] Comment on above: Performed By: #### L 3890.6006, L509.4006, L509.8002, BTS, L900.0098, L3890.6102, L100.0100, L501.9985, L3890.6301 ####[facility] [address] [place], [place], [address](261) WBC (Bld) [#/Vol] 9.8 10*3/uL Normal 4.4-11.0 [facility] Comment on above: Performed By: #### L 3890.6006, L509.4006, L509.8002, BTS, L900.0098, L3890.6102, L100.0100, L501.9985, L3890.6301 ####[facility] [address] [place], [place], [address] Eosinophil percentageOrdered By: Earline Andrade on 04-02-2024 Eosinophils/100 WBC (Bld) 1.3 % 0-5 [facility] Erythrocyte distribution wid th ratioOrdered By: Earline Andrade on 04-02-2024 Erythrocyte distribution width (RBC) [Ratio] 13.6 % 11.6-14.6 [facility] Erythrocyte distribution wid th standard deviationOrdered By: Earline Andrade on 04-02-2024 Erythrocyte distribution width (RBC) [Entitic vol] 41.1 fL 35.1-43.9 [facility] Erythrocyte distribution width (RBC) [Ratio] 41.1 fl 35.1-43.9 [facility] HBV surface Ag Ql (S)Ordered By: Earline Andrade on 04-02-2024 Hepatitis B Surface Antigen Non-Reactive Nonreactive [facility] Comment on above: Reactive: Presumptiv e evidence of HBV. Repeatedly reactive samples must be confirmed using a neutralization test ([employer] HBsAg Confirmatory Test)Non-Reactive: HBsAg not detected; does not exclude the possibility of exposure to HBV Hematocrit Auto (Bld) [Volum e fraction]Ordered By: Earline Andrade on 04-02-2024 Hematocrit (Bld) [Volume fraction] 38.5 % 37-47 [facility] Hemoglobin A1c percentageOrd ered By: Earline Andrade on 04-02-2024 HbA1c (Bld) [Mass fraction] 5.2 % Low >5.7 [facility] Hemoglobin measurementOrdere d By: Earline Andrade on 04-02-2024 Hemoglobin (Bld) [Mass/Vol] 13.0 g/dL 12.0-15.0 [facility] Hepatitis C antibodyOrdered By: Earline Andrade on 04-02-2024 Hepatitis C Antibody Non-Reactive Nonreactive [facility] Comment on above: Reactive: Presumptiv e evidence of antibodies to HCV. Follow CDC recommendations for supplemental testing.Non-Reactive: Antibodies to HCV were not detected; does not exclude the possibility of exposure to HCVReactive Results are presumptive evidence of antibodies to HCV. Follow CDC recommendations for supplemental testing.Order confirmation testing: HCV Quant by PCR testing - HCVPCR #[id number] Non Reactive: < 0.8 Equivocal: >/= 0.8 to < 1.0 Reactive: >/= 1.0The CDC requires that a reactive/equivocal HCV antibody result be sent out for confirmation. HCV Quant by PCR testing. Immature granulocytes/100 WB C Auto (Bld)Ordered By: Earline Andrade on 04-02-2024 Immature granulocytes/100 WBC (Bld) 0.300 % 0.0-0.9 [facility] Comment on above: IG% - Immature Granu locytes (promyelocytes, myelocytes and metamyelocytes) > 1% indicates that a LEFT SHIFT is Present. L3890.6006on 04-02-2024 HIV Non-Reactive Normal Nonreactive [facility] Comment on above: Result Comment: Non- Reactive Reactive Repeatedly reactive samples must be confirmed according to CDC recommended confirmatory algorithms. The subresults for either HIVAG or AHIV can be used as an aid in the selection of the confirmation algorithm for reactive samples. Send out specimens with Reactive results to [facility] for confirmation. Order the HIV antibody detection and differentiation: #[id number] Performed By: #### M 8200.0100 #### [facility] Laboratory [address] [place], [address] L3890.6301on 04-02-2024 Hepatitis C Ab Non-Reactive Normal Nonreactive [facility] Comment on above: Result Comment: Reac tive: Presumptive evidence of antibodies to HCV. Follow CDC recommendations for supplemental testing. Non-Reactive: Antibodies to HCV were not detected; does not exclude the possibility of exposure to HCV Reactive Results are presumptive evidence of antibodies to HCV. Follow CDC recommendations for supplemental testing. Order confirmation testing: HCV Quant by PCR testing - HCVPCR #[id number] Non Reactive: < 0.8 Equivocal: >/= 0.8 to < 1.0 Reactive: >/= 1.0 The [facility] requires that a reactive/equivocal HCV antibody result be sent out for confirmation. HCV Quant by PCR testing. Performed By: #### M 8200.0100 #### [facility] Laboratory [address] [place], [address] L509.4006on 04-02-2024 Rubella IgG REAC Normal Nonreactive [facility] Comment on above: Result Comment: Anti body Result: Interpretation Non-Reactive: Non-Immune Reactive: Immune The following results were obtained with the [employer] Rubella IgG assay. Results from assays of other manufacturers cannot be used interchangeably. Performed By: #### L 3890.6006, L509.4006, L509.8002, BTS, L900.0098, L3890.6102, L100.0100, L501.9985, L3890.6301 ####[facility] [address] [place], [address] L509.8002on 04-02-2024 Syphilis Abs Non-Reactive Normal Nonreactive [facility] Comment on above: Performed By: #### M 8200.0100 #### [facility] Laboratory [address] [place], [address] Laboratory - Chemistry and C hemistry - challengeOrdered By: Maris Aragon on 04-02-2024 Glucose Ql (U) Negative [facility] Laboratory - Microbiology an d Antimicrobial susceptibilityOrdered By: Earline Andrade on 04-02-2024 HBV surface Ag Ql (S) Non-Reactive Nonreactive [facility] Comment on above: Reactive: Presumptiv e evidence of HBV. Repeatedly reactive samples must be confirmed using a neutralization test ([employer] HBsAg Confirmatory Test)Non-Reactive: HBsAg not detected; does not exclude the possibility of exposure to HBV Laboratory - UrinalysisOrder ed By: Maris Aragon on 04-02-2024 Protein Ql (U) Negative [facility] Lymphocytes Auto (Unsp spec) [#/Vol]Ordered By: Earline Andrade on 04-02-2024 Lymphocytes (Bld) [#/Vol] 2.43 10*3/uL 0.83-4.51 [facility] Lymphocytes/100 WBC Auto (Un sp spec)Ordered By: Earline Andrade on 04-02-2024 Lymphocytes/100 WBC (Bld) 24.8 % 19-41 [facility] MCV (mean corpuscular volume ) determinationOrdered By: Earline Andrade on 04-02-2024 MCV (RBC) [Entitic vol] 83.2 fL 81-99 [facility] Mean corpuscular hemoglobin (MCH) determinationOrdered By: Earline Andrade on 04-02-2024 MCH (RBC) [Entitic mass] 28.1 pg 27.0-32.0 [facility] Mean corpuscular hemoglobin concentration (MCHC) determinationOrdered By: Earline Andrade on 04-02-2024 MCHC (RBC) [Mass/Vol] 33.8 g/dL 32-36 [facility] Mean platelet volume determi nationOrdered By: Earline Andrade on 04-02-2024 Platelet mean volume (Bld) [Entitic vol] 11.4 fL 6.2-12.0 [facility] Miscellaneous procedureOrder ed By: Earline Andrade on 04-02-2024 Miscellaneous Test Comment SEE SCANNED REPORT [facility] Monocyte percentageOrdered B y: Earline Andrade on 04-02-2024 Monocytes/100 WBC (Bld) 5.2 % 0-10 [facility] NATERAon 04-02-2024 NATURA SEE SCANNED REPORT Normal [facility] Comment on above: Performed By: #### L 3890.6006, L509.4006, L509.8002, BTS, L900.0098, L3890.6102, L100.0100, L501.9985, L3890.6301 ####[facility] [id number] [place], [address] Neutrophil percentageOrdered By: Earline Andrade on 04-02-2024 Neutrophils/100 WBC (Bld) 68.1 % 47-70 [facility] No Panel InformationOrdered By: Earline Andrade on 04-02-2024 HIV (1&2) Antibody Non-Reactive Nonreactive [facility] Comment on above: Non-ReactiveReactive Repeatedly reactive samples must be confirmed according to CDC recommended confirmatory algorithms. The subresults for either HIVAG or AHIV can be used as an aid in the selection of the confirmation algorithm for reactive samples.Send out specimens with Reactive results to [facility] for confirmation.Order the HIV antibody detection and differentiation: #[id number] Rubella IgG Antibody REAC Nonreactive [facility] Comment on above: Antibody Result: Int erpretationNon-Reactive: Non-ImmuneReactive: ImmuneThe following results were obtained with the [employer] Rubella IgG assay. Results from assays of other manufacturers cannot be used interchangeably. Syphilis Total Antibody Non-Reactive Nonreactiv e [facility] Nucleated red blood cell per centageOrdered By: Earline Andrade on 04-02-2024 Nucleated RBC/100 WBC (Bld) [Ratio] 0 % 0-5 [facility] Curriculum Supervisor Office Visit Reporton 04-02-2024 Curriculum Supervisor Office Visit Report [facility]'[address], [address] [place] [address] OFFICE VISIT Date of Service: 04/02/24 MR#: [id number] Acct: [id number] Name: FEDERICOSAMEER KELSEY Rep #: [id number] : 1990 Provider: Dr. Maris yang MD Age/Sex: 33/F Location: [facility] Status: Signed Intake Vital Signs 12/25/23 07:48 03/01/24 14:33 04/02/24 09:19 Height 5 ft 5 in 5 ft 5 in 5 ft 5 in Weight: 265 lb 8 oz BMI 44.1 BP 133/86 H Intake Visit Reasons: 14wk OB Auth Specialist Required: No Is patient in pain?: No Feel stressed/tense/nervou s/anxious/difficulty sleeping: not at all Allergies No Known Allergies Allergy (Verified 04/02/24 09:20) Medications ???Medication ???Instructions ???Recorded ???Confirmed ???Type multivit-min no.71-iron fum 28 cap PO 02/23/24 04/02/24 History mg-folate no.1 1 mg-dha 300 mg capsule (PNV-[place]) Last Menstrual Period: 12/21/23 Zika: Zika virus screening: Negative : No Have you fallen in the past year?: No PFSH PFSH Medical History Seasonal allergies History of frequent headaches Surgical History [place] teeth extracted Family History Grandmother CVA (cerebral vascular accident) Maternal Diabetes Maternal Grandfather Myocardial infarction, Onset Age: 54 Maternal Social History adopted: No household members: spouse housing: house number of children: 0 current occupational status: employed current occupation: [email or web address] current occupational exposures/hazards: No pets and animals: Yes pets and animals: dog(s) history of recent travel: Yes ([facility] in January) out of state: Yes out [...] physical activity do you participate in: none ganesh/yazidism: Jewish seatbelt use: always do you feel safe [...] use, Childb (more content not included)... Normal [facility] Platelet countOrdered By: Ishan Andrade on 04-02-2024 Platelets (Bld) [#/Vol] 269 10*3/uL 150-450 [facility] RBC Auto (Bld) [#/Vol]Ordere d By: Earline Andrade on 04-02-2024 RBC (Bld) [#/Vol] 4.63 10*6/uL 4.2-5.4 [facility] Type AND Screenon 04-02-2024 Ab SCREEN GEL Negative Normal [facility] Comment on above: Order Comment: PN Performed By: #### L 3890.6006, L509.4006, L509.8002, BTS, L900.0098, L3890.6102, L100.0100, L501.9985, L3890.6301 ####[facility] [address] [place], [address] White blood cell (WBC) count Ordered By: Earline Andrade on 04-02-2024 WBC (Bld) [#/Vol] 9.8 10*3/uL 4.4-11.0 [facility] Chlamydia/GC MICAH aptimaon CHLAMY,NUC ACID Negative Normal Negative [facility] Comment on above: Performed By: #### M 100.2200, L7000.1800 #### [facility] Laboratory [address] [place], [address] GC BY NUC ACID Negative Normal Negative [facility] Comment on above: Result Comment: Perf ormed at: =G - [facility] [address] [place], [place] [id number] Family Psychologist: Lori Coppola MD, Phone: [phone] Performed By: #### M 100.2200, L7000.1800 #### [facility] [address] [place], [address] Urine Cultureon 03-02-2024 URC Culture exhibits no growth. Normal [facility] Comment on above: Performed By: #### M 100.2200, L7000.1800 #### [facility] [address] [place], [address] C. trachomatis rRNA MICAH+prob e Ql (Unsp spec)Ordered By: Earline Andrade on 03-01-2024 Chlamydia DNA (MICAH) Negative Negative [facility] Chlamydia trachomatis rRNA d etection by probe and target amplification methodOrdered By: Earline Andrade on 03-01-2024 C. trachomatis rRNA MICAH+probe Ql (Unsp spec) Negative Negative [facility] Neisseria gonorrhoeae nuclei c acid detection by amplified probe techniqueOrdered By: Earline Andrade on 03-01-2024 N. gonorrhoeae DNA MICAH+probe Ql (Unsp spec) Negative Negative [facility] Comment on above: Performed at: =G - [facility] [address] [place], [place] [id number] Director: Lori Coppola MD, Phone: [phone] Curriculum Supervisor Office Visit Reporton 03-01-2024 Curriculum Supervisor Office Visit Report [facility]'[address] [place] [address] OFFICE VISIT Date of Service: 03/01/24 MR#: [id number] Acct: [id number] Name: SAMEER CABALLERO Rep #: [id number] : 1990 Provider: MARIO Fournier ams Age/Sex: 33/F Location: [facility] Status: Signed Intake Vital Signs 12/25/23 07:48 03/01/24 14:33 Height 5 ft 5 in 5 ft 5 in Weight: 268 lb 267 lb 2 oz BMI 44.6 44.4 BP 132/85 H 137/83 H 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, LMP 12/20, LORY 09/26/24 Auth Specialist Required: No Is patient in pain?: No Allergies No Known Allergies Allergy (Verified 03/01/24 14:31) Medications ???Medication ???Instructions ???Recorded ???Confirmed ???Type multivit-min no.71-iron fum 28 cap PO 02/23/24 02/23/24 History mg-folate no.1 1 mg-dha 300 mg capsule (PNV-[place]) Last Menstrual Period: 12/21/23 Zika: Zika virus screening: Negative : Yes Have you fallen in the past year?: No PFSH PFSH Medical History Seasonal allergies History of frequent headaches Surgical History [place] teeth extracted Family History Grandmother CVA (cerebral vascular accident) Maternal Diabetes Maternal Grandfather Myocardial infarction, Onset Age: 54 Maternal Social History adopted: No household members: spouse housing: house number of children: 0 service: No current occupational status: employed current occupation: [email or web address] current occupational exposures/hazards: No pets and animals: [...] physical activity do you participate in: none ganesh/yazidism: Jewish seatbelt use: always do you feel safe [...] Genetic Disease: (more content not included)... Normal [facility] Urine cultureOrdered By: Riccardo Andrade on 03-01-2024 Bacteria identified Cx Nom (U) Culture exhibits no growth. [facility] PAP IG HPV APTIMA 16/18,45on 01-01-2024 ADEQ Comment Normal . [facility] Comment on above: Order Comment: Speci men Comment: [id number] Comment: Source.............CervixSpecimen Comment: No. of containers..01 ThinPrep Vial Result Comment: Sati sfactory for evaluation. Endocervical and/or squamous metaplastic cells (endocervical component) are present. Performed By: #### M 8200.0100 #### [facility] Laboratory [address] [place], [place], [address] COMM . Normal . [facility] Comment on above: Order Comment: Speci men Comment: [id number] Comment: Source.............CervixSpecimen Comment: No. of containers..01 ThinPrep Vial Performed By: #### M 8200.0100 #### [facility] Laboratory [address] [place], [address] COMMENT Comment Normal . [facility] Comment on above: Order Comment: Speci men Comment: [id number] Comment: Source.............CervixSpecimen Comment: No. of containers..01 ThinPrep Vial Result Comment: This liquid based ThinPrep(R) pap test was screened with the use of an image guided system. Performed By: #### Cm 8200.0100 #### [facility] [address] [place], [place], [address] DIAG Comment Normal . [facility] Comment on above: Order Comment: Speci men Comment: [id number] Comment: Source.............CervixSpecimen Comment: No. of containers..01 ThinPrep Vial Result Comment: NEGA TIVE FOR INTRAEPITHELIAL LESION OR MALIGNANCY. Performed By: #### M 8200.0100 #### [facility] [address] [place], [place], [address] HPV APTIMA, HR Positive Abnormal Negative [facility] Comment on above: Order Comment: Speci men Comment: [id number] Comment: Source.............CervixSpecimen Comment: No. of containers..01 ThinPrep Vial Result Comment: This nucleic acid amplification test detects fourteen high- risk HPV types (16,18,31,33,35,39,45,51,52,56,58,59,66,68) without differentiation. Performed By: #### M 8200.0100 #### [facility] [address] [place], [place], [address] HPV Lizette 18,45 Positive Abnormal Negative [facility] Comment on above: Order Comment: Speci men Comment: [id number] Comment: Source.............CervixSpecimen Comment: No. of containers..01 ThinPrep Vial Result Comment: Perf ormed at: [address] [id number] Family Psychologist: Alexandro Burrell PhD, Phone: [phone] Performed at: [address] [id number] Family Psychologist: Lori Coppola MD, Phone: [phone] Performed at: =[address] [id number] Family Psychologist: Lori Coppola MD, Phone: [phone] Performed By: #### M 8200.0100 #### [facility] [address] [place], [place], [address] HPV Lizette Rfx Comment Normal . [facility] Comment on above: Order Comment: Speci men Comment: [id number] Comment: Source.............CervixSpecimen Comment: No. of containers..01 ThinPrep Vial Result Comment: Yecenia chávez, see HPV Genotype results. Performed By: #### M 8200.0100 #### [facility] [address] [place], [address] HPV Genotype 16 Negative Normal Negative [facility] Comment on above: Order Comment: Speci men Comment: [id number] Comment: Source.............CervixSpecimen Comment: No. of containers..01 ThinPrep Vial Performed By: #### M 8200.0100 #### [facility] [address] [place], [place], [address] PAPSMR Comment Normal . [facility] Comment on above: Order Comment: Speci men Comment: [id number] Comment: Source.............CervixSpecimen Comment: No. of containers..01 ThinPrep [...] occur. Performed By: #### M 8200.0100 #### [facility] [address] [place], [place], [address] PERFORM Comment Normal . [facility] Comment on above: Order Comment: Speci men Comment: [id number] Comment: Source.............CervixSpecimen Comment: No. of containers..01 ThinPrep Vial Result Comment: Maritza Silva, Automatic Log Cut Off Sawyer (ASCP) Performed By: #### Cm 8200.0100 #### [facility] [address] [place], [place], [address] Power Crane Operator Cyto stain Nom (C vx/Vag) [ID]Ordered By: Laura Lechuga on 12-25-2023 Pap Smear Performed By Comment . [facility] Comment on above: Cata Silva, Cyto technologist (ASCP) Cytology report Cyto stain D oc (Cvx/Vag)Ordered By: Laura Lechuga on 12-25-2023 Thin Prep Pap Smear Comment . [facility] Comment on above: The Pap smear is [...] 12-25-2023 HPV Genotype Special Info Comment . [facility] Comment on above: Criteria met, see HP V Genotype results. HPV 16 DNA Probe+sig amp Ql (Cvx)Ordered By: Laura Lechuga on 12-25-2023 HPV Type 16 Comment Negative Negative [facility] HPV 16+18+31+33+35+39+45+51+ 52+56+58+59+66+68 DNA Probe+sig amp Ql (Cvx)Ordered By: Laura Lechuga on 12-25-2023 Human Papillomavirus High Risk Positive High Negative [facility] Comment on above: This nucleic acid am plification test detects fourteen high-risk HPV types (16,18,31,33,35,39,45,51,52,56,58,59,66,68)without differentiation. HPV E6+E7 mRNA MICAH+probe Ql (Cvx)Ordered By: Laura Lechuga on 12-25-2023 HPV Type 18 Comment Positive High Negative [facility] Comment on above: Performed at: [facility] [address] [id number] Director: Alexandro Burrell PhD, Phone: [phone] at: [facility] [address] [id number] Director: Lori Coppola MD, Phone: [phone] at: = - [facility] [id number] Director: Lori Coppola MD, Phone: [phone] Image-guided ThinPrep PapOrd ered By: Laura Lechuga on 12-25-2023 Pap Smear Note Comment . [facility] Comment on above: This liquid based Th inPrep(R) pap test was screened withthe use of an image guided system. Image-guided liquid-based Pa pOrdered By: Laura Lechuga on 12-25-2023 Pap Smear Diagnosis Comment . [facility] Comment on above: NEGATIVE FOR INTRAEP ITHELIAL LESION OR MALIGNANCY. 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 She is unsure where this [...] size normal (more content not included)... Normal [facility] Service comment (Unsp spec) [Interp]Ordered By: Laura Lechuga on 12-25-2023 Pap Smear Comment (3) . . [facility] Vital Signs Date Time Vital Sign Value Performing Clinician Alber olvera 09-17-2024 13:22-0400 Body height 165.1 cm No Primary Care Physician [facility] 09-17-2024 13:22-0400 Body mass index (BMI) [Ratio] 52.3 kg/m2 No Primary Care Physician [facility] 09-17-2024 13:22-0400 Body weight 142.59 kg No Primary Care Physician [facility] 09-17-2024 13:22-0400 Diastolic blood pressure 98 mm[Hg] No Primary Care Physician [facility] 09-17-2024 13:22-0400 Systolic blood pressure 138 mm[Hg] No Primary Care Physician [facility] 09-13-2024 16:17-0400 Body height 165.1 cm No Primary Care Physician [facility] 09-13-2024 16:17-0400 Body mass index (BMI) [Ratio] 52.2 kg/m2 No Primary Care Physician [facility] 09-13-2024 16:17-0400 Body weight 142.42 kg No Primary Care Physician [facility] 09-13-2024 16:11-0400 Diastolic blood pressure 82 mm[Hg] No Primary Care Physician [facility] 09-13-2024 16:11-0400 Heart rate 96 /min No Primary Care Physician [facility] 09-13-2024 16:11-0400 Systolic blood pressure 136 mm[Hg] No Primary Care Physician [facility] 09-13-2024 14:10-0400 Body temperature 97.9 [degF] No Primary Care Physician [facility] 09-13-2024 14:10-0400 Respiratory rate 16 /min No Primary Care Physician [facility] 09-13-2024 14:09-0400 SaO2% (BldA) [Mass fraction] 99 % No Primary Care Physician [facility] 09-10-2024 08:26-0400 Body height 165.1 cm No Primary Care Physician [facility] 09-10-2024 08:25-0400 Body mass index (BMI) [Ratio] 51.8 kg/m2 No Primary Care Physician [facility] 09-10-2024 08:25-0400 Body weight 141.26 kg No Primary Care Physician [facility] 09-10-2024 08:25-0400 Diastolic blood pressure 88 mm[Hg] No Primary Care Physician [facility] 09-10-2024 08:25-0400 Systolic blood pressure 139 mm[Hg] No Primary Care Physician [facility] 09-02-2024 08:49-0400 Body height 165.1 cm No Primary Care Physician [facility] 09-02-2024 08:49-0400 Body mass index (BMI) [Ratio] 50 kg/m2 No Primary Care Physician [facility] 09-02-2024 08:49-0400 Body weight 136.3 kg No Primary Care Physician [facility] 09-02-2024 08:49-0400 Diastolic blood pressure 87 mm[Hg] No Primary Care Physician [facility] 09-02-2024 08:49-0400 Systolic blood pressure 132 mm[Hg] No Primary Care Physician [facility] 08-26-2024 10:22-0400 Diastolic blood pressure 62 mm[Hg] No Primary Care Physician [facility] 08-26-2024 10:22-0400 Heart rate 87 /min No Primary Care Physician [facility] 08-26-2024 10:22-0400 Systolic blood pressure 136 mm[Hg] No Primary Care Physician [facility] 08-26-2024 09:49-0400 Body height 165.1 cm No Primary Care Physician [facility] 08-26-2024 09:49-0400 Body mass index (BMI) [Ratio] 50.6 kg/m2 No Primary Care Physician [facility] 08-26-2024 09:49-0400 Body weight 138.1 kg No Primary Care Physician [facility] 08-26-2024 09:46-0400 Respiratory rate 16 /min No Primary Care Physician [facility] 08-26-2024 08:40-0400 Body height 165.1 cm No Primary Care Physician [facility] 08-26-2024 08:40-0400 Body mass index (BMI) [Ratio] 50.4 kg/m2 No Primary Care Physician [facility] 08-26-2024 08:40-0400 Body weight 137.55 kg No Primary Care Physician [facility] 08-26-2024 08:40-0400 Diastolic blood pressure 84 mm[Hg] No Primary Care Physician [facility] 08-26-2024 08:40-0400 Systolic blood pressure 127 mm[Hg] No Primary Care Physician [facility] 08-19-2024 08:37-0400 Body height 165.1 cm No Primary Care Physician [facility] 08-19-2024 08:37-0400 Body mass index (BMI) [Ratio] 49.6 kg/m2 No Primary Care Physician [facility] 08-19-2024 08:37-0400 Body weight 135.34 kg No Primary Care Physician [facility] 08-19-2024 08:37-0400 Diastolic blood pressure 77 mm[Hg] No Primary Care Physician [facility] 08-19-2024 08:37-0400 Systolic blood pressure 126 mm[Hg] No Primary Care Physician [facility] 08-12-2024 08:11-0400 Body mass index (BMI) [Ratio] 49.4 kg/m2 No Primary Care Physician [facility] 08-12-2024 08:11-0400 Body weight 134.88 kg No Primary Care Physician [facility] 08-12-2024 08:11-0400 Diastolic blood pressure 84 mm[Hg] No Primary Care Physician [facility] 08-12-2024 08:11-0400 Systolic blood pressure 130 mm[Hg] No Primary Care Physician [facility] 07-30-2024 08:28-0400 Body height 165.1 cm No Primary Care Physician [facility] 07-30-2024 08:22-0400 Body mass index (BMI) [Ratio] 48.6 kg/m2 No Primary Care Physician [facility] 07-30-2024 08:22-0400 Body weight 132.44 kg No Primary Care Physician [facility] 07-30-2024 08:22-0400 Diastolic blood pressure 78 mm[Hg] No Primary Care Physician [facility] 07-30-2024 08:22-0400 Systolic blood pressure 118 mm[Hg] No Primary Care Physician [facility] 07-16-2024 15:29-0400 Body height 165.1 cm No Primary Care Physician [facility] 07-16-2024 15:29-0400 Body mass index (BMI) [Ratio] 49.1 kg/m2 No Primary Care Physician [facility] 07-16-2024 15:29-0400 Body weight 133.92 kg No Primary Care Physician [facility] 07-16-2024 15:29-0400 Diastolic blood pressure 74 mm[Hg] No Primary Care Physician [facility] 07-16-2024 15:29-0400 Systolic blood pressure 120 mm[Hg] No Primary Care Physician [facility] 06-24-2024 15:33-0400 Body height 165.1 cm No Primary Care Physician [facility] 06-24-2024 15:31-0400 Body mass index (BMI) [Ratio] 48.4 kg/m2 No Primary Care Physician [facility] 06-24-2024 15:31-0400 Body weight 132.1 kg No Primary Care Physician [facility] 06-24-2024 15:31-0400 Diastolic blood pressure 83 mm[Hg] No Primary Care Physician [facility] 06-24-2024 15:31-0400 Systolic blood pressure 127 mm[Hg] No Primary Care Physician [facility] 05-29-2024 07:25-0400 Body mass index (BMI) [Ratio] 47.5 kg/m2 No Primary Care Physician [facility] 05-29-2024 07:25-0400 Body weight 129.44 kg No Primary Care Physician [facility] 05-29-2024 07:25-0400 Diastolic blood pressure 80 mm[Hg] No Primary Care Physician [facility] 05-29-2024 07:25-0400 Systolic blood pressure 120 mm[Hg] No Primary Care Physician [facility] 05-02-2024 08:23-0400 Body mass index (BMI) [Ratio] 46.3 kg/m2 No Primary Care Physician [facility] 05-02-2024 08:23-0400 Body weight 126.15 kg No Primary Care Physician [facility] 05-02-2024 08:23-0400 Diastolic blood pressure 84 mm[Hg] No Primary Care Physician [facility] 05-02-2024 08:23-0400 Systolic blood pressure 126 mm[Hg] No Primary Care Physician [facility] 04-02-2024 09:19-0500 Body height 165.1 cm Laura Ramirezman BANK PRESIDENT[employer]C Work Phone: [facility] 04-02-2024 09:19-0500 Body mass index (BMI) [Ratio] 44.1 kg/m2 Laura Ramirezman BANK PRESIDENT-C Work Phone: [facility] 04-02-2024 09:19-0500 Body weight 120.42 kg Laura Ramirezman BANK PRESIDENT-C Work Phone: [facility] 04-02-2024 09:19-0500 Diastolic blood pressure 86 mm[Hg] Laura Ramirezman BANK PRESIDENT-C Work Phone: [facility] 04-02-2024 09:19-0500 Systolic blood pressure 133 mm[Hg] Laura Ramirezman BANK PRESIDENT-C Work Phone: [facility] 03-01-2024 14:33-0500 Body mass index (BMI) [Ratio] 44.4 kg/m2 Laura Barkman BANK PRESIDENT-C Work Phone: [facility] 03-01-2024 14:33-0500 Body weight 121.16 kg Laura Ramirezman BANK PRESIDENT-C Work Phone: [facility] 03-01-2024 14:33-0500 Diastolic blood pressure 83 mm[Hg] Laura Ramirezman BANK PRESIDENT-C Work Phone: [facility] 03-01-2024 14:33-0500 Systolic blood pressure 137 mm[Hg] Laura Barkman BANK PRESIDENT-C Work Phone: [facility] 12-25-2023 07:48-0500 Body mass index (BMI) [Ratio] 44.6 kg/m2 Laura Ramirezman B[employer] PRESIDENT[employer]C Work Phone: [facility] 12-25-2023 07:48-0500 Body weight 121.56 kg Laura Ramirezman B[employer] PRESIDENT[employer]C Work Phone: [facility] 12-25-2023 07:48-0500 Diastolic blood pressure 85 mm[Hg] Laura Lechuga BANK PRESIDENT-C Work Phone: [facility] 12-25-2023 07:48-0500 Systolic blood pressure 132 mm[Hg] Laura Lechuga BANK PRESIDENT-C Work Phone: [facility] Encounters Encounter Date Encounter Type Care Provider Facility Start: 09-25-2024 ambulatory Rhian Maysty:[facility] Start: 09-23-2024 ambulatory No Primary Car e Physician Facility:[facility] Start: 09-20-2024 ambulatory No Primary Car e Physician Facility:[facility] Start: 09-17-2024 End: 09-17-2024 Patient encounter procedure Earline Andrade CNM -[facility] Work Phone: Start: 09-17-2024 End: 09-17-2024 ambulatory No Primary Care Physician [facility] Start: 09-13-2024 Non-patient / Non-visit Earline Andrade CNM -[facility] Start: 09-13-2024 End: 09-13-2024 ambulatory No Primary Care Physician -[facility] Start: 09-13-2024 End: 09-13-2024 Patient encounter procedure Earline Andrade CNM -[facility] Work Phone: Start: 09-10-2024 End: 09-10-[address] Rhina Sweeney DO -[facility] Work Phone: Start: 09-10-2024 End: 09-10-2024 ambulatory No Primary Care Physician -[facility] Start: 09-02-2024 End: 09-02-[address] Rhina Sweeney DO -[facility] Work Phone: Start: 09-02-2024 End: 09-02-2024 ambulatory No Primary Care Physician -[facility] Start: 08-26-2024 ambulatory No Primary Car e Physician Facility:[facility] Start: 08-26-2024 Non-patient / Non-visit Earline Andrade CNM -[facility] Start: 08-26-2024 End: 08-26-[address] Maris Aragon MD -[facility] Work Phone: Start: 08-26-2024 End: 08-26-2024 ambulatory No Primary Care Physician -[facility] Start: 08-21-2024 End: 08-21-2024 ambulatory No Primary Care Physician -[facility] Start: 08-21-2024 End: 08-21-2024 Patient encounter procedure Shea Rodriguez BANK PRESIDENT-C -[facility]ound [facility] Work Phone: Start: 08-21-2024 End: 08-21-2024 ambulatory Shea Rodriguez BANK PRESIDENT Facility:[facility] Start: 08-19-2024 End: 08-19-[address] Rhina Sweeney DO -[facility] Work Phone: Start: 08-19-2024 End: 08-19-2024 ambulatory No Primary Care Physician [facility] Start: 08-12-2024 End: 08-12-[address] Rhina Sweeney DO -[facility] Work Phone: Start: 08-12-2024 End: 08-12-2024 ambulatory No Primary Care Physician Facility:[facility] Start: 07-30-2024 End: 07-30-2024 Patient encounter procedure Shea Rodriguez BANK PRESIDENT-C -[facility] Work Phone: Start: 07-30-2024 End: 07-30-2024 ambulatory No Primary Care Physician [facility] Work Phone: Start: 07-22-2024 End: 07-22-2024 ambulatory No Primary Care Physician [facility] Work Phone: Start: 07-22-2024 End: 07-22-2024 Patient encounter procedure Shea Hartford BANK PRESIDENT-C -Ultrasound [facility] Work Phone: Start: 07-22-2024 End: 07-22-2024 ambulatory Shea Jennifer BANK PRESIDENT Facility:[facility] Start: 07-16-2024 End: 07-16-2024 Patient encounter procedure Shea Rodriguez BANK PRESIDENT-C -[facility] Work Phone: Start: 07-16-2024 End: 07-16-2024 ambulatory No Primary Care Physician [facility] Work Phone: Start: 07-03-2024 End: 07-03-2024 ambulatory No Primary Care Physician [facility] Work Phone: Start: 07-03-2024 End: 07-03-[address] Rhina Sweeney DO -Laboratory Work Phone: Start: 07-03-2024 End: 07-03-2024 ambulatory No Primary Care Physician Facility:[facility] Start: 06-24-2024 End: 06-24-[address] Rhina Sweeney DO -[facility] Work Phone: Start: 06-24-2024 End: 06-24-2024 ambulatory No Primary Care Physician [facility] Work Phone: Start: 06-24-2024 End: 06-24-2024 ambulatory Earline Andrade Facility:[facility] Start: 05-29-2024 End: 05-29-2024 Patient encounter procedure Earline UP -[facility] Start: 05-29-2024 End: 05-29-2024 ambulatory No Primary Care Physician Facility:[facility] Start: 05-23-2024 End: 05-23-2024 ambulatory TIMOTEO GUERRERO [facility] Start: 05-07-2024 End: 05-07-2024 ambulatory MARIS ARAGON [facility] Start: 05-02-2024 End: 05-02-2024 Patient encounter procedure Shea Rodriguez BANK PRESIDENT-C -[facility] Work Phone: Start: 05-02-2024 End: 05-02-2024 ambulatory Shea Rodriguez BANK PRESIDENT Facility:[facility] Start: 04-02-2024 End: 04-02-[address] Maris Aragon MD -[facility] Work Phone: Start: 04-02-2024 End: 04-02-2024 ambulatory Laura GABRIEL Work Phone: [facility] Work Phone: Start: 04-02-2024 End: 04-02-2024 ambulatory Earline Andrade Facility:[facility] Start: 03-01-2024 End: 03-01-2024 Patient encounter procedure Earline Andrade CNCm -[facility] Work Phone: Start: 03-01-2024 End: 03-01-2024 Patient encounter procedure Earline Andrade CNM -[facility] Work Phone: Start: 03-01-2024 End: 03-01-2024 ambulatory No Primary Care Physician Facility:[facility] Start: 03-01-2024 End: 03-01-2024 ambulatory No Primary Care Physician Facility:[facility] Start: 12-25-2023 End: 12-25-2023 Patient encounter procedure Laura GABRIEL -[facility] Work Phone: Start: 12-25-2023 End: 12-25-2023 Patient encounter procedure Laura GABRIEL -[facility] Start: 12-25-2023 End: 12-25-2023 Patient encounter status Laura GABRIEL [facility] Start: 12-25-2023 End: 12-25-2023 ambulatory Laura Lechuga Facility:[facility] Start: 12-25-2023 End: 12-25-2023 ambulatory No Primary Care Physician Facility:[facility] Procedures Date Procedure Procedure Detail [...] HCV Quant by PCR testing - HCVPCR #[id number] Non Reactive: < 0.8 Equivocal: >/= 0.8 to < 1.0 Reactive: >/= 1.0The [facility] requires that a reactive/equivocal HCV antibody result be sent out for confirmation. HCV Quant by PCR testing. Start: 04-02-2024 Procedure No Primary Care Physician Start: 03-01-2024 Urine culture Laura AVENDANOC Work Phone: Plan of Treatment Date Care Activity Detail Author Start: 09-13-2024 Biophysical profile panel [facility] Start: 09-13-2024 Ultrasonography for biophysical profile without non-stress testing OB Biophysical Prof W/O NST [facility] Start: 09-13-2024 Nonstress test [facility] Start: 09-13-2024 Obstetric monitoring [facility] Start: 09-13-2024 [facility] Start: 09-13-2024 Vital signs measurements [facility] Start: 09-13-2024 Patient discharge [facility] Start: 08-26-2024 Bacteria identified in Urine by Culture Urine Culture [facility] Start: 08-26-2024 Group B Streptococcus Culture Group B Streptococcus Culture [facility] Start: 08-26-2024 [facility] Start: 08-26-2024 Nonstress test [facility] Start: 08-26-2024 Biophysical profile panel [facility] Start: 08-26-2024 Obstetric monitoring [facility] Start: 08-26-2024 Ultrasonography for biophysical profile without non-stress testing OB Biophysical Prof W/O NST [facility] Start: 08-26-2024 Vital signs measurements [facility] Start: 08-26-2024 End: 08-26-2024 [facility] Start: 08-26-2024 Patient discharge [facility] Start: 06-24-2024 CBC W Auto Differential panel - Blood [facility] Start: 06-24-2024 Measurement of glucose 2 hours after glucose challenge for glucose tolerance test [facility] Start: 06-24-2024 Serologic test for syphilis [facility] Start: 06-24-2024 [facility] Beta-hemolytic Streptococcus culture [facility] Erythrocyte mean corpuscular volume determination [facility] Biophysical pr ofile panel US [facility] Hematocrit [Volume Fraction] of Blood [facility] Hemoglobin [Mass/vol ume] in Blood [facility] Leukocytes [#/volume ] in Blood [facility] Mean corpuscular hemoglobin concentration determination [facility] Mean corpuscular hemoglobin determination [facility] Neutrophil count [facility] Neutrophil percent differential count [facility] Patient Education Kick Counts ED False Labor OB Triage: Return to Hospital or Notify Physician if you Experience: [facility] Work Phone: Platelets [#/volume] in Blood [facility] Red blood cell count [facility] Red cell distributio n width determination [facility] Ultrasound scan for growth [facility] Ultrasound scan for growth [facility] Urine culture [facility] Immunizations Immunization Date Immunization Notes Care Provider Fa cility 07-16-2024 tetanus toxoid, redu geneva diphtheria toxoid, and acellular pertussis vaccine, adsorbed No Primary Care Physician [facility] Payers Date Payer Category Payer Self-pay 2023 Unknown [id number] 1990 Unknown [id number] 2.16. [id number] 1990 Unknown [id number] 2.16. 840.1.781192.3.579.2.479 1990 Unknown [id number] 2.16. 840.1.322812.3.579.2.479 Unknown [id number] 2.16.8 40.1.147794.3.579.2.462 Unknown [id number] 2.16.8 40.1.227318.3.579.2.462 Unknown [id number] 2.16.8 40.1.887103.3.579.2.462 Unknown [id number] 2.16.8 40.1.155257.3.579.2.462 Unknown [id number] 2.16.8 40.1.533557.3.579.2.462 Unknown [id number] 2.16.8 40.1.585977.3.579.2.462 Unknown [id number] 2.16.8 40.1.262393.3.579.2.462 Unknown [id number] 2.16.8 40.1.202398.3.579.2.462 Unknown [id number] 2.16.8 40.1.554799.3.579.2.462 Unknown [id number] 2.16.8 40.1.372938.3.579.2.462 Unknown [id number] 2.16.8 40.1.353714.3.579.2.462 Unknown [id number] 2.16.8 40.1.130265.3.579.2.462 Unknown [id number] 2.16.8 40.1.778101.3.579.2.462 Unknown [id number] 2.16.8 40.1.540820.3.579.2.462 Unknown [id number] 2.16.8 40.1.174233.3.579.2.462 Unknown [id number] 2.16.8 40.1.056029.3.579.2.462 Unknown [id number] 2.16.8 40.1.038983.3.579.2.462 Unknown [id number] 2.16.8 40.1.216538.3.579.2.462 Unknown [id number] 2.16.8 40.1.569181.3.579.2.462 Unknown [id number] 2.16.8 40.1.823317.3.579.2.462 Unknown [id number] 2.16.8 40.1.185795.3.579.2.462 Unknown [id number] 2.16.8 40.1.375281.3.579.2.462 Unknown [id number] 2.16.8 40.1.093519.3.579.2.462 Unknown [id number] 2.16.8 40.1.428014.3.579.2.462 Unknown [id number] 2.16.8 40.1.483754.3.579.2.462 Unknown [id number] 2.16.8 40.1.201372.3.579.2.462 Unknown [id number] 2.16.8 40.1.150380.3.579.2.462 Unknown [id number] 2.16.8 40.1.350532.3.579.2.462 Social History Date Type Detail Facility Start: 02-23-2024 End: 05-02-2024 Tobacco smoking status KSIS Never smoked tobacco (finding) [facility] Start: 04-14-2024 Sex Male (finding) [facility] Start: 1990 Sex Assigned At Female [facility] Gender Identity Identifies as fe male gender (finding) [facility] Sexual Orientation Heterosexual (finding) [facility] Medical Equipment Procedure Code Equipment [...] note Note Date/Time September 17, 2024 1:56pm [facility] [address], [address] [place] [address] OFFICE VISIT Date of Service: 09/17/24 MR#: [id number] Acct: [id number] Name: SAMEER CABALLERO Rep #: [id number] : 1990 Provider: MARIO Andrade Age/Sex: 34/F Location[place] [facility] Status: Signed Intake Vital Signs 07/16/24 15:29 09/10/24 08:26 09/13/24 16:17 09/17/24 13:22 Height 5 ft 5 in 5 ft 5 in 5 ft 5 in 5 ft 5 in Weight: 314 lb 6 oz BMI 52.3 BP 138/98 H Intake Visit Reasons: 39 wk ob/nst 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: 39wk ob/nst Auth Specialist Required: No Is patient in pain?: No Allergies No Known Allergies Allergy (Verified 09/17/24 13:20) Medications ?Medication ?Instructions ?Recorded ?Confirmed ?Type multivit-min no.71-iron fum 28 cap PO 02/23/24 5 History mg-folate no.1 1 mg-dha 300 mg capsule (PNV-[place]) blood sugar diagnostic (Blood #120 ea 07/03/24 5 Rx Glucose Test strips) blood-glucose meter #1 ea 07/03/24 09/17/24 Rx lancets #100 ea 07/03/24 09/17/24 Rx Last Menstrual Period: 12/21/23 : No PFSH PFSH Medical History Seasonal allergies History of frequent headaches Surgical History [place] teeth extracted Family History Grandmother CVA (cerebral vascular accident) Maternal Diabetes Maternal Grandfather Myocardial infarction, Onset Age: 54 Maternal Social History adopted: No household members: spouse housing: house number of children: 0 current occupational status: employed current occupation: [email or web address] current occupational exposures/hazards: No pets and animals: Yes pets and animals: dog(s) history of recent travel: Yes ([place] & [place] in January) out of state: [...] physical activity do you participate in: none ganesh/yazidism: Jewish seatbelt use: always do you feel safe [...] Symptoms of Preeclampsia, Infant Feeding No , [place] Education and Family Medical Leave or Disability [...] this visit. [place] appropriate handout given. 09/17/24 [id number] <Electronically signed by Earline rutherford CNM> Date _ [facility] Andrade [facility] Signature: Date (if applicable) CC: ~ [facility] Work Phone: 1(309) 777-762708-12-2025 [facility] [address] [place] [address], [address] [place] [address] OFFICE VISIT Date of Service: 09/17/24 MR#: [id number] Acct: [id number] Name: SAMEER CABALLERO Rep #: [id number] : 1990 Provider: MARIO Andrade Age/Sex: 34/F Location: [facility] Status: Signed Intake Vital Signs 07/16/24 15:29 09/10/24 08:26 09/13/24 16:17 09/17/24 13:22 Height 5 ft 5 in 5 ft 5 in 5 ft 5 in 5 ft 5 in Weight: 314 lb 6 oz BMI 52.3 BP 138/98 H Intake Visit Reasons: 39 wk ob/nst 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: 39wk ob/nst Auth Specialist Required: No Is patient in pain?: No Allergies No Known Allergies Allergy (Verified 09/17/24 13:20) Medications ?Medication ?Instructions ?Recorded ?Confirmed ?Type multivit-min no.71-iron fum 28 cap PO 02/23/24 5 History mg-folate no.1 1 mg-dha 300 mg capsule (PNV-[place]) blood sugar diagnostic (Blood #120 ea 07/03/24 5 Rx Glucose Test strips) blood-glucose meter #1 ea 07/03/24 09/17/24 Rx lancets #100 ea 07/03/24 09/17/24 Rx Last Menstrual Period: 12/21/23 : No PFSH PFSH Medical History Seasonal allergies History of frequent headaches Surgical History [place] teeth extracted Family History Grandmother CVA (cerebral vascular accident) Maternal Diabetes Maternal Grandfather Myocardial infarction, Onset Age: 54 Maternal Social History adopted: No household members: spouse housing: house number of children: 0 current occupational status: employed current occupation: [email or web address] current occupational exposures/hazards: No pets and animals: [...] physical activity do you participate in: none ganesh/yazidism: Jewish seatbelt use: always do you feel safe [...] and Symptoms of Preeclampsia, Feeding No , [place] Education and Family Medical Leave or Disability [...] Acevedo Signature: Date (if applicable) CC: ~ [facility] [id number] [facility] [address] [place] [address], [address] [place] [address] OFFICE VISIT Date of Service: 09/10/24 MR#: [id number] Acct: [id number] Name: SAMEER CABALLERO Rep #: [id number] : 1990 Provider: Dr. Madeline Sweeney, DO Age/Sex: 34/F Location: [facility] Status: Signed Intake Vital Signs 07/16/24 15:29 09/02/24 08:49 09/10/24 08:25 09/10/24 08:26 Height 5 ft 5 in 5 ft 5 in 5 ft 5 in 5 ft 5 in Weight: 311 lb 7 oz BMI 51.8 BP 139/88 H Intake Visit Reasons: 38 wk ob/nst Auth Specialist Required: No Is patient in pain?: No Allergies No Known Allergies Allergy (Verified 09/10/24 08:25) Medications ?Medication ?Instructions ?Recorded ?Confirmed ?Type multivit-min no.71-iron fum 28 cap PO 02/23/24 5 History mg-folate no.1 1 mg-dha 300 mg capsule (PNV-[place]) blood sugar diagnostic (Blood #120 ea 07/03/24 5 Rx Glucose Test strips) blood-glucose meter #1 07/03/24 09/10/24 Rx lancets #100 07/03/24 09/10/24 Rx Last Menstrual Period: 12/21/23 Zika: Zika virus screening: Negative : No PFSH PFSH Medical History Seasonal allergies History of frequent headaches Surgical History [place] teeth extracted Family History Grandmother CVA (cerebral vascular accident) Maternal Diabetes Maternal Grandfather Myocardial infarction, Onset Age: 54 Maternal Social History adopted: No household members: spouse housing: house number of children: 0 current occupational status: employed current occupation: [email or web address] current occupational exposures/hazards: No pets and animals: [...] physical activity do you participate in: none ganesh/yazidism: Jewish seatbelt use: always do you feel safe [...] 140 0.5 -?-?-?-?-?-?-?-?-?-?-?-?- JV- growth scan with [facility] can not be done prior to [...] Symptoms of Preeclampsia, Infant Feeding No , [place] Education and Family Medical Leave or Disability [...] Hospital Signature: Date (if applicable) CC: ~ [facility]07-28-2025 [facility] [address] [place] [address], [address] [place] [address] OFFICE VISIT Date of Service: 09/02/24 MR#: [id number] Acct: [id number] Name: SAMEER CABALLERO Rep #: [id number] : 1990 Provider: Dr. Madeline Sweeney, DO Age/Sex: 34/F Location: [facility] Status: Signed Intake Vital Signs 07/16/24 15:29 08/26/24 09:49 09/02/24 08:49 09/02/24 08:49 Height 5 ft 5 in 5 ft 5 in 5 ft 5 in 5 ft 5 in Weight: 300 lb 8 oz BMI 50.0 BP 132/87 H Intake Visit Reasons: 37 wk ob/nst Auth Specialist Required: No Is patient in pain?: No Allergies No Known Allergies Allergy (Verified 09/02/24 08:49) Medications ?Medication ?Instructions ?Recorded ?Confirmed ?Type multivit-min no.71-iron fum 28 cap PO 02/23/24 5 History mg-folate no.1 1 mg-dha 300 mg capsule (PNV-[place]) blood sugar diagnostic (Blood #120 ea 07/03/24 5 Rx Glucose Test strips) blood-glucose meter #1 ea 07/03/24 09/02/24 Rx lancets #100 ea 07/03/24 09/02/24 Rx Last Menstrual Period: 12/21/23 Zika: Zika virus screening: Negative : No PFSH PFSH Medical History Seasonal allergies History of frequent headaches Surgical History [place] teeth extracted Family History Grandmother CVA (cerebral vascular accident) Maternal Diabetes Maternal Grandfather Myocardial infarction, Onset Age: 54 Maternal Social History adopted: No household members: spouse housing: house number of children: 0 current occupational status: employed current occupation: [email or web address] current occupational exposures/hazards: No pets and animals: [...] physical activity do you participate in: none ganesh/yazidism: Jewish seatbelt use: always do you feel safe [...] Seasonal allergies J30.2 CPT Codes Non-Stress Test (88422) Assessment and Plan Assessment and Plan (1) [...] Cosigner Signature: Date (if applicable) CC: ~ [facility]07-21-2025 Progress note [facility] Medical Records Department [address] [place] [address] OB Triage Progress Note 08/26/24 1149 MR#: [id number] Acct: [id number] Name: SAMEER CABALLERO Rep #:[id number] : 1990 34 From: Earline Andrade CNM PCP: Care Physician,No Primary Status :REG CLI Y DOS: Location: [place] [address] Progress Notes Date of Service: 08/26/24 Progress Note: Patient presents for triage evaluation secondary to non reactive NST in the office at 35 weeks FHT: 140 Moderate variability reactive no decelerations category I tracing Wrens: irregular Contractions Assessment and plan: BPP 8/, Reactive NST, reassuring maternal and statuspatient discharged to home to follow-up in office at next appt. See problem list details for additional plan information. Laboratory Studies: Laboratory Tests 08/26/24 Range/Units 10:00 Urine Color Yellow (Yellow) Urine Clarity Cloudy (Clear) Urine pH 7.0 (5.0 - 8.0) Ur Specific Sawyer 1.015 (1.002-1.030) Urine Protein 15 H (Negative) mg/dl Urine Glucose (UA) Normal (Normal) mg/dl Urine Ketones Negative (Negative) mg/dl Urine Occult Blood Negative (Negative) /ul Urine Nitrite Negative (Negative) Urine Bilirubin Negative (Negative) mg/dL Urine Urobilinogen Normal (Normal) mg/dl Ur Leukocyte Esterase 25 H (Negative) /ul Charges/Coding Multi Select Codes Urinary/Genital Urinary/Genital CPT Codes: 29585-81 non-stress test Interp Assessment & Plan (1) [...] Andrade; No Primary Care Physician ~ Signed [facility]07-16-2025 Radiology Diagnostic study note [facility] Imaging Services [address] [place] [address] [id number] OB Limited With Biometrics MR#: [id number] Acct: [id number] Name: SAMEER CABALLERO Rep #: [id number] : 1990 F 34 From: Armani Jalloh MD PCP: Care Physician,No Primary Status: REG CLI Study:OB Limited With Biometrics Date of Exam : 08/21/24 Exam# [id number] Ordering Dr: Shea Rodriguez BANK PRESIDENT BANK PRESIDENT-C PROCEDURE: OB LIMITED WITH BIOMETRICS 08/21/2024 REASON [...] with the normal expected range. Reading Location: [place] [address] CC: BANK PRESIDENT-C Shea Rodriguez; No Primary Care Physician ~ Oiler Helper: Signed [facility]06-17-2025 Radiology Diagnostic study note [facility] Imaging Services [address] [place] [id number] OB Limited With Biometrics MR#: [id number] Acct: [id number] Name: SAMEER CABALLERO Rep #: [id number] : 1990 F 34 From: Armani Jalloh MD PCP: Care Physician,No Primary Status: REG CLI Study:OB Limited With Biometrics Date of Exam : 07/22/24 Exam# [id number] Ordering Dr: Shea Rodriguez NP BANK PRESIDENT-Ronnie PROCEDURE: OB LIMITED WITH BIOMETRICS 07/22/2024 REASON [...] of 33 weeks and 0days. Reading Location: [place] [address] CC: NERY Rodriguez; No Primary Care Physician ~ Oiler Helper: Signed [facility]05-19-2025 Progress [facility]'s [address], [address] [place] [address] OFFICE VISIT Date of Service: 06/24/24 MR#: [id number] Acct: [id number] Name: SAMEER CABALLERO Rep #: [id number] : 1990 Provider: Dr. Madeline Sweeney DO Age/Sex: 34/F Location: [facility] Status: Signed Intake Vital Signs 05/02/24 08:23 05/02/24 08:39 05/29/24 07:31 06/24/24 15:31 06/24/24 15:33 Height 5 ft 5 in 5 ft 5 in 5 ft 5 in 5 ft 5 in 5 ft 5 in Weight: 291 lb 4 oz BMI 48.4 BP 127/83 H Intake Visit Reasons: 27wk ob/glucose Auth Specialist Required: No Is patient in pain?: No Allergies No Known Allergies Allergy (Verified 06/24/24 15:31) Medications ?Medication ?Instructions ?Recorded ?Confirmed ?Type multivit-min no.71-iron fum 28 cap PO 02/23/24 5 History mg-folate no.1 1 mg-dha 300 mg capsule (PNV-[place]) Last Menstrual Period: 12/21/23 Zika: Zika virus screening: Negative : No PFSH PFSH Medical History Seasonal allergies History of frequent headaches Surgical History [place] teeth extracted Family History Grandmother CVA (cerebral vascular accident) Maternal Diabetes Maternal Grandfather Myocardial infarction, Onset Age: 54 Maternal Social History adopted: No household members: spouse housing: house number of children: 0 current occupational status: employed current occupation: [email or web address] current occupational exposures/hazards: No pets and animals: [...] physical activity do you participate in: none ganesh/yazidism: Jewish seatbelt use: always do you feel safe [...] Garland Signature: Date (if applicable) CC: ~ [facility]05-19-2025 Progress note Author Rhina Murcia [facility] Note Date/Time June 24, 2024 3:50p m [facility] [address], [address] [place] [address] OFFICE VISIT Date of Service: 06/24/24 MR#: [id number] Acct: [id number] Name: SAMEER CABALLERO Rep #: [id number] : 1990 Provider: Dr. Madeline Sweeney DO Age/Sex: 34/F Location[place] [facility] Status: Signed Intake Vital Signs 05/02/24 08:23 05/02/24 08:39 05/29/24 07:31 06/24/24 15:31 06/24/24 15:33 Height 5 ft 5 in 5 ft 5 in 5 ft 5 in 5 ft 5 in 5 ft 5 in Weight: 291 lb 4 oz BMI 48.4 BP 127/83 H Intake Visit Reasons: 27wk ob/glucose Auth Specialist Required: No Is patient in pain?: No Allergies No Known Allergies Allergy (Verified 06/24/24 15:31) Medications ?Medication ?Instructions ?Recorded ?Confirmed ?Type multivit-min no.71-iron fum 28 cap PO 02/23/24 5 History mg-folate no.1 1 mg-dha 300 mg capsule (PNV-[place]) Last Menstrual Period: 12/21/23 Zika: Zika virus screening: Negative : No PFSH PFSH Medical History Seasonal allergies History of frequent headaches Surgical History [place] teeth extracted Family History Grandmother CVA (cerebral vascular accident) Maternal Diabetes Maternal Grandfather Myocardial infarction, Onset Age: 54 Maternal Social History adopted: No household members: spouse housing: house number of children: 0 current occupational status: employed current occupation: [email or web address] current occupational exposures/hazards: No pets and animals: [...] physical activity do you participate in: none ganesh/yazidism: Jewish seatbelt use: always do you feel safe [...] and Symptoms of Preeclampsia, Feeding No , [place] Education and Family Medical Leave or Disability [...] Cosigner Signature: Date (if applicable) CC: ~ [facility] Work Phone: 1([phone]) 170-690204-23-2025 Evaluation note* Diagnosis Onset Date Resolution Status [...] of high-risk acute September 02, 2024 8:33am [facility] Work Phone: 1([phone]) 743-431404-23-2025 Evaluation note* Diagnosis Onset Date Resolution Status [...] of high-risk acute September 10, 2024 8:15am [facility] Work Phone: [phone]) 692-769804-23-2025 Evaluation note* Diagnosis Onset Date Resolution Status [...] Supervision of high-risk acute September 17 1:17pm [facility] Work Phone: 1([phone]) 977-754903-27-2025 Evaluation note* Diagnosis Onset Date Resolution Status [...] high-risk acute August 19, 2024 8:32am [facility] Work Phone: 1([phone]) 992-804703-27-2025 Evaluation note* Diagnosis Onset Date Resolution Status [...] of high-risk acute August 26, 2024 8:38am [facility] Work Phone: [phone] 164-706403-27-2025 Evaluation note* Diagnosis Onset Date Resolution Status [...] of high-risk acute August 26, 2024 9:37am [facility] Work Phone: [phone]) [phone] Evaluation note* Diagnosis Onset Date Resolution Status [...] high-risk acute June 24, 2024 3 :30pm [facility] Work Phone: [phone] Evaluation note* Diagnosis Onset Date Resolution Status [...] of high-risk acute July 16, 2024 3:24pm [facility] Work Phone: [phone] Evaluation note* Diagnosis Onset Date Resolution Status [...] of high-risk acute July 16, 2024 3:24pm [facility] Work Phone: [phone] Evaluation note* Diagnosis Onset Date Resolution Status [...] high-risk acute July 30, 2024 8:19am [facility] Work Phone: [phone]) 522-171301-24-2025 Evaluation note* Diagnosis Onset Date Resolution Status [...] acute June 24, 2024 3 :30pm [facility] Work Phone: 1([phone]) 411-359511-18-2024 NotePap Smear Specimen AdequacyNovember 2023 6:44pmComment.Satisfactory for evaluation. Endocervical and/or squamous metaplasticcells (endocervical component)are present.LABRetail Optimization INTERFACED A#[id number] Valley Health SystemComment on above:Satisfactory for evaluation. Endocervical and/or squamous [...] Supervision of high-risk acute April 02, 9:16am [facility] Work Phone: Progress note Author Earline Andrade [facility] Note Date/Time August 26, 2024 11:5 1am [facility] Medical Records Department [address] [place] [address] OB Triage Progress Note 08/26/24 1149 MR#: [id number] Acct: [id number] Name: SAMEER CABALLERO Rep #:[id number] : 1990 34 From: Earline Andrade CNM PCP: Care Physician,No Primary Status :REG CLI Y DOS: Location: [place] [address]-1 Progress Notes Date of Service: 08/26/24 Progress Note: Patient presents for triage evaluation secondary to non reactive NST in the office at 35 weeks FHT: 140 Moderate variability reactive no decelerations category I tracing Wrens: irregular Contractions Assessment and plan: BPP 09/13, Reactive NST, reassuring maternal and statuspatient discharged to home to follow-up in office at next appt. See problem list details for additional plan information. Laboratory Studies: Laboratory Tests 08/26/24 Range/Units 10:00 Urine Color Yellow (Yellow) Urine Clarity Cloudy (Clear) Urine pH 7.0 (5.0 - 8.0) Ur Specific Sawyer 1.015 (1.002-1.030) Urine Protein 15 H (Negative) mg/dl Urine Glucose (UA) Normal (Normal) mg/dl Urine Ketones Negative (Negative) mg/dl Urine Occult Blood Negative (Negative) /ul Urine Nitrite Negative (Negative) Urine Bilirubin Negative (Negative) mg/dL Urine Urobilinogen Normal (Normal) mg/dl Ur Leukocyte Esterase 25 H (Negative) /ul Charges/Coding Multi Select Codes Urinary/Genital Urinary/Genital CPT Codes: 27105-97 non-stress test Interp Assessment & Plan (1) [...] Andrade; No Primary Care Physician ~ Signed [facility] Work Phone: Progress note Author Rhina Murcia [facility] Note Date/Time September 02, 2024 10:0 5am [facility] [address], [address] [place] [address] OFFICE VISIT Date of Service: 09/02/24 MR#: [id number] Acct: [id number] Name: SAMEER CABALLERO Rep #: [id number] : 1990 Provider: Dr. Madeline Sweeney DO Age/Sex: 34/F Location: [facility] Status: Signed Intake Vital Signs 07/16/24 15:29 08/26/24 09:49 09/02/24 08:49 09/02/24 08:49 Height 5 ft 5 in 5 ft 5 in 5 ft 5 in 5 ft 5 in Weight: 300 lb 8 oz BMI 50.0 BP 132/87 H Intake Visit Reasons: 37 wk ob/nst Auth Specialist Required: No Is patient in pain?: No Allergies No Known Allergies Allergy (Verified 09/02/24 08:49) Medications ?Medication ?Instructions ?Recorded ?Confirmed ?Type multivit-min no.71-iron fum 28 cap PO 02/23/24 5 History mg-folate no.1 1 mg-dha 300 mg capsule (PNV-[place]) blood sugar diagnostic (Blood #120 ea 07/03/24 5 Rx Glucose Test strips) blood-glucose meter #1 ea 07/03/24 09/02/24 Rx lancets #100 ea 07/03/24 09/02/24 Rx Last Menstrual Period: 12/21/23 Zika: Zika virus screening: Negative : No PFSH PFSH Medical History Seasonal allergies History of frequent headaches Surgical History [place] teeth extracted Family History Grandmother CVA (cerebral vascular accident) Maternal Diabetes Maternal Grandfather Myocardial infarction, Onset Age: 54 Maternal Social History adopted: No household members: spouse housing: house number of children: 0 current occupational status: employed current occupation: [email or web address] current occupational exposures/hazards: No pets and animals: [...] physical activity do you participate in: none ganesh/yazidism: Jewish seatbelt use: always do you feel safe [...] Seasonal allergies J30.2 CPT Codes Non-Stress Test (70237) Assessment and Plan Assessment and Plan (1) [...] Cosigner Signature: Date (if applicable) CC: ~ [facility] Work Phone: Progress note Author Rhina Murcia [facility] Note Date/Time September 10, 2024 9:[address] [place] [address] Women[facility] [address] [place] [address], [address] [place] [address] OFFICE VISIT Date of Service: 09/10/24 MR#: [id number] Acct: [id number] Name: SAMEER CABALLERO Rep #: [id number] : 1990 Provider: Dr. Madeline Sweeney DO Age/Sex: 34/F Location: [facility] Status: Signed Intake Vital Signs 07/16/24 15:29 09/02/24 08:49 09/10/24 08:25 09/10/24 08:26 Height 5 ft 5 in 5 ft 5 in 5 ft 5 in 5 ft 5 in Weight: 311 lb 7 oz BMI 51.8 BP 139/88 H Intake Visit Reasons: 38 wk ob/nst Auth Specialist Required: No Is patient in pain?: No Allergies No Known Allergies Allergy (Verified 09/10/24 08:25) Medications ?Medication ?Instructions ?Recorded ?Confirmed ?Type multivit-min no.71-iron fum 28 cap PO 02/23/24 5 History mg-folate no.1 1 mg-dha 300 mg capsule (PNV-[place]) blood sugar diagnostic (Blood #120 ea 07/03/24 5 Rx Glucose Test strips) blood-glucose meter #1 kimi 07/03/24 09/10/24 Rx lancets #100 kimi 07/03/24 09/10/24 Rx Last Menstrual Period: 12/21/23 Zika: Zika virus screening: Negative : No PFSH PFSH Medical History Seasonal allergies History of frequent headaches Surgical History [place] teeth extracted Family History Grandmother CVA (cerebral vascular accident) Maternal Diabetes Maternal Grandfather Myocardial infarction, Onset Age: 54 Maternal Social History adopted: No household members: spouse housing: house number of children: 0 current occupational status: employed current occupation: [email or web address] current occupational exposures/hazards: No pets and animals: [...] physical activity do you participate in: none ganesh/yazidism: Jewish seatbelt use: always do you feel safe [...] 140 0.5 -?-?-?-?-?-?-?-?-?-?-?-?- JV- growth scan with [facility] can not be done prior to [...] and Symptoms of Preeclampsia, Feeding No , [place] Education and Family Medical Leave or Disability [...] Cosigner Signature: Date (if applicable) CC: ~ [facility] Work Phone: Reason for referral (narrative)No reason for referral information availableWBlanchard Valley Health System Work Phone: 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 and Reason for Visit 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 Admit Date 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 25, 2023 7:33am PAP December 25, [...] 2 :07pm Supervision of normal first Ja [facility] 2024 2:07pm HPV in female April 02, [...] End: July 16, 2024 Shea Rodriguez NP, BANK PRESIDENT-C Attending Provider Active Start: July 16, 2024 End: July 16, 2024 Team Status: Inactive Member Role Status Dates No Primary Care Physician Primary Care Provider Active Start: July 22, 2024 End: July 22, 2024 Shea Rodriguez BANK PRESIDENT, BANK PRESIDENT-C Attending Provider Active Start: July 22, 2024 End: July 22, 2024 Shea Rodriguez BANK PRESIDENT, BANK PRESIDENT-C Referring Provider Active Start: July 22, 2024 End: July 22, 2024 Team Status: Inactive Member Role Status Dates No Primary Care Physician Primary Care Provider Active Start: July 30, 2024 End: July 30, 2024 No Primary Care Physician Referring Provider Active Start: July 30, 2024 End: July 30, 2024 Shea Rodriguez BANK PRESIDENT, BANK PRESIDENT-C Attending Provider Active Start: July 30, 2024 [...] 2024 End: May 02, 2024 Shea Rodriguez BANK PRESIDENT, BANK PRESIDENT-C Attending Provider Active Start: May 02, 2024 [...] 2024 End: July 16, 2024 Shea Rodriguez BANK PRESIDENT, BANK PRESIDENT-C Attending Provider Active Start: July 16, 2024 End: July 16, 2024 Team Status: Inactive Member Role/Relationship Status Dates No Primary Care Physician Primary Care Provider Active Start: July 22, 2024 End: July 22, 2024 Shea Rodriguez BANK PRESIDENT, BANK PRESIDENT-C Attending Provider Active Start: July 22, 2024 End: July 22, 2024 Shea Rodriguez BANK PRESIDENT, BANK PRESIDENT-C Referring Provider Active Start: July 22, 2024 End: July 22, 2024 Team Status: Inactive Member Role/Relationship Status Dates No Primary Care Physician Primary Care Provider Active Start: July 30, 2024 End: July 30, 2024 No Primary Care Physician Referring Provider Active Start: July 30, 2024 End: July 30, 2024 Shea Rodriguez BANK PRESIDENT, BANK PRESIDENT-C Attending Provider Active Start: July 30, 2024 [...] Active Start: August 21, 2024 Shea Rodriguez BANK PRESIDENT, BANK PRESIDENT-C Attending Provider Active Start: August 21, 2024 Shea Rodriguez BANK PRESIDENT, BANK PRESIDENT-C Referring Provider Active Start: August 21, 2024 [...] 2024 End: August 21, 2024 Shea Rodriguez BANK PRESIDENT, BANK PRESIDENT-C Attending Provider Active Start: August 21, 2024 End: August 21, 2024 Shea Rodriguez BANK PRESIDENT, BANK PRESIDENT-C Referring Provider Active Start: August 21, 2024 [...] 2024 End: July 03, 2024 Dr. Rhina Sweeeny , Attending Provider Activ e Start: July [...] 2024 End: July 16, 2024 Shea Rodriguez BANK PRESIDENT, BANK PRESIDENT-C Attending Provider Active Start: July 16, 2024 End: July 16, 2024 Team Status: Inactive Member Role/Relationship Status Dates No Primary Care Physician Primary Care Provider Active Start: July 22, 2024 End: July 22, 2024 Shea Rodriguez BANK PRESIDENT, BANK PRESIDENT-C Attending Provider Active Start: July 22, 2024 End: July 22, 2024 Shea Rodriguez BANK PRESIDENT, BANK PRESIDENT-C Referring Provider Active Start: July 22, 2024 End: July 22, 2024 Team Status: Inactive Member Role/Relationship Status Dates No Primary Care Physician Primary Care Provider Active Start: July 30, 2024 End: July 30, 2024 No Primary Care Physician Referring Provider Active Start: July 30, 2024 End: July 30, 2024 Shea Rodriguez BANK PRESIDENT, BANK PRESIDENT-C Attending Provider Active Start: July 30, 2024 [...] 2024 End: August 21, 2024 Shea Rodriguez BANK PRESIDENT, BANK PRESIDENT-C Attending Provider Active Start: August 21, 2024 End: August 21, 2024 Shea Rodriguez BANK PRESIDENT, BANK PRESIDENT-C Referring Provider Active Start: August 21, 2024 [...] 26, 2024 End: August 26, 2024 Earline Andrdae CNM Attending Provider Active S tart: August [...] section and content) DATE CREATED AUTHOR 09/19/2024 [facility] DATE CREATED AUTHOR AUTHOR'S ORGANIZ ATION 09/19/2024 [facility] FOR RECORDS PERTAINING TO PATIENTS WHO [...] BE BASED ON THE PRIMARY CLINICAL RECORDS. [employer] provides no warranty or guarantee of the accuracy or completeness of information in this document.
[2024-09-20 05:37] LABS: Hematocrit 30.6 % (37-47); Hemoglobin 9.9 g/dL (12.0-15.0); Immature Granulocytes Count 0.050 X10^3/uL (0.0-0.0); Mean Corp Hgb Conc 32.4 g/dL (32-36); Mean Corpuscular Volume 79.7 fL (81-99); Mean Platelet Vol. 10.9 fl (6.2-12.0); NRBC Flagged by Analyzer 0 % (0-5); Platelet Count 251 K/mm3 (150-450); RBC Distribution Width CV 15.4 % (11.6-14.6); RBC Distribution Width SD 44.3 fl (35.1-43.9); Red Blood Count 3.84 M/mm3 (4.2-5.4); White Blood Count 9.9 K/mm3 (4.4-11.0)
[2024-09-20 06:08] LABS: Syphilis Antibodies Nonreactive (Nonreactive)
[2024-09-20] MEDS: Lactated Ringers 1,000 ML 150 ML IV (06:10)
[2024-09-20 06:38] LABS: Creatinine, Urine (random) 36.10 mg/dL (28.00-217.00); Protein, Urine (Random) 7.9 mg/dL (0.0-12.0); Protein:Creat Ratio 219 mg/g CRE (0-200)
--- NOTE | 2024-09-20 07:16 | HP.PCM.OB_ITS ---
HPI - General General Date of Admission: 09/20/24 HPI Narrative SAMEER CABALLERO, is a 34 y/o @ 39 weeks 1 day who presents to L&D for a primary section due to LGA. Her baby's EFW on monday was 4561 grams and showed the abdominal circumference in the 100th%. She declines trial of labor. We have tested her twice for gestational diabetes and was found to be negative. She has also had some elevated blood pressures during the . Today it is elevated at 140's/90's. She is asymptomatic. Maternal Data Information LORY Calculator Estimated Delivery Date Method Current WG Current Estimate 09/26/24 LMP (Certain) 39w 1d Other Estimates 09/25/24 Ultrasound #1 39w 2d PFSH PFS Medical History Seasonal allergies History of frequent headaches Home Medications ?Medication ?Instructions ?Recorded ?Last Taken ?Type blood sugar diagnostic (Blood #120 ea 07/03/24 Unknown Rx Glucose Test strips) blood-glucose meter #1 ea 07/03/24 Unknown Rx lancets #100 ea 07/03/24 Unknown Rx Allergy/AdvReac Type Severity Reaction Status Date / Time No Known Allergies Allergy Verified 09/20/24 05:05 Family History Grandmother CVA (cerebral vascular accident) Maternal Diabetes Maternal Grandfather Myocardial infarction, Onset Age: 54 Maternal Surgical History [place] teeth extracted Social History adopted: No household members: spouse housing: house number of children: 0 current occupational status: employed current occupation: [employer] current occupational exposures/hazards: No pets and animals: Yes pets and animals: dog(s) history of recent travel: Yes ([place] & [place] in January) out of state: Yes out of country: No sexually active: Yes Smoking Status: Never smoker alcohol intake: current alcohol intake frequency: other details: once a month- not while substance use type: does not use well-balanced diet: about half the time caffeine: No eating out: 1-3 times/week during the past year weight has: remained stable what type of physical activity do you participate in: none ganesh/orthodoxy: Holiness seatbelt use: always do you feel safe at home: Yes additional social history: - Mc - hankins History 1 Elective abortions Hx Para 0 Spontaneous abortions Hx # Term Pregnancies Ectopic pregnancies Hx # Pregnancies Multiple births # of living children Visit Details Expected Delivery Route/Plan Labor Preferences- CB/BF classes: scheduled labor support person: Mc labor intervention preferences: open to epidural pain management options preferred: cut cord/dad catch: cord : yes PP control planned: discussed discussed possible routes of delivery and associated risks: [] special requests: [] Plans Covid status: [] Flu vaccine: [] Tdap vaccine: given Rhogam: na LARC form signed: yes Problem list reviewed and updated with the most current plan of care details and appropriate orders placed. Relevant counseling for the gestational age provided. Continue routine care and follow up unless otherwise noted in visit notes/problem list details OB Flowsheet Initial Weight: 267 lb Date -?-?-?-?-?-?-?-?-?-?-?-?- EGA Weight BP Urine Prot -?-?-?-?-?-?-?-?-?-?-?-?- Glucose FHR FuHt Pres Dilation -?-?-?-?-?-?-?-?-?-?-?-?- Effaced St Visit Note 03/01/24 -?-?-?-?-?-?-?-?-?-?-?-?- 10w 1d 267 lb 2 oz (+2 oz) 137/83 -?-?-?-?-?-?-?-?-?-?-?-?- 172 -?-?-?-?-?-?-?-?-?-?-?-?- KW- CRL cons wit h dates. accepts NIPT. Labs at next appt 04/02/24 -?-?-?-?-?-?-?-?-?-?-?-?- 14w 5d 265 lb 8 oz (-1 lb 8 oz) 133/86 Negative -?-?-?-?-?-?-?-?-?-?-?-?- Negative 155 -?-?-?-?-?-?-?-?-?-?-?-?- Sm- no vb crampi ng labs today 05/02/24 -?-?-?-?-?-?-?-?-?-?-?-?- 19w 0d 278 lb 2 oz (+11 lb 2 oz) 126/84 Negative -?-?-?-?-?-?-?-?-?-?-?-?- Negative 146 -?-?-?-?-?-?-?-?-?-?-?-?- MH-No VB. Nausea resolved. Anatomy US next week 05/29/24 -?-?-?-?-?-?-?-?-?-?-?-?- 22w 6d 285 lb 6 oz (+18 lb 6 oz) 120/80 Negative -?-?-?-?-?-?-?--?-?-?-?-?- Negative 155 22 -?-?-?-?-?-?-?-?-?-?-?-?- KW- no vb/ctx. s ome fm. KW- no vb/ctx. some fm. disc ussed CBE classes. glucose discussed 06/24/24 -?-?-?-?-?-?-?-?-?-?-?-?- 26w 4d 291 lb 4 oz (+24 lb 4 oz) 127/83 Negative -?-?-?-?-?-?-?-?-?-?-?-?- Negative 154 28 -?-?-?-?-?-?-?-?-?-?-?-?- JV- feels dizzy at night on her back. we discussed propping mattress. GCT and 3rd trimester labs today 07/16/24 -?-?-?-?-?-?-?-?-?-?-?-?- 29w 5d 295 lb 4 oz (+28 lb 4 oz) 120/74 Negative -?-?-?-?-?-?-?-?-?-?-?-?- Negative 152 32 -?-?-?-?-?-?-?-?-?-?-?-?- MH-No VB, lof. G ood FM. tdap, larc. Growth US. 07/30/24 -?-?-?-?-?-?-?-?-?-?-?-?- 31w 5d 292 lb (+25 lb) 118/78 Negative -?-?-?-?-?-?-?-?-?-?-?-?- Negative 158 35 -?-?-?-?-?-?-?-?-?-?-?-?- MH-No VB, LOF. G ood Fm. FBS WNL except 2 in 2 weeks. Growth US WNL. rpt 4 wk 08/12/24 -?-?-?-?-?-?--?-?-?-?-?-?- 33w 4d 297 lb 6 oz (+30 lb 6 oz) 130/84 Negative -?-?-?-?-?-?-?-?-?-?-?-?- Negative 140 38 0 -?-?-?-?-?-?-?-?-?-?-?-?- -4 JV- ultr asound due next week. nst reactive. trevon often but cx is closed and she is not feeling them. She did have sex recently. PTL precautions discussed. 08/19/24 -?-?-?-?-?-?-?-?-?-?-?-?- 34w 4d 298 lb 6 oz (+31 lb 6 oz) 126/77 Negative -?-?-?-?-?-?-?-?-?-?-?-?- Negative 140 0.5 -?-?-?-?-?-?-?-?-?-?-?-?- 30 -4 JV- still trevon on the monitor. Today I can almost get my finger through to the head. She feels them less. Plan for gbs next visit incase she goes into labor a little early. 08/26/24 -?-?-?-?-?-?-?-?-?-?-?-?- 35w 4d 303 lb 4 oz (+36 lb 4 oz) 127/84 Negative -?-?-?-?-?-?-?-?-?-?-?-?- Negative 140 -?-?-?-?-?-?-?-?-?-?-?-?- SM- no vb lof go od fm irregular ctx 09/02/24 -?-?-?-?-?-?-?-?-?-?-?-?- 36w 4d 300 lb 8 oz (+33 lb 8 oz) 132/87 Negative -?-?-?-?-?-?-?-?-?-?-?-?- Negative 150 0.5 -?-?-?-?-?-?-?-?-?-?-?-?- -4 JV- fast ing levels are normal, there was one 1 hr pp that was 165. plan is to repeat the growth scan at the beginning of 39 weeks. patient states that if LGA she wants a section over IOL, especially if not a favorable cervix. 09/10/24 -?-?-?-?-?-?-?-?-?-?-?-?- 37w 5d 311 lb 7 oz (+44 lb 7 oz) 139/88 Negative -?-?-?-?-?-?-?-?-?-?-?-?- Negative 140 0.5 -?-?-?-?-?-?-?-?-?-?-?-?- JV- growth scan with [facility] can not be done prior to the . will ask mfm. NST reactive. 09/17/24 -?-?-?-?-?-?-?-?-?-?-?-?- 38w 5d 314 lb 6 oz (+47 lb 6 oz) 138/98 Negative -?-?-?-?-?-?-?-?-?-?-?-?- Negative 145 2 -?-?-?-?-?-?-?-?-?-?-?-?- 60 -2 KW- No vb/ lof/ctx. good fm. Had growth US and BPP today with MFM 09/13. EFW today 4561 grams and >99% AC is 99%. Fasting sugars are 70s-80s. requesting P C/S due to size. ROS Constitutional Constitutional: Denies change in weight, fatigue, fever(s), headache(s), poor appetite or weakness Eyes Eyes: Denies blurry vision, change in vision, seeing flashes or spots in vision ENT HEENT: Denies dizziness, headache(s), loss taste/smell or sore throat Cardiovascular Cardiovascular: Denies chest pain, dizziness, dyspnea, irregular heart rhythm, leg edema, palpitations, rapid heart rate or vomiting Respiratory/Chest Respiratory/Chest: Denies chest tightness, cough, dyspnea or breast pain Gastrointestinal Gastrointestinal: Denies abdominal pain, anorexia, constipation, cramping, diarrhea, hemorrhoids, vomiting or weight changes Genitourinary Genitourinary: Denies dysuria, flank pain, genital lesions, genital pain, urinary frequency or urinary urgency Musculoskeletal Musculoskeletal: Denies back pain, difficulty walking, joint pain, limited range of motion, muscle cramps or numbness Integumentary Integumentary: Denies lesions or unusual bruising Neurologic Neurologic: Denies abnormal movements, abnormal speech, dizziness, numbness, seizure-like activity or syncope Psychiatric Psychiatric: Denies anxiety, behavioral changes, change in appetite, change in libido, cognitive impairment, confusion, depression, difficulty concentrating, hallucinations or suicidal thoughts Endocrine Endocrinology: Denies excessive sweating, polydipsia or polyuria Hematologic/Lymphatic Hematologic/Lymphatic: Denies easy bleeding, easy bruising or lymphadenopathy Allergic/Immunologic Allergic/Immunologic: Denies itchy eyes, lip swelling, seasonal rhinorrhea, rhinitis, throat swelling, tongue swelling, eczemia, wheezing or asthma Vital Signs Vital Signs Vital Signs: 09/20/24 05:18 09/20/24 05:18 09/20/24 05:18 Temperature Temperature Source Temporal Pulse Rate 99 Respiratory Rate Blood Pressure 141/91 H Blood Pressure Mean BP Systolic 141 BP Diastolic 91 Blood Pressure Source Blood Pressure Position Blood Pressure Location Pulse Ox Oxygen Delivery Method 09/20/24 05:18 09/20/24 05:18 09/20/24 05:18 Temperature 97.1 F L Temperature Source Pulse Rate Respiratory Rate 16 Blood Pressure Blood Pressure Mean BP Systolic BP Diastolic Blood Pressure Source Blood Pressure Position Blood Pressure Location Pulse Ox 99 Oxygen Delivery Method 09/20/24 05:18 09/20/24 05:18 09/20/24 05:18 Temperature Temperature Source Temporal Pulse Rate 99 Respiratory Rate Blood Pressure 141/93 H Blood Pressure Mean BP Systolic 141 BP Diastolic 93 Blood Pressure Source Blood Pressure Position Blood Pressure Location Pulse Ox Oxygen Delivery Method 09/20/24 05:18 09/20/24 05:18 09/20/24 05:18 Temperature 97.3 F L Temperature Source Pulse Rate Respiratory Rate 16 Blood Pressure Blood Pressure Mean BP Systolic BP Diastolic Blood Pressure Source Blood Pressure Position Blood Pressure Location Pulse Ox 99 Oxygen Delivery Method 09/20/24 05:20 Temperature 97.3 F L Temperature Source Axillary Pulse Rate 99 Respiratory Rate 16 Blood Pressure 141/93 H Blood Pressure Mean 109 BP Systolic BP Diastolic Blood Pressure Source Monitor Blood Pressure Position Semi-Fowlers Blood Pressure Location Right Arm Pulse Ox 99 Oxygen Delivery Method Room Air Weight Weight: 315 lb Body Mass Index (BMI) 52.4 Physical Exam Const alert, oriented x3, no apparent distress and healthy appearing General Appearance: cooperative; Negative for anxious HEENT normocephalic Face and Sinus: normal facial exam Eyes EOMs intact bilaterally and no scleral icterus General Eye: normal appearance of both eyes Neck full ROM and supple Lymph Lymphatic: no lymphadenopathy noted Resp normal respiratory effort Effort and Inspection: able to speak in complete sentences Cardio regular rate GI soft to palpation and non-tender Inspection: gravid Palpation: soft; Negative for tender Back/Spine no CVA tenderness Extremity normal to inspection, full ROM and no clubbing, cyanosis or edema General Extremity: Negative for calf tenderness or edema Skin Lesions: no lesions Rashes: no rashes Psych mental status grossly normal Labs Labs Labs: Blood Type A POSITIVE Antibody Screen NEGATIVE Hct 30.6 % (37-47) L Hgb 9.9 g/dL (12.0-15.0) L Obstetrics Ultrasound Syphilis Total Ab Nonreactive (Nonreactive) Rubella IgG Antibody REAC (Nonreactive) Hep Bs Antigen Nonreactive (Nonreactive) Hepatitis C Antibody Nonreactive (Nonreactive) Chlamydia DNA (MICAH) Negative (Negative) N.gonorrhoeae DNA (MICAH) Negative (Negative) HIV 1&2 Antibody Nonreactive (Nonreactive) Glucose 1 Hr 50 gm 139 mg/dL (70-140) Gest Glucose Tolerance mg/dL Assessment & Plan (1) LGA (large for gestational age) fetus affecting mother, antepartum: (2) Elevated BP without diagnosis of hypertension: (3) Non-stress test nonreactive: COMMENT: in office BPP 8/8. reactive on WP. d/c home (4) contractions: (5) LGA (large for gestational age) fetus affecting management of mother: COMMENT: Growth US: 97%ile NST wkly at 34 wk. BS daily WNL. discussed R/B/A of IOL at 39 weeks 97th% overall and 100th% for head, start monitoring glucose levels fasting and 2 hour postprandial. Continue weekly NSTs. estimating to be 10 pounds so it was communicated that we may recommend a section if goes all the way to term. early induction is not always recommended as induction could result in the baby getting stuck. If natural labor happens before 40 weeks we can see how it goes. C/S 09/20 JV. (6) Abnormal glucose tolerance test during , antepartum: COMMENT: normal 3 hr, however the fasting was elevated. - monitor at home fasting levels: 2 wk of readings WNL except 2 and states high carb snack night prior. Will continue to monitor (7) Supervision of high-risk : QUALIFIERS: Trimester: third trimester Qualified Code(s): O09.93 - Supervision of high risk , unspecified, third trimester COMMENT: PRR, , LORY 09/26/24, Mc (8) Obesity affecting : QUALIFIERS: Trimester: third trimester Obesity type affecting : unspecified obesity Qualified Code(s): O99.213 - Obesity complicating , third trimester COMMENT: HgbA1c 5.2 , BMI 44. - weekly nsts starting at 34 weeks (9) : QUALIFIERS: Weeks of gestation: 38 weeks Qualified Code(s): Z3A.38 - 38 weeks gestation of COMMENT: GBS neg, NIPT low risk, nl anatomy PLAN: Plan After discussing the patient's diagnosis and treatment plan options, patient wishes to proceed with surgical management. I have discussed with the patient the risks, benefits, and alternatives of the procedure which include but are not limited to risks of anesthesia, bleeding, infection, possible damage to bowel, bladder, or surrounding vasculature which could lead to additional surgery to evaluate any complications. Patient agrees to procedure and wishes to proceed. ACOG/uptodate references given for additional information regarding procedure. plan for 3 grams Ancef and will use Exparel + bupivacaine 0.5% at facial closure due to inability to use Duramorph
[2024-09-20] MEDS: Cefazolin 1 GM/5 ML Vial 3 GM IV (07:20)
--- NOTE | 2024-09-20 07:20 | DCINST_ITS ---
Discharge Instructions DC O2, CPAP, BIPAP needs Home O2 Discharge instructions: No Dressing / Incision Discharge Activity: May Not Drive (for 2 weeks or while taking narcotic pain medications.), May Shower and May Take a Tub Bath (in 7 days.) May resume sexual activity in: 4-6 weeks Weight Bearing Status: Full weight bearing Lifting Restrictions: 20 pounds Dressing / Incision Call your doctor if your incision/area has: Continuous Slow Oozing, Sudden Increased Bleeding, Increased Pain/ Swelling, Increased Redness and Foul Smelling Discharge Call your doctor if you observe: Fever of 101 or Higher and Using more than 1 pad per hour Suture Line Care: Avoid Pulling/Pushing and Avoid Pinching/Bending Cleanse incision/area with: Soap & Water and Keep Dressing Clean & Dry Follow Up Care Please Follow Up With: Rhina Sweeney DO When: Call [phone] to make an appointment for an incision check in 1-2 weeks. Test Results: Test results from this visit will be discussed in further detail at your follow- up appointment, if applicable. Discharge Plan Admission Admit Date/Time: 09/20/24 04:59 Primary Reason for Your Visit: section Attending Provider: Rhina Sweeney Primary Care Provider: Care Physician,Daisy Primary Discharge Orders/Prescriptions Prescriptions: New ibuprofen 800 mg tablet 800 mg PO Q8H PRN (Reason: pain) Qty: 30 0RF oxycodone-acetaminophen [Percocet] 5-325 mg tablet 1 tab PO Q4H PRN (Reason: pain) 7 Days Qty: 20 0RF No Action (DME) Blood Glucose Test Strip See Rx Instructions .MEDSUPPLY Qty: 120 0RF Rx Instructions: As directed-fasting 3-4 times per week (DME) blood-glucose meter Misc See Rx Instructions .MEDSUPPLY Qty: 1 0RF Rx Instructions: As directed- Test fasting 3-4 times per week (DME) lancets Misc See Rx Instructions .MEDSUPPLY Qty: 100 0RF Rx Instructions: As directed-fasting 3-4 times per week Referrals / Follow Up: Care Physician,No Primary [Primary Care Provider] - Disposition Disposition (needs filled in before D/C Order can be placed): Home, Self Care
[2024-09-20 07:37] LABS: AST(SGOT) 21 U/L (<=31); Alanine Aminotransfer ALT/SGPT 11 U/L (<=34); Albumin, Serum 3.3 g/dL (3.5-5.0); Alkaline Phosphatase 157 U/L (35-104); Anion Gap 13 (5-15); BUN 7 mg/dL (4-19); BUN/Creat Ratio 12.0 RATIO (10-20); Calcium,Total 9.0 mg/dL (7.6-11.0); Carbon Dioxide 18.6 mmol/L (21.0-32.0); Chloride 106 mmol/L (98-108); Estimated Creatinine Clearance 207.99 ml/min (50-250); Globulin 1.9 g/dL (2.2-4.2); Glucose 137 mg/dL (70-99); Potassium 3.8 mmol/L (3.3-5.1)
--- NOTE | 2024-09-20 08:24 | EX.PCM.OBRPT ---
Assessment & Plan (1) LGA (large for gestational age) fetus affecting mother, antepartum: (2) Elevated BP without diagnosis of hypertension: (3) Non-stress test nonreactive: COMMENT: in office BPP 09/13. reactive on WP. d/c home (4) Abnormal glucose tolerance test during , antepartum: COMMENT: normal 3 hr, however the fasting was elevated. - monitor at home fasting levels: 2 wk of readings WNL except 2 and states high carb snack night prior. Will continue to monitor (5) Supervision of high-risk : QUALIFIERS: Trimester: third trimester Qualified Code(s): O09.93 - Supervision of high risk , unspecified, third trimester COMMENT: PRR, , LORY 09/26/24, Mc (6) Obesity affecting : QUALIFIERS: Obesity type affecting : unspecified obesity Trimester: third trimester Qualified Code(s): O99.213 - Obesity complicating , third trimester COMMENT: HgbA1c 5.2 , BMI 44. - weekly nsts starting at 34 weeks (7) : QUALIFIERS: Weeks of gestation: 38 weeks Qualified Code(s): Z3A.38 - 38 weeks gestation of COMMENT: GBS neg, NIPT low risk, nl anatomy Maternal Data Information LORY Calculator Estimated Delivery Date Method Current WG Current Estimate 09/26/24 LMP (Certain) 39w 1d Other Estimates 09/25/24 Ultrasound #1 39w 2d Final LORY: 09/26/24 Final LORY Source: LMP Gestational age: 39 weeks 1 day Operative Report (OB) Details Procedure Type: low transverse Date of Procedure: 09/20/24 Procedure Start Time: 07:42 Procedure Stop Time: 08:42 Time of Delivery: 07:49 Pre-Operative Diagnosis: Suspected cephalopelvic disproportion and Other ( macrosomia suspected ) Other Pre-Operative diagnosis: none Post-Operative Diagnosis: Same as Pre-operative diagnosis Classification: Scheduled Type of Anesthesia: Spinal Special Medications: Exparel Antibiotic Given: Ancef 3 grams IV x1 Drain: Fernandez to straight drain Estimated Blood Loss: 700cc Findings Description of surgery: The patient is a 34 y/o @ 39 weeks 1 day with suspected macrosomia. She presented for a primary . The patient was counseled on the benefits and the risks of a trial of labor and she decided that she would like to proceed with a section only. Spinal anesthesia was placed without difficulty. Fernandez catheter was placed. The patient was placed in the dorsal supine position with leftward tilt. Patient was prepped and draped in the normal sterile fashion. Pfannenstiel skin incision was made with the scalpel and carried through to the underlying layer of fascia with the scalpel. Fascia was nicked in the midline and the incision extended laterally. The rectus bellies were dissected off superiorly and inferiorly with out complication both sharply and bluntly. The peritoneum was entered digitally. The incision was stretched and a low transverse uterine incision was made with the scalpel. The infant's head was delivered atraumatically followed by the anterior and posterior shoulders without complication the rest of the delivered. The cord was clamped and cut and the infant was handed off to awaiting nurse. The placenta was delivered spontaneously immediately following and was noted to be intact and have a three-vessel cord. The uterus was exteriorized cleared of all clots and debris, and the incision was closed in a double layer closure using #1 Vicryl and #1 Monocryl. The ovaries and fallopian tubes were noted to be within normal limits. The uterus was returned to the maternal abdomen and gutters were cleared of all clots and debris. The peritoneum was closed with 3-0 Monocryl in a running fashion. Gloves were changed prior to fascial closure. Fascia was closed with 0 PDS in a running fashion. Subcutaneous tissue was copiously irrigated and the skin was closed with 3-0 Monocryl in a subcuticular fashion. Mepilex dressing was applied without complication. Patient was taken to recovery in stable condition. It was discussed with the patient that based on the clinical information obtained during this encounter, combined with her history, at this time I would recommend either tolac or repeat section depending on the size of the next baby for future deliveries if further pregnancies are desired. Surgical findings: viable female infant Leatha, wt: 10 pounds 7 oz, head circumference 15 inches. 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
[2024-09-20] MEDS: Oxytocin 15 Units/NS 250ml 15 UNITS/250 ML IV.SOLN 83 UNITS IV (08:50)
[2024-09-20] MEDS: Ketorolac 30 MG/ML Syringe IV ×3 (09:04→20:33)
[2024-09-20] MEDS: BUPIVACAINE LIPOSOME/PF 20 ML VIAL OPERA.SITE (09:13)
[2024-09-20] MEDS: Senna/Docusate Sodium 1 Tablet PO (11:37)
[2024-09-20] MEDS: Lactated Ringers 1,000 ML 100 ML IV (11:54)
[2024-09-21] VITALS (7 sets, daily range): BP systolic 126–146; BP diastolic 73–90; PULSE 78–95; RESP 16–18; TEMP 36.3–36.8; O2SAT 97–100
[2024-09-21] MEDS: Ketorolac 30 MG/ML Syringe IV (03:04)
[2024-09-21 06:19] LABS: Hematocrit 26.7 % (37-47); Hemoglobin 8.6 g/dL (12.0-15.0); Mean Corp Hgb Conc 32.2 g/dL (32-36); Mean Corpuscular Volume 80.2 fL (81-99); Mean Platelet Vol. 10.8 fl (6.2-12.0); Platelet Count 226 K/mm3 (150-450); RBC Distribution Width CV 15.3 % (11.6-14.6); RBC Distribution Width SD 43.9 fl (35.1-43.9); Red Blood Count 3.33 M/mm3 (4.2-5.4); White Blood Count 13.9 K/mm3 (4.4-11.0)
--- NOTE | 2024-09-21 08:43 | PN.OBGYN_ITS ---
Subjective Subjective Patient doing well without complaints. Tolerating PO. Ambulating and voiding without difficulty. Feeding well. Denies chest pain, shortness of breath, calf pain/swelling, fevers, chills, lightheadedness. Objective Data Objective Data Vital Signs: Vital Signs Temp Pulse Resp BP Pulse Ox O2 Del Method 98.2 F 86 16 138/80 H 100 Room Air 09/21/24 08:10 09/21/24 08:10 09/21/24 08:10 09/21/24 08:10 09/21/24 08:10 09/21/24 08:10 Oxygen Delivery Method Room Air Weight: 315 lb Body Mass Index (BMI) 52.4 Intake & Output: Intake and Output for Last 24 Hours 09/19/24 09/20/24 09/21/24 23:59 23:59 23:59 Intake Total 3294.17 / 3294.17 Output Total 2049 / 2049 500 / 500 Balance 1244.17 / 1244.17 -500 / -500 Lab / Micro Data 09/21/24 06:05 09/20/24 05:07 Labs: Laboratory Results - last 24 hr 09/20/24 09:26: POC Glucose 85 09/21/24 06:05: WBC 13.9 H, RBC 3.33 L, Hgb 8.6 L, Hct 26.7 L, MCV 80.2 L, MCH 25.8 L, MCHC 32.2, RDW Std Deviation 43.9, RDW Coeff of Rosetta 15.3 H, Plt Count 226, MPV 10.8 Physical Exam Const alert and oriented x3 Chest inspection of chest normal Resp normal respiratory effort and normal air movement Cardio regular rate and regular rhythm GI normal to inspection, nondistended, normoactive bowel sounds Uterus Palpation: uterus fundus firm Extremity normal to inspection, full ROM and no calf tenderness Skin no rashes or lesions noted Skin Narrative: dressing c/d/i Psych mental status grossly normal Assessment & Plan (1) Status post section: COMMENT: primary c/s PLAN: Plan s/p LTCS PPD # 1 1. routine post care 2. breast feeding- support given 3. rh positive 4. rubella immune 5. infant with potential for transfer, if occurs safe for early d/c. rx transfered to [facility] pharmacy
[2024-09-21] MEDS: Senna/Docusate Sodium 1 Tablet PO (08:59)
[2024-09-21] MEDS: 0.9% Saline Lock 10 ML Syringe IV (18:17)
[2024-09-22 01:06] VITALS: BP 140/88; PULSE 98; RESP 16; TEMP 36.5; O2SAT 98
[2024-09-22 06:38] VITALS: BP 141/90
[2024-09-22 09:45] VITALS: BP 138/83; PULSE 85; RESP 14; TEMP 36.8; O2SAT 98
--- NOTE | 2024-09-22 10:29 | PCM.PN.OB ---
Subjective Subjective Patient doing well without complaints. Tolerating PO. Ambulating and voiding without difficulty. feeding well. Denies chest pain, shortness of breath, calf pain/swelling, fevers, chills, lightheadedness. Objective Data Objective Data Vital Signs: Vital Signs Temp Pulse Resp BP Pulse Ox O2 Del Method 98.2 F 85 14 138/83 H 98 Room Air 09/22/24 09:45 09/22/24 09:45 09/22/24 09:45 09/22/24 09:45 09/22/24 09:45 09/22/24 09:45 Oxygen Delivery Method Room Air Weight: 315 lb Body Mass Index (BMI) 52.4 Intake & Output: Intake and Output for Last 24 Hours 09/20/24 09/21/24 09/22/24 23:59 23:59 23:59 Intake Total 3294.17 / 3294.17 Output Total 2049 / 2049 500 / 500 Balance 1244.17 / 1244.17 -500 / -500 Lab / Micro Data 09/21/24 06:05 09/20/24 05:07 ROS Constitutional Constitutional: Reports systems reviewed and no addt'l complaints, except as documented Cardiovascular Cardiovascular: Reports systems reviewed and no addt'l complaints, except as documented Respiratory/Chest Respiratory/Chest: Reports systems reviewed and no addt'l complaints, except as documented Gastrointestinal Gastrointestinal: Reports systems reviewed and no addt'l complaints, except as documented Physical Exam Const alert, oriented x3 and no apparent distress HEENT Head and Scalp: atraumatic Resp normal respiratory effort GI soft to palpation and non-tender Inspection: incision intact, healing well and drainage (none) Bimanual Exam - Vag & Uterus: uterus non-tender Uterus Palpation: uterus fundus firm (below Umbilicus) Assessment & Plan (1) Status post section: COMMENT: primary c/s PLAN: Plan s/p LTCS PPD # 2 1. routine post care 2. breast feeding- support given 3. rh positive 4. rubella immune
[2024-09-22 14:18] VITALS: BP 147/78; PULSE 88; RESP 14; TEMP 36.6; O2SAT 99
[2024-09-22] MEDS: 0.9% Saline Lock 10 ML Syringe IV (14:26)
[2024-09-22 20:44] VITALS: BP 150/73; PULSE 81; RESP 16; TEMP 36.4; O2SAT 99
[2024-09-22 21:05] VITALS: BP 150/90
[2024-09-23 02:40] VITALS: BP 145/94; PULSE 88; RESP 16; TEMP 36.9; O2SAT 98
[2024-09-23 06:04] VITALS: BP 142/85
--- NOTE | 2024-09-23 08:14 | PN.OBGYN_ITS ---
Subjective Subjective Patient doing well without complaints. Tolerating PO. Ambulating and voiding without difficulty. Feeding well. Denies chest pain, shortness of breath, calf pain/swelling, fevers, chills, lightheadedness. Objective Data Objective Data Vital Signs: Vital Signs Temp Pulse Resp BP Pulse Ox O2 Del Method 98.5 F 88 16 142/85 H 98 Room Air 09/23/24 02:40 09/23/24 02:40 09/23/24 02:40 09/23/24 06:04 09/23/24 02:40 09/23/24 02:40 Oxygen Delivery Method Room Air Weight: 315 lb Body Mass Index (BMI) 52.4 Intake & Output: Intake and Output for Last 24 Hours 09/21/24 09/22/24 09/23/24 23:59 23:59 23:59 Output Total 500 / 500 Balance -500 / -500 Lab / Micro Data Attestation: I reviewed the patient's lab results. 09/21/24 06:05 09/20/24 05:07 ROS Constitutional Constitutional: Reports systems reviewed and no addt'l complaints, except as documented; Denies anorexia or headache(s) Cardiovascular Cardiovascular: Reports systems reviewed and no addt'l complaints, except as documented; Denies dizziness, dyspnea, nausea or tachypnea Respiratory/Chest Respiratory/Chest: Reports systems reviewed and no addt'l complaints, except as documented; Denies cough, dyspnea, shortness of breath at rest or tachypnea Gastrointestinal Gastrointestinal: Reports systems reviewed and no addt'l complaints, except as documented; Denies abdominal pain, constipation or nausea Genitourinary Genitourinary: Reports systems reviewed and no addt'l complaints, except as documented; Denies burning urination, difficulty urinating, dysuria, urinary frequency or urinary incontinence Musculoskeletal Musculoskeletal: Reports systems reviewed and no addt'l complaints, except as documented Integumentary Integumentary: Reports systems reviewed and no addt'l complaints, except as documented Neurologic Neurologic: Reports systems reviewed and no addt'l complaints, except as documented; Denies abnormal speech, dizziness or headache(s) Psychiatric Psychiatric: Reports systems reviewed and no addt'l complaints, except as documented Endocrine Endocrinology: Reports systems reviewed and no addt'l complaints, except as documented Hematologic/Lymphatic Hematologic/Lymphatic: Reports systems reviewed and no addt'l complaints, except as documented Physical Exam Const alert, oriented x3 and no apparent distress Neck full ROM Resp normal respiratory effort, normal air movement and no retractions Effort and Inspection: able to speak in complete sentences and symmetric chest movement GI soft to palpation Inspection: incision intact Bladder / Kidney Exam: bladder normal to palpation Uterus Palpation: uterus fundus firm Extremity normal to inspection and full ROM Psych mental status grossly normal, thought process normal and cooperative Assessment & Plan (1) Status post section: COMMENT: primary c/s PLAN: s/p LTCS PPD # 2 1. routine post care 2. breast feeding- support given 3. rh positive 4. rubella immune (2) LGA (large for gestational age) fetus affecting mother, antepartum: (3) Elevated BP without diagnosis of hypertension: (4) Non-stress test nonreactive: COMMENT: in office BPP 09/13. reactive on WP. d/c home (5) contractions: (6) LGA (large for gestational age) fetus affecting management of mother: COMMENT: Growth US: 97%ile NST wkly at 34 wk. BS daily WNL. discussed R/B/A of IOL at 39 weeks 97th% overall and 100th% for head, start monitoring glucose levels fasting and 2 hour postprandial. Continue weekly NSTs. estimating to be 10 pounds so it was communicated that we may recommend a section if goes all the way to term. early induction is not always recommended as induction could result in the baby getting stuck. If natural labor happens before 40 weeks we can see how it goes. C/S 09/20 JV. (7) Abnormal glucose tolerance test during , antepartum: COMMENT: normal 3 hr, however the fasting was elevated. - monitor at home fasting levels: 2 wk of readings WNL except 2 and states high carb snack night prior. Will continue to monitor (8) Supervision of high-risk : QUALIFIERS: Trimester: third trimester Qualified Code(s): O09.93 - Supervision of high risk , unspecified, third trimester COMMENT: PRR, , LORY 09/26/24, Mc (9) Obesity affecting : QUALIFIERS: Trimester: third trimester Obesity type affecting : unspecified obesity Qualified Code(s): O99.213 - Obesity complicating , third trimester COMMENT: HgbA1c 5.2 , BMI 44. - weekly nsts starting at 34 weeks (10) : QUALIFIERS: Weeks of gestation: 38 weeks Qualified Code(s): Z 3A.38 - 38 weeks gestation of COMMENT: GBS neg, NIPT low risk, nl anatomy (11) HPV in female: COMMENT: pap neg 2017 & 2023. Repeat pap 2024 @ pp visit (12) Seasonal allergies: Charges/Coding Multi Select Codes Urinary/Genital Urinary/Genital CPT Codes: No Charge
[2024-09-23 08:45] VITALS: BP 142/78; PULSE 78; RESP 18; TEMP 36.3; O2SAT 97
[2024-09-23] MEDS: Senna/Docusate Sodium 1 Tablet PO (09:13)
[2024-09-23 12:00] VITALS: BP 151/109; PULSE 100; RESP 18; TEMP 36.4; O2SAT 98
--- NOTE | 2024-09-23 12:54 | NURSING ---
[facility]'s nurse notified of pt's BP's this am per MARIO hardin. BP-142/78 at 0845 and 151/109 at 1200.
[2024-09-23] MEDS: NIFEdipine 30 MG Tablet PO (13:36)
[2024-09-23 14:22] VITALS: BP 138/84; PULSE 82; RESP 18; O2SAT 97
--- NOTE | 2024-09-23 15:32 | CASEMGMT ---
Social Work Assessment Labor and Delivery Unit Patient Address:[address] [facility] [address] Phone number: [phone] Date of Referral: 09/20/24 Time of Referral:? [phone] Referred By: Dr. Sweeney Date of Intervention: 09/20/24?? Time of Intervention:? 0 Reason for Referral:? patient's dad is alcoholic/ addict Sw completed chart review and acknowledges social work consult. Sw presented to bedside and introduced self to mother of baby (MOB- Kenyetta) and father of baby (FOB- Mc). Sw explained reason for sw involvement and completed psychosocial assessment. History obtained from: medical records, MOB and FOB Household composition: Currently residing in the family home is MOB and FOB. [place] baby to be included in residence when ready for discharge. Parents deny any problems or concerns with housing, stating that it is safe and secure. Patient's parent/guardian status:? AIMEE states that she and FOB met through [employer] [facility] [employer] college roommate. They have been together for 12 years. No concerns reported of domestic violence or intimate partner violence. [place] baby is first baby for parents. ? Medical History: ?AIMEE is 34 year old female who is 1, para 0- now 1 following labor and delivery of . AIMEE received routine care during with [place]. AIMEE presented to hospital for primary on 09/20/24 at 39 weeks gestation. Baby girl, named Leatha Ontiveros, was born weighing 10lb 7oz and had apgars of 8 and 9 at one and five minutes of life, respectfully. AIMEE is breast feeding and baby will be followed by Dr. Armas for pediatrics. - Baby required transfer to [facility] due to hypoglycemia. NO discharge identified at this time. Educational Status:? Both parents graduated from high school. AIMEE obtained her college degree and FORedd obtained some college. Parents deny any issues with reading, learning or comprehension. Financial Status: AIMEE is employed working at [employer] and ODALIS is a hankins. Supplies:??All necessary baby supplies obtained, including: car seat, safe sleep space, clothes, diapers and wipes. Childcare/Caregiver(s):? AIMEE states that she will be the primary caregiver along with ODALIS. Transportation:?? Both parents have their drivers license and have reliable means of transportation. Programs/Agencies Involved: ?Parents are over income for community resources that provide financial assistance. ?? Children Services/Legal Issues:??No prior involvement with Children Services. No issues or concerns warranting referral to be made at this time. ? Behavioral Health Issues: ??Mental Health History:?Both parents deny any mental health history. Substance Use History:?Parents deny substance use history prior to and during . ? Family History: MOB states that her father has history of substance use. MOB states that her father is not involved and will not be around the baby. MOB states that she and FOB do not do drugs and have healthy and safe coping skills opposed to using drugs. Drug Screens: ?NO drug screens observed while completing chart review. ? Family/Social Stressors:? Parents deny any issues or concerns or stressors. Support Systems: MOB states that both sets of grandparents are their biggest supports at this time. Depression/Shaken Baby/Safe Sleeping:? Sw educated parents on signs and symptoms of baby blues and depression and anxiety. MOB and FOB state that they have heard those terms and are familiar with what to be on the lookout for. MOB states that if she were to struggle with any symptoms she would feel comfortable talking to FOB about that. FOB states that if she were to struggle he would be able to recognize that and would know how to help and support her. Sw explained the importance of using healthy and safe coping mechanisms opposed to seeking comfort from drugs or alcohol. Sw educated parents on shaken baby prevention and ABCs of safe sleep. MOB and FOB expressed understanding. ASSESSMENT:? MOB and baby admitted following labor and delivery of . MOB has family history of addiction/ substance use. Sw and parents discussed the importance of using healthy and safe coping skills now that they are parents. Sw and parents talked about the stressors that come along with becoming a parent. MOB and FOB were welcoming of meeting with sw. MOB was observed laying comfortably on bed and holding baby who looked asleep peacefully laying against MOB. MOB and FOB both state that they are happy baby is here, and feel prepared to take baby home. Parents report to obtaining all necessary baby items and have natural supports at home. PLAN:? No other services requested or indicated. MOB and baby to be discharged when medically ready. Parents were provided literature regarding: signs and symptoms of baby blues and mood and anxiety disorders, Help Me Grow, shaken baby prevention, ABCs of safe sleep and a list of county resources that are available for them should any needs present themselves. Grace Echavarria, [facility], MULTI C[employer] TECHNICIAN
[2024-09-23 19:23] VITALS: BP 146/84; PULSE 98; RESP 16; TEMP 36.3; O2SAT 98
[2024-09-24 02:43] VITALS: BP 138/82; PULSE 82; RESP 16; TEMP 36.6; O2SAT 97
--- NOTE | 2024-09-24 07:34 | DS.PCM_ITS ---
Providers Date of Admission: 09/20/24 Primary Care Physician: No Primary Care Phys Reason For Visit: CSECTION/CSECTION DELIVERY Diagnosis Discharge Diagnosis (1) Status post section: Status: Acute Code(s): Z98.891 - History of uterine scar from previous surgery (2) LGA (large for gestational age) fetus affecting mother, antepartum: Status: Acute Code(s): O36.60X0 - Maternal care for excessive growth, unspecified trimester, not applicable or unspecified (3) Elevated BP without diagnosis of hypertension: Status: Acute Code(s): R03.0 - Elevated blood-pressure reading, without diagnosis of hypertension (4) Non-stress test nonreactive: Status: Acute Code(s): O28.8 - Other abnormal findings on screening of mother (5) contractions: Status: Acute Code(s): O47.00 - False labor before 37 completed weeks of gestation, unspecified trimester (6) LGA (large for gestational age) fetus affecting management of mother: Status: Acute Code(s): O36.60X0 - Maternal care for excessive growth, unspecified trimester, not applicable or unspecified (7) Abnormal glucose tolerance test during , antepartum: Status: Acute Code(s): O99.810 - Abnormal glucose complicating (8) Supervision of high-risk : Status: Acute Code(s): O09.90 - Supervision of high risk , unspecified, unspecified trimester Qualifiers: Trimester: third trimester Qualified Code(s): O09.93 - Supervision of high risk , unspecified, third trimester (9) Obesity affecting : Status: Acute Code(s): O99.210 - Obesity complicating , unspecified trimester Qualifiers: Trimester: third trimester Obesity type affecting : u nspecified obesity Qualified Code(s): O99.213 - Obesity complicating , third trimester (10) : Status: Acute Code(s): Z34.90 - Encounter for supervision of normal , unspecified, unspecified trimester Qualifiers: Weeks of gestation: 38 weeks Qualified Code(s): Z3A.38 - 38 weeks gestation of (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 I have discussed with the patient the risks, benefits, and alternatives of the procedure which include but are not limited to risks of anesthesia, bleeding, infection, possible damage to bowel, bladder, or surrounding vasculature which could lead to additional surgery to evaluate any complications. Patient agrees to procedure and wishes to proceed. ACOG/uptodate references given for additional information regarding procedure. plan for 3 grams Ancef and will use Exparel + bupivacaine 0.5% at facial closure due to inability to use Duramorph Medications at Discharge Home Medications blood sugar diagnostic (Blood Glucose Test strips) #120 07/03/24 blood-glucose meter #1 07/03/24 lancets #100 07/03/24 ibuprofen 800 mg tablet 800 mg PO Q8H PRN pain #30 tabs 09/20/24 oxycodone-acetaminophen 5 mg-325 mg tablet (Percocet) 1 tab PO Q4H PRN pain 7 days #20 tabs 09/20/24 labetalol 200 mg tablet 200 mg PO TID 30 days #90 tabs 09/24/24 nifedipine 30 mg tablet,extended release 24 hr (Procardia XL) 30 mg PO DAILY #30 tabs 09/24/24 Hospital Course Operations section Summary of Care Provided Minutes Spent on Discharge: 20 Hospital Course: The patient was admitted to L&D on 09/20/24 for a primary section for LGA and baby did weigh 10 pounds 6 oz. She experienced a syncopal episode after passing a clot on Monday night but remained stable. On day #1 her blood pressures were noted to be high and she was symptomatic with a headache. She was started on labetalol which was then increased over the next 2 days. On post day #3 procardia was started. Her pressures this am are stable, her headache is down to a 4/10 and her baby is planned to be discharged from the special care nursery this afternoon. The plan is to discharge her to home on percocet and ibuprofen for pain and also procardia 30 mg xl daily as well as labetalol 200 mg tid with close follow up in 1 week in our office. Weight / BMI Weight Weight: 315 lb Body Mass Index (BMI) 52.4 ABG / Lab / Microbiology Data 09/21/24 06:05 09/20/24 05:07 D/C Instructions Discharge Activity: May Not Drive (for 2 weeks or while taking narcotic pain medications.), May Shower and May Take a Tub Bath (in 7 days.) May resume sexual activity in: 4-6 weeks Weight Bearing Status: Full weight bearing Lifting Restrictions: 20 pounds Call your doctor if your incision/area has: Continuous Slow Oozing, Sudden Increased Bleeding, Increased Pain/ Swelling, Increased Redness and Foul Smelling Discharge Call your doctor if you observe: Fever of 101 or Higher and Using more than 1 pad per hour Suture Line Care: Avoid Pulling/Pushing and Avoid Pinching/Bending Cleanse incision/area with: Soap & Water and Keep Dressing Clean & Dry DC O2, CPAP, BIPAP Needs Home O2 Discharge instructions: No Please Follow Up With: Rhina Sweeney DO When: Call [phone] to make an appointment for an incision check in 1-2 weeks. Meaningful Use Info Meaningful Use Meaningful Use Diagnoses (Choose all that apply): None applicable Discharge Plan Admission Admit Date/Time: 09/20/24 04:59 Primary Reason for Your Visit: section Attending Provider: Rhina Sweeney Primary Care Provider: Care PhysicianDaisy Primary Discharge Orders/Prescriptions Prescriptions: New ibuprofen 800 mg tablet 800 mg PO Q8H PRN (Reason: pain) Qty: 30 0RF oxycodone-acetaminophen [Percocet] 5-325 mg tablet 1 tab PO Q4H PRN (Reason: pain) 7 Days Qty: 20 0RF labetalol 200 mg tablet 200 mg PO TID 30 Days Qty: 90 0RF nifedipine [Procardia XL] 30 mg tablet extended release 24hr 30 mg PO DAILY Qty: 30 0RF No Action (DME) Blood Glucose Test Strip See Rx Instructions .MEDSUPPLY Qty: 120 0RF Rx Instructions: As directed-fasting 3-4 times per week (DME) blood-glucose meter Misc See Rx Instructions .MEDSUPPLY Qty: 1 0RF Rx Instructions: As directed- Test fasting 3-4 times per week (DME) lancets Misc See Rx Instructions .MEDSUPPLY Qty: 100 0RF Rx Instructions: As directed-fasting 3-4 times per week Referrals / Follow Up: Care Physician,No Primary [Primary Care Provider] - Disposition Disposition (needs filled in before D/C Order can be placed): Home, Self Care
[2024-09-24 08:00] VITALS: RESP 16; TEMP 36
[2024-09-24] MEDS: Senna/Docusate Sodium 1 Tablet PO ×2 (08:20)
[2024-09-24 09:21] VITALS: BP 140/82; PULSE 80; RESP 16
[2024-09-24 10:06] VITALS: BP 146/88; PULSE 93; RESP 18; TEMP 36.7
== END 2024-09-24 11:10 | disposition home or self-care (01) | DRG 788 ==
PROVIDERS: Admitting Provider Obstetrics & Gynecology; Referring Provider Obstetrics & Gynecology; Visit Provider Obstetrics & Gynecology
PROC: 10D00Z1 Extraction of Products of Conception, Low, Open Approach (ICD-10-PCS; CPT 59514; principal; 2024-09-20 07:00)
DX: O36.63X0 Maternal care for excessive fetal growth, third trimester, not applicable or unspecified (principal); O99.214 Obesity complicating childbirth; O33.9 Maternal care for disproportion, unspecified; Z37.0 Single live birth; R03.0 Elevated blood-pressure reading, without diagnosis of hypertension; O99.814 Abnormal glucose complicating childbirth; Z3A.39 39 weeks gestation of pregnancy
CPT/HCPCS: 59025; 59050; 80053; 82570; 82962; 84156; 85025; 85027; 86780; 86850; 86900; 86901; 99221; A4216; G0378; J0666; J2405

== ENCOUNTER → 2024-10-01 | Outpatient (CLI) | payer OTHER, SELFPAY ==
[2024-10-01 12:16] LABS: Hematocrit 36.0 % (37-47); Hemoglobin 11.4 g/dL (12.0-15.0); Immature Granulocytes Count 0.020 X10^3/uL (0.0-0.0); Mean Corp Hgb Conc 31.7 g/dL (32-36); Mean Corpuscular Volume 81.1 fL (81-99); Mean Platelet Vol. 10.0 fl (6.2-12.0); NRBC Flagged by Analyzer 0 % (0-5); Platelet Count 496 K/mm3 (150-450); RBC Distribution Width CV 15.3 % (11.6-14.6); RBC Distribution Width SD 44.7 fl (35.1-43.9); Red Blood Count 4.44 M/mm3 (4.2-5.4); White Blood Count 6.8 K/mm3 (4.4-11.0)
== END | disposition home or self-care (01) ==
PROVIDERS: Visit Provider Nurse Practitioner Women's Health
DX: D64.9 Anemia, unspecified (principal)
CPT/HCPCS: 36415; 85025

== ENCOUNTER → 2024-10-30 | Outpatient (CLI) | payer OTHER, SELFPAY ==
--- OUTSIDE RECORDS SUMMARY | 2024-10-30 19:05 | XMS RPT_ITS | CCD ---
Author Organization [facility] Care Team Providers Care Press Shop Supervisor Name Role Phone Ankush CHOPRA-CLaura Attending [...] CARE, Primary Care Unavailable MARIS ARAGON Referring Unavailabl e PETE BARDALES Attending Unavailable RHINA AGGARWAL Referring Unavailab crow NO PRIMARY CAREMD Primary Care Unavailable Grace Murcia DO, Dr. Lantigua Admit Provider [phone] Grace Murcia DO, Dr. Lantigua Other Provider Milady Hensley CNM Attending Provider [phone] Care Physician, No Primary Primary Care Provider Unavailable Care Physician, No Primary Referring Provider Un available Earline Andrade CNM Attending Provider [phone] Rhina Sweeney Attending Unavailabl e Rhina Sweeney Referring Unavailabl e Care Physician, No Primary Primary Care Unava ilable Earline Andrade Referring Unavailable Care Physician, No Primary Primary Care Unava ilable Earline Andrade Attending Unavailable Jennifer LIVER TRIMMER, Shea Attending Unavailable [place] LIVER TRIMMER, Shea Referring Unavailable Care Physician, No Primary Primary Care Unava ilable Earline Andrade Referring Unavailable Earline Andrade Attending Unavailable Care Physician, No Primary Primary Care Unava ilable Earline Andrade Consulting Unavailable Earline Andrade Referring Unavailable Earline Andrade Attending Unavailable Care Physician, No Primary Primary Care Unava ilable Laura Lechuga Referring Unavailable Care Physician, No Primary Primary Care Unava ilable Laura Lechuga Attending Unavailable Earline Andrade Referring Unavailable Care Physician, No Primary Primary Care Unava ilable Earline Andrade Attending Unavailable Rhina Sweeney Attending Unavailabl e Rhina Sweeney Referring Unavailabl e Care Physician, No Primary Primary Care Unava ilable [place] LIVER TRIMMER, Shea Attending Unavailable [place] LIVER TRIMMER, Shea Referring Unavailable Care Physician, No Primary Primary Care Unava ilable Maris Aragon Attending Unavailable Care Physician, No Primary Primary Care Unava ilable Care Physician, No Primary Referring Unava ilable Care Physician, No Primary Primary Care Unava ilable Care Physician, No Primary Referring Unava ilable Earline Andrade Attending Unavailable [place] LIVER TRIMMER, Shea Attending Unavailable Care Physician, No Primary Primary Care Unava ilable Care Physician, No Primary Referring Unava ilable Maris Aragon Attending Unavailable Care Physician, No Primary Primary Care Unava ilable Care Physician, No Primary Referring Unava ilable Jennifer Shea CHOPRA Attending Unavailable Care Physician, No Primary Primary Care Unava ilable Care Physician, No Primary Referring Unava ilable Rhina Sweeney Attending Unavailabl e Vande Velde, Rhina Consulting Unavailabl e Vande Velde, Rhina Referring Unavailabl e Vande Velde, Rhina Admitting Unavailabl e Care Physician, No Primary Primary Care Unava ilable Maris Aragon Attending Unavailable Rhina Sweeney Attending Unavailabl e Care Physician, No Primary Primary Care Unava ilable Care Physician, No Primary Referring Unava ilable [place] Shea CHOPRA Attending Unavailable Care Physician, No Primary Primary Care Unava ilable Milady Hensley Attending Unavailable Earline Andrade Consulting Unavailable Earline Andrade Referring Unavailable Earline Andrade Attending Unavailable Care Physician, No Primary Primary Care Unava ilable Rhina Sweeney Attending Unavailabl e Vande Velchapo, Rhina Admitting Unavailabl e Vande Velde, Rhina Referring Unavailabl e Care Physician, No Primary Primary Care Unava ilable Earline Andrade Referring Unavailable Earline Andrade Attending Unavailable Care Physician, No Primary Primary Care Unava ilable Rhina Sweeney Attending Unavailabl e Care Physician, No Primary Referring Unava ilable Care Physician, No Primary Primary Care Unava ilable Earline Andrade Referring Unavailable Care Physician, No Primary Primary Care Unava ilable Earline Andrade Attending Unavailable Rhina Sweeney Attending Unavailabl e Care Physician, No Primary Primary Care Unava ilable Care Physician, No Primary Referring Unava ilable Laura Lechuga Attending Unavailable Rhina Sweeney Attending Unavailabl e Care Physician, No Primary Primary Care Unava ilable Care Physician, No Primary Referring Unava ilable Earline Andrade Attending Unavailable Care Physician, No Primary Referring Unava ilable Care Physician, No Primary Primary Care Unava ilable Rhina Sweeney Attending Unavailabl e Care Physician, No Primary Referring Unava ilable Care Physician, No Primary Primary Care Unava ilable Rhina Sweeney Attending Unavailabl e Care Physician, No Primary Referring Unava ilable Care Physician, No Primary Primary Care Unava ilable [place] Shea CHOPRA Attending Unavailable Care Physician, No Primary Primary Care Unava ilable Care Physician, No Primary Referring Unava ilable Care Physician, No Primary Primary Care Earline Perez Attending Unavailable Care Physician, No Primary Referring Jose E Rodriguez LIVER TRIMMER, Shea Attending Unavailable Care Physician, No Primary Primary Care Unava ilable Care Physician, No Primary Referring Unava ilable Jennifer LIVER TRIMMERShea Attending Unavailable Care Physician, No Primary Primary Care Unava ilable Care Physician, No Primary Referring Unava ilable Rhina Sweeney Attending [facility], No Primary Primary Care Unava ilable Care Physician, No Primary Referring Unava Earline Johnson Attending Unavailable Medications Current Medications Medication Drug Class(es) Dates Sig (Normalized) Sig (Original) ibuprofen 800 mg oral tablet (4 sources) Nonsteroidal Anti-inflammatory Drug Start: 09-20-2024 take 1 tablet by mouth every eight hours as needed for pain Ibuprofen 800 mg tablet Active 800 mg PO Q8H as needed for pain 30 0 September 20, 2024 12:00am labetalol hydrochloride 300 mg oral tablet (7 sources) beta-Adrenergic Bertha Start: 10-01-2024 End: 10-15-2024 take 1 tablet by mouth twice daily Labetalol 300 mg tablet Discontinued 300 mg PO TWICE A DAY 60 2 October 01, 2024 9:55am October 15, 2024 3:10pm Start: 09-24-2024 End: 10-01-2024 take 1 tablet by mouth three times daily Labetalol 300 mg tablet Discontinued 300 mg PO THREE TIMES A DAY 90 30 September 24, 2024 12:00am October 01, 2024 9:56am NIFEdipine 30 mg osmotic 24 hr extended release oral tablet (4 sources) Dihydropyridine Calcium Channel Bertha Start: 09-24-2024 take 1 tablet by mouth twice daily Nifedipine (Procardia Xl) 30 mg tablet extended release 24hr Active 30 mg PO TWICE A DAY 60 30 September 24, 2024 12:00am Completed/Discontinued Medications Medication Drug Class(es) Dates Sig (Normalized) Sig (Original) acetaminophen 325 mg / oxyCODONE hydrochloride 5 mg oral tablet (4 sources) Opioid Agonist Start: 09-20-2024 End: 10-01-2024 Oxycodone-Acetamino phen (Percocet) 5-325 mg tablet Discontinued 1 {tbl} PO Q4H as needed for pain 20 7 0 September 20, 2024 October 01, 2024 9:52am Status post delivery History of uterine scar from previous surgery Blood-Glucose Meter misc (16 sources) Start: 07-03-2024 End: 10-01-2024 Blood-Glucose Meter misc Discontinued 0 .MEDSUPPLY 1 0 July 03, 2024 12:00am October 01, 2024 9:52am As directed- Test fasting 3-4 times per week Start: 07-03-2024 Blood-Glucose Meter misc Active 0 .MEDSUPPLY 1 0 July 03, 2024 12:00am As directed- Test fasting 3-4 times per week Start: 07-03-2024 Blood-Glucose Meter misc Active 0 .MEDSUPPLY 1 July 03, 2024 12:00am As directed- Test fasting 3-4 times per week Mv-Mins 76-Zkvr-Hahjr No.1-D hearn (Pnv-Paloma) 28-1-300 mg capsule (18 sources) Start: 02-23-2024 End: 09-20-2024 Mv-Mins 73-Qmso-Vjjgt No.1-D hearn (Pnv-[place]) 28-1-300 mg capsule Discontinued NMA PO February 23, 2024 1:00am September 20, 2024 5:06am Start: 02-23-2024 Mv-Mins 71-Iro n-Folic No.1-Dha (Pnv-[place]) 28-1-300 mg capsule Active NMA PO February 23, 2024 1:00am Problems Active Problems Problem Classification Problem Date Documented Date Episodic/Chronic Deficiency and other anemia (6 sources) Anemia; Translations: [Anemia, unspecified] 10-01-2024 Episodic Comment on above: enc needs to take PN V. CBC today Deficiency and other anemia (1 source) Anemia, unspecified; Translations: [Anemia, unspecified] Onset: 10-09-2024 Episodic Deficiency and other anemia (1 source) Iron deficiency anemia, unspecified; Translations: [Iron deficiency anemia, unspecified] Onset: 10-01-2024 Episodic Diabetes or abnormal glucose tolerance complicating ; childbirth; or the puerperium (20 sources) with abnormal glucose tolerance test; Translations: [Abnormal glucose complicating ] Onset: 09-17-2024 07-03-2024 Episodic Comment on above: normal 3 [...] completed weeks of gestation, unspecified trimester] Onset: 09-17-2024 08-12-2024 Episodic Headache; including migraine (1 source) Headache; including migraine; Translations: [Headache, unspecified] Onset: 10-15-2024 Other aftercare (3 sources) Surgical follow-up; Translations: [Encounter for follow-up examination after completed treatment for conditions other than malignant neoplasm] 10-01-2024 Episodic Other aftercare (1 source) Encounter for follow-up examination after completed treatment for conditions other than malignant neoplasm; Translations: [Encounter for follow-up examination after completed treatment for conditions other than malignant neoplasm] Onset: 10-01-2024 Episodic Other circulatory disease (20 sources) Elevated blood-pressure reading without diagnosis of hypertension; Translations: [Elevated blood-pressure reading, without diagnosis of hypertension] 09-13-2024 Episodic Other circulatory disease (2 sources) Elevated blood-pressure reading, without diagnosis of hypertension; Translations: [Elevated blood-pressure reading, without diagnosis of hypertension] Onset: 10-01-2024 Episodic Other complications of ; puerperium affecting management of mother (20 sources) Large for gestation age fetus; Translations: [Maternal care for excessive growth, unspecified trimester, not applicable or unspecified] 07-16-2024 Episodic Comment on above: Growth US Growth US: 83% EFW, 72% AC 30wk Other complications of ; puerperium affecting management of mother (1 source) Other complications of the puerperium, not elsewhere classified; Translations: [Other complications of the puerperium, not elsewhere classified] Onset: 10-15-2024 Episodic Other complications of (20 sources) Maternal obesity complicating , childbirth and the puerperium, antepartum; Translations: [Obesity complicating , unspecified trimester] 04-04-2024 Chronic Comment on above: HgbA1c 5.2 , BMI 44. HgbA1c 5.2 , BMI 44. - weekly nsts starting at 34 weeks Other complications of (2 sources) Obesity complicating , third trimester; Translations: [Obesity complicating , third trimester] Onset: 09-17-2024 Chronic Other complications of (1 source) Obesity [...] weeks we can see how it goes. Growth US: 97%ileNST wkly at 34 wk. [...] weeks we can see how it goes. C/S 09/20 JV. Other complications of (20 sources) Abnormal findings on screening of mother; Translations: [Other abnormal findings on screening of mother] 08-26-2024 Episodic Comment on above: in office BPP 09/13. r eactive on WP. d/c home Other complications of (2 sources) Other abnormal findings on screening of mother; Translations: [Other abnormal findings on screening of mother] Onset: 09-17-2024 Episodic Other complications of (2 sources) Maternal care for excessive growth, unspecified trimester, not applicable or unspecified; Translations: [Maternal care for excessive growth, unspecified trimester, not applicable or unspecified] Onset: 09-17-2024 Episodic Other complications of (2 sources) Supervision of high risk , unspecified, third trimester; Translations: [Supervision of high risk , unspecified, third trimester] Onset: 09-17-2024 Episodic Other complications of (1 source) Other specified related conditions, third trimester; Translations: [Other specified related conditions, third trimester] Onset: 09-24-2024 Episodic Other complications of (1 source) Maternal care for abnormalities of the heart rate or rhythm, third trimester, not applicable or unspecified; Translations: [Maternal care for abnormalities of the heart rate or rhythm, third trimester, not applicable or unspecified] Onset: 09-05-2024 Episodic Other complications of (1 source) Uterine size-date discrepancy, unspecified trimester; Translations: [Uterine size-date discrepancy, unspecified trimester] Onset: 08-26-2024 Episodic Other and delivery including normal (20 sources) Normal ; Translations: [Encounter for supervision of normal first , unspecified trimester] Onset: 03-20-2024 04-02-2024 Episodic Comment on above: NIPT low risk NIPT low risk, nl an atomy GBS neg, NIPT low ri sk, nl anatomy Other upper respiratory disease (20 sources) Seasonal allergy; Translations: [Other seasonal allergic rhinitis] 12-25-2023 Chronic Other upper respiratory disease (2 sources) Other seasonal allergic rhinitis; Translations: [Other seasonal allergic rhinitis] Onset: 09-17-2024 Chronic Residual codes; unclassified (2 sources) History of uterine scar from previous surgery; Translations: [History of uterine scar from previous surgery] Onset: 10-01-2024 Episodic Residual codes; unclassified (2 sources) 38 weeks gestation of ; Translations: [38 weeks gestation of ] Onset: 09-17-2024 Episodic Residual codes; unclassified (2 sources) 37 weeks gestation of ; Translations: [37 weeks gestation of ] Onset: 09-10-2024 Episodic Residual codes; unclassified (1 source) 35 weeks gestation of ; Translations: [35 weeks gestation of ] Onset: 09-05-2024 Episodic Residual codes; unclassified (1 source) 33 weeks gestation of ; Translations: [33 weeks gestation of ] Onset: 08-12-2024 Episodic Viral infection (20 sources) Human papilloma virus infection; Translations: [Papillomavirus as the cause of diseases classified elsewhere] Onset: 09-17-2024 01-08-2024 Episodic Comment on above: pap neg 2018 & 2023. Repeat pap 2024 pap neg 2017 & 2023. Repeat pap 2024 @ pp visit Past or Other Problems Problem Classification Problem Date Documented Da te Episodic/Chronic Immunizations and screening for infectious disease (1 source) Encounter for immunization; Translations: [Encounter for immunization] Onset: 07-16-2024 Episodic Other complications of (1 source) Supervision of high risk , unspecified, second trimester; Translations: [Supervision of high risk , unspecified, second trimester] Onset: 06-27-2024 Episodic Other complications of (1 source) Supervision of high risk , unspecified, unspecified trimester; Translations: [Supervision of high risk , unspecified, unspecified trimester] Onset: 04-02-2024 Episodic Other screening for suspected conditions (not mental disorders or infectious disease) (2 sources) Encounter for screening for diabetes mellitus; Translations: [Encounter for screening for malignant neoplasm of cervix] Onset: 01-22-2024 Episodic Residual codes; unclassified (1 source) 26 weeks gestation of ; Translations: [26 weeks gestation of ] Onset: 06-24-2024 Episodic Residual codes; unclassified (1 source) 14 weeks gestation of ; Translations: [14 weeks gestation of ] Onset: 04-02-2024 Episodic Residual codes; unclassified (1 source) 10 weeks gestation of ; Translations: [10 weeks gestation of ] Onset: 03-01-2024 Episodic Results Test Name Value Interpretation Reference Range Facility [facility] Visit Reporton 10-15-2024 [facility] Visit Report [facility] [address] [place] [address], [address] [place] [address] OFFICE VISIT Date of Service: 10/15/24 MR#: [id number] Acct: [id number] Name: SAMEER CABALLERO Rep #: [id number] : 1990 Provider: NERY hsieh Age/Sex: 34/F [place] [facility] [place]: Signed Intake Vital Signs 10/01/24 09:53 10/15/24 14:52 Height 5 ft 5 in 5 ft 5 in Weight: 272 lb 3 oz BMI 45.3 BP 105/69 Intake Visit Reasons: visit (obstetrics) 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: PP headache and dizzy Mechanical Assembly Required: No Is patient in pain?: No Allergies No Known Allergies Allergy (Verified 10/15/24 14:51) Medications ???Medication ???Instructions ???Recorded ???Confirmed ???Type ibuprofen 800 mg tablet 800 mg PO Q8H PRN pain #30 tabs 10/15/24 Rx nifedipine 30 mg tablet,extended 30 mg PO BID 30 days #60 tabs 09/0610/15/24 Rx release 24 hr (Procardia XL) Is last menstrual period known: No Post menopausal: No Patient : No : Yes PFSH Medical History Anemia Seasonal allergies History of frequent headaches Surgical History [place] teeth extracted Family History Grandmother CVA (cerebral vascular accident) Maternal Diabetes Maternal Grandfather Myocardial infarction, Onset Age: 54 Maternal Social History adopted: No household members: spouse housing: house number of children: 0 current occupational status: employed current occupation: [employer] current occupational exposures/hazards: No pets and animals: [...] physical activity do you participate in: none ganesh/church: [employer] seatbelt use: always do you feel safe at home: Yes additional social history: - Mc - nhi [facility] Routine Follow-Up Details: SAEMER CABALLERO is a 34 year old who presents for over last week struggling with dizziness gomez with position changes and some headache that does respond to tylenol. History 1 Elective abortions Hx Para 0 Spontaneous abortions Hx # Term Pregnancies 1 Ectopic pregnancies Hx # Pregnancies Multiple births # of living children 1 Past Pregnancies Del. Date Name GA/Weeks Outcome Route Bth Weight Gen Labor Lgth Anesthesia [facility] Provider FOB 09/20/24 Leatha 39 live - full term 10lbs 7oz Female spinal [facility] J cM Delivery Date: 09/20/24 Last Updated by: Mariely Vasquez RN primary cs for LGA 10lbs 7oz ROS Const Constitutional: Reports as per HPI Eyes Eyes: Reports system reviewed and no additional complaints, except as documented GI GI: Denies abdominal pain or change in bowel habits : Reports as per HPI Neuro Neuro: Reports as per HPI Exam Const General: cooperative and no acute distress Orientation: oriented x3 HENMT Head: normal to inspection and normocephalic Eyes General: appearance normal, both eyes and all related structures Neck Neck: normal visual inspection Resp Effort Inspection: normal respiratory effort Neuro Cognition: normal cognition Speech: speech normal Psych Appearance: grossly normal Mood: congruent mood Affect: normal affect Speech and Movement: speech and movement normal Attitude: cooperative Judgment: judgment good Coding Level of Care Code No Charge Diagnoses Routine Follow-Up Z39.2 Assessment and Plan Assessment and Plan (1) Routine Follow-Up: Medications: Discontinued labetalol Discontinued Reason: Order Completed 300 mg PO BID 60 tabs 2RF Plan Will DC labetalol. Enc use of tylenol Will monitor BP at home and call if elevations occur. Also if dizziness persists, will call and we will reduce procardia from bid to daily. RTO prn, 6 wk pp visit 10/15/24 1512 Date Shea Rodriguez LIVER TRIMMER LIVER TRIMMER-C Cosigner Signature: Date (if applicable) CC: Normal [facility] Absolute lymphocyte countOrd ered By: Shea Hursttings on 10-01-2024 Lymphocytes Auto (Unsp spec) [#/Vol] 2.17 10*3/uL 0.83-4.51 [facility] Absolute neutrophil countOrd ered By: Shea Jennifer on 10-01-2024 Neutrophils (Bld) [#/Vol] 4.0 10*3/uL 2.0-7.7 [facility] Automated lymphocyte count a s percentage of total leukocytesOrdered By: Shea Rodriguez on 10-01-2024 Lymphocytes/100 WBC Auto (Unsp spec) 31.8 % 19-41 [facility] Basophil percentageOrdered B y: Shea Verass on 10-01-2024 Basophils/100 WBC (Bld) 0.6 % 0-1 [facility] CBC W/Diff, Automatedon 09-07 Absolute Lymph 2.17 X10 3/uL Normal 0.83-4.51 [facility] Comment on above: Performed By: #### L 100.0100 ####[facility] [address] [place], [address] Absolute Neut 4.0 X10 3/uL Normal 2.0-7.7 [facility] Comment on above: Performed By: #### L 100.0100 ####[facility] [address] [place], [address] Basophils/100 WBC (Bld) 0.6 % Normal 0-1 [facility] Comment on above: Performed By: #### L 100.0100 ####[facility] [address] [place], [address] Eosinophils/100 WBC (Bld) 2.5 % Normal 0-5 [facility] Comment on above: Performed By: #### L 100.0100 ####[facility] [address] [place], [address] Erythrocyte distribution width (RBC) [Ratio] 15.3 % High 11.6-14.6 [facility] Comment on above: Performed By: #### L 100.0100 ####[facility] [address] [place], [address] Hematocrit (Bld) [Volume fraction] 36.0 % Low 37-47 [facility] Comment on above: Performed By: #### L 100.0100 ####[facility] [address] [place], [address] Hemoglobin (Bld) [Mass/Vol] 11.4 g/dL Low 12.0-15.0 [facility] Comment on above: Performed By: #### L 100.0100 ####[facility] [address] [place], [address] IG% 0.300 Normal 0.0-0.9 [facility] Comment on above: Result Comment: IG% - Immature Granulocytes (promyelocytes, myelocytes and metamyelocytes) > 1% indicates that a LEFT SHIFT is Present. Performed By: #### L 100.0100 ####[facility] [address] [place], [address] Lymphocytes/100 WBC (Bld) 31.8 % Normal 19-41 [facility] Comment on above: Performed By: #### L 100.0100 ####[facility] [address] [place], [address] MCH (RBC) [Entitic mass] 25.7 pg Low 27.0-32.0 [facility] Comment on above: Performed By: #### L 100.0100 ####[facility] [address] [place], [address] MCHC (RBC) [Mass/Vol] 31.7 g/dL Low 32-36 [facility] Comment on above: Performed By: #### L 100.0100 ####[facility] [address] [place], [address] MCV (RBC) [Entitic vol] 81.1 fL Normal 81-99 [facility] Comment on above: Performed By: #### L 100.0100 ####[facility] [address] [place], [address] Monocytes/100 WBC (Bld) 5.9 % Normal 0-10 [facility] Comment on above: Performed By: #### L 100.0100 ####[facility] [address] [place], [address] Neutrophils/100 WBC (Bld) 58.9 % Normal 47-70 [facility] Comment on above: Performed By: #### L 100.0100 ####[facility] [address] [place], [address] Nucleated RBC (Bld) [#/Vol] 0 10*3/uL Normal 0-5 [facility] Comment on above: Performed By: #### L 100.0100 ####[facility] [address] [place], [address] Platelet mean volume (Bld) [Entitic vol] 10.0 fL Normal 6.2-12.0 [facility] Comment on above: Performed By: #### L 100.0100 ####[facility] [address] [place], [address] Platelets (Bld) [#/Vol] 496 10*3/uL High 150-450 [facility] Comment on above: Performed By: #### L 100.0100 ####[facility] [address] [place], [address] RBC (Bld) [#/Vol] 4.44 10*6/uL Normal 4.2-5.4 [facility] Comment on above: Performed By: #### L 100.0100 ####[facility] [address] [place], [address] RDW SD 44.7 fl High 35.1-43.9 [facility] Comment on above: Performed By: #### L 100.0100 ####[facility] [address] [place], [address] WBC (Bld) [#/Vol] 6.8 10*3/uL Normal 4.4-11.0 [facility] Comment on above: Performed By: #### L 100.0100 ####[facility] [address] [place], [address] Eosinophil percentageOrdered By: Shea Rodriguez on 10-01-2024 Eosinophils/100 WBC (Bld) 2.5 % 0-5 [facility] Erythrocyte distribution wid th ratioOrdered By: Shea Rodriguez on 10-01-2024 Erythrocyte distribution width (RBC) [Ratio] 15.3 % High 11.6-14.6 [facility] Erythrocyte distribution wid th standard deviationOrdered By: Shea Rodriguez on 10-01-2024 Erythrocyte distribution width (RBC) [Ratio] 44.7 fl High 35.1-43.9 [facility] Hematocrit Auto (Bld) [Volum e fraction]Ordered By: Shea Rodriguez on 10-01-2024 Hematocrit (Bld) [Volume fraction] 36.0 % Low 37-47 [facility] Hemoglobin measurementOrdere d By: Shea Rodriguez on 10-01-2024 Hemoglobin (Bld) [Mass/Vol] 11.4 g/dL Low 12.0-15.0 [facility] Immature granulocytes/100 WB C Auto (Bld)Ordered By: Shea Rodriguez on 10-01-2024 Immature granulocytes/100 WBC (Bld) 0.300 % 0.0-0.9 [facility] Comment on above: IG% - Immature Granu locytes (promyelocytes, myelocytes and metamyelocytes) > 1% indicates that a LEFT SHIFT is Present. MCV (mean corpuscular volume ) determinationOrdered By: Shea Rodriguez on 10-01-2024 MCV (RBC) [Entitic vol] 81.1 fL 81-99 [facility] Mean corpuscular hemoglobin (MCH) determinationOrdered By: Shea Rodriguez on 10-01-2024 MCH (RBC) [Entitic mass] 25.7 pg Low 27.0-32.0 [facility] Mean corpuscular hemoglobin concentration (MCHC) determinationOrdered By: Shea Rodriguez on 10-01-2024 MCHC (RBC) [Mass/Vol] 31.7 g/dL Low 32-36 [facility] Mean platelet volume determi nationOrdered By: Shea Rodriguez on 10-01-2024 Platelet mean volume (Bld) [Entitic vol] 10.0 fL 6.2-12.0 [facility] Monocyte percentageOrdered B y: Shea Rodriguez on 10-01-2024 Monocytes/100 WBC (Bld) 5.9 % 0-10 [facility] Neutrophil percentageOrdered By: Shea Rodriguez on 10-01-2024 Neutrophils/100 WBC (Bld) 58.9 % 47-70 [facility] Nucleated red blood cell per centageOrdered By: Sheasirisha Rodriguez on 10-01-2024 Nucleated RBC/100 WBC (Bld) [Ratio] 0 % 0-5 [facility] Office Visit Reporton 10-01-2024 [facility] Office Visit Report [facility] [address], [address] [place] [address] OFFICE VISIT Date of Service: 10/01/24 MR#: [id number] Acct: [id number] Name: SAMEER CABALLERO #: [id number] : 1990 Provider: NERY hsieh Age/Sex: 34/F Location: [facility] Status: Signed Intake Vital Signs 09/17/24 13:22 09/20/24 05:07 10/01/24 09:48 10/01/24 09:53 Height 5 ft 5 in 5 ft 5 in 5 ft 5 in 5 ft 5 in Weight: 275 lb 1 oz BMI 45.8 BP 126/84 H Intake Visit Reasons: 2wk incision check, BP check *per JV 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: 2 Week Incision check Mechanical Assembly Required: No Is patient in pain?: No Allergies No Known Allergies Allergy (Verified 10/01/24 09:47) Medications ???Medication ???Instructions ???Recorded ???Confirmed ???Type ibuprofen 800 mg tablet 800 mg PO Q8H PRN pain #30 tabs 10/01/24 Rx nifedipine 30 mg tablet,extended 30 mg PO BID 30 days #60 tabs 09/0610/01/24 Rx release 24 hr (Procardia XL) labetalol 300 mg tablet 300 mg PO BID #60 tabs 10/01/24 Rx Is last menstrual period known: No Post menopausal: No Patient : No : Yes PFSH Medical History Anemia Seasonal allergies History of frequent headaches Surgical History [place] teeth extracted Family History Grandmother CVA (cerebral vascular accident) Maternal Diabetes Maternal Grandfather Myocardial infarction, Onset Age: 54 Maternal Social History adopted: No household members: spouse housing: house number of children: 0 current occupational status: employed current occupation: [employer] current occupational exposures/hazards: No pets and animals: Yes pets and animals: dog(s) history of recent travel: Yes ([place] in January) out of state: Yes [...] physical activity do you participate in: none ganesh/church: [employer] seatbelt use: always do you feel safe at home: Yes additional social history: - Mc - hankins HPI 2wk incision check, BP check *per JV Details: SAMEER CABALLERO is a 34 year old who presents for 2 week postop c section Dr Sweeney and also BP check. States home BPs WNL. Taking ibuprofen prn for discomfort but feels that she is doing well. Denies issues bowel/bladder habits History 1 Elective abortions Hx Para 0 Spontaneous abortions Hx # Term Pregnancies 1 Ectopic pregnancies Hx # Pregnancies Multiple births # of living children 1 Past Pregnancies Del. Date Name GA/Weeks Outcome Route Bth Weight Gen Labor Lgth Anesthesia [facility] Provider FOB 09/20/24 Leatha 39 live - full term 10lbs 7oz Female spinal [facility] J Mc Delivery Date: 09/20/24 Last Updated by: Mariely Vasquez RN primary cs for LGA 10lbs 7oz Exam Const General: cooperative and no acute distress Orientation: oriented x3 GI Inspection: incision (well healed, nonerythematous) Palpation: soft and nontender Coding Level of Care Code No Charge Diagnoses Postop check Z09 Iron deficiency anemia, unspecified iron deficiency anemia type D50.9 Anemia type: iron deficiency Iron deficiency anemia type: unspecified iron deficiency Status post section Z98.891 Elevated BP without diagnosis of hypertension R03.0 Assessment and Plan Assessment and Plan (1) Postop check: (2) Anemia: Status: Acute Qualifiers: Anemia type: iron deficiency Iron deficiency anemia type: unspecified iron deficiency Qualified Code(s): D50.9 - Iron deficiency anemia, unspecified Comment: enc needs to take PNV. CBC today (3) Status post section: Status: Acute Comment: primary c/s (4) Elevated BP without diagnosis of hypertension: Status: Acute Orders: Orders CBC W/Diff, Automated Today D64.9 - Anemia, unspecified Medications: Changed From labetalol 300 mg PO TID 30 days 90 tabs 0RF To labetalol 300 mg PO BID 60 tabs 2RF Plan CBC Reduce labetalol to bid and refill sent routine pp care RTO 4 weeks 10/01/24 1003 Date Shea Rodriguez LIVER TRIMMER LIVER TRIMMER-C Cosigner Signature: Date (if ju (more content not included)... Normal [facility] Platelet countOrdered By: Zachary Rodriguez on 10-01-2024 Platelets (Bld) [#/Vol] 496 10*3/uL High 150-450 [facility] RBC Auto (Bld) [#/Vol]Ordere d By: Shea Rodriguez on 10-01-2024 RBC (Bld) [#/Vol] 4.44 10*6/uL 4.2-5.4 [facility] White blood cell (WBC) count Ordered By: Shea Rodriguez on 10-01-2024 WBC (Bld) [#/Vol] 6.8 10*3/uL 4.4-11.0 [facility] CBC-Complete Blood Cnt No Di ffon 09-21-2024 Erythrocyte distribution width (RBC) [Ratio] 15.3 % High 11.6-14.6 [facility] Comment on above: Order Comment: Comme nts: Day #1Reason for Laboratory Test Performed By: #### L 100.0500 ####[facility] [address] [place], [place], [id number] Hematocrit (Bld) [Volume fraction] 26.7 % Low 37-47 [facility] Comment on above: Order Comment: Comme nts: Day #1Reason for Laboratory Test Performed By: #### L 100.0500 ####[facility] [address] [place], [address] Hemoglobin (Bld) [Mass/Vol] 8.6 g/dL Low 12.0-15.0 [facility] Comment on above: Order Comment: Comme nts: Day #1Reason for Laboratory Test Performed By: #### L 100.0500 ####[facility] [address] [place], [address] MCH (RBC) [Entitic mass] 25.8 pg Low 27.0-32.0 [facility] Comment on above: Order Comment: Comme nts: Day #1Reason for Laboratory Test Performed By: #### L 100.0500 ####[facility] [address] [place], [address] MCHC (RBC) [Mass/Vol] 32.2 g/dL Normal 32-36 [facility] Comment on above: Order Comment: Comme nts: Day #1Reason for Laboratory Test Performed By: #### L 100.0500 ####[facility] [address] [place], [address] MCV (RBC) [Entitic vol] 80.2 fL Low 81-99 [facility] Comment on above: Order Comment: Comme nts: Day #1Reason for Laboratory Test Performed By: #### L 100.0500 ####[facility] [address] [place], [address] Platelet mean volume (Bld) [Entitic vol] 10.8 fL Normal 6.2-12.0 [facility] Comment on above: Order Comment: Comme nts: Day #1Reason for Laboratory Test Performed By: #### L 100.0500 ####[facility] [address] [place], [address] Platelets (Bld) [#/Vol] 226 10*3/uL Normal 150-450 [facility] Comment on above: Order Comment: Comme nts: Day #1Reason for Laboratory Test Performed By: #### L 100.0500 ####[facility] [address] [place], [address] RBC (Bld) [#/Vol] 3.33 10*6/uL Low 4.2-5.4 [facility] Comment on above: Order Comment: Comme nts: Day #1Reason for Laboratory Test Performed By: #### L 100.0500 ####[facility] [address] [place], [address] RDW SD 43.9 fl Normal 35.1-43.9 [facility] Comment on above: Order Comment: Comme nts: Day #1Reason for Laboratory Test Performed By: #### L 100.0500 ####[facility] [address] [place], [address] WBC (Bld) [#/Vol] 13.9 10*3/uL High 4.4-11.0 [facility] Comment on above: Order Comment: Comme nts: Day #1Reason for Laboratory Test Performed By: #### L 100.0500 ####[facility] [address] [place], [address] Erythrocyte distribution wid th ratioOrdered By: Rhina Murcia on 09-21-2024 Erythrocyte distribution width (RBC) [Ratio] 15.3 % High 11.6-14.6 [facility] Erythrocyte distribution wid th standard deviationOrdered By: Rhina Murcia on 09-21-2024 Erythrocyte distribution width (RBC) [Ratio] 43.9 fl 35.1-43.9 [facility] Hematocrit Auto (Bld) [Volum e fraction]Ordered By: Rhina Murcia on 09-21-2024 Hematocrit (Bld) [Volume fraction] 26.7 % Low 37-47 [facility] Hemoglobin measurementOrdere d By: Rhina Murcia on 09-21-2024 Hemoglobin (Bld) [Mass/Vol] 8.6 g/dL Low 12.0-15.0 [facility] MCV (mean corpuscular volume ) determinationOrdered By: Rhina Murcia on 09-21-2024 MCV (RBC) [Entitic vol] 80.2 fL Low 81-99 [facility] Mean corpuscular hemoglobin (MCH) determinationOrdered By: Rhina Murcia on 09-21-2024 MCH (RBC) [Entitic mass] 25.8 pg Low 27.0-32.0 [facility] Mean corpuscular hemoglobin concentration (MCHC) determinationOrdered By: Rhina Murcia on 09-21-2024 MCHC (RBC) [Mass/Vol] 32.2 g/dL 32-36 [facility] Mean platelet volume determi nationOrdered By: Rhina Murcia on 09-21-2024 Platelet mean volume (Bld) [Entitic vol] 10.8 fL 6.2-12.0 [facility] Platelet countOrdered By: Valdemar Murcia on 09-21-2024 Platelets (Bld) [#/Vol] 226 10*3/uL 150-450 [facility] RBC Auto (Bld) [#/Vol]Ordere d By: Rhina Murcia on 09-21-2024 RBC (Bld) [#/Vol] 3.33 10*6/uL Low 4.2-5.4 [facility] White blood cell (WBC) count Ordered By: Rhina Murcia on 09-21-2024 WBC (Bld) [#/Vol] 13.9 10*3/uL High 4.4-11.0 [facility] Absolute lymphocyte countOrd ered By: Rhina Murcia on 09-20-2024 Lymphocytes Auto (Unsp spec) [#/Vol] 1.76 10*3/uL 0.83-4.51 [facility] Absolute neutrophil countOrd ered By: Rhina Murcia on 09-20-2024 Neutrophils (Bld) [#/Vol] 7.3 10*3/uL 2.0-7.7 [facility] Anion gap in Serum or Plasma Ordered By: Rhina Murcia on 09-20-2024 Anion gap [Moles/Vol] 13 mmol/L 06-20 [facility] Automated lymphocyte count a s percentage of total leukocytesOrdered By: Rhina Riccichapo on 09-20-2024 Lymphocytes/100 WBC Auto (Unsp spec) 17.9 % Low 19-41 [facility] BUN/creatinine ratioOrdered By: Rhina Riccichapo on 09-20-2024 Urea nitrogen/Creatinine [Mass ratio] 12.0 mg/mg 10-20 [facility] Basophil percentageOrdered B y: Rhina Murcia on 09-20-2024 Basophils/100 WBC (Bld) 0.4 % 0-1 [facility] Bedside Glucoseon 09-20-2024 FINGERSTICK GLU 85 mg/dL Normal 74-106 [facility] Comment on above: Result Comment: BRANNON GEMENT OF PATIENT CARE PER NURSING PROTOCOL Performed By: #### L 501.080 ####[facility] [address] [place], [address] FINGERSTICK GLU 123 mg/dL High 74-106 [facility] Comment on above: Result Comment: BRANNON GEMENT OF PATIENT CARE PER NURSING PROTOCOL Performed By: #### L 100.0100, L3890.6006, L501.0250, L509.8002 #### [facility] [address] [place], [address] Bilirubin, totalOrdered By: Rhina Riccicahpo on 09-20-2024 Bilirubin [Mass/Vol] 0.23 mg/dL 0.00-1.30 [facility] CBC W/Diff, Automatedon 09-06 Absolute Lymph 1.76 X10 3/uL Normal 0.83-4.51 [facility] Comment on above: Performed By: #### L 100.0100, L3890.6006, L501.0250, L509.8002 #### [facility] [address] [place], [address] Absolute Neut 7.3 X10 3/uL Normal 2.0-7.7 [facility] Comment on above: Performed By: #### L 100.0100, L3890.6006, L501.0250, L509.8002 #### [facility] [address] [place], [address] Basophils/100 WBC (Bld) 0.4 % Normal 0-1 [facility] Comment on above: Performed By: #### L 100.0100, L3890.6006, L501.0250, L509.8002 #### [facility] [address] [place], [address] Eosinophils/100 WBC (Bld) 1.4 % Normal 0-5 [facility] Comment on above: Performed By: #### L 100.0100, L3890.6006, L501.0250, L509.8002 #### [facility] [address] [place], [address] Erythrocyte distribution width (RBC) [Ratio] 15.4 % High 11.6-14.6 [facility] Comment on above: Performed By: #### L 100.0100, L3890.6006, L501.0250, L509.8002 #### [facility] [address] [place], [address] Hematocrit (Bld) [Volume fraction] 30.6 % Low 37-47 [facility] Comment on above: Performed By: #### L 100.0100, L3890.6006, L501.0250, L509.8002 #### [facility] [address] [place], [address] Hemoglobin (Bld) [Mass/Vol] 9.9 g/dL Low 12.0-15.0 [facility] Comment on above: Performed By: #### L 100.0100, L3890.6006, L501.0250, L509.8002 #### [facility] [address] [place], [address] IG% 0.500 Normal 0.0-0.9 [facility] Comment on above: Result Comment: IG% - Immature Granulocytes (promyelocytes, myelocytes and metamyelocytes) > 1% indicates that a LEFT SHIFT is Present. Performed By: #### L 100.0100, L3890.6006, L501.0250, L509.8002 #### [facility] [address] [place], [address] Lymphocytes/100 WBC (Bld) 17.9 % Low 19-41 [facility] Comment on above: Performed By: #### L 100.0100, L3890.6006, L501.0250, L509.8002 #### [facility] [address] [place], [address] MCH (RBC) [Entitic mass] 25.8 pg Low 27.0-32.0 [facility] Comment on above: Performed By: #### L 100.0100, L3890.6006, L501.0250, L509.8002 #### [facility] [address] [place], [address] MCHC (RBC) [Mass/Vol] 32.4 g/dL Normal 32-36 [facility] Comment on above: Performed By: #### L 100.0100, L3890.6006, L501.0250, L509.8002 #### [facility] [address] [place], [address] MCV (RBC) [Entitic vol] 79.7 fL Low 81-99 [facility] Comment on above: Performed By: #### L 100.0100, L3890.6006, L501.0250, L509.8002 #### [facility] [address] [place], [address] Monocytes/100 WBC (Bld) 6.2 % Normal 0-10 [facility] Comment on above: Performed By: #### L 100.0100, L3890.6006, L501.0250, L509.8002 #### [facility] [address] [place], [address] Neutrophils/100 WBC (Bld) 73.6 % High 47-70 [facility] Comment on above: Performed By: #### L 100.0100, L3890.6006, L501.0250, L509.8002 #### [facility] [address] [place], [address] Nucleated RBC (Bld) [#/Vol] 0 10*3/uL Normal 0-5 [facility] Comment on above: Performed By: #### L 100.0100, L3890.6006, L501.0250, L509.8002 #### [facility] [address] [place], [address] Platelet mean volume (Bld) [Entitic vol] 10.9 fL Normal 6.2-12.0 [facility] Comment on above: Performed By: #### L 100.0100, L3890.6006, L501.0250, L509.8002 #### [facility] [address] [place], [address] Platelets (Bld) [#/Vol] 251 10*3/uL Normal 150-450 [facility] Comment on above: Performed By: #### L 100.0100, L3890.6006, L501.0250, L509.8002 #### [facility] [address] [place], [address] RBC (Bld) [#/Vol] 3.84 10*6/uL Low 4.2-5.4 [facility] Comment on above: Performed By: #### L 100.0100, L3890.6006, L501.0250, L509.8002 #### [facility] [address] [place], [address] RDW SD 44.3 fl High 35.1-43.9 [facility] Comment on above: Performed By: #### L 100.0100, L3890.6006, L501.0250, L509.8002 #### [facility] [address] [place], [address] WBC (Bld) [#/Vol] 9.9 10*3/uL Normal 4.4-11.0 [facility] Comment on above: Performed By: #### L 100.0100, L3890.6006, L501.0250, L509.8002 #### [facility] [address] [place], [address] Carbon dioxide, total [Moles /volume] in Central venous bloodOrdered By: Rhina Murcia on 09-20-2024 CO2 [Moles/Vol] 18.6 mmol/L Low 21.0-32.0 [facility] Chloride assayOrdered By: Valdemar Murcia on 09-20-2024 Chloride [Moles/Vol] 106 mmol/L 98-108 [facility] Comprehensive Metabolic Prof ilon 09-20-2024 Albumin [Mass/Vol] 3.3 g/dL Low 3.5-5.0 [facility] Comment on above: Performed By: #### L 100.0100, L3890.6006, L501.0250, L509.8002 #### [facility] [address] [place], [address] Albumin/Globulin [Mass ratio] 1.7 {ratio} Normal 0.9-2.4 [facility] Comment on above: Performed By: #### L 100.0100, L3890.6006, L501.0250, L509.8002 #### [facility] [address] [place], [address] ALK PHOS 157 U/L High 35-104 [facility] Comment on above: Performed By: #### L 100.0100, L3890.6006, L501.0250, L509.8002 #### [facility] [address] [place], [address] ALT [Catalytic activity/Vol] 11 U/L Normal <=34 [facility] Comment on above: Performed By: #### L 100.0100, L3890.6006, L501.0250, L509.8002 #### [facility] [address] [place], [address] AST [Catalytic activity/Vol] 21 U/L Normal <=31 [facility] Comment on above: Performed By: #### L 100.0100, L3890.6006, L501.0250, L509.8002 #### [facility] [address] [place], [address] Bilirubin [Mass/Vol] 0.23 mg/dL Normal 0.00-1.30 [facility] Comment on above: Performed By: #### L 100.0100, L3890.6006, L501.0250, L509.8002 #### [facility] [address] [place], [address] BUN/CRE 12.0 RATIO Normal 10-20 [facility] Comment on above: Performed By: #### L 100.0100, L3890.6006, L501.0250, L509.8002 #### [facility] [address] [place], [address] Calcium [Mass/Vol] 9.0 mg/dL Normal 7.6-11.0 [facility] Comment on above: Performed By: #### L 100.0100, L3890.6006, L501.0250, L509.8002 #### [facility] [address] [place], [address] Chloride [Moles/Vol] 106 mmol/L Normal 98-108 [facility] Comment on above: Performed By: #### L 100.0100, L3890.6006, L501.0250, L509.8002 #### [facility] [address] [place], [address] CO2 [Moles/Vol] 18.6 mmol/L Low 21.0-32.0 [facility] Comment on above: Performed By: #### L 100.0100, L3890.6006, L501.0250, L509.8002 #### [facility] [address] [place], [address] Creatinine [Mass/Vol] 0.56 mg/dL Low 0.70-1.20 [facility] Comment on above: Performed By: #### L 100.0100, L3890.6006, L501.0250, L509.8002 #### [facility] [address] [place], [address] ECRCL 207.99 ml/min Normal 50-250 [facility] Comment on above: Performed By: #### L 100.0100, L3890.6006, L501.0250, L509.8002 #### [facility] [address] [place], [address] GAP 13 Normal 5-15 [facility] Comment on above: Performed By: #### L 100.0100, L3890.6006, L501.0250, L509.8002 #### [facility] [address] [place], [address] GFR/1.73 sq M.predicted among non-blacks MDRD (S/P/Bld) [Vol rate/Area] 125 mL/min/{1.73_m2} Normal >60 [facility] Comment on above: Result Comment: mL/m in/1.73m2 CKD-EPI Creatinine Equation (2020) Performed By: #### L 100.0100, L3890.6006, L501.0250, L509.8002 #### [facility] [address] [place], [address] Globulin (S) [Mass/Vol] 1.9 g/dL Low 2.2-4.2 [facility] Comment on above: Performed By: #### L 100.0100, L3890.6006, L501.0250, L509.8002 #### [facility] [address] [place], [address] Glucose [Mass/Vol] 137 mg/dL High 70-99 [facility] Comment on above: Performed By: #### L 100.0100, L3890.6006, L501.0250, L509.8002 #### [facility] [address] [place], [address] Potassium [Moles/Vol] 3.8 mmol/L Normal 3.3-5.1 [facility] Comment on above: Performed By: #### L 100.0100, L3890.6006, L501.0250, L509.8002 #### [facility] [address] [place], [address] Sodium [Moles/Vol] 138 mmol/L Normal 133-145 [facility] Comment on above: Performed By: #### L 100.0100, L3890.6006, L501.0250, L509.8002 #### [facility] [address] [place], [address] T PROT 5.2 g/dL Low 5.9-8.4 [facility] Comment on above: Performed By: #### L 100.0100, L3890.6006, L501.0250, L509.8002 #### [facility] [address] [place], [address] Urea nitrogen [Mass/Vol] 7 mg/dL Normal 4-19 [facility] Comment on above: Performed By: #### L 100.0100, L3890.6006, L501.0250, L509.8002 #### [facility] [address] [place], [address] Discharge Instructionon 09-06 Discharge Instruction [facility] Medical Records Department [address] [place] [address] Instructions for Home/Discharge Instructions 09/20/24 0720 MR#: [id number] Acct: [id number] Name: SAMEER CABALLERO Rep #: [id number] : 1990 34 From: Rhina Sweeney DO PCP: Loyd Physician,No Primary Status:ADM IN Discharge Instructions DC O2, CPAP, BIPAP needs Home O2 Discharge instructions: No Dressing / Incision Discharge Activity: May Not Drive (for 2 weeks or while taking narcotic pain medications.), May Shower and May Take a Tub Bath (in 7 days.) May resume sexual activity in: 4-6 weeks Weight Bearing Status: Full weight bearing Lifting Restrictions: 20 pounds Dressing / Incision Call your doctor if your incision/area has: Continuous Slow Oozing, Sudden Increased Bleeding, Increased Pain/ Swelling, Increased Redness and Foul Smelling Discharge Call your doctor if you observe: Fever of 101 or Higher and Using more than 1 pad per hour Suture Line Care: Avoid Pulling/Pushing and Avoid Pinching/Bending Cleanse incision/area with: Soap Water and Keep Dressing Clean Dry Follow Up Care Please Follow Up With: Rhina Sweeney DO When: Call [phone] to make an appointment for an incision check in 1-2 weeks. Test Results: Test results from this visit will be discussed in further detail at your follow-up appointment, if applicable. Discharge Plan Admission Admit Date/Time: 09/20/24 04:59 Primary Reason for Your Visit: section Attending Provider: Rhina Sweeney Primary Care Provider: Loyd Physician,No Primary Discharge Orders/Prescriptions Prescriptions: New ibuprofen 800 mg tablet 800 mg PO Q8H PRN (Reason: pain) Qty: 30 0RF oxycodone-acetaminoph en [Percocet] 5-325 mg tablet 1 tab PO Q4H PRN (Reason: pain) 7 Days Qty: 20 0RF No Action (DME) Blood Glucose Test Strip See Rx Instructions .MEDSUPPLY Qty: 120 0RF Rx Instructions: As directed-fasting 3-4 times per week (DME) blood-glucose meter Misc See Rx Instructions .MEDSUPPLY Qty: 1 0RF Rx Instructions: As directed- Test fasting 3-4 times per week (DME) lancets Misc See Rx Instructions .MEDSUPPLY Qty: 100 0RF Rx Instructions: As directed-fasting 3-4 times per week Referrals / Follow Up: Care Physician,No Primary [Primary Care Provider] - Disposition Disposition (needs filled in before D/C Order can be placed): Home, Self Care 09/20/24 07 Rhina Sweeney DO CC: No Primary Care Physician Signed Normal [facility] Eosinophil percentageOrdered By: Rhina [place] on 09-20-2024 Eosinophils/100 WBC (Bld) 1.4 % 0- [facility] Glomerular filtration rate ( GFR) estimation/1.73 sq m using serum, plasma, or whole bOrdered By: Rhina [place] on 09-20-2024 GFR/1.73 sq M.predicted among non-blacks MDRD (S/P/Bld) [Vol rate/Area] 125 mL/min/{1.73_m2} >60 [facility] Comment on above: mL/min/1.73m2 CKD-EP I Creatinine Equation (2020) [facility] deOrdered By: Rhina [place] on 09-20-2024 Glucose [Mass/Vol] 85 mg/dL 74-106 [facility] Comment on above: MANAGEMENT OF PATIEN T CARE PER NURSING PROTOCOL H AND P Exam - OB/GYNon 09-06 H&P Exam - SALES COACH [facility] Medical Records Department [address] [place] [address] H P Exam - SALES COACH 09/20/24 0716 MR#: [id number] Acct: [id number] Name: SAMEER CABALLERO Rep #: [id number] : 1990 34 From: Rhina Sweeney DO PCP: Care Physician,No Primary Status:ADM IN Location: [id number] HPI - General General Date of Admission: 09/20/24 HPI Narrative SAMEER CABALLERO, is a 34 y/o @ 39 weeks 1 day who presents to [facility] for a primary section due to LGA. Her baby's EFW on monday was 4561 grams and showed the abdominal circumference in the 100th%. She declines trial of labor. We have tested her twice for gestational diabetes and was found to be negative. She has also had some elevated blood pressures during the . Today it is elevated at 140's/90's. She is asymptomatic. Maternal Data Information LORY Calculator Estimated Delivery Date Method Current WG Current Estimate 09/26/24 LMP (Certain) 39w 1d Other Estimates 09/25/24 Ultrasound #1 39w 2d PFSH PFSH Medical History Seasonal allergies History of frequent headaches Home Medications ???Medication ???Instructions ???Recorded ???Last Taken ???Type blood sugar diagnostic (Blood #120 ea 07/03/24 Unknown Rx Glucose Test strips) blood-glucose meter #1 ea 07/03/24 Unknown Rx lancets #100 ea 07/03/24 Unknown Rx Allergy/AdvReac Type Severity Reaction Status Date / Time No Known Allergies Allergy Verified 09/20/24 05:05 Family History Grandmother CVA (cerebral vascular accident) Maternal Diabetes Maternal Grandfather Myocardial infarction, Onset Age: 54 Maternal Surgical History [place] teeth extracted Social History adopted: No household members: spouse housing: house number of children: 0 current occupational status: employed current occupation: [employer] current occupational exposures/hazards: No pets and animals: [...] physical activity do you participate in: none ganesh/church: [employer] seatbelt use: always do you feel safe at home: Yes additional social history: - Mc - hankins History 1 Elective abortions Hx Para 0 Spontaneous abortions Hx # Term Pregnancies Ectopic pregnancies Hx # Pregnancies Multiple births # of living children Visit Details Expected Delivery Route/Plan Labor Preferences- CB/BF classes: scheduled labor support person: Mc labor intervention preferences: open to epidural pain management options preferred: cut cord/dad catch: cord : yes PP control planned: discussed discussed possible routes of delivery and associated risks: [] special requests: [] Plans Covid status: [] Flu vaccine: [] Tdap vaccine: given Rhogam: na LARC form signed: yes Problem list reviewed and updated with the most current plan of care details and appropriate orders placed. Relevant counseling for the gestational age provided. Continue routine care and follow up unless otherwise noted in visit notes/problem list details OB Flowsheet Initial Weight: 267 lb Date -???-???-???-???-???- ???-???-???-???-???-? [...] next wee (more content not included)... Normal [facility] Immature granulocytes/100 WB C Auto (Bld)Ordered By: Rhina [place] on 09-20-2024 Immature granulocytes/100 WBC (Bld) 0.500 % 0.0-0.9 [facility] Comment on above: IG% - Immature Granu locytes (promyelocytes, myelocytes and metamyelocytes) > 1% indicates that a LEFT SHIFT is Present. Laboratory - Chemistry and C hemistry - challengeOrdered By: Rhina Divina on 09-20-2024 AST [Catalytic activity/Vol] 21 U/L <32 [facility] Monocyte percentageOrdered B y: Rhina Divina on 09-20-2024 Monocytes/100 WBC (Bld) 6.2 % 0-10 [facility] Neutrophil percentageOrdered By: Rhina Divina on 09-20-2024 Neutrophils/100 WBC (Bld) 73.6 % High 47-70 [facility] Nucleated red blood cell per centageOrdered By: Rhina Divina on 09-20-2024 Nucleated RBC/100 WBC (Bld) [Ratio] 0 % 0-5 [facility] Operative Reporton 5 Operative Report [facility] Medical Records Department [address] [place] [address] Operative Report 09/20/24 0824 MR#: [id number] Acct: [id number] Name: SAMEER CABALLERO Rep #: [id number] : 1990 34 From: Rhina Sweeney DO PCP: Care Physician,No Primary Status:ADM IN Location: [place] [address]-1 Assessment Plan (1) LGA (large for gestational age) fetus affecting mother, antepartum: (2) Elevated BP without diagnosis of hypertension: (3) Non-stress test nonreactive: COMMENT: in office BPP 8/. reactive on WP. d/c home (4) Abnormal glucose tolerance test during , [...] unspecified, third trimester COMMENT: PRR, , LORY 8/21/25, Mc (6) Obesity affecting : QUALIFIERS: Obesity type affecting : unspecified obesity Trimester: third trimester Qualified Code(s): O99.213 - Obesity complicating , third trimester COMMENT: HgbA1c 5.2 , BMI 44. - weekly nsts starting at 34 weeks (7) : QUALIFIERS: Weeks of gestation: 38 weeks Qualified Code(s): Z3A.38 - 38 weeks gestation of COMMENT: GBS neg, NIPT low risk, nl anatomy Maternal Data Information LORY Calculator Estimated Delivery Date Method Current WG Current Estimate 09/26/24 LMP (Certain) 39w 1d Other Estimates 09/25/24 Ultrasound #1 39w 2d Final LORY: 09/26/24 Final LORY Source: LMP Gestational age: 39 weeks 1 day Operative Report (OB) Details Procedure Type: low transverse Date of Procedure: 09/20/24 Procedure Start Time: 07:42 Procedure Stop Time: 08:42 Time of Delivery: 07:49 Pre-Operative Diagnosis: Suspected cephalopelvic disproportion and Other ( macrosomia suspected ) Other Pre-Operative diagnosis: none Post-Operative Diagnosis: Same as Pre-operative diagnosis Classification: Scheduled Type of Anesthesia: Spinal Special Medications: Exparel Antibiotic Given: Ancef 3 grams IV x1 Drain: Fernandez to straight drain Estimated Blood Loss: 700cc Findings Description of surgery: The patient is a 34 y/o @ 39 weeks 1 day with suspected macrosomia. She presented for a primary . The patient was counseled on the benefits and the risks of a trial of labor and she decided that she would like to proceed with a section only. Spinal anesthesia was placed without difficulty. Fernandez catheter was placed. The patient was placed in the dorsal supine position with leftward tilt. Patient was prepped and draped in the normal sterile fashion. Pfannenstiel skin incision was made with the scalpel and carried through to the underlying layer of fascia with the scalpel. Fascia was nicked in the midline and the incision extended laterally. The rectus bellies were dissected off superiorly and inferiorly with out complication both sharply and bluntly. The peritoneum was entered digitally. The incision was stretched and a low transverse uterine incision was made with the scalpel. The 's head was delivered atraumatically followed by the anterior and posterior shoulders without complication the rest of the delivered. The cord was clamped and cut and the was handed off to awaiting nurse. The placenta was delivered spontaneously immediately following and was noted to be intact and have a three-vessel cord. The uterus was exteriorized cleared of all clots and debris, and the incision was closed in a double layer closure using #1 Vicryl and #1 Monocryl. The ovaries and fallopian tubes were noted to be within normal limits. The uterus was returned to the maternal abdomen and gutters were cleared of all clots and debris. The peritoneum was closed with 3-0 Monocryl in a running fashion. Gloves were changed prior to fascial closure. Fascia was closed with 0 PDS in a running fashion. Subcutaneous tissue was copiously irrigated and the skin was closed with 3-0 Monocryl in a subcuticular fashion. Mepilex dressing was applied without complication. Patient was taken to recovery in stable condition. It was discussed with the patient that based on the clinical information obtained during this encounter, combined with her history, at this time I would recommend either tolac or repeat section depending on the size of the next baby for future deliveries if further pregnancies are desired. Surgical findings: viable female Leatha, wt: 10 pounds 7 oz, head circumference 15 inches. Presentation: Vertex Amniotic Membrane Rupture Type: Artificial Amniotic Fluid Description: Clear Placent (more content not included)... Normal [facility] Potassium measurement (mass/ volume)Ordered By: Rhina [place] on 09-20-2024 Potassium (Unsp spec) [Mass/Vol] 3.8 mmol/L 3.3-5.1 [facility] Protein+Creatinine Ratio,Uri neon 09-20-2024 PROT:CRE RATIO 219 mg/g CRE High 0-200 [facility] Comment on above: Performed By: #### L 501.0900 ####[facility] [address] [place], [address] Protein (U) [Mass/Vol] 7.9 mg/dL Normal 0.0-12.0 [facility] Comment on above: Performed By: #### L 501.0900 ####[facility] [address] [place], [address] UR CREAT 36.10 mg/dL Normal 28.00-217.00 [facility] Comment on above: Performed By: #### L 501.0900 ####[facility] [address] [place], [address] Random urine creatinine dequan urement (mass/volume)Ordered By: Rhina [place] on 09-20-2024 Creatinine Unsp time (U) [Mass/Vol] 36.10 mg/dL 28.00-217.00 [facility] Serum creatinine measurement (mass/volume)Ordered By: Rhina [place] on 09-20-2024 Creatinine [Mass/Vol] 0.56 mg/dL Low 0.70-1.20 [facility] Serum globulin measurementOr dered By: Rhina [place] on 09-20-2024 Globulin (S) [Mass/Vol] 1.9 g/dL Low 2.2-4.2 [facility] Serum glucose measurement (m ass/volume)Ordered By: Rhina [place] on 09-20-2024 Glucose [Mass/Vol] 137 mg/dL High 70-99 [facility] Serum or plasma alanine ferris otransferase (ALT) measurementOrdered By: Rhina [place] on 09-20-2024 ALT [Catalytic activity/Vol] 11 U/L <35 [facility] Serum or plasma albumin dequan urement (mass/volume)Ordered By: Rhina [place] on 09-20-2024 Albumin [Mass/Vol] 3.3 g/dL Low 3.5-5.0 [facility] Serum or plasma albumin/glob ulin mass ratioOrdered By: Rhina [place] on 09-20-2024 Albumin/Globulin [Mass ratio] 1.7 {ratio} 0.9-2.4 [facility] Serum or plasma alkaline ruslan sphatase measurementOrdered By: Rhina [place] on 09-20-2024 ALP [Catalytic activity/Vol] 157 U/L High 35-104 [facility] Serum or plasma calcium dequan urement (mass/volume)Ordered By: Rhina [place] on 09-20-2024 Calcium [Mass/Vol] 9.0 mg/dL 7.6-11.0 [facility] Serum or plasma urea nitroge n measurement (mass/volume)Ordered By: Rhina [place] on 09-20-2024 Urea nitrogen [Mass/Vol] 7 mg/dL 4-19 [facility] Sodium levelOrdered By: Madeline [place] on 09-20-2024 Sodium [Moles/Vol] 138 mmol/L 133-145 [facility] Syphilis Antibodieson 2024 Syphilis Abs Non-Reactive Normal Nonreactive [facility] Comment on above: Performed By: #### L 100.0100, L3890.6006, L501.0250, L509.8002 #### [facility] [address] [facility] [address] [place], [place], [id number] Total proteinOrdered By: Lynn Mur[place] on 09-20-2024 Protein [Mass/Vol] 5.2 g/dL Low 5.9-8.4 [facility] Type AND Screenon 09-20-2024 Ab SCREEN GEL Negative Normal [facility] Comment on above: Order Comment: SC-SE CTION Performed By: #### L 100.0100, L3890.6006, L501.0250, L509.8002 #### [facility] [address] [facility] [place], [place], [address] Urine protein measurement (m ass/volume)Ordered By: Rhina Murcia on 09-20-2024 Protein (U) [Mass/Vol] 7.9 mg/dL 0.0-12.0 [facility] Urine protein/creatinine mas s ratioOrdered By: Rhina [place]cia on 09-20-2024 Protein/Creatinine (U) [Mass ratio] 219 mg/g CRE High 0-200 [facility] - Chemistry and C hemistry - challengeOrdered By: Earline Andrade on 09-17-2024 Glucose Ql (U) Negative [facility] - UrinalysisOrder ed By: aErline Andrade on 09-17-2024 Protein Ql (U) Negative [facility]ologna [facility]acer Office Visit Reporton 09-17-2024 [place] Office Visit Report [facility] [address], [address] [place] [address] OFFICE VISIT Date of Service: 09/17/24 MR#: [id number] Acct: [id number] Name: SAMEER CABALLERO Rep #: [id number] : 1990 Provider: MARIO Fournier ams Age/Sex: 34/F [place] [facility] Status: Signed Intake Vital Signs 07/16/24 15:29 09/10/24 08:26 09/13/24 16:17 09/17/24 13:22 Height 5 ft 5 in 5 ft 5 in 5 ft 5 in 5 ft 5 in Weight: 314 lb 6 oz BMI 52.3 BP 138/98 H Intake Visit Reasons: 39 wk ob/nst 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: 39wk ob/nst Mechanical Assembly Required: No Is patient in pain?: No Allergies No Known Allergies Allergy (Verified 09/17/24 13:20) Medications ???Medication ???Instructions ???Recorded ???Confirmed ???Type multivit-min no.71-iron fum 28 cap PO 02/23/24 09/17/24 History mg-folate no.1 1 mg-dha 300 mg capsule (PNV-Paloma) blood sugar diagnostic (Blood #120 07/03/24 09/17/24 Rx Glucose Test strips) blood-glucose meter #1 07/03/24 09/17/24 Rx lancets #100 07/03/24 09/17/24 Rx Last Menstrual Period: 12/21/23 : No PFSH PFSH Medical History Seasonal allergies History of frequent headaches Surgical History [place] teeth extracted Family History Grandmother CVA (cerebral vascular accident) Maternal Diabetes Maternal Grandfather Myocardial infarction, Onset Age: 54 Maternal Social History adopted: No household members: spouse housing: house number of children: 0 current occupational status: employed current occupation: [employer] current occupational exposures/hazards: No pets and animals: [...] physical activity do you participate in: none ganesh/church: [employer] seatbelt use: always do you feel safe [...] next wee (more content not included)... Normal [facility] AST(SGOT)Ordered By: Earline color[place] on 09-13-2024 AST [Catalytic activity/Vol] 18 U/L Normal <=31 [facility] Comment on above: Performed By: #### L 501.0900, L100.0500, L501.1105, L501.4405, L501.4100, L501.1400 ####[facility] [address] [place], [address] Automated blood erythrocyte countOrdered By: Earline Andrade on 09-13-2024 RBC (Bld) [#/Vol] 3.96 10*6/uL Low 4.2-5.4 [facility] Comment on above: Performed By: #### L 501.0900, L100.0500, L501.1105, L501.4405, L501.4100, L501.1400 ####[facility] [address] [place], [address] Automated blood hematocrit ( percentage)Ordered By: Earline Andrade on 09-13-2024 Hematocrit (Bld) [Volume fraction] 31.8 % Low 37-47 [facility] Comment on above: Performed By: #### L 501.0900, L100.0500, L501.1105, L501.4405, L501.4100, L501.1400 ####[facility] [address] [place], [place], [address] CBC-Complete Blood Cnt No Di ffon 09-13-2024 RDW SD 43.8 fl Normal 35.1-43.9 [facility] Comment on above: Performed By: #### L 501.0900, L100.0500, L501.1105, L501.4405, L501.4100, L501.1400 ####[facility] [address] [place], [place], [address] Erythrocyte distribution wid th ratioOrdered By: Earline Andrade on 09-13-2024 Erythrocyte distribution width (RBC) [Ratio] 15.1 % High 11.6-14.6 [facility] Comment on above: Performed By: #### L 501.0900, L100.0500, L501.1105, L501.4405, L501.4100, L501.1400 ####[facility] [address] [place], [address] Erythrocyte distribution wid th standard deviationOrdered By: Earline Andrade on 09-13-2024 Erythrocyte distribution width (RBC) [Ratio] 43.8 fl 35.1-43.9 [facility] Glomerular filtration rate ( GFR) estimation/1.73 sq m using serum, plasma, or whole bOrdered By: Earline Andrade on 09-13-2024 GFR/1.73 sq M.predicted among non-blacks MDRD (S/P/Bld) [Vol rate/Area] 127 mL/min/{1.73_m2} Normal >60 [facility] Comment on above: mL/min/1.73m2 CKD-EP I Creatinine Equation (2020) Result Comment: mL/m in/1.73m2 CKD-EPI Creatinine Equation (2020) Performed By: #### L 501.0900, L100.0500, L501.1105, L501.4405, L501.4100, L501.1400 ####[facility] [address] [place], [place], [address] Hemoglobin measurementOrdere d By: Earline Andrade on 09-13-2024 Hemoglobin (Bld) [Mass/Vol] 10.3 g/dL Low 12.0-15.0 [facility] Comment on above: Performed By: #### L 501.0900, L100.0500, L501.1105, L501.4405, L501.4100, L501.1400 ####[facility] [address] [place], [place], [address] MCV (mean corpuscular volume ) determinationOrdered By: Earline Andrade on 09-13-2024 MCV (RBC) [Entitic vol] 80.3 fL Low 81-99 [facility] Comment on above: Performed By: #### L 501.0900, L100.0500, L501.1105, L501.4405, L501.4100, L501.1400 ####[facility] [address] [place], [place], [address] Mean corpuscular hemoglobin (MCH) determinationOrdered By: Earline Andrade on 09-13-2024 MCH (RBC) [Entitic mass] 26.0 pg Low 27.0-32.0 [facility] Comment on above: Performed By: #### L 501.0900, L100.0500, L501.1105, L501.4405, L501.4100, L501.1400 ####[facility] [address] [place], [place], [id number] Mean corpuscular hemoglobin concentration (MCHC) determinationOrdered By: Earline Andrade on 09-13-2024 MCHC (RBC) [Mass/Vol] 32.4 g/dL Normal 32-36 [facility] Comment on above: Performed By: #### L 501.0900, L100.0500, L501.1105, L501.4405, L501.4100, L501.1400 ####[facility] [address] [place], [place], [id number] Mean platelet volume determi nationOrdered By: Earline Andrade on 09-13-2024 Platelet mean volume (Bld) [Entitic vol] 10.9 fL Normal 6.2-12.0 [facility] Comment on above: Performed By: #### L 501.0900, L100.0500, L501.1105, L501.4405, L501.4100, L501.1400 ####[facility] [address] [place], [address] OB Biophysical Prof W/O NSTo n 09-13-2024 OB Biophysical Prof W/O NST [facility] Imaging Services [address] [place], [place] [address] OB Biophysical Prof W/O NST MR#: [id number] Acct: [id number] Name: SAMEER CABALLERO Rep #: [id number] : 1990 F 34 From: Thomas Britton MD PCP: Care Physician,No Primary Status: DEP CLI Study: OB Biophysical Prof W/O NST Date of Exam: 09/30 Exam# [id number] Ordering Dr: Earline Andrade CNM ADDENDUM by Dr. Thomas Britton MD on 09/14/24 at 0635 Voice recognition error. This was omitted. Amniotic Fluid Volume: 2/2 Movements: 2/2 Tone: 2/2 Breathin/2 Total: Position: Cephalic Reading Location: [facility] 09/14/24 0636 Date cc: MARIO Andrade; No [...] acute findings. Biophysical profile 09/13. Reading Location: [id number] CC: MARIO Andrade; No Primary Care Physician Jacquard Loom Weaver: Signed Normal [facility] OB Triage Progress Noteon OB Triage Progress Note [facility] Medical Records Department [address] [place] [address] OB Triage Progress Note 09/13/24 1631 MR#: [id number] Acct: [id number] Name: SAMEER CABALLERO Rep #: [id number] : 1990 34 From: Earline Andrade CNM PCP: Care Physician,No Primary Status:DEP CLI Y DOS: Location: WPOUT Progress Notes Date of Service: 09/13/24 Progress Note: Patient presents for triage evaluation secondary to elevated BP at home at 38.1 weeks. FHT: 140 Moderate variability reactive no decelerations category I tracing [place]: irregular Contractions Assessment and plan: normal pre [...] Multi Select Codes Visit Charges Office Visit/Consults: 23156 OV L3 Est 20min Urinary/Genital Urinary/Genital CPT Codes: 27370-43 non-stress test Interp Assessment Plan (1) Elevated BP without diagnosis of hypertension: (2) Non-stress test nonreactive: COMMENT: in office BPP /8. reactive on WP. d/c home (3) contractions: [...] (10) Seasonal allergies: 09/13/24 1635 Date Earline UPM Cosigner Signature (if applicable): Date CC: MARIO Andrade; No Primary Care Physician Signed Normal [facility] Platelet countOrdered By: Ishan Andrade on 09-13-2024 Platelets (Bld) [#/Vol] 263 10*3/uL Normal 150-450 [facility] Comment on above: Performed By: #### L 501.0900, L100.0500, L501.1105, L501.4405, L501.4100, L501.1400 ####[facility] [address] [place], [address] Protein+Creatinine Ratio,Uri neon 09-13-2024 PROT:CRE RATIO 200 mg/g CRE Normal 0-200 [facility] Comment on above: Performed By: #### L 501.0900, L100.0500, L501.1105, L501.4405, L501.4100, L501.1400 ####[facility] [address] [place], [address] UR CREAT 80.80 mg/dL Normal 28.00-217.00 [facility] Comment on above: Performed By: #### L 501.0900, L100.0500, L501.1105, L501.4405, L501.4100, L501.1400 ####[facility] [address] [place], [address] Random urine creatinine dequan urement (mass/volume)Ordered By: Earline Andrade on 09-13-2024 Creatinine Unsp time (U) [Mass/Vol] 80.80 mg/dL 28.00-217.00 [facility] Serum creatinine measurement (mass/volume)Ordered By: Earline Andrade on 09-13-2024 Creatinine [Mass/Vol] 0.51 mg/dL Low 0.70-1.20 [facility] Comment on above: Performed By: #### L 501.0900, L100.0500, L501.1105, L501.4405, L501.4100, L501.1400 ####[facility] [address] [place], [address] Serum or plasma alanine ferris otransferase (ALT) measurementOrdered By: Earline Andrade on 09-13-2024 ALT [Catalytic activity/Vol] 8 U/L Normal <=34 [facility] Comment on above: Performed By: #### L 100.0100, L3890.6006, L501.0250, L509.8002 #### [facility] Laboratory [address] [place], [address] Serum or plasma uric acid me asurement (mass/volume)Ordered By: Earline Andrade on 09-13-2024 Urate [Mass/Vol] 3.5 mg/dL 2.6-6.0 [facility] Comment on above: The drugs N-Acetylcy steine and Metamizole may falsely depress this assay. Uric Acidon 09-13-2024 URIC 3.5 mg/dL Normal 2.6-6.0 [facility] Comment on above: Result Comment: The drugs N-Acetylcysteine and Metamizole may falsely depress this assay. Performed By: #### L 501.0900, L100.0500, L501.1105, L501.4405, L501.4100, L501.1400 ####[facility] [address] [place], [address] Urine protein measurement (m ass/volume)Ordered By: Earline Andrade on 09-13-2024 Protein (U) [Mass/Vol] 16.2 mg/dL High 0.0-12.0 [facility] Comment on above: Performed By: #### L 501.0900, L100.0500, L501.1105, L501.4405, L501.4100, L501.1400 ####[facility] [address] [place], [address] Urine protein/creatinine mas s ratioOrdered By: Earline Andrade on 09-13-2024 Protein/Creatinine (U) [Mass ratio] 200 mg/g CRE 0-200 [facility] White blood cell (WBC) count Ordered By: Earline Andrade on 09-13-2024 WBC (Bld) [#/Vol] 9.3 10*3/uL Normal 4.4-11.0 [facility] Comment on above: Performed By: #### L 501.0900, L100.0500, L501.1105, L501.4405, L501.4100, L501.1400 ####[facility] [address] [place], [address] Laboratory - Chemistry and C hemistry - challengeOrdered By: Rhina Murcia on 09-10-2024 Glucose Ql (U) Negative [facility] Laboratory - UrinalysisOrder ed By: Rhina Murcia on 09-10-2024 Protein Ql (U) Negative [facility] Bologna Lacer Office Visit Reporton 09-10-2024 Bologna Lacer Office Visit Report [facility] [address], [address] [place] [address] OFFICE VISIT Date of Service: 09/10/24 MR#: [id number] Acct: [id number] Name: SAMEER CABALLERO Rep #: [id number] : 1990 Provider: Dr. Rhina Santos DO Age/Sex: 34/F Location: [facility] Status: Signed Intake Vital Signs 07/16/24 15:29 09/02/24 08:49 09/10/24 08:25 09/10/24 08:26 Height 5 ft 5 in 5 ft 5 in 5 ft 5 in 5 ft 5 in Weight: 311 lb 7 oz BMI 51.8 BP 139/88 H Intake Visit Reasons: 38 wk ob/nst Mechanical Assembly Required: No Is patient in pain?: No Allergies No Known Allergies Allergy (Verified 09/10/24 08:25) Medications ???Medication ???Instructions ???Recorded ???Confirmed ???Type multivit-min no.71-iron fum 28 cap PO 02/23/24 09/10/24 History mg-folate no.1 1 mg-dha 300 mg capsule (PNV-Paloma) blood sugar diagnostic (Blood #120 ea 07/03/24 09/10/24 Rx Glucose Test strips) blood-glucose meter #1 ea 07/03/24 09/10/24 Rx lancets #100 ea 07/03/24 09/10/24 Rx Last Menstrual Period: 12/21/23 Zika: Zika virus screening: Negative : No PFSH PFSH Medical History Seasonal allergies History of frequent headaches Surgical History [place] teeth extracted Family History Grandmother CVA (cerebral vascular accident) Maternal Diabetes Maternal Grandfather Myocardial infarction, Onset Age: 54 Maternal Social History adopted: No household members: spouse housing: house number of children: 0 current occupational status: employed current occupation: [employer] current occupational exposures/hazards: No pets and animals: Yes pets and animals: dog(s) history of recent travel: Yes ([facility] in January) out of state: [...] physical activity do you participate in: none ganesh/church: [employer] seatbelt use: always do you feel safe [...] VB. N (more content not included)... Normal [facility] Laboratory - Chemistry and C hemistry - challengeOrdered By: Rhina Murcia on 09-02-2024 Glucose Ql (U) Negative [facility] Laboratory - UrinalysisOrder ed By: Rhina Murcia on 09-02-2024 Protein Ql (U) Negative [facility] Bologna Lacer Office Visit Reporton 09-02-2024 Bologna Lacer Office Visit Report [facility] [address], [address] [place] [address] OFFICE VISIT Date of Service: 09/02/24 MR#: [id number] Acct: [id number] Name: SAMEER CABALLERO Rep #: [id number] : 1990 Provider: Dr. Rhina Santos, Age/Sex: 34/F [place] [facility] Status: Signed Intake Vital Signs 07/16/24 15:29 08/26/24 09:49 09/02/24 08:49 09/02/24 08:49 Height 5 ft 5 in 5 ft 5 in 5 ft 5 in 5 ft 5 in Weight: 300 lb 8 oz BMI 50.0 BP 132/87 H Intake Visit Reasons: 37 wk ob/nst Mechanical Assembly Required: No Is patient in pain?: No Allergies No Known Allergies Allergy (Verified 09/02/24 08:49) Medications ???Medication ???Instructions ???Recorded ???Confirmed ???Type multivit-min no.71-iron fum 28 cap PO 02/23/24 09/02/24 History mg-folate no.1 1 mg-dha 300 mg capsule (PNV-Paloma) blood sugar diagnostic (Blood #120 ea 07/03/24 09/02/24 Rx Glucose Test strips) blood-glucose meter #1 ea 07/03/24 09/02/24 Rx lancets #100 ea 07/03/24 09/02/24 Rx Last Menstrual Period: 12/21/23 Zika: Zika virus screening: Negative : No PFSH PFSH Medical History Seasonal allergies History of frequent headaches Surgical History [place] teeth extracted Family History Grandmother CVA (cerebral vascular accident) Maternal Diabetes Maternal Grandfather Myocardial infarction, Onset Age: 54 Maternal Social History adopted: No household members: spouse housing: house number of children: 0 current occupational status: employed current occupation: [employer] current occupational exposures/hazards: No pets and animals: [...] physical activity do you participate in: none ganesh/church: [employer] seatbelt use: always do you feel safe [...] VB. N (more content not included)... Normal [facility] Rule out Beta Strep (Grp. B) on 08-29-2024 RAMANDEEP Group B Beta Streptococcus is not isolated. Normal [facility] Comment on above: Performed By: #### L 100.0100, L3890.6006, L501.0250, L509.8002 #### [facility] Laboratory [address] [place], [place], [address] Urine Cultureon 08-27-2024 URC Mixed Gram Positive Organisms [place] Count 11,000-25,000 MIXC Mixed contaminants. Submit a new specimen if indicated. Normal [facility] Comment on above: Performed By: #### L 100.0100, L3890.6006, L501.0250, L509.8002 #### [facility] Laboratory [address] [place], [address] Bilirubin Test strip Ql (U)O rdered By: Earline Andrade on 08-26-2024 Bilirubin Ql (U) Negative Negative [facility] Ketones Test strip Ql (U)Ord ered By: Earline Andrade on 08-26-2024 Ketones Ql (U) Negative Negative [facility] Laboratory - Chemistry and C hemistry - challengeOrdered By: Maris Aragon on 08-26-2024 Glucose Ql (U) Negative [facility] Laboratory - UrinalysisOrder ed By: Maris Aragon on 08-26-2024 Protein Ql (U) Negative [facility] M8200.0100on 08-26-2024 M8200.0100 Negative Normal [facility] Comment on above: Performed By: #### L 100.0100, L3890.6006, L501.0250, L509.8002 #### [facility] Laboratory [address] [place], [address] OB Biophysical Prof W/O NSTo n 08-26-2024 OB Biophysical Prof W/O NST [facility] Imaging Services [address] [place] [address] OB Biophysical Prof W/O NST MR#: [id number] Acct: [id number] Name: SAMEER CABALLERO Rep #: [id number] : 1990 F 34 From: Shai Samayoa MD PCP: Care Physician,No Primary Status: DEP CLI Study: OB Biophysical Prof W/O NST Date of Exam: 08/07 03/02 Exam# [id number] Ordering Dr: Earline Andrade CNM EXAM: US [...] CC: MARIO Andrade; No Primary Care Physician Jacquard Loom Weaver: Signed Normal [facility] OB Triage Progress Noteon OB Triage Progress Note [facility] Medical Records Department [address] [place] [address] OB Triage Progress Note 08/26/24 1149 MR#: [id number] Acct: [id number] Name: SAMEER CABALLERO Rep #: [id number] : 1990 34 From: Earline Andrade CNM PCP: Care Physician,No Primary Status:REG CLI Y DOS: Location: [place] [address] Progress Notes Date of Service: 08/26/24 Progress Note: Patient presents for triage evaluation secondary to non reactive NST in the office at 35 weeks FHT: 140 Moderate variability reactive no decelerations category I tracing [place]: irregular Contractions Assessment and plan: BPP 09/13, Reactive NST, reassuring maternal and status patient discharged to home to follow-up in office at next appt. See problem list details for additional plan information. Laboratory Studies: Laboratory Tests 08/26/24 Range/Units 10:00 Urine Color Yellow (Yellow) Urine Clarity Cloudy (Clear) Urine pH 7.0 (5.0 - 8.0) Ur Specific [place] 1.015 (1.002-1.030) Urine Protein 15 H (Negative) mg/dl Urine Glucose (UA) Normal (Normal) mg/dl Urine Ketones Negative (Negative) mg/dl Urine Occult Blood Negative (Negative) /ul Urine Nitrite Negative (Negative) Urine Bilirubin Negative (Negative) mg/dL Urine Urobilinogen Normal (Normal) mg/dl Ur Leukocyte Esterase 25 H (Negative) /ul Charges/Coding Multi Select Codes Urinary/Genital Urinary/Genital CPT Codes: 14008-67 non-stress test Interp Assessment Plan (1) Non-stress [...] visit (9) Seasonal allergies: 08/26/24 1151 Date Earline Acevedo Signature (if applicable): Date CC: MARIO Andrade; No Primary Care Physician Signed Normal [facility] Bologna Lacer Office Visit Reporton 08-26-2024 Bologna Lacer Office Visit Report [facility] [address], [address] [place] [address] OFFICE VISIT Date of Service: 08/26/24 MR#: [id number] Acct: [id number] Name: SAMEER CABALLERO Rep #: [id number] : 1990 Provider: Dr. Maris yang MD Age/Sex: 34/F [place] [facility] Status: Signed Intake Vital Signs 07/16/24 15:29 08/19/24 08:37 08/26/24 08:40 Height 5 ft 5 in 5 ft 5 in 5 ft 5 in Weight: 303 lb 4 oz BMI 50.4 BP 127/84 H Intake Visit Reasons: 36 wk ob/nst Mechanical Assembly Required: No Is patient in pain?: No Allergies No Known Allergies Allergy (Verified 08/26/24 08:41) Medications ???Medication ???Instructions ???Recorded ???Confirmed ???Type multivit-min no.71-iron fum 28 cap PO 02/23/24 08/26/24 History mg-folate no.1 1 mg-dha 300 mg capsule (PNV-Paloma) blood sugar diagnostic (Blood #120 ea 07/03/24 08/26/24 Rx Glucose Test strips) blood-glucose meter #1 ea 07/03/24 08/26/24 Rx lancets #100 ea 07/03/24 08/26/24 Rx Last Menstrual Period: 12/21/23 Zika: Zika virus screening: Negative : No PFSH PFSH Medical History Seasonal allergies History of frequent headaches Surgical History [place] teeth extracted Family History Grandmother CVA (cerebral vascular accident) Maternal Diabetes Maternal Grandfather Myocardial infarction, Onset Age: 54 Maternal Social History adopted: No household members: spouse housing: house number of children: 0 current occupational status: employed current occupation: [employer] current occupational exposures/hazards: No pets and animals: Yes pets and animals: dog(s) history of recent travel: Yes ([place]) out of state: Yes [...] physical activity do you participate in: none ganesh/church: [employer] seatbelt use: always do you feel safe [...] next we (more content not included)... Normal [facility] Protein Test strip Ql (U)Ord ered By: Earline Andrade on 08-26-2024 Protein Ql (U) 15 mg/dl High Negative [facility] Screening beta-hemolytic Str eptococcus cultureOrdered By: Earline Andrade on 08-26-2024 Beta-hemolytic Streptococcus culture Group B Beta Streptococcus is not isolated. [facility] Urinalysis, Routine (Dipstic k)on 08-26-2024 BILIRUBIN URINE Negative Normal Negative [facility] Comment on above: Order Comment: LEWIS CTOR TO SPECIFY Performed By: #### L 100.0100, L3890.6006, L501.0250, L509.8002 #### [facility] Laboratory [address] [place], [address] GLUCOSE, UR Normal Normal Normal [facility] Comment on above: Order Comment: LEWIS CTOR TO SPECIFY Performed By: #### L 100.0100, L3890.6006, L501.0250, L509.8002 #### [facility] Laboratory [address] [place], [address] KETONE UR Negative Normal Negative [facility] Comment on above: Order Comment: LEWIS CTOR TO SPECIFY Performed By: #### L 100.0100, L3890.6006, L501.0250, L509.8002 #### [facility] Laboratory [address] [place], [address] LEUK ESTERASE 25 /ul Abnormal Negative [facility] Comment on above: Order Comment: LEWIS CTOR TO SPECIFY Performed By: #### L 100.0100, L3890.6006, L501.0250, L509.8002 #### [facility] Laboratory [address] [place], [address] OCCULT BLOOD-UR Negative Normal Negative [facility] Comment on above: Order Comment: LEWIS CTOR TO SPECIFY Performed By: #### L 100.0100, L3890.6006, L501.0250, L509.8002 #### [facility] Laboratory [address] [place], [address] pH UR 7.0 Normal 5.0 - 8.0 [facility] Comment on above: Order Comment: LEWIS CTOR TO SPECIFY Performed By: #### L 100.0100, L3890.6006, L501.0250, L509.8002 #### [facility] Laboratory [address] [place], [address] PROT DIPSTX 15 mg/dl Abnormal Negative [facility] Comment on above: Order Comment: LEWIS CTOR TO SPECIFY Performed By: #### L 100.0100, L3890.6006, L501.0250, L509.8002 #### [facility] Laboratory [address] [place], [address] SP.GR. DIPSTX 1.015 Normal 1.002-1.030 [facility] Comment on above: Order Comment: LEWIS CTOR TO SPECIFY Performed By: #### L 100.0100, L3890.6006, L501.0250, L509.8002 #### [facility] Laboratory [address] [place], [address] UROBILI Normal Normal Normal [facility] Comment on above: Order Comment: LEWIS CTOR TO SPECIFY Performed By: #### L 100.0100, L3890.6006, L501.0250, L509.8002 #### [facility] Laboratory [address] [place], [address] Urine clarityOrdered By: Riccardo Andrade on 08-26-2024 Clarity (U) Cloudy Normal Clear [facility] Comment on above: Order Comment: LEWIS CTOR TO SPECIFY Performed By: #### L 100.0100, L3890.6006, L501.0250, L509.8002 #### [facility] Laboratory [address] [place], [address] Urine color determinationOrd ered By: Earline Andrade on 08-26-2024 Color (U) Yellow Normal Yellow [facility] Comment on above: Order Comment: LEWIS CTOR TO SPECIFY Performed By: #### L 100.0100, L3890.6006, L501.0250, L509.8002 #### [facility] Laboratory [address] [place], [place], [address] Urine cultureOrdered By: Riccardo Andrade on 08-26-2024 Bacteria identified Cx Nom (U) Positive Abnormal [facility] Urine glucose detectionOrder ed By: Earline Andrade on 08-26-2024 Glucose Ql (U) Normal mg/dl Normal [facility] Urine leukocyte esterase det ection by dipstickOrdered By: Earline Andrade on 08-26-2024 Leukocyte esterase Test strip Ql (U) 25 /ul High Negative [facility] Urine nitrite test by dipsti ckOrdered By: Earline Andrade on 08-26-2024 Nitrite Ql (U) Negative Normal Negative [facility] Comment on above: Order Comment: LEWIS CTOR TO SPECIFY Performed By: #### L 100.0100, L3890.6006, L501.0250, L509.8002 #### [facility] Laboratory [address] [place], [address] Urine pHOrdered By: Earline mirza on 08-26-2024 pH (U) 7.0 [pH] 5.0 - 8.0 [facility] Urine specific gravity measu rementOrdered By: Earline Andrade on 08-26-2024 Specific gravity (U) [Rel density] 1.015 1.002-1.030 [facility] Urine urobilinogen measureme ntOrdered By: Earline Andrade on 08-26-2024 Urobilinogen Ql (U) Normal mg/dl Normal [facility] OB Limited With Biometricson 08-21-2024 OB Limited With Biometrics [facility] Imaging Services [address] [place], [place] [address] OB Limited With Biometrics MR#: [id number] Acct: [id number] Name: SAMEER CABALLERO Rep #: [id number] : 1990 F 34 From: Kale moyer MD PCP: Care Physician,No Primary Status: REG CLI Study: OB Limited With Biometrics Date of Exam: 08/21 Exam# [id number] Ordering Dr: Shea Rodriguez NP, NP -Ronnie [...] with the normal expected range. Reading Location: [place] [address] CC: LIVER TRIMMER-Ronnie Rodriguez; No Primary Care Physician Jacquard Loom Weaver: Signed Normal [facility] Laboratory - Chemistry and C hemistry - challengeOrdered By: Rhina Murcia on 08-19-2024 Glucose Ql (U) Negative [facility] Laboratory - UrinalysisOrder ed By: Rhina Murcia on 08-19-2024 Protein Ql (U) Negative [facility] Bologna Lacer Office Visit Reporton 08-19-2024 Bologna Lacer Office Visit Report [facility] [address], [address] [place] [address] OFFICE VISIT Date of Service: 08/19/24 MR#: [id number] Acct: [id number] Name: SAMEER CABALLERO Rep #: [id number] : 1990 Provider: Dr. Rhina Santos DO Age/Sex: 34/F [place] [facility] Status: Signed Intake Vital Signs 07/16/24 15:29 08/12/24 08:12 08/19/24 08:37 08/19/24 08:37 Height 5 ft 5 in 5 ft 5 in 5 ft 5 in 5 ft 5 in Weight: 298 lb 6 oz BMI 49.6 BP 126/77 H Intake Visit Reasons: 35 wk ob/nst 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: 35wk Ob/nst Mechanical Assembly Required: No Is patient in pain?: No Allergies No Known Allergies Allergy (Verified 08/19/24 08:35) Medications ???Medication ???Instructions ???Recorded ???Confirmed ???Type multivit-min no.71-iron fum 28 cap PO 02/23/24 08/19/24 History mg-folate no.1 1 mg-dha 300 mg capsule (PNV-Paloma) blood sugar diagnostic (Blood #120 07/03/24 08/19/24 Rx Glucose Test strips) blood-glucose meter #1 ea 07/03/24 08/19/24 Rx lancets #100 ea 07/03/24 08/19/24 Rx Last Menstrual Period: 12/21/23 : No Have you fallen in the past year?: No PFSH PFSH Medical History Seasonal allergies History of frequent headaches Surgical History [place] teeth extracted Family History Grandmother CVA (cerebral vascular accident) Maternal Diabetes Maternal Grandfather Myocardial infarction, Onset Age: 54 Maternal Social History adopted: No household members: spouse housing: house number of children: 0 current occupational status: employed current occupation: [employer] current occupational exposures/hazards: No pets and animals: [...] physical activity do you participate in: none ganesh/church: [employer] seatbelt use: always do you feel safe [...] ???-???-???-???-???-? ??-???- (more content not included)... Normal [facility] Laboratory - Chemistry and C hemistry - challengeOrdered By: Rhina Murcia on 08-12-2024 Glucose Ql (U) Negative [facility] Laboratory - UrinalysisOrder ed By: Rhina Murcia on 08-12-2024 Protein Ql (U) Negative [facility] Office Visit Reporton 08-12-2024 [facility] Office Visit Report [facility] [address], [address] [place] [address] OFFICE VISIT Date of Service: 08/12/24 MR#: [id number] Acct: [id number] Name: SAMEER CABALLERO Rep #: [id number] : 1990 Provider: Dr. Rhina Santos DO Age/Sex: 34/F [place] [facility] [place]: Signed Intake Vital Signs 07/16/24 15:29 07/30/24 08:28 08/12/24 08:11 08/12/24 08:12 Height 5 ft 5 in 5 ft 5 in 5 ft 5 in 5 ft 5 in Weight: 297 lb 6 oz BMI 49.4 BP 130/84 H Intake Visit Reasons: 34 wk ob/NST Mechanical Assembly Required: No Is patient in pain?: No Allergies No Known Allergies Allergy (Verified 08/12/24 08:11) Medications ???Medication ???Instructions ???Recorded ???Confirmed ???Type multivit-min no.71-iron fum 28 cap PO 02/23/24 08/12/24 History mg-folate no.1 1 mg-dha 300 mg capsule (PNV-Paloma) blood sugar diagnostic (Blood #120 ea 07/03/24 08/12/24 Rx Glucose Test strips) blood-glucose meter #1 ea 07/03/24 08/12/24 Rx lancets #100 ea 07/03/24 08/12/24 Rx Last Menstrual Period: 12/21/23 Zika: Zika virus screening: Negative : No PFSH PFSH Medical History Seasonal allergies History of frequent headaches Surgical History [place] teeth extracted Family History Grandmother CVA (cerebral vascular accident) Maternal Diabetes Maternal Grandfather Myocardial infarction, Onset Age: 54 Maternal Social History adopted: No household members: spouse housing: house number of children: 0 current occupational status: employed current occupation: [employer] current occupational exposures/hazards: No pets and animals: Yes pets and animals: dog(s) history of recent travel: Yes ([facility] in January) out of state: Yes [...] physical activity do you participate in: none ganesh/church: [employer] seatbelt use: always do you feel safe [...] VB. N (more content not included)... Normal [facility] Laboratory - Chemistry and C hemistry - challengeOrdered By: Shea Rodriguez on 07-30-2024 Glucose Ql (U) Negative [facility] Laboratory - UrinalysisOrder ed By: Shea Rodriguez on 07-30-2024 Protein Ql (U) Negative [facility] Office Visit Reporton 07-30-2024 [place] Office Visit Report [facility] [address], [address] [place] [address] OFFICE VISIT Date of Service: 07/30/24 MR#: [id number] Acct: [id number] Name: SAMEER CABALLERO Rep #: [id number] : 1990 Provider: LIVER TRIMMERJosefa hsieh Age/Sex: 34/F Location: [facility] [place] Status: Signed Intake Vital Signs 06/24/24 15:33 07/16/24 15:29 07/30/24 08:22 07/30/24 08:28 Height 5 ft 5 in 5 ft 5 in 5 ft 5 in 5 ft 5 in Weight: 292 lb BMI 48.6 BP 118/78 Intake Visit Reasons: 32wk ob 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: 32 Week OB Mechanical Assembly Required: No Is patient in pain?: No Allergies No Known Allergies Allergy (Verified 07/30/24 08:22) Medications ???Medication ???Instructions ???Recorded ???Confirmed ???Type multivit-min no.71-iron fum 28 cap PO 02/23/24 07/30/24 History mg-folate no.1 1 mg-dha 300 mg capsule (PNV-Paloma) blood sugar diagnostic (Blood #120 ea 07/03/24 07/30/24 Rx Glucose Test strips) blood-glucose meter #1 ea 07/03/24 07/30/24 Rx lancets #100 ea 07/03/24 07/30/24 Rx Last Menstrual Period: 12/21/23 Zika: Zika virus screening: Negative : No PFSH PFSH Medical History Seasonal allergies History of frequent headaches Surgical History [place] teeth extracted Family History Grandmother CVA (cerebral vascular accident) Maternal Diabetes Maternal Grandfather Myocardial infarction, Onset Age: 54 Maternal Social History adopted: No household members: spouse housing: house number of children: 0 current occupational status: employed current occupation: [employer] current occupational exposures/hazards: No pets and animals: [...] physical activity do you participate in: none ganesh/church: [employer] seatbelt use: always do you feel safe [...] ??-???- MH- (more content not included)... Normal [facility] OB Limited With Biometricson 07-22-2024 OB Limited With Biometrics [facility] [address] [place] [address] OB Limited With Biometrics MR#: [id number] Acct: [id number] Name: SAMEER CABALLERO Rep #: [id number] : 1990 F 34 From: Kale moyer MD PCP: Care Physician,No Primary Status: REG CLI Study: OB Limited With Biometrics Date of Exam: 07/22 Exam# [id number] Ordering Dr: Shea Rodriguez NP LIVER TRIMMER -C PROCEDURE: OB LIMITED WITH BIOMETRICS 07/22/2024 [...] 33 weeks and 0 days. Reading Location: [place] [address] CC: LIVER TRIMMER-C Shea Rodriguez; No Primary Care Physician Jacquard Loom Weaver: Signed Normal [facility] Laboratory - Chemistry and C hemistry - challengeOrdered By: Shea Rodriguez on 07-16-2024 Glucose Ql (U) Negative [facility] Laboratory - UrinalysisOrder ed By: Shea Jennifer on 07-16-2024 Protein Ql (U) Negative [facility] Office Visit Reporton 07-16-2024 [place] Office Visit Report [facility], [address] [place] [address] OFFICE VISIT Date of Service: 07/16/24 MR#: [id number] Acct: [id number] Name: SAMEER CABALLERO Rep #: [id number] : 1990 Provider: NERY hsieh Age/Sex: 34/F Location: [facility] [place] Status: Signed Intake Vital Signs 05/02/24 08:39 06/24/24 15:33 07/16/24 15:29 Height 5 ft 5 in 5 ft 5 in 5 ft 5 in Weight: 295 lb 4 oz BMI 49.1 BP 120/74 Intake Visit Reasons: 30wk ob 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: 30 Week OB Mechanical Assembly Required: No Is patient in pain?: No Allergies No Known Allergies Allergy (Verified 07/16/24 15:29) Medications ???Medication ???Instructions ???Recorded ???Confirmed ???Type multivit-min no.71-iron fum 28 cap PO 02/23/24 07/16/24 History mg-folate no.1 1 mg-dha 300 mg capsule (PNV-Paloma) blood sugar diagnostic (Blood #120 ea 07/03/24 07/16/24 Rx Glucose Test strips) blood-glucose meter #1 ea 07/03/24 07/16/24 Rx lancets #100 ea 07/03/24 07/16/24 Rx Last Menstrual Period: 12/21/23 Zika: Zika virus screening: Negative : No PFSH PFSH Medical History Seasonal allergies History of frequent headaches Surgical History [place] teeth extracted Family History Grandmother CVA (cerebral vascular accident) Maternal Diabetes Maternal Grandfather Myocardial infarction, Onset Age: 54 Maternal Social History adopted: No household members: spouse housing: house number of children: 0 current occupational status: employed current occupation: [employer] current occupational exposures/hazards: No pets and animals: [...] physical activity do you participate in: none ganesh/church: [employer] seatbelt use: always do you feel safe [...] usea resol (more content not included)... Normal [facility] Gestational GTT 3HR 100gon 0 07-03-2024 GEST GTT 100gm Normal [facility] Comment on above: Order Comment: Y Result Comment: FAST ING 96 Col: 07/03/24 0648 GLUCOSE TOLERANCE TEST FOR Reference Interval GESTATIONAL DIABETES Fasting <105 mg/dL 1 hour <190 mg/dl 2 hour <165 mg/dl 3 hour <145 mg/dl 1 HR GLU 162 Col: 07/03/24 0818 2 HR GLU 103 Col: 07/03/24 0918 3 HR GLU 134 Col: 07/03/24 1014 Performed By: #### L 100.0100, L3890.6006, L501.0250, L509.8002 #### [facility] Laboratory [facility] [place], [address] Quantitative serum or plasma 3 hour gestational glucose tolerance panelOrdered By: Rhina Murcia on 07-03-2024 Glucose tolerance 3 hours gestational panel See comment [facility] Comment on above: FASTING 96 Col: [...] Auto (Unsp spec) [#/Vol] 1.97 10*3/uL 0.83-4.51 [facility] Absolute neutrophil countOrd ered By: Rhina Murcia on 06-24-2024 Neutrophils (Bld) [#/Vol] 7.8 10*3/uL High 2.0-7.7 [facility] Automated lymphocyte count a s percentage of total leukocytesOrdered By: Rhina Murcia on 06-24-2024 Lymphocytes/100 WBC Auto (Unsp spec) 18.8 % Low 19-41 [facility] Basophil percentageOrdered B y: Rhina Murcia on 06-24-2024 Basophils/100 WBC (Bld) 0.2 % 0-1 [facility] CBC W/Diff, Automatedon 06-06 Absolute Lymph 1.97 X10 3/uL Normal 0.83-4.51 [facility] Comment on above: Performed By: #### L 100.0100, L3890.6006, L501.0250, L509.8002 #### [facility] [address] [place], [address] Absolute Neut 7.8 X10 3/uL High 2.0-7.7 [facility] Comment on above: Performed By: #### L 100.0100, L3890.6006, L501.0250, L509.8002 #### [facility] [address] [place], [address] Basophils/100 WBC (Bld) 0.2 % Normal 0-1 [facility] Comment on above: Performed By: #### L 100.0100, L3890.6006, L501.0250, L509.8002 #### [facility] [address] [place], [address] Eosinophils/100 WBC (Bld) 1.0 % Normal 0-5 [facility] Comment on above: Performed By: #### L 100.0100, L3890.6006, L501.0250, L509.8002 #### [facility] [address] [place], [address] Erythrocyte distribution width (RBC) [Ratio] 14.4 % Normal 11.6-14.6 [facility] Comment on above: Performed By: #### L 100.0100, L3890.6006, L501.0250, L509.8002 #### [facility] [address] [place], [address] Hematocrit (Bld) [Volume fraction] 33.4 % Low 37-47 [facility] Comment on above: Performed By: #### L 100.0100, L3890.6006, L501.0250, L509.8002 #### [facility] [address] [place], [address] Hemoglobin (Bld) [Mass/Vol] 11.0 g/dL Low 12.0-15.0 [facility] Comment on above: Performed By: #### L 100.0100, L3890.6006, L501.0250, L509.8002 #### [facility] [address] [place], [address] IG% 0.500 Normal 0.0-0.9 [facility] Comment on above: Result Comment: IG% - Immature Granulocytes (promyelocytes, myelocytes and metamyelocytes) > 1% indicates that a LEFT SHIFT is Present. Performed By: #### L 100.0100, L3890.6006, L501.0250, L509.8002 #### [facility] [address] [place], [address] Lymphocytes/100 WBC (Bld) 18.8 % Low 19-41 [facility] Comment on above: Performed By: #### L 100.0100, L3890.6006, L501.0250, L509.8002 #### [facility] [address] [place], [address] MCH (RBC) [Entitic mass] 27.9 pg Normal 27.0-32.0 [facility] Comment on above: Performed By: #### L 100.0100, L3890.6006, L501.0250, L509.8002 #### [facility] [address] [place], [address] MCHC (RBC) [Mass/Vol] 32.9 g/dL Normal 32-36 [facility] Comment on above: Performed By: #### L 100.0100, L3890.6006, L501.0250, L509.8002 #### [facility] [address] [place], [address] MCV (RBC) [Entitic vol] 84.8 fL Normal 81-99 [facility] Comment on above: Performed By: #### L 100.0100, L3890.6006, L501.0250, L509.8002 #### [facility] [address] [place], [address] Monocytes/100 WBC (Bld) 5.0 % Normal 0-10 [facility] Comment on above: Performed By: #### L 100.0100, L3890.6006, L501.0250, L509.8002 #### [facility] [address] [place], [address] Neutrophils/100 WBC (Bld) 74.5 % High 47-70 [facility] Comment on above: Performed By: #### L 100.0100, L3890.6006, L501.0250, L509.8002 #### [facility] [address] [place], [address] Nucleated RBC (Bld) [#/Vol] 0 10*3/uL Normal 0-5 [facility] Comment on above: Performed By: #### L 100.0100, L3890.6006, L501.0250, L509.8002 #### [facility] [address] [place], [address] Platelet mean volume (Bld) [Entitic vol] 10.4 fL Normal 6.2-12.0 [facility] Comment on above: Performed By: #### L 100.0100, L3890.6006, L501.0250, L509.8002 #### [facility] [address] [place], [address] Platelets (Bld) [#/Vol] 290 10*3/uL Normal 150-450 [facility] Comment on above: Performed By: #### L 100.0100, L3890.6006, L501.0250, L509.8002 #### [facility] [address] [place], [address] RBC (Bld) [#/Vol] 3.94 10*6/uL Low 4.2-5.4 [facility] Comment on above: Performed By: #### L 100.0100, L3890.6006, L501.0250, L509.8002 #### [facility] [address] [place], [address] RDW SD 44.6 fl High 35.1-43.9 [facility] Comment on above: Performed By: #### L 100.0100, L3890.6006, L501.0250, L509.8002 #### [facility] [address] [place], [address] WBC (Bld) [#/Vol] 10.5 10*3/uL Normal 4.4-11.0 [facility] Comment on above: Performed By: #### L 100.0100, L3890.6006, L501.0250, L509.8002 #### [facility] [address] [place], [place], [address] Eosinophil percentageOrdered By: Rhina Divina on 06-24-2024 Eosinophils/100 WBC (Bld) 1.0 % 0-5 [facility] Erythrocyte distribution wid th ratioOrdered By: Rhina Divina on 06-24-2024 Erythrocyte distribution width (RBC) [Ratio] 14.4 % 11.6-14.6 [facility] Erythrocyte distribution wid th standard deviationOrdered By: Rhina Riccichapo on 06-24-2024 Erythrocyte distribution width (RBC) [Ratio] 44.6 fl High 35.1-43.9 [facility] Glucose Challenge Gest 1H 50 abdirahman 06-24-2024 GLU GEST 50g 1H 139 mg/dL Normal 70-140 [facility] Comment on above: Performed By: #### L 100.0100, L3890.6006, L501.0250, L509.8002 #### [facility] [address] [place], [address] Glucose measurement at 2 virgen rs post-dose gestational glucose tolerance testOrdered By: Rhina Murcia on 06-24-2024 Glucose [Mass/Vol] 139 mg/dL 70-140 [facility] HIVon 06-24-2024 HIV Non-Reactive Normal Nonreactive [facility] Comment on above: Result Comment: Non- Reactive Reactive Repeatedly reactive samples must be confirmed according to CDC recommended confirmatory algorithms. The subresults for either HIVAG or AHIV can be used as an aid in the selection of the confirmation algorithm for reactive samples. Send out specimens with Reactive results to [facility] for confirmation. Order the HIV antibody detection and differentiation: lc#[id number] Performed By: #### L 100.0100, L3890.6006, L501.0250, L509.8002 #### [facility] [address] [place], [place], [address] Hematocrit Auto (Bld) [Volum e fraction]Ordered By: Rhina Murcia on 06-24-2024 Hematocrit (Bld) [Volume fraction] 33.4 % Low 37-47 [facility] Hemoglobin measurementOrdere d By: Rhina Murcia on 06-24-2024 Hemoglobin (Bld) [Mass/Vol] 11.0 g/dL Low 12.0-15.0 [facility] Immature granulocytes/100 WB C Auto (Bld)Ordered By: Rhina Murcia on 06-24-2024 Immature granulocytes/100 WBC (Bld) 0.500 % 0.0-0.9 [facility] Comment on above: IG% - Immature Granu locytes (promyelocytes, myelocytes and metamyelocytes) > 1% indicates that a LEFT SHIFT is Present. Laboratory - Chemistry and C hemistry - challengeOrdered By: Rhina Murcia on 06-24-2024 Glucose Ql (U) Negative [facility] Laboratory - UrinalysisOrder ed By: Rhina Murcia on 06-24-2024 Protein Ql (U) Negative [facility] MCV (mean corpuscular volume ) determinationOrdered By: Rhina Murcia on 06-24-2024 MCV (RBC) [Entitic vol] 84.8 fL 81-99 [facility] Mean corpuscular hemoglobin (MCH) determinationOrdered By: Rhina Murcia on 06-24-2024 MCH (RBC) [Entitic mass] 27.9 pg 27.0-32.0 [facility] Mean corpuscular hemoglobin concentration (MCHC) determinationOrdered By: Rhina Murcia on 06-24-2024 MCHC (RBC) [Mass/Vol] 32.9 g/dL 32-36 [facility] Mean platelet volume determi nationOrdered By: Rhina Murcia on 06-24-2024 Platelet mean volume (Bld) [Entitic vol] 10.4 fL 6.2-12.0 [facility] Monocyte percentageOrdered B y: Rhina Murcia on 06-24-2024 Monocytes/100 WBC (Bld) 5.0 % 0-10 [facility] Neutrophil percentageOrdered By: Rhina Murcia on 06-24-2024 Neutrophils/100 WBC (Bld) 74.5 % High 47-70 [facility] No Panel InformationOrdered By: Rhina Murcia on 06-24-2024 HIV (1&2) Antibody Non-Reactive Nonreactive [facility] Comment on above: Non-ReactiveReactive Repeatedly reactive samples must be confirmed according to CDC recommended confirmatory algorithms. The subresults for either HIVAG or AHIV can be used as an aid in the selection of the confirmation algorithm for reactive samples.Send out specimens with Reactive results to [facility] for confirmation.Order the HIV antibody detection and differentiation: #[id number] Nucleated red blood cell per centageOrdered By: Rhina Murcia on 06-24-2024 Nucleated RBC/100 WBC (Bld) [Ratio] 0 % 0-5 [facility] Office Visit Reporton 06-24-2024 [facility] Office Visit Report [facility], [address] [place] [address] OFFICE VISIT Date of Service: 06/24/24 MR#: [id number] Acct: [id number] Name: SAMEER CABALLERO Rep #: [id number] : 1990 Provider: Dr. Rhina Santos DO Age/Sex: 34/F [place] [facility] Status: Signed Intake Vital Signs 05/02/24 08:23 05/02/24 08:39 05/29/24 07:31 06/24/24 15:31 06/24/24 15:33 Height 5 ft 5 in 5 ft 5 in 5 ft 5 in 5 ft 5 in 5 ft 5 in Weight: 291 lb 4 oz BMI 48.4 BP 127/83 H Intake Visit Reasons: 27wk ob/glucose Mechanical Assembly Required: No Is patient in pain?: No Allergies No Known Allergies Allergy (Verified 06/24/24 15:31) Medications ???Medication ???Instructions ???Recorded ???Confirmed ???Type multivit-min no.71-iron fum 28 cap PO 02/23/24 06/24/24 History mg-folate no.1 1 mg-dha 300 mg capsule (PNV-Paloma) Last Menstrual Period: 12/21/23 Zika: Zika virus screening: Negative : No PFSH PFSH Medical History Seasonal allergies History of frequent headaches Surgical History [place] teeth extracted Family History Grandmother CVA (cerebral vascular accident) Maternal Diabetes Maternal Grandfather Myocardial infarction, Onset Age: 54 Maternal Social History adopted: No household members: spouse housing: house number of children: 0 current occupational status: employed current occupation: [employer] current occupational exposures/hazards: No pets and animals: Yes pets and animals: dog(s) history of recent travel: Yes ([employer] [place] in January) out of state: Yes [...] physical activity do you participate in: none ganesh/church: [employer] seatbelt use: always do you feel safe [...] -???-???-???-???-???- ?? (more content not included)... Normal [facility] Platelet countOrdered By: Valdemar Murcia on 06-24-2024 Platelets (Bld) [#/Vol] 290 10*3/uL 150-450 [facility] RBC Auto (Bld) [#/Vol]Ordere d By: Rhina Murcia on 06-24-2024 RBC (Bld) [#/Vol] 3.94 10*6/uL Low 4.2-5.4 [facility] Syphilis Antibodieson 2024 Syphilis Abs Non-Reactive Normal Nonreactive [facility] Comment on above: Performed By: #### L 100.0100, L3890.6006, L501.0250, L509.8002 #### [facility] [address] [place], [address] White blood cell (WBC) count Ordered By: Rhina Murcia on 06-24-2024 WBC (Bld) [#/Vol] 10.5 10*3/uL 4.4-11.0 [facility] Laboratory - Chemistry and C hemistry - challengeOrdered By: Earline Andrade on 05-29-2024 Glucose Ql (U) Negative [facility] Laboratory - UrinalysisOrder ed By: Earline Andrade on 05-29-2024 Protein Ql (U) Negative [facility] Office Visit Reporton 05-29-2024 [place] Office Visit Report [facility] [address], [address] [place] [address] OFFICE VISIT Date of Service: 05/29/24 MR#: [id number] Acct: [id number] Name: SAMEER CABALLERON Rep #: [id number] : 1990 Provider: MARIO Fournier ams Age/Sex: 34/F Location: [facility] Status: Signed Intake Vital Signs 03/01/24 14:33 05/02/24 08:39 05/29/24 07:25 05/29/24 07:31 Height 5 ft 5 in 5 ft 5 in 5 ft 5 in 5 ft 5 in Weight: 285 lb 6 oz BMI 47.5 BP 120/80 Intake Visit Reasons: 23wk ob Mechanical Assembly Required: No Is patient in pain?: No Allergies No Known Allergies Allergy (Verified 05/29/24 07:23) Medications ???Medication ???Instructions ???Recorded ???Confirmed ???Type multivit-min no.71-iron fum 28 cap PO 02/23/24 05/29/24 History mg-folate no.1 1 mg-dha 300 mg capsule (PNV-Paloma) Last Menstrual Period: 12/21/23 Do you think of yourself as: straight/heterosexual Current gender identity: female Zika: Zika virus screening: Negative : No PFSH PFSH Medical History Seasonal allergies History of frequent headaches Surgical History [place] teeth extracted Family History Grandmother CVA (cerebral vascular accident) Maternal Diabetes Maternal Grandfather Myocardial infarction, Onset Age: 54 Maternal Social History adopted: No household members: spouse housing: house number of children: 0 current occupational status: employed current occupation: [employer] current occupational exposures/hazards: No pets and animals: [...] physical activity do you participate in: none ganesh/church: [employer] seatbelt use: always do you feel safe [...] -???-???-???-???-???- ???-???- (more content not included)... Normal [facility] Laboratory - Chemistry and C hemistry - challengeOrdered By: Shea Rodriguez on 05-02-2024 Glucose Ql (U) Negative [facility] Laboratory - UrinalysisOrder ed By: Shea Rodriguez on 05-02-2024 Protein Ql (U) Negative [facility] Office Visit Reporton 05-02-2024 [place] Office Visit Report [facility] [address], [address] [place] [address] OFFICE VISIT Date of Service: 05/02/24 MR#: [id number] Acct: [id number] Name: SAMEER CABALLERO Rep #: [id number] : 1990 Provider: NERY hsieh Age/Sex: 33/F Location: [facility] [place] Status: Signed Intake Vital Signs 03/01/24 14:33 04/02/24 09:19 05/02/24 08:23 Height 5 ft 5 in 5 ft 5 in 5 ft 5 in Weight: 278 lb 2 oz BMI 46.3 BP 126/84 H Intake Visit Reasons: 18 wk ob 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: 18 Week OB Mechanical Assembly Required: No Is patient in pain?: No Allergies No Known Allergies Allergy (Verified 05/02/24 08:23) Medications ???Medication ???Instructions ???Recorded ???Confirmed ???Type multivit-min no.71-iron fum 28 cap PO 02/23/24 05/02/24 History mg-folate no.1 1 mg-dha 300 mg capsule (PNV-Paloma) Last Menstrual Period: 12/21/23 Zika: Zika virus screening: Negative : No PFSH PFSH Medical History Seasonal allergies History of frequent headaches Surgical History [place] teeth extracted Family History Grandmother CVA (cerebral vascular accident) Maternal Diabetes Maternal Grandfather Myocardial infarction, Onset Age: 54 Maternal Social History adopted: No household members: spouse housing: house number of children: 0 current occupational status: employed current occupation: [employer] current occupational exposures/hazards: No pets and animals: Yes pets and animals: dog(s) history of recent travel: Yes ([facility] in January) out of state: Yes [...] physical activity do you participate in: none ganesh/church: [employer] seatbelt use: always do you feel safe [...] to care (more content not included)... Normal [facility] Hemoglobin A1con 04-03-2024 HbA1c (Bld) [Mass fraction] 5.2 % Low <=5.6 [facility] Comment on above: Performed By: #### L 3890.6102, L100.0100, L501.9985, L3890.6301, L3890.6006, L509.4006, L509.8002, BTS, L900.0098 ####[facility] [id number] [place], [place], [id number] L3890.6102on 04-03-2024 HEP B Surf Ag Non-Reactive Normal Nonreactive [facility] Comment on above: Result Comment: Reac tive: Presumptive evidence of HBV. Repeatedly reactive samples must be confirmed using a neutralization test (Elecsys HBsAg Confirmatory Test) Non-Reactive: HBsAg not detected; does not exclude the possibility of exposure to HBV Performed By: #### L 3890.6102, L100.0100, L501.9985, L3890.6301, L3890.6006, L509.4006, L509.8002, BTS, L900.0098 ####[facility] [id number] [place], [place], [id number] Absolute lymphocyte countOrd ered By: Earline Andrade on 04-02-2024 Lymphocytes Auto (Unsp spec) [#/Vol] 2.43 10*3/uL 0.83-4.51 [facility] Absolute neutrophil countOrd ered By: Earline Andrade on 04-02-2024 Neutrophils (Bld) [#/Vol] 6.7 10*3/uL 2.0-7.7 [facility] Automated lymphocyte count a s percentage of total leukocytesOrdered By: Earline Andrade on 04-02-2024 Lymphocytes/100 WBC Auto (Unsp spec) 24.8 % -41 [facility] Basophil percentageOrdered B y: Earline Andrade on 04-02-2024 Basophils/100 WBC (Bld) 0.3 % 0-1 [facility] CBC W/Diff, Automatedon 03-10 Absolute Lymph 2.43 X10 3/uL Normal 0.83-4.51 [facility] Comment on above: Performed By: #### L 3890.6102, L100.0100, L501.9985, L3890.6301, L3890.6006, L509.4006, L509.8002, BTS, L900.0098 #### [facility] Laboratory [address] [place], [address] Absolute Neut 6.7 X10 3/uL Normal 2.0-7.7 [facility] Comment on above: Performed By: #### L 3890.6102, L100.0100, L501.9985, L3890.6301, L3890.6006, L509.4006, L509.8002, BTS, L900.0098 #### [facility] Laboratory [address] [place], [address] Basophils/100 WBC (Bld) 0.3 % Normal 0-1 [facility] Comment on above: Performed By: #### L 3890.6102, L100.0100, L501.9985, L3890.6301, L3890.6006, L509.4006, L509.8002, BTS, L900.0098 #### [facility] [address] [place], [address] Eosinophils/100 WBC (Bld) 1.3 % Normal 0-5 [facility] Comment on above: Performed By: #### L 3890.6102, L100.0100, L501.9985, L3890.6301, L3890.6006, L509.4006, L509.8002, BTS, L900.0098 #### [facility] [address] [place], [address] Erythrocyte distribution width (RBC) [Ratio] 13.6 % Normal 11.6-14.6 [facility] Comment on above: Performed By: #### L 3890.6102, L100.0100, L501.9985, L3890.6301, L3890.6006, L509.4006, L509.8002, BTS, L900.0098 #### [facility] [address] [place], [address] Hematocrit (Bld) [Volume fraction] 38.5 % Normal 37-47 [facility] Comment on above: Performed By: #### L 3890.6102, L100.0100, L501.9985, L3890.6301, L3890.6006, L509.4006, L509.8002, BTS, L900.0098 #### [facility] [address] [place], [address] Hemoglobin (Bld) [Mass/Vol] 13.0 g/dL Normal 12.0-15.0 [facility] Comment on above: Performed By: #### L 3890.6102, L100.0100, L501.9985, L3890.6301, L3890.6006, L509.4006, L509.8002, BTS, L900.0098 #### [facility] [address] [place], [address] IG% 0.300 Normal 0.0-0.9 [facility] Comment on above: Result Comment: IG% - Immature Granulocytes (promyelocytes, myelocytes and metamyelocytes) > 1% indicates that a LEFT SHIFT is Present. Performed By: #### L 3890.6102, L100.0100, L501.9985, L3890.6301, L3890.6006, L509.4006, L509.8002, BTS, L900.0098 #### [facility] [address] [place], [address] Lymphocytes/100 WBC (Bld) 24.8 % Normal 19-41 [facility] Comment on above: Performed By: #### L 3890.6102, L100.0100, L501.9985, L3890.6301, L3890.6006, L509.4006, L509.8002, BTS, L900.0098 #### [facility] [address] [place], [address] MCH (RBC) [Entitic mass] 28.1 pg Normal 27.0-32.0 [facility] Comment on above: Performed By: #### L 3890.6102, L100.0100, L501.9985, L3890.6301, L3890.6006, L509.4006, L509.8002, BTS, L900.0098 #### [facility] [address] [place], [address] MCHC (RBC) [Mass/Vol] 33.8 g/dL Normal 32-36 [facility] Comment on above: Performed By: #### L 3890.6102, L100.0100, L501.9985, L3890.6301, L3890.6006, L509.4006, L509.8002, BTS, L900.0098 #### [facility] [address] [facility] [place], [address] MCV (RBC) [Entitic vol] 83.2 fL Normal 81-99 [facility] Comment on above: Performed By: #### L 3890.6102, L100.0100, L501.9985, L3890.6301, L3890.6006, L509.4006, L509.8002, BTS, L900.0098 #### [facility] [address] [place] [place], [address] Monocytes/100 WBC (Bld) 5.2 % Normal 0-10 [facility] Comment on above: Performed By: #### L 3890.6102, L100.0100, L501.9985, L3890.6301, L3890.6006, L509.4006, L509.8002, BTS, L900.0098 #### [facility] [address] [place], [address] Neutrophils/100 WBC (Bld) 68.1 % Normal 47-70 [facility] Comment on above: Performed By: #### L 3890.6102, L100.0100, L501.9985, L3890.6301, L3890.6006, L509.4006, L509.8002, BTS, L900.0098 #### [facility] [address] [place], [address] Nucleated RBC (Bld) [#/Vol] 0 10*3/uL Normal 0-5 [facility] Comment on above: Performed By: #### L 3890.6102, L100.0100, L501.9985, L3890.6301, L3890.6006, L509.4006, L509.8002, BTS, L900.0098 #### [facility] [address] [place], [address] Platelet mean volume (Bld) [Entitic vol] 11.4 fL Normal 6.2-12.0 [facility] Comment on above: Performed By: #### L 3890.6102, L100.0100, L501.9985, L3890.6301, L3890.6006, L509.4006, L509.8002, BTS, L900.0098 #### [facility] [address] [place], [address] Platelets (Bld) [#/Vol] 269 10*3/uL Normal 150-450 [facility] Comment on above: Performed By: #### L 3890.6102, L100.0100, L501.9985, L3890.6301, L3890.6006, L509.4006, L509.8002, BTS, L900.0098 #### [facility] [address] [place], [address] RBC (Bld) [#/Vol] 4.63 10*6/uL Normal 4.2-5.4 [facility] Comment on above: Performed By: #### L 3890.6102, L100.0100, L501.9985, L3890.6301, L3890.6006, L509.4006, L509.8002, BTS, L900.0098 #### [facility] [address] [place], [address] RDW SD 41.1 fl Normal 35.1-43.9 [facility] Comment on above: Performed By: #### L 3890.6102, L100.0100, L501.9985, L3890.6301, L3890.6006, L509.4006, L509.8002, BTS, L900.0098 #### [facility] [address] [place], [address] WBC (Bld) [#/Vol] 9.8 10*3/uL Normal 4.4-11.0 [facility] Comment on above: Performed By: #### L 3890.6102, L100.0100, L501.9985, L3890.6301, L3890.6006, L509.4006, L509.8002, BTS, L900.0098 #### [facility] [address] [facility] [place], [address] Eosinophil percentageOrdered By: Earline Andrade on 04-02-2024 Eosinophils/100 WBC (Bld) 1.3 % 0-5 [facility] Erythrocyte distribution wid th ratioOrdered By: Earline Andrade on 04-02-2024 Erythrocyte distribution width (RBC) [Ratio] 13.6 % 11.6-14.6 [facility] Erythrocyte distribution wid th standard deviationOrdered By: Earline Andrade on 04-02-2024 Erythrocyte distribution width (RBC) [Entitic vol] 41.1 fL 35.1-43.9 [facility] Erythrocyte distribution width (RBC) [Ratio] 41.1 fl 35.1-43.9 [facility] HBV surface Ag Ql (S)Ordered By: Earline Andrade on 04-02-2024 Hepatitis B Surface Antigen Non-Reactive Nonreactive [facility] Comment on above: Reactive: Presumptiv e evidence of HBV. Repeatedly reactive samples must be confirmed using a neutralization test (Elecsys HBsAg Confirmatory Test)Non-Reactive: HBsAg not detected; does not exclude the possibility of exposure to HBV Hematocrit Auto (Bld) [Volum e fraction]Ordered By: Earline Andrade on 04-02-2024 Hematocrit (Bld) [Volume fraction] 38.5 % 37-47 [facility] Hemoglobin A1c percentageOrd ered By: Earline Andrade on 04-02-2024 HbA1c (Bld) [Mass fraction] 5.2 % Low >5.7 [facility] Hemoglobin measurementOrdere d By: Earline Andrade on 04-02-2024 Hemoglobin (Bld) [Mass/Vol] 13.0 g/dL 12.0-15.0 [facility] Hepatitis C antibodyOrdered By: Earline Andrade on 04-02-2024 Hepatitis C Antibody Non-Reactive Nonreactive [facility] Comment on above: Reactive: Presumptiv e evidence of antibodies to HCV. Follow CDC recommendations for supplemental testing.Non-Reactive: Antibodies to HCV were not detected; does not exclude the possibility of exposure to HCVReactive Results are presumptive evidence of antibodies to HCV. Follow CDC recommendations for supplemental testing.Order confirmation testing: HCV Quant by PCR testing - HCVPCR #[id number] Non Reactive: < 0.8 Equivocal: >/= 0.8 to < 1.0 Reactive: >/= 1.0The CDC requires that a reactive/equivocal HCV antibody result be sent out for confirmation. HCV Quant by PCR testing. Immature granulocytes/100 WB C Auto (Bld)Ordered By: Earline Andrade on 04-02-2024 Immature granulocytes/100 WBC (Bld) 0.300 % 0.0-0.9 [facility] Comment on above: IG% - Immature Granu locytes (promyelocytes, myelocytes and metamyelocytes) > 1% indicates that a LEFT SHIFT is Present. L3890.6006on 04-02-2024 HIV Non-Reactive Normal Nonreactive [facility] Comment on above: Result Comment: Non- Reactive Reactive Repeatedly reactive samples must be confirmed according to CDC recommended confirmatory algorithms. The subresults for either HIVAG or AHIV can be used as an aid in the selection of the confirmation algorithm for reactive samples. [facility] Order the HIV antibody detection and differentiation: [id number] Performed By: #### L 3890.6102, L100.0100, L501.9985, L3890.6301, L3890.6006, L509.4006, L509.8002, BTS, L900.0098 ####[facility] [address] [facility]. [place], [place], [address] L3890.6301on 04-02-2024 Hepatitis C Ab Non-Reactive Normal Nonreactive [facility] Comment on above: Result Comment: Reac tive: Presumptive evidence of antibodies to HCV. Follow CDC recommendations for supplemental testing. Non-Reactive: Antibodies to HCV were not detected; does not exclude the possibility of exposure to HCV Reactive Results are presumptive evidence of antibodies to HCV. Follow CDC recommendations for supplemental testing. Order confirmation testing: HCV Quant by PCR testing - HCVPCR #[id number] Non Reactive: < 0.8 Equivocal: >/= 0.8 to < 1.0 Reactive: >/= 1.0 The CDC requires that a reactive/equivocal HCV antibody result be sent out for confirmation. HCV Quant by PCR testing. Performed By: #### L 3890.6102, L100.0100, L501.9985, L3890.6301, L3890.6006, L509.4006, L509.8002, BTS, L900.0098 ####[facility] [address] [facility]. [place], [place], [address] L509.4006on 04-02-2024 Rubella IgG REAC Normal Nonreactive [facility] Comment on above: Result Comment: Anti body Result: Interpretation Non-Reactive: Non-Immune Reactive: Immune The following results were obtained with the Elecsys Rubella IgG assay. Results from assays of other manufacturers cannot be used interchangeably. Performed By: #### L 3890.6102, L100.0100, L501.9985, L3890.6301, L3890.6006, L509.4006, L509.8002, BTS, L900.0098 ####[facility] [address] [place], [address] L509.8002on 04-02-2024 Syphilis Abs Non-Reactive Normal Nonreactive [facility] Comment on above: Performed By: #### L 3890.6102, L100.0100, L501.9985, L3890.6301, L3890.6006, L509.4006, L509.8002, BTS, L900.0098 ####[facility] [address], [address] Laboratory - Chemistry and C hemistry - challengeOrdered By: Maris Aragon on 04-02-2024 Glucose Ql (U) Negative [facility] Laboratory - Microbiology an d Antimicrobial susceptibilityOrdered By: Earline Andrade on 04-02-2024 HBV surface Ag Ql (S) Non-Reactive Nonreactive [facility] Comment on above: Reactive: Presumptiv e evidence of HBV. Repeatedly reactive samples must be confirmed using a neutralization test (Elecsys HBsAg Confirmatory Test)Non-Reactive: HBsAg not detected; does not exclude the possibility of exposure to HBV Laboratory - UrinalysisOrder ed By: Maris Aragon on 04-02-2024 Protein Ql (U) Negative [facility] Lymphocytes Auto (Unsp spec) [#/Vol]Ordered By: Earline Andrade on 04-02-2024 Lymphocytes (Bld) [#/Vol] 2.43 10*3/uL 0.83-4.51 [facility] Lymphocytes/100 WBC Auto (Un sp spec)Ordered By: Earline Andrade on 04-02-2024 Lymphocytes/100 WBC (Bld) 24.8 % 19-41 [facility] MCV (mean corpuscular volume ) determinationOrdered By: Earline Andrade on 04-02-2024 MCV (RBC) [Entitic vol] 83.2 fL 81-99 [facility] Mean corpuscular hemoglobin (MCH) determinationOrdered By: Earline Andrade on 04-02-2024 MCH (RBC) [Entitic mass] 28.1 pg 27.0-32.0 [facility] Mean corpuscular hemoglobin concentration (MCHC) determinationOrdered By: Earline Andrade on 04-02-2024 MCHC (RBC) [Mass/Vol] 33.8 g/dL 32-36 [facility] Mean platelet volume determi nationOrdered By: Earline Andrade on 04-02-2024 Platelet mean volume (Bld) [Entitic vol] 11.4 fL 6.2-12.0 [facility] Miscellaneous procedureOrder ed By: Earline Andrade on 04-02-2024 Miscellaneous Test Comment SEE SCANNED REPORT [facility] Monocyte percentageOrdered B y: Earline Andrade on 04-02-2024 Monocytes/100 WBC (Bld) 5.2 % 0-10 [facility] NATERAon 04-02-2024 NATURA SEE SCANNED REPORT Normal [facility] Comment on above: Performed By: #### L 3890.6102, L100.0100, L501.9985, L3890.6301, L3890.6006, L509.4006, L509.8002, BTS, L900.0098 #### [facility] Laboratory [address] [place], [address] Neutrophil percentageOrdered By: Earline Andrade on 04-02-2024 Neutrophils/100 WBC (Bld) 68.1 % 47-70 [facility] No Panel InformationOrdered By: Earline Andrade on 04-02-2024 HIV (1&2) Antibody Non-Reactive Nonreactive [facility] Comment on above: Non-ReactiveReactive Repeatedly reactive samples must be confirmed according to CDC recommended confirmatory algorithms. The subresults for either HIVAG or AHIV can be used as an aid in the selection of the confirmation algorithm for reactive samples.Send out specimens with Reactive results to [facility] for confirmation.Order the HIV antibody detection and differentiation: #[id number] Rubella IgG Antibody REAC Nonreactive [facility] Comment on above: Antibody Result: Int erpretationNon-Reactive: Non-ImmuneReactive: ImmuneThe following results were obtained with the Elecsys Rubella IgG assay. Results from assays of other manufacturers cannot be used interchangeably. Syphilis Total Antibody Non-Reactive Nonreactiv e [facility] Nucleated red blood cell per centageOrdered By: Earline Andrade on 02-25-2025 Nucleated RBC/100 WBC (Bld) [Ratio] 0 % 0-5 [facility] Office Visit Reporton 04-02-2024 [place]na [place] Office Visit Report [facility] [address], [address] [place] [address] OFFICE VISIT Date of Service: 04/02/24 MR#: [id number] Acct: [id number] Name: SAMEER CABALLERO Rep #: [id number] : 1990 Provider: Dr. Maris yang MD Age/Sex: 33/F [place] [facility] Status: Signed Intake Vital Signs 12/25/23 07:48 03/01/24 14:33 04/02/24 09:19 Height 5 ft 5 in 5 ft 5 in 5 ft 5 in Weight: 265 lb 8 oz BMI 44.1 BP 133/86 H Intake Visit Reasons: 14wk OB Mechanical Assembly Required: No Is patient in pain?: No Feel stressed/tense/nervou s/anxious/difficulty sleeping: not at all Allergies No Known Allergies Allergy (Verified 04/02/24 09:20) Medications ???Medication ???Instructions ???Recorded ???Confirmed ???Type multivit-min no.71-iron fum 28 cap PO 02/23/24 04/02/24 History mg-folate no.1 1 mg-dha 300 mg capsule (PNV-Paloma) Last Menstrual Period: 12/21/23 Zika: Zika virus screening: Negative : No Have you fallen in the past year?: No PFSH PFSH Medical History Seasonal allergies History of frequent headaches Surgical History [place] teeth extracted Family History Grandmother CVA (cerebral vascular accident) Maternal Diabetes Maternal Grandfather Myocardial infarction, Onset Age: 54 Maternal Social History adopted: No household members: spouse housing: house number of children: 0 current occupational status: employed current occupation: [employer] current occupational exposures/hazards: No pets and animals: Yes pets and animals: dog(s) history of recent travel: [place] ([place]) out of state: Yes [...] physical activity do you participate in: none ganesh/church: [employer] seatbelt use: always do you feel safe [...] use, Childb (more content not included)... Normal [facility] Platelet countOrdered By: Ishan Andrade on 04-02-2024 Platelets (Bld) [#/Vol] 269 10*3/uL 150-450 [facility] RBC Auto (Bld) [#/Vol]Ordere d By: Earline Andrade on 04-02-2024 RBC (Bld) [#/Vol] 4.63 10*6/uL 4.2-5.4 [facility] Type AND Screenon 04-02-2024 Ab SCREEN GEL Negative Normal [facility] Comment on above: Order Comment: PN Performed By: #### L 3890.6102, L100.0100, L501.9985, L3890.6301, L3890.6006, L509.4006, L509.8002, BTS, L900.0098 #### [facility] Laboratory [address] [place], [address] White blood cell (WBC) count Ordered By: Earline Andrade on 04-02-2024 WBC (Bld) [#/Vol] 9.8 10*3/uL 4.4-11.0 [facility] Chlamydia/GC MICAH aptimaon CHLAMY,NUC ACID Negative Normal Negative [facility] Comment on above: Performed By: #### M 100.2200, L7000.1800 ####[facility] [address] [place], [address] GC BY NUC ACID Negative Normal Negative [facility] Comment on above: Result Comment: Perf ormed at: =G - [facility] [address] [id number] Channeler Insole: Lori Coppola MD, Phone: [phone] Performed By: #### M 100.2200, L7000.1800 ####[facility] [address] [place], [address] Urine Cultureon 03-02-2024 URC Culture exhibits no growth. Normal [facility] Comment on above: Performed By: #### M 100.2200, L7000.1800 ####[facility] [address] [place], [address] C. trachomatis rRNA MICAH+prob e Ql (Unsp spec)Ordered By: Earline Andrade on 03-01-2024 Chlamydia DNA (MICAH) Negative Negative [facility] Chlamydia trachomatis rRNA d etection by probe and target amplification methodOrdered By: Earline Andrade on 03-01-2024 C. trachomatis rRNA MICAH+probe Ql (Unsp spec) Negative Negative [facility] Neisseria gonorrhoeae nuclei c acid detection by amplified probe techniqueOrdered By: Earline Andrade on 03-01-2024 N. gonorrhoeae DNA MICAH+probe Ql (Unsp spec) Negative Negative [facility] Comment on above: Performed at: =[address] [id number] Director: Lori Coppola MD, Phone: [phone] [facility] Office Visit Reporton 03-01-2024 [facility] Office Visit Report [facility] [address], [address] [place] [address] OFFICE VISIT Date of Service: 03/01/24 MR#: [id number] Acct: [id number] Name: SAMEER CABALLERO Rep #: [id number] : 1990 Provider: MARIO Fournier ams Age/Sex: 33/F [place] [facility] [place]: Signed Intake Vital Signs 12/25/23 07:48 03/01/24 14:33 Height 5 ft 5 in 5 ft 5 in Weight: 268 lb 267 lb 2 oz BMI 44.6 44.4 BP 132/85 H 137/83 H 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, LMP 12/20, LORY 09/26/24 Mechanical Assembly Required: No Is patient in pain?: No Allergies No Known Allergies Allergy (Verified 03/01/24 14:31) Medications ???Medication ???Instructions ???Recorded ???Confirmed ???Type multivit-min no.71-iron fum 28 cap PO 02/23/24 02/23/24 History mg-folate no.1 1 mg-dha 300 mg capsule (PNV-Paloma) Last Menstrual Period: 12/21/23 Zika: Zika virus screening: Negative : Yes Have you fallen in the past year?: No PFSH PFSH Medical History Seasonal allergies History of frequent headaches Surgical History [place] teeth extracted Family History Grandmother CVA (cerebral vascular accident) Maternal Diabetes Maternal Grandfather Myocardial infarction, Onset Age: 54 Maternal Social History adopted: No household members: spouse housing: house number of children: 0 service: No current occupational status: employed current occupation: [employer] current occupational exposures/hazards: No pets and animals: Yes pets and animals: dog(s) history of recent travel: Yes ([facility] in January) out of state: Yes [...] physical activity do you participate in: none ganesh/church: [employer] seatbelt use: always do you feel safe [...] Genetic Disease: (more content not included)... Normal [facility] Urine cultureOrdered By: Riccardo Andrade on 03-01-2024 Bacteria identified Cx Nom (U) Culture exhibits no growth. [facility] PAP IG HPV APTIMA 16/18,45on 01-01-2024 ADEQ Comment Normal . [facility] Comment on above: Order Comment: Speci men Comment: [id number] Comment: Source.............CervixSpecimen Comment: No. of containers..01 ThinPrep Vial Result Comment: Sati sfactory for evaluation. Endocervical and/or squamous metaplastic cells (endocervical component) are present. Performed By: #### L 7400.0280 ####[facility] [address] [place], [place], [id number] COMM . Normal . [facility] Comment on above: Order Comment: Speci men Comment: [id number] Comment: Source.............CervixSpecimen Comment: No. of containers..01 ThinPrep Vial Performed By: #### L 7400.0280 ####[facility] [address] [place], [place], [address] COMMENT Comment Normal . [facility] Comment on above: Order Comment: Speci men Comment: [id number] Comment: Source.............CervixSpecimen Comment: No. of containers..01 ThinPrep Vial Result Comment: This liquid based ThinPrep(R) pap test was screened with the use of an image guided system. Performed By: #### L 7400.0280 ####[facility] [address] [place], [address] DIAG Comment Normal . [facility] Comment on above: Order Comment: Speci men Comment: [id number] Comment: Source.............CervixSpecimen Comment: No. of containers..01 ThinPrep Vial Result Comment: NEGA TIVE FOR INTRAEPITHELIAL LESION OR MALIGNANCY. Performed By: #### L 7400.0280 ####[facility] [address] [place], [place], [address] HPV APTIMA, HR Positive Abnormal Negative [facility] Comment on above: Order Comment: Speci men Comment: [id number] Comment: Source.............CervixSpecimen Comment: No. of containers..01 ThinPrep Vial Result Comment: This nucleic acid amplification test detects fourteen high- risk HPV types (16,18,31,33,35,39,45,51,52,56,58,59,66,68) without differentiation. Performed By: #### L 7400.0280 ####[facility] [address] [place], [place], [address] HPV Lizette 18,45 Positive Abnormal Negative [facility] Comment on above: Order Comment: Speci men Comment: [id number] Comment: Source.............CervixSpecimen Comment: No. of containers..01 ThinPrep Vial Result Comment: Perf ormed at: [address] [id number] Channeler Insole: Alexandro Burrell PhD, Phone: [phone] Performed at: [address] [id number] Channeler Insole: Lori Coppola MD, Phone: [phone] Performed at: =[address] [id number] Channeler Insole: Lori Coppola MD, Phone: [phone] Performed By: #### L 7400.0280 ####[facility] [address] [place], [place], [address] HPV Lizette Rfx Comment Normal . [facility] Comment on above: Order Comment: Speci men Comment: [id number] Comment: Source.............CervixSpecimen Comment: No. of containers..01 ThinPrep Vial Result Comment: Yecenia chávez, see HPV Genotype results. Performed By: #### L 7400.0280 ####[facility] [address] [place], [address] HPV Genotype 16 Negative Normal Negative [facility] Comment on above: Order Comment: Speci men Comment: [id number] Comment: Source.............CervixSpecimen Comment: No. of containers..01 ThinPrep Vial Performed By: #### L 7400.0280 ####[facility] [address] [place], [address] PAPSMR Comment Normal . [facility] Comment on above: Order Comment: Speci men Comment: [id number] Comment: Source.............CervixSpecimen Comment: No. of containers..01 ThinPrep Vial Result Comment: The Pap smear is a screening test designed to aid in the detection of premalignant and malignant conditions of the uterine cervix. It is not a diagnostic procedure and should not be used as the sole means of detecting cervical cancer. Both false-positive and false-negative reports do occur. Performed By: #### L 7400.0280 ####[facility] [address] [place], [place], [id number] PERFORM Comment Normal . [facility] Comment on above: Order Comment: Speci men Comment: [id number] Comment: Source.............CervixSpecimen Comment: No. of containers..01 ThinPrep Vial Result Comment: Maritza Silva, Shot Bagger (ASCP) Performed By: #### L 7400.0280 ####[facility] [address] [place], [address] Gravel Inspector Cyto stain Nom (C vx/Vag) [ID]Ordered By: Laura Lechuga on 12-25-2023 Pap Smear Performed By Comment . [facility] Comment on above: Cata Silva, Cyto technologist (ASCP) Cytology report Cyto stain D oc (Cvx/Vag)Ordered By: Laura Lechuga on 12-25-2023 Thin Prep Pap Smear Comment . [facility] Comment on above: The Pap smear is [...] 12-25-2023 HPV Genotype Special Info Comment . [facility] Comment on above: Criteria met, see HP V Genotype results. HPV 16 DNA Probe+sig amp Ql (Cvx)Ordered By: Laura Lechuga on 12-25-2023 HPV Type 16 Comment Negative Negative [facility] HPV 16+18+31+33+35+39+45+51+ 52+56+58+59+66+68 DNA Probe+sig amp Ql (Cvx)Ordered By: Laura Lechuga on 12-25-2023 Human Papillomavirus High Risk Positive High Negative [facility] Comment on above: This nucleic acid am plification test detects fourteen high-risk HPV types (16,18,31,33,35,39,45,51,52,56,58,59,66,68)without differentiation. HPV E6+E7 mRNA MICAH+probe Ql (Cvx)Ordered By: Laura Lechuga on 12-25-2023 HPV Type 18 Comment Positive High Negative [facility] Comment on above: Performed at: [address] [place] [id number] Director: Alexandro Burrell PhD, Phone: [phone] at: - [facility] [id number] Director: Lori Coppola MD, Phone: [phone] at: =G - [facility] [address] [id number] Director: Lori Coppola MD, Phone: [phone] Image-guided ThinPrep PapOrd ered By: Laura Lechuga on 12-25-2023 Pap Smear Note Comment . [facility] Comment on above: This liquid based Th inPrep(R) pap test was screened withthe use of an image guided system. Image-guided liquid-based Pa pOrdered By: Laura Lechuga on 12-25-2023 Pap Smear Diagnosis Comment . [facility] Comment on above: NEGATIVE FOR INTRAEP ITHELIAL LESION OR MALIGNANCY. [facility] Office Visit Reporton 12-25-2023 [facility] Office Visit Report [facility] [address], [address] [place] [address] OFFICE VISIT Date of Service: 12/25/23 MR#: [id number] Acct: [id number] Name: SAMEER CABALLERO Rep #: [id number] : 1990 Provider: NERY De La Cruz Age/Sex: 33/F Location: [facility] Status: Signed Intake Vital Signs 12/25/23 07:48 Height 5 ft 5 in Weight: 268 lb BMI 44.6 BP 132/85 H Intake Visit Reasons: Annual ([employer]) Mechanical Assembly Required: No Is patient in pain?: No Allergies No Known Allergies Allergy (Unverified 12/25/23 07:49) Medications ???Medication ???Instructions ???Recorded ???Confirmed ???Type NK 12/25/23 12/25/23 History Is last menstrual period known: Yes Last Menstrual Period: 12/21/23 Post menopausal: No Patient : No : No Do you think of yourself as: straight/heterosexual Current gender identity: female Control Method: none [facility] Medical History (Updated 12/25/23 @ 07:55 by Tiffanie Mckeon) Seasonal allergies History of frequent headaches Family History (Updated 12/25/23 @ 07:56 by Tiffanie Mckeon) Other CVA (cerebral vascular accident) Diabetes Heart disease Social History adopted: No household members: spouse housing: house number of children: 0 current occupational status: employed current occupation: [employer] current occupational exposures/hazards: No pets and animals: [...] physical activity do you participate in: none ganesh/church: [employer] seatbelt use: always do you feel safe at home: Yes additional social history: - Mc - hankins HPI Encounter for routine gynecological examination Details: SAMEER CABALLERO is a 33 year old who presents for annual exam. Has not been to a retirement plan specialist since 2018ish. She is unsure where this [...] size normal (more content not included)... Normal [facility] Service comment (Unsp spec) [Interp]Ordered By: Laura Lechuga on 12-25-2023 Pap Smear Comment (3) . . [facility] Vital Signs Date Time Vital Sign Value Performing Clinician Alber olvera 10-15-2024 14:52-0400 Body height 165.1 cm No Primary Care Physician [facility] 10-15-2024 14:52-0400 Body mass index (BMI) [Ratio] 45.3 kg/m2 No Primary Care Physician [facility] 10-15-2024 14:52-0400 Body weight 123.46 kg No Primary Care Physician [facility] 10-15-2024 14:52-0400 Diastolic blood pressure 69 mm[Hg] No Primary Care Physician [facility] 10-15-2024 14:52-0400 Systolic blood pressure 105 mm[Hg] No Primary Care Physician [facility] 10-01-2024 09:53-0400 Body height 165.1 cm No Primary Care Physician [facility] 10-01-2024 09:48-0400 Body mass index (BMI) [Ratio] 45.8 kg/m2 No Primary Care Physician [facility] 10-01-2024 09:48-0400 Body weight 124.76 kg No Primary Care Physician [facility] 10-01-2024 09:48-0400 Diastolic blood pressure 84 mm[Hg] No Primary Care Physician [facility] 10-01-2024 09:48-0400 Systolic blood pressure 126 mm[Hg] No Primary Care Physician [facility] 09-24-2024 10:06-0400 Body temperature 98 [degF] No Primary Care Physician [facility] 09-24-2024 10:06-0400 Diastolic blood pressure 88 mm[Hg] No Primary Care Physician [facility] 09-24-2024 10:06-0400 Heart rate 93 /min No Primary Care Physician [facility] 09-24-2024 10:06-0400 Respiratory rate 18 /min No Primary Care Physician [facility] 09-24-2024 10:06-0400 Systolic blood pressure 146 mm[Hg] No Primary Care Physician [facility] 09-24-2024 02:43-0400 SaO2% (BldA) [Mass fraction] 97 % No Primary Care Physician [facility] 09-20-2024 05:07-0400 Body height 165.1 cm No Primary Care Physician [facility] 09-20-2024 05:07-0400 Body mass index (BMI) [Ratio] 52.4 kg/m2 No Primary Care Physician [facility] 09-20-2024 05:07-0400 Body weight 142.88 kg No Primary Care Physician [facility] 09-17-2024 13:22-0400 Body height 165.1 cm No Primary Care Physician [facility] 09-17-2024 13:22-0400 Body mass index (BMI) [Ratio] 52.3 kg/m2 No Primary Care Physician [facility] 09-17-2024 13:22-0400 Body weight 142.59 kg No Primary Care Physician [facility] 09-17-2024 13:22-0400 Diastolic blood pressure 98 mm[Hg] No Primary Care Physician [facility] 09-17-2024 13:22-0400 Systolic blood pressure 138 mm[Hg] No Primary Care Physician [facility] 09-13-2024 16:17-0400 Body height 165.1 cm No Primary Care Physician [facility] 09-13-2024 16:17-0400 Body mass index (BMI) [Ratio] 52.2 kg/m2 No Primary Care Physician [facility] 09-13-2024 16:17-0400 Body weight 142.42 kg No Primary Care Physician [facility] 09-13-2024 16:11-0400 Diastolic blood pressure 82 mm[Hg] No Primary Care Physician [facility] 09-13-2024 16:11-0400 Heart rate 96 /min No Primary Care Physician [facility] 09-13-2024 16:11-0400 Systolic blood pressure 136 mm[Hg] No Primary Care Physician [facility] 09-13-2024 14:10-0400 Body temperature 97.9 [degF] No Primary Care Physician [facility] 09-13-2024 14:10-0400 Respiratory rate 16 /min No Primary Care Physician [facility] 09-13-2024 14:09-0400 SaO2% (BldA) [Mass fraction] 99 % No Primary Care Physician [facility] 09-10-2024 08:26-0400 Body height 165.1 cm No Primary Care Physician [facility] 09-10-2024 08:25-0400 Body mass index (BMI) [Ratio] 51.8 kg/m2 No Primary Care Physician [facility] 09-10-2024 08:25-0400 Body weight 141.26 kg No Primary Care Physician [facility] 09-10-2024 08:25-0400 Diastolic blood pressure 88 mm[Hg] No Primary Care Physician [facility] 09-10-2024 08:25-0400 Systolic blood pressure 139 mm[Hg] No Primary Care Physician [facility] 09-02-2024 08:49-0400 Body height 165.1 cm No Primary Care Physician [facility] 09-02-2024 08:49-0400 Body mass index (BMI) [Ratio] 50 kg/m2 No Primary Care Physician [facility] 09-02-2024 08:49-0400 Body weight 136.3 kg No Primary Care Physician [facility] 09-02-2024 08:49-0400 Diastolic blood pressure 87 mm[Hg] No Primary Care Physician [facility] 09-02-2024 08:49-0400 Systolic blood pressure 132 mm[Hg] No Primary Care Physician [facility] 08-26-2024 10:22-0400 Diastolic blood pressure 62 mm[Hg] No Primary Care Physician [facility] 08-26-2024 10:22-0400 Heart rate 87 /min No Primary Care Physician [facility] 08-26-2024 10:22-0400 Systolic blood pressure 136 mm[Hg] No Primary Care Physician [facility] 08-26-2024 09:49-0400 Body height 165.1 cm No Primary Care Physician [facility] 08-26-2024 09:49-0400 Body mass index (BMI) [Ratio] 50.6 kg/m2 No Primary Care Physician [facility] 08-26-2024 09:49-0400 Body weight 138.1 kg No Primary Care Physician [facility] 08-26-2024 09:46-0400 Respiratory rate 16 /min No Primary Care Physician [facility] 08-26-2024 08:40-0400 Body height 165.1 cm No Primary Care Physician [facility] 08-26-2024 08:40-0400 Body mass index (BMI) [Ratio] 50.4 kg/m2 No Primary Care Physician [facility] 08-26-2024 08:40-0400 Body weight 137.55 kg No Primary Care Physician [facility] 08-26-2024 08:40-0400 Diastolic blood pressure 84 mm[Hg] No Primary Care Physician [facility] 08-26-2024 08:40-0400 Systolic blood pressure 127 mm[Hg] No Primary Care Physician [facility] 08-19-2024 08:37-0400 Body height 165.1 cm No Primary Care Physician [facility] 08-19-2024 08:37-0400 Body mass index (BMI) [Ratio] 49.6 kg/m2 No Primary Care Physician [facility] 08-19-2024 08:37-0400 Body weight 135.34 kg No Primary Care Physician [facility] 08-19-2024 08:37-0400 Diastolic blood pressure 77 mm[Hg] No Primary Care Physician [facility] 08-19-2024 08:37-0400 Systolic blood pressure 126 mm[Hg] No Primary Care Physician [facility] 08-12-2024 08:11-0400 Body mass index (BMI) [Ratio] 49.4 kg/m2 No Primary Care Physician [facility] 08-12-2024 08:11-0400 Body weight 134.88 kg No Primary Care Physician [facility] 08-12-2024 08:11-0400 Diastolic blood pressure 84 mm[Hg] No Primary Care Physician [facility] 08-12-2024 08:11-0400 Systolic blood pressure 130 mm[Hg] No Primary Care Physician [facility] 07-30-2024 08:28-0400 Body height 165.1 cm No Primary Care Physician [facility] 07-30-2024 08:22-0400 Body mass index (BMI) [Ratio] 48.6 kg/m2 No Primary Care Physician [facility] 07-30-2024 08:22-0400 Body weight 132.44 kg No Primary Care Physician [facility] 07-30-2024 08:22-0400 Diastolic blood pressure 78 mm[Hg] No Primary Care Physician [facility] 07-30-2024 08:22-0400 Systolic blood pressure 118 mm[Hg] No Primary Care Physician [facility] 07-16-2024 15:29-0400 Body height 165.1 cm No Primary Care Physician [facility] 07-16-2024 15:29-0400 Body mass index (BMI) [Ratio] 49.1 kg/m2 No Primary Care Physician [facility] 07-16-2024 15:29-0400 Body weight 133.92 kg No Primary Care Physician [facility] 07-16-2024 15:29-0400 Diastolic blood pressure 74 mm[Hg] No Primary Care Physician [facility] 07-16-2024 15:29-0400 Systolic blood pressure 120 mm[Hg] No Primary Care Physician [facility] 06-24-2024 15:33-0400 Body height 165.1 cm No Primary Care Physician [facility] 06-24-2024 15:31-0400 Body mass index (BMI) [Ratio] 48.4 kg/m2 No Primary Care Physician [facility] 06-24-2024 15:31-0400 Body weight 132.1 kg No Primary Care Physician [facility] 06-24-2024 15:31-0400 Diastolic blood pressure 83 mm[Hg] No Primary Care Physician [facility] 06-24-2024 15:31-0400 Systolic blood pressure 127 mm[Hg] No Primary Care Physician [facility] 05-29-2024 07:25-0400 Body mass index (BMI) [Ratio] 47.5 kg/m2 No Primary Care Physician [facility] 05-29-2024 07:25-0400 Body weight 129.44 kg No Primary Care Physician [facility] 05-29-2024 07:25-0400 Diastolic blood pressure 80 mm[Hg] No Primary Care Physician [facility] 05-29-2024 07:25-0400 Systolic blood pressure 120 mm[Hg] No Primary Care Physician [facility] 05-02-2024 08:23-0400 Body mass index (BMI) [Ratio] 46.3 kg/m2 No Primary Care Physician [facility] 05-02-2024 08:23-0400 Body weight 126.15 kg No Primary Care Physician [facility] 05-02-2024 08:23-0400 Diastolic blood pressure 84 mm[Hg] No Primary Care Physician [facility] 05-02-2024 08:23-0400 Systolic blood pressure 126 mm[Hg] No Primary Care Physician [facility] 04-02-2024 09:19-0500 Body height 165.1 cm Laura Lechuga LIVER TRIMMER-C Work Phone: [facility] 04-02-2024 09:19-0500 Body mass index (BMI) [Ratio] 44.1 kg/m2 Laura Lechuga LIVER TRIMMER-C Work Phone: [facility] 04-02-2024 09:19-0500 Body weight 120.42 kg Laura Lechuga LIVER TRIMMER-C Work Phone: [facility] 04-02-2024 09:19-0500 Diastolic blood pressure 86 mm[Hg] Laura Lechuga LIVER TRIMMER-C Work Phone: [facility] 04-02-2024 09:19-0500 Systolic blood pressure 133 mm[Hg] Laura Lechuga LIVER TRIMMER-C Work Phone: [facility] 03-01-2024 14:33-0500 Body mass index (BMI) [Ratio] 44.4 kg/m2 Laura Ramirezman LIVER TRIMMER-C Work Phone: [facility] 03-01-2024 14:33-0500 Body weight 121.16 kg Laura Lechuga LIVER TRIMMER-C Work Phone: [facility] 03-01-2024 14:33-0500 Diastolic blood pressure 83 mm[Hg] Laura Ramirezman LIVER TRIMMER-C Work Phone: [facility] 03-01-2024 14:33-0500 Systolic blood pressure 137 mm[Hg] Laura Lechuga LIVER TRIMMER-C Work Phone: [facility] 12-25-2023 07:48-0500 Body mass index (BMI) [Ratio] 44.6 kg/m2 Laura Lechuga LIVER TRIMMER-C Work Phone: [facility] 12-25-2023 07:48-0500 Body weight 121.56 kg Laura Lechuga LIVER TRIMMER-C Work Phone: [facility] 12-25-2023 07:48-0500 Diastolic blood pressure 85 mm[Hg] Laura Lechuga LIVER TRIMMER-C Work Phone: [facility] 12-25-2023 07:48-0500 Systolic blood pressure 132 mm[Hg] Laura Lechuga LIVER TRIMMER-C Work Phone: [facility] Encounters Encounter Date Encounter Type Care Provider Facility Start: 10-30-2024 ambulatory Rhina Knott cility:[facility] Start: 10-15-2024 End: 10-15-2024 Patient encounter procedure Shea Rodriguez NP-C -[facility] Work Phone: Start: 10-15-2024 End: 10-15-2024 ambulatory No Primary Care Physician -[facility] Start: 10-01-2024 End: 10-01-2024 Patient encounter procedure Shea GABRIEL -[facility] Work Phone: Start: 10-01-2024 End: 10-01-2024 ambulatory No Primary Care Physician -[facility] Start: 10-01-2024 End: 10-01-2024 ambulatory Shea Rodriguez NP Facility:[facility] Start: 09-25-2024 ambulatory Rhina Knott cility:[facility] Start: 09-24-2024 Non-patient / Non-visit Dr. Rhina Sweeney DO [facility] Start: 09-23-2024 ambulatory Rhina Knott cility:[facility] Start: 09-23-2024 Non-patient / Non-visit Earline [facility] Start: 09-22-2024 Non-patient / Non-visit Dr. Maris Aragon MD [facility] Start: 09-21-2024 Non-patient / Non-visit Milady [facility] Start: 09-20-2024 Non-patient / Non-visit Dr. Rhina Sweeney DO [facility] Start: 09-20-2024 ambulatory Rhina Knott cility:[facility] Start: 09-20-2024 End: 09-24-2024 Evaluation and management of inpatient Dr. Rhina Sweeney DO [facility] Work Phone: Start: 09-17-2024 End: 09-17-2024 Patient encounter procedure Earline UP -[facility] Work Phone: Start: 09-17-2024 End: 09-17-2024 ambulatory No Primary Care Physician -[facility] Start: 09-13-2024 Non-patient / Non-visit Earline [facility] Start: 09-13-2024 End: 09-13-2024 ambulatory No Primary Care Physician [facility] Start: 09-13-2024 End: 09-13-2024 Patient encounter procedure Earline UP -[facility] Work Phone: Start: 09-10-2024 End: 09-10-[address] Rhina Sweeney DO -[facility] Work Phone: Start: 09-10-2024 End: 09-10-2024 ambulatory No Primary Care Physician [facility] Start: 09-02-2024 End: 09-02-[address] Rhina Sweeney DO -[facility] Work Phone: Start: 09-02-2024 End: 09-02-2024 ambulatory No Primary Care Physician [facility] Start: 08-26-2024 ambulatory Earilne Andrade Facility :[facility] Start: 08-26-2024 Non-patient / Non-visit Earline UP -[facility] Start: 08-26-2024 End: 08-26-[address] Maris Aragon MD -[facility] Work Phone: Start: 08-26-2024 End: 08-26-2024 ambulatory No Primary Care Physician [facility] Start: 08-21-2024 End: 08-21-2024 ambulatory No Primary Care Physician -Ultras[facility] Start: 08-21-2024 End: 08-21-2024 Patient encounter procedure Shea Rodriguez LIVER TRIMMER-C -[facility]tras[facility] Work Phone: Start: 08-21-2024 End: 08-21-2024 ambulatory Shea Rodriguez LIVER TRIMMER Facility:[facility] Start: 08-19-2024 End: 08-19-[address] Rhina Sweeney DO -[facility] Work Phone: Start: 08-19-2024 End: 08-19-2024 ambulatory No Primary Care Physician [facility] Start: 08-12-2024 End: 08-12-[address] Rhina Sweeney DO -[facility] Work Phone: Start: 08-12-2024 End: 08-12-2024 ambulatory Rhina Sweeney Facility:[facility] Start: 07-30-2024 End: 07-30-2024 Patient encounter procedure Shea [place] Vista LIVER TRIMMER-C -[facility] Work Phone: Start: 07-30-2024 End: 07-30-2024 ambulatory No Primary Care Physician [facility] Work Phone: Start: 07-22-2024 End: 07-22-2024 ambulatory No Primary Care Physician [facility] Work Phone: Start: 07-22-2024 End: 07-22-2024 Patient encounter procedure Shea Verass LIVER TRIMMER-C -Ultrasound [facility] Work Phone: Start: 07-22-2024 End: 07-22-2024 ambulatory Shea [place] LIVER TRIMMER Facility:[facility] Start: 07-16-2024 End: 07-16-2024 Patient encounter procedure Shea [place] LIVER TRIMMER-C -[facility] Work Phone: Start: 07-16-2024 End: 07-16-2024 ambulatory No Primary Care Physician [facility] Work Phone: Start: 07-03-2024 End: 07-03-2024 ambulatory No Primary Care Physician [facility] Work Phone: Start: 07-03-2024 End: 07-03-[address] Rhina Sweeney DO -Laboratory Work Phone: Start: 07-03-2024 End: 07-03-2024 ambulatory Rhina Sweeney Facility:[facility] Start: 06-24-2024 End: 06-24-[address] Rhina Sweeney DO -[facility] Work Phone: Start: 06-24-2024 End: 06-24-2024 ambulatory No Primary Care Physician [facility] Work Phone: Start: 06-24-2024 End: 06-24-2024 ambulatory Earline Andrade Facility:[facility] Start: 05-29-2024 End: 05-29-2024 Patient encounter procedure Earline Andrade CNM -[facility] Start: 05-29-2024 End: 05-29-2024 ambulatory No Primary Care Physician Facility:[facility] Start: 05-23-2024 End: 05-23-2024 ambulatory TIMOTEO GURERERO [facility] Start: 05-07-2024 End: 05-07-2024 ambulatory MARIS ARAGON [facility] Start: 05-02-2024 End: 05-02-2024 Patient encounter procedure Shea AVENDANOC -[facility] Work Phone: Start: 05-02-2024 End: 05-02-2024 ambulatory Shea Rodriguez NP Facility:[facility] Start: 04-02-2024 End: 04-02-[address] Maris Aragon MD -[facility] Work Phone: Start: 04-02-2024 End: 04-02-2024 ambulatory Laura GABRIEL Work Phone: [facility] Work Phone: Start: 04-02-2024 End: 04-02-2024 ambulatory Earline Andrade Facility:[facility] Start: 03-01-2024 End: 03-01-2024 Patient encounter procedure Earline Andrade CNM -Laboratory, Specimen Work Phone: Start: 03-01-2024 End: 03-01-2024 Patient encounter procedure Earline Andrade CNM -[facility] Work Phone: Start: 03-01-2024 End: 03-01-2024 ambulatory No Primary Care Physician Facility:[facility] Start: 03-01-2024 End: 03-01-2024 ambulatory Earline Andrade Facility:[facility] Start: 12-25-2023 End: 12-25-2023 Patient encounter procedure Laura GABRIEL -Laboratory, Spec[facility] Work Phone: Start: 12-25-2023 End: 12-25-2023 Patient encounter procedure Laura GABRIEL -[facility] @ Start: 12-25-2023 End: 12-25-2023 Patient encounter status Laura Ankush LIVER TRIMMER-C [facility] Start: 12-25-2023 End: 12-25-2023 ambulatory Laura Lechuga Facility:[facility] Start: 12-25-2023 End: 12-25-2023 ambulatory Laura Lechuga Facility:[facility] Procedures Date Procedure Procedure Detail Performing Clinician Start: 09-20-2024 Estimated creatinine clearance No Primary Care Physician Start: 09-20-2024 Serologic test for syphilis No Primary Care Physician Start: 09-13-2024 Ultrasonography for biophysical profile without non-stress testing No Primary Care Physician Start: 08-26-2024 End: 08-26-2024 Bacterial nucleic acid assay No Primary Care Physician Start: 08-26-2024 Beta-hemolytic Streptococcus culture No Primary Care Physician Start: 08-26-2024 [...] HCV Quant by PCR testing - HCVPCR #[id number] Non Reactive: < 0.8 Equivocal: >/= 0.8 to < 1.0 Reactive: >/= 1.0The CDC requires that a reactive/equivocal HCV antibody result be sent out for confirmation. HCV Quant by PCR testing. Start: 04-02-2024 Procedure No Primary Care Physician Start: 03-01-2024 Urine culture Laura chavarria LIVER TRIMMER-C Work Phone: H/O: section Status pos t section No Primary Care Physician Comment on above: primary c/s H/O: section Status pos t section Dr. Rhina Sweeney DO H/O: section Status pos t section Shea Rodriguez LIVER TRIMMER-C Plan of Treatment Date Care Activity Detail Author Start: 10-01-2024 CBC W Auto Differential panel - Blood [facility] Start: 09-24-2024 Patient discharge [facility] Start: 09-21-2024 Application of abdominal corset [facility] Start: 09-20-2024 Administration of medication [facility] Start: 09-20-2024 Ambulation therapy management [facility] Start: 09-20-2024 Application of device [facility] Start: 09-20-2024 End: 09-20-2024 Application of intermittent pneumatic compression device [facility] Start: 09-20-2024 Assessment of risk of venous thromboembolism [facility] Start: 09-20-2024 Catheterization of vein [facility] Start: 09-20-2024 Deep breathing and coughing exercises [facility] Start: 09-20-2024 Exercises [facility] Start: 09-20-2024 Measuring intake and output [facility] Start: 09-20-2024 Notification of physician [facility] Start: 09-20-2024 Procedure discontinued [facility] Start: 09-20-2024 Provision of activity privileges [facility] Start: 09-20-2024 Skin care [facility] Start: 09-20-2024 Vital signs measurements [facility] Start: 09-20-2024 Wound care [facility] Start: 09-20-2024 [facility] Start: 09-20-2024 Application of abdominal corset [facility] Start: 09-20-2024 section Primary C Section (Not Applicable) [facility] Start: 09-20-2024 Admission procedure [facility] Start: 09-20-2024 Consultation [facility] Start: 09-13-2024 Biophysical profile panel US [facility] Start: 09-13-2024 Ultrasonography for biophysical profile without non-stress testing OB Biophysical Prof W/O NST [facility] Start: 09-13-2024 Nonstress test [facility] Start: 09-13-2024 Obstetric monitoring [facility] Start: 09-13-2024 [facility] Start: 09-13-2024 Vital signs measurements [facility] Start: 09-13-2024 Patient discharge [facility] Start: 08-26-2024 Bacteria identified in Urine by Culture Urine Culture [facility] Start: 08-26-2024 Group B Streptococcus Culture Group B Streptococcus Culture [facility] Start: 08-26-2024 [facility] Start: 08-26-2024 Nonstress test [facility] Start: 08-26-2024 Biophysical profile panel US [facility] Start: 08-26-2024 Obstetric monitoring [facility] Start: 08-26-2024 Ultrasonography for biophysical profile without non-stress testing OB Biophysical Prof W/O NST [facility] Start: 08-26-2024 Vital signs measurements [facility] Start: 08-26-2024 End: 08-26-2024 [facility] Start: 08-26-2024 Patient discharge [facility] Start: 06-24-2024 CBC W Auto Differential panel - Blood [facility] Start: 06-24-2024 Measurement of glucose 2 hours after glucose challenge for glucose tolerance test [facility] Start: 06-24-2024 Serologic test for syphilis [facility] Start: 06-24-2024 [facility] Beta-hemolytic Streptococcus culture [facility] Erythrocyte mean corpuscular volume determination [facility] Erythrocyte mean corpuscular volume determination [facility] Biophysical pr ofile panel US [facility] Hematocrit [Volume Fraction] of Blood [facility] Hematocrit [Volume Fraction] of Blood [facility] Hemoglobin [Mass/vol ume] in Blood [facility] Hemoglobin [Mass/vol ume] in Blood [facility] Leukocytes [#/volume ] in Blood [facility] Leukocytes [#/volume ] in Blood [facility] Mean corpuscular hemoglobin concentration determination [facility] Mean corpuscular hemoglobin concentration determination [facility] Mean corpuscular hemoglobin determination [facility] Mean corpuscular hemoglobin determination [facility] Neutrophil count [facility] Neutrophil count [facility] Neutrophil percent differential count [facility] Neutrophil percent differential count [facility] Patient Education Kick Counts ED False Labor OB Triage: Return to Hospital or Notify Physician if you Experience: [facility] Work Phone: Platelets [#/volume] in Blood [facility] Platelets [#/volume] in Blood [facility] Red blood cell count [facility] Red blood cell count [facility] Red cell distributio n width determination [facility] Red cell distributio n width determination [facility] Ultrasound scan for growth [facility] Ultrasound scan for growth [facility] Urine culture [facility] Immunizations Immunization Date Immunization Notes Care Provider Fa cility 07-16-2024 tetanus toxoid, redu geneva diphtheria toxoid, and acellular pertussis vaccine, adsorbed No Primary Care Physician [facility] Payers Date Payer Category Payer Self-pay 2023 Unknown [id number] 1990 Unknown [id number] 2.16. [id number] 1990 Unknown [id number] 2.16. 840.1.433204.3.579.2.479 1990 Unknown [id number] 2.16. 840.1.234712.3.579.2.479 Unknown [id number] 2.16.8 40.1.115652.3.579.2.462 Unknown [id number] 2.16.8 40.1.687413.3.579.2.462 Unknown [id number] 2.16.8 40.1.129499.3.579.2.462 Unknown [id number] 2.16.8 40.1.311209.3.579.2.462 Unknown [id number] 2.16.8 40.1.116213.3.579.2.462 Unknown [id number] 2.16.8 40.1.666485.3.579.2.462 Unknown [id number] 2.16.8 40.1.867251.3.579.2.462 Unknown [id number] 2.16.8 40.1.189299.3.579.2.462 Unknown [id number] 2.16.8 40.1.432771.3.579.2.462 Unknown [id number] 2.16.8 40.1.396090.3.579.2.462 Unknown [id number] 2.16.8 40.1.414142.3.579.2.462 Unknown [id number] 2.16.8 40.1.360361.3.579.2.462 Unknown [id number] 2.16.8 40.1.234371.3.579.2.462 Unknown [id number] 2.16.8 40.1.409925.3.579.2.462 Unknown [id number] 2.16.8 40.1.889478.3.579.2.462 Unknown [id number] 2.16.8 40.1.339429.3.579.2.462 Unknown [id number] 2.16.8 40.1.768075.3.579.2.462 Unknown [id number] 2.16.8 40.1.178850.3.579.2.462 Unknown [id number] 2.16.8 40.1.909824.3.579.2.462 Unknown [id number] 2.16.8 40.1.875009.3.579.2.462 Unknown [id number] 2.16.8 40.1.762750.3.579.2.462 Unknown [id number] 2.16.8 40.1.763234.3.579.2.462 Unknown [id number] 2.16.8 40.1.800342.3.579.2.462 Unknown [id number] 2.16.8 40.1.718799.3.579.2.462 Unknown [id number] 2.16.8 40.1.713862.3.579.2.462 Unknown [id number] 2.16.8 40.1.138154.3.579.2.462 Unknown [id number] 2.16.8 40.1.659409.3.579.2.462 Unknown [id number] 2.16.8 40.1.599794.3.579.2.462 Unknown [id number] 2.16.8 40.1.852713.3.579.2.462 Unknown [id number] 2.16.8 40.1.826450.3.579.2.462 Unknown [id number] 2.16.8 40.1.552314.3.579.2.462 Unknown [id number] 2.16.8 40.1.306518.3.579.2.462 Unknown [id number] 2.16.8 40.1.404028.3.579.2.462 Unknown [id number] 2.16.8 40.1.299510.3.579.2.462 Unknown [id number] 2.16.8 40.1.391163.3.579.2.462 Unknown [id number] 2.16.8 40.1.187211.3.579.2.462 Unknown [id number] 2.16.8 40.1.648044.3.579.2.462 Social History Date Type Detail Facility Start: 02-23-2024 End: 09-20-2024 Tobacco smoking status NHIS Never smoked tobacco (finding) [facility] Start: 04-14-2024 Sex Male (finding) [facility] Start: 1990 Sex Assigned At Female [facility] Gender Identity Identifies as fe male gender (finding) [facility] Sexual Orientation Heterosexual (finding) [facility] Medical Equipment Procedure Code Equipment Code Equipment Origin al Text Equipment Identifier Dates Blood Sugar Diagnostic (Blood Glucose Test) strip [facility]: [facility]: 07-03-2024 Blood Sugar Diagnostic (Blood Glucose Test) strip [facility]: [facility] Start: 07-03-2024 Blood Sugar Diagnostic (Blood Glucose [...] Diagnostic (Blood Glucose Test) strip Start: 07-03-2024 End: 10-01-2024 [facility] misc Start: 07-03-2024 End: 10-01-2024 Blood Sugar Diagnostic (Blood Glucose Test) strip Start: 07-03-2024 End: 10-01-2024 Lanc[facility] misc Start: 07-03-2024 End: 10-01-2024 Blood Sugar Diagnostic (Blood Glucose Test) strip Start: 07-03-2024 End: 10-01-2024 [facility] misc Start: 07-03-2024 End: 10-01-2024 Goals Date Patient Goal Desired Activity /State Clinical Notes 12-25-2023 to 10-01-2024 Note Date & Type Note Facility 10-01-2024 Progress note [facility] 09-24-2024 Discharge summary Note Date/Time September 24, 2024 7:39am [facility] Medical Records Department [address] [place] [address] Discharge Summary 09/24/24 0734 MR#: [id number] Acct: [id number] Name: SAMEER CABALLERO Rep #:[id number] : 1990 34 From: Rhina Sweeney DO PCP: Care Physician,No Primary Status :ADM IN Location: [address] Providers Date of Admission: 09/20/24 Primary Care Physician: No Primary Care Phys Reason For Visit: CSECTION/CSECTION DELIVERY Diagnosis Discharge Diagnosis (1) Status post section: Status: Acute Code(s): Z98.891 - History of uterine scar from previous surgery (2) LGA (large for gestational age) fetus affecting mother, antepartum: Status: Acute Code(s): O36.60X0 - Maternal care for excessive growth, unspecified trimester, not applicable or unspecified (3) Elevated BP without diagnosis of hypertension: Status: Acute Code(s): R03.0 - Elevated blood-pressure reading, without diagnosis of hypertension (4) Non-stress test nonreactive: Status: Acute Code(s): O28.8 - Other abnormal findings on screening of mother (5) contractions: Status: Acute Code(s): O47.00 - False labor before 37 completed weeks of gestation, unspecified trimester (6) LGA (large for gestational age) fetus affecting management of mother: Status: Acute Code(s): O36.60X0 - Maternal care for excessive growth, unspecified trimester, not applicable or unspecified (7) Abnormal glucose tolerance test during , antepartum: Status: Acute Code(s): O99.810 - Abnormal glucose complicating (8) Supervision of high-risk : Status: Acute Code(s): O09.90 - Supervision of high risk , unspecified, unspecified trimester Qualifiers: Trimester: third trimester Qualified Code(s): O09.93 - Supervision of high risk , unspecified, third trimester (9) Obesity affecting : Status: Acute Code(s): O99.210 - Obesity complicating , unspecified trimester Qualifiers: Trimester: third trimester Obesity type affecting : unspecified obesity Qualified Code(s): O99.213 - Obesity complicating ,third trimester (10) : Status: Acute Code(s): Z34.90 - Encounter for supervision of normal , unspecified, unspecifiedtrimester Qualifiers: Weeks of gestation: 38 weeks Qualified Code(s): Z3A.38 - 38 weeks gestation of (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 I have discussed with the patient the risks, benefits, and alternatives of the procedure which include but are notlimited to risks of anesthesia, bleeding, infection, possible damage to bowel, bladder, or surrounding vasculature which could lead to additional surgery to evaluate any complications. Patient agrees to procedure and wishes to proceed. ACOG/uptodate references given for additional information regarding procedure. plan for 3 grams Ancef and will use Exparel + bupivacaine 0.5% at facial closuredue to inability to use Duramorph Medications at Discharge Home Medications blood sugar diagnostic (Blood Glucose Test strips) #120 ea 07/03/24 blood-glucose meter #1 ea 07/03/24 lancets #100 ea 07/03/24 ibuprofen 800 mg tablet 800 mg PO Q8H PRN pain #30 tabs 09/20/24 oxycodone-acetaminophen 5 mg-325 mg tablet (Percocet) 1 tab PO Q4H PRN pain 7 days #20 tabs 09/20/24 labetalol 200 mg tablet 200 mg PO TID 30 days #90 tabs 09/24/24 nifedipine 30 mg tablet,extended release 24 hr (Procardia XL) 30 mg PO DAILY #30tabs 09/24/24 Hospital Course Operations section Summary of Care Provided Minutes Spent on Discharge: 20 Hospital Course: The patient was admitted to L&D on 09/20/24 for a primary section for LGA and baby did weigh 10 pounds 6 oz. She experienced a syncopal episode after passing a clot on Monday night but remained stable. On day #1 her blood pressures were noted to be high and she was symptomatic with a headache. She was started on labetalol which was then increased over the next 2 days. On post day #3 procardia was started. Her pressures this am are stable, her headache is down to a 4/10 and her baby is planned to be discharged from the special care nursery this afternoon. The plan is to discharge her to home on percocet and ibuprofen for pain and also procardia 30 mg xl daily as well as labetalol 200 mg tid with close follow up in 1 week in our office. Weight / BMI Weight Weight: 315 lb Body Mass Index (BMI) 52.4 ABG / Lab / Microbiology Data 09/21/24 06:05 09/20/24 05:07 D/C Instructions Discharge Activity: May Not Drive (for 2 weeks or while taking narcotic pain medications.), May Shower and May Take a Tub Bath (in 7 days.) May resume sexual activity in: 4-6 weeks Weight Bearing Status: Full weight bearing Lifting Restrictions: 20 pounds Call your doctor if your incision/area has: Continuous Slow Oozing, Sudden Increased Bleeding, Increased Pain/ Swelling, Increased Redness and Foul Smelling Discharge Call your doctor if you observe: Fever of 101 or Higher and Using more than 1 pad per hour Suture Line Care: Avoid Pulling/Pushing and Avoid Pinching/Bending Cleanse incision/area with: Soap & Water and Keep Dressing Clean & Dry DC O2, CPAP, BIPAP Needs Home O2 Discharge instructions: No Please Follow Up With: Rhina Sweeney DO When: Call [phone] to make an appointment for an incision check in 1-2 weeks. Meaningful Use Info Meaningful Use Meaningful Use Diagnoses (Choose all that apply): None applicable Discharge Plan Admission Admit Date/Time: 09/20/24 04:59 Primary Reason for Your Visit: section Attending Provider: Rhina Sweeney Primary Care Provider: Care Physician,Daisy Primary Discharge Orders/Prescriptions Prescriptions: New ibuprofen 800 mg tablet 800 mg PO Q8H PRN (Reason: pain) Qty: 30 0RF oxycodone-acetaminophen [Percocet] 5-325 mg tablet 1 tab PO Q4H PRN (Reason: pain) 7 Days Qty: 20 0RF labetalol 200 mg tablet 200 mg PO TID 30 Days Qty: 90 0RF nifedipine [Procardia XL] 30 mg tablet extended release 24hr 30 mg PO DAILY Qty: 30 0RF No Action (DME) Blood Glucose Test Strip See Rx Instructions .MEDSUPPLY Qty: 120 0RF Rx Instructions: As directed-fasting 3-4 times per week (DME) blood-glucose meter Misc See Rx Instructions .MEDSUPPLY Qty: 1 0RF Rx Instructions: As directed- Test fasting 3-4 times per week (DME) lancets Misc See Rx Instructions .MEDSUPPLY Qty: 100 0RF Rx Instructions: As directed-fasting 3-4 times per week Referrals / Follow Up: Care Physician,No Primary [Primary Care Provider] - Disposition Disposition (needs filled in before D/C Order can be placed): Home, Self Care 09/24/24 0739 <Electronically signed by Rhina Sweeney DO> Cosigner Signature (if applicable): CC: Dr. Rhina Sweeney DO; No Primary Care Physician~ Signed [facility] Work Phone: 1(962) 563-520808-19-2025 Discharge summary [facility] Medical Records Department [address] [place] [address] Discharge Summary 09/24/24 0734 MR#: [id number] Acct: [id number] Name: SAMEER CABALLERO Rep #:[id number] : 1990 34 From: Rhina Sweeney DO PCP: Care Physician,No Primary Status :ADM IN Location: [address] Providers Date of Admission: 09/20/24 Primary Care Physician: No Primary Care Phys Reason For Visit: CSECTION/CSECTION DELIVERY Diagnosis Discharge Diagnosis (1) Status post section: Status: Acute Code(s): Z98.891 - History of uterine scar from previous surgery (2) LGA (large for gestational age) fetus affecting mother, antepartum: Status: Acute Code(s): O36.60X0 - Maternal care for excessive growth, unspecified trimester, not applicable or unspecified (3) Elevated BP without diagnosis of hypertension: Status: Acute Code(s): R03.0 - Elevated blood-pressure reading, without diagnosis of hypertension (4) Non-stress test nonreactive: Status: Acute Code(s): O28.8 - Other abnormal findings on screening of mother (5) contractions: Status: Acute Code(s): O47.00 - False labor before 37 completed weeks of gestation, unspecified trimester (6) LGA (large for gestational age) fetus affecting management of mother: Status: Acute Code(s): O36.60X0 - Maternal care for excessive growth, unspecified trimester, not applicable or unspecified (7) Abnormal glucose tolerance test during , antepartum: Status: Acute Code(s): O99.810 - Abnormal glucose complicating (8) Supervision of high-risk : Status: Acute Code(s): O09.90 - Supervision of high risk , unspecified, unspecified trimester Qualifiers: Trimester: third trimester Qualified Code(s): O09.93 - Supervision of high risk , unspecified, third trimester (9) Obesity affecting : Status: Acute Code(s): O99.210 - Obesity complicating , unspecified trimester Qualifiers: Trimester: third trimester Obesity type affecting : unspecified obesity Qualified Code(s):O99.213 - Obesity complicating ,third trimester (10) : Status: Acute Code(s): Z34.90 - Encounter for supervision of normal , unspecified, unspecifiedtrimester Qualifiers: Weeks of gestation: 38 weeks Qualified Code(s): Z3A.38 - 38 weeks gestation of (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 I have discussed with the patient the risks, benefits, and alternatives of theprocedure which include but are notlimited to risks of anesthesia, bleeding, infection, possible damage to bowel, bladder, or surrounding vasculature which could lead to additional surgery to evaluate any complications. Patient agrees to procedure and wishes to proceed. ACOG/uptodate references given for additional information regarding procedure. plan for 3 grams Ancef and will use Exparel + bupivacaine 0.5% at facial closuredue to inability touse Duramorph Medications at Discharge Home Medications blood sugar diagnostic (Blood Glucose Test strips) #120 ea 07/03/24 blood-glucose meter #1 ea 07/03/24 lancets #100 ea 07/03/24 ibuprofen 800 mg tablet 800 mg PO Q8H PRN pain #30 tabs 09/20/24 oxycodone-acetaminophen 5 mg-325 mg tablet (Percocet) 1 tab PO Q4H PRN pain 7 days #20 tabs 09/20/24 labetalol 200 mg tablet 200 mg PO TID 30 days #90 tabs 09/24/24 nifedipine 30 mg tablet,extended release 24 hr (Procardia XL) 30 mg PO DAILY #30tabs 09/24/24 Hospital Course Operations section Summary of Care Provided Minutes Spent on Discharge: 20 Hospital Course: The patient was admitted to L&D on 09/20/24 for a primary section for LGA and baby did weigh 10 pounds 6 oz. She experienced a syncopal episode after passing a clot on Monday night but remained stable. On day #1 her blood pressures were noted to be high and she was symptomatic with a headache. She was started on labetalol which was then increased over the next 2 days. On post day #3 procardia was started. Her pressures this am are stable, her headache is down to a 4/10 and her baby is planned to be discharged from the special care nursery this afternoon. The planis to discharge her to home on percocet and ibuprofen for pain and also procardia 30 mg xl daily aswell as labetalol 200 mg tid with close follow up in 1 week in our office. Weight / BMI Weight Weight: 315 lb Body Mass Index (BMI) 52.4 ABG / Lab / Microbiology Data 09/21/24 06:05 09/20/24 05:07 D/C Instructions Discharge Activity: May Not Drive (for 2 weeks or while taking narcotic pain medications.), May Shower and May Take a Tub Bath (in 7 days.) May resume sexual activity in: 4-6 weeks Weight Bearing Status: Full weight bearing Lifting Restrictions: 20 pounds Call your doctor if your incision/area has: Continuous Slow Oozing, Sudden Increased Bleeding, Increased Pain/ Swelling, Increased Redness and Foul Smelling Discharge Call your doctor if you observe: Fever of 101 or Higher and Using more than 1 pad per hour Suture Line Care: Avoid Pulling/Pushing and Avoid Pinching/Bending Cleanse incision/area with: Soap & Water and Keep Dressing Clean & Dry DC O2, CPAP, BIPAP Needs Home O2 Discharge instructions: No Please Follow Up With: Rhina Sweeney DO When: Call [phone] to make an appointment for an incision check in 1-2 weeks. Meaningful Use Info Meaningful Use Meaningful Use Diagnoses (Choose all that apply): None applicable Discharge Plan Admission Admit Date/Time: 09/20/24 04:59 Primary Reason for Your Visit: section Attending Provider: Rhina Sweeney Primary Care Provider: Care Physician,Daisy Primary Discharge Orders/Prescriptions Prescriptions: New ibuprofen 800 mg tablet 800 mg PO Q8H PRN (Reason: pain) Qty: 30 0RF oxycodone-acetaminophen [Percocet] 5-325 mg tablet 1 tab PO Q4H PRN (Reason: pain) 7 Days Qty: 20 0RF labetalol 200 mg tablet 200 mg PO TID 30 Days Qty: 90 0RF nifedipine [Procardia XL] 30 mg tablet extended release 24hr 30 mg PO DAILY Qty: 30 0RF No Action (DME) Blood Glucose Test Strip See Rx Instructions .MEDSUPPLY Qty: 120 0RF Rx Instructions: As directed-fasting 3-4 times per week (DME) blood-glucose meter Misc See Rx Instructions .MEDSUPPLY Qty: 1 0RF Rx Instructions: As directed- Test fasting 3-4 times per week (DME) lancets Misc See Rx Instructions .MEDSUPPLY Qty: 100 0RF Rx Instructions: As directed-fasting 3-4 times per week Referrals / Follow Up: Care Physician,No Primary [Primary Care Provider] - Disposition Disposition (needs filled in before D/C Order can be placed): Home, Self Care 09/24/24 0739 Cosigner Signature (if applicable): CC: Dr. Rhina Sweeney DO; No Primary Care Physician~ Signed [facility]08-19-2025 [facility] Medical Records Department [address] [place] [address] Discharge Summary 09/24/24 0734 MR#: [id number] Acct: [id number] Name: SAMEER CABALLERO Rep #: [id number] : 1990 34 From: Rhina Sweeney DO PCP: Care Physician,No Primary Status:ADM IN Location: [facility]862-2 Providers Date of Admission: 09/20/24 Primary Care Physician: No Primary Care Phys Reason For Visit: CSECTION/CSECTION DELIVERY Diagnosis Discharge Diagnosis (1) Status post section: Status: Acute Code(s): Z98.891 - History of uterine scar from previous surgery (2) LGA (large for gestational age) fetus affecting mother, antepartum: Status: Acute Code(s): O36.60X0 - Maternal care for excessive growth, unspecified trimester, not applicable or unspecified (3) Elevated BP without diagnosis of hypertension: Status: Acute Code(s): R03.0 - Elevated blood-pressure reading, without diagnosis of hypertension (4) Non-stress test nonreactive: Status: Acute Code(s): O28.8 - Other abnormal findings on screening of mother (5) contractions: Status: Acute Code(s): O47.00 - False labor before 37 completed weeks of gestation, unspecified trimester (6) LGA (large for gestational age) fetus affecting management of mother: Status: Acute Code(s): O36.60X0 - Maternal care for excessive growth, unspecified trimester, not applicable or unspecified (7) Abnormal glucose tolerance test during , antepartum: Status: Acute Code(s): O99.810 - Abnormal glucose complicating (8) Supervision of high-risk : Status: Acute Code(s): O09.90 - Supervision of high risk , unspecified, unspecified trimester Qualifiers: Trimester: third trimester Qualified Code(s): O09.93 - Supervision of high risk , unspecified, third trimester (9) Obesity affecting : Status: Acute Code(s): O99.210 - Obesity complicating , unspecified trimester Qualifiers: Trimester: third trimester Obesity type affecting : unspecified obesity Qualified Code(s): O99.213 - Obesity complicating , third trimester (10) : Status: Acute Code(s): Z34.90 - Encounter for supervision of normal , unspecified, unspecified trimester Qualifiers: Weeks of gestation: 38 weeks Qualified Code(s): Z3A.38 - 38 weeks gestation of (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 I have discussed with the patient the risks, benefits, and alternatives of the procedure which include but are not limited to risks of anesthesia, bleeding, infection, possible damage to bowel, bladder, or surrounding vasculature which could lead to additional surgery to evaluate any complications. Patient agrees to procedure and wishes to proceed. ACOG/uptodate references given for additional information regarding procedure. plan for 3 grams Ancef and will use Exparel + bupivacaine 0.5% at facial closure due to inability to use Duramorph Medications at Discharge Home Medications blood sugar diagnostic (Blood Glucose Test strips) #120 07/03/24 blood-glucose meter #1 07/03/24 lancets #100 07/03/24 ibuprofen 800 mg tablet 800 mg PO Q8H PRN pain #30 tabs 09/20/24 oxycodone-acetaminophen 5 mg-325 mg tablet (Percocet) 1 tab PO Q4H PRN pain 7 days #20 tabs 09/20/24 labetalol 200 mg tablet 200 mg PO TID 30 days #90 tabs 09/24/24 nifedipine 30 mg tablet,extended release 24 hr (Procardia XL) 30 mg PO DAILY #30 tabs 09/24/24 Hospital Course Operations section Summary of Care Provided Minutes Spent on Discharge: 20 Hospital Course: The patient was admitted to [facility] on 09/20/24 for a primary section for LGA and baby did weigh 10 pounds 6 oz. She experienced a syncopal episode after passing a clot on Monday night but remained stable. On day #1 her blood pressures were noted to be high and she was symptomatic with a headache. She was started on labetalol which was then increased over the next 2 days. On post day #3 procardia was started. Her pressures this am are stable, her headache is down to a 4/10 and her baby is planned to be discharged from the special care nursery this afternoon. The plan is to discharge her to home on percocet and ibuprofen for pain and also procardia 30 mg xl daily as well as labetalol 200 mg tid with close follow up in 1 week in our office. Weight / BMI Weight Weight: 315 lb Body Mass Index (BMI) 52.4 ABG / Lab / Microbiology Data 09/21/24 06:05 09/20/24 0 (more content not included)...[facility]08-18-2025 Progress note Author Maris Aragon [facility] Note Date/Time September 23, 2024 5: 13pm [facility] Medical Records Department [address] [place] [address] Progress Note - OBGYN 09/22/24 1029 MR#: [id number] Acct: [id number] Name: SAMEER CABALLERO Rep #:[id number] : 1990 34 From: Maris alcazar MD PCP: Care Physician,No Primary Status :ADM IN Location: [id number] Subjective Subjective Patient doing well without complaints. Tolerating PO. Ambulating and voiding without difficulty. infant feeding well. Denies chest pain, shortness of breath,calf pain/swelling, fevers, chills, lightheadedness. Objective Data Objective Data Vital Signs: Vital Signs Temp Pulse Resp BP Pulse Ox O2 Del Method 98.2 F 85 14 138/83 H 98 Room Air 09/22/24 09:45 09/22/24 09:45 09/22/24 09:45 09/22/24 09:45 09/22/24 09:45 09/22/24 09:45 Oxygen Delivery Method Room Air Weight: 315 lb Body Mass Index (BMI) 52.4 Intake & Output: Intake and Output for Last 24 Hours 09/20/24 09/21/24 09/22/24 23:59 23:59 23:59 Intake Total 3294.17 / 3294.17 Output Total 2049 / 2049 500 / 500 Balance 1244.17 / 1244.17 -500 / -500 Lab / Micro Data 09/21/24 06:05 09/20/24 05:07 ROS Constitutional Constitutional: Reports systems reviewed and no addt'l complaints, except as documented Cardiovascular Cardiovascular: Reports systems reviewed and no addt'l complaints, except as documented Respiratory/Chest Respiratory/Chest: Reports systems reviewed and no addt'l complaints, except as documented Gastrointestinal Gastrointestinal: Reports systems reviewed and no addt'l complaints, except as documented Physical Exam Const alert, oriented x3 and no apparent distress HEENT Head and Scalp: atraumatic Resp normal respiratory effort GI soft to palpation and non-tender Inspection: incision intact, healing well and drainage (none) Bimanual Exam - Vag & Uterus: uterus non-tender Uterus Palpation: uterus fundus firm (below Umbilicus) Assessment & Plan (1) Status post section: COMMENT: primary c/s PLAN: Plan s/p LTCS PPD # 2 1. routine post care 2. breast feeding- support given 3. rh positive 4. rubella immune 09/23/24 1713 <Electronically signed by Maris Aragon MD> Cosigner Signature (if applicable): CC: ~ Signed [facility] Work Phone: 1(336) 724-681308-18-2025 Progress note [facility] Medical Records Department [address] [place] [address] Progress Note - OBGYN 09/22/24 1029 MR#: [id number] Acct: [id number] Name: SAMEER CABALLERO Rep #:[id number] : 1990 34 From: Maris alcazar MD PCP: Care Physician,No Primary Status :ADM IN Location: [place] [address]-1 Subjective Subjective Patient doing well without complaints. Tolerating PO. Ambulating and voiding without difficulty. infant feeding well. Denies chest pain, shortness of breath,calf pain/swelling, fevers, chills, lightheadedness. Objective Data Objective Data Vital Signs: Vital Signs Temp Pulse Resp BP Pulse Ox O2 Del Method 98.2 F 85 14 138/83 H 98 Room Air 09/22/24 09:45 09/22/24 09:45 09/22/24 09:45 09/22/24 09:45 09/22/24 09:45 09/22/24 09:45 Oxygen Delivery Method Room Air Weight: 315 lb Body Mass Index (BMI) 52.4 Intake & Output: Intake and Output for Last 24 Hours 09/20/24 09/21/24 09/22/24 23:59 23:59 23:59 Intake Total 3294.17 / 3294.17 Output Total 2049 500 / 500 Balance 1244.17 / 1244.17 -500 / -500 Lab / Micro Data 09/21/24 06:05 09/20/24 05:07 ROS Constitutional Constitutional: Reports systems reviewed and no addt'l complaints, except as documented Cardiovascular Cardiovascular: Reports systems reviewed and no addt'l complaints, except as documented Respiratory/Chest Respiratory/Chest: Reports systems reviewed and no addt'l complaints, except as documented Gastrointestinal Gastrointestinal: Reports systems reviewed and no addt'l complaints, except as documented Physical Exam Const alert, oriented x3 and no apparent distress HEENT Head and Scalp: atraumatic Resp normal respiratory effort GI soft to palpation and non-tender Inspection: incision intact, healing well and drainage (none) Bimanual Exam - Vag & Uterus: uterus non-tender Uterus Palpation: uterus fundus firm (below Umbilicus) Assessment & Plan (1) Status post section: COMMENT: primary c/s PLAN: Plan s/p LTCS PPD # 2 1. routine post care 2. breast feeding- support given 3. rh positive 4. rubella immune 09/23/24 1713 Cosigner Signature (if applicable): CC: ~ Signed [facility]08-18-2025 Progress note Author Earline Andrade [facility] Note Date/Time September 23, 2024 8: 16am [facility] Medical Records Department [address] [place] [address] Progress Note - OBGYN 09/23/2414 MR#: [id number] Acct: [id number] Name: SAMEER CABALLERO Rep #:[id number] : 1990 34 From: Earline Andrade CNM PCP: Care Physician,No Primary Status :ADM IN Location: [id number] Subjective Subjective Patient doing well without complaints. Tolerating PO. Ambulating and voiding without difficulty. Feeding well. Denies chest pain, shortness of breath, calf pain/swelling, fevers, chills, lightheadedness. Objective Data Objective Data Vital Signs: Vital Signs Temp Pulse Resp BP Pulse Ox O2 Del Method 98.5 F 88 16 142/85 H 98 Room Air 09/23/24 02:40 09/23/24 02:40 09/23/24 02:40 09/23/24 06:04 09/23/24 02:40 09/23/24 02:40 Oxygen Delivery Method Room Air Weight: 315 lb Body Mass Index (BMI) 52.4 Intake & Output: Intake and Output for Last 24 Hours 09/21/24 09/22/24 09/23/24 23:59 23:59 23:59 Output Total 500 / 500 Balance -500 / -500 Lab / Micro Data Attestation: I reviewed the patient's lab results. 09/21/24 06:05 09/20/24 05:07 ROS Constitutional Constitutional: Reports systems reviewed and no addt'l complaints, except as documented; Denies anorexia or headache(s) Cardiovascular Cardiovascular: Reports systems reviewed and no addt'l complaints, except as documented; Denies dizziness, dyspnea, nausea or tachypnea Respiratory/Chest Respiratory/Chest: Reports systems reviewed and no addt'l complaints, except as documented; Denies cough, dyspnea, shortness of breath at rest or tachypnea Gastrointestinal Gastrointestinal: Reports systems reviewed and no addt'l complaints, except as documented; Denies abdominal pain, constipation or nausea Genitourinary Genitourinary: Reports systems reviewed and no addt'l complaints, except as documented; Denies burning urination, difficulty urinating, dysuria, urinary frequency or urinary incontinence Musculoskeletal Musculoskeletal: Reports systems reviewed and no addt'l complaints, except as documented Integumentary Integumentary: Reports systems reviewed and no addt'l complaints, except as documented Neurologic Neurologic: Reports systems reviewed and no addt'l complaints, except as documented; Denies abnormal speech, dizziness or headache(s) Psychiatric Psychiatric: Reports systems reviewed and no addt'l complaints, except as documented Endocrine Endocrinology: Reports systems reviewed and no addt'l complaints, except as documented Hematologic/Lymphatic Hematologic/Lymphatic: Reports systems reviewed and no addt'l complaints, exceptas documented Physical Exam Const alert, oriented x3 and no apparent distress Neck full ROM Resp normal respiratory effort, normal air movement and no retractions Effort and Inspection: able to speak in complete sentences and symmetric chest movement GI soft to palpation Inspection: incision intact Bladder / Kidney Exam: bladder normal to palpation Uterus Palpation: uterus fundus firm Extremity normal to inspection and full ROM Psych mental status grossly normal, thought process normal and cooperative Assessment & Plan (1) Status post section: COMMENT: primary c/s PLAN: s/p LTCS PPD # 2 1. routine post care 2. breast feeding- support given 3. rh positive 4. rubella immune (2) LGA (large for gestational age) fetus affecting mother, antepartum: (3) Elevated BP without diagnosis of hypertension: (4) Non-stress test nonreactive: COMMENT: in office BPP 09/13. reactive on WP. d/c home (5) contractions: (6) LGA (large for gestational age) fetus affecting [...] weeks we can see how it goes. C/S 09/20 JV. (7) Abnormal glucose tolerance test during , antepartum: COMMENT: normal 3 hr, however the fasting was elevated. - monitor at home fasting levels: 2 wk of readings WNL except 2 and states high carb snack night prior. Will continue to monitor (8) Supervision of high-risk : QUALIFIERS: Trimester: third trimester Qualified Code(s): O09.93 - Supervision of high risk , unspecified, third trimester COMMENT: PRR, , LORY 09/26/24, Mc (9) Obesity affecting : QUALIFIERS: Trimester: third trimester Obesity type affecting : unspecified obesity Qualified Code(s): O99.213 - Obesity complicating , third trimester COMMENT: HgbA1c 5.2 , BMI 44. 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 Repeat pap 2024 @ pp visit (12) Seasonal allergies: Charges/Coding Multi Select Codes Urinary/Genital Urinary/Genital CPT Codes: No Charge 09/23/2416 <Electronically signed by Earline Andrade CNM> Cosigner Signature (if applicable): CC: ~ Signed [facility] Work Phone: 1(276) 749-621108-18-2025 Progress note [facility] Medical Records Department [address] [place] [address] Progress Note - OBGYN 09/23/24813 MR#: [id number] Acct: [id number] Name: SAMEER CABALLERO Rep #:[id number] : 1990 34 From: Earline Andrade CNM PCP: Care Physician,No Primary Status :ADM IN Location: [place] [address] Subjective Subjective Patient doing well without complaints. Tolerating PO. Ambulating and voiding without difficulty. Feeding well. Denies chest pain, shortness of breath, calf pain/swelling, fevers, chills, lightheadedness. Objective Data Objective Data Vital Signs: Vital Signs Temp Pulse Resp BP Pulse Ox O2 Del Method 98.5 F 88 16 142/85 H 98 Room Air 09/23/24 02:40 09/23/24 02:40 09/23/24 02:40 09/23/24 06:04 09/23/24 02:40 09/23/24 02:40 Oxygen Delivery Method Room Air Weight: 315 lb Body Mass Index (BMI) 52.4 Intake & Output: Intake and Output for Last 24 Hours 09/21/24 09/22/24 09/23/24 23:59 23:59 23:59 Output Total 500 / 500 Balance -500 / -500 Lab / Micro Data Attestation: I reviewed the patient's lab results. 09/21/24 06:05 09/20/24 05:07 ROS Constitutional Constitutional: Reports systems reviewed and no addt'l complaints, except as documented; Denies anorexia or headache(s) Cardiovascular Cardiovascular: Reports systems reviewed and no addt'l complaints, except as documented; Denies dizziness, dyspnea, nausea or tachypnea Respiratory/Chest Respiratory/Chest: Reports systems reviewed and no addt'l complaints, except as documented; Denies cough, dyspnea, shortness of breath at rest or tachypnea Gastrointestinal Gastrointestinal: Reports systems reviewed and no addt'l complaints, except as documented; Denies abdominal pain, constipation or nausea Genitourinary Genitourinary: Reports systems reviewed and no addt'l complaints, except as documented; Denies burning urination, difficulty urinating, dysuria, urinary frequency or urinary incontinence Musculoskeletal Musculoskeletal: Reports systems reviewed and no addt'l complaints, except as documented Integumentary Integumentary: Reports systems reviewed and no addt'l complaints, except as documented Neurologic Neurologic: Reports systems reviewed and no addt'l complaints, except as documented; Denies abnormal speech, dizziness or headache(s) Psychiatric Psychiatric: Reports systems reviewed and no addt'l complaints, except as documented Endocrine Endocrinology: Reports systems reviewed and no addt'l complaints, except as documented Hematologic/Lymphatic Hematologic/Lymphatic: Reports systems reviewed and no addt'l complaints, exceptas documented Physical Exam Const alert, oriented x3 and no apparent distress Neck full ROM Resp normal respiratory effort, normal air movement and no retractions Effort and Inspection: able to speak in complete sentences and symmetric chest movement GI soft to palpation Inspection: incision intact Bladder / Kidney Exam: bladder normal to palpation Uterus Palpation: uterus fundus firm Extremity normal to inspection and full ROM Psych mental status grossly normal, thought process normal and cooperative Assessment & Plan (1) Status post section: COMMENT: primary c/s PLAN: s/p LTCS PPD # 2 1. routine post care 2. breast feeding- support given 3. rh positive 4. rubella immune (2) LGA (large for gestational age) fetus affecting mother, antepartum: (3) Elevated BP without diagnosis of hypertension: (4) Non-stress test nonreactive: COMMENT: in office BPP 8/8. reactive on WP. d/c home (5) contractions: (6) LGA (large for gestational age) fetus affecting [...] 40 weeks we can see how it goes.C/S 09/20 JV. (7) Abnormal glucose tolerance test during , antepartum: COMMENT: normal 3 hr, however the fasting was elevated. - monitor at home fasting levels: 2 wk of readings WNL except 2 and states high carb snack night prior. Will continue to monitor (8) Supervision of high-risk : QUALIFIERS: Trimester: third trimester Qualified Code(s): O09.93 - Supervision of high risk , unspecified, third trimester COMMENT: PRR, , LORY 09/26/24, Mc (9) Obesity affecting : QUALIFIERS: Trimester: third trimester Obesity type affecting : unspecified obesity Qualified Code(s): O99.213 - Obesity complicating , third trimester COMMENT: HgbA1c 5.2 , BMI 44. 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 Repeat pap 2024 @ pp visit (12) Seasonal allergies: Charges/Coding Multi Select Codes Urinary/Genital Urinary/Genital CPT Codes: No Charge 09/23/24 0816 Cosigner Signature (if applicable): CC: ~ Signed [facility]08-16-2025 Progress note Author Milady Hensley [facility] Note Date/Time September 21, 2024 8: 46am [facility] Medical Records Department [address] [place] [address] Progress Note - OBGYN 09/21/24 0843 MR#: [id number] Acct: [id number] Name: FEDERICOSAMEER Rep #:[id number] : 1990 34 From: Milady Hensley CNM PCP: Care Physician,No Primary Status :ADM IN Location[id number] Subjective Subjective Patient doing well without complaints. Tolerating PO. Ambulating and voiding without difficulty. Feeding well. Denies chest pain, shortness of breath, calf pain/swelling, fevers, chills, lightheadedness. Objective Data Objective Data Vital Signs: Vital Signs Temp Pulse Resp BP Pulse Ox O2 Del Method 98.2 F 86 16 138/80 H 100 Room Air 09/21/24 08:10 09/21/24 08:10 09/21/24 08:10 09/21/24 08:10 09/21/24 08:10 09/21/24 08:10 Oxygen Delivery Method Room Air Weight: 315 lb Body Mass Index (BMI) 52.4 Intake & Output: Intake and Output for Last 24 Hours 09/19/24 09/20/24 09/21/24 23:59 23:59 23:59 Intake Total 3294.17 / 3294.17 Output Total 2049 / 2049 500 / 500 Balance 1244.17 / 1244.17 -500 / -500 Lab / Micro Data 09/21/24 06:05 09/20/24 05:07 Labs: Laboratory Results - last 24 hr 09/20/24 09:26: POC Glucose 85 09/21/24 06:05: WBC 13.9 H, RBC 3.33 L, Hgb 8.6 L, Hct 26.7 L, MCV 80.2 L, MCH 25.8 L, MCHC 32.2, RDW Std Deviation 43.9, RDW Coeff of [place] 15.3 H, Plt Count 226, MPV 10.8 Physical Exam Const alert and oriented x3 Chest inspection of chest normal Resp normal respiratory effort and normal air movement Cardio regular rate and regular rhythm GI normal to inspection, nondistended, normoactive bowel sounds Uterus Palpation: uterus fundus firm Extremity normal to inspection, full ROM and no calf tenderness Skin no rashes or lesions noted Skin Narrative: dressing c/d/i Psych mental status grossly normal Assessment & Plan (1) Status post section: COMMENT: primary c/s PLAN: Plan s/p LTCS PPD # 1 1. routine post care 2. breast feeding- support given 3. rh positive 4. rubella immune 5. with potential for transfer, if occurs safe for early d/c. rx transfered to [facility] pharmacy 09/21/24 0846 <Electronically signed by Milady Hensley CNM> Cosigner Signature (if applicable): CC: ~ Signed [facility] Work Phone: 1(298) 610-121308-16-2025 Progress note [facility] Medical Records Department [address] [place] [address] Progress Note - OBGYN 09/21/24 0843 MR#: [id number] Acct: [id number] Name: SAMEER CABALLERO Rep #:[id number] : 1990 34 From: Milady Hensley CNM PCP: Care Physician,No Primary Status :ADM IN [id number] Subjective Subjective Patient doing well without complaints. Tolerating PO. Ambulating and voiding without difficulty. Feeding well. Denies chest pain, shortness of breath, calf pain/swelling, fevers, chills, lightheadedness. Objective Data Objective Data Vital Signs: Vital Signs Temp Pulse Resp BP Pulse Ox O2 Del Method 98.2 F 86 16 138/80 H 100 Room Air 09/21/24 08:10 09/21/24 08:10 09/21/24 08:10 09/21/24 08:10 09/21/24 08:10 09/21/24 08:10 Oxygen Delivery Method Room Air Weight: 315 lb Body Mass Index (BMI) 52.4 Intake & Output: Intake and Output for Last 24 Hours 09/19/24 09/20/24 09/21/24 23:59 23:59 23:59 Intake Total 3294.17 / 3294.17 Output Total 2049 / 2049 500 / 500 Balance 1244.17 / 1244.17 -500 / -500 Lab / Micro Data 09/21/24 06:05 09/20/24 05:07 Labs: Laboratory Results - last 24 hr 09/20/24 09:26: POC Glucose 85 09/21/24 06:05: WBC 13.9 H, RBC 3.33 L, Hgb 8.6 L, Hct 26.7 L, MCV 80.2 L, MCH 25.8 L, MCHC 32.2, RDW Std Deviation 43.9, RDW Coeff of [place] 15.3 H, Plt Count 226, MPV 10.8 Physical Exam Const alert and oriented x3 Chest inspection of chest normal Resp normal respiratory effort and normal air movement Cardio regular rate and regular rhythm GI normal to inspection, nondistended, normoactive bowel sounds Uterus Palpation: uterus fundus firm Extremity normal to inspection, full ROM and no calf tenderness Skin no rashes or lesions noted Skin Narrative: dressing c/d/i Psych mental status grossly normal Assessment & Plan (1) Status post section: COMMENT: primary c/s PLAN: Plan s/p LTCS PPD # 1 1. routine post care 2. breast feeding- support given 3. rh positive 4. rubella immune 5. with potential for transfer, if occurs safe for early d/c. rx transfered to [facility] pharmacy 09/21/24 0846 Cosigner Signature (if applicable): CC: ~ Signed [facility]08-15-2025 Discharge summary Author Rhina Murcia [facility] Note Date/Time September 20, 2024 7: 22am [facility] Medical Records Department [address] [place] [address] Instructions for Home/Discharge Instructions 09/20/24 0720 MR#: [id number] Acct: [id number] Name: SAMEER CABALLERON Rep #:[id number] : 1990 34 From: Rhina Sweeney DO PCP: Care Physician,No Primary Status :ADM IN Discharge Instructions DC O2, CPAP, BIPAP needs Home O2 Discharge instructions: No Dressing / Incision Discharge Activity: May Not Drive (for 2 weeks or while taking narcotic pain medications.), May Shower and May Take a Tub Bath (in 7 days.) May resume sexual activity in: 4-6 weeks Weight Bearing Status: Full weight bearing Lifting Restrictions: 20 pounds Dressing / Incision Call your doctor if your incision/area has: Continuous Slow Oozing, Sudden Increased Bleeding, Increased Pain/ Swelling, Increased Redness and Foul Smelling Discharge Call your doctor if you observe: Fever of 101 or Higher and Using more than 1 pad per hour Suture Line Care: Avoid Pulling/Pushing and Avoid Pinching/Bending Cleanse incision/area with: Soap & Water and Keep Dressing Clean & Dry Follow Up Care Please Follow Up With: Rhina Sweeney DO When: Call [phone] to make an appointment for an incision check in 1-2 weeks. Test Results: Test results from this visit will be discussed in further detail at your follow- up appointment, if applicable. Discharge Plan Admission Admit Date/Time: 09/20/24 04:59 Primary Reason for Your Visit: section Attending Provider: Rhina Sweeney Primary Care Provider: Loyd Physician,Daisy Primary Discharge Orders/Prescriptions Prescriptions: New ibuprofen 800 mg tablet 800 mg PO Q8H PRN (Reason: pain) Qty: 30 0RF oxycodone-acetaminophen [Percocet] 5-325 mg tablet 1 tab PO Q4H PRN (Reason: pain) 7 Days Qty: 20 0RF No Action (DME) Blood Glucose Test Strip See Rx Instructions .MEDSUPPLY Qty: 120 0RF Rx Instructions: As directed-fasting 3-4 times per week (DME) blood-glucose meter Misc See Rx Instructions .MEDSUPPLY Qty: 1 0RF Rx Instructions: As directed- Test fasting 3-4 times per week (DME) lancets Misc See Rx Instructions .MEDSUPPLY Qty: 100 0RF Rx Instructions: As directed-fasting 3-4 times per week Referrals / Follow Up: Care Physician,Daisy Primary [Primary Care Provider] - Disposition Disposition (needs filled in before D/C Order can be placed): Home, Self Care 09/20/24 07<Electronically signed by Rhina Sweeney DO>Rhina Sweeney DO CC: No Primary Care Physician ~ Signed [facility] Work Phone: 1(847) 780-833608-15-2025 History and physical note Author Rhina Murcia [facility] Note Date/Time September 20, 2024 7: 20am [facility] Medical Records Department [address] [place] [address] H&P 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 Her baby's EFW on monday was 4561 grams and showed the abdominal circumference in the 100th%. She declines trial of labor. We have tested her twice for gestational diabetes and was found to be negative. She has also had some elevated blood pressures during the . Today it is elevated at 140's/90's. She is asymptomatic. Maternal Data Information LORY Calculator Estimated Delivery Date Method Current WG Current Estimate 09/26/24 LMP (Certain) 39w 1d Other Estimates 09/25/24 Ultrasound #1 39w 2d PFSH [facility] Medical History Seasonal allergies History of frequent headaches Home Medications ?Medication ?Instructions ?Recorded ?Last Taken ?Type blood sugar diagnostic (Blood #120 ea 07/03/24 Unknown Rx Glucose Test strips) blood-glucose meter #1 ea 07/03/24 Unknown Rx lancets #100 ea 07/03/24 Unknown Rx Allergy/AdvReac Type Severity Reaction Status Date / Time No Known Allergies Allergy Verified 09/20/24 05:05 Family History Grandmother CVA (cerebral vascular accident) Maternal Diabetes Maternal Grandfather Myocardial infarction, Onset Age: 54 Maternal Surgical History [place] teeth extracted Social History adopted: No household members: spouse housing: house number of children: 0 current occupational status: employed current occupation: [employer] current occupational exposures/hazards: No pets and animals: [...] physical activity do you participate in: none ganesh/church: [employer] seatbelt use: always do you feel safe at home: Yes additional social history: - Mc - hankins History 1 Elective abortions Hx Para 0 Spontaneous abortions Hx # Term Pregnancies Ectopic pregnancies Hx # Pregnancies Multiple births # of living children Visit Details Expected Delivery Route/Plan Labor Preferences- CB/BF classes: scheduled labor support person: Mc labor intervention preferences: open to epidural pain management options preferred: cut cord/dad catch: cord : yes PP control planned: discussed discussed possible routes of delivery and associated risks: [] special requests: [] Plans Covid status: [] Flu vaccine: [] Tdap vaccine: given Rhogam: na LARC form signed: yes Problem list reviewed and updated with the most current plan of care details and appropriate orders placed. Relevant counseling for the gestational age provided. Continue routine care and follow up unless otherwise noted in visit notes/problem list details OB Flowsheet Initial Weight: 267 lb Date -?-?-?-?-?-?-?-?-?-?-?-?- EGA [...] 5d 292 lb (+25 lb) 118/78 Negative -?-?-?-?-?-?-?-?--?-?-?-?- Negative 158 35 -?-?-?-?-?-?-?-?-?-?-?-?- MH-No VB, LOF. G ood Fm. FBS WNL except 2 in 2 weeks. Growth US WNL. rpt 4 wk 08/12/24 -?-?-?-?-?-?-?-?-?-?-?-?- 33w 4d 297 lb 6 oz (+30 lb 6 oz) 130/84 Negative -?-?-?-?-?-?-?-?-?-?-?-?- Negative 140 38 0 -?-?-?-?-?-?--?-?-?-?-?-?- -4 JV- ultr asound due next week. [...] 70s-80s. requesting P C/S due to size. ROS Constitutional Constitutional: Denies change in weight, fatigue, fever(s), headache(s), poor appetite or weakness Eyes Eyes: Denies blurry vision, change in vision, seeing flashes or spots in vision ENT HEENT: Denies dizziness, headache(s), loss taste/smell or sore throat Cardiovascular Cardiovascular: Denies chest pain, dizziness, dyspnea, irregular heart rhythm, leg edema, palpitations, rapid heart rate or vomiting Respiratory/Chest Respiratory/Chest: Denies chest tightness, cough, dyspnea or breast pain Gastrointestinal Gastrointestinal: Denies abdominal pain, anorexia, constipation, cramping, diarrhea, hemorrhoids, vomiting or weight changes Genitourinary Genitourinary: Denies dysuria, flank pain, genital lesions, genital pain, urinary frequency or urinary urgency Musculoskeletal Musculoskeletal: Denies back pain, difficulty walking, joint pain, limited range of motion, muscle cramps or numbness Integumentary Integumentary: Denies lesions or unusual bruising Neurologic Neurologic: Denies abnormal movements, abnormal speech, dizziness, numbness, seizure-like activity or syncope Psychiatric Psychiatric: Denies anxiety, behavioral changes, change in appetite, change in libido, cognitive impairment, confusion, depression, difficulty concentrating, hallucinations or suicidal thoughts Endocrine Endocrinology: Denies excessive sweating, polydipsia or polyuria Hematologic/Lymphatic Hematologic/Lymphatic: Denies easy bleeding, easy bruising or lymphadenopathy Allergic/Immunologic Allergic/Immunologic: Denies itchy eyes, lip swelling, seasonal rhinorrhea, rhinitis, throat swelling, tongue swelling, eczemia, wheezing or asthma Vital Signs Vital Signs Vital Signs: 09/20/24 05:18 09/20/24 05:18 09/20/24 05:18 Temperature Temperature Source Temporal Pulse Rate 99 Respiratory Rate Blood Pressure 141/91 H Blood Pressure Mean BP Systolic 141 BP Diastolic 91 Blood Pressure Source Blood Pressure Position Blood Pressure Location Pulse Ox Oxygen Delivery Method 09/20/24 05:18 09/20/24 05:18 09/20/24 05:18 Temperature 97.1 F L Temperature Source Pulse Rate Respiratory Rate 16 Blood Pressure Blood Pressure Mean BP Systolic BP Diastolic Blood Pressure Source Blood Pressure Position Blood Pressure Location Pulse Ox 99 Oxygen Delivery Method 09/20/24 05:18 09/20/24 05:18 09/20/24 05:18 Temperature Temperature Source Temporal Pulse Rate 99 Respiratory Rate Blood Pressure 141/93 H Blood Pressure Mean BP Systolic 141 BP Diastolic 93 Blood Pressure Source Blood Pressure Position Blood Pressure Location Pulse Ox Oxygen Delivery Method 09/20/24 05:18 09/20/24 05:18 09/20/24 05:18 Temperature 97.3 F L Temperature Source Pulse Rate Respiratory Rate 16 Blood Pressure Blood Pressure Mean BP Systolic BP Diastolic Blood Pressure Source Blood Pressure Position Blood Pressure Location Pulse Ox 99 Oxygen Delivery Method 09/20/24 05:20 Temperature 97.3 F L Temperature Source Axillary Pulse Rate 99 Respiratory Rate 16 Blood Pressure 141/93 H Blood Pressure Mean 109 BP Systolic BP Diastolic Blood Pressure Source Monitor Blood Pressure Position Semi-Fowlers Blood Pressure Location Right Arm Pulse Ox 99 Oxygen Delivery Method Room Air Weight Weight: 315 lb Body Mass Index (BMI) 52.4 Physical Exam Const alert, oriented x3, no apparent distress and healthy appearing General Appearance: cooperative; Negative for anxious HEENT normocephalic Face and Sinus: normal facial exam Eyes EOMs intact bilaterally and no scleral icterus General Eye: normal appearance of both eyes Neck full ROM and supple Lymph Lymphatic: no lymphadenopathy noted Resp normal respiratory effort Effort and Inspection: able to speak in complete sentences Cardio regular rate GI soft to palpation and non-tender Inspection: gravid Palpation: soft; Negative for tender Back/Spine no CVA tenderness Extremity normal to inspection, full ROM and no clubbing, cyanosis or edema General Extremity: Negative for calf tenderness or edema Skin Lesions: no lesions Rashes: no rashes Psych mental status grossly normal Labs Labs Labs: Blood Type A POSITIVE Antibody Screen NEGATIVE Hct 30.6 % (37-47) L Hgb 9.9 g/dL (12.0-15.0) L Obstetrics Ultrasound Syphilis Total Ab Nonreactive (Nonreactive) Rubella IgG Antibody REAC (Nonreactive) Hep Bs Antigen Nonreactive (Nonreactive) Hepatitis C Antibody Nonreactive (Nonreactive) Chlamydia DNA (MICAH) Negative (Negative) N.gonorrhoeae DNA (MICAH) Negative (Negative) HIV 1&2 Antibody Nonreactive (Nonreactive) Glucose 1 Hr 50 gm 139 mg/dL (70-140) Gest Glucose Tolerance mg/dL Assessment & Plan (1) LGA (large for gestational age) fetus affecting mother, antepartum: (2) Elevated BP without diagnosis of hypertension: (3) Non-stress test nonreactive: COMMENT: in office BPP 8/8. reactive on WP. d/c home (4) contractions: (5) LGA (large for gestational age) fetus affecting [...] weeks we can see how it goes. C/S 09/20 JV. (6) Abnormal glucose tolerance test during , antepartum: COMMENT: normal 3 hr, however the fasting was elevated. - monitor at home fasting levels: 2 wk of readings WNL except 2 and states high carb snack night prior. Will continue to monitor (7) Supervision of high-risk : QUALIFIERS: Trimester: third trimester Qualified Code(s): O09.93 - Supervision of high risk , unspecified, third trimester COMMENT: PRR, , LORY 09/26/24, Mc (8) Obesity affecting : QUALIFIERS: Trimester: third trimester Obesity type affecting : unspecified obesity Qualified Code(s): O99.213 - Obesity complicating , third trimester COMMENT: HgbA1c 5.2 , BMI 44. - weekly nsts starting at 34 weeks (9) : QUALIFIERS: Weeks of gestation: 38 weeks Qualified Code(s): Z3A.38 - 38 weeks gestation of COMMENT: GBS neg, NIPT low risk, nl anatomy PLAN: Plan After discussing the patient's diagnosis and treatment plan options, patient wishes to proceed with surgical management. I have discussed with the patient the risks, benefits, and alternatives of the procedure which include but are not limited to risks of anesthesia, bleeding, infection, possible damage to bowel, bladder, or surrounding vasculature which could lead to additional surgery to evaluate any complications. Patient agrees to procedure and wishes to proceed. ACOG/uptodate references given for additional information regarding procedure. plan for 3 grams Ancef and will use Exparel + bupivacaine 0.5% at facial closure due to inability to use Duramorph 09/20/24 0720 <Electronically signed by Rhina Sweeney DO> Cosigner Signature (if applicable): CC: Dr. Rhina Sweeney, DO; No Primary Care Physician~ Signed [facility] Work Phone: 1(460) 689-730508-15-2025 Procedure note [facility] Medical Records Department [address] [place] [address] Operative Report 09/20/24 0824 MR#: [id number] Acct: [id number] Name: SAMEER CABALLERO Rep #:[id number] : 1990 34 From: Rhina Sweeney DO PCP: Care Physician,No Primary Status :ADM IN Location: [place] [id number] Assessment & Plan (1) LGA (large for gestational age) fetus affecting mother, antepartum: (2) Elevated BP without diagnosis of hypertension: (3) Non-stress test nonreactive: COMMENT: in office BPP 09/13. reactive on WP. d/c home (4) Abnormal glucose tolerance test during , [...] 09/26/24, Mc (6) Obesity affecting : QUALIFIERS: Obesity type affecting : unspecified obesity Trimester: third trimester Qualified Code(s): O99.213 - Obesity complicating , third trimester COMMENT: HgbA1c 5.2 , BMI 44. - weekly nsts starting at 34 weeks (7) : QUALIFIERS: Weeks of gestation: 38 weeks Qualified Code(s): Z3A.38 - 38 weeks gestation of COMMENT: GBS neg, NIPT low risk, nl anatomy Maternal Data Information LORY Calculator Estimated Delivery Date Method Current WG Current Estimate 09/26/24 LMP (Certain) 39w 1d Other Estimates 09/25/24 Ultrasound #1 39w 2d Final LORY: 09/26/24 Final LORY Source: LMP Gestational age: 39 weeks 1 day Operative Report (OB) Details Procedure Type: low transverse Date of Procedure: 09/20/24 Procedure Start Time: 07:42 Procedure Stop Time: 08:42 Time of Delivery: 07:49 Pre-Operative Diagnosis: Suspected cephalopelvic disproportion and Other ( macrosomia suspected ) Other Pre-Operative diagnosis: none Post-Operative Diagnosis: Same as Pre-operative diagnosis Classification: Scheduled Type of Anesthesia: Spinal Special Medications: Exparel Antibiotic Given: Ancef 3 grams IV x1 Drain: Fernandez to straight drain Estimated Blood Loss: 700cc Findings Description of surgery: The patient is a 34 y/o @ 39 weeks 1 day with suspected macrosomia.She presented for a primary . The patient was counseled on the benefits and the risks of a trial of labor and she decided that she would like to proceed with a section only. Spinal anesthesia was placed without difficulty. Fernandez catheter was placed. The patient was placed in the dorsal supine position with leftward tilt. Patient was prepped and draped in the normal sterile fashion. Pfannenstiel skinincision was made with the scalpel and carried through to the underlying layer of fascia with the scalpel. Fascia was nicked in the midline and the incision extended laterally. The rectus bellies were dissected off superiorly and inferiorly with out complication both sharply and bluntly. The peritoneum was entered digitally. The incision was stretched and a low transverse uterine incision was made with the scalpel. The infant's head was delivered atraumatically followed by the anterior and posterior shoulders without complication the rest of the delivered. The cord was clamped and cut andthe was handed off to awaiting nurse. The placenta was delivered spontaneously immediately following and was noted to be intact and have a three-vessel cord. The uterus was exteriorized cleared of all clots and debris, and the incision was closed in a double layer closure using #1 Vicryl and #1 Monocryl. The ovaries and fallopian tubes were noted to be within normal limits. The uterus was returned to the maternal abdomen and gutters were cleared of all clotsand debris. The peritoneum was closed with 3-0 Monocryl in a running fashion. Gloves were changed prior to fascial closure. Fascia was closed with 0 PDS in a running fashion. Subcutaneous tissue was copiously irrigated and the skin was closed with 3-0 Monocryl in a subcuticular fashion. Mepilex dressing was applied without complication. Patient was taken to recovery in stable condition. It was discussed with the patient that based on the clinical information obtained during this encounter, combined with her history, at this time I would recommend either tolac or repeat section depending on the size of the next baby for future deliveries if further pregnancies are desired. Surgical findings: viable female infant Leatha, wt: 10 pounds 7 oz, head circumference 15 inches. Presentation: Vertex Amniotic Membrane Rupture Type: Artificial Amniotic Fluid Description: Clear Placental Delivery Description: Expressed Placenta Disposition: [facility] Specimen collected: No Cord Vessel Description: 3 Vessels Cord Entanglement: None Infant A gender: Female (1 minute): 8 (5 minute): 9 Delayed Cord Clamping: Yes Presser Machine business office technician: Yes Appliance Servicer: Kelli Stoll Tasks completed by construction project assistant: Closing and Retracting Additional research study assistant?: No Complications Complications: No Multi Select Codes Urinary/Genital Urinary/Genital CPT Codes: 66227 Delivery global pk 09/20/24 0840 Cosigner Signature (if applicable): CC: Dr. Rhina Sweeney DO; No Primary Care Physician~ Signed [facility]08-15-2025 Discharge summary [facility] Medical Records Department [address] [place] [address] Instructions for Home/Discharge Instructions 09/20/24 0720 MR#: [id number] Acct: [id number] Name: SAMEER CABALLERO Rep #:[id number] : 1990 34 From: Rhina Sweeney DO PCP: Care Physician,No Primary Status :ADM IN Discharge Instructions DC O2, CPAP, BIPAP needs Home O2 Discharge instructions: No Dressing / Incision Discharge Activity: May Not Drive (for 2 weeks or while taking narcotic pain medications.), May Shower and May Take a Tub Bath (in 7 days.) May resume sexual activity in: 4-6 weeks Weight Bearing Status: Full weight bearing Lifting Restrictions: 20 pounds Dressing / Incision Call your doctor if your incision/area has: Continuous Slow Oozing, Sudden Increased Bleeding, Increased Pain/ Swelling, Increased Redness and Foul Smelling Discharge Call your doctor if you observe: Fever of 101 or Higher and Using more than 1 pad per hour Suture Line Care: Avoid Pulling/Pushing and Avoid Pinching/Bending Cleanse incision/area with: Soap & Water and Keep Dressing Clean & Dry Follow Up Care Please Follow Up With: Rhina Sweeney DO When: Call [phone] to make an appointment for an incision check in 1-2 weeks. Test Results: Test results from this visit will be discussed in further detail at your follow- up appointment, if applicable. Discharge Plan Admission Admit Date/Time: 09/20/24 04:59 Primary Reason for Your Visit: section Attending Provider: Rhina Sweeney Primary Care Provider: Care Physician,No Primary Discharge Orders/Prescriptions Prescriptions: New ibuprofen 800 mg tablet 800 mg PO Q8H PRN (Reason: pain) Qty: 30 0RF oxycodone-acetaminophen [Percocet] 5-325 mg tablet 1 tab PO Q4H PRN (Reason: pain) 7 Days Qty: 20 0RF No Action (DME) Blood Glucose Test Strip See Rx Instructions .MEDSUPPLY Qty: 120 0RF Rx Instructions: As directed-fasting 3-4 times per week (DME) blood-glucose meter Misc See Rx Instructions .MEDSUPPLY Qty: 1 0RF Rx Instructions: As directed- Test fasting 3-4 times per week (DME) lancets Misc See Rx Instructions .MEDSUPPLY Qty: 100 0RF Rx Instructions: As directed-fasting 3-4 times per week Referrals / Follow Up: Care Physician,No Primary [Primary Care Provider] - Disposition Disposition (needs filled in before D/C Order can be placed): Home, Self Care 09/20/24 0722Jennifer Grace Murcia DO CC: No Primary Care Physician ~ Signed [facility]08-15-2025 History and physical note [facility] Medical Records Department [address] [facility] [place] [address] H&P 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 Her baby's EFW on monday was 4561 grams and showed the abdominal circumference inthe 100th%. She declines trial of labor. We have tested her twice for gestational diabetes and was found to be negative. She has also had some elevated blood pressures during the . Today it is elevated at 140's/90's. She is asymptomatic. Maternal Data Information LORY Calculator Estimated Delivery Date Method Current WG Current Estimate 09/26/24 LMP (Certain) 39w 1d Other Estimates 09/25/24 Ultrasound #1 39w 2d PFSH PFS Medical History Seasonal allergies History of frequent headaches Home Medications ?Medication ?Instructions ?Recorded ?Last Taken ?Type blood sugar diagnostic (Blood #120 ea 07/03/24 Unknown Rx Glucose Test strips) blood-glucose meter #1 ea 07/03/24 Unknown Rx lancets #100 ea 07/03/24 Unknown Rx Allergy/AdvReac Type Severity Reaction Status Date / Time No Known Allergies Allergy Verified 09/20/24 05:05 Family History Grandmother CVA (cerebral vascular accident) Maternal Diabetes Maternal Grandfather Myocardial infarction, Onset Age: 54 Maternal Surgical History [place] teeth extracted Social History adopted: No household members: spouse housing: house number of children: 0 current occupational status: employed current occupation: [employer] current occupational exposures/hazards: No pets and animals: [...] physical activity do you participate in: none ganesh/church: [employer] seatbelt use: always do you feel safe at home: Yes additional social history: - Mc - hankins History 1 Elective abortions Hx Para 0 Spontaneous abortions Hx # Term Pregnancies Ectopic pregnancies Hx # Pregnancies Multiple births # of living children Visit Details Expected Delivery Route/Plan Labor Preferences- CB/BF classes: scheduled labor support person: Mc labor intervention preferences: open to epidural pain management options preferred: cut cord/dad catch: cord : yes PP control planned: discussed discussed possible routes of delivery and associated risks: [] special requests: [] Plans Covid status: [] Flu vaccine: [] Tdap vaccine: given Rhogam: na LARC form signed: yes Problem list reviewed and updated with the most current plan of care details and appropriate ordersplaced. Relevant counseling for the gestational age provided. Continue routine care and follow up unless otherwise noted in visit notes/problem list details OB Flowsheet Initial Weight: 267 lb Date -?-?-?-?-?-?-?-?-?-?-?-?- EGA [...] 5d 292 lb (+25 lb) 118/78 Negative -?-?-?-?-?-?-?-?--?-?-?-?- Negative 158 35 -?-?-?-?-?-?-?-?-?-?-?-?- MH-No VB, LOF. G ood Fm. FBS WNL except 2 in 2 weeks. Growth US WNL. rpt 4 wk 08/12/24 -?-?-?-?-?-?-?-?-?-?-?-?- 33w 4d 297 lb 6 oz (+30 lb 6 oz) 130/84 Negative -?-?-?-?-?-?-?-?-?-?-?-?- Negative 140 38 0 -?-?-?-?-?-?--?-?-?-?-?-?- -4 JV- ultr asound due next week. [...] 70s-80s. requesting P C/S due to size. ROS Constitutional Constitutional: Denies change in weight, fatigue, fever(s), headache(s), poor appetite or weakness Eyes Eyes: Denies blurry vision, change in vision, seeing flashes or spots in vision ENT HEENT: Denies dizziness, headache(s), loss taste/smell or sore throat Cardiovascular Cardiovascular: Denies chest pain, dizziness, dyspnea, irregular heart rhythm, leg edema, palpitations, rapid heart rate or vomiting Respiratory/Chest Respiratory/Chest: Denies chest tightness, cough, dyspnea or breast pain Gastrointestinal Gastrointestinal: Denies abdominal pain, anorexia, constipation, cramping, diarrhea, hemorrhoids, vomiting or weight changes Genitourinary Genitourinary: Denies dysuria, flank pain, genital lesions, genital pain, urinary frequency or urinary urgency Musculoskeletal Musculoskeletal: Denies back pain, difficulty walking, joint pain, limited range of motion, muscle cramps or numbness Integumentary Integumentary: Denies lesions or unusual bruising Neurologic Neurologic: Denies abnormal movements, abnormal speech, dizziness, numbness, seizure-like activity or syncope Psychiatric Psychiatric: Denies anxiety, behavioral changes, change in appetite, change in libido, cognitive impairment, confusion, depression, difficulty concentrating, hallucinations or suicidal thoughts Endocrine Endocrinology: Denies excessive sweating, polydipsia or polyuria Hematologic/Lymphatic Hematologic/Lymphatic: Denies easy bleeding, easy bruising or lymphadenopathy Allergic/Immunologic Allergic/Immunologic: Denies itchy eyes, lip swelling, seasonal rhinorrhea, rhinitis, throat swelling, tongue swelling, eczemia, wheezing or asthma Vital Signs Vital Signs Vital Signs: 09/20/24 05:18 09/20/24 05:18 09/20/24 05:18 Temperature Temperature Source Temporal Pulse Rate 99 Respiratory Rate Blood Pressure 141/91 H Blood Pressure Mean BP Systolic 141 BP Diastolic 91 Blood Pressure Source Blood Pressure Position Blood Pressure Location Pulse Ox Oxygen Delivery Method 09/20/24 05:18 09/20/24 05:18 09/20/24 05:18 Temperature 97.1 F L Temperature Source Pulse Rate Respiratory Rate 16 Blood Pressure Blood Pressure Mean BP Systolic BP Diastolic Blood Pressure Source Blood Pressure Position Blood Pressure Location Pulse Ox 99 Oxygen Delivery Method 09/20/24 05:18 09/20/24 05:18 09/20/24 05:18 Temperature Temperature Source Temporal Pulse Rate 99 Respiratory Rate Blood Pressure 141/93 H Blood Pressure Mean BP Systolic 141 BP Diastolic 93 Blood Pressure Source Blood Pressure Position Blood Pressure Location Pulse Ox Oxygen Delivery Method 09/20/24 05:18 09/20/24 05:18 09/20/24 05:18 Temperature 97.3 F L Temperature Source Pulse Rate Respiratory Rate 16 Blood Pressure Blood Pressure Mean BP Systolic BP Diastolic Blood Pressure Source Blood Pressure Position Blood Pressure Location Pulse Ox 99 Oxygen Delivery Method 09/20/24 05:20 Temperature 97.3 F L Temperature Source Axillary Pulse Rate 99 Respiratory Rate 16 Blood Pressure 141/93 H Blood Pressure Mean 109 BP Systolic BP Diastolic Blood Pressure Source Monitor Blood Pressure Position Semi-Fowlers Blood Pressure Location Right Arm Pulse Ox 99 Oxygen Delivery Method Room Air Weight Weight: 315 lb Body Mass Index (BMI) 52.4 Physical Exam Const alert, oriented x3, no apparent distress and healthy appearing General Appearance: cooperative; Negative for anxious HEENT normocephalic Face and Sinus: normal facial exam Eyes EOMs intact bilaterally and no scleral icterus General Eye: normal appearance of both eyes Neck full ROM and supple Lymph Lymphatic: no lymphadenopathy noted Resp normal respiratory effort Effort and Inspection: able to speak in complete sentences Cardio regular rate GI soft to palpation and non-tender Inspection: gravid Palpation: soft; Negative for tender Back/Spine no CVA tenderness Extremity normal to inspection, full ROM and no clubbing, cyanosis or edema General Extremity: Negative for calf tenderness or edema Skin Lesions: no lesions Rashes: no rashes Psych mental status grossly normal Labs Labs Labs: Blood Type A POSITIVE Antibody Screen NEGATIVE Hct 30.6 % (37-47) L Hgb 9.9 g/dL (12.0-15.0) L Obstetrics Ultrasound Syphilis Total Ab Nonreactive (Nonreactive) Rubella IgG Antibody REAC (Nonreactive) Hep Bs Antigen Nonreactive (Nonreactive) Hepatitis C Antibody Nonreactive (Nonreactive) Chlamydia DNA (MICAH) Negative (Negative) N.gonorrhoeae DNA (MICAH) Negative (Negative) HIV 1&2 Antibody Nonreactive (Nonreactive) Glucose 1 Hr 50 gm 139 mg/dL (70-140) Gest Glucose Tolerance mg/dL Assessment & Plan (1) LGA (large for gestational age) fetus affecting mother, antepartum: (2) Elevated BP without diagnosis of hypertension: (3) Non-stress test nonreactive: COMMENT: in office BPP 09/13. reactive on WP. d/c home (4) contractions: (5) LGA (large for gestational age) fetus affecting [...] weeks we can see how it goes. C/S 09/20 JV. (6) Abnormal glucose tolerance test during , antepartum: COMMENT: normal 3 hr, however the fasting was elevated. - monitor at home fasting levels: 2 wk of readings WNL except 2 and states high carb snack night prior. Will continue to monitor (7) Supervision of high-risk : QUALIFIERS: Trimester: third trimester Qualified Code(s): O09.93 - Supervision of high risk , unspecified, third trimester COMMENT: PRR, , LORY 09/26/24, Mc (8) Obesity affecting : QUALIFIERS: Trimester: third trimester Obesity type affecting : unspecified obesity Qualified Code(s): O99.213 - Obesity complicating , third trimester COMMENT: HgbA1c 5.2 , BMI 44. - weekly nsts starting at 34 weeks (9) : QUALIFIERS: Weeks of gestation: 38 weeks Qualified Code(s): Z3A.38 - 38 weeks gestation of COMMENT: GBS neg, NIPT low risk, nl anatomy PLAN: Plan After discussing the patient's diagnosis and treatment plan options, patient wishes to proceed withsurgical management. I have discussed with the patient the risks, benefits, and alternatives of theprocedure which include but are not limited to risks of anesthesia, bleeding, infection, possible damage to bowel, bladder, or surrounding vasculature which could lead to additional surgery to evaluate any complications. Patient agrees to procedure and wishes to proceed. ACOG/uptodate references given for additional information regarding procedure. plan for 3 grams Ancef and will use Exparel + bupivacaine 0.5% at facial closure due to inability to use Duramorph 09/20/24 0720 Cosigner Signature (if applicable): CC: Dr. Rhina Sweeney, DO; No Primary Care Physician~ Signed [facility]08-12-2025 Progress note Author Earline Andrade [facility] Note Date/Time September 17, 2024 1: 56pm [facility] [address], [address] [place] [address] OFFICE VISIT Date of Service: 09/17/24 MR#: [id number] Acct: [id number] Name: SAMEER CABALLERO Rep #: [id number] : 1990 Provider: MARIO Andrade Age/Sex: 34/F Location: [facility] Status: Signed Intake Vital Signs 07/16/24 15:29 09/10/24 08:26 09/13/24 16:17 09/17/24 13:22 Height 5 ft 5 in 5 ft 5 in 5 ft 5 in 5 ft 5 in Weight: 314 lb 6 oz BMI 52.3 BP 138/98 H Intake Visit Reasons: 39 wk ob/nst 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: 39wk ob/nst Mechanical Assembly Required: No Is patient in pain?: No Allergies No Known Allergies Allergy (Verified 09/17/24 13:20) Medications ?Medication ?Instructions ?Recorded ?Confirmed ?Type multivit-min no.71-iron fum 28 cap PO 02/23/24 5 History mg-folate no.1 1 mg-dha 300 mg capsule (PNV-Paloma) blood sugar diagnostic (Blood #120 ea 07/03/24 5 Rx Glucose Test strips) blood-glucose meter #1 ea 07/03/24 09/17/24 Rx lancets #100 ea 07/03/24 09/17/24 Rx Last Menstrual Period: 12/21/23 : No PFSH PFSH Medical History Seasonal allergies History of frequent headaches Surgical History [place] teeth extracted Family History Grandmother CVA (cerebral vascular accident) Maternal Diabetes Maternal Grandfather Myocardial infarction, Onset Age: 54 Maternal Social History adopted: No household members: spouse housing: house number of children: 0 current occupational status: employed current occupation: [employer] current occupational exposures/hazards: No pets and animals: [...] physical activity do you participate in: none ganesh/church: [employer] seatbelt use: always do you feel safe [...] -?-?-?-?-?-?-?-?-?-?-?-?- Negative 155 -?-?-?-?-?-?-?-?-?-?-?-?- Sm- no vb crai ng labs today 05/02/24 -?-?-?-?-?-?-?-?-?-?-?-?- 19w 0d [...] and Symptoms of Preeclampsia, Feeding No , [place] Education and Family Medical Leave or Disability [...] this visit. [place] appropriate handout given. 09/17/24 5188 <Electronically signed by Earline rutherford CNM> Date _ Earline Acevedo Signature: Date (if applicable) CC: ~ [facility] Work Phone: [phone]) 523-935808-12-2025 Progress [facility] [address] [place] [address], [address] [place] [address] OFFICE VISIT Date of Service: 09/17/24 MR#: [id number] Acct: [id number] Name: SAMEER CABALLERO Rep #: [id number] : 1990 Provider: MARIO Andrade Age/Sex: 34/F Location: [facility] Status: Signed Intake Vital Signs 07/16/24 15:29 09/10/24 08:26 09/13/24 16:17 09/17/24 13:22 Height 5 ft 5 in 5 ft 5 in 5 ft 5 in 5 ft 5 in Weight: 314 lb 6 oz BMI 52.3 BP 138/98 H Intake Visit Reasons: 39 wk ob/nst 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: 39wk ob/nst Mechanical Assembly Required: No Is patient in pain?: No Allergies No Known Allergies Allergy (Verified 09/17/24 13:20) Medications ?Medication ?Instructions ?Recorded ?Confirmed ?Type multivit-min no.71-iron fum 28 cap PO 02/23/24 5 History mg-folate no.1 1 mg-dha 300 mg capsule (PNV-Paloma) blood sugar diagnostic (Blood #120 ea 07/03/24 5 Rx Glucose Test strips) blood-glucose meter #1 ea 07/03/24 09/17/24 Rx lancets #100 ea 07/03/24 09/17/24 Rx Last Menstrual Period: 12/21/23 : No PFSH PFSH Medical History Seasonal allergies History of frequent headaches Surgical History [place] teeth extracted Family History Grandmother CVA (cerebral vascular accident) Maternal Diabetes Maternal Grandfather Myocardial infarction, Onset Age: 54 Maternal Social History adopted: No household members: spouse housing: house number of children: 0 current occupational status: employed current occupation: [employer] current occupational exposures/hazards: No pets and animals: [...] physical activity do you participate in: none ganesh/church: [employer] seatbelt use: always do you feel safe [...] and Symptoms of Preeclampsia, Feeding No , Education and Family Medical [...] [place] appropriate handout given. 09/17/24 1356 s CNM> Date _ Earline Millerigner Signature: Date (if applicable) CC: ~ [facility] [id number] Progress [facility] [address] [place] [address], [address] [place] [address] OFFICE VISIT Date of Service: 09/10/24 MR#: [id number] Acct: [id number] Name: SAMEER CABALLERO Rep #: [id number] : 1990 Provider: Dr. Madeline Sweeney DO Age/Sex: 34/F [place] [facility] [place]: Signed Intake Vital Signs 07/16/24 15:29 09/02/24 08:49 09/10/24 08:25 09/10/24 08:26 Height 5 ft 5 in 5 ft 5 in 5 ft 5 in 5 ft 5 in Weight: 311 lb 7 oz BMI 51.8 BP 139/88 H Intake Visit Reasons: 38 wk ob/nst Mechanical Assembly Required: No Is patient in pain?: No Allergies No Known Allergies Allergy (Verified 09/10/24 08:25) Medications ?Medication ?Instructions ?Recorded ?Confirmed ?Type multivit-min no.71-iron fum 28 cap PO 02/23/24 5 History mg-folate no.1 1 mg-dha 300 mg capsule (PNV-Paloma) blood sugar diagnostic (Blood #120 ea 07/03/24 5 Rx Glucose Test strips) blood-glucose meter #1 ea 07/03/24 09/10/24 Rx lancets #100 ea 07/03/24 09/10/24 Rx Last Menstrual Period: 12/21/23 Zika: Zika virus screening: Negative : No PFSH PFSH Medical History Seasonal allergies History of frequent headaches Surgical History [place] teeth extracted Family History Grandmother CVA (cerebral vascular accident) Maternal Diabetes Maternal Grandfather Myocardial infarction, Onset Age: 54 Maternal Social History adopted: No household members: spouse housing: house number of children: 0 current occupational status: employed current occupation: [employer] current occupational exposures/hazards: No pets and animals: [...] physical activity do you participate in: none ganesh/church: [employer] seatbelt use: always do you feel safe [...] 140 0.5 -?-?-?-?-?-?-?-?-?-?-?-?- JV- growth scan with [facility] can not be done prior to [...] growth, unspecified trimester, not applicable or unspecified 09/10/24 0913 anthony Murcia DO> Date _ Rhina Sweeney DO [facility] Signature: Date (if applicable) CC: ~ [facility]07-28-2025 Progress [facility] [address], [address] [place] [address] OFFICE VISIT Date of Service: 09/02/24 MR#: [id number] Acct: [id number] Name: SAMEER CABALLERO Rep #: [id number] : 1990 Provider: Dr. Madeline Sweeney DO Age/Sex: 34/F [place] [facility] Status: Signed Intake Vital Signs 07/16/24 15:29 08/26/24 09:49 09/02/24 08:49 09/02/24 08:49 Height 5 ft 5 in 5 ft 5 in 5 ft 5 in 5 ft 5 in Weight: 300 lb 8 oz BMI 50.0 BP 132/87 H Intake Visit Reasons: 37 wk ob/nst Mechanical Assembly Required: No Is patient in pain?: No Allergies No Known Allergies Allergy (Verified 09/02/24 08:49) Medications ?Medication ?Instructions ?Recorded ?Confirmed ?Type multivit-min no.71-iron fum 28 cap PO 02/23/24 5 History mg-folate no.1 1 mg-dha 300 mg capsule (PNV-Paloma) blood sugar diagnostic (Blood #120 ea 07/03/24 5 Rx Glucose Test strips) blood-glucose meter #1 ea 07/03/24 09/02/24 Rx lancets #100 ea 07/03/24 09/02/24 Rx Last Menstrual Period: 12/21/23 Zika: Zika virus screening: Negative : No PFSH PFSH Medical History Seasonal allergies History of frequent headaches Surgical History [place] teeth extracted Family History Grandmother CVA (cerebral vascular accident) Maternal Diabetes Maternal Grandfather Myocardial infarction, Onset Age: 54 Maternal Social History adopted: No household members: spouse housing: house number of children: 0 current occupational status: employed current occupation: [employer] current occupational exposures/hazards: No pets and animals: [...] physical activity do you participate in: none ganesh/church: [employer] seatbelt use: always do you feel safe [...] VB. Nausea resolved. Anatomy US next week 04/23/25 -?-?-?-?-?-?-?-?-?-?-?-?- 22w 6d 285 lb 6 oz [...] and Symptoms of Preeclampsia, Feeding No , Education and Family Medical [...] Seasonal allergies J30.2 CPT Codes Non-Stress Test (30991) Assessment and Plan Assessment and Plan (1) [...] not applicable or unspecified 09/02/24 1007 e Velde DO> Date _ Rhina Sweeney DO Cosigner Signature: Date (if applicable) CC: ~ [facility]07-21-2025 Progress note [facility] Medical Records Department [address] [place] [address] OB Triage Progress Note 08/26/24 1149 MR#: [id number] Acct: [id number] Name: SAMEER CABALLERO Rep #:[id number] : 1990 34 From: Earline Andrade CNM PCP: Care Physician,No Primary Status :REG CLI Y DOS: Location: [place] [id number] Progress Notes Date of Service: 08/26/24 Progress Note: Patient presents for triage evaluation secondary to non reactive NST in the office at 35 weeks FHT: 140 Moderate variability reactive no decelerations category I tracing [place]: irregular Contractions Assessment and plan: BPP 8/8, Reactive NST, reassuring maternal and statuspatient discharged to home to follow-up in office at next appt. See problem list details for additional plan information. Laboratory Studies: Laboratory Tests 08/26/24 Range/Units 10:00 Urine Color Yellow (Yellow) Urine Clarity Cloudy (Clear) Urine pH 7.0 (5.0 - 8.0) Ur Specific [place] 1.015 (1.002-1.030) Urine Protein 15 H (Negative) mg/dl Urine Glucose (UA) Normal (Normal) mg/dl Urine Ketones Negative (Negative) mg/dl Urine Occult Blood Negative (Negative) /ul Urine Nitrite Negative (Negative) Urine Bilirubin Negative (Negative) mg/dL Urine Urobilinogen Normal (Normal) mg/dl Ur Leukocyte Esterase 25 H (Negative) /ul Charges/Coding Multi Select Codes Urinary/Genital Urinary/Genital CPT Codes: 31831-60 non-stress test [facility] Assessment & Plan (1) Non-stress test nonreactive: [...] visit (9) Seasonal allergies: 08/26/24 1151 s MARIO> Date Tamia Andrade CNM Cosigner Signature (if applicable): Date CC: MARIO Andrade; No Primary Care Physician ~ Signed [facility]07-16-2025 Radiology Diagnostic study note [facility] Imaging Services [address] [place] [address] OB Limited With Biometrics MR#: [id number] Acct: [id number] Name: SAMEER CABALLERO Rep #: [id number] : 1990 F 34 From: Armani Jalloh MD PCP: Care Physician,No Primary Status: REG CLI Study:OB Limited With Biometrics Date of Exam : 08/21/24 Exam# [id number] Ordering Dr: Shea Rodriguez LIVER TRIMMER LIVER TRIMMER-C PROCEDURE: OB LIMITED WITH BIOMETRICS 08/21/2024 REASON [...] with the normal expected range. Reading Location: [place] [address] CC: LIVER TRIMMER-Ronnie Rodriguez; No Primary Care Physician ~ Jacquard Loom Weaver: Signed [facility]06-17-2025 Radiology Diagnostic study note [facility] Imaging Services [address] [place], [place] [id number] OB Limited With Biometrics MR#: [id number] Acct: [id number] Name: SAMEER CABALLERO Rep #: [id number] : 1990 F 34 From: Armani Jalloh MD PCP: Care Physician,No Primary Status: REG CLI Study:OB Limited With Biometrics Date of Exam : 07/22/24 Exam# [id number] Ordering Dr: Shea Rodriguez NP LIVER TRIMMERJosefa PROCEDURE: OB LIMITED WITH BIOMETRICS 07/22/2024 REASON [...] of 33 weeks and 0days. 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 24, 2 025 3:30pm acute June 24, 2024 3:30pm Seasonal allergies acute June 242024 3:30pm Supervision of high-risk acute June 24, 2024 3 :30pm Obesity affecting deleted June 24, 2024 3:30pm acute July 16 3:24pm Seasonal allergies acute July 072024 3:24pm Supervision of high-risk acute July 16, 2024 3:24pm Abnormal glucose tolerance test during , antepartum resolved July 16, 2024 3:24pm LGA (large for gestational age) fetus deleted July 16, 2024 3:24pm Obesity affecting deleted July 16, 2024 3:24pm acute July 30 8:19am Supervision of high-risk acute July 30, 2024 8:19am Abnormal glucose tolerance test during , antepartum resolved July 30, 2024 8:19am LGA (large for gestational age) fetus deleted July 30, 2024 8:19am Obesity affecting deleted July 30, 2024 8:19am 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 August 12 8:07am LGA (large for gestational age) fetus affecting management of mother acute August 12 8:07am acute August 12, 2024 8:07am Seasonal allergies acute August 122024 8:07am Supervision of high-risk acute August 12, 2024 8 :07am Abnormal glucose tolerance test during , antepartum resolved August 12, 2024 8 :07am LGA (large for gestational age) fetus deleted August 12, 2024 8 :07am Obesity affecting deleted August 12, 2024 8:07am 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 August 19, 2024 8:32am LGA (large for gestational age) fetus affecting management of mother acute August 19, 2024 8:32am acute August 19 8:32am Seasonal allergies acute August 062024 8:32am Supervision of high-risk acute August 19, 2024 8:32am Abnormal glucose tolerance test during , antepartum resolved August 19, 2024 8:32am Obesity affecting deleted August 19, 2024 8:32am contractions deleted August 19, 2024 8:32am 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 August 26, 2024 8:38am LGA (large for gestational age) fetus affecting management of mother acute August 26, 2024 8:38am acute August 26 8:38am Seasonal allergies acute August 072024 8:38am Supervision of high-risk acute August 26, 2024 8:38am Abnormal glucose tolerance test during , antepartum resolved August 26, 2024 8:38am Obesity affecting deleted August 26, 2024 8:38am contractions deleted August 26, 2024 8:38am 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 August 26, 2024 9:37am LGA (large for gestational age) fetus affecting management of mother acute August 26, 2024 9:37am acute August 26 9:37am Seasonal allergies acute August 072024 9:37am Supervision of high-risk acute August 26, 2024 9:37am Abnormal glucose tolerance test during , antepartum resolved August 26, 2024 9:37am Non-stress test nonreactive deleted August 26, 2024 9:37am Obesity affecting deleted August 26, 2024 9:37am contractions deleted August 26, 2024 9:37am 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 September 02, 2024 8:33am LGA (large for gestational age) fetus affecting management of mother acute September 02, 2024 8:33am acute September 02 8:33am Seasonal allergies acute August 072024 8:33am Supervision of high-risk acute September 02, 2024 8:33am Abnormal glucose tolerance test during , antepartum resolved September 02, 2024 8:33am Non-stress test nonreactive deleted September 02, 2024 8:33am Obesity affecting deleted September 02, 2024 8:33am contractions deleted September 02, 2024 8:33am 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 September 10, 2024 8:15am LGA (large for gestational age) fetus affecting management of mother acute September 10, 2024 8:15am acute September 10 8:15am Seasonal allergies acute September 10, 2024 8:15am Supervision of high-risk acute September 10, 2024 8:15am Abnormal glucose tolerance test during , antepartum resolved September 10, 2024 8:15am Non-stress test nonreactive deleted September 10, 2024 8:15am Obesity affecting deleted September 10, 2024 8:15am contractions deleted 2024 8:15am Elevated BP without diagnosi s of hypertension acute September 13, 2024 12:00pm 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 September 13, 2024 12:00pm LGA (large for gestational age) fetus affecting management of mother acute September 13, 2024 12:00pm acute September 13 12:00pm Seasonal allergies acute September 13, 2024 12:00pm Supervision of high-risk acute September 13, 2024 12:00pm Abnormal glucose tolerance test during , antepartum resolved September 13, 2024 12:00pm Non-stress test nonreactive deleted September 13, 2024 12:00pm Obesity affecting deleted September 13, 2024 12:00pm contractions deleted 2024 12:00pm Elevated BP without diagnosi s of hypertension acute September 17 1:17pm 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 September 1:17pm LGA (large for gestational age) fetus affecting management of mother acute September 1:17pm acute September 17, 2 025 1:17pm Seasonal allergies acute September 17, 2024 1:17pm Supervision of high-risk acute September 17 1:17pm Abnormal glucose tolerance test during , antepartum resolved September 17 1:17pm Non-stress test nonreactive deleted September 17, 2024 1:17pm Obesity affecting deleted September 17, 2024 1:17pm contractions deleted 2024 1:17pm Elevated BP without diagnosi s of hypertension acute September 20 4:59am 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 September 4:59am LGA (large for gestational age) fetus affecting management of mother acute September 4:59am acute September 20, 2 025 4:59am Seasonal allergies acute September 20, 2024 4:59am Status post section acute September 20, 2024 4:59am Supervision of high-risk acute September 20 4:59am Abnormal glucose tolerance test during , antepartum resolved September 20 4:59am LGA (large for gestational age) fetus affecting mother, antepartum deleted September 20 4:59am Non-stress test nonreactive deleted September 20, 2024 4:59am Obesity affecting deleted September 20, 2024 4:59am contractions deleted 2024 4:59am Anemia acute October 01, 025 9:39am Elevated BP without diagnosi s of hypertension acute October 01 9:39am Status post section acute October 01, 2024 9:39am Postop check noneactive October 01, 2024 9:39am [facility] Work Phone: 1(816) 662-938605-19-2025 Evaluation note* Diagnosis Onset Date Resolution Status Admit Date 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 June 24 025 3:30pm acute June 24, 2024 3:30pm Seasonal allergies acute June 242024 3:30pm Supervision of high-risk acute June 24, 2024 3 :30pm Obesity affecting deleted June 24, 2024 3:30pm acute July 16 3:24pm Seasonal allergies acute July 072024 3:24pm Supervision of high-risk acute July 16, 2024 3:24pm Abnormal glucose tolerance test during , antepartum resolved July 16, 2024 3:24pm LGA (large for gestational age) fetus deleted July 16, 2024 3:24pm Obesity affecting deleted July 16, 2024 3:24pm acute July 30 8:19am Supervision of high-risk acute July 30, 2024 8:19am Abnormal glucose tolerance test during , antepartum resolved July 30, 2024 8:19am LGA (large for gestational age) fetus deleted July 30, 2024 8:19am Obesity affecting deleted July 30, 2024 8:19am 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 August 12, 025 8:07am LGA (large for gestational age) fetus affecting management of mother acute August 12 025 8:07am acute August 12, 2024 8:07am Seasonal allergies acute August 122024 8:07am Supervision of high-risk acute August 12, 2024 8 :07am Abnormal glucose tolerance test during , antepartum resolved August 12, 2024 8 :07am LGA (large for gestational age) fetus deleted August 12, 2024 8 :07am Obesity affecting deleted August 12, 2024 8:07am 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 August 19, 2024 8:32am LGA (large for gestational age) fetus affecting management of mother acute August 19, 2024 8:32am acute August 19 8:32am Seasonal allergies acute August 062024 8:32am Supervision of high-risk acute August 19, 2024 8:32am Abnormal glucose tolerance test during , antepartum resolved August 19, 2024 8:32am Obesity affecting deleted August 19, 2024 8:32am contractions deleted August 19, 2024 8:32am 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 August 26, 2024 8:38am LGA (large for gestational age) fetus affecting management of mother acute August 26, 2024 8:38am acute August 26 8:38am Seasonal allergies acute August 072024 8:38am Supervision of high-risk acute August 26, 2024 8:38am Abnormal glucose tolerance test during , antepartum resolved August 26, 2024 8:38am Obesity affecting deleted August 26, 2024 8:38am contractions deleted August 26, 2024 8:38am 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 August 26, 2024 9:37am LGA (large for gestational age) fetus affecting management of mother acute August 26, 2024 9:37am acute August 26 9:37am Seasonal allergies acute August 072024 9:37am Supervision of high-risk acute August 26, 2024 9:37am Abnormal glucose tolerance test during , antepartum resolved August 26, 2024 9:37am Non-stress test nonreactive deleted August 26, 2024 9:37am Obesity affecting deleted August 26, 2024 9:37am contractions deleted August 26, 2024 9:37am 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 September 02, 2024 8:33am LGA (large for gestational age) fetus affecting management of mother acute September 02, 2024 8:33am acute September 02 8:33am Seasonal allergies acute August 072024 8:33am Supervision of high-risk acute September 02, 2024 8:33am Abnormal glucose tolerance test during , antepartum resolved September 02, 2024 8:33am Non-stress test nonreactive deleted September 02, 2024 8:33am Obesity affecting deleted September 02, 2024 8:33am contractions deleted September 02, 2024 8:33am 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 September 10, 2024 8:15am LGA (large for gestational age) fetus affecting management of mother acute September 10, 2024 8:15am acute September 10 8:15am Seasonal allergies acute September 10, 2024 8:15am Supervision of high-risk acute September 10, 2024 8:15am Abnormal glucose tolerance test during , antepartum resolved September 10, 2024 8:15am Non-stress test nonreactive deleted September 10, 2024 8:15am Obesity affecting deleted September 10, 2024 8:15am contractions deleted 2024 8:15am Elevated BP without diagnosis of hypertension acute September 13, 2024 12:00pm 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 September 13, 2024 12:00pm LGA (large for gestational age) fetus affecting management of mother acute September 13, 2024 12:00pm acute September 13 12:00pm Seasonal allergies acute September 13, 2024 12:00pm Supervision of high-risk acute September 13, 2024 12:00pm Abnormal glucose tolerance test during , antepartum resolved September 13, 2024 12:00pm Non-stress test nonreactive deleted September 13, 2024 12:00pm Obesity affecting deleted September 13, 2024 12:00pm contractions deleted 2024 12:00pm Elevated BP without diagnosis of hypertension acute September 17, 2024 1:17pm 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 September 1:17pm LGA (large for gestational age) fetus affecting management of mother acute September 1:17pm acute September 17, 2 025 1:17pm Seasonal allergies acute September 17, 2024 1:17pm Supervision of high-risk acute September 17 1:17pm Abnormal glucose tolerance test during , antepartum resolved September 17 1:17pm Non-stress test nonreactive deleted September 17, 2024 1:17pm Obesity affecting deleted September 17, 2024 1:17pm contractions deleted 2024 1:17pm Elevated BP without diagnosis of hypertension acute September 20, 2024 4:59am 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 September 4:59am LGA (large for gestational age) fetus affecting management of mother acute September 4:59am acute September 20, 2 025 4:59am Seasonal allergies acute September 20, 2024 4:59am Status post section acute September 20, 2024 4:59am Supervision of high-risk acute September 20 4:59am Abnormal glucose tolerance test during , antepartum resolved September 20 4:59am LGA (large for gestational age) fetus affecting mother, antepartum deleted September 20 4:59am Non-stress test nonreactive deleted September 20, 2024 4:59am Obesity affecting deleted September 20, 2024 4:59am contractions deleted 2024 4:59am Anemia acute October 01, 2 025 9:39am Elevated BP without diagnosis of hypertension acute October 01, 2024 9:39am Status post section acute October 01, 2024 9:39am Postop check noneactive October 01, 2024 9:39am Routine Follow-Up noneact sylvia October 15, 2024 2:50pm [facility] Work Phone: 1(916) 205-319405-19-2025 Progress [facility] [address] [place] [address], [address] [place] [address] OFFICE VISIT Date of Service: 06/24/24 MR#: [id number] Acct: [id number] Name: SAMEER CABALLERO Rep #: [id number] : 1990 Provider: Dr. Madeline Sweeney DO Age/Sex: 34/F [place] [facility] [place]: Signed Intake Vital Signs 05/02/24 08:23 05/02/24 08:39 05/29/24 07:31 06/24/24 15:31 06/24/24 15:33 Height 5 ft 5 in 5 ft 5 in 5 ft 5 in 5 ft 5 in 5 ft 5 in Weight: 291 lb 4 oz BMI 48.4 BP 127/83 H Intake Visit Reasons: 27wk ob/glucose Mechanical Assembly Required: No Is patient in pain?: No Allergies No Known Allergies Allergy (Verified 06/24/24 15:31) Medications ?Medication ?Instructions ?Recorded ?Confirmed ?Type multivit-min no.71-iron fum 28 cap PO 02/23/24 5 History mg-folate no.1 1 mg-dha 300 mg capsule (PNV-[place]) Last Menstrual Period: 12/21/23 Zika: Zika virus screening: Negative : No PFSH PFSH Medical History Seasonal allergies History of frequent headaches Surgical History [place] teeth extracted Family History Grandmother CVA (cerebral vascular accident) Maternal Diabetes Maternal Grandfather Myocardial infarction, Onset Age: 54 Maternal Social History adopted: No household members: spouse housing: house number of children: 0 current occupational status: employed current occupation: [employer] current occupational exposures/hazards: No pets and animals: [...] physical activity do you participate in: none ganes[employer]/church: [employer] seatbelt use: always do you feel safe [...] and Symptoms of Preeclampsia, Feeding No , [place] Education and Family Medical Leave or Disability [...] Acute Qualifiers: Trimester: second trimester Qualified Code(s): O09. - Supervision of high risk , unspecified, [...] 1550 e Velde DO> Date _ Rhina Sweeney DO Cosigner Signature: Date (if applicable) CC: ~ [facility]05-19-2025 Progress note Author Rhina Murcia [facility] Note Date/Time June 24, 2024 3:50p m [facility] [address], [address] [place] [address] OFFICE VISIT Date of Service: 06/24/24 MR#: [id number] Acct: [id number] Name: SAMEER CABALLERO Rep #: [id number] : 1990 Provider: Dr. Madeline Sweeney DO Age/Sex: 34/F [place] [facility] Status: Signed Intake Vital Signs 05/02/24 08:23 05/02/24 08:39 05/29/24 07:31 06/24/24 15:31 06/24/24 15:33 Height 5 ft 5 in 5 ft 5 in 5 ft 5 in 5 ft 5 in 5 ft 5 in Weight: 291 lb 4 oz BMI 48.4 BP 127/83 H Intake Visit Reasons: 27wk ob/glucose Mechanical Assembly Required: No Is patient in pain?: No Allergies No Known Allergies Allergy (Verified 06/24/24 15:31) Medications ?Medication ?Instructions ?Recorded ?Confirmed ?Type multivit-min no.71-iron fum 28 cap PO 02/23/24 5 History mg-folate no.1 1 mg-dha 300 mg capsule (PNV-[place]) Last Menstrual Period: 12/21/23 Zika: Zika virus screening: Negative : No PFSH PFSH Medical History Seasonal allergies History of frequent headaches Surgical History [place] teeth extracted Family History Grandmother CVA (cerebral vascular accident) Maternal Diabetes Maternal Grandfather Myocardial infarction, Onset Age: 54 Maternal Social History adopted: No household members: spouse housing: house number of children: 0 current occupational status: employed current occupation: [employer] current occupational exposures/hazards: No pets and animals: [...] physical activity do you participate in: none ganesh/church: [employer] seatbelt use: always do you feel safe [...] Symptoms of Preeclampsia, Infant Feeding No , [place] Education and Family Medical Leave or Disability [...] Cosigner Signature: Date (if applicable) CC: ~ 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 May 29, 2024 7:20am Obesity affecting acute May 29, 2024 7:20am acute May 29 7:20am Seasonal allergies acute May 29, 2024 7:20am Supervision of high-risk acute May 29, 2024 7:20am 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 June 24, 2 3:30pm Obesity affecting acute June 24, 2024 [...] of high-risk acute September 02, 2024 8:33am [facility] Work Phone: 1([phone]) 891-376304-23-2025 Evaluation note* Diagnosis Onset Date Resolution Status [...] 8:15am acute September 10 8:15am contractions acute Augu 2024 8:15am Seasonal allergies acute September 10, 2024 8:15am Supervision of high-risk acute September 10, 2024 8:15am [facility] Work Phone: 1([phone]) 538-104004-23-2025 Evaluation note* Diagnosis Onset Date Resolution Status [...] acute September 17, 025 1:17pm contractions acute Aug2024 1:17pm Seasonal allergies acute September 17, 2024 1:17pm Supervision of high-risk acute September 17 1:17pm 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 September 4:59am LGA (large for gestational a ge) fetus affecting management of mother acute September 20 4:59am LGA (large for gestational a ge) fetus affecting mother, antepartum acute September 20 4:59am Non-stress test nonreactive acute September 20, 2024 4:59am Obesity affecting acute September 20, 2024 4:59am acute September 20, 2 025 4:59am contractions acute 2024 4:59am Seasonal allergies acute September 20, 2024 4:59am Status post section acute September 20, 2024 4:59am Supervision of high-risk acute September 20 4:59am [facility] Work Phone: 1([phone]) 876-343603-27-2025 Evaluation note* Diagnosis Onset Date Resolution Status [...] of high-risk acute August 19, 2024 8:32am [facility] Work Phone: 1([phone]) 470-972703-27-2025 Evaluation note* Diagnosis Onset Date Resolution Status [...] 8:07am 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 August 12 025 8:07am LGA (large for gestational a [...] of high-risk acute August 26, 2024 8:38am [facility] Work Phone: [phone] 411-463903-27-2025 Evaluation note* Diagnosis Onset Date Resolution Status [...] of high-risk acute August 26, 2024 9:37am [facility] Work Phone: 1([phone]) 102-112802-25-2025 Evaluation note* Diagnosis Onset Date Resolution Status [...] high-risk acute June 24, 2024 3 :30pm [facility] Work Phone: [phone]) 214-181102-25-2025 Evaluation note* Diagnosis Onset Date Resolution Status [...] of high-risk acute July 16, 2024 3:24pm [facility] Work Phone: [phone]) 435-202702-25-2025 Evaluation note* Diagnosis Onset Date Resolution Status [...] of high-risk acute July 16, 2024 3:24pm [facility] Work Phone: [phone]) 272-730802-25-2025 Evaluation note* Diagnosis Onset Date Resolution Status [...] of high-risk acute July 30, 2024 8:19am [facility] Work Phone: [phone]) 616-104801-24-2025 Evaluation note* Diagnosis Onset Date Resolution Status [...] high-risk acute June 24, 2024 3 :30pm [facility] Work Phone: [phone]) 657-285511-18-2024 NotePap Smear Specimen AdequacyNovember 2023 6:44pmComment.Satisfactory for evaluation. Endocervical and/or squamous metaplasticcells (endocervical component)are present.[facility] INTER[facility]ACED A#[id number] [facility] Memorial HospitalComment on above:Satisfactory for evaluation. Endocervical and/or [...] high-risk acute April 02, 2 025 9:16am [facility] Work Phone: Progress note Author Earline Andrade [facility] Note Date/Time August 26, 2024 11:5 1am [facility] Medical Records Department [address] [place] [address] OB Triage Progress Note 08/26/24 1149 MR#: [id number] Acct: [id number] Name: SAMEER CABALLERO Rep #:[id number] : 1990 34 From: Earline Andrade CNM PCP: Care Physician,No Primary Status :REG CLI Y DOS: Location: [place] [id number] Progress Notes Date of Service: 08/26/24 Progress Note: Patient presents for triage evaluation secondary to non reactive NST in the office at 35 weeks FHT: 140 Moderate variability reactive no decelerations category I tracing [place]: irregular Contractions Assessment and plan: BPP 09/13, Reactive NST, reassuring maternal and statuspatient discharged to home to follow-up in office at next appt. See problem list details for additional plan information. Laboratory Studies: Laboratory Tests 08/26/24 Range/Units 10:00 Urine Color Yellow (Yellow) Urine Clarity Cloudy (Clear) Urine pH 7.0 (5.0 - 8.0) Ur Specific [place] 1.015 (1.002-1.030) Urine Protein 15 H (Negative) mg/dl Urine Glucose (UA) Normal (Normal) mg/dl Urine Ketones Negative (Negative) mg/dl Urine Occult Blood Negative (Negative) /ul Urine Nitrite Negative (Negative) Urine Bilirubin Negative (Negative) mg/dL Urine Urobilinogen Normal (Normal) mg/dl Ur Leukocyte Esterase 25 H (Negative) /ul Charges/Coding Multi Select Codes Urinary/Genital Urinary/Genital CPT Codes: 23987-20 non-stress test Interp Assessment & Plan (1) Non-stress test nonreactive: COMMENT: in office BPP 8. reactive on WP. d/c home (2) contractions: [...] Andrade; No Primary Care Physician ~ Signed [facility] Work Phone: Progress note Author Rhina Murcia [facility] Note Date/Time September 02, 2024 10:0 5am [facility] [address] [place] [address], [address] [place] [address] OFFICE VISIT Date of Service: 09/02/24 MR#: [id number] Acct: [id number] Name: SAMEER CABALLERO Rep #: [id number] : 1990 Provider: Dr. Madeline Sweeney DO Age/Sex: 34/F [place] [facility] [place]: Signed Intake Vital Signs 07/16/24 15:29 08/26/24 09:49 09/02/24 08:49 09/02/24 08:49 Height 5 ft 5 in 5 ft 5 in 5 ft 5 in 5 ft 5 in Weight: 300 lb 8 oz BMI 50.0 BP 132/87 H Intake Visit Reasons: 37 wk ob/nst Mechanical Assembly Required: No Is patient in pain?: No Allergies No Known Allergies Allergy (Verified 09/02/24 08:49) Medications ?Medication ?Instructions ?Recorded ?Confirmed ?Type multivit-min no.71-iron fum 28 cap PO 02/23/24 5 History mg-folate no.1 1 mg-dha 300 mg capsule (PNV-Paloma) blood sugar diagnostic (Blood #120 ea 07/03/24 5 Rx Glucose Test strips) blood-glucose meter #1 ea 07/03/24 09/02/24 Rx lancets #100 ea 07/03/24 09/02/24 Rx Last Menstrual Period: 12/21/23 Zika: Zika virus screening: Negative : No PFSH PFSH Medical History Seasonal allergies History of frequent headaches Surgical History [place] teeth extracted Family History Grandmother CVA (cerebral vascular accident) Maternal Diabetes Maternal Grandfather Myocardial infarction, Onset Age: 54 Maternal Social History adopted: No household members: spouse housing: house number of children: 0 current occupational status: employed current occupation: [employer] current occupational exposures/hazards: No pets and animals: [...] physical activity do you participate in: none ganesh/church: [employer] seatbelt use: always do you feel safe [...] 172 -?-?-?-?-?-?-?-?-?-?-?-?- KW- CRL cons wit h anthony. accepts NIPT. Labs at next appt 04/02/24 [...] -?-?-?-?-?-?-?-?-?-?-?-?- Negative 152 32 -?-?-?-?-?-?-?-?-?-?-?-?- MH-No CLINTON, lof. G ood FM. tdap, larc. Growth US. 07/30/24 -?-?-?-?-?-?-?-?-?-?-?-?- 31w 5d 292 lb (+25 lb) 118/78 Negative -?-?-?-?-?-?-?-?-?-?-?-?- Negative 158 35 -?-?-?-?-?-?-?-?-?-?-?-?- MH-No CLINTON, LOF. G ood Fm. FBS WNL except [...] Seasonal allergies J30.2 CPT Codes Non-Stress Test (70090) Assessment and Plan Assessment and Plan (1) [...] Cosigner Signature: Date (if applicable) CC: ~ [facility] Work Phone: Progress note Author Rhina Murcia [facility] Note Date/Time September 10, 2024 9:1 3am [facility] [address], [address] [place] [address] OFFICE VISIT Date of Service: 09/10/24 MR#: [id number] Acct: [id number] Name: SAMEER CABALLERO Rep #: [id number] : 1990 Provider: Dr. Madeline Sweeney DO Age/Sex: 34/F [place] [facility] Status: Signed Intake Vital Signs 07/16/24 15:29 09/02/24 08:49 09/10/24 08:25 09/10/24 08:26 Height 5 ft 5 in 5 ft 5 in 5 ft 5 in 5 ft 5 in Weight: 311 lb 7 oz BMI 51.8 BP 139/88 H Intake Visit Reasons: 38 wk ob/nst Mechanical Assembly Required: No Is patient in pain?: No Allergies No Known Allergies Allergy (Verified 09/10/24 08:) Medications ?Medication ?Instructions ?Recorded ?Confirmed ?Type multivit-min no.71-iron fum 28 cap PO 02/23/24 5 History mg-folate no.1 1 mg-dha 300 mg capsule (PNV-Paloma) blood sugar diagnostic (Blood #120 ea 07/03/24 5 Rx Glucose Test strips) blood-glucose meter #1 07/03/24 09/10/24 Rx lancets #100 07/03/24 09/10/24 Rx Last Menstrual Period: 12/21/23 Zika: Zika virus screening: Negative : No PFSH PFSH Medical History Seasonal allergies History of frequent headaches Surgical History [place] teeth extracted Family History Grandmother CVA (cerebral vascular accident) Maternal Diabetes Maternal Grandfather Myocardial infarction, Onset Age: 54 Maternal Social History adopted: No household members: spouse housing: house number of children: 0 current occupational status: employed current occupation: [employer] current occupational exposures/hazards: No pets and animals: [...] physical activity do you participate in: none ganesh/church: [employer] seatbelt use: always do you feel safe [...] 137/83 -?-?-?-?-?-?-?-?-?-?-?-?- 172 -?-?-?-?-?-?-?-?-?-?-?-?- KW- CRL cons mignon cruz. accepts NIPT. Labs at next appt 04/02/24 [...] Negative -?-?-?-?-?-?-?-?-?-?-?-?- Negative 152 32 -?-?-?-?-?-?-?-?-?-?-?-?- MH-No lof. Valerie ALONZO. tdap, larc. Growth US. 07/30/24 -?-?-?-?-?-?-?-?-?-?-?-?- 31w 5d 292 lb (+25 lb) 118/78 Negative -?-?-?-?-?-?-?-?-?-?-?-?- Negative 158 35 -?-?-?-?-?-?-?-?-?-?-?-?- MH-No CLINTON, LOF. Valerie Cyr. FBS WNL except 2 in 2 weeks. [...] can not be done prior to the 18th. will ask mfm. NST reactive. ACOG First [...] growth, unspecified trimester, not applicable or unspecified 09/10/24 0913 <Electronically signed by Rhina Torres DO> Date _ Rhina Sweeney DO Cosigner Signature: Date (if applicable) CC: ~ [facility] Work Phone: Progress note Author Shea Jennifer [facility] Note Date/Time October 01, 2024 10 :03am [facility] [address] [place] [address], [address] [place] [address] OFFICE VISIT Date of Service: 10/01/24 MR#: [id number] Acct: [id number] Name: SAMEER CABALLERO Rep #: [id number] : 1990 Provider: NERY Rodriguez Age/Sex: 34/F Location[place] [facility] Status: Signed Intake Vital Signs 09/17/24 13:22 09/20/24 05:07 10/01/24 09:48 10/01/24 09:53 Height 5 ft 5 in 5 ft 5 in 5 ft 5 in 5 ft 5 in Weight: 275 lb 1 oz BMI 45.8 BP 126/84 H Intake Visit Reasons: 2wk incision check, BP check *per JV 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: 2 Week Incision check Mechanical Assembly Required: No Is patient in pain?: No Allergies No Known Allergies Allergy (Verified 10/01/24 09:47) Medications ?Medication ?Instructions ?Recorded ?Confirmed ?Type ibuprofen 800 mg tablet 800 mg PO Q8H PRN pain #30 t abs 09/20/24 10/01/24 Rx nifedipine 30 mg tablet,extended 30 mg PO BID 30 days #60 tabs 09/24/24 10/01/24 Rx release 24 hr (Procardia XL) labetalol 300 mg tablet 300 mg PO BID #60 tabs 10/0110/01/24 Rx Is last menstrual period known: No Post menopausal: No Patient : No : Yes PFSH Medical History Anemia Seasonal allergies History of frequent headaches Surgical History [place] teeth extracted Family History Grandmother CVA (cerebral vascular accident) Maternal Diabetes Maternal Grandfather Myocardial infarction, Onset Age: 54 Maternal Social History adopted: No household members: spouse housing: house number of children: 0 current occupational status: employed current occupation: [employer] current occupational exposures/hazards: No pets and animals: [...] physical activity do you participate in: none ganesh/church: [employer] seatbelt use: always do you feel safe at home: Yes additional social history: - Mc - [facility] HPI 2wk incision check, BP check *per JV Details: SAMEER CABALLERO is a 34 year old who presents for 2 week postop c section Dr Sweeeny and also BP check. States home BPs WNL. Taking ibuprofen prn for discomfort but feels that she is doing well. Denies issues bowel/bladder habits History 1 Elective abortions Hx Para 0 Spontaneous abortions Hx # Term Pregnancies 1 Ectopic pregnancies Hx # Pregnancies Multiple births # of living children 1 Past Pregnancies Del. Date Name GA/Weeks Outcome Route Bth Weight Gen Labor Lgth Anesthesia [facility] Provider FOB 09/20/24 Leatha 39 live - full term 10lbs 7oz Female spinal [facility] J Mc Delivery Date: 09/20/24 Last Updated by: Mariely Vasquez RN primary cs for LGA 10lbs 7oz Exam Const General: cooperative and no acute distress Orientation: oriented x3 GI Inspection: incision (well healed, nonerythematous) Palpation: soft and nontender Coding Level of Care Code No Charge Diagnoses Postop check Z09 Iron deficiency anemia, unspecified iron deficiency anemia type D50.9 Anemia type: iron deficiency Iron deficiency anemia type: unspecified iron deficiency Status post section Z98.891 Elevated BP without diagnosis of hypertension R03.0 Assessment and Plan Assessment and Plan (1) Postop check: (2) Anemia: Status: Acute Qualifiers: Anemia type: iron deficiency Iron deficiency anemia type: unspecified iron deficiency Qualified Code(s): D50.9 - Iron deficiency anemia, unspecified Comment: enc needs to take PNV. CBC today (3) Status post section: Status: Acute Comment: primary c/s (4) Elevated BP without diagnosis of hypertension: Status: Acute Orders: Orders CBC W/Diff, Automated Today D64.9 - Anemia, unspecified Medications: Changed From labetalol 300 mg PO TID 30 days 90 tabs 0RF To labetalol 300 mg PO BID 60 tabs 2RF Plan CBC Reduce labetalol to bid and refill sent routine pp care RTO 4 weeks 10/01/24 1003 <Electronically signed by Shea rutherford LIVER TRIMMER LIVER TRIMMER-C> Date _ Shea Rodriguez LIVER TRIMMER LIVER TRIMMER-C Cosigner Signature: Date (if applicable) CC: ~ [facility] Work Phone: Reason for referral (narrative)No reason for referral information availableWWVUMedicine [facility] Work Phone: 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 and Reason for Visit 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 Admit Date Annual ([employer]) December 25, 2023 7:33am PAP December 25, [...] 9:16am Supervision of high-risk Febru mell2024 9:16am 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 Admit Date New OB, LMP 1114, LORY 09/26/24 February 072024 2:07pm 14wk OB [...] 2024 2 :07pm Supervision of normal first [facility] 2024 2:07pm HPV in female April 02, [...] 2024 9:16am Supervision of high-risk Febru mell 25th, 2025 9:16am HPV in female May 02, 2024 [...] 3:24pm LGA (large for gestational age) fetus 2024 3:24pm Obesity affecting July 16, 025 3:24pm July 16, 2024 3:24 pm Seasonal allergies July 16, 2024 3:24 pm Supervision of high-risk July 16, 2024 3:24pm Abnormal glucose tolerance t est during , antepartum July 30, 2024 8:19am HPV in female July 30, 2024 8:19 am LGA (large for gestational age) fetus [facility] 2024 8:19am Obesity affecting July 30, 2 [...] 19, 2024 8:32am Obesity affecting August 19, 2 025 8:32am August 19, 2024 8:32 am [...] mother August 26, 2024 8:38am Obesity affecting Vicky 21st, 2 025 8:38am August 26, 2024 8:38 am [...] 26, 2024 9:37am 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 Admit Date wk ob May [...] August 26 9:37am Obesity affecting August 26 9:37am August 26, 2024 9:37 am contractions [...] nonreactive September 02 8:33am Obesity affecting September 02 025 8:33am [...] 2024 8:1 5am Supervision of high-risk Augus 2024 8:15am 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 Admit Date wk [...] nonreactive August 26, 9:37am Obesity affecting August 26 025 9:37am [...] Supervision of high-risk Augus t 2024 1:17pm 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 Admit Date 23wk ob May [...] wk ob September 17, 2024 1: 17pm CSECTION/CSECTION DELIVERY September 20, 2024 4:59am SCHEDULED SECTION September 20, 2024 7:16am CSECTION/CSECTION DELIVERY September 21, 2024 8:43am CSECTION/CSECTION DELIVERY September 22, 2024 10:29am CSECTION/CSECTION DELIVERY September 23, 2024 8:14am CSECTION/CSECTION DELIVERY September 24, 2024 7:34am Reason for Visit Admit Date HPV in [...] 2024 8:33am Non-stress test nonreactive September 02, 8:33am Obesity affecting September 02 8:33am September 02, 2024 8:33 am contractions [...] 2024 8:1 5am Supervision of high-risk Augus 2024 8:15am Abnormal glucose tolerance test during [...] 2024 1: 17pm Supervision of high-risk Augus 2024 1:17pm Abnormal glucose tolerance test during p regnancy, antepartum September 20, 2024 4:59am Elevated BP without diagnosis of hyperte nsion September 20, 2024 4:59am HPV in female September 20, 2024 4: 59am LGA (large for gestational a ge) fetus affecting management of mother September 20, 2024 4:59am LGA (large for gestational a ge) fetus affecting mother, antepartum September 20, 2024 4:59am Non-stress test nonreactive September 20, 2024 4:59am Obesity affecting September 20, 2024 4:59am September 20, 2024 4: 59am contractions September 20, 2024 4 :59am Seasonal allergies September 20, 2024 4: 59am Status post section September 4:59am Supervision of high-risk Augus t 2024 4:59am 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 Admit Date 27wk ob/glucose June 24, 2024 3:30p m [...] wk ob September 17, 2024 1: 17pm CSECTION/CSECTION DELIVERY September 20, 2024 4:59am SCHEDULED SECTION September 20, 2024 7:16am CSECTION/CSECTION DELIVERY September 21, 2024 8:43am CSECTION/CSECTION DELIVERY September 22, 2024 10:29am CSECTION/CSECTION DELIVERY September 23, 2024 8:14am CSECTION/CSECTION DELIVERY September 24, 2024 7:34am 2wk incision check, BP check *per JV Sep us2024 9:39am Reason for Visit Admit Date HPV in female June 24, 2024 3:30p m June 24, 2024 3:30p m Seasonal allergies June 24, 2024 3:30p m Supervision of high-risk June 062024 3:30pm Obesity affecting June 24 3:30pm July 16, 2024 3:24 pm Seasonal allergies July 16, 2024 3:24 pm Supervision of high-risk July 16, 2024 3:24pm Abnormal glucose tolerance test during p regnancy, antepartum July 16, 2024 3:24pm LGA (large for gestational age) fetus Ju 2024 3:24pm Obesity affecting July 16 025 3:24pm July 30, 2024 8:19 am Supervision of high-risk July 30, 2024 8:19am Abnormal glucose tolerance test during p regnancy, antepartum July 30, 2024 8:19am LGA (large for gestational age) fetus Ju ne 2024 8:19am Obesity affecting July 30, 025 8:19am HPV in female August 12, 2024 8:07a m LGA (large for gestational a ge) fetus affecting management of mother August 12, 2024 8:07am August 12, 2024 8:07a m Seasonal allergies August 12, 2024 8:07a m Supervision of high-risk August 12, 2024 8:07am Abnormal glucose tolerance test during p regnancy, antepartum August 12, 2024 8:07am LGA (large for gestational age) fetus Ju 2024 8:07am Obesity affecting August 12 8:07am HPV in female August 19, 2024 8:32 am LGA (large for gestational a ge) fetus affecting management of mother August 19, 2024 8:32am August 19, 2024 8:32 am Seasonal allergies August 19, 2024 8:32 am Supervision of high-risk August 19, 2024 8:32am Abnormal glucose tolerance test during p regnancy, antepartum August 19, 2024 8:32am Obesity affecting August 19 8:32am contractions August 19, 2024 8:3 2am HPV in female August 26, 2024 8:38 am LGA (large for gestational a ge) fetus affecting management of mother August 26, 2024 8:38am August 26, 2024 8:38 am Seasonal allergies August 26, 2024 8:38 am Supervision of high-risk August 26, 2024 8:38am Abnormal glucose tolerance test during p regnancy, antepartum August 26, 2024 8:38am Obesity affecting August 26 8:38am contractions August 26, 2024 8:3 8am HPV in female August 26, 2024 9:37 am LGA (large for gestational a ge) fetus affecting management of mother August 26, 2024 9:37am August 26, 2024 9:37 am Seasonal allergies August 26, 2024 9:37 am Supervision of high-risk August 26, 2024 9:37am Abnormal glucose tolerance test during p regnancy, antepartum August 26, 2024 9:37am Non-stress test nonreactive August 26 025 9:37am Obesity affecting August 26 9:37am contractions August 26, 2024 9:3 7am HPV in female September 02, 2024 8:33 am LGA (large for gestational a ge) fetus affecting management of mother September 02, 2024 8:33am September 02, 2024 8:33 am Seasonal allergies September 02, 2024 8:33 am Supervision of high-risk September 02, 2024 8:33am Abnormal glucose tolerance test during p regnancy, antepartum September 02, 2024 8:33am Non-stress test nonreactive September 02, 025 8:33am Obesity affecting September 02, 2 025 8:33am contractions September 02, 2024 8:3 3am HPV in female September 10, 2024 8:1 5am LGA (large for gestational a ge) fetus affecting management of mother September 10, 2024 8:15am September 10, 2024 8:1 5am Seasonal allergies September 10, 2024 8:1 5am Supervision of high-risk Augus t 2024 8:15am Abnormal glucose tolerance test during p regnancy, antepartum September 10, 2024 8:15am Non-stress test nonreactive September 10, 2024 8:15am Obesity affecting September 10, 2024 8:15am contractions September 10, 2024 8: 15am Elevated BP without diagnosis of hyperte nsion September 13, 2024 12:00pm HPV in female September 13, 2024 12: 00pm LGA (large for gestational a ge) fetus affecting management of mother September 13, 2024 12:00pm September 13, 2024 12: 00pm Seasonal allergies September 13, 2024 12: 00pm Supervision of high-risk Augus t 2024 12:00pm Abnormal glucose tolerance test during p regnancy, antepartum September 13, 2024 12:00pm Non-stress test nonreactive September 13, 2024 12:00pm Obesity affecting September 13, 2024 12:00pm contractions September 13, 2024 12 :00pm Elevated BP without diagnosis of hyperte nsion September 17, 2024 1:17pm HPV in female September 17, 2024 1: 17pm LGA (large for gestational a ge) fetus affecting management of mother September 17, 2024 1:17pm September 17, 2024 1: 17pm Seasonal allergies September 17, 2024 1: 17pm Supervision of high-risk Augus t 2024 1:17pm Abnormal glucose tolerance test during p regnancy, antepartum September 17, 2024 1:17pm Non-stress test nonreactive September 17, 2024 1:17pm Obesity affecting September 17, 2024 1:17pm contractions September 17, 2024 1 :17pm Elevated BP without diagnosis of hyperte nsion September 20, 2024 4:59am HPV in female September 20, 2024 4: 59am LGA (large for gestational a ge) fetus affecting management of mother September 20, 2024 4:59am September 20, 2024 4: 59am Seasonal allergies September 20, 2024 4: 59am Status post section September 4:59am Supervision of high-risk Augus 2024 4:59am Abnormal glucose tolerance test during p regnancy, antepartum September 20, 2024 4:59am LGA (large for gestational a ge) fetus affecting mother, antepartum September 20, 2024 4:59am Non-stress test nonreactive September 20, 2024 4:59am Obesity affecting September 20, 2024 4:59am contractions September 20, 2024 4 :59am Anemia October 01, 2024 9: 39am Elevated BP without diagnosis of hyperte nsion October 01, 2024 9:39am Status post section September 9:39am Postop check October 01, 2024 9: 39am 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 Admit Date 27wk ob/glucose June 24, 2024 3:30p m [...] wk ob September 17, 2024 1: 17pm CSECTION/CSECTION DELIVERY September 20, 2024 4:59am SCHEDULED SECTION September 20, 2024 7:16am CSECTION/CSECTION DELIVERY September 21, 2024 8:43am CSECTION/CSECTION DELIVERY September 22, 2024 10:29am CSECTION/CSECTION DELIVERY September 23, 2024 8:14am CSECTION/CSECTION DELIVERY September 24, 2024 7:34am 2wk incision check, BP check *per JV Sep ust 2024 9:39am PP Headaches/Dizziness October 15 2:50pm Reason for Visit Admit Date HPV in female June 24, 2024 3:30p m June 24, 2024 3:30p m Seasonal allergies June 24, 2024 3:30p m Supervision of high-risk June 062024 3:30pm Obesity affecting June 24 3:30pm July 16, 2024 3:24 pm Seasonal allergies July 16, 2024 3:24 pm Supervision of high-risk July 16, 2024 3:24pm Abnormal glucose tolerance t est during , antepartum July 16, 2024 3:24pm LGA (large for gestational age) fetus Ju 2024 3:24pm Obesity affecting July 16, 025 3:24pm July 30, 2024 8:19 am Supervision of high-risk July 30, 2024 8:19am Abnormal glucose tolerance t est during , antepartum July 30, 2024 8:19am LGA (large for gestational age) fetus Ju ne 2024 8:19am Obesity affecting July 30, 2 025 8:19am HPV in female August 12, 2024 8:07a m LGA (large for gestational a ge) fetus affecting management of mother August 12, 2024 8:07am August 12, 2024 8:07a m Seasonal allergies August 12, 2024 8:07a m Supervision of high-risk August 12, 2024 8:07am Abnormal glucose tolerance t est during , antepartum August 12, 2024 8:07am LGA (large for gestational age) fetus Ju 2024 8:07am Obesity affecting August 12 8:07am HPV in female August 19, 2024 8:32 am LGA (large for gestational a ge) fetus affecting management of mother August 19, 2024 8:32am August 19, 2024 8:32 am Seasonal allergies August 19, 2024 8:32 am Supervision of high-risk August 19, 2024 8:32am Abnormal glucose tolerance t est during , antepartum August 19, 2024 8:32am Obesity affecting August 19 8:32am contractions August 19, 2024 8:3 2am HPV in female August 26, 2024 8:38 am LGA (large for gestational a ge) fetus affecting management of mother August 26, 2024 8:38am August 26, 2024 8:38 am Seasonal allergies August 26, 2024 8:38 am Supervision of high-risk August 26, 2024 8:38am Abnormal glucose tolerance t est during , antepartum August 26, 2024 8:38am Obesity affecting August 26 8:38am contractions August 26, 2024 8:3 8am HPV in female August 26, 2024 9:37 am LGA (large for gestational a ge) fetus affecting management of mother August 26, 2024 9:37am August 26, 2024 9:37 am Seasonal allergies August 26, 2024 9:37 am Supervision of high-risk August 26, 2024 9:37am Abnormal glucose tolerance t est during , antepartum August 26, 2024 9:37am Non-stress test nonreactive August 26 9:37am Obesity affecting August 26 9:37am contractions August 26, 2024 9:3 7am HPV in female September 02, 2024 8:33 am LGA (large for gestational a ge) fetus affecting management of mother September 02, 2024 8:33am September 02, 2024 8:33 am Seasonal allergies September 02, 2024 8:33 am Supervision of high-risk September 02, 2024 8:33am Abnormal glucose tolerance t est during , antepartum September 02, 2024 8:33am Non-stress test nonreactive September 02 8:33am Obesity affecting September 02 8:33am contractions September 02, 2024 8:3 3am HPV in female September 10, 2024 8:1 5am LGA (large for gestational a ge) fetus affecting management of mother September 10, 2024 8:15am September 10, 2024 8:1 5am Seasonal allergies September 10, 2024 8:1 5am Supervision of high-risk Augus t 2024 8:15am Abnormal glucose tolerance t est during , antepartum September 10, 2024 8:15am Non-stress test nonreactive September 10, 2024 8:15am Obesity affecting September 10, 2024 8:15am contractions September 10, 2024 8: 15am Elevated BP without diagnosis of hyperte nsion September 13, 2024 12:00pm HPV in female September 13, 2024 12: 00pm LGA (large for gestational a ge) fetus affecting management of mother September 13, 2024 12:00pm September 13, 2024 12: 00pm Seasonal allergies September 13, 2024 12: 00pm Supervision of high-risk Augus t 2024 12:00pm Abnormal glucose tolerance t est during , antepartum September 13, 2024 12:00pm Non-stress test nonreactive September 13, 2024 12:00pm Obesity affecting September 13, 2024 12:00pm contractions September 13, 2024 12 :00pm Elevated BP without diagnosis of hyperte nsion September 17, 2024 1:17pm HPV in female September 17, 2024 1: 17pm LGA (large for gestational a ge) fetus affecting management of mother September 17, 2024 1:17pm September 17, 2024 1: 17pm Seasonal allergies September 17, 2024 1: 17pm Supervision of high-risk Augus t 2024 1:17pm Abnormal glucose tolerance t est during , antepartum September 17, 2024 1:17pm Non-stress test nonreactive September 17, 2024 1:17pm Obesity affecting September 17, 2024 1:17pm contractions September 17, 2024 1 :17pm Elevated BP without diagnosis of hyperte nsion September 20, 2024 4:59am HPV in female September 20, 2024 4: 59am LGA (large for gestational a ge) fetus affecting management of mother September 20, 2024 4:59am September 20, 2024 4: 59am Seasonal allergies September 20, 2024 4: 59am Status post section September 4:59am Supervision of high-risk Augus 2024 4:59am Abnormal glucose tolerance t est during , antepartum September 20, 2024 4:59am LGA (large for gestational a ge) fetus affecting mother, antepartum September 20, 2024 4:59am Non-stress test nonreactive September 20, 2024 4:59am Obesity affecting September 20, 2024 4:59am contractions September 20, 2024 4 :59am Anemia October 01, 2024 9: 39am Elevated BP without diagnosis of hyperte nsion October 01, 2024 9:39am Status post section September 9:39am Postop check October 01, 2024 9: 39am Routine Follow-Up October 152024 2:50pm Family History No Family History Records Found Relationship Condition Age at Onset Recorded Date/T zully grandmother Cerebrovascular accident (CVA) Unknown Diabetes mellitus Unknown grandfather Myocardial infarction 54 Summary Purpose Advance Directives No Advanced Directives Records Found Advance Directive Response Recorded Date/ Time Do you have a Healthcare Power of Form Drafter? No September 20, 2024 5:07am Additional Source Comments Care Teams (unrecognized sec [...] End: May 02, 2024 Shea Rodriguez NP, LIVER TRIMMER-C Attending Provider Active Start: May 02, 2024 [...] 2024 End: July 16, 2024 Shea Rodriguez LIVER TRIMMER, LIVER TRIMMER-C Attending Provider Active Start: July 16, 2024 End: July 16, 2024 Team Status: Inactive Member Role Status Dates No Primary Care Physician Primary Care Provider Active Start: July 22, 2024 End: July 22, 2024 Shea Rodriguez LIVER TRIMMER, LIVER TRIMMER-C Attending Provider Active Start: July 22, 2024 End: July 22, 2024 Shea Rodriguez LIVER TRIMMER, LIVER TRIMMER-C Referring Provider Active Start: July 22, 2024 End: July 22, 2024 Team Status: Inactive Member Role Status Dates No Primary Care Physician Primary Care Provider Active Start: July 30, 2024 End: July 30, 2024 No Primary Care Physician Referring Provider Active Start: July 30, 2024 End: July 30, 2024 Shea Rodriguez LIVER TRIMMER, LIVER TRIMMER-C Attending Provider Active Start: July 30, 2024 [...] End: May 02, 2024 Shea Rodriguez NP, LIVER TRIMMER-C Attending Provider Active Start: May 02, 2024 [...] 2024 End: July 16, 2024 Shea Rodriguez LIVER TRIMMER, LIVER TRIMMER-C Attending Provider Active Start: July 16, 2024 End: July 16, 2024 Team Status: Inactive Member Role/Relationship Status Dates No Primary Care Physician Primary Care Provider Active Start: July 22, 2024 End: July 22, 2024 Shea Rodriguez LIVER TRIMMER, LIVER TRIMMER-C Attending Provider Active Start: July 22, 2024 End: July 22, 2024 Shea Rodriguez LIVER TRIMMER, LIVER TRIMMER-C Referring Provider Active Start: July 22, 2024 End: July 22, 2024 Team Status: Inactive Member Role/Relationship Status Dates No Primary Care Physician Primary Care Provider Active Start: July 30, 2024 End: July 30, 2024 No Primary Care Physician Referring Provider Active Start: July 30, 2024 End: July 30, 2024 Shea Rodriguez LIVER TRIMMER, LIVER TRIMMER-C Attending Provider Active Start: July 30, 2024 [...] Active Start: August 21, 2024 Shea Rodriguez LIVER TRIMMER, LIVER TRIMMER-C Attending Provider Active Start: August 21, 2024 Shea Rodriguez LIVER TRIMMER, LIVER TRIMMER-C Referring Provider Active Start: August 21, 2024 [...] 2024 End: August 21, 2024 Shea Rodriguez LIVER TRIMMER, LIVER TRIMMER-C Attending Provider Active Start: August 21, 2024 End: August 21, 2024 Shea Rodriguez LIVER TRIMMER, LIVER TRIMMER-C Referring Provider Active Start: August 21, 2024 [...] 2024 End: July 16, 2024 Shea Rodriguez LIVER TRIMMER, LIVER TRIMMER-C Attending Provider Active Start: July 16, 2024 End: July 16, 2024 Team Status: Inactive Member Role/Relationship Status Dates No Primary Care Physician Primary Care Provider Active Start: July 22, 2024 End: July 22, 2024 Shea Rodriguez LIVER TRIMMER, LIVER TRIMMER-C Attending Provider Active Start: July 22, 2024 End: July 22, 2024 Shea Rodriguez LIVER TRIMMER, LIVER TRIMMER-C Referring Provider Active Start: July 22, 2024 End: July 22, 2024 Team Status: Inactive Member Role/Relationship Status Dates No Primary Care Physician Primary Care Provider Active Start: July 30, 2024 End: July 30, 2024 No Primary Care Physician Referring Provider Active Start: July 30, 2024 End: July 30, 2024 Shea Rodriguez LIVER TRIMMER, LIVER TRIMMER-C Attending Provider Active Start: July 30, 2024 [...] August 19, 2024 Dr. Rhina Sweeney , Attending Provider Activ e Start: August 19, 2024 End: August 19, 2024 Team Status: Inactive Member Role/Relationship Status Dates No Primary Care Physician Primary Care Provider Active Start: August 21, 2024 End: August 21, 2024 Shea Rodriguez LIVER TRIMMER, LIVER TRIMMER-C Attending Provider Active Start: August 21, 2024 End: August 21, 2024 Shea Rodriguez LIVER TRIMMER, LIVER TRIMMER-C Referring Provider Active Start: August 21, 2024 [...] End: September 10, 2024 Dr. Rhina Sweeney DO Attending Provider Activ e Start: September 10, [...] September 17, 2024 End: September 17, 2024 Team Status: Inactive Member Role/Relationship Status Dates No Primary Care Physician Primary Care Provider Active Start: September 20, 2024 End: September 24, 2024 Dr. Rhina Sweeney DO Admit Provider Active Start: September 20, 2024 End: September 24, 2024 Dr. Rhina Sweeney DO Attending Provider Activ e Start: September 20, 2024 End: September 24, 2024 Dr. Rhina Sweeney DO Referring Provider Activ e Start: September 20, 2024 End: September 24, 2024 Team Status: Active Member Role/Relationship Status Dates No Primary Care Physician Primary Care Provider Active Start: September 20, 2024 Dr. Rhina Sweeney DO Admit Provider Active Start: September 20, 2024 Dr. Rhina Sweeney DO Attending Provider Activ e Start: September 20, 2024 Dr. Rhina Sweeney DO Other Provider Active Start: September 20, 2024 Team Status: Active Member Role/Relationship Status Dates No Primary Care Physician Primary Care Provider Active Start: September 21, 2024 Dr. Rhina Sweeney DO Admit Provider Active Start: September 21, 2024 Dr. Rhina Sweeney DO Referring Provider Activ e Start: September 21, 2024 Dr. Rhina Sweeney DO Other Provider Active Start: September 21, 2024 Milady Hensley CNM Attending Provider Active Start: September 21, 2024 Team Status: Active Member Role/Relationship Status Dates No Primary Care Physician Primary Care Provider Active Start: September 22, 2024 Dr. Rhina Sweeney DO Admit Provider Active Start: September 22, 2024 Dr. Rhina Sweeney DO Referring Provider Activ e Start: September 22, 2024 Dr. Rhina Sweeney DO Other Provider Active Start: September 22, 2024 Dr. Maris Aragon MD Attending Provider Active Start: September 22, 2024 Team Status: Active Member Role/Relationship Status Dates No Primary Care Physician Primary Care Provider Active Start: September 23, 2024 Dr. Rhina Sweeney DO Admit Provider Active Start: September 23, 2024 Dr. Rhina Sweeney DO Referring Provider Activ e Start: September 23, 2024 Dr. Rhina Sweeney DO Other Provider Active Start: September 23, 2024 Earline Andrade CNM Attending Provider Active S tart: September 23, 2024 Team Status: Active Member Role/Relationship Status Dates No Primary Care Physician Primary Care Provider Active Start: September 24, 2024 Dr. Rhina Sweeney DO Admit Provider Active Start: September 24, 2024 Dr. Rhina Sweeney DO Attending Provider Activ e Start: September 24, 2024 Dr. Rhina Sweeney DO Referring Provider Activ e Start: September 24, 2024 Dr. Rhina Sweeney DO Other Provider Active Start: September 24, 2024 Team Status: Inactive Member Role/Relationship [...] 2024 End: July 16, 2024 Shea Rodriguez LIVER TRIMMER, LIVER TRIMMER-C Attending Provider Active Start: July 16, 2024 End: July 16, 2024 Team Status: Inactive Member Role/Relationship Status Dates No Primary Care Physician Primary Care Provider Active Start: July 22, 2024 End: July 22, 2024 Shea Rodriguez LIVER TRIMMER, LIVER TRIMMER-C Attending Provider Active Start: July 22, 2024 End: July 22, 2024 Shea Rodriguez LIVER TRIMMER, LIVER TRIMMER-C Referring Provider Active Start: July 22, 2024 End: July 22, 2024 Team Status: Inactive Member Role/Relationship Status Dates No Primary Care Physician Primary Care Provider Active Start: July 30, 2024 End: July 30, 2024 No Primary Care Physician Referring Provider Active Start: July 30, 2024 End: July 30, 2024 Shea Rodriguez LIVER TRIMMER, LIVER TRIMMER-C Attending Provider Active Start: July 30, 2024 [...] 2024 End: August 21, 2024 Shea Rodriguez LIVER TRIMMER, LIVER TRIMMER-C Attending Provider Active Start: August 21, 2024 End: August 21, 2024 Shea Rodriguez LIVER TRIMMER, LIVER TRIMMER-C Referring Provider Active Start: August 21, 2024 [...] End: September 10, 2024 Dr. Rhina Sweeney DO Attending Provider Activ e Start: September 10, [...] September 17, 2024 End: September 17, 2024 Team Status: Inactive Member Role/Relationship Status Dates No Primary Care Physician Primary Care Provider Active Start: September 20, 2024 End: September 24, 2024 Dr. Rhina Sweeney DO Admit Provider Active Start: September 20, 2024 End: September 24, 2024 Dr. Rhina Sweeney DO Attending Provider Activ e Start: September 20, 2024 End: September 24, 2024 Dr. Rhina Sweeney DO Referring Provider Activ e Start: September 20, 2024 End: September 24, 2024 Team Status: Active Member Role/Relationship Status Dates No Primary Care Physician Primary Care Provider Active Start: September 20, 2024 Dr. Rhina Sweeney DO Admit Provider Active Start: September 20, 2024 Dr. Rhina Sweeney DO Attending Provider Activ e Start: September 20, 2024 Dr. Rhina Sweeney DO Other Provider Active Start: September 20, 2024 Team Status: Active Member Role/Relationship Status Dates No Primary Care Physician Primary Care Provider Active Start: September 21, 2024 Dr. Rhina Sweeney DO Admit Provider Active Start: September 21, 2024 Dr. Rhina Sweeney DO Referring Provider Activ e Start: September 21, 2024 Dr. Rhina Sweeney DO Other Provider Active Start: September 21, 2024 Milady Hensley CNM Attending Provider Active Start: September 21, 2024 Team Status: Active Member Role/Relationship Status Dates No Primary Care Physician Primary Care Provider Active Start: September 22, 2024 Dr. Rhina Sweeney DO Admit Provider Active Start: September 22, 2024 Dr. Rhina Sweeney DO Referring Provider Activ e Start: September 22, 2024 Dr. Rhina Sweeney DO Other Provider Active Start: September 22, 2024 Dr. Maris Aragon MD Attending Provider Active Start: September 22, 2024 Team Status: Active Member Role/Relationship Status Dates No Primary Care Physician Primary Care Provider Active Start: September 23, 2024 Dr. Rhina Sweeney DO Admit Provider Active Start: September 23, 2024 Dr. Rhina Sweeney DO Referring Provider Activ e Start: September 23, 2024 Dr. Rhina Sweeney DO Other Provider Active Start: September 23, 2024 Earline Andrade CNM Attending Provider Active S tart: September 23, 2024 Team Status: Active Member Role/Relationship Status Dates No Primary Care Physician Primary Care Provider Active Start: September 24, 2024 Dr. Rhina Sweeney DO Admit Provider Active Start: September 24, 2024 Dr. Rhina Vande Velde , DO Attending Provider Activ e Start: September 24, 2024 Dr. Rhina Sweeney , DO Referring Provider Activ e Start: September 24, 2024 Dr. Rhina Sweeney , DO Other Provider Active Start: September 24, 2024 Team Status: Inactive Member Role/Relationship Status Dates No Primary Care Physician Primary Care Provider Active Start: October 01, 2024 End: October 01, 2024 No Primary Care Physician Referring Provider Active Start: October 01, 2024 End: October 01, 2024 Shea Rodriguez LIVER TRIMMER, LIVER TRIMMER-C Attending Provider Active Start: October 01, 2024 End: October 01, 2024 Team Status: Active Member Role/Relationship Status Dates No Primary Care Physician Primary Care Provider Active Start: October 01, 2024 Shea Rodriguez LIVER TRIMMER, LIVER TRIMMER-C Attending Provider Active Start: October 01, 2024 Team Status: Inactive Member Role/Relationship Status Dates No Primary Care Physician Primary Care Provider Active Start: October 01, 2024 End: October 01, 2024 Shea Rodriguez LIVER TRIMMER, LIVER TRIMMER-C Attending Provider Active Start: October 01, 2024 End: October 01, 2024 Team Status: Inactive Member Role/Relationship Status Dates No Primary Care Physician Primary Care Provider Active Start: October 15, 2024 End: October 15, 2024 No Primary Care Physician Referring Provider Active Start: October 15, 2024 End: October 15, 2024 Shea Rodriguez LIVER TRIMMER, LIVER TRIMMER-C Attending Provider Active Start: October 15, 2024 End: October 15, 2024 Goals (unrecognized section and content) Goals [...] section and content) DATE CREATED AUTHOR 09/19/2024 [facility] DATE CREATED AUTHOR AUTHOR'S THEA PALMER 10/26/2024 [facility] FOR RECORDS PERTAINING TO PATIENTS WHO [...] BE BASED ON THE PRIMARY CLINICAL RECORDS. [employer] [facility]. provides no warranty or guarantee of the accuracy or completeness of information in this document.
== END | disposition home or self-care (01) ==
LOC: LABSPEC 16:25
PROVIDERS: Visit Provider Obstetrics & Gynecology
DX: Z12.4 Encounter for screening for malignant neoplasm of cervix (principal)
CPT/HCPCS: 87624; 88175; G0145